=== PATIENT | male | born 1950 | race Caucasian/White ===

== ENCOUNTER 2016-11-01 12:05 | Emergency (ER) | payer MEDICARE, OTHER ==
[~2016-11-01] VITALS: Ht 182.9 cm; Wt 165.0 kg
[~2016-11-01 12:05] MED LIST: ALBU6.7H INH; APIX5TAB PO; CLON.2 PO; DUONI NEB; EFFE150C PO; FENO145T2 PO; GABA600T PO; HYZA100T6 PO; METO100T PO; NITR0.4S SL; NOVOLOGP2 SQ; NOVONP2 SQ; OXYC15TA PO; PROT40TA PO; SUCR1TAB PO; TIOT18I INH; ZYRT10TA12 PO
[2016-11-01 12:15] VITALS: BP 178/78; PULSE 84; RESP 18; TEMP 98.1; O2SAT 98
[2016-11-01 12:21] VITALS: RESP 18; O2SAT 98
[2016-11-01] MEDS ORDERED: SODIUM CHLORIDE 0.9% FLUSH 5 ML FLUSH IVF PRN ×2 (12:30→13:30)
[2016-11-01] MEDS ORDERED: RESP: ALBUTEROL 2.5 MG/IPRATROPIUM 0.5 MG NEB (SCH) NEB ONE (12:30)
[2016-11-01] MEDS ORDERED: FUROSEMIDE 40 MG/4 ML VIAL IV PUSH ONE (12:30)
--- NOTE | 2016-11-01 12:33 | PD ---
HPI Chief Complaint: Chest Pain Time Seen by Provider: 12:18 Travel History International Travel<30 days: No Contact w/Intl Traveler<30days: No Traveled to known affect area: No History of Present Illness HPI 65 y/o male presents with chest pain and shortness of breath that is been going on over the past couple days. He states he tried his inhaler but it did not help the symptoms and it made him feel worse. He states he recently went to his primary care physician and was given Lasix and potassium but he has not taken those recently. He states he had a loop recorder and was called as his heart rate Dropping Low and they advised him to come to the emergency room. He states he's had ablations before and follows with Dr. Bridges. He states before his ablation in April he had a heart catheterization as well. He states that he feels worse when he moves around. He denies other modifying factors. Quality is hard to catch breath. Severity is worsening. Duration is couple of days. PFSH Past Medical History Hx Anticoagulant Therapy: Yes (ELIQUIS) Arthritis: Yes Asthma: Yes Depression: Yes Heart Rhythm Problems: Yes (tachy and britney) Cancer: No (PROSTATE 2008, L BREAST 2006--ALSO REMOVED LYMPH NODES, COLON 2002) Cardiac Catheterization: Yes (states last ) Cardiovascular Problems: Yes (NM) High Cholesterol: Yes Chemotherapy: No Chest Pain: Yes Congestive Heart Failure: Yes COPD: Yes Cerebrovascular Accident: No Coronary Artery Disease: Yes Diabetes: Yes Diminished Hearing: Yes (bilateral aids) Endocrine: Yes Fibromyalgia: Yes Gastrointestinal Disorders: Yes (OCC ACID REFLUX) GERD: Yes Glaucoma: No Genitourinary: Yes (HX OF PROSTATE CA/PROSTATECTOMY 2008) Headaches: Yes Hepatitis: No Hiatal Hernia: Yes Hypertension: Yes Immune Disorder: No Implanted Vascular Access Dvce: Yes Kidney Stones: Yes Musculoskeletal: Yes (, HNP, SPINAL STENOSIS,back surgery 2013) Neurologic: Yes Psychiatric: Yes (CLAUSTROPHOBIC) Reproductive: No Respiratory: Yes (COPD) Integumentary: No Immunizations Current: Yes Migraines: Yes Pancreatitis: Yes Pneumonia: Yes Radiation Therapy: No Renal Failure: No Seizures: No Sleep Apnea: No Thyroid Disease: Yes Ulcer: Yes Past Surgical History Abdominal Surgery: Yes (COLON RESECTION R/T DIVERTICULITIS, COLON CA 2002) Appendectomy: Yes Body Medical Devices: /loop recorder, CAGE AND SCREWS L5-S1, CARDIAC STENT Cardiac Surgery: Yes Cholecystectomy: Yes Coronary Artery Bypass Graft: No Coronary Stent: Yes (X1) Ear Surgery: No Endocrine Surgery: No Eye Surgery: No Genitourinary Surgery: Yes (PROSTATECTOMY 2008) Gynecologic Surgery: No Hysterectomy: No Neurologic Surgery: Yes (BACK/NECK SURGERY) Oral Surgery: No Prostatectomy: Yes Thoracic Surgery: Yes (L BREAST 2006--ALSO REMOVED LYMPH NODES) Other Surgery: Yes (NECK AND BACK-L5, S1) Social History Alcohol Use: Yes (BEER OCCASSIONAL) Tobacco Use: No (quit 2003) Substance Use: No Allergies-Medications (Allergen,Severity, Reaction): Coded Allergies: Adhesives (Verified Allergy, Severe, Rash, 11/01/16) Atorvastatin (Verified Allergy, Severe, MUSCLE WEAKNESS, 11/01/16) CRESTOR (Verified Allergy, Severe, MUSCLE WEAKNESS, 11/01/16) Pravastatin (Verified Allergy, Severe, MUSCLE WEAKNESS, 11/01/16) Morphine (Verified Adverse Reaction, Severe, BECOMES VERY AGGRESSIVE, ) Reported Meds & Prescriptions Reported Meds & Active Scripts Active Prednisone 50 Mg Tab 50 Mg PO DAILY Metoprolol Tartrate 25 Mg Tab 25 Mg PO BID 30 Days Review of Systems Except as stated in HPI: all other systems reviewed are Neg Physical Exam Narrative GENERAL: Well-nourished, well-developed patient. SKIN: Warm and dry. HEAD: Normocephalic and atraumatic. EYES: No injection or drainage. ENT: No nasal drainage noted. NECK: Supple, trachea midline. CARDIOVASCULAR: Regular rate and rhythm RESPIRATORY: Breath sounds equal bilaterally. No accessory muscle use. GASTROINTESTINAL: Abdomen soft, non-tender, nondistended. EXTREMITIES: No edema. NEUROLOGICAL: Awake and alert. Moves all extremities. Normal speech. Data Data Last Documented VS Vital Signs Date Time Temp Pulse Resp B/P Pulse Ox O2 Delivery O2 Flow Rate FiO2 11/01/16 14:30 85 16 179/76 95 11/01/16 12:30 Room Air 11/01/16 12:15 98.1 Orders Electrocardiogram (11/01/16 12:19) B-Type Natriuretic Peptide (11/01/16 12:19) Ckmb (Isoenzyme) Profile (11/01/16 12:19) Complete Blood Count With Diff (11/01/16 12:19) Comprehensive Metabolic Panel (11/01/16 12:19) D-Dimer (11/01/16 12:19) Magnesium (Mg) (11/01/16 12:19) Prothrombin Time / Inr (Pt) (11/01/16 12:19) Act Partial Throm Time (Ptt) (11/01/16 12:19) Troponin I (11/01/16 12:19) Chest, Single Ap (11/01/16 12:19) Ecg Monitoring (11/01/16 12:19) Bilateral Bp Monitoring (11/01/16 12:19) Iv Access Insert/Monitor (11/01/16 12:19) Oximetry (11/01/16 12:19) Sodium Chloride 0.9% Flush (Ns Flush) (11/01/16 12:30) Albuterol-Ipratropium Neb (Duoneb Neb) (11/01/16 12:30) Furosemide Inj (Lasix Inj) (11/01/16 12:30) CKMB (11/01/16 12:23) CKMB% (11/01/16 12:23) Sodium Chloride 0.9% Flush (Ns Flush) (11/01/16 13:30) Methylprednisolone So Succ Inj (Solumedr (11/01/16 13:30) Albuterol-Ipratropium Neb (Duoneb Neb) (11/01/16 13:30) Urinalysis - C+S If Indicated (11/01/16 13:36) Labs Laboratory Tests Test 11/01/16 11/01/16 12:23 14:15 White Blood Count 11.3 TH/MM3 Red Blood Count 4.28 MIL/MM3 Hemoglobin 11.1 GM/DL Hematocrit 33.9 % Mean Corpuscular Volume 79.1 FL Mean Corpuscular Hemoglobin 26.0 PG Mean Corpuscular Hemoglobin 32.9 % Concent Red Cell Distribution Width 12.6 % Platelet Count 309 TH/MM3 Mean Platelet Volume 7.4 FL Neutrophils (%) (Auto) 64.1 % Lymphocytes (%) (Auto) 24.4 % Monocytes (%) (Auto) 7.1 % Eosinophils (%) (Auto) 3.3 % Basophils (%) (Auto) 1.1 % Neutrophils # (Auto) 7.2 TH/MM3 Lymphocytes # (Auto) 2.7 TH/MM3 Monocytes # (Auto) 0.8 TH/MM3 Eosinophils # (Auto) 0.4 TH/MM3 Basophils # (Auto) 0.1 TH/MM3 CBC Comment DIFF FINAL Differential Comment Prothrombin Time 10.5 SEC Prothromb Time International 1.0 RATIO Ratio Activated Partial 24.5 SEC Thromboplast Time D-Dimer Quantitative (PE/DVT) 0.23 MG/L FEU Sodium Level 138 MEQ/L Potassium Level 3.9 MEQ/L Chloride Level 102 MEQ/L Carbon Dioxide Level 24.6 MEQ/L Anion Gap 11 MEQ/L Blood Urea Nitrogen 14 MG/DL Creatinine 1.20 MG/DL Estimat Glomerular Filtration 61 ML/MIN Rate Random Glucose 289 MG/DL Calcium Level 7.9 MG/DL Magnesium Level 1.7 MG/DL Total Bilirubin 0.3 MG/DL Aspartate Amino Transf 28 U/L (AST/SGOT) Alanine Aminotransferase 30 U/L (ALT/SGPT) Alkaline Phosphatase 91 U/L Total Creatine Kinase 165 U/L Creatine Kinase MB 2.2 NG/ML Troponin I LESS THAN 0.02 NG/ML B-Type Natriuretic Peptide 55 PG/ML Total Protein 6.7 GM/DL Albumin 3.2 GM/DL Urine Collection Type CLEAN CATCH Urine Color YELLOW Urine Turbidity CLEAR Urine pH 5.5 Urine Specific [place] 1.008 Urine Protein NEG mg/dL Urine Glucose (UA) 500 mg/dL Urine Ketones NEG mg/dL Urine Occult Blood NEG Urine Nitrite NEG Urine Bilirubin NEG Urine Leukocyte Esterase NEG Urine WBC 0-2 /hpf Urine Squamous Epithelial 0-5 /hpf Cells Microscopic Urinalysis Comment CULT NOT INDICATED Urine Collection Time 14:15 [facility] Medical Decision Making Medical Screen Exam Complete: Yes Emergency Medical Condition: Yes Medical Record Reviewed: Yes (past history confirmed) Interpretation(s) EKG shows NSR, no ST elevation or depression, and no arrhythmias. No significant T-wave inversions. CBC & BMP Diagram 11/01/16 12:23 Last 24 hours Impressions Chest X-Ray 11/01/16 1219 Signed Impressions: Service Date/Time: Tuesday, November 01, 2016 12:32 - CONCLUSION: 1... Cardiomegaly 2. No acute focal pulmonary infiltrate or pulmonary vascular congestion. Alok Grace MD Differential Diagnosis Anemia, renal failure, pneumonia, COPD, CHF, NM.... 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 Patient happy with care, all questions answered. Patient knows that follow up is incumbent on them and to return to the emergency room immediately if new or worsening symptoms develop. Patient given strict return precautions, vitals reviewed and are normal, agrees to further workup as an outpatient. Physician Communication Physician Communication dr bridges states to dc with metoprolol decreased to 25 mg twice a day and follow-up in office Diagnosis Primary Impression: Shortness of breath Additional Impression: Bradycardia Referrals: Austin Mcclure MD call for appointment Patient Instructions: General Instructions Additional Instructions: Decrease metoprolol to 25 mg twice a day, return as needed, follow with your primary and shop superintendent this week Med/Other Pt SpecificInfo: Existing Med Changed Scripts Prednisone 50 Mg Tab50 Mg PO DAILY #5 TAB Prov:Annie Bradford MD 11/01/16 Metoprolol Tartrate 25 Mg Tab25 Mg PO BID 30 Days Ref 0 Prov:Annie Bradford MD 11/01/16 Disposition: 01 DISCHARGE HOME Condition: Stable Annie Bradford MD Nov 01, 2016 12:33
[2016-11-01 12:38] LABS: AUTOMATED NEUTROPHIL # 7.2 TH/MM3 (1.8-7.7); BASOPHIL # 0.1 TH/MM3 (0-0.2); BASOPHIL % 1.1 % (0.0-2.0); EOSINOPHIL # 0.4 TH/MM3 (0-0.4); EOSINOPHIL % 3.3 % (0.0-4.0); HEMATOCRIT 33.9 % (39.0-51.0); HEMO FLAGS DIFF FINAL; LYMPH % 24.4 % (9.0-44.0); LYMPHOCYTE # 2.7 TH/MM3 (1.0-4.8); MEAN CELL VOLUME 79.1 FL (80.0-100.0); MEAN CORPUSCULAR HGB CONC 32.9 % (32.0-36.0); MONO % 7.1 % (0.0-8.0); NEUT % 64.1 % (16.0-70.0); PLATELET COUNT 309 TH/MM3 (150-450); RED BLOOD COUNT 4.28 MIL/MM3 (4.50-5.90); RED CELL DISTRIBUTION WIDTH 12.6 % (11.6-17.2); WHITE BLOOD COUNT 11.3 TH/MM3 (4.0-11.0)
[2016-11-01 12:47] LABS: CHLORIDE 102 MEQ/L (98-107); POTASSIUM 3.9 MEQ/L (3.5-5.1); SODIUM (NA) 138 MEQ/L (136-145)
[2016-11-01 12:51] LABS: ANION GAP 11 MEQ/L (5-15); BICARBONATE 24.6 MEQ/L (21.0-32.0); BLOOD UREA NITROGEN 14 MG/DL (7-18); MAGNESIUM 1.7 MG/DL (1.5-2.5)
[2016-11-01 12:52] LABS: APTT (PATIENT) 24.5 SEC (24.3-30.1); PROTHROMBIN TIME - PATIENT 10.5 SEC (9.8-11.6)
[2016-11-01 12:54] LABS: ALT (GPT) 30 U/L (12-78); AST (GOT) 28 U/L (15-37); GLOMERULAR FILTRATION RATE 61 ML/MIN (>89)
[2016-11-01 12:55] LABS: TOTAL BILIRUBIN ADULT 0.3 MG/DL (0.2-1.0)
[2016-11-01 12:56] LABS: CREATINE KINASE 165 U/L (39-308)
[2016-11-01 12:57] LABS: ALKALINE PHOSPHATASE 91 U/L (45-117)
[2016-11-01 13:08] LABS: CKMB 2.2 NG/ML (0.5-3.6)
[2016-11-01 13:10] VITALS: BP 195/80; PULSE 88; RESP 16; O2SAT 98
[2016-11-01] MEDS ORDERED: RESP: ALBUTEROL 2.5 MG/IPRATROPIUM 0.5 MG NEB (SCH) INH ONE (13:30)
[2016-11-01] MEDS ORDERED: methylPREDNISolone SOD SUCC 125 MG/2 ML VIAL IVP ONE (13:30)
[2016-11-01] MEDS ORDERED: METO25TA3 PO (13:58)
[2016-11-01] MEDS ORDERED: PRED50 PO (13:59)
--- NOTE | 2016-11-01 14:21 | RADHPO ---
EXAM DATE/TIME: 11/01/2016 12:32 [facility] COMPARISON: CHEST SINGLE AP, May 11, 2016, 16:40. INDICATIONS: Short of breath MEDICAL HISTORY: Congestive heart failure. Myocardial infarction. Hypertension. AFib, CAD SURGICAL HISTORY: Coronary artery stent. Cardiac catheterization ENCOUNTER: Initial ACUITY: 1 day PAIN SCORE: 10/10 LOCATION: Bilateral chest FINDINGS: The heart remains enlarged. The pulmonary vascular pattern is normal. The lungs are clear without a cute focal alveolar consolidation. CONCLUSION: 1... Cardiomegaly 2. No acute focal pulmonary infiltrate or pulmonary vascular congestion. Alok Grace MD on November 01, 2016 at 14:14 Board Certified Radiologist. This report was verified electronically.
[2016-11-01 14:30] VITALS: BP 179/76; PULSE 85; RESP 16; O2SAT 95
[2016-11-01 14:41] LABS: BLOOD, URINE NEG (NEG); GLUCOSE,URINE 500 mg/dL (NEG); KETONE, URINE NEG (NEG); NITRITE,URINE NEG (NEG); PH, URINE 5.5 (5.0-8.5)
[2016-11-01 14:50] LABS: COMMENT (UR) CULT NOT INDICATED; CULTURE IF INDICATED CULT NOT INDICATED; METHOD OF COLLECTION CLEAN CATCH; SQUAMOUS EPITHELIAL CELL URINE 0-5 /hpf (0-5); URINE COLOR YELLOW (YELLW/STRAW); WBC, URINE 0-2 /hpf (0-5)
--- NOTE | 2016-11-01 15:17 | EKG ---
Date Performed: 11/01/2016 Time Performed: 12:12:58 PTAGE: 65 years EKG: Sinus rhythm . Possible left anterior fascicular block Borderline ECG NO SIGNIFICANT CHANGE FROM PRIOR ELECTROCARD IOGRAM. PREVIOUS TRACING : 06/08/2016 10.57 DOCTOR: Luis Germain Interpretating Date/Time 11/01/2016 15:17:12
[2016-11-01] MEDS ORDERED: GLIM1TAB PO (17:36)
[2016-11-01] MEDS ORDERED: HYZA100T6 PO (17:36)
[2016-11-01] MEDS ORDERED: ALBU6.7H INH (17:36)
[2016-11-01] MEDS ORDERED: CETI10 PO (17:36)
[2016-11-01] MEDS ORDERED: APIX5TAB PO (17:36)
[2016-11-01] MEDS ORDERED: CARA1TAB6 PO (17:36)
[2016-11-01] MEDS ORDERED: COQ-30CA2 (17:36)
[2016-11-01] MEDS ORDERED: AMLO5TAB2 PO (17:36)
[2016-11-01] MEDS ORDERED: CITA20TA4 PO (17:36)
[2016-11-01] MEDS ORDERED: OXYC15TA PO (17:36)
[2016-11-01] MEDS ORDERED: PANT40TA3 PO (17:36)
[2016-11-01] MEDS ORDERED: GABA600T PO (17:36)
[2016-11-01] MEDS ORDERED: SPIRCAP INH (17:36)
[2016-11-01] MEDS ORDERED: ATOR10TA15 PO (17:36)
[2016-11-01] MEDS ORDERED: ALBU.5I NEB (17:36)
[2016-11-01] MEDS ORDERED: METO-426 PO (17:36)
[2016-11-01] MEDS ORDERED: NOVONP2 SQ (17:36)
[2016-11-01] MEDS ORDERED: NITR1SUB3 SL (17:36)
== END 2016-11-01 15:12 | disposition home or self-care (01) ==
LOC: PHED 12:05
DX: I51.7 Cardiomegaly (principal); R06.02 Shortness of breath; R00.1 Bradycardia, unspecified; J44.9 Chronic obstructive pulmonary disease, unspecified; I10 Essential (primary) hypertension; K44.9 Diaphragmatic hernia without obstruction or gangrene; E11.9 Type 2 diabetes mellitus without complications; E78.00 Pure hypercholesterolemia, unspecified; F32.9 Major depressive disorder, single episode, unspecified; J45.909 Unspecified asthma, uncomplicated; M19.90 Unspecified osteoarthritis, unspecified site; Z79.01 Long term (current) use of anticoagulants; Z95.818 Presence of other cardiac implants and grafts; Z85.46 Personal history of malignant neoplasm of prostate; Z87.442 Personal history of urinary calculi
CPT/HCPCS: 71010; 80053; 81001; 82550; 82552; 83735; 83880; 84484; 85025; 85379; 85610; 85730; 93005; 94640; 94664; 96374; 96375; 99285; J1940; J2930

== ENCOUNTER 2017-02-10 02:30 | Emergency (ER) | payer OTHER ==
[~2017-02-10] VITALS: Ht 182.9 cm; Wt 149.0 kg
[~2017-02-10 02:30] MED LIST changes: +ALBU.5I NEB; +AMLO5TAB2 PO; +ATOR10TA15 PO; +CARA1TAB6 PO; +CETI10 PO; +CITA20TA4 PO; -CLON.2 PO; +COQ-30CA2; -DUONI NEB; -EFFE150C PO; -FENO145T2 PO; +GLIM1TAB PO; +METO-426 PO; -METO100T PO; +METO25TA3 PO; -NITR0.4S SL; +NITR1SUB3 SL; -NOVOLOGP2 SQ; +PANT40TA3 PO; +PRED50 PO; -PROT40TA PO; +SPIRCAP INH; -SUCR1TAB PO; -TIOT18I INH; -ZYRT10TA12 PO
[2017-02-10 02:43] VITALS: PULSE 65; RESP 16; TEMP 98.5; O2SAT 94
[2017-02-10 03:00] VITALS: BP 189/75; PULSE 63; RESP 16; TEMP 98.5; O2SAT 96
[2017-02-10] MEDS ORDERED: ORPHENADRINE INJ 60 MG/2 ML AMP IM ONE (03:30)
[2017-02-10] MEDS ORDERED: ONDANSETRON HCL 4 MG/2 ML VIAL IM ONE (03:30)
[2017-02-10] MEDS ORDERED: HYDROmorphone HCL PF 2 MG/ML VIAL IM ONE (03:30)
--- NOTE | 2017-02-10 03:43 | PD ---
HPI Chief Complaint: Back/ Neck Pain or Injury Time Seen by Provider: 03:12 Travel History International Travel<30 days: No Contact w/Intl Traveler<30days: No Traveled to known affect area: No History of Present Illness HPI The patient is a 66-year-old male who has a history of multiple disks, most of which are in the lower lumbar and upper sacral region. He moved at approximately 300 PM yesterday and felt a pop in his low back. He has pain in the left leg that radiates below his left knee. His pain is a 10 over 10 and he experiences a burning sensation and the left thigh. The patient should be used to narcotics, he has been on oxycodone 15 mg for over a year. He denies any bladder or bowel dysfunction. The patient had a CT scan of the lumbosacral spine yesterday at [facility]. PFS Past Medical History Hx Anticoagulant Therapy: Yes (ELIQUIS) Arthritis: Yes Asthma: Yes Depression: Yes Heart Rhythm Problems: Yes (tachy and britney) Cardiac Catheterization: Yes (states last ) Cardiovascular Problems: Yes (MA) High Cholesterol: Yes Chemotherapy: No Chest Pain: Yes Congestive Heart Failure: Yes COPD: Yes Cerebrovascular Accident: No Coronary Artery Disease: Yes Diabetes: Yes Patient Takes Glucophage: No Diminished Hearing: Yes (bilateral aids) Endocrine: Yes Fibromyalgia: Yes Gastrointestinal Disorders: Yes (OCC ACID REFLUX) GERD: Yes Glaucoma: No Genitourinary: Yes (HX OF PROSTATE CA/PROSTATECTOMY 2008) Headaches: Yes Hepatitis: No Hiatal Hernia: Yes Hypertension: Yes Immune Disorder: No Implanted Vascular Access Dvce: Yes Kidney Stones: Yes Musculoskeletal: Yes (, HNP, SPINAL STENOSIS,back surgery 2013) Neurologic: Yes Psychiatric: Yes (CLAUSTROPHOBIC) Reproductive: No Respiratory: Yes (COPD) Integumentary: No Immunizations Current: Yes Migraines: Yes Pancreatitis: Yes Pneumonia: Yes Radiation Therapy: No Renal Failure: No Seizures: No Sleep Apnea: No Thyroid Disease: Yes Ulcer: Yes Tetanus Vaccination: < 5 Years Influenza Vaccination: Yes Past Surgical History Abdominal Surgery: Yes (COLON RESECTION R/T DIVERTICULITIS, COLON CA 2002) Appendectomy: Yes Body Medical Devices: /loop recorder, CAGE AND SCREWS L5-S1, CARDIAC STENT Cardiac Surgery: Yes Cholecystectomy: Yes Coronary Artery Bypass Graft: No Coronary Stent: Yes (X1) Ear Surgery: No Endocrine Surgery: No Eye Surgery: No Genitourinary Surgery: Yes (PROSTATECTOMY 2008) Gynecologic Surgery: No Hysterectomy: No Neurologic Surgery: Yes (BACK/NECK SURGERY) Oral Surgery: No Prostatectomy: Yes Thoracic Surgery: Yes (L BREAST 2006--ALSO REMOVED LYMPH NODES) Other Surgery: Yes (NECK AND BACK-L5, S1, ABLATIONX2 2015) Family History Family Myocardial Infarction: Yes Social History Alcohol Use: Yes (BEER OCCASSIONAL) Tobacco Use: No (quit 2003) Substance Use: No Allergies-Medications (Allergen,Severity, Reaction): Coded Allergies: Adhesives (Verified Allergy, Severe, Rash, 02/10/17) Atorvastatin (Verified Allergy, Severe, MUSCLE WEAKNESS, 02/10/17) CRESTOR (Verified Allergy, Severe, MUSCLE WEAKNESS, 02/10/17) Pravastatin (Verified Allergy, Severe, MUSCLE WEAKNESS, 02/10/17) Morphine (Verified Adverse Reaction, Severe, BECOMES VERY AGGRESSIVE, 02/10) Reported Meds & Prescriptions Reported Meds & Active Scripts Active Prednisone 50 Mg Tab 50 Mg PO DAILY Metoprolol Tartrate 25 Mg Tab 25 Mg PO BID 30 Days Reported Spiriva Handihaler (Tiotropium Inh) 18 Mcg Cap 18 Mcg INH DAILY 1 capsule = 18 mcg Pantoprazole (Pantoprazole Sodium) 40 Mg Tab 40 Mg PO BID Oxycodone (Oxycodone HCl) 15 Mg Tab 15 Mg PO Q8H PRN Nitroglycerin SL (Nitroglycerin) 0.4 Mg Subl 0.4 Mg SL DIRECTED PRN ONE TABLET UNDER THE TONGUE NEEDED FOR CHEST PAIN, MAY REPEAT EVERY FIVE MINUTES FOR A TOTAL OF 3 DOSES OR CALL 911 IF NO RELIEF Hyzaar (Losartan-Hydrochlorothiazide) 100-25 Mg Tab 1 Tab PO DAILY Cetirizine (Cetirizine HCl) 10 Mg Tab 10 Mg PO DAILY PRN Carafate (Sucralfate) 1 Gm Tab 1 Gm PO BID On empty stomach Eliquis (Apixaban) 5 Mg Tab 5 Mg PO BID Metoprolol Tartrate 75 Mg Tab 75 Mg PO DAILY Albuterol Neb (Albuterol Sulfate) 2.5 Mg/0.5 Ml Neb 2.5 Mg NEB Q6HR NEB PRN Note: The Albuterol Sulfate Inhalation Solution is concentrated and must be diluted. Read complete instructions carefully before using. Proventil Hfa 6.7 GM Inh (Albuterol Sulfate) 90 Mcg/Act Aer 2 Puff INH Q4-6H PRN Novolin N Inj (Insulin Human NPH) 100 Unit/Ml Inj 100 Units SQ BID Gabapentin 600 Mg Tab 600 Mg PO BID Citalopram (Citalopram Hydrobromide) 20 Mg Tab 20 Mg PO DAILY Coq-10 (Coenzyme Q10 (Ubidecarenone)) 30 Mg Cap Atorvastatin (Atorvastatin Calcium) 10 Mg Tab 10 Mg PO HS Glimepiride 1 Mg Tab 1 Mg PO DAILY Take with breakfast or first main meal Amlodipine (Amlodipine Besylate) 5 Mg Tab 5 Mg PO DAILY Review of Systems Except as stated in HPI: all other systems reviewed are Neg Physical Exam Narrative GENERAL: Well-nourished, obese patient in severe distress with his low back discomfort. His vital signs show blood pressure 189/75 but are otherwise normal.. SKIN: Focused skin assessment warm/dry. HEAD: Normocephalic. EYES: No scleral icterus. No injection or drainage. NECK: Supple, trachea midline. No JVD or lymphadenopathy. CARDIOVASCULAR: Regular rate and rhythm without murmurs, gallops, or rubs. RESPIRATORY: Breath sounds equal bilaterally. No accessory muscle use. GASTROINTESTINAL: Abdomen soft, non-tender, nondistended. MUSCULOSKELETAL: No cyanosis, or edema. There is tenderness from L3-4 to S- 3. No obvious deformity is noted. Straight leg raising is positive with just slight extension of the knee on the left. Deep tendon reflexes are +1 bilaterally over the patellae and +2 on the Achilles bilaterally. The pinprick is reduced on the left as compared to the right on both the upper and lower leg. He can still feel some pinprick sensation on the left leg. BACK: Nontender without obvious deformity. No CVA tenderness. Data Data Last Documented VS Vital Signs Date Time Temp Pulse Resp B/P Pulse Ox O2 Delivery O2 Flow Rate FiO2 02/10/17 03:02 63 18 02/10/17 03:00 98.5 189/75 96 Orders Hydromorphone Pf Inj (Dilaudid Pf Inj) (02/10/17 03:30) Ondansetron Inj (Zofran Inj) (02/10/17 03:30) Orphenadrine Inj (Norflex Inj) (02/10/17 03:30) Methylprednisolone So Succ Inj (Solumedr (02/10/17 03:45) Ketorolac Inj (Toradol Inj) (02/10/17 03:45) MDM Medical Decision Making Medical Screen Exam Complete: Yes Emergency Medical Condition: Yes Medical Record Reviewed: Yes Interpretation(s) I could not access [facility] imaging CT scans. Differential Diagnosis Herniated nucleus pulposus, acute lumbar strain, compression fracture lumbar spine, lumbar radiculopathy Narrative Course The patient likely has a herniated disc causing a lumbar radiculopathy. Unfortunately, we could not access the CT results done yesterday. The results of the CT scan, however, are unlikely to change our treatment tonight. Is now 0500 and the patient feels much more comfortable and his pain he states is a 5/10. He dozes off occasionally but is easily woken up. Diagnosis Primary Impression: Lumbar disc prolapse with compression radiculopathy Additional Instructions: Follow-up with Dr. Morales this week. I do not think he will want to repeat your CT scan but he will need to evaluate the one that was taken yesterday. Med/Other Pt SpecificInfo: No Change to Meds Disposition: 01 DISCHARGE HOME Condition: Stable Manolo Katz MD February 10, 2017 03:43
[2017-02-10] MEDS ORDERED: methylPREDNISolone SOD SUCC 125 MG/2 ML VIAL IM ONE (03:45)
[2017-02-10] MEDS ORDERED: KETOROLAC TROMETHAMINE 60 MG/2 ML (IM) VIAL IM ONE (03:45)
[2017-02-10 05:24] VITALS: BP 174/72; PULSE 64; RESP 18; O2SAT 96
== END 2017-02-10 05:27 | disposition home or self-care (01) ==
LOC: PHED 02:30
DX: M54.16 Radiculopathy, lumbar region (principal); M51.26 Other intervertebral disc displacement, lumbar region; Z79.01 Long term (current) use of anticoagulants; E78.00 Pure hypercholesterolemia, unspecified; I50.9 Heart failure, unspecified; J44.9 Chronic obstructive pulmonary disease, unspecified; I25.10 Atherosclerotic heart disease of native coronary artery without angina pectoris; E11.9 Type 2 diabetes mellitus without complications; I10 Essential (primary) hypertension; M48.00 Spinal stenosis, site unspecified; Z95.5 Presence of coronary angioplasty implant and graft; Z79.4 Long term (current) use of insulin
CPT/HCPCS: 96372; 99283; J1170; J1885; J2360; J2405; J2930

== ENCOUNTER 2017-05-24 19:59 | Emergency (ER) | payer OTHER ==
[~2017-05-24] VITALS: Ht 182.9 cm; Wt 147.4 kg
[2017-05-24 20:02] VITALS: BP 184/84; PULSE 90; RESP 18; TEMP 98.3
[2017-05-24] MEDS ORDERED: DULO1CAP3 PO (20:39)
[2017-05-24] MEDS ORDERED: KETOROLAC TROMETHAMINE 60 MG/2 ML (IM) VIAL IM ONE (21:00)
[2017-05-24] MEDS ORDERED: HYDROmorphone HCL PF 1 MG/ML VIAL IV PUSH ONE (21:00)
[2017-05-24] MEDS ORDERED: ORPHENADRINE INJ 60 MG/2 ML AMP IM ONE (21:00)
--- NOTE | 2017-05-24 21:12 | PD ---
HPI Chief Complaint: Pain: Acute or Chronic Time Seen by Provider: 20:36 Travel History International Travel<30 days: No Contact w/Intl Traveler<30days: No Traveled to known affect area: No History of Present Illness HPI 66-year-old male presents to the emergency room for evaluation of acute on chronic pain. Patient has had chronic right lateral flank pain for the past year. States it worsened over the past 23 days. He went to his primary care physician 3 days ago and got a shot of Toradol. States that has worn off. He went to his neurosurgeon yesterday where he was informed that he may need to have thoracic spine CT. Patient did not receive an outpatient order for imaging. His neurosurgeon called in prescriptions for baclofen and Toradol but the patient 's was unable to crab picker the prescriptions because the pharmacy closed before she got off work. States his pain management physician recently fired him because he was not taking medications as directed, he was taking them less than he was supposed to and had left over pills at his monthly visit. He has not taken Tylenol or Motrin for pain. Pain is worse with any range of motion of the back. It is relieved with pressure applied to the area as when he lies on his right side. Patient states he has had kidney stones in the past and he knows for a fact that this pain is different and not from a kidney stone. Denies fever, chills, nausea, vomiting, and diarrhea. Denies abdominal pain. Presents today requesting something for pain, states Dilaudid is the only thing that works. He is also interested in steroid injections in the spine. PFSH Past Medical History Hx Anticoagulant Therapy: Yes Arthritis: Yes Asthma: Yes Depression: Yes Heart Rhythm Problems: Yes (tachy and britney) Cancer: Yes (PROSTATE 2008, L BREAST 2006--ALSO REMOVED LYMPH NODES, COLON 2002 ) Cardiac Catheterization: Yes Cardiovascular Problems: Yes High Cholesterol: Yes Chemotherapy: No Chest Pain: Yes Congestive Heart Failure: Yes COPD: Yes Cerebrovascular Accident: Yes Coronary Artery Disease: Yes Diabetes: Yes Patient Takes Glucophage: No Diminished Hearing: Yes (bilateral aids) Endocrine: Yes Fibromyalgia: Yes Gastrointestinal Disorders: Yes (OCC ACID REFLUX) GERD: Yes Glaucoma: No Genitourinary: Yes (HX OF PROSTATE CA/PROSTATECTOMY 2008) Headaches: Yes Hepatitis: No Hiatal Hernia: Yes Hypertension: Yes Immune Disorder: No Implanted Vascular Access Dvce: Yes Kidney Stones: Yes Musculoskeletal: Yes (HNP, SPINAL STENOSIS, back surgery 2013) Neurologic: Yes Psychiatric: Yes (CLAUSTROPHOBIC) Reproductive: No Respiratory: Yes (COPD) Integumentary: No Immunizations Current: Yes Migraines: Yes Pancreatitis: Yes Pneumonia: Yes Radiation Therapy: No Renal Failure: No Seizures: No Sleep Apnea: No Thyroid Disease: Yes Ulcer: Yes Tetanus Vaccination: < 5 Years Influenza Vaccination: No Past Surgical History Abdominal Surgery: Yes (COLON RESECTION R/T DIVERTICULITIS, COLON CA 2002) Appendectomy: Yes Body Medical Devices: loop recorder, CAGE AND SCREWS L5-S1, CARDIAC STENT Cardiac Surgery: Yes Cholecystectomy: Yes Coronary Artery Bypass Graft: No Coronary Stent: Yes (X1) Ear Surgery: No Endocrine Surgery: No Eye Surgery: No Genitourinary Surgery: Yes (PROSTATECTOMY 2008) Gynecologic Surgery: No Hysterectomy: No Neurologic Surgery: Yes (BACK/NECK SURGERY) Oral Surgery: No Prostatectomy: Yes Thoracic Surgery: Yes (L BREAST 2006--ALSO REMOVED LYMPH NODES) Other Surgery: Yes (NECK AND BACK-L5, S1, ABLATIONX2 2015) Family History Family Myocardial Infarction: Yes Social History Alcohol Use: No Tobacco Use: No (quit 2003) Substance Use: No Allergies-Medications (Allergen,Severity, Reaction): Coded Allergies: adhesive (Unverified Allergy, Severe, Rash, 05/24/17) atorvastatin (Unverified Allergy, Severe, MUSCLE WEAKNESS, 05/24/17) pravastatin (Unverified Allergy, Severe, MUSCLE WEAKNESS, 05/24/17) rosuvastatin (Unverified Allergy, Severe, MUSCLE WEAKNESS, 05/24/17) morphine (Unverified Adverse Reaction, Severe, BECOMES VERY AGGRESSIVE, ) Reported Meds & Prescriptions Reported Meds & Active Scripts Active Reported Duloxetine DR (Duloxetine HCl) 60 Mg Capdr 60 Mg PO DAILY Spiriva Handihaler (Tiotropium Inh) 18 Mcg Cap 18 Mcg INH DAILY 1 capsule = 18 mcg Pantoprazole (Pantoprazole Sodium) 40 Mg Tab 40 Mg PO BID Oxycodone (Oxycodone HCl) 15 Mg Tab 15 Mg PO Q8H PRN Nitroglycerin SL (Nitroglycerin) 0.4 Mg Subl 0.4 Mg SL DIRECTED PRN ONE TABLET UNDER THE TONGUE NEEDED FOR CHEST PAIN, MAY REPEAT EVERY FIVE MINUTES FOR A TOTAL OF 3 DOSES OR CALL 911 IF NO RELIEF Carafate (Sucralfate) 1 Gm Tab 1 Gm PO BID On empty stomach Eliquis (Apixaban) 5 Mg Tab 5 Mg PO BID Albuterol Neb (Albuterol Sulfate) 2.5 Mg/0.5 Ml Neb 2.5 Mg NEB Q6HR NEB PRN Note: The Albuterol Sulfate Inhalation Solution is concentrated and must be diluted. Read complete instructions carefully before using. Proventil Hfa 6.7 GM Inh (Albuterol Sulfate) 90 Mcg/Act Aer 2 Puff INH Q4-6H PRN Novolin N Inj (Insulin Human NPH) 100 Unit/Ml Inj 100 Units SQ BID Gabapentin 600 Mg Tab 600 Mg PO BID Atorvastatin (Atorvastatin Calcium) 10 Mg Tab 10 Mg PO HS Glimepiride 1 Mg Tab 1 Mg PO DAILY Take with breakfast or first main meal Amlodipine (Amlodipine Besylate) 5 Mg Tab 5 Mg PO DAILY Review of Systems Except as stated in HPI: all other systems reviewed are Neg Physical Exam Narrative GENERAL: Well-nourished, morbidly obese male in no acute distress. Afebrile. Ambulatory. SKIN: Focused skin assessment warm/dry. No erythema or ecchymosis. HEAD: Normocephalic. EYES: No scleral icterus. No injection or drainage. NECK: Supple, trachea midline. No JVD or lymphadenopathy. CARDIOVASCULAR: Regular rate and rhythm without murmurs, gallops, or rubs. RESPIRATORY: Breath sounds equal bilaterally. No accessory muscle use. GASTROINTESTINAL: Abdomen soft, non-tender, nondistended. BACK: Nontender without obvious deformity. No CVA tenderness. No midline tenderness of the thoracic spine. There is tenderness to palpation of the right lateral flank. Data Data Last Documented VS Vital Signs Date Time Temp Pulse Resp B/P (MAP) Pulse Ox O2 Delivery O2 Flow Rate FiO2 05/24/17 20:02 98.3 90 18 184/84 (117) Orders Orders Ketorolac Inj (Toradol Inj) (05/24/17 21:00) Orphenadrine Inj (Norflex Inj) (05/24/17 21:00) Hydromorphone Pf Inj (Dilaudid Pf Inj) (05/24/17 21:00) Hydromorphone Pf Inj (Dilaudid Pf Inj) (05/24/17 21:15) [facility] Medical Decision Making Medical Screen Exam Complete: Yes Emergency Medical Condition: Yes Medical Record Reviewed: Yes Differential Diagnosis Thoracic spine compression fracture, muscle spasm, strain, nephrolithiasis Narrative Course See 6-year-old morbidly obese male presents to the emergency room for evaluation of right-sided chronic flank pain. Patient has had pain for one year. States it is exacerbated 2-3 days ago without trauma or injury. No focal neurological deficits. No midline tenderness. Patient states his primary care physician and neurosurgeon believe it is due to slipped disc in his thoracic spine but he has not had any outpatient imaging of the thoracic spine. States he has had kidney stones and he knows it is absolutely not a kidney stone. Pain is worsened with certain range of motion. He has not taken anything for pain. Eforsce shows no prescriptions over the past month. I do not suspect drug-seeking behavior. Patient was given Toradol, Norflex, and Dilaudid in the emergency room. He was discharged with instructions to follow up with his neurosurgeon and primary care physician and/or pain management physician. Told to return for worsening symptoms. He understands and agrees to plan. Diagnosis Primary Impression: Flank pain, chronic Referrals: Primary Care Physician Additional Instructions: Rest and drink plenty of fluids. Take Tylenol as directed, as needed for pain. Apply ice to the affected area for 20 minutes at a time, as needed for pain and swelling. Follow-up with a primary care physician. Return to the emergency room for worsening symptoms. Disposition: 01 DISCHARGE HOME Condition: Stable Lola Harris May 24, 2017 21:12
[2017-05-24] MEDS ORDERED: HYDROmorphone HCL PF 1 MG/ML VIAL IM ONE (21:15)
== END 2017-05-24 21:55 | disposition home or self-care (01) ==
LOC: PHEFT 19:59
DX: G89.29 Other chronic pain (principal); R10.9 Unspecified abdominal pain; Z87.891 Personal history of nicotine dependence; Z79.01 Long term (current) use of anticoagulants; J44.9 Chronic obstructive pulmonary disease, unspecified; E78.00 Pure hypercholesterolemia, unspecified; I11.0 Hypertensive heart disease with heart failure; I50.9 Heart failure, unspecified; Z86.73 Personal history of transient ischemic attack (TIA), and cerebral infarction without residual deficits; I25.10 Atherosclerotic heart disease of native coronary artery without angina pectoris; E11.9 Type 2 diabetes mellitus without complications; H91.93 Unspecified hearing loss, bilateral; K21.9 Gastro-esophageal reflux disease without esophagitis; Z79.899 Other long term (current) drug therapy; Z85.46 Personal history of malignant neoplasm of prostate
CPT/HCPCS: 96372; 99284; J1170; J1885; J2360

== ENCOUNTER 2017-06-26 18:58 | Inpatient (IN) | payer OTHER, MEDICARE ==
[~2017-06-26] VITALS: Ht 182.9 cm; Wt 147.6 kg
[~2017-06-26 18:58] MED LIST changes: -CETI10 PO; -CITA20TA4 PO; -COQ-30CA2; +DULO1CAP3 PO; -HYZA100T6 PO; -METO-426 PO; -METO25TA3 PO; -PRED50 PO
[2017-06-26 19:01] VITALS: BP 155/72; PULSE 77; RESP 20; TEMP 98.3; O2SAT 99
[2017-06-26] MEDS ORDERED: SODIUM CHLORIDE 0.9% FLUSH 10 ML FLUSH IV FLUSH PRN ×2 (19:45→23:30)
[2017-06-26 20:15] VITALS: BP 151/48; PULSE 73; RESP 20; O2SAT 97
--- NOTE | 2017-06-26 20:20 | PD ---
HPI Chief Complaint: Abnormal Results Time Seen by Provider: 19:31 Travel History International Travel<30 days: No Contact w/Intl Traveler<30days: No Traveled to known affect area: No History of Present Illness HPI 66-year-old male presents to the emergency department at the recommendation of his primary care provider for low hemoglobin. Patient reportedly was seen last week by his primary care provider is identified to have a hemoglobin of 8.5 and elevated white cell count. Patient was receiving in the office and had blood work done on Sunday and identified today to have a hemoglobin of 7.2. Encouraged come to the emergency room for further evaluation. Patient does have history of atrial fibrillation and is prescribed Eliquis. Patient denies any gross red blood per rectum/hematochezia or melena; patient has also had no nausea or vomiting no coffee-ground emesis or hematemesis. Patient has had subjective fever and chills. Patient concerned because about 3 months ago underwent upper endoscopy and colonoscopy by his outside production inspector Dr. Holbrook and biopsy was performed and he is concerned that perhaps something was nicked and caused him to have these issues.. Patient has had no near-syncope or syncope. Patient has noted some mild increase of shortness of breath with exertion. Patient's had no chest pain. Patient has noted some occasional left- sided neck pain but has not at this time. Patient is also had some intermittent abdominal discomfort in the right lower quadrant greater than the left lower quadrant. Patient has had previous partial colectomy and prostatectomy. Patient is unable to identify exacerbating or alleviating factors. Patient rates discomfort at worst 6/10 in intensity; currently 0/10 in intensity. reports that last week she did note some dark stool but that has resolved. No urinary symptoms. No recent respiratory illness or febrile illness. Patient does have a history of diverticulitis no recent antibiotic use or history of colitis. PFSH Past Medical History Narrative Medical Arthritis anemia asthma atrial fibrillation dyslipidemia CHF COPD CVA CAD diabetes diminished hearing morbid/clinical obesity fibromyalgia hypertension prostate cancer prostatectomy diverticulitis colon cancer endoscopy colonoscopy polypectomy pancreatitis pneumonia hypothyroidism cardiac catheterization with stent placement and loop recorder; no tobacco use; reviewed Hx Anticoagulant Therapy: Yes Arthritis: Yes Asthma: Yes Atrial Fibrillation: Yes Depression: Yes Heart Rhythm Problems: Yes Cancer: Yes (PROSTATE 2008, L BREAST 2006--ALSO REMOVED LYMPH NODES, COLON 2002 ) Cardiac Catheterization: Yes Cardiovascular Problems: Yes High Cholesterol: Yes Chemotherapy: No Chest Pain: Yes Congestive Heart Failure: Yes COPD: Yes Cerebrovascular Accident: Yes Coronary Artery Disease: Yes Diabetes: Yes Patient Takes Glucophage: No Diminished Hearing: Yes (bilateral aids) Endocrine: Yes Fibromyalgia: Yes Gastrointestinal Disorders: Yes (OCC ACID REFLUX) GERD: Yes Glaucoma: No Genitourinary: Yes (HX OF PROSTATE CA/PROSTATECTOMY 2008) Headaches: Yes Hepatitis: No Hiatal Hernia: Yes Hypertension: Yes Immune Disorder: No Implanted Vascular Access Dvce: Yes Kidney Stones: Yes Musculoskeletal: Yes (HNP, SPINAL STENOSIS, back surgery 2013) Neurologic: Yes Psychiatric: Yes (CLAUSTROPHOBIC) Reproductive: No Respiratory: Yes Integumentary: No Immunizations Current: Yes Migraines: Yes Pancreatitis: Yes Pneumonia: Yes Radiation Therapy: No Renal Failure: No Seizures: No Sleep Apnea: No Thyroid Disease: Yes Ulcer: Yes Past Surgical History Abdominal Surgery: Yes (COLON RESECTION R/T DIVERTICULITIS, COLON CA 2002) Appendectomy: Yes Body Medical Devices: loop recorder, CAGE AND SCREWS L5-S1, CARDIAC STENT Cardiac Surgery: Yes Cholecystectomy: Yes Coronary Artery Bypass Graft: No Coronary Stent: Yes (X1) Ear Surgery: No Endocrine Surgery: No Eye Surgery: No Genitourinary Surgery: Yes (PROSTATECTOMY 2008) Gynecologic Surgery: No Hysterectomy: No Neurologic Surgery: Yes (BACK/NECK SURGERY) Oral Surgery: No Prostatectomy: Yes Thoracic Surgery: Yes (L BREAST 2006--ALSO REMOVED LYMPH NODES) Other Surgery: Yes (NECK AND BACK-L5, S1, ABLATIONX2 2015) Family History Family Myocardial Infarction: Yes Social History Alcohol Use: Yes (SOCIALLY) Tobacco Use: No (2003 QUIT) Substance Use: No Allergies-Medications (Allergen,Severity, Reaction): Coded Allergies: adhesive (Unverified Allergy, Severe, Rash, 06/26/17) atorvastatin (Unverified Allergy, Severe, MUSCLE WEAKNESS, 06/26/17) pravastatin (Unverified Allergy, Severe, MUSCLE WEAKNESS, 06/26/17) rosuvastatin (Unverified Allergy, Severe, MUSCLE WEAKNESS, 06/26/17) morphine (Unverified Adverse Reaction, Severe, BECOMES VERY AGGRESSIVE, ) Reported Meds & Prescriptions Reported Meds & Active Scripts Active Reported Coq10 (Coenzyme Q10 (Ubidecarenone)) 30 Mg Cap 30 Mg PO DAILY Isosorbide Mononitrate 20 Mg Tab 30 Mg PO BID Take 2 doses [address]. [address] (Duloxetine HCl) 60 Mg Capdr 60 Mg PO DAILY Metoprolol Tartrate 75 Mg Tab 75 Mg PO BID Losartan-Hydrochlorothiazide 100-25 Mg Tab 1 Tab PO DAILY Duloxetine DR (Duloxetine HCl) 60 Mg Capdr 60 Mg PO DAILY Pantoprazole (Pantoprazole Sodium) 40 Mg Tab 40 Mg PO BID Oxycodone (Oxycodone HCl) 15 Mg Tab 15 Mg PO Q8H PRN Nitroglycerin SL (Nitroglycerin) 0.4 Mg Subl 0.4 Mg SL DIRECTED PRN ONE TABLET UNDER THE TONGUE NEEDED FOR CHEST PAIN, MAY REPEAT EVERY FIVE MINUTES FOR A TOTAL OF 3 DOSES OR CALL 911 IF NO RELIEF Carafate (Sucralfate) 1 Gm Tab 1 Gm PO BID On empty stomach Eliquis (Apixaban) 5 Mg Tab 5 Mg PO BID Albuterol Neb (Albuterol Sulfate) 2.5 Mg/0.5 Ml Neb 2.5 Mg NEB Q6HR NEB PRN Note: The Albuterol Sulfate Inhalation Solution is concentrated and must be diluted. Read complete instructions carefully before using. Proventil Hfa 6.7 GM Inh (Albuterol Sulfate) 90 Mcg/Act Aer 2 Puff INH Q4-6H PRN Novolin N Inj (Insulin Human NPH) 100 Unit/Ml Inj 100 Units SQ BID Gabapentin 600 Mg Tab 600 Mg PO BID Atorvastatin (Atorvastatin Calcium) 10 Mg Tab 10 Mg PO HS Glimepiride 1 Mg Tab 1 Mg PO DAILY Take with breakfast or first main meal Amlodipine (Amlodipine Besylate) 5 Mg Tab 5 Mg PO DAILY Review of Systems Except as stated in HPI: all other systems reviewed are Neg General / Constitutional: Positive: Fever (subjective), Chills (subjective) Eyes: No: Visual changes HENT: No: Headaches Cardiovascular: No: Chest Pain or Discomfort Respiratory: Positive: Shortness of Breath Gastrointestinal: Positive: Abdominal Pain (intermittent), No: Nausea, Vomiting , Diarrhea Genitourinary: No: Dysuria, Decreased Urinary Output Musculoskeletal: No: Pain Skin: No Rash Neurologic: No: Weakness, Dizziness, Syncope Psychiatric: No: Anxiety Hematologic/Lymphatic: No: Easy Bruising Physical Exam Narrative GENERAL: Well-developed morbidly obese male in no acute distress no respiratory distress; GCS 15 SKIN: Warm and dry. HEAD: Normocephalic. EYES: No scleral icterus. No injection or drainage. NECK: Supple, trachea midline. No JVD or lymphadenopathy. CARDIOVASCULAR: Regular rate and rhythm without murmurs, gallops, or rubs. RESPIRATORY: Breath sounds equal bilaterally. No accessory muscle use. GASTROINTESTINAL: Abdomen soft, mild right lower quadrant tenderness to palpation although exam somewhat limited due to marked abdominal girth, nondistended. Rectal exam: Normal sphincter tone no fissure or prolapsed hemorrhoid brown mucus on exam glove is positive for occult blood. MUSCULOSKELETAL: No cyanosis, or edema. BACK: Nontender without obvious deformity. No CVA tenderness. Data Data Last Documented VS Vital Signs Date Time Temp Pulse Resp B/P (MAP) Pulse Ox O2 Delivery O2 Flow Rate FiO2 06/26/17 20:28 73 20 97 Nasal Cannula 2.00 06/26/17 20:15 151/48 (82) 06/26/17 19:01 98.3 Orders Orders Complete Blood Count With Diff (06/26/17 19:32) Comprehensive Metabolic Panel (06/26/17 19:32) Lipase (06/26/17 19:32) Lactic Acid (06/26/17 19:32) Prothrombin Time / Inr (Pt) (06/26/17 19:32) Act Partial Throm Time (Ptt) (06/26/17 19:32) Urinalysis - C+S If Indicated (06/26/17 19:32) Ct Abd/Pel W Iv Contrast(Rout) (06/26/17 19:32) Iv Access Insert/Monitor (06/26/17 19:32) Ecg Monitoring (06/26/17 19:32) Oximetry (06/26/17 19:32) Sodium Chloride 0.9% Flush (Ns Flush) (06/26/17 19:45) Electrocardiogram (06/26/17 19:32) Chest, Single Ap (06/26/17 19:32) Troponin I (06/26/17 19:32) Type And Screen (06/26/17 21:14) Sodium Chloride 0.9% Flush (Ns Flush) (06/26/17 21:30) Sodium Chloride 0.9... W/Pantoprazole In (06/26/17 21:21) Sodium Chloride 0.9... W/Pantoprazole In (06/26/17 21:21) Iohexol 350 Inj (Omnipaque 350 Inj) (06/26/17 21:28) Labs Laboratory Tests Test 06/26/17 20:10 White Blood Count 12.3 TH/MM3 Red Blood Count 4.03 MIL/MM3 Hemoglobin 7.5 GM/DL Hematocrit 25.2 % Mean Corpuscular Volume 62.6 FL Mean Corpuscular Hemoglobin 18.7 PG Mean Corpuscular Hemoglobin Concent 30.0 % Red Cell Distribution Width 15.6 % Platelet Count 302 TH/MM3 Mean Platelet Volume 7.7 FL Neutrophils (%) (Auto) 67.6 % Lymphocytes (%) (Auto) 22.3 % Monocytes (%) (Auto) 7.3 % Eosinophils (%) (Auto) 2.3 % Basophils (%) (Auto) 0.5 % Neutrophils # (Auto) 8.3 TH/MM3 Lymphocytes # (Auto) 2.7 TH/MM3 Monocytes # (Auto) 0.9 TH/MM3 Eosinophils # (Auto) 0.3 TH/MM3 Basophils # (Auto) 0.1 TH/MM3 CBC Comment AUTO DIFF Differential Comment AUTO DIFF CONFIRMED Ovalocytes 1+ Prothrombin Time 10.8 SEC Prothromb Time International Ratio 1.0 RATIO Activated Partial Thromboplast Time 23.1 SEC Urine Color YELLOW Urine Turbidity CLEAR Urine pH 6.0 Urine Specific [place] 1.020 Urine Protein NEG mg/dL Urine Glucose (UA) 500 mg/dL Urine Ketones NEG mg/dL Urine Occult Blood NEG Urine Nitrite NEG Urine Bilirubin NEG Urine Leukocyte Esterase NEG Urine Squamous Epithelial Cells 0-5 /hpf Microscopic Urinalysis Comment CULT NOT INDICATED Blood Urea Nitrogen 17 MG/DL Creatinine 1.20 MG/DL Random Glucose 283 MG/DL Total Protein 6.9 GM/DL Albumin 3.4 GM/DL Calcium Level 8.3 MG/DL Alkaline Phosphatase 77 U/L Aspartate Amino Transf (AST/SGOT) 10 U/L Alanine Aminotransferase (ALT/SGPT) 25 U/L Total Bilirubin 0.4 MG/DL Sodium Level 134 MEQ/L Potassium Level 3.6 MEQ/L Chloride Level 98 MEQ/L Carbon Dioxide Level 26.1 MEQ/L Anion Gap 10 MEQ/L Estimat Glomerular Filtration Rate 61 ML/MIN Lactic Acid Level 3.8 mmol/L Troponin I 0.05 NG/ML Lipase 160 U/L MDM Medical Decision Making Medical Screen Exam Complete: Yes Emergency Medical Condition: Yes Medical Record Reviewed: Yes Interpretation(s) CT abd/pel: CONCLUSION: 1. No definite acute abnormality is seen. 2. Hepatic steatosis. 3. Status post prostatectomy. 4. Focal areas of sclerosis in the pelvic at the right pubic bone and left iliac bone. These were clearly present in 2014 and are unchanged. The lack of change is encouraging for a less aggressive process. 5. Small hyperdensities in the lateral right mid kidney likely related to cysts. One of these was clearly present on the prior exam. It is felt these could be followed. 6. Scattered colonic diverticula without inflammatory change. Priyank Rosa MD on June 26, 2017 at 22:30 CBC & BMP Diagram 06/26/17 20:10 Total Protein 6.9, Albumin 3.4, Calcium Level 8.3 L, Alkaline Phosphatase 77, Aspartate Amino Transf (AST/SGOT) 10 L, Alanine Aminotransferase (ALT/SGPT) 25, Total Bilirubin 0.4 Vital Signs Date Time Temp Pulse Resp B/P (MAP) Pulse Ox O2 Delivery O2 Flow Rate FiO2 06/26/17 20:28 73 20 97 Nasal Cannula 2.00 06/26/17 20:15 73 20 151/48 (82) 97 Nasal Cannula 2.00 06/26/17 19:01 98.3 77 20 155/72 (99) 99 trop: 0.05, not elevated Differential Diagnosis Anemia, GI bleed, diverticulitis, colitis Narrative Course IV access obtained patient placed on clamshell operator specimens collected and sent for resulting EKG performed which is sinus rhythm no acute injury pattern change noted @ 9:[address] given update Sepsis Criteria SIRS Criteria (2 or more): WBC > 51946, < 4000 or > 10% bands Severe Sepsis (+one): Lactate >2 Maureen Koch MD Jun 26, 2017 20:20
[2017-06-26 20:27] LABS: BLOOD, URINE NEG (NEG); GLUCOSE,URINE 500 mg/dL (NEG); KETONE, URINE NEG (NEG); NITRITE,URINE NEG (NEG)
[2017-06-26 20:37] LABS: CHLORIDE 98 MEQ/L (98-107); POTASSIUM 3.6 MEQ/L (3.5-5.1); SODIUM (NA) 134 MEQ/L (136-145)
[2017-06-26 20:40] LABS: COMMENT (UR) CULT NOT INDICATED; CULTURE IF INDICATED CULT NOT INDICATED; SQUAMOUS EPITHELIAL CELL URINE 0-5 /hpf (0-5); URINE COLOR YELLOW (YELLW/STRAW)
[2017-06-26 20:42] LABS: ANION GAP 10 MEQ/L (5-15); BICARBONATE 26.1 MEQ/L (21.0-32.0); BLOOD UREA NITROGEN 17 MG/DL (7-18)
[2017-06-26 20:44] LABS: ALT (GPT) 25 U/L (12-78); APTT (PATIENT) 23.1 SEC (24.3-30.1); AST (GOT) 10 U/L (15-37); PROTHROMBIN TIME - PATIENT 10.8 SEC (9.8-11.6)
[2017-06-26 20:45] LABS: GLOMERULAR FILTRATION RATE 61 ML/MIN (>89)
[2017-06-26 20:46] LABS: TOTAL BILIRUBIN ADULT 0.4 MG/DL (0.2-1.0)
[2017-06-26 20:47] LABS: ALKALINE PHOSPHATASE 77 U/L (45-117)
[2017-06-26] MEDS ORDERED: ISOS20TA PO (20:54)
[2017-06-26] MEDS ORDERED: DULO1CAP3 PO (20:54)
[2017-06-26] MEDS ORDERED: METO-426 PO (20:54)
[2017-06-26] MEDS ORDERED: LOSA100T2 PO (20:54)
[2017-06-26] MEDS ORDERED: COQ130CA PO (20:54)
[2017-06-26 20:59] LABS: AUTOMATED NEUTROPHIL # 8.3 TH/MM3 (1.8-7.7); BASOPHIL # 0.1 TH/MM3 (0-0.2); BASOPHIL % 0.5 % (0.0-2.0); EOSINOPHIL # 0.3 TH/MM3 (0-0.4); EOSINOPHIL % 2.3 % (0.0-4.0); HEMATOCRIT 25.2 % (39.0-51.0); HEMO FLAGS AUTO DIFF; LYMPH % 22.3 % (9.0-44.0); LYMPHOCYTE # 2.7 TH/MM3 (1.0-4.8); MEAN CELL VOLUME 62.6 FL (80.0-100.0); MEAN CORPUSCULAR HEMOGLOBIN 18.7 PG (27.0-34.0); MONO % 7.3 % (0.0-8.0); NEUT % 67.6 % (16.0-70.0); PLATELET COUNT 302 TH/MM3 (150-450); RED BLOOD COUNT 4.03 MIL/MM3 (4.50-5.90); RED CELL DISTRIBUTION WIDTH 15.6 % (11.6-17.2); WHITE BLOOD COUNT 12.3 TH/MM3 (4.0-11.0)
[2017-06-26 21:00] VITALS: BP 142/44; PULSE 74; RESP 20; O2SAT 98
--- NOTE | 2017-06-26 21:18 | RADRPT ---
EXAM DATE/TIME: 06/26/2017 20:17 [facility] COMPARISON: CHEST SINGLE AP, November 01, 2016, 12:32. INDICATIONS : Short of breath. MEDICAL HISTORY : Congestive heart failure. Myocardial infarction. Hypertension. AFib, CAD SURGICAL HISTORY : Coronary artery stent. Cardiac catheterization. Loop recorder. ENCOUNTER: Initial ACUITY: 1 day PAIN SCORE: 0/10 LOCATION: Bilateral chest FINDINGS: The heart size is borderline enlarged. There is a loop recorder in place. The lungs appear grossly cl ear. CONCLUSION: Borderline cardiomegaly. Priyank Rosa MD on June 26, 2017 at 21:16 Board Certified Radiologist. This report was verified electronically.
[2017-06-26] MEDS ORDERED: PANTOPRAZOLE INJ 80 MG in SODIUM CHLORIDE 0.9% INJ 35 ML IV ONE (21:21)
[2017-06-26 21:27] LABS: OVALOCYTES 1+ (NORMAL); SCAN/DIFF AUTO DIFF CONFIRMED
[2017-06-26] MEDS ORDERED: IOHEXOL 350 MG/ML 10 ML VIAL (for RAD DIAG) IVCONTRAST ONE (21:28)
[2017-06-26] MEDS ORDERED: SODIUM CHLORIDE 0.9% FLUSH 10 ML FLUSH IVF PRN ×2 (21:30→23:30)
[2017-06-26] MEDS: PANTOPRAZOLE INJ 80 MG in SODIUM CHLORIDE 0.9% INJ 100 ML IV SCH (21:50)
[2017-06-26 22:00] VITALS: BP 146/42; PULSE 69; RESP 20; O2SAT 98
--- NOTE | 2017-06-26 22:52 | RADRPT ---
EXAM DATE/TIME: 06/26/2017 21:12 [facility] COMPARISON: CT ABDOMEN & PELVIS W CONTRAST, January 26, 2014, 23:40. INDICATIONS : Abdominal pain. Abnormal labs. IV CONTRAST: 75 cc Omnipaque 350 (iohexol) IV ORAL CONTRAST: No oral contrast ingested. RADIATION DOSE: 22.38 CTDIvol (mGy) ; Patient body habitus MEDICAL HISTORY : Carcinoma, colon. Pancreatitis. Carcinoma, prostate. Carcinoma, breast. Hiatal hernia. Gastroesophageal reflux disease. Diverticulitis. Diabetes. Cardiovascular disease. SURGICAL HISTORY : Colon resection. Appendectomy. Prostatectomy. Cholecystectomy. Lumbar laminec tay. ENCOUNTER: Initial ACUITY: 4 - 6 days PAIN SCALE: 6/10 LOCATION: Upper quadrant lower quadrant TECHNIQUE: Volumetric scanning of the abdomen and pelvis was performed. Using automated exposure control and adjustment of the mA and/or kV according to patient size, radiation dose was kept as low as reasonably achievable to obtain optimal diagnostic quality images. DICOM format image data is av ailable electronically for review and comparison. FINDINGS: There is decreased attenuation to the liver consistent with a fatty steatosis. No foca l hepatic lesions are seen. The patient is status post cholecystectomy. The spleen, pancreas, and a drenal glands are normal. There are two hyperdensities seen in the lateral right mid kidney measurin g 1.4 and 1.0 cm. The 1.4 cm lesion was clearly present previously and likely represents a cyst. The faint 1.0 cm mass is not clearly seen on the prior exam. It is too small to further characterize on this CT examination. It is likely that given its size it could be followed. No hydronephrosis is s een on either side. Scattered atherosclerotic calcifications are seen at the aorta. No aneurysm is seen. There are scattered colonic diverticula. Significant inflammatory change is not seen. Clips are seen in the pelvis presumably from prior prostatectomy. There is postsurgical change with s urgical hardware seen in the lower lumbar spine. There is a 1.4 cm area of focal sclerosis at the ri ght medial pubic bone. This was present previously and appears unchanged. There are some tiny focal sclerotic areas seen at the inferior left ilium which were also present on the prior study from 2013 . The lung bases are clear. CONCLUSION: 1. No definite acute abnormality is seen. 2. Hepatic steatosis. 3. Status post prostatectomy. 4. Focal areas of sclerosis in the pelvic at the right pubic bone and left iliac bone. These were cl early present in 2013 and are unchanged. The lack of change is encouraging for a less aggressive pro cess. 5. Small hyperdensities in the lateral right mid kidney likely related to cysts. One of these was cl early present on the prior exam. It is felt these could be followed. 6. Scattered colonic diverticula without inflammatory change. Priyank Rosa MD on June 26, 2017 at 22:30 Board Certified Radiologist. This report was verified electronically.
[2017-06-26] MEDS ORDERED: SODIUM CHLOR 0.9% 250 ML INJ 250 ML IV ONE (23:00)
[2017-06-26 23:30] VITALS: BP 131/47; PULSE 71; RESP 20; O2SAT 95
[2017-06-26] MEDS ORDERED: NALOXONE HCL 0.4 MG/ML AMP IV PUSH PRN (23:30)
[2017-06-26] MEDS ORDERED: DEXTROSE 50% IN WATER 50 ML VIAL(D50) IV PUSH PRN (23:30)
[2017-06-26] MEDS ORDERED: GLUCAGON 1 MG/ML VIAL IM PRN (23:30)
[2017-06-27] VITALS (10 sets, daily range): BP systolic 103–143; BP diastolic 53–78; PULSE 69–96; RESP 17–20; TEMP 97.7–98.7; O2SAT 96–98
[2017-06-27] MEDS ORDERED: ONDANSETRON HCL 4 MG/2 ML VIAL IV PUSH ONE
[2017-06-27] MEDS ORDERED: HYDROmorphone HCL PF 1 MG/ML VIAL IV PUSH ONE
[2017-06-27] MEDS: SODIUM CHLORIDE 0.9% FLUSH 10 ML FLUSH IV FLUSH SCH ×2 (00:05→21:57)
[2017-06-27] MEDS: PANTOPRAZOLE INJ 80 MG in SODIUM CHLORIDE 0.9% INJ 100 ML IV SCH (06:30)
[2017-06-27 06:54] LABS: BASOPHIL # 0.1 TH/MM3 (0-0.2); BASOPHIL % 0.8 % (0.0-2.0); EOSINOPHIL # 0.3 TH/MM3 (0-0.4); EOSINOPHIL % 2.5 % (0.0-4.0); HEMATOCRIT 27.6 % (39.0-51.0); LYMPH % 25.6 % (9.0-44.0); LYMPHOCYTE # 2.8 TH/MM3 (1.0-4.8); MEAN CELL VOLUME 66.1 FL (80.0-100.0); MEAN CORPUSCULAR HEMOGLOBIN 19.9 PG (27.0-34.0); MONO % 6.9 % (0.0-8.0); NEUT % 64.2 % (16.0-70.0); PLATELET COUNT 237 TH/MM3 (150-450); RED BLOOD COUNT 4.17 MIL/MM3 (4.50-5.90); RED CELL DISTRIBUTION WIDTH 17.6 % (11.6-17.2)
[2017-06-27 06:55] LABS: HEMO FLAGS AUTO DIFF
[2017-06-27 07:02] LABS: POTASSIUM 3.8 MEQ/L (3.5-5.1)
[2017-06-27 07:06] LABS: BICARBONATE 28.3 MEQ/L (21.0-32.0)
[2017-06-27 07:45] LABS: SCAN/DIFF AUTO DIFF CONFIRMED
[2017-06-27] MEDS ORDERED: SODIUM CHLORIDE 0.9% FLUSH 10 ML FLUSH IV FLUSH SCH (09:00)
--- NOTE | 2017-06-27 10:20 | EKG ---
Date Performed: 06/26/2017 Time Performed: 20:21:21 PTAGE: 66 years EKG: Sinus rhythm ABNORMAL ECG PREVIOUS TRACING : 11/01/2016 12.12 DOCTOR: Joaquin [place] Interpretating Date/Time 06/27/2017 10:19:15
--- NOTE | 2017-06-27 11:40 | PD.CONS ---
HPI History of Present Illness This is a 66 year old male who recently began to complain of worsening shortness of breath and was found to be anemic and so he was advised to come into the hospital for further evaluation and treatment the patient is on Eliquis for fibrillation he denies any melena or hematochezia hematemesis coffee-ground emesis he doesn't recall being told he was anemic in the past he does have some shortness of breath but no chest pain no lightheadedness or dizziness no blurry vision denies any change in appetite or weight loss PFSH Past Medical History Arthritis anemia asthma atrial fibrillation dyslipidemia CHF COPD CVA CAD diabetes diminished hearing obesity fibromyalgia hypertension prostate cancer diverticulitis colon cancer pancreatitis pneumonia hypothyroidism Past Surgical History cardiac catheterization with stent placement and loop recorder prostatectomy endoscopy colonoscopy polypectomy Coded Allergies: adhesive (Unverified Allergy, Severe, Rash, 06/26/17) atorvastatin (Unverified Allergy, Severe, MUSCLE WEAKNESS, 06/26/17) pravastatin (Unverified Allergy, Severe, MUSCLE WEAKNESS, 06/26/17) rosuvastatin (Unverified Allergy, Severe, MUSCLE WEAKNESS, 06/26/17) morphine (Unverified Adverse Reaction, Severe, BECOMES VERY AGGRESSIVE, ) Medications Coq10 (Coenzyme Q10 (Ubidecarenone)) 30 Mg Cap 30 Mg PO DAILY Isosorbide Mononitrate 20 Mg Tab 30 Mg PO BID Take 2 doses [address]. [address] (Duloxetine HCl) 60 Mg Capdr 60 Mg PO DAILY Metoprolol Tartrate 75 Mg Tab 75 Mg PO BID Losartan-Hydrochlorothiazide 100-25 Mg Tab 1 Tab PO DAILY Duloxetine DR (Duloxetine HCl) 60 Mg Capdr 60 Mg PO DAILY Pantoprazole (Pantoprazole Sodium) 40 Mg Tab 40 Mg PO BID Oxycodone (Oxycodone HCl) 15 Mg Tab 15 Mg PO Q8H PRN Nitroglycerin SL (Nitroglycerin) 0.4 Mg Subl 0.4 Mg SL DIRECTED PRN ONE TABLET UNDER THE TONGUE NEEDED FOR CHEST PAIN, MAY REPEAT EVERY FIVE MINUTES FOR A TOTAL OF 3 DOSES OR CALL 911 IF NO RELIEF Carafate (Sucralfate) 1 Gm Tab 1 Gm PO BID On empty stomach Eliquis (Apixaban) 5 Mg Tab 5 Mg PO BID Albuterol Neb (Albuterol Sulfate) 2.5 Mg/0.5 Ml Neb 2.5 Mg NEB Q6HR NEB PRN Note: The Albuterol Sulfate Inhalation Solution is concentrated and must be diluted. Read complete instructions carefully before using. Proventil Hfa 6.7 GM Inh (Albuterol Sulfate) 90 Mcg/Act Aer 2 Puff INH Q4-6H PRN Novolin N Inj (Insulin Human NPH) 100 Unit/Ml Inj 100 Units SQ BID Gabapentin 600 Mg Tab 600 Mg PO BID Atorvastatin (Atorvastatin Calcium) 10 Mg Tab 10 Mg PO HS Glimepiride 1 Mg Tab 1 Mg PO DAILY Take with breakfast or first main meal Amlodipine (Amlodipine Besylate) 5 Mg Tab 5 Mg PO DAILY Family History Noncontributory Social History Admits to alcohol use but no tobacco use Review of Systems ROS Review of systems Patient denies any headache dizziness blurry vision, denies any chest pain cough fever chills, he does report shortness of breath Denies any palpitations or fatigue denies any polyuria dysuria hematuria, denies any numbness tingling or weakness, denies any skin rash pruritus or jaundice, denies any easy bruising or bleeding tendency, denies any recent change in mood GI Exam Vitals I&O Vital Signs Date Time Temp Pulse Resp B/P (MAP) Pulse Ox O2 Delivery O2 Flow Rate FiO2 06/27/17 08:00 98.0 69 17 139/61 (87) 98 06/27/17 07:30 97 Nasal Cannula 2.00 06/27/17 05:11 98.3 75 20 138/72 97 06/27/17 05:11 97 Nasal Cannula 2.00 06/27/17 02:21 98.1 76 20 143/71 98 06/27/17 02:05 98.2 71 20 116/53 98 06/27/17 00:50 98.7 72 2 128/58 (81) 97 Nasal Cannula 2.00 06/27/17 00:00 98.2 71 20 116/53 (74) 98 06/26/17 23:30 71 20 131/47 (75) 95 Nasal Cannula 2.00 06/26/17 22:00 69 20 146/42 (76) 98 Nasal Cannula 2.00 06/26/17 21:00 74 20 142/44 (76) 98 Nasal Cannula 2.00 06/26/17 20:28 73 20 97 Nasal Cannula 2.00 06/26/17 20:15 73 20 151/48 (82) 97 Nasal Cannula 2.00 06/26/17 19:01 98.3 77 20 155/72 (99) 99 I/O 06/26/17 06/26/17 06/26/17 06/27/17 06/27/17 06/27/17 07:00 15:00 23:00 07:00 15:00 23:00 Intake Total 100 ml 570 ml Output Total 400 ml Balance 100 ml 170 ml Intake Oral 0 ml IV Total 100 ml 150 ml Packed Cells 400 ml Blood Product IV Normal Saline Flush 20 ml Output Urine Total 400 ml Imaging Last Impressions Chest X-Ray 06/26/171931 Signed Impressions: Service Date/Time: Monday, June 26, 2017 20:17 - CONCLUSION: Borderline cardiomegaly. Priyank Rosa MD Abdomen/Pelvis CT 06/26/171931 Signed Impressions: Service Date/Time: Monday, June 26, 2017 21:12 - CONCLUSION: 1. No definite acute abnormality is seen. 2. Hepatic steatosis. 3. Status post prostatectomy. 4. Focal areas of sclerosis in the pelvic at the right pubic bone and left iliac bone. These were clearly present in 2014 and are unchanged. The lack of change is encouraging for a less aggressive process. 5. Small hyperdensities in the lateral right mid kidney likely related to cysts. One of these was clearly present on the prior exam. It is felt these could be followed. 6. Scattered colonic diverticula without inflammatory change. Priyank Rosa MD Laboratory Test 06/26/17 20:10 06/27/17 06:25 White Blood Count 12.3 TH/MM3 11.0 TH/MM3 Red Blood Count 4.03 MIL/MM3 4.17 MIL/MM3 Hemoglobin 7.5 GM/DL 8.3 GM/DL Hematocrit 25.2 % 27.6 % Mean Corpuscular Volume 62.6 FL 66.1 FL Mean Corpuscular Hemoglobin 18.7 PG 19.9 PG Mean Corpuscular Hemoglobin Concent 30.0 % 30.0 % Red Cell Distribution Width 15.6 % 17.6 % Platelet Count 302 TH/MM3 237 TH/MM3 Mean Platelet Volume 7.7 FL 7.9 FL Neutrophils (%) (Auto) 67.6 % 64.2 % Lymphocytes (%) (Auto) 22.3 % 25.6 % Monocytes (%) (Auto) 7.3 % 6.9 % Eosinophils (%) (Auto) 2.3 % 2.5 % Basophils (%) (Auto) 0.5 % 0.8 % Neutrophils # (Auto) 8.3 TH/MM3 7.0 TH/MM3 Lymphocytes # (Auto) 2.7 TH/MM3 2.8 TH/MM3 Monocytes # (Auto) 0.9 TH/MM3 0.8 TH/MM3 Eosinophils # (Auto) 0.3 TH/MM3 0.3 TH/MM3 Basophils # (Auto) 0.1 TH/MM3 0.1 TH/MM3 CBC Comment AUTO DIFF AUTO DIFF Differential Comment AUTO DIFF CONFIRMED AUTO DIFF CONFIRMED Ovalocytes 1+ Prothrombin Time 10.8 SEC Prothromb Time International Ratio 1.0 RATIO Activated Partial Thromboplast Time 23.1 SEC Urine Color YELLOW Urine Turbidity CLEAR Urine pH 6.0 Urine Specific [place] 1.020 Urine Protein NEG mg/dL Urine Glucose (UA) 500 mg/dL Urine Ketones NEG mg/dL Urine Occult Blood NEG Urine Nitrite NEG Urine Bilirubin NEG Urine Leukocyte Esterase NEG Urine Squamous Epithelial Cells 0-5 /hpf Microscopic Urinalysis Comment CULT NOT INDICATED Blood Urea Nitrogen 17 MG/DL 20 MG/DL Creatinine 1.20 MG/DL 1.10 MG/DL Random Glucose 283 MG/DL 233 MG/DL Total Protein 6.9 GM/DL Albumin 3.4 GM/DL Calcium Level 8.3 MG/DL 8.4 MG/DL Alkaline Phosphatase 77 U/L Aspartate Amino Transf (AST/SGOT) 10 U/L Alanine Aminotransferase (ALT/SGPT) 25 U/L Total Bilirubin 0.4 MG/DL Sodium Level 134 MEQ/L 134 MEQ/L Potassium Level 3.6 MEQ/L 3.8 MEQ/L Chloride Level 98 MEQ/L 99 MEQ/L Carbon Dioxide Level 26.1 MEQ/L 28.3 MEQ/L Anion Gap 10 MEQ/L 7 MEQ/L Estimat Glomerular Filtration Rate 61 ML/MIN 67 ML/MIN Lactic Acid Level 3.8 mmol/L 2.4 mmol/L Troponin I 0.05 NG/ML Lipase 160 U/L Physical Examination HEENT: Pupils round and reactive to light; normocephalic; atraumatic; no jaundice. Throat is clear NECK: Neck is supple, no JVD, no lymphadenopathy. CHEST: Chest is clear to auscultation and percussion. CARDIAC: Irregularly irregular with no murmur gallop or rubs. ABDOMEN: Soft, nondistended, nontender; no hepatosplenomegaly; bowel sounds are present in all four quadrants. EXTREMITIES: No clubbing, cyanosis, or edema. SKIN: Normal; no rash; no jaundice. SKIFF OPERATOR: No focal deficits; alert and oriented times three. Assessment and Plan Plan Patient with profound anemia etiology unclear Patient had recent EGD and colonoscopy which were grossly unremarkable Patient is needing to be on Eliquis for atrial fibrillation Continue with current supportive care Monitor labs and transfuse as needed We will proceed with an EGD if unremarkable then we will need to obtain a small bowel follow-through in preparation for outpatient capsule endoscopy Lee Guardado MD Jun 27, 2017 11:40
[2017-06-27] MEDS ORDERED: MAGNESIUM CITRATE SOLN 300 ML BTL PO ONE ×2 (12:00→18:00)
[2017-06-27] MEDS ORDERED: LACTATED RINGER'S 1000 ML INJ 1,000 ML ONE (12:06)
[2017-06-27] MEDS ORDERED: PROPOFOL 200 MG/20 ML AMP IV ONE (12:33)
--- NOTE | 2017-06-27 12:36 | PD.PROCEDR ---
GI Procedure REFERRING PHYSICIAN Katie PEREIRA PERFORMED EGD with snare INDICATION FOR PROCEDURE Anemia of unclear etiology PROCEDURE: The procedure, risks and benefits were discussed with Mr. Fay and informed consent was obtained. Anesthesia sedated him with Diprivan. He was placed in the left lateral decubitus position. EGD: The Pentax videoscope was introduced through the oropharynx and advanced to the second portion of the duodenum under direct visualization. Retroflexion was performed in the stomach. FINDINGS: The esophagus this was normal The stomach there were 3 polypoid lesions in the antrum that were erythemic in possibly had erosions the 3 polypoid lesions were excised using hot snare technique and were retrieved for further evaluation otherwise gastric mucosa was unremarkable The duodenum this was unremarkable and within normal limits ESTIMATED BLOOD LOSS: None SPECIMENS REMOVED: Antral polypoid lesions COMPLICATIONS: None IMPRESSION: Antral polypoid lesions PLAN: Await biopsies Continue PPI Recommend small bowel follow-through Recommend outpatient capsule endoscopy Recommend blood transfusions as needed Continue with current supportive care monitor labs Lee Guardado MD Jun 27, 2017 12:36
[2017-06-27] MEDS ORDERED: RESP: ALBUTEROL 2.5 MG/3 ML NEB (SCH) ONE (12:45)
--- NOTE | 2017-06-27 13:08 | HHI.HP ---
[facility] Service [facility] Primary Care Physician Dalton Hurst MD Admission Diagnosis Anemia; gi bleed Diagnoses: Chief Complaint: Abnormal labs Travel History International Travel<30 Days: No Contact w/Intl Traveler <30 Da: No Traveled to Known Affected Are: No History of Present Illness This patient is a very pleasant 66-year-old gentleman with diabetes and coronary artery disease who had been quite sleepy lately. He saw his primary care provider took some outpatient labs and was found to be quite anemic. He was sent to the emergency room. He seemed well with 7.5 and the patient was admitted to the hospital after a Gastroccult did come back. Patient has on Eliquis for atrial fibrillation and in follow-up with his bureau chief Dr. Thompson. Patient is admitted for further evaluation. He did receive 1 unit packed red blood cells and felt more energetic. He denies any pain complaint. He is now seen post endoscopy and found to have minimal findings. A small bowel series is pending. Review of Systems Constitutional: DENIES: Diaphoretic episodes, Fatigue, Fever, Weight gain, Weight loss, Chills, Dizziness, Change in appetite, Night Sweats Endocrine: DENIES: Heat/cold intolerance, Polydipsia, Polyuria, Polyphagia Eyes: DENIES: Blurred vision, Eye pain Ears, nose, mouth, throat: DENIES: Tinnitus, Hearing loss, Vertigo, Nasal discharge, Oral lesions, Throat pain, Hoarseness, Ear Pain, Running Nose, Epistaxis, Sinus Pain, Toothache, Odynophagia Respiratory: DENIES: Apneas, Cough, Snoring, Wheezing, Hemoptysis, Sputum production, Shortness of breath Cardiovascular: DENIES: Chest pain, Palpitations, Syncope, Dyspnea on Exertion , PND, Lower Extremity Edema, Orthopnea, Claudication Gastrointestinal: DENIES: Abdominal pain, Black stools, Bloody stools, Constipation, Diarrhea, Nausea, Vomiting, Difficulty Swallowing, Anorexia Genitourinary: COMPLAINS OF: Sexual dysfunction (status post prostatectomy), DENIES: Urinary frequency, Urinary incontinence, Urgency, Hematuria, Dysuria, Nocturia, Penile Discharge, Testicular Pain, Testicular Swelling Musculoskeletal: COMPLAINS OF: Joint pain (back and neck), DENIES: Muscle aches , Stiffness, Joint Swelling, Back pain, Neck pain Integumentary: DENIES: Abnormal pigmentation, Nail changes, Pruritus, Rash Hematologic/lymphatic: DENIES: Bruising, Lymphadenopathy Immunologic/allergic: DENIES: Eczema, Urticaria Neurologic: DENIES: Abnormal gait, Headache, Localized weakness, Paresthesias, Seizures, Speech Problems, Tremor, Poor Balance Psychiatric: DENIES: Anxiety, Confusion, Mood changes, Depression, Hallucinations, Agitation, Suicidal Ideation, Homicidal Ideation, Delusions Except as stated in HPI: all other systems reviewed are Neg Past Family Social History Past Medical History Coronary disease Chronic back pain COPD Anemia Diabetes mellitus Past Surgical History cardiac catheterization with stent placement and loop recorder prostatectomy e Multiple back and neck surgeries, other orthopedic surgery Left patellar surgery Reported Medications Reviewed in the EMR Allergies: Coded Allergies: adhesive (Unverified Allergy, Severe, Rash, 06/26/17) atorvastatin (Unverified Allergy, Severe, MUSCLE WEAKNESS, 06/26/17) pravastatin (Unverified Allergy, Severe, MUSCLE WEAKNESS, 06/26/17) rosuvastatin (Unverified Allergy, Severe, MUSCLE WEAKNESS, 06/26/17) morphine (Unverified Adverse Reaction, Severe, BECOMES VERY AGGRESSIVE, ) Active Ordered Medications Reviewed in the EMR Family History Father from lung cancer at 56, mother at 70 Social History 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, no tobacco, occasional alcohol, lives with his girlfriend Physical Exam Vital Signs Vital Signs Date Time Temp Pulse Resp B/P (MAP) Pulse Ox O2 Delivery O2 Flow Rate FiO2 06/27/17 11:32 98.0 73 20 127/62 (83) 98 06/27/17 08:00 98.0 69 17 139/61 (87) 98 06/27/17 07:30 97 Nasal Cannula 2.00 06/27/17 05:11 98.3 75 20 138/72 97 06/27/17 05:11 97 Nasal Cannula 2.00 06/27/17 02:21 98.1 76 20 143/71 98 06/27/17 02:05 98.2 71 20 116/53 98 06/27/17 00:50 98.7 72 2 128/58 (81) 97 Nasal Cannula 2.00 06/27/17 00:00 98.2 71 20 116/53 (74) 98 06/26/17 23:30 71 20 131/47 (75) 95 Nasal Cannula 2.00 06/26/17 22:00 69 20 146/42 (76) 98 Nasal Cannula 2.00 06/26/17 21:00 74 20 142/44 (76) 98 Nasal Cannula 2.00 06/26/17 20:28 73 20 97 Nasal Cannula 2.00 06/26/17 20:15 73 20 151/48 (82) 97 Nasal Cannula 2.00 06/26/17 19:01 98.3 77 20 155/72 (99) 99 Physical Exam GENERAL: This is a well-nourished, well-developed patient, in no apparent distress. SKIN: No rashes, ecchymoses or lesions. Cool and dry. HEAD: Atraumatic. Normocephalic. No temporal or scalp tenderness. EYES: Pupils equal round and reactive. Extraocular motions intact. No scleral icterus. No injection or drainage. ENT: Nose without bleeding, purulent drainage or septal hematoma. Throat without erythema, tonsillar hypertrophy or exudate. Uvula midline. Airway patent. NECK: Trachea midline. No JVD or lymphadenopathy. Supple, nontender, no meningeal signs. CARDIOVASCULAR: Regular rate and rhythm without murmurs, gallops, or rubs. RESPIRATORY: Clear to auscultation. Breath sounds equal bilaterally. No wheezes , rales, or rhonchi. GASTROINTESTINAL: Abdomen soft, non-tender, nondistended. No hepato-splenomegaly , or palpable masses. No guarding. MUSCULOSKELETAL: Extremities without clubbing, cyanosis, or edema. No joint tenderness, effusion, or edema noted. No calf tenderness. Negative Homans sign bilaterally. NEUROLOGICAL: Awake and alert. Cranial nerves II through XII intact. Motor and sensory grossly within normal limits. Five out of 5 muscle strength in all muscle groups. Normal speech. Laboratory Laboratory Tests Test 06/26/17 20:10 06/27/17 06:25 White Blood Count 12.3 11.0 Red Blood Count 4.03 4.17 Hemoglobin 7.5 8.3 Hematocrit 25.2 27.6 Mean Corpuscular Volume 62.6 66.1 Mean Corpuscular Hemoglobin 18.7 19.9 Mean Corpuscular Hemoglobin Concent 30.0 30.0 Red Cell Distribution Width 15.6 17.6 Platelet Count 302 237 Mean Platelet Volume 7.7 7.9 Neutrophils (%) (Auto) 67.6 64.2 Lymphocytes (%) (Auto) 22.3 25.6 Monocytes (%) (Auto) 7.3 6.9 Eosinophils (%) (Auto) 2.3 2.5 Basophils (%) (Auto) 0.5 0.8 Neutrophils # (Auto) 8.3 7.0 Lymphocytes # (Auto) 2.7 2.8 Monocytes # (Auto) 0.9 0.8 Eosinophils # (Auto) 0.3 0.3 Basophils # (Auto) 0.1 0.1 CBC Comment AUTO DIFF AUTO DIFF Differential Comment AUTO DIFF CONFIRMED AUTO DIFF CONFIRMED Ovalocytes 1+ Prothrombin Time 10.8 Prothromb Time International Ratio 1.0 Activated Partial Thromboplast Time 23.1 Urine Color YELLOW Urine Turbidity CLEAR Urine pH 6.0 Urine Specific [place] 1.020 Urine Protein NEG Urine Glucose (UA) 500 Urine Ketones NEG Urine Occult Blood NEG Urine Nitrite NEG Urine Bilirubin NEG Urine Leukocyte Esterase NEG Urine Squamous Epithelial Cells 0-5 Microscopic Urinalysis Comment CULT NOT INDICATED Blood Urea Nitrogen 17 20 Creatinine 1.20 1.10 Random Glucose 283 233 Total Protein 6.9 Albumin 3.4 Calcium Level 8.3 8.4 Alkaline Phosphatase 77 Aspartate Amino Transf (AST/SGOT) 10 Alanine Aminotransferase (ALT/SGPT) 25 Total Bilirubin 0.4 Sodium Level 134 134 Potassium Level 3.6 3.8 Chloride Level 98 99 Carbon Dioxide Level 26.1 28.3 Anion Gap 10 7 Estimat Glomerular Filtration Rate 61 67 Lactic Acid Level 3.8 2.4 Troponin I 0.05 Lipase 160 Result Diagram: 06/27/1725 06/27/17624 Imaging Last Impressions Chest X-Ray 06/26/171931 Signed Impressions: Service Date/Time: Monday, June 26, 2017 20:17 - CONCLUSION: Borderline cardiomegaly. Priyank Rosa MD Abdomen/Pelvis CT 06/26/171931 Signed Impressions: Service Date/Time: Monday, June 26, 2017 21:12 - CONCLUSION: 1. No definite acute abnormality is seen. 2. Hepatic steatosis. 3. Status post prostatectomy. 4. Focal areas of sclerosis in the pelvic at the right pubic bone and left iliac bone. These were clearly present in 2014 and are unchanged. The lack of change is encouraging for a less aggressive process. 5. Small hyperdensities in the lateral right mid kidney likely related to cysts. One of these was clearly present on the prior exam. It is felt these could be followed. 6. Scattered colonic diverticula without inflammatory change. Priyank Rosa MD [place] VTE Risk Assessment Caprini VTE Risk Assessment: Mod/High Risk (score >= 2) Caprini Risk Assessment Model Point Value = 1 Point Value = 2 Point Value = 3 Point Value = 5 Age 41-60 Minor surgery BMI > 25 kg/m2 Swollen legs Varicose veins or History of unexplained or recurrent spontaneous Oral contraceptives or hormone replacement Sepsis (< 1 month) Serious lung disease, including pneumonia (< 1 month) Abnormal pulmonary function Acute myocardial infarction Congestive heart failure (< 1 month) History of inflammatory bowel disease Medical patient at bed rest Age 61-74 Arthroscopic surgery Major open surgery (> 45 min) Laparoscopic surgery (> 45 min) Malignancy Confined to bed (> 72 hours) Immobilizing plaster cast Central venous access Age >= 75 History of VTE Family history of VTE Factor V Leiden Prothrombin [id number] Lupus anticoagulant Anticardiolipin antibodies Elevated serum homocysteine Heparin-induced thrombocytopenia Other congenital or acquired thrombophilia Stroke (< 1 month) Elective arthroplasty Hip, pelvis, or leg fracture Acute spinal cord injury (< 1 month) Prophylaxis Regimen Total Risk Factor Score Risk Level Prophylaxis Regimen 0-1 Low Early ambulation 2 Moderate Order ONE of the following: *Sequential Compression Device (SCD) *Heparin 5000 units SQ BID 3-4 Higher Order ONE of the following medications: *Heparin 5000 units SQ TID *Enoxaparin/Lovenox 40 mg SQ daily (WT < 150 kg, CrCl > 30 mL/min) *Enoxaparin/Lovenox 30 mg SQ daily (WT < 150 kg, CrCl > 10-29 mL/min) *Enoxaparin/Lovenox 30 mg SQ BID (WT < 150 kg, CrCl > 30 mL/min) AND/OR *Sequential Compression Device (SCD) 5 or more Highest Order ONE of the following medications: *Heparin 5000 units SQ TID (Preferred with Epidurals) *Enoxaparin/Lovenox 40 mg SQ daily (WT < 150 kg, CrCl > 30 mL/min) *Enoxaparin/Lovenox 30 mg SQ daily (WT < 150 kg, CrCl > 10-29 mL/min) *Enoxaparin/Lovenox 30 mg SQ BID (WT < 150 kg, CrCl > 30 mL/min) AND *Sequential Compression Device (SCD) Assessment and Plan Problem List: (1) Anemia ICD Code: D64.9 - Anemia, unspecified Plan: Symptomatic due to fatigue etiology and clear, status post endoscopy with unremarkable findings. Hemoglobin 7.5 and now 8.3 after 1 unit packed red blood cells. Patient does take Eliquis. Small bowel series pending. Patient has had previous evaluations in the past with minimal findings DC Protonix is no upper GI bleeding found (2) COPD (chronic obstructive pulmonary disease) ICD Code: J44.9 - Chronic obstructive pulmonary disease, unspecified Status: Acute (3) History of atrial fibrillation ICD Code: Z86.79 - History of atrial fibrillation Status: Acute (4) Diabetes ICD Code: E11.9 - Diabetes Status: Chronic Plan: Continue sliding scale for now as patient with minimal by mouth intake Jessica Garcia MD Jun 27, 2017 13:08
[2017-06-27] MEDS ORDERED: GLUCAGON 1 MG/ML VIAL OTHER PRN (13:15)
[2017-06-27] MEDS ORDERED: DEXTROSE 50% IN WATER 50 ML VIAL(D50) IV PUSH PRN (13:15)
[2017-06-27] MEDS ORDERED: NON-FORMULARY DRUG (Losartan-Hydrochlorothiazide 1 TAB) PO SCH (16:45)
[2017-06-27] MEDS: INSULIN ASPART SUPPLEMENTAL SCALE SQ SCH ×2 (17:00→21:00)
[2017-06-27] MEDS: amLODIPine BESYLATE 5 MG TAB PO SCH (17:13)
[2017-06-27] MEDS: HYDROCHLOROTHIAZIDE 25 MG TAB PO SCH (17:13)
[2017-06-27] MEDS: DULoxetine HCl DR 60 MG CAP PO SCH (17:13)
[2017-06-27] MEDS: LOSARTAN 50 MG TAB PO SCH (17:13)
[2017-06-27] MEDS: BISACODYL EC 5 MG TABEC PO SCH ×2 (17:38→21:56)
[2017-06-27] MEDS ORDERED: ALBUTEROL SULFATE 90 MCG/ACT HFA 8 GM INHALER INH PRN (18:00)
[2017-06-27] MEDS: ISOSORBIDE MONONITRATE 30 MG TAB PO SCH (21:56)
[2017-06-27] MEDS: GABAPENTIN 300 MG CAP PO SCH (21:57)
[2017-06-27] MEDS: ATORVASTATIN 10 MG TAB PO SCH (21:57)
[2017-06-27] MEDS ORDERED: guaiFENesin/CODEINE SYRUP 200 MG/20 MG/10 ML CUP PO ONE (22:30)
[2017-06-28] VITALS (16 sets, daily range): BP systolic 109–150; BP diastolic 58–100; PULSE 78–94; RESP 18–20; TEMP 96.7–98.4; O2SAT 92–98
[2017-06-28 06:30] LABS: HEMATOCRIT 27.2 % (39.0-51.0); MEAN CELL VOLUME 64.7 FL (80.0-100.0); MEAN CORPUSCULAR HEMOGLOBIN 19.1 PG (27.0-34.0); PLATELET COUNT 264 TH/MM3 (150-450); RED BLOOD COUNT 4.21 MIL/MM3 (4.50-5.90); RED CELL DISTRIBUTION WIDTH 16.7 % (11.6-17.2); WHITE BLOOD COUNT 14.3 TH/MM3 (4.0-11.0)
[2017-06-28 06:39] LABS: MEAN CORPUSCULAR HGB CONC 29.6 % (32.0-36.0); REVIEW FLAG FINAL
[2017-06-28] MEDS: SODIUM CHLORIDE 0.9% FLUSH 10 ML FLUSH IV FLUSH SCH ×2 (09:00→21:00)
[2017-06-28] MEDS: DULoxetine HCl DR 60 MG CAP PO SCH (09:01)
[2017-06-28] MEDS: LOSARTAN 50 MG TAB PO SCH (09:01)
[2017-06-28] MEDS: ISOSORBIDE MONONITRATE 30 MG TAB PO SCH ×2 (09:01→20:44)
[2017-06-28] MEDS: amLODIPine BESYLATE 5 MG TAB PO SCH (09:01)
[2017-06-28] MEDS: GABAPENTIN 300 MG CAP PO SCH ×2 (09:01→20:44)
[2017-06-28] MEDS: HYDROCHLOROTHIAZIDE 25 MG TAB PO SCH (09:01)
[2017-06-28] MEDS: INSULIN ASPART SUPPLEMENTAL SCALE SQ SCH ×4 (09:20→21:00)
--- NOTE | 2017-06-28 14:00 | RADRPT ---
EXAM DATE/TIME: 06/28/2017 09:32 [place] COMPARISON: No previous studies available for comparison. INDICATIONS : Anemia. Right abdomen pain. FLUORO TIME: 1.1 minutes IMAGE COUNT: 28 CONTRAST: Entero Vu 24% Barium Sulfate (24% w/v, 20% w/w) IMAGING TIME(S): 15 min, 30 min, 45 min, 1 hr, 1.5 hrs2 hr, MEDICAL HISTORY : Hypercholesterolemia. Thyroid disease. CVA. Myocardial infarction.CHF.CAD. A-fib.Hypertension.C OPD. Fibromyalgia.Asthma.Ulcer.Pancreatitis.Colon CA.Diverticulitis. Hiatial hernia. GERD.Prostate CA .Renal calculi.Diabetic. SURGICAL HISTORY : Colon resection. Appendectomy. Cholecystectomy. Cardiac ablation.Cervical fusion. Lumbar fusion. Card iac cath w/ stent placement. Left breast removed w/ lymph nodes.Hernia repair. Prostatectomy. ENCOUNTER: Subsequent ACUITY: 4 - 6 days PAIN SCORE: 7/10 LOCATION: Right abdomen. FINDINGS: The pulmonary weather strip mechanic film demonstrates a nonobstructive bowel gas pattern. The patient is status post cholecystectomy. There are postsurgical changes in the lumbar spine and pelvis. The stomach is grossly unremarkable. Examination of the small bowel demonstrates normal mucosal pattern involving the jejunum and ileum. There is no evidence of mass or obstruction. No intraluminal filling defects are identified. Small bowel transit time is normal at 180 minutes. Fluoroscopy of the abdomen and terminal ileum demonstra fany no abnormality. CONCLUSION: Unremarkable small bowel examination. Walter Torres MD on June 28, 2017 at 13:53 Board Certified Radiologist. This report was verified electronically.
[2017-06-28] MEDS ORDERED: SODIUM CHLOR 0.9% 250 ML INJ 250 ML IV ONE (14:15)
--- NOTE | 2017-06-28 14:17 | HHI.DCPOC ---
Discharge Care Plan Diagnosis: (1) Anemia Goals to Promote Your Health * To prevent worsening of your condition and complications * To maintain your health at the optimal level Directions to Meet Your Goals Take your medications as prescribed Follow your dietary instruction Follow activity as directed Keep your appointments as scheduled Take your immunizations and boosters as scheduled If your symptoms worsen call your PCP, if no PCP go to Urgent Care Center or Emergency Room Smoking is Dangerous to Your Health. Avoid second hand smoke Call the 24-hour hour crisis hotline for domestic abuse at Jessica Garcia MD Jun 28, 2017 14:16
--- NOTE | 2017-06-28 14:20 | HHI.DS ---
Discharge Summary Admission Date Jun 26, 2017 at 23:32 Discharge Date: Jun 28, 2017 Admitting Diagnosis Anemia; gi bleed (1) Anemia ICD Code: D64.9 - Anemia, unspecified (2) COPD (chronic obstructive pulmonary disease) ICD Code: J44.9 - Chronic obstructive pulmonary disease, unspecified Status: Acute (3) History of atrial fibrillation ICD Code: Z86.79 - History of atrial fibrillation Status: Acute (4) Diabetes ICD Code: E11.9 - Diabetes Status: Chronic Procedures egd Brief History - From Admission This patient is a very pleasant 66-year-old gentleman with diabetes and coronary artery disease who had been quite sleepy lately. He saw his primary care provider took some outpatient labs and was found to be quite anemic. He was sent to the emergency room. He seemed well with 7.5 and the patient was admitted to the hospital after a Gastroccult did come back. Patient has on Eliquis for atrial fibrillation and in follow-up with his renal social worker Dr. Thompson. Patient is admitted for further evaluation. He did receive 1 unit packed red blood cells and felt more energetic. He denies any pain complaint. He is now seen post endoscopy and found to have minimal findings. A small bowel series is pending. CBC/BMP: 06/28/17 0535 06/27/17 0625 Significant Findings Laboratory Tests Test 06/26/17 20:10 06/27/17 06:25 06/28/17 05:35 White Blood Count 12.3 TH/MM3 (4.0-11.0) 14.3 TH/MM3 (4.0-11.0) Red Blood Count 4.03 MIL/MM3 (4.50-5.90) 4.17 MIL/MM3 (4.50-5.90) 4.21 MIL/MM3 (4.50-5.90) Hemoglobin 7.5 GM/DL (13.0-17.0) 8.3 GM/DL (13.0-17.0) 8.1 GM/DL (13.0-17.0) Hematocrit 25.2 % (39.0-51.0) 27.6 % (39.0-51.0) 27.2 % (39.0-51.0) Mean Corpuscular Volume 62.6 FL (80.0-100.0) 66.1 FL (80.0-100.0) 64.7 FL (80.0-100.0) Mean Corpuscular Hemoglobin 18.7 PG (27.0-34.0) 19.9 PG (27.0-34.0) 19.1 PG (27.0-34.0) Mean Corpuscular Hemoglobin Concent 30.0 % (32.0-36.0) 30.0 % (32.0-36.0) 29.6 % (32.0-36.0) Neutrophils # (Auto) 8.3 TH/MM3 (1.8-7.7) Ovalocytes 1+ (NORMAL) Activated Partial Thromboplast Time 23.1 SEC (24.3-30.1) Urine Glucose (UA) 500 mg/dL (NEG) Random Glucose 283 MG/DL (74-106) 233 MG/DL (74-106) Calcium Level 8.3 MG/DL (8.5-10.1) 8.4 MG/DL (8.5-10.1) Aspartate Amino Transf (AST/SGOT) 10 U/L (15-37) Sodium Level 134 MEQ/L (136-145) 134 MEQ/L (136-145) Estimat Glomerular Filtration Rate 61 ML/MIN (>89) 67 ML/MIN (>89) Lactic Acid Level 3.8 mmol/L (0.4-2.0) 2.4 mmol/L (0.4-2.0) Red Cell Distribution Width 17.6 % (11.6-17.2) Blood Urea Nitrogen 20 MG/DL (7-18) Imaging Last Impressions Small Bowel X-Ray 06/28/17 0000 Signed Impressions: Service Date/Time: June 09:32 - CONCLUSION: Unremarkable small bowel examination. Walter Torres MD Chest X-Ray [id number]/[id number] Signed Impressions: Service Date/Time: Monday, June 26, 2017 20:17 - CONCLUSION: Borderline cardiomegaly. Priyank Rosa MD Abdomen/Pelvis CT [id number]/[id number] Signed Impressions: Service Date/Time: Monday, June 26, 2017 21:12 - CONCLUSION: 1. No definite acute abnormality is seen. 2. Hepatic steatosis. 3. Status post prostatectomy. 4. Focal areas of sclerosis in the pelvic at the right pubic bone and left iliac bone. These were clearly present in 2013 and are unchanged. The lack of change is encouraging for a less aggressive process. 5. Small hyperdensities in the lateral right mid kidney likely related to cysts. One of these was clearly present on the prior exam. It is felt these could be followed. 6. Scattered colonic diverticula without inflammatory change. Priyank Rosa MD PE at Discharge GENERAL: This is a well-nourished, well-developed patient, sob CARDIOVASCULAR: Regular rate and rhythm without murmurs, gallops, or rubs. RESPIRATORY: Clear to auscultation. Breath sounds equal bilaterally. No wheezes , rales, or rhonchi. GASTROINTESTINAL: Abdomen soft, non-tender, nondistended. Normal active bowel sounds MUSCULOSKELETAL: Extremities without clubbing, cyanosis, or edema. NEURO: Alert & Oriented x4 to person, place, time, situation. Moves all ext x4 Pt update on day of discharge doing well, complaining of sob Hospital Course Patient seen and evaluated for anemia and sob He was transfused 2 units prbcs he had an egd adn a small bowel series He was d/cd for small bowel capsule study Pt Condition on Discharge: Good Discharge Disposition: Discharge Home Discharge Time: <= 30 minutes Discharge Instructions DIET: Follow Instructions for: Diabetic Diet Activities you can perform: Regular-No Restrictions Follow up Referrals: Gastroenterology - 1 Week with Sara Harper M.d. Continued Medications: Albuterol 6.7 GM Inh (Proventil Hfa 6.7 GM Inh) 90 Mcg/Act Aer 2 PUFF INH Q4-6H PRN for SHORTNESS OF BREATH, #1 INHALER 0 Refills Albuterol Neb (Albuterol Neb) 2.5 Mg/0.5 Ml Neb 2.5 MG NEB Q6HR NEB PRN for SHORTNESS OF BREATH, BOX Note: The Albuterol Sulfate Inhalation Solution is concentrated and must be diluted. Read complete instructions carefully before using. Amlodipine (Amlodipine) 5 Mg Tab 5 MG PO DAILY for Blood Pressure Management, #30 TAB 0 Refills Apixaban (Eliquis) 5 Mg Tab 5 MG PO BID for Blood Clot Prevention, #60 TAB 0 Refills Atorvastatin (Atorvastatin) 10 Mg Tab 10 MG PO HS for Cholesterol Management, #30 TAB 0 Refills Coenzyme Q10 (Ubidecarenone) (Coq10) 30 Mg Cap 30 MG PO DAILY Duloxetine DR (Duloxetine DR) 60 Mg Capdr 60 MG PO DAILY, #30 CAP [address] (Duloxetine DR) 60 Mg Capdr 60 MG PO DAILY, #30 CAP 0 Refills Gabapentin (Gabapentin) 600 Mg Tab 600 MG PO BID, #60 TAB 0 Refills Glimepiride (Glimepiride) 1 Mg Tab 1 MG PO DAILY for Blood Sugar Management, #30 TAB 0 Refills Take with breakfast or first main meal Insulin Human NPH Inj (Novolin N Inj) 100 Unit/Ml Inj 100 UNITS SQ BID Isosorbide Mononitrate (Isosorbide Mononitrate) 20 Mg Tab 30 MG PO BID for Prevent Chest Pain, #60 TAB 0 Refills Take 2 doses 7 hours apart. Losartan-Hydrochlorothiazide (Losartan-Hydrochlorothiazide) 100-25 Mg Tab 1 TAB PO DAILY for Blood Pressure Management, #30 TAB 0 Refills Metoprolol Tartrate (Metoprolol Tartrate) 75 Mg Tab 75 MG PO BID, #60 TAB 0 Refills Nitroglycerin SL (Nitroglycerin SL) 0.4 Mg Subl 0.4 MG SL DIRECTED PRN for CHEST PAIN, #100 TAB.SL 0 Refills ONE TABLET UNDER THE TONGUE NEEDED FOR CHEST PAIN, MAY REPEAT EVERY FIVE MINUTES FOR A TOTAL OF 3 DOSES OR CALL 911 IF NO RELIEF Oxycodone (Oxycodone) 15 Mg Tab 15 MG PO Q8H PRN for PAIN, TAB 0 Refills Pantoprazole (Pantoprazole) 40 Mg Tab 40 MG PO BID for Reflux, #30 TAB 0 Refills Sucralfate (Carafate) 1 Gm Tab 1 GM PO BID for Ulcer Prevention, #120 TAB 0 Refills On empty stomach Jessica Garcia MD Jun 28, 2017 14:20
[2017-06-28] MEDS: ATORVASTATIN 10 MG TAB PO SCH (20:44)
== END 2017-06-28 21:48 | disposition home or self-care (01) | DRG 812 ==
LOC: PHED 18:58 → PHEDA 23:31 → INTOOBSV 23:32 → UNDOADMIN 23:32 → OBSVTOIN 23:32 → PHEDA 23:32 → PH5A 06-27 00:30 → UNDODISIN 06-28 21:48
PROVIDERS: ADMIT Hospitalist; ATTEND Hospitalist
PROC: 30233N1 Transfusion of Nonautologous Red Blood Cells into Peripheral Vein, Percutaneous Approach (ICD-10-PCS; 2017-06-27)
PROC: 0DB68ZX Excision of Stomach, Via Natural or Artificial Opening Endoscopic, Diagnostic (ICD-10-PCS; principal; 2017-06-27 12:17)
DX: D64.9 Anemia, unspecified (principal); Z68.41 Body mass index [BMI] 40.0-44.9, adult; E66.01 Morbid (severe) obesity due to excess calories; I48.91 Unspecified atrial fibrillation; Z79.02 Long term (current) use of antithrombotics/antiplatelets; K31.7 Polyp of stomach and duodenum; J44.9 Chronic obstructive pulmonary disease, unspecified; E11.9 Type 2 diabetes mellitus without complications; Z79.84 Long term (current) use of oral hypoglycemic drugs; Z87.891 Personal history of nicotine dependence; Z85.038 Personal history of other malignant neoplasm of large intestine; Z85.46 Personal history of malignant neoplasm of prostate; E78.5 Hyperlipidemia, unspecified; I25.10 Atherosclerotic heart disease of native coronary artery without angina pectoris; Z95.5 Presence of coronary angioplasty implant and graft; H91.90 Unspecified hearing loss, unspecified ear
CPT/HCPCS: 36430; 71010; 74177; 74250; 80048; 80053; 81001; 82948; 83605; 83690; 84484; 85025; 85027; 85610; 85730; 86850; 86900; 86901; 86920; 88305; 88312; 93005; 96361; 96365; 96372; C9113; G0378; J1170; J1815; J2405; J7050; J7120; J7613; P9016; Q9967

== ENCOUNTER 2017-07-11 19:09 | Emergency (ER) | payer MEDICARE, OTHER ==
[~2017-07-11 19:09] MED LIST changes: +COQ130CA PO; +ISOS20TA PO; +LOSA100T2 PO; +METO-426 PO; -SPIRCAP INH
[2017-07-11 19:13] VITALS: BP 168/74; PULSE 80; RESP 20; TEMP 98.3; O2SAT 99
[2017-07-11] MEDS ORDERED: PERC10TA27 PO (19:49)
[2017-07-11] MEDS ORDERED: NOVOLOGSS SQ (19:53)
[2017-07-11 19:55] VITALS: BP 186/78; PULSE 77; RESP 20; O2SAT 94
[2017-07-11] MEDS ORDERED: SODIUM CHLOR 0.9% 1000 ML INJ 1,000 ML IV SCH (20:19)
--- NOTE | 2017-07-11 20:27 | PD ---
HPI Chief Complaint: Abnormal Results Time Seen by Provider: 20:01 Travel History International Travel<30 days: No Contact w/Intl Traveler<30days: No Traveled to known affect area: No History of Present Illness HPI The patient is a 66-year-old male that has had right sided abdominal pain for 6 months associated with anemia. Occasionally there has been a GI bleed. The patient sees Dr. Allan for this. The patient has been sent to the emergency department repeatedly by his physicians for this. The patient states that his white count was elevated at 15,000 and the physician certified medical technician assistant sent to the emergency department. The patient does have a history of atrial fibrillation and takes Eliquis for this. He has had both upper and lower endoscopies by Dr. Allan. Findings include Cardoza's esophagus, ulcers and polyps. The patient states they want to send a camera down the GI tract. He does have nausea but denies any fever. PFSH Past Medical History Hx Anticoagulant Therapy: Yes Arthritis: Yes Asthma: Yes Atrial Fibrillation: Yes Autoimmune Disease: No Anxiety: Yes Depression: Yes Heart Rhythm Problems: Yes Cancer: Yes (PROSTATE 2008, L BREAST 2006--ALSO REMOVED LYMPH NODES, COLON 2002 ) Cardiac Catheterization: Yes Cardiovascular Problems: Yes High Cholesterol: Yes Chemotherapy: No Chest Pain: Yes Congestive Heart Failure: Yes COPD: Yes Cerebrovascular Accident: Yes Coronary Artery Disease: Yes Diabetes: Yes Patient Takes Glucophage: No Diminished Hearing: Yes (bilateral aids) Endocrine: Yes Fibromyalgia: Yes Gastrointestinal Disorders: Yes (OCC ACID REFLUX) GERD: Yes Glaucoma: No Genitourinary: Yes Headaches: Yes Hepatitis: No Hiatal Hernia: Yes Hypertension: Yes Immune Disorder: No Implanted Vascular Access Dvce: Yes Kidney Stones: Yes Musculoskeletal: Yes Neurologic: Yes Psychiatric: Yes Reproductive: No Respiratory: Yes Integumentary: No Immunizations Current: Yes Migraines: Yes Pancreatitis: Yes Pneumonia: Yes Radiation Therapy: No Renal Failure: No Seizures: No Sleep Apnea: No Thyroid Disease: Yes Ulcer: Yes Tetanus Vaccination: < 5 Years Influenza Vaccination: Yes Past Surgical History Abdominal Surgery: Yes (HERNIA REPAIR X 2; COLON RESECTION R/T DIVERTICULITIS, COLON CA 2002) Appendectomy: Yes Body Medical Devices: loop recorder, CAGE AND SCREWS L5-S1, CARDIAC STENT Cardiac Surgery: Yes (ABLATION X 2 2015) Cholecystectomy: Yes Coronary Artery Bypass Graft: No Coronary Stent: Yes (X1) Ear Surgery: No Endocrine Surgery: No Eye Surgery: No Genitourinary Surgery: Yes (PROSTATECTOMY 2008) Gynecologic Surgery: No Hysterectomy: No Neurologic Surgery: Yes (BACK/NECK SURGERY) Oral Surgery: No Prostatectomy: Yes Thoracic Surgery: Yes (L BREAST 2006--ALSO REMOVED LYMPH NODES) Other Surgery: Yes (NECK AND BACK-L5, S1, ABLATIONX2 2016) Family History Family Myocardial Infarction: Yes Social History Alcohol Use: Yes (Occ) Tobacco Use: No (2003 QUIT) Substance Use: No Allergies-Medications (Allergen,Severity, Reaction): Coded Allergies: adhesive (Unverified Allergy, Severe, Rash, 07/11/17) atorvastatin (Unverified Allergy, Severe, MUSCLE WEAKNESS, 07/11/17) pravastatin (Unverified Allergy, Severe, MUSCLE WEAKNESS, 07/11/17) rosuvastatin (Unverified Allergy, Severe, MUSCLE WEAKNESS, 07/11/17) morphine (Unverified Adverse Reaction, Severe, BECOMES VERY AGGRESSIVE, ) Reported Meds & Prescriptions Reported Meds & Active Scripts Active Reported Novolog Inj (Insulin Aspart) 100 Unit/Ml Inj 25 Units SQ HS Percocet (Oxycodone-Acetaminophen) 10-325 mg Tab 1 Tab PO Q6H PRN Coq10 (Coenzyme Q10 (Ubidecarenone)) 30 Mg Cap 30 Mg PO DAILY Isosorbide Mononitrate 20 Mg Tab 30 Mg PO DAILY Take 2 doses [address]. [address] (Duloxetine HCl) 60 Mg Capdr 60 Mg PO DAILY Metoprolol Tartrate 75 Mg Tab 75 Mg PO BID Losartan-Hydrochlorothiazide 100-25 Mg Tab 1 Tab PO DAILY Pantoprazole (Pantoprazole Sodium) 40 Mg Tab 40 Mg PO HS Nitroglycerin SL (Nitroglycerin) 0.4 Mg Subl 0.4 Mg SL DIRECTED PRN ONE TABLET UNDER THE TONGUE NEEDED FOR CHEST PAIN, MAY REPEAT EVERY FIVE MINUTES FOR A TOTAL OF 3 DOSES OR CALL 911 IF NO RELIEF Carafate (Sucralfate) 1 Gm Tab 1 Gm PO BID On empty stomach Eliquis (Apixaban) 5 Mg Tab 5 Mg PO BID Albuterol Neb (Albuterol Sulfate) 2.5 Mg/0.5 Ml Neb 2.5 Mg NEB Q6HR NEB PRN Note: The Albuterol Sulfate Inhalation Solution is concentrated and must be diluted. Read complete instructions carefully before using. Proventil Hfa 6.7 GM Inh (Albuterol Sulfate) 90 Mcg/Act Aer 2 Puff INH Q4-6H PRN Novolin N Inj (Insulin Human NPH) 100 Unit/Ml Inj 100 Units SQ BID Gabapentin 600 Mg Tab 600 Mg PO BID Atorvastatin (Atorvastatin Calcium) 10 Mg Tab 10 Mg PO HS Glimepiride 1 Mg Tab 2 Mg PO DAILY Take with breakfast or first main meal Amlodipine (Amlodipine Besylate) 5 Mg Tab 5 Mg PO DAILY Review of Systems Except as stated in HPI: all other systems reviewed are Neg Physical Exam Narrative GENERAL: [-] SKIN: Focused skin assessment warm/dry. HEAD: Atraumatic. Normocephalic. EYES: Pupils equal and round. No scleral icterus. No injection or drainage. ENT: No nasal bleeding or discharge. Mucous membranes pink and moist. NECK: Trachea midline. No JVD. CARDIOVASCULAR: Regular rate and rhythm. No murmur appreciated. RESPIRATORY: No accessory muscle use. Clear to auscultation. Breath sounds equal bilaterally. GASTROINTESTINAL: Abdomen soft, non-tender, nondistended. Hepatic and splenic margins not palpable. MUSCULOSKELETAL: No obvious deformities. No clubbing. No cyanosis. No edema. NEUROLOGICAL: Awake and alert. No obvious cranial nerve deficits. Motor grossly within normal limits. Normal speech. PSYCHIATRIC: Appropriate mood and affect; insight and judgment normal. Data Data Last Documented VS Vital Signs Date Time Temp Pulse Resp B/P (MAP) Pulse Ox O2 Delivery O2 Flow Rate FiO2 07/11/17 23:15 98.3 72 20 158/78 (104) 95 Room Air Orders Orders Complete Blood Count With Diff (07/11/17 20:19) Comprehensive Metabolic Panel (07/11/17 20:19) Lipase (07/11/17 20:19) Urinalysis - C+S If Indicated (07/11/17 20:19) Ct Abd/Pel W Iv Contrast(Rout) (07/11/17 20:19) Iv Access Insert/Monitor (07/11/17 20:19) Ecg Monitoring (07/11/17 20:19) Oximetry (07/11/17 20:19) Ondansetron Inj (Zofran Inj) (07/11/17 20:30) Sodium Chlor 0.9% 1000 Ml Inj (Ns 1000 M (07/11/17 20:19) Sodium Chloride 0.9% Flush (Ns Flush) (07/11/17 20:30) Electrocardiogram (07/11/17 20:19) Iohexol 350 Inj (Omnipaque 350 Inj) (07/11/17 22:04) Labs Laboratory Tests Test 07/11/17 20:30 07/11/17 21:25 White Blood Count 12.7 TH/MM3 Red Blood Count 5.06 MIL/MM3 Hemoglobin 10.3 GM/DL Hematocrit 33.4 % Mean Corpuscular Volume 66.1 FL Mean Corpuscular Hemoglobin 20.4 PG Mean Corpuscular Hemoglobin Concent 30.9 % Red Cell Distribution Width 19.5 % Platelet Count 378 TH/MM3 Mean Platelet Volume 7.5 FL Neutrophils (%) (Auto) 67.6 % Lymphocytes (%) (Auto) 22.6 % Monocytes (%) (Auto) 7.4 % Eosinophils (%) (Auto) 1.9 % Basophils (%) (Auto) 0.5 % Neutrophils # (Auto) 8.6 TH/MM3 Lymphocytes # (Auto) 2.9 TH/MM3 Monocytes # (Auto) 0.9 TH/MM3 Eosinophils # (Auto) 0.2 TH/MM3 Basophils # (Auto) 0.1 TH/MM3 CBC Comment AUTO DIFF Differential Comment AUTO DIFF CONFIRMED Platelet Estimate NORMAL Platelet Morphology Comment NORMAL Blood Urea Nitrogen 12 MG/DL Creatinine 1.10 MG/DL Random Glucose 265 MG/DL Total Protein 8.0 GM/DL Albumin 3.7 GM/DL Calcium Level 8.8 MG/DL Alkaline Phosphatase 95 U/L Aspartate Amino Transf (AST/SGOT) 29 U/L Alanine Aminotransferase (ALT/SGPT) 40 U/L Total Bilirubin 0.4 MG/DL Sodium Level 135 MEQ/L Potassium Level 3.4 MEQ/L Chloride Level 95 MEQ/L Carbon Dioxide Level 28.6 MEQ/L Anion Gap 11 MEQ/L Estimat Glomerular Filtration Rate 67 ML/MIN Lipase 146 U/L Urine Color YELLOW Urine Turbidity CLEAR Urine pH 7.0 Urine Specific [place] 1.027 Urine Protein NEG mg/dL Urine Glucose (UA) 1000 OR GREATER mg/dL Urine Ketones NEG mg/dL Urine Occult Blood NEG Urine Nitrite NEG Urine Bilirubin NEG Urine Leukocyte Esterase NEG Urine WBC 0-2 /hpf Urine Squamous Epithelial Cells 0-5 /hpf Microscopic Urinalysis Comment CULT NOT INDICATED MDM Medical Decision Making Medical Screen Exam Complete: Yes Emergency Medical Condition: Yes Medical Record Reviewed: Yes Interpretation(s) The CBC shows a white count of 12,700 with a hemoglobin of 10.3 and hematocrit of 23 4. The urinalysis shows 1000 or greater glucose but is otherwise normal and culture is not indicated. The complete metabolic profile shows a GFR of 67 , glucose 265 with sodium 135 and potassium 3.4 but is otherwise normal. Lipase is normal. The CT abdomen/pelvis with IV contrast shows stable CT abdomen and pelvis with no acute process. The EKG shows sinus rhythm with a rate of [address] elevation or depression. Differential Diagnosis Chronic abdominal pain of unknown etiology, anemia, electrolyte disorder, intestinal abscess, right sided diverticulitis, dehydration Narrative Course The patient has abdominal pain of unknown etiology. His pain is chronic and is followed by drop wire hanger. He should follow-up with a gastrologist. Physician Communication Physician Communication Abdominal pain etiology unknown Diagnosis Primary Impression: Abdominal pain of unknown etiology Additional Instructions: Follow-up with Dr. Allan. There is nothing wrong with asking for a second opinion. Med/Other Pt SpecificInfo: No Change to Meds Disposition: 01 DISCHARGE HOME Condition: Stable Manolo Katz MD Jul 11, 2017 20:27
[2017-07-11] MEDS ORDERED: SODIUM CHLORIDE 0.9% FLUSH 10 ML FLUSH IV FLUSH PRN (20:30)
[2017-07-11] MEDS ORDERED: ONDANSETRON HCL 4 MG/2 ML VIAL IVP ONE (20:30)
[2017-07-11 20:54] LABS: CHLORIDE 95 MEQ/L (98-107); POTASSIUM 3.4 MEQ/L (3.5-5.1); SODIUM (NA) 135 MEQ/L (136-145)
[2017-07-11 20:59] LABS: ANION GAP 11 MEQ/L (5-15); BICARBONATE 28.6 MEQ/L (21.0-32.0); BLOOD UREA NITROGEN 12 MG/DL (7-18)
[2017-07-11 21:01] LABS: ALT (GPT) 40 U/L (12-78)
[2017-07-11 21:02] LABS: AST (GOT) 29 U/L (15-37); GLOMERULAR FILTRATION RATE 67 ML/MIN (>89)
[2017-07-11 21:03] LABS: TOTAL BILIRUBIN ADULT 0.4 MG/DL (0.2-1.0)
[2017-07-11 21:04] LABS: ALKALINE PHOSPHATASE 95 U/L (45-117)
[2017-07-11 21:15] VITALS: BP 171/70; PULSE 74; RESP 20; O2SAT 94
[2017-07-11 21:35] LABS: BLOOD, URINE NEG (NEG); GLUCOSE,URINE 1000 OR GREATER mg/dL (NEG); KETONE, URINE NEG (NEG); NITRITE,URINE NEG (NEG)
[2017-07-11 21:43] LABS: URINE COLOR YELLOW (YELLW/STRAW)
[2017-07-11 21:44] LABS: COMMENT (UR) CULT NOT INDICATED; CULTURE IF INDICATED CULT NOT INDICATED; SQUAMOUS EPITHELIAL CELL URINE 0-5 /hpf (0-5); WBC, URINE 0-2 /hpf (0-5)
[2017-07-11] MEDS ORDERED: IOHEXOL 350 MG/ML 10 ML VIAL (for RAD DIAG) IVCONTRAST ONE (22:04)
[2017-07-11 22:15] VITALS: BP 144/66; PULSE 76; RESP 20; O2SAT 95
[2017-07-11 22:18] LABS: AUTOMATED NEUTROPHIL # 8.6 TH/MM3 (1.8-7.7); BASOPHIL # 0.1 TH/MM3 (0-0.2); BASOPHIL % 0.5 % (0.0-2.0); EOSINOPHIL # 0.2 TH/MM3 (0-0.4); EOSINOPHIL % 1.9 % (0.0-4.0); HEMATOCRIT 33.4 % (39.0-51.0); LYMPH % 22.6 % (9.0-44.0); LYMPHOCYTE # 2.9 TH/MM3 (1.0-4.8); MEAN CELL VOLUME 66.1 FL (80.0-100.0); MEAN CORPUSCULAR HEMOGLOBIN 20.4 PG (27.0-34.0); MEAN CORPUSCULAR HGB CONC 30.9 % (32.0-36.0); MONO % 7.4 % (0.0-8.0); NEUT % 67.6 % (16.0-70.0); PLATELET COUNT 378 TH/MM3 (150-450); RED BLOOD COUNT 5.06 MIL/MM3 (4.50-5.90); RED CELL DISTRIBUTION WIDTH 19.5 % (11.6-17.2); WHITE BLOOD COUNT 12.7 TH/MM3 (4.0-11.0)
[2017-07-11 22:20] LABS: HEMO FLAGS AUTO DIFF
--- NOTE | 2017-07-11 22:27 | RADRPT ---
EXAM DATE/TIME: 07/11/2017 21:58 [facility] COMPARISON: CT ABDOMEN & PELVIS W CONTRAST, June 26, 2017, 21:12. INDICATIONS : Irregular white blood count. Right lower quadrant pain. IV CONTRAST: 95 cc Omnipaque 350 (iohexol) IV ORAL CONTRAST: No oral contrast ingested. RADIATION DOSE: 26.80 CTDIvol (mGy) ; Patient body habitus MEDICAL HISTORY : Cardiovascular disease. Pancreatitis. Carcinoma, colon.Prostate cancer. Hernia. Diabetes. SURGICAL HISTORY : Appendectomy. Cholecystectomy.Colon resection.Prostatectomy. Hernia repair. L umbar fusion. ENCOUNTER: Initial ACUITY: 1 day PAIN SCALE: 0/10 LOCATION: Right lower quadrant abdomen TECHNIQUE: Volumetric scanning of the abdomen and pelvis was performed. Using automated exposure control and adjustment of the mA and/or kV according to patient size, radiation dose was kept as low as reasonably achievable to obtain optimal diagnostic quality images. DICOM format image data is av ailable electronically for review and comparison. FINDINGS: Examination is stable relative to prior study. There is evidence of prior cholecystecto my with clips in place and no evidence of dilated ducts with steatosis fatty metamorphosis of the caren er. Kidneys adrenals pancreas and spleen appear normal with extensive vascular calcifications without aneurysm formation. Evidence of prior prostatectomy appreciated clips in place. Small hypodensities in the right kidney consistent with cysts are unchanged. There are scattered diverticuli throughout t he colon which retains small amounts of contrast is compared to the prior study without evidence of d iverticulitis, free fluid, free air or abscess formation. Prior extensive lumbar surgery laminectomy and transpedicular screws with vertical stabilization bars. are appreciated with evidence of laminect ella. CONCLUSION: Stable CT scan of the abdomen and pelvis with no acute process. Prior cholecystectomy and prostatectomy are appreciated with fatty metamorphosis of the liver. Small right renal cysts are unchanged. Scattered uncomplicated dive rticuli of the colon which contain contrast are appreciated. Errol Dow MD on July 11, 2017 at 22:19 Board Certified Radiologist. This report was verified electronically.
[2017-07-11 23:15] VITALS: BP 158/78; PULSE 72; RESP 20; TEMP 98.3; O2SAT 95
[2017-07-11 23:15] LABS: PLATELET ESTIMATE SMEAR NORMAL (NORMAL); PLATELET MORPHOLOGY NORMAL (NORMAL); SCAN/DIFF AUTO DIFF CONFIRMED
--- NOTE | 2017-07-12 13:21 | EKG ---
Date Performed: 07/11/2017 Time Performed: 20:37:23 PTAGE: 66 years EKG: Normal Sinus rhythm Left axis deviation ABNORMAL ECG PREVIOUS TRACING : 06/26/2017 20.21 Compared to prior tracing no significant change DOCTOR: Edwin Le Interpretating Date/Time 07/12/2017 13:20:00
== END 2017-07-11 23:41 | disposition home or self-care (01) ==
LOC: PHED 19:09
DX: R10.9 Unspecified abdominal pain (principal); I48.91 Unspecified atrial fibrillation; D64.9 Anemia, unspecified; K22.70 Barrett's esophagus without dysplasia; I11.0 Hypertensive heart disease with heart failure; I50.9 Heart failure, unspecified; I25.10 Atherosclerotic heart disease of native coronary artery without angina pectoris; E11.9 Type 2 diabetes mellitus without complications; Z79.01 Long term (current) use of anticoagulants; Z79.4 Long term (current) use of insulin; Z79.899 Other long term (current) drug therapy; Z87.891 Personal history of nicotine dependence
CPT/HCPCS: 74177; 80053; 81001; 83690; 85025; 93005; 96361; 96374; 99285; J2405; J7030; Q9967

== ENCOUNTER 2017-10-30 13:57 | Emergency (ER) | payer OTHER ==
[~2017-10-30] VITALS: Ht 182.9 cm; Wt 150.0 kg
[~2017-10-30 13:57] MED LIST changes: +NOVOLOGSS SQ; -OXYC15TA PO; +PERC10TA27 PO
[2017-10-30 13:59] VITALS: BP 135/71; PULSE 71; RESP 18; TEMP 97.9; O2SAT 95
--- NOTE | 2017-10-30 14:34 | PD ---
HPI Chief Complaint: Diabetic Time Seen by Provider: 14:14 Travel History International Travel<30 days: No Contact w/Intl Traveler<30days: No Traveled to known affect area: No History of Present Illness HPI This 66-year-old male has multiple complaints. She is a last yesterday he went and had an epidural spinal injection because of chronic back pain. He has had multiple back surgeries and has persistent pain. He had the epidural yesterday afternoon and last night his sugar went up to 571. Today it is 420. He has multiple medical problems. He has COPD he has paroxysmal atrial fibrillation. He is on Eliquis. He did not stop the Eliquis for the injection. Today he is having some headache at the vertex of the scalp. He has some neck pain. His back felt a little better last night but is having his usual pain now. He says his headache seems worse when he lays flat. PFSH Past Medical History Hx Anticoagulant Therapy: Yes (ELIQUIS) Anemia: Yes Arthritis: Yes Asthma: Yes Atrial Fibrillation: Yes Autoimmune Disease: No Anxiety: Yes Depression: Yes Heart Rhythm Problems: Yes Cancer: Yes (PROSTATE 2008, L BREAST 2006--ALSO REMOVED LYMPH NODES, COLON 2002 ) Cardiac Catheterization: Yes Cardiovascular Problems: Yes (LOOP RECORDER) High Cholesterol: Yes Chemotherapy: No Chest Pain: Yes Congestive Heart Failure: Yes COPD: Yes Cerebrovascular Accident: Yes Coronary Artery Disease: Yes Diabetes: Yes Patient Takes Glucophage: No Diminished Hearing: Yes (bilateral aids) Endocrine: Yes Fibromyalgia: Yes Gastrointestinal Disorders: Yes (OCC ACID REFLUX) GERD: Yes Glaucoma: No Genitourinary: Yes Headaches: Yes Hepatitis: No Hiatal Hernia: Yes Hypertension: Yes Immune Disorder: No Implanted Vascular Access Dvce: Yes Kidney Stones: Yes Musculoskeletal: Yes Neurologic: Yes Psychiatric: Yes Reproductive: No Respiratory: Yes (COPD ASTHMA) Integumentary: No Immunizations Current: Yes Migraines: Yes Pancreatitis: Yes Pneumonia: Yes Radiation Therapy: No Renal Failure: No Seizures: No Sleep Apnea: No Thyroid Disease: Yes Ulcer: Yes Tetanus Vaccination: < 5 Years Influenza Vaccination: Yes Past Surgical History Abdominal Surgery: Yes (HERNIA REPAIR X 2; COLON RESECTION R/T DIVERTICULITIS, COLON CA 2002) Appendectomy: Yes Body Medical Devices: loop recorder, CAGE AND SCREWS L5-S1, CARDIAC STENT Cardiac Surgery: Yes (ABLATION X 2 2015) Cholecystectomy: Yes Coronary Artery Bypass Graft: No Coronary Stent: Yes (X1) Ear Surgery: No Endocrine Surgery: No Eye Surgery: No Genitourinary Surgery: Yes (PROSTATECTOMY 2008) Gynecologic Surgery: No Hysterectomy: No Neurologic Surgery: Yes (BACK/NECK SURGERY) Oral Surgery: No Prostatectomy: Yes Thoracic Surgery: Yes (L BREAST 2006--ALSO REMOVED LYMPH NODES) Other Surgery: Yes (NECK AND BACK-L5, S1, ABLATIONX2 2016) Family History Family Myocardial Infarction: Yes Social History Alcohol Use: Yes (Occ) Tobacco Use: No (2003 QUIT) Substance Use: No Allergies-Medications (Allergen,Severity, Reaction): Coded Allergies: adhesive (Unverified Allergy, Severe, Rash, 10/30/17) atorvastatin (Unverified Allergy, Severe, MUSCLE WEAKNESS, 10/30/17) pravastatin (Unverified Allergy, Severe, MUSCLE WEAKNESS, 10/30/17) rosuvastatin (Unverified Allergy, Severe, MUSCLE WEAKNESS, 10/30/17) morphine (Unverified Adverse Reaction, Severe, BECOMES VERY AGGRESSIVE, 10/30/17) Reported Meds & Prescriptions Reported Meds & Active Scripts Active Reported Novolog Inj (Insulin Aspart) 100 Unit/Ml Inj 25 Units SQ HS Percocet (Oxycodone-Acetaminophen) 10-325 mg Tab 1 Tab PO Q6H PRN Coq10 (Coenzyme Q10 (Ubidecarenone)) 30 Mg Cap 30 Mg PO DAILY Isosorbide Mononitrate 20 Mg Tab 30 Mg PO DAILY Take 2 doses [address]. [address] (Duloxetine HCl) 60 Mg Capdr 60 Mg PO DAILY Metoprolol Tartrate 75 Mg Tab 75 Mg PO BID Losartan-Hydrochlorothiazide 100-25 Mg Tab 1 Tab PO DAILY Pantoprazole (Pantoprazole Sodium) 40 Mg Tab 40 Mg PO HS Nitroglycerin SL (Nitroglycerin) 0.4 Mg Subl 0.4 Mg SL DIRECTED PRN ONE TABLET UNDER THE TONGUE NEEDED FOR CHEST PAIN, MAY REPEAT EVERY FIVE MINUTES FOR A TOTAL OF 3 DOSES OR CALL 911 IF NO RELIEF Carafate (Sucralfate) 1 Gm Tab 1 Gm PO BID On empty stomach Eliquis (Apixaban) 5 Mg Tab 5 Mg PO BID Albuterol Neb (Albuterol Sulfate) 2.5 Mg/0.5 Ml Neb 2.5 Mg NEB Q6HR NEB PRN Note: The Albuterol Sulfate Inhalation Solution is concentrated and must be diluted. Read complete instructions carefully before using. Proventil Hfa 6.7 GM Inh (Albuterol Sulfate) 90 Mcg/Act Aer 2 Puff INH Q4-6H PRN Novolin N Inj (Insulin Human NPH) 100 Unit/Ml Inj 100 Units SQ BID Gabapentin 600 Mg Tab 600 Mg PO BID Atorvastatin (Atorvastatin Calcium) 10 Mg Tab 10 Mg PO HS Glimepiride 1 Mg Tab 2 Mg PO DAILY Take with breakfast or first main meal Amlodipine (Amlodipine Besylate) 5 Mg Tab 5 Mg PO DAILY Review of Systems General / Constitutional: No: Fever Eyes: No: Diploplia HENT: Positive: Headaches Cardiovascular: No: Chest Pain or Discomfort, Palpitations Respiratory: No: Cough, Shortness of Breath Gastrointestinal: No: Nausea, Vomiting Genitourinary: No: Urgency, Frequency Musculoskeletal: No: Myalgias, Arthralgias Skin: No Rash Neurologic: No: Dizziness, Syncope Endocrine: No: Heat Intolerance Hematologic/Lymphatic: No: Easy Bruising Physical Exam Narrative GENERAL: Obese male with multiple scars SKIN: Focused skin assessment warm/dry. HEAD: Atraumatic. Normocephalic. EYES: Pupils equal and round. No scleral icterus. No injection or drainage. ENT: No nasal bleeding or discharge. Mucous membranes pink and moist. NECK: Trachea midline. No JVD. CARDIOVASCULAR: Regular rate and rhythm. No murmur appreciated. RESPIRATORY: No accessory muscle use. Clear to auscultation. Breath sounds equal bilaterally. GASTROINTESTINAL: Abdomen soft, non-tender, nondistended. Hepatic and splenic margins not palpable. MUSCULOSKELETAL: No obvious deformities. No clubbing. No cyanosis. No edema. NEUROLOGICAL: Awake and alert. No obvious cranial nerve deficits. Motor grossly within normal limits. Normal speech. PSYCHIATRIC: Appropriate mood and affect; insight and judgment normal. Data Data Last Documented VS Vital Signs Date Time Temp Pulse Resp B/P (MAP) Pulse Ox O2 Delivery O2 Flow Rate FiO2 10/30/17 14:14 74 96 Room Air 10/30/17 13:59 97.9 18 135/71 (92) Orders Orders Basic Metabolic Panel (Bmp) (10/30/17 14:35) Beta Hydroxybutyrate (Acetone) (10/30/17 14:35) Sodium Chlor 0.9% 1000 Ml Inj (Ns 1000 M (10/30/17 14:45) Insulin Human Regular Inj (Novolin R Inj (10/30/17 14:45) Ondansetron Inj (Zofran Inj) (10/30/17 14:45) Hydromorphone Pf Inj (Dilaudid Pf Inj) (10/30/17 15:15) Labs Laboratory Tests Test 10/30/17 14:45 Blood Urea Nitrogen 18 MG/DL Creatinine 1.30 MG/DL Random Glucose 350 MG/DL Calcium Level 9.7 MG/DL Sodium Level 132 MEQ/L Potassium Level 4.4 MEQ/L Chloride Level 95 MEQ/L Carbon Dioxide Level 28.9 MEQ/L Anion Gap 8 MEQ/L Estimat Glomerular Filtration Rate 56 ML/MIN B-Hydroxybutyrate 0.08 MMOL/L MDM Medical Decision Making Medical Screen Exam Complete: Yes Emergency Medical Condition: Yes Medical Record Reviewed: Yes Differential Diagnosis Differential includes steroid-induced hyperglycemia, spinal tap headache, nonspecific headache Narrative Course Patient's blood sugar now is 350. He's been given some regular insulin. He'll be observed. He has Percocet to use for headache. I recommended that he drink caffeine and drink lots of fluids in the event this is a spinal tap headache Diagnosis Primary Impression: Hyperglycemia Disposition: 01 DISCHARGE HOME Condition: Stable Gautam Maldonado MD Oct 30, 2017 14:34
[2017-10-30] MEDS ORDERED: HYDROmorphone HCL PF 1 MG/ML VIAL IV PUSH ONE (14:45)
[2017-10-30] MEDS ORDERED: ONDANSETRON HCL 4 MG/2 ML VIAL IV PUSH ONE (14:45)
[2017-10-30] MEDS ORDERED: INSULIN HUMAN REGULAR 1,000 UNITS/10 ML VIAL SQ ONE (14:45)
[2017-10-30] MEDS ORDERED: SODIUM CHLOR 0.9% 1000 ML INJ 1,000 ML IV ONE (14:45)
[2017-10-30 15:04] LABS: BICARBONATE 28.9 MEQ/L (21.0-32.0); CALCIUM 9.7 MG/DL (8.5-10.1)
[2017-10-30 15:08] LABS: CREATININE 1.3 MG/DL (0.60-1.30)
[2017-10-30] MEDS ORDERED: HYDROmorphone HCL PF 2 MG/ML VIAL IV PUSH ONE (15:15)
[2017-10-30 16:10] VITALS: BP 140/57; PULSE 76; RESP 16; O2SAT 93
== END 2017-10-30 16:28 | disposition home or self-care (01) ==
LOC: PHED 13:57
DX: R73.9 Hyperglycemia, unspecified (principal); E11.65 Type 2 diabetes mellitus with hyperglycemia; J44.9 Chronic obstructive pulmonary disease, unspecified; I48.0 Paroxysmal atrial fibrillation; F32.9 Major depressive disorder, single episode, unspecified; J45.909 Unspecified asthma, uncomplicated; E78.00 Pure hypercholesterolemia, unspecified; I25.10 Atherosclerotic heart disease of native coronary artery without angina pectoris; M79.7 Fibromyalgia; I10 Essential (primary) hypertension; Z79.01 Long term (current) use of anticoagulants; Z79.4 Long term (current) use of insulin; Z85.3 Personal history of malignant neoplasm of breast; Z86.73 Personal history of transient ischemic attack (TIA), and cerebral infarction without residual deficits; Z85.46 Personal history of malignant neoplasm of prostate; Z85.038 Personal history of other malignant neoplasm of large intestine; Z95.5 Presence of coronary angioplasty implant and graft; Z88.5 Allergy status to narcotic agent; Z88.8 Allergy status to other drugs, medicaments and biological substances; Z91.048 Other nonmedicinal substance allergy status
CPT/HCPCS: 80048; 82010; 96361; 96372; 96374; 96375; 99284; J1170; J1815; J2405; J7030

== ENCOUNTER 2017-11-22 20:17 | Emergency (ER) | payer MEDICARE, OTHER ==
[~2017-11-22] VITALS: Ht 182.9 cm; Wt 150.1 kg
[2017-11-22 20:33] VITALS: BP 130/65; PULSE 65; RESP 18; TEMP 98.1; O2SAT 94
[2017-11-22 21:10] LABS: BILIRUBIN, URINE NEG (NEG); BLOOD, URINE NEG (NEG); GLUCOSE,URINE NEG (NEG); KETONE, URINE TRACE mg/dL (NEG); NITRITE,URINE NEG (NEG); URINE COLOR YELLOW (YELLW/STRAW); URINE LEUKOCYTE ESTERASE NEG (NEG)
[2017-11-22 21:17] LABS: RBC, URINE 0-2 /hpf (0-3); WBC, URINE 0-2 /hpf (0-5)
[2017-11-22 21:18] LABS: SQUAMOUS EPITHELIAL CELL URINE 0-5 /hpf (0-5)
== END 2017-11-22 22:26 | disposition left against medical advice (07) ==
LOC: PHED 20:17
DX: R10.9 Unspecified abdominal pain (principal); M54.9 Dorsalgia, unspecified
CPT/HCPCS: 81001; 99281

== ENCOUNTER 2018-01-09 00:25 | Inpatient (IN) | payer MEDICARE ==
[2018-01-09] VITALS (13 sets, daily range): BP systolic 135–165; BP diastolic 64–101; PULSE 52–178; RESP 16–28; TEMP 97.4–98.8; O2SAT 94–99
[~2018-01-09] VITALS: Ht 182.9 cm; Wt 148.5 kg
[2018-01-09] MEDS ORDERED: AMIODARONE INJ 150 MG in DEXTROSE 5% IN WATER 100ML INJ 97 ML IV ONE ×2 (00:33)
[2018-01-09] MEDS ORDERED: ONDANSETRON HCL 4 MG/2 ML VIAL ONE (00:39)
[2018-01-09] MEDS ORDERED: AMIODARONE INJ 450 MG in DEXTROSE 5% IN WATE(EXCEL) INJ 241 ML IV PRN ×2 (00:43)
[2018-01-09] MEDS ORDERED: ASPIRIN 81 MG CHEW TAB PO ONE (00:45)
[2018-01-09] MEDS ORDERED: SODIUM CHLORIDE 0.9% FLUSH 10 ML FLUSH IVF PRN (00:45)
[2018-01-09] MEDS ORDERED: ONDANSETRON HCL 4 MG/2 ML VIAL IV PUSH ONE (00:45)
[2018-01-09] MEDS ORDERED: METOCLOPRAMIDE HCL 10 MG/2 ML VIAL IV PUSH ONE (00:45)
[2018-01-09] MEDS ORDERED: HYDROmorphone HCL PF 2 MG/ML VIAL IV PUSH ONE ×2 (00:45→01:00)
[2018-01-09] MEDS: SODIUM CHLOR 0.9% 1000 ML INJ 1,000 ML IV SCH ×2 (00:52→15:29)
[2018-01-09] MEDS: NITROGLYCERIN 0.4 MG SL 25 TABS/BTL SL SCH ×3 (00:55→01:24)
[2018-01-09] MEDS ORDERED: NITROGLYCERIN 2% OINT 1 GM PACKET TOPICAL ONE (01:00)
--- NOTE | 2018-01-09 01:07 | RADRPT ---
EXAM DATE/TIME: 01/09/2018 00:44 [facility] COMPARISON: CHEST SINGLE AP, June 26, 2017, 20:17. INDICATIONS : Chest pain. MEDICAL HISTORY : Cardiovascular disease. Pancreatitis. Carcinoma, colon. Prostate cancer. Hernia. Diabetes SURGICAL HISTORY : Fusion, lumbar. Loop recorder, Appendectomy. Cholecystectomy.Colon resection.Prostatectomy. Hernia repair ENCOUNTER: Initial ACUITY: 1 day PAIN SCORE: 9/10 LOCATION: Bilateral chest FINDINGS: Trace left base atelectasis. No pleural effusion or pneumothorax. Heart size stable, upper limits of normal. Implanted cardiac Loop recorder again seen Mediastinal silhouette within normal limits. CONCLUSION: Mild left base atelectasis. Otherwise negative. Priyank Tang MD on January 09, 2018 at 1:04 Board Certified Radiologist. This report was verified electronically.
[2018-01-09] MEDS ORDERED: METOPROLOL TARTRATE 5 MG/5 ML VIAL IV PUSH ONE (01:15)
[2018-01-09 01:30] LABS: AUTOMATED NEUTROPHIL # 16.8 TH/MM3 (1.8-7.7); BASOPHIL # 0.1 TH/MM3 (0-0.2); BASOPHIL % 0.3 % (0.0-2.0); HEMOGLOBIN 14.8 GM/DL (13.0-17.0); LYMPH % 13.8 % (9.0-44.0); LYMPHOCYTE # 2.9 TH/MM3 (1.0-4.8); MEAN CELL VOLUME 84.2 FL (80.0-100.0); MEAN CORPUSCULAR HEMOGLOBIN 27.7 PG (27.0-34.0); MEAN CORPUSCULAR HGB CONC 32.9 % (32.0-36.0); MEAN PLATELET VOLUME 7.8 FL (7.0-11.0); MONO % 5.2 % (0.0-8.0); MONOCYTE # 1.1 TH/MM3 (0-0.9); NEUT % 80.7 % (16.0-70.0); PLATELET COUNT 421 TH/MM3 (150-450); RED BLOOD COUNT 5.35 MIL/MM3 (4.50-5.90); RED CELL DISTRIBUTION WIDTH 15.2 % (11.6-17.2); WHITE BLOOD COUNT 20.8 TH/MM3 (4.0-11.0)
[2018-01-09] MEDS ORDERED: AMIODARONE INJ 450 MG in SODIUM CHLOR 0.9% (EXCEL) INJ 250 ML IV PRN (01:30)
--- NOTE | 2018-01-09 01:39 | PD ---
HPI Chief Complaint: Chest Pain Time Seen by Provider: 00:33 Travel History International Travel<30 days: No Contact w/Intl Traveler<30days: No Traveled to known affect area: No History of Present Illness HPI 67-year-old male presents to the emergency department by private transportation for severe chest pain shortness of breath history of COPD currently undergoing antibiotic therapy through his heater tender daily for 2 weeks. Pain radiates into his neck and jaw and rates his pain 10/10 intensity does not radiate into the mid scapular area extremities or abdomen. Patient took nitroglycerin prior to arrival to the emergency department without symptom relief. Patient denies nausea vomiting. Patient rates pain 10/10 intensity. Patient is unable to identify exacerbating or alleviating factors. Patient takes Eliquis for history of atrial fibrillation and has been compliant with this medication. PFSH Past Medical History Narrative Medical Atrial fibrillation COPD CHF CVA CAD chronic pain syndrome; no tobacco use; nursing notes reviewed Hx Anticoagulant Therapy: Yes Anemia: Yes Arthritis: Yes Asthma: Yes Atrial Fibrillation: Yes Autoimmune Disease: No Anxiety: Yes Depression: Yes Heart Rhythm Problems: Yes Cancer: Yes (PROSTATE 2008, L BREAST 2006--ALSO REMOVED LYMPH NODES, COLON 2002 ) Cardiac Catheterization: Yes Cardiovascular Problems: Yes High Cholesterol: Yes Chemotherapy: No Chest Pain: Yes Congestive Heart Failure: Yes COPD: Yes Cerebrovascular Accident: Yes Coronary Artery Disease: Yes Diabetes: Yes Patient Takes Glucophage: No Diminished Hearing: Yes (bilateral aids) Endocrine: Yes Fibromyalgia: Yes Gastrointestinal Disorders: Yes (OCC ACID REFLUX) GERD: Yes Glaucoma: No Genitourinary: Yes Headaches: Yes Hepatitis: No Hiatal Hernia: Yes Hypertension: Yes Immune Disorder: No Implanted Vascular Access Dvce: Yes Kidney Stones: Yes Musculoskeletal: Yes Neurologic: Yes Psychiatric: Yes Reproductive: No Respiratory: Yes (COPD ASTHMA) Integumentary: No Immunizations Current: Yes Migraines: Yes Pancreatitis: Yes Pneumonia: Yes Radiation Therapy: No Renal Failure: No Seizures: No Sleep Apnea: No Thyroid Disease: Yes Ulcer: Yes Past Surgical History Abdominal Surgery: Yes (HERNIA REPAIR X 2; COLON RESECTION R/T DIVERTICULITIS, COLON CA 2002) Appendectomy: Yes Body Medical Devices: loop recorder, CAGE AND SCREWS L5-S1, CARDIAC STENT Cardiac Surgery: Yes (ABLATION X 2 2015) Cholecystectomy: Yes Coronary Artery Bypass Graft: No Coronary Stent: Yes (X1) Ear Surgery: No Endocrine Surgery: No Eye Surgery: No Genitourinary Surgery: Yes (PROSTATECTOMY 2008) Gynecologic Surgery: No Hysterectomy: No Neurologic Surgery: Yes (BACK/NECK SURGERY) Oral Surgery: No Prostatectomy: Yes Thoracic Surgery: Yes (L BREAST 2006--ALSO REMOVED LYMPH NODES) Other Surgery: Yes (NECK AND BACK-L5, S1, ABLATIONX2 2015) Family History Family Myocardial Infarction: Yes Social History Alcohol Use: Yes (Occ) Tobacco Use: No (2003 QUIT) Substance Use: No Allergies-Medications (Allergen,Severity, Reaction): Coded Allergies: adhesive (Unverified Allergy, Severe, Rash, 10/30/17) atorvastatin (Unverified Allergy, Severe, MUSCLE WEAKNESS, 10/30/17) pravastatin (Unverified Allergy, Severe, MUSCLE WEAKNESS, 10/30/17) rosuvastatin (Unverified Allergy, Severe, MUSCLE WEAKNESS, 10/30/17) morphine (Unverified Adverse Reaction, Severe, BECOMES VERY AGGRESSIVE, 10/30/17) Reported Meds & Prescriptions Reported Meds & Active Scripts Active Reported Novolog Inj (Insulin Aspart) 100 Unit/Ml Inj 25 Units SQ HS Percocet (Oxycodone-Acetaminophen) 10-325 mg Tab 1 Tab PO Q6H PRN Coq10 (Coenzyme Q10 (Ubidecarenone)) 30 Mg Cap 30 Mg PO DAILY Isosorbide Mononitrate 20 Mg Tab 30 Mg PO DAILY Take 2 doses [address]. [address] (Duloxetine HCl) 60 Mg Capdr 60 Mg PO DAILY Metoprolol Tartrate 75 Mg Tab 75 Mg PO BID Losartan-Hydrochlorothiazide 100-25 Mg Tab 1 Tab PO DAILY Pantoprazole (Pantoprazole Sodium) 40 Mg Tab 40 Mg PO HS Nitroglycerin SL (Nitroglycerin) 0.4 Mg Subl 0.4 Mg SL DIRECTED PRN ONE TABLET UNDER THE TONGUE NEEDED FOR CHEST PAIN, MAY REPEAT EVERY FIVE MINUTES FOR A TOTAL OF 3 DOSES OR CALL 911 IF NO RELIEF Carafate (Sucralfate) 1 Gm Tab 1 Gm PO BID On empty stomach Eliquis (Apixaban) 5 Mg Tab 5 Mg PO BID Albuterol Neb (Albuterol Sulfate) 2.5 Mg/0.5 Ml Neb 2.5 Mg NEB Q6HR NEB PRN Note: The Albuterol Sulfate Inhalation Solution is concentrated and must be diluted. Read complete instructions carefully before using. Novolin N Inj (Insulin Human NPH) 100 Unit/Ml Inj 100 Units SQ BID Gabapentin 600 Mg Tab 600 Mg PO BID Atorvastatin (Atorvastatin Calcium) 10 Mg Tab 10 Mg PO HS Glimepiride 1 Mg Tab 2 Mg PO DAILY Take with breakfast or first main meal Amlodipine (Amlodipine Besylate) 5 Mg Tab 5 Mg PO DAILY Review of Systems Except as stated in HPI: all other systems reviewed are Neg Physical Exam Narrative GENERAL: Well-developed obese male in acute distress with mild diaphoresis SKIN: Warm and dry. HEAD: Normocephalic. EYES: No scleral icterus. No injection or drainage. NECK: Supple, trachea midline. No JVD or lymphadenopathy. CARDIOVASCULAR: Increased irregularly irregular rate and rhythm without murmurs , gallops, or rubs. RESPIRATORY: Breath sounds equal bilaterally. No accessory muscle use. GASTROINTESTINAL: Abdomen soft, non-tender, nondistended. MUSCULOSKELETAL: No cyanosis, or edema. BACK: Nontender without obvious deformity. No CVA tenderness. Data Data Last Documented VS Vital Signs Date Time Temp Pulse Resp B/P (MAP) Pulse Ox O2 Delivery O2 Flow Rate FiO2 01/09/18 02:19 75 18 162/74 (103) 95 Nasal Cannula 4.00 Orders Orders Electrocardiogram (01/09/18 00:33) Basic Metabolic Panel (Bmp) (01/09/18 00:33) Ckmb (Isoenzyme) Profile (01/09/18 00:33) Complete Blood Count With Diff (01/09/18 00:33) Magnesium (Mg) (01/09/18 00:33) Prothrombin Time / Inr (Pt) (01/09/18 00:33) Act Partial Throm Time (Ptt) (01/09/18 00:33) Troponin I (01/09/18 00:33) Ecg Monitoring (01/09/18 00:33) Bilateral Bp Monitoring (01/09/18 00:33) Iv Access Insert/Monitor (01/09/18 00:33) Oximetry (01/09/18 00:33) Oxygen Administration (01/09/18 00:33) Aspirin Chew (Aspirin Chew) (01/09/18 00:45) Sodium Chloride 0.9% Flush (Ns Flush) (01/09/18 00:45) Nitroglycerin Sl (Nitrostat Sl) (01/09/18 00:45) Sodium Chlor 0.9% 1000 Ml Inj (Ns 1000 M (01/09/18 00:45) ^ Medication Alert (01/09/18 00:33) ^ Discontinue (01/09/18 00:33) Dextrose 5% In Wate... W/Amiodarone Inj (01/09/18 00:43) Dextrose 5% In Wate... W/Amiodarone Inj (01/09/18 00:33) Vital Signs (Adult) JUAQUIN.Q4H (01/09/18 00:33) Blood Culture (01/09/18 00:35) Type And Screen (01/09/18 00:35) Hydromorphone Pf Inj (Dilaudid Pf Inj) (01/09/18 00:45) Ondansetron Inj (Zofran Inj) (01/09/18 00:45) Ondansetron Inj (Zofran Inj) (01/09/18 00:39) Metoclopramide Inj (Reglan Inj) (01/09/18 00:45) Hydromorphone Pf Inj (Dilaudid Pf Inj) (01/09/18 01:00) Nitroglycerin 2% Oint (Nitroglycerin 2% (01/09/18 01:00) Chest, Single Ap (01/09/18 00:33) Metoprolol Tartrate Inj (Lopressor Inj) (01/09/18 01:15) Sodium Chlor 0.9% (... W/Amiodarone Inj (01/09/18 01:30) Piperacil-Tazo 4.5 Gm Premix (Zosyn 4.5 (01/09/18 01:45) Lactic Acid (01/09/18 01:39) CKMB (01/09/18 01:00) CKMB% (01/09/18 01:00) Metoprolol Tartrate (Lopressor) (01/09/18 03:15) Admit Order (Ed Use Only) (01/09/18 ) Deputy Juvenile Officer / Telemetry JUAQUIN.Q8H (01/09/18 03:25) Activity Bed Rest (01/09/18 03:25) Notify Dr: Other (01/09/18 03:25) Labs Laboratory Tests Test 01/09/18 01:00 01/09/18 02:30 White Blood Count 20.8 TH/MM3 Red Blood Count 5.35 MIL/MM3 Hemoglobin 14.8 GM/DL Hematocrit 45.0 % Mean Corpuscular Volume 84.2 FL Mean Corpuscular Hemoglobin 27.7 PG Mean Corpuscular Hemoglobin Concent 32.9 % Red Cell Distribution Width 15.2 % Platelet Count 421 TH/MM3 Mean Platelet Volume 7.8 FL Neutrophils (%) (Auto) 80.7 % Lymphocytes (%) (Auto) 13.8 % Monocytes (%) (Auto) 5.2 % Eosinophils (%) (Auto) 0.0 % Basophils (%) (Auto) 0.3 % Neutrophils # (Auto) 16.8 TH/MM3 Lymphocytes # (Auto) 2.9 TH/MM3 Monocytes # (Auto) 1.1 TH/MM3 Eosinophils # (Auto) 0.0 TH/MM3 Basophils # (Auto) 0.1 TH/MM3 CBC Comment DIFF FINAL Differential Comment Prothrombin Time 9.9 SEC Prothromb Time International Ratio 1.0 RATIO Activated Partial Thromboplast Time 22.1 SEC Blood Urea Nitrogen 23 MG/DL Creatinine 1.61 MG/DL Random Glucose 369 MG/DL Calcium Level 8.9 MG/DL Magnesium Level 2.1 MG/DL Sodium Level 138 MEQ/L Potassium Level 3.9 MEQ/L Chloride Level 103 MEQ/L Carbon Dioxide Level 19.8 MEQ/L Anion Gap 15 MEQ/L Estimat Glomerular Filtration Rate 43 ML/MIN Total Creatine Kinase 160 U/L Creatine Kinase MB 3.5 NG/ML Troponin I 0.21 NG/ML Lactic Acid Level 3.2 mmol/L [facility] Medical Decision Making Medical Screen Exam Complete: Yes Emergency Medical Condition: Yes Medical Record Reviewed: Yes Interpretation(s) EKG: Atrial fibrillation with rapid ventricular rate rate 190 ST depression concerning for subendocardial injury no acute ST elevation EKG #2 post metoprolol and amiodarone; sinus rhythm rate [address] elevation ST segment flattening with minimal depression 1 and aVL Troponin I 0.21, elevated Last Impressions Chest X-Ray 01/09/18 0033 Signed Impressions: Service Date/Time: Tuesday, January 09, 2018 00:44 - CONCLUSION: Mild left base atelectasis. Otherwise negative. Priyank Tang MD CBC & BMP Diagram 01/09/18 01:00 Calcium Level 8.9, Magnesium Level 2.1 Vital Signs Date Time Temp Pulse Resp B/P (MAP) Pulse Ox O2 Delivery O2 Flow Rate FiO2 01/09/18 02:19 75 18 162/74 (103) 95 Nasal Cannula 4.00 01/09/18 01:24 143 21 164/100 (121) 94 Nasal Cannula 3.00 01/09/18 00:55 190 176/97 01/09/18 00:37 97 Nasal Cannula 3.00 01/09/18 00:33 177 28 144/101 (115) 97 Nasal Cannula 3.00 01/09/18 00:33 195 28 97 Room Air 3.00 01/09/18 00:29 178 28 144/101 (115) 99 Lactic acid elevated at 3.2 Troponin I 0.21 elevated Differential Diagnosis Chest pain, ACS, myocardial infarction, CHF, A. fib RVR, electrolyte disturbance , coagulopathy Narrative Course Patient placed on surveillance system monitor with continuous pulse oximetry IV access obtained specimens collected and sent for resulting amiodarone bolus administered supplemental oxygen administered patient given Dilaudid 1 mg IV for chronic pain syndrome along with Zofran 4 mg IV Patient with episode of vomiting administer Reglan 10 mg IV Patient complains of chronic pain syndrome additional dose of Dilaudid 1 mg IV administered Patient administered metoprolol 5 mg IV @ 01:32 converted to NSR 80; ekg ordered, EKG #2: Normal sinus rhythm rate [address] elevation injury pattern or ectopy noted Patient noted to have leukocytosis is receiving IV steroids daily along with IV Levaquin 2 weeks Troponin I is elevated at 0.21 Patient's case discussed with 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 Thompson recommends increasing patient's daily metoprolol from 75 mg twice daily to 100 mg twice daily with first dose now; aware that amiodarone infusion not administered Patient's case discussed with on-call medicine for admission Critical Care Narrative Aggregate critical care time was 35 minutes. Time to perform other separately billable procedures was not included in the critical care time. My time did not include minutes spent treating any other patients simultaneously or on activities that did not directly contribute to the patient's treatment. The services I provided to this patient were to treat and/or prevent clinically significant deterioration that could result in: Myocardial infarction, arrhythmia, respiratory arrest, I provided critical care services requiring my management, as noted below: Chart data review, documentation time, medication orders and management, vital sign assessments/reviewing monitor data, ordering and reviewing lab tests, ordering and interpreting/reviewing x-rays and diagnostic studies, care of the patient and discussion of the patient with the admitting physicians. 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
[2018-01-09] MEDS ORDERED: PIPERACIL-TAZO 4.5 GM PREMIX 100 ML IV ONE (01:45)
[2018-01-09 01:47] LABS: TROPONIN I 0.21 NG/ML (0.02-0.05)
[2018-01-09 02:02] LABS: BICARBONATE 19.8 MEQ/L (21.0-32.0); BLOOD UREA NITROGEN 23 MG/DL (7-18); CALCIUM 8.9 MG/DL (8.5-10.1); CHLORIDE 103 MEQ/L (98-107); CREATININE 1.61 MG/DL (0.60-1.30); GLOMERULAR FILTRATION RATE 43 ML/MIN (>89); GLUCOSE,RANDOM 369 MG/DL (74-106); MAGNESIUM 2.1 MG/DL (1.5-2.5); SODIUM (NA) 138 MEQ/L (136-145)
[2018-01-09 02:11] LABS: PROTHROMBIN TIME - PATIENT 9.9 SEC (9.8-11.6)
[2018-01-09] MEDS ORDERED: METOPROLOL TARTRATE 100 MG TAB PO ONE (03:15)
[2018-01-09] MEDS ORDERED: SODIUM CHLOR 0.9% 1000 ML INJ 1,000 ML IV ONE (03:45)
[2018-01-09] MEDS ORDERED: NITROGLYCERIN 0.4 MG SL 25 TABS/BTL SL PRN (03:45)
[2018-01-09] MEDS ORDERED: VANCOMYCIN INJ 1,500 MG in SODIUM CHLORID 0.9% 500 ML INJ 500 ML IV ONE (03:45)
[2018-01-09] MEDS ORDERED: SODIUM CHLORIDE 0.9% FLUSH 10 ML FLUSH IV FLUSH PRN (03:45)
[2018-01-09] MEDS ORDERED: ACETAMINOPHEN 500 MG CPLT PO PRN (03:45)
[2018-01-09] MEDS ORDERED: DEXTROSE 50% IN WATER 50 ML VIAL(D50) IV PUSH PRN ×2 (04:00→10:30)
[2018-01-09] MEDS ORDERED: PROCHLORPERAZINE INJ 10 MG/2 ML VIAL IV PUSH PRN (04:00)
[2018-01-09] MEDS ORDERED: GLUCAGON 1 MG/ML VIAL OTHER PRN ×2 (04:00→10:30)
[2018-01-09 06:41] LABS: TROPONIN I 5.56 NG/ML (0.02-0.05)
[2018-01-09] MEDS ORDERED: ISOSORBIDE MONONITRATE 20 MG TAB PO SCH (07:00)
[2018-01-09] MEDS ORDERED: INSULIN ASPART SUPPLEMENTAL SCALE SQ SCH (08:00)
[2018-01-09] MEDS: INSULIN HUMAN NPH 1,000 UNITS/10 ML VIAL SQ SCH ×2 (08:00→17:24)
[2018-01-09] MEDS: HEPARIN-D5W 25,000 U/250 ML 250 ML IV PRN ×2 (08:20→18:52)
[2018-01-09] MEDS: HYDROCHLOROTHIAZIDE 25 MG TAB PO SCH (08:23)
[2018-01-09] MEDS: SUCRALFATE 1 GM TAB PO SCH ×2 (08:23→17:50)
[2018-01-09] MEDS: DULoxetine HCl DR 60 MG CAP PO SCH (08:23)
[2018-01-09] MEDS: LOSARTAN 50 MG TAB PO SCH (08:23)
[2018-01-09] MEDS: amLODIPine BESYLATE 5 MG TAB PO SCH (08:23)
[2018-01-09] MEDS: GABAPENTIN 300 MG CAP PO SCH ×2 (08:23→21:08)
[2018-01-09] MEDS: SODIUM CHLORIDE 0.9% FLUSH 10 ML FLUSH IV FLUSH SCH ×2 (08:30→21:00)
[2018-01-09] MEDS ORDERED: NON-FORMULARY DRUG (Losartan-Hydrochlorothiazide 1 TAB) PO SCH (09:00)
[2018-01-09] MEDS ORDERED: APIXABAN 5 MG TABLET PO SCH (09:00)
[2018-01-09 09:49] LABS: HEMATOCRIT 37.2 % (39.0-51.0); HEMOGLOBIN 12.4 GM/DL (13.0-17.0); MEAN CELL VOLUME 82.9 FL (80.0-100.0); MEAN CORPUSCULAR HEMOGLOBIN 27.7 PG (27.0-34.0); MEAN CORPUSCULAR HGB CONC 33.4 % (32.0-36.0); MEAN PLATELET VOLUME 7.6 FL (7.0-11.0); PLATELET COUNT 320 TH/MM3 (150-450); RED BLOOD COUNT 4.48 MIL/MM3 (4.50-5.90); RED CELL DISTRIBUTION WIDTH 15.1 % (11.6-17.2); WHITE BLOOD COUNT 15.8 TH/MM3 (4.0-11.0)
[2018-01-09 09:54] LABS: PROTHROMBIN TIME - PATIENT 10.3 SEC (9.8-11.6)
--- NOTE | 2018-01-09 10:19 | HHI.HP ---
HPI Service [facility] Primary Care Physician Frederick Jean MD Admission Diagnosis chest pain/acs; afib rvr; copd Diagnoses: (1) Non-ST elevation IA (NSTEMI) (2) Atrial fibrillation with RVR (3) Leukocytosis Chief Complaint: Chest pain Travel History International Travel<30 Days: No Contact w/Intl Traveler <30 Da: No Traveled to Known Affected Are: No History of Present Illness 67-year-old male with a history of diabetes type 2, atrial fibrillation and on Eliquis, hypertension, COPD, prior cardiac stent placed in 1995 presented to the ED for evaluation of an acute onset of substernal chest pain described as squeezing, stabbing with radiation to his neck and jaw without any associated diaphoresis and shortness of breath around midnight as patient was watching TV. The Pain was rated 10 out of 10 in intensity. When patient initially presented to the ED, he had no elevated cardiac enzymes however a second sets was high. Patient was found to be in A. fib RVR but is currently rate controlled. He does have a history of COPD for which he sees pulmonary medicine, and patient is currently on p.o. antibiotics. He has no GI bleed. He was seen by cardiology, and the case was discussed with Dr. Thompson. Review of Systems Except as stated in HPI: all other systems reviewed are Neg Past Family Social History Past Medical History Coronary disease Chronic back pain COPD Anemia Diabetes mellitus Past Surgical History cardiac catheterization with stent placement and loop recorder prostatectomy e Multiple back and neck surgeries, other orthopedic surgery Left patellar surgery Reported Medications Novolog Inj (Insulin Aspart) 100 Unit/Ml Inj 25 Units SQ HS Percocet (Oxycodone-Acetaminophen) 10-325 mg Tab 1 Tab PO Q6H PRN Coq10 (Coenzyme Q10 (Ubidecarenone)) 30 Mg Cap 30 Mg PO DAILY Isosorbide Mononitrate 20 Mg Tab 30 Mg PO DAILY Take 2 doses [address]. [address] (Duloxetine HCl) 60 Mg Capdr 60 Mg PO DAILY Metoprolol Tartrate 75 Mg Tab 75 Mg PO BID Losartan-Hydrochlorothiazide 100-25 Mg Tab 1 Tab PO DAILY Pantoprazole (Pantoprazole Sodium) 40 Mg Tab 40 Mg PO HS Nitroglycerin SL (Nitroglycerin) 0.4 Mg Subl 0.4 Mg SL DIRECTED PRN ONE TABLET UNDER THE TONGUE NEEDED FOR CHEST PAIN, MAY REPEAT EVERY FIVE MINUTES FOR A TOTAL OF 3 DOSES OR CALL 911 IF NO RELIEF Carafate (Sucralfate) 1 Gm Tab 1 Gm PO BID On empty stomach Eliquis (Apixaban) 5 Mg Tab 5 Mg PO BID Albuterol Neb (Albuterol Sulfate) 2.5 Mg/0.5 Ml Neb 2.5 Mg NEB Q6HR NEB PRN Note: The Albuterol Sulfate Inhalation Solution is concentrated and must be diluted. Read complete instructions carefully before using. Novolin N Inj (Insulin Human NPH) 100 Unit/Ml Inj 100 Units SQ BID Gabapentin 600 Mg Tab 600 Mg PO BID Atorvastatin (Atorvastatin Calcium) 10 Mg Tab 10 Mg PO HS Glimepiride 1 Mg Tab 2 Mg PO DAILY Take with breakfast or first main meal Amlodipine (Amlodipine Besylate) 5 Mg Tab 5 Mg PO DAILY Allergies: Coded Allergies: adhesive (Unverified Allergy, Severe, Rash, 10/30/17) atorvastatin (Unverified Allergy, Severe, MUSCLE WEAKNESS, 10/30/17) pravastatin (Unverified Allergy, Severe, MUSCLE WEAKNESS, 10/30/17) rosuvastatin (Unverified Allergy, Severe, MUSCLE WEAKNESS, 10/30/17) morphine (Unverified Adverse Reaction, Severe, BECOMES VERY AGGRESSIVE, 10/30/17) Family History Father from lung cancer at 56, mother at 70 Family history also positive for diabetes, heart disease Social History 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, 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, occasional alcohol, Physical Exam Vital Signs Vital Signs Date Time Temp Pulse Resp B/P (MAP) Pulse Ox O2 Delivery O2 Flow Rate FiO2 01/09/18 08:12 97.5 01/09/18 08:09 52 16 150/64 (92) 96 Nasal Cannula 4.00 01/09/18 05:36 98.8 62 18 135/65 (88) 96 Nasal Cannula 4.00 01/09/18 02:19 75 18 162/74 (103) 95 Nasal Cannula 4.00 01/09/18 01:24 143 21 164/100 (121) 94 Nasal Cannula 3.00 01/09/18 00:55 190 176/97 01/09/18 00:37 97 Nasal Cannula 3.00 01/09/18 00:33 177 28 144/101 (115) 97 Nasal Cannula 3.00 01/09/18 00:33 195 28 97 Room Air 3.00 01/09/18 00:29 178 28 144/101 (115) 99 Physical Exam GENERAL: This is a well-nourished, well-developed obese patient, in no apparent distress. SKIN: No rashes, ecchymoses or lesions. Cool and dry. HEAD: Atraumatic. Normocephalic. No temporal or scalp tenderness. EYES: Pupils equal round and reactive. Extraocular motions intact. No scleral icterus. No injection or drainage. ENT: Nose without bleeding, purulent drainage or septal hematoma. Throat without erythema, tonsillar hypertrophy or exudate. Uvula midline. Airway patent. NECK: Trachea midline. No JVD or lymphadenopathy. Supple, nontender, no meningeal signs. CARDIOVASCULAR: Irregular regular rate and rhythm without murmurs, gallops, or rubs. RESPIRATORY: Clear to auscultation. Breath sounds equal bilaterally. No wheezes , rales, or rhonchi. GASTROINTESTINAL: Abdomen soft, non-tender, nondistended. No hepato-splenomegaly , or palpable masses. No guarding. MUSCULOSKELETAL: Extremities without clubbing, cyanosis, or edema. No joint tenderness, effusion, or edema noted. No calf tenderness. Negative Homans sign bilaterally. NEUROLOGICAL: Awake and alert. Cranial nerves II through XII intact. Motor and sensory grossly within normal limits. Five out of 5 muscle strength in all muscle groups. Normal speech. Laboratory Laboratory Tests Test 01/09/18 01:00 01/09/18 02:30 01/09/18 05:30 01/09/18 09:30 White Blood Count 20.8 15.8 Red Blood Count 5.35 4.48 Hemoglobin 14.8 12.4 Hematocrit 45.0 37.2 Mean Corpuscular Volume 84.2 82.9 Mean Corpuscular Hemoglobin 27.7 27.7 Mean Corpuscular Hemoglobin Concent 32.9 33.4 Red Cell Distribution Width 15.2 15.1 Platelet Count 421 320 Mean Platelet Volume 7.8 7.6 Neutrophils (%) (Auto) 80.7 Lymphocytes (%) (Auto) 13.8 Monocytes (%) (Auto) 5.2 Eosinophils (%) (Auto) 0.0 Basophils (%) (Auto) 0.3 Neutrophils # (Auto) 16.8 Lymphocytes # (Auto) 2.9 Monocytes # (Auto) 1.1 Eosinophils # (Auto) 0.0 Basophils # (Auto) 0.1 CBC Comment DIFF FINAL Differential Comment Prothrombin Time 9.9 10.3 Prothromb Time International Ratio 1.0 1.0 Activated Partial Thromboplast Time 22.1 22.1 Blood Urea Nitrogen 23 Creatinine 1.61 Random Glucose 369 Calcium Level 8.9 Magnesium Level 2.1 Sodium Level 138 Potassium Level 3.9 Chloride Level 103 Carbon Dioxide Level 19.8 Anion Gap 15 Estimat Glomerular Filtration Rate 43 Total Creatine Kinase 160 321 Creatine Kinase MB 3.5 32.4 Troponin I 0.21 5.56 Lactic Acid Level 3.2 3.2 Creatine Kinase MB % 10.1 Date/Time Source Procedure Growth Status 01/09/18 01:15 Blood Peripheral Aerobic Blood Culture Pending Received 01/09/18 01:15 Blood Peripheral Anaerobic Blood Culture Pending Received Result Diagram: 01/09/18 0930 01/09/18 0100 Imaging Last Impressions Chest X-Ray 01/09/18 0033 Signed Impressions: Service Date/Time: Tuesday, January 09, 2018 00:44 - CONCLUSION: Mild left base atelectasis. Otherwise negative. Priyank Tang MD Septic Shock Reassessment Septic shock perfusion: reassessment completed Caprini VTE Risk Assessment Caprini VTE Risk Assessment: Mod/High Risk (score >= 2) Caprini Risk Assessment Model Point Value = 1 Point Value = 2 Point Value = 3 Point Value = 5 Age 41-60 Minor surgery BMI > 25 kg/m2 Swollen legs Varicose veins or History of unexplained or recurrent spontaneous Oral contraceptives or hormone replacement Sepsis (< 1 month) Serious lung disease, including pneumonia (< 1 month) Abnormal pulmonary function Acute myocardial infarction Congestive heart failure (< 1 month) History of inflammatory bowel disease Medical patient at bed rest Age 61-74 Arthroscopic surgery Major open surgery (> 45 min) Laparoscopic surgery (> 45 min) Malignancy Confined to bed (> 72 hours) Immobilizing plaster cast Central venous access Age >= 75 History of VTE Family history of VTE Factor V Leiden Prothrombin [id number] Lupus anticoagulant Anticardiolipin antibodies Elevated serum homocysteine Heparin-induced thrombocytopenia Other congenital or acquired thrombophilia Stroke (< 1 month) Elective arthroplasty Hip, pelvis, or leg fracture Acute spinal cord injury (< 1 month) Prophylaxis Regimen Total Risk Factor Score Risk Level Prophylaxis Regimen 0-1 Low Early ambulation 2 Moderate Order ONE of the following: *Sequential Compression Device (SCD) *Heparin 5000 units SQ BID 3-4 Higher Order ONE of the following medications: *Heparin 5000 units SQ TID *Enoxaparin/Lovenox 40 mg SQ daily (WT < 150 kg, CrCl > 30 mL/min) *Enoxaparin/Lovenox 30 mg SQ daily (WT < 150 kg, CrCl > 10-29 mL/min) *Enoxaparin/Lovenox 30 mg SQ BID (WT < 150 kg, CrCl > 30 mL/min) AND/OR *Sequential Compression Device (SCD) 5 or more Highest Order ONE of the following medications: *Heparin 5000 units SQ TID (Preferred with Epidurals) *Enoxaparin/Lovenox 40 mg SQ daily (WT < 150 kg, CrCl > 30 mL/min) *Enoxaparin/Lovenox 30 mg SQ daily (WT < 150 kg, CrCl > 10-29 mL/min) *Enoxaparin/Lovenox 30 mg SQ BID (WT < 150 kg, CrCl > 30 mL/min) AND *Sequential Compression Device (SCD) Assessment and Plan Problem List: (1) Non-ST elevation IA (NSTEMI) ICD Code: I21.4 - Non-ST elevation (NSTEMI) myocardial infarction (2) Atrial fibrillation with RVR ICD Code: I48.91 - Unspecified atrial fibrillation Status: Acute Assessment and Plan 67-year-old man with Non-ST elevation IA Currently on heparin drip Cardiology has been consulted, with whom the case has been discussed and plan for left heart catheterization today Continue with ACS ruled out per protocol with serial cardiac enzyme and EKG Chest x-ray noted and reviewed by me without any cardiopulmonary disease Check 2D echo Atrial fibrillation with RVR Currently rate controlled since admission Resume Eliquis when okay with cardiology, continue with Lopressor 100 mg every 12 hours Hypertension Initially labile BP, however currently normotensive on Lopressor 100 mg every 12 hours Continue with Norvasc, hydrochlorothiazide and Cozaar Diabetes type 2 Hold oral hypoglycemic agents and switched to medium ISS Resume Levemir at at bedtime Other chronic medical conditions Resume outpatient medications Code Status Full code Discussed Condition With Patient, Dr. Thompson cardiology Physician Certification 2 Midnight Certification Type: Admission for Inpatient Services Order for Inpatient Services The services are ordered in accordance with Medicare regulations or non- Medicare payer requirements, as applicable. In the case of services not specified as inpatient-only, they are appropriately provided as inpatient services in accordance with the 2-midnight benchmark. Estimated LOS (days): 2 days is the estimated time the patient will need to remain in the hospital, assuming treatment plan goals are met and no additional complications. Post-Hospital Plan: Not yet determined Tavares Lopez MD Jan 09, 2018 10:19
[2018-01-09] MEDS ORDERED: HEPARIN-NS/PF FLUSH BAG 2,000 ML IV FLUSH ONE (11:38)
[2018-01-09] MEDS ORDERED: HEPARIN SODIUM - IV 10,000 UNITS/10 ML VIAL ONE (11:38)
[2018-01-09] MEDS ORDERED: LIDOCAINE HCL 1% PF 30 ML VIAL ONE (11:49)
--- NOTE | 2018-01-09 12:09 | EKG ---
Date Performed: 01/09/2018 Time Performed: 07:58:46 PTAGE: 67 years EKG: ECTOPIC ATRIAL BRADYCARDIA MARKED LEFT AXIS DEVIATION ABNORMAL ECG PREVIOUS TRACING : 01/09/2018 05.41 Since the previous tracing, no significant change noted DOCTOR: Tiara Ryan Interpretating Date/Time 01/09/2018 12:08:17
--- NOTE | 2018-01-09 12:10 | EKG ---
Date Performed: 01/09/2018 Time Performed: 05:41:54 PTAGE: 67 years EKG: ECTOPIC ATRIAL BRADYCARDIA ABNORMAL RHYTHM ECG PREVIOUS TRACING : 01/09/2018 01.34 Compared to previous tracing, rate slower DOCTOR: Tiara Ryan Interpretating Date/Time 01/09/2018 12:09:09
[2018-01-09] MEDS ORDERED: CLOPIDOGREL 300 MG TAB ONE (13:46)
[2018-01-09] MEDS ORDERED: SODIUM CHLOR 0.9% 1000 ML INJ 1,000 ML IV SCH (14:01)
--- NOTE | 2018-01-09 14:01 | CATHPROC ---
[facility] HIS Report Study Information Study Number Admission Scheduled Start Study Start [id number] Jan 09 2018 3:27AM 01/09/2018 Jan 09 2018 11:39AM [place] [facility] Cardiac Catheterization Admit Source Facility Department Emergency department [facility] - Emission Technician Physician and Clinical Staff Initial Zelalem Griffiths Filemaker Developer Alondra Caba RN Filemaker Developertara Campos RN, Merlin Recorder Yen Abel ,RT(R) Scrub Farhan Vazquez,RT(R) Procedures Performed Procedure Location (Site) Vessel Name Coronary Angiograms LCA Left Coronary Coronary Angiograms RCA Right Coronary Drug Eluting Inflatio RCA Mid Right Coronary L Heart Cath PTCA RCA Mid Right Coronary Wire insertion Fem Art (right) Femoral Art Equipment Time Quality Lead Description Size Mfg Part Number Used/Scraped [id number] 13:07 [employer] WIRE, ASAHI GRANDSLAM 300CM 300CM Used *[id number] WIRE, BALANCE MIDDLEWEIGHT [id number] 12:40 [employer] 190CM Used 190CM *[id number] 12:59 [employer] WIRE, DOC EXTENSION 145CM 145CM [id number] *[id number] Used TRANSDUCER, TRUWAVE [id number] 11:40 SHETTY VERA * Used W/STOCKCOCK *[id number] 13:38 CARDIVA MEDICAL VASCADE, FR6 CLOSURE SYSTEM FR 6\7 Used *[id number] INTRODUCER SET, 11:40 [employer] FR 5 [id number] *[id number] Used MICROPUNCTURE STIFF [phone] *[id number] *[id number] 13:36 DAIG/ST. ANJEL MEDICAL ANGIOSEAL, FR6 VIP FR 6 Used *[id number] 11:40 Onsite Care INDUSTRIES PACK, CCL CUSTOM * Used *[id number] BALLOON, 1.25 X 6MM SPRINTER [id number] 13:05 MEDTRONIC 6MM Used LEGEND OTW *[id number] 12:45 MEDTRONIC BALLOON, 2.0 X 12MM EUPHORA 12MM Used *[id number] BALLOON, 2.75 X 15MM NC [id number] 13:25 MEDTRONIC 15MM Used EUPHORA *[id number] 11:53 MEDTRONIC JL 4.0 DXTERITY CATHETER FR 5 Used *[id number] 13:20 MEDTRONIC STENT, 2.5 38MM JASMIN 2.5 38MM [id number] 13:13 [employer] MEDICAL 30 LAYNE INDEFLATOR Used *[id number] 11:40 Mod[employer]oth WIRE, 3MMJ .035 180CM 180CM Used *[id number] 11:40 NAMIC MANIFOLD, 4 PORT * Used *[id number] 11:40 NYCOMED OMNIPAQUE, 350 MG, 150ML 150ML [id number] Used [id number] 11:40 PATEL MEDICAL BLANKET,WARM AIR CCL * Used *[id number] 11:40 TERUMO MEDICAL SHEATH, FR5 TERUMO (10CM) FR 5 Used *[id number] 12:21 TERUMO MEDICAL SHEATH, FR5 TERUMO (10CM) FR 5 Used *[id number] 12:39 TERUMO MEDICAL SHEATH, FR6 TERUMO (10CM) FR 6 Used *[id number] Equipment Model, Serial, Lot Number and Expiration Data Description Model Number Serial Number Lot Number Expiration Date ANGIOSEAL, FR6 VIP [id number] 08-23-2018 BALLOON, 2.0 X 12MM EUPHORA [id number] 08-07-2019 BALLOON, 2.75 X 15MM NC [id number] 08-31-2019 EUPHORA JL 4.0 DXTERITY CATHETER [id number] 06-13-2020 STENT, 2.5 38MM JASMIN [id number] 11-09-2019 History: Current Medications Medication Dosage/Unit Route Frequency Last Date/Time Taken Statins (any) Beta Raeann History: Allergies Allergy Reaction morphine BECOMES VERY AGGRESSIVE adhesive Rash pravastatin MUSCLE WEAKNESS atorvastatin MUSCLE WEAKNESS rosuvastatin MUSCLE WEAKNESS History: Risk Factors Family History of Hypertension Previous MD Previous Heart Failure Premature CAD Yes No No No Prior Valve Prior PCI Prior PCIDate Prior CABG Surgery No Yes 09/24/1995 No Cerebrovascular Peripheral Artery Chronic Lung On Dialysis Diabetes Diabetes Therapy Disease Disease Disease No No No Yes Yes Insulin History: Stress Tests Stress or Imaging Studies Performed No History: Other Current Smoker Quit Packs a Day Years Used Pack Years No 10 Years Ago 1 15 15 Labs Hgb (g/dl) Hct (%) WBC (l/cumm) Platelets (thousands) 11.60-17.00 35.00-51.00 4.00-11.00 150.00-450.00 12.0 37 4.4 320 Glucose (mg/dl) BUN (mg/dl) Creatinine (mg/dl) BUN:Creatinine (1:x) 74.00-106.00 7.00-18.00 0.50-1.30 10.00-20.00 369 23 1.6 14.4 Na (meq/l) K (meq/l) 136.00-145.00 3.50-5.10 138 3.9 INR (PTT:PT) 0.90-1.10 1 Troponin I (ng/ml) CPK (u/l) CPK-MB (ng/ML) 0.02-0.05 26.00-308.00 0.50-3.60 5.56 321 32.4 Medication Medication Total Dose (Bolus/Oral) Medication Total Dosage/Unit 1% XYLOCAINE 15 mL FENTANYL 125 mcg HEPARIN 17143 units PLAVIX 600 mg Medications (Bolus/Oral) Medication Time Given Dosage/Unit Administered By Reason FENTANYL 01/09/2018 12:06:44 PM 50 mcg Merlin Campos RN As per physicians ve rbal order 50 mcg FENTANYL given in lab by Merlin Campos RN in Right Antecubital via Peripheral IV. Ordered by Zelalem Manzo Reason: As per physicians verbal order. 1% XYLOCAINE 01/09/2018 12:09:26 PM 15 mL Zelalem Thompson 15 mL 1% XYLOCAINE given in lab by Zelalem Thompson in Right Groin via Subcutaneous. Ordered by Zelalem Manzo HEPARIN 01/09/2018 12:39:20 PM [address] [place] [address] units HEPARIN given in lab by Merlin Campos RN in Right Antecubital via Peripheral IV. Ordered b Zelalem Noonan FENTANYL 01/09/2018 1:15:43 PM 25 mcg Merlin Campos RN 25 mcg FENTANYL given in lab by Merlin Campos RN in Right Antecubital via Peripheral IV. Ordered by Zelalem Manzo FENTANYL 01/09/2018 1:38:08 PM 50 mcg Merlin Campos RN 50 mcg FENTANYL given in lab by Merlin Campos RN in Right Antecubital via Peripheral IV. Ordered by Zelalem Manzo PLAVIX 01/09/2018 1:50:26 PM 600 mg Merlin Campos RN 600 mg PLAVIX given in lab by Merlin Campos RN via Oral. Ordered by Zelalem Thompson Medication (Drip) Medication Time Given Dosage/Unit Concentration/Unit Diluent (ml) Solution IV Solutions 01/09/2018 11:50:03 AM 50 mL (IV) NaCl .9 Patient arrived on IV Solutions via Peripheral IV. Pump/Drip Flow using NaCl .9. Initial Case Assessment Cardiovascular HR Rhythm NIBP Chest Pain 56 nsr 165/81 0 Edema Present Skin color Skin None Normal Warm Dry Circulatory - Right Pulses Dorsalis Pedis Femoral 3 1 Scale (0,1,2,3,4,d) Circulatory - Left Pulses Dorsalis Pedis Femoral 3 1 Scale (0,1,2,3,4,d) Circulatory - Lower Extremities Color Lower Right Color Lower Left Normal Normal Neurological State Oriented to time-place- Alert Moves all extremities person Respiration - General Respiration Rate SpO2 (%) (B/min) 18 93 Final Case Assessment Cardiovascular HR Rhythm NIBP Chest Pain 56 nsr 165/81 0 Edema Present Skin color Skin None Normal Warm Dry Circulatory - Right Pulses Dorsalis Pedis Femoral 3 1 Scale (0,1,2,3,4,d) Circulatory - Left Pulses Dorsalis Pedis Femoral 3 1 Scale (0,1,2,3,4,d) Circulatory - Lower Extremities Color Lower Right Color Lower Left Normal Normal Neurological State Oriented to time-place- Alert Moves all extremities person Respiration - General Respiration Rate SpO2 (%) (B/min) 18 93 Chronological Log Time Study Chronological Log 11:39:00 Patient arrived via Bed. 11:39:07 Patient Name, D.O.B, / Armband Verified By R.N. 11:39:08 Consent signed by the physician and the patient and verified by the Emission Technician staff. 11:39:08 Pre-op and post- op instructions given; patient acknowledges understanding of instructions. 11:39:58 Presedation assessment performed by Emission Technician RN. 11:40:01 Patient has been NPO for More than 6Hrs. 11:40:03 Patient Warmer Placed on the Table. 11:40:08 Pierre Prominences Protected Vitals capture started with the following parameters, Patient=Adult, Interval=5 min, Initial Pr hyglmn=506 mmHg, 11:41:05 Deflation Rate=5 mmHg, Cuff placed on Right Arm 11:42:49 HR=58 bpm, WHAR=017/87 mmhg, SpO2=98.0 %, Resp=16 B/min, Pain=0, Kiel=10, Pacheco=2 11:44:00 HR=55 bpm, KDGZ=837/86 mmhg, SpO2=95 %, Resp=16 B/min, Pain=0, Kiel=10, Pacheco=2 11:45:49 HR=53 bpm, EZZT=336/84 mmhg, SpO2=95.0 %, Resp=17 B/min, Pain=0, Kiel=10, Pacheco=2 11:48:33 HR=55 bpm, ZJAG=709/85 mmhg, SpO2=93.0 %, Resp=15 B/min, Pain=0, Kiel=10, Pacheco=2 11:49:18 Reference ECG taken 11:49:46 HR=56 bpm, YWYH=284/81 mmhg, SpO2=94.0 %, Resp=15 B/min, Pain=0, Kiel=10, Pacheco=2 11:50:00 A # 20 IV was noted in the Antecubital (right). Grade = 0 11:50:03 Patient arrived on IV Solutions via Peripheral IV. Pump/Drip Flow using NaCl .9. 11:50:03 History and physical on the chart or being dictated. Assessment: Initial Case, HR=56 BPM, Rhythm=nsr, MVRG=097/81 mmhg, Chest Pain=0, Edema=None, Co grecia=Normal, Skin = Warm, Dry Right Pulses: Saman Ped=3, Femoral=1 Left Pulses: Saman Ped=3, Femoral=1 11:50:08 Lower Right Extremities: Color=Normal Lower Left Extremities: Color=Normal Neurological: State=Alert, Ox3, GATES Respiration: Resp=18 B/min, SpO2=93 % 11:51:51 HR=58 bpm, ZUQG=330/80 mmhg, SpO2=94.0 %, Resp=16 B/min, Pain=0, Kiel=10, Pacheco=2 11:54:33 HR=54 bpm, NWCI=933/65 mmhg, SpO2=94.0 %, Pain=0, Kiel=10, Pacheco=2 11:56:11 Bilateral groins prepped with 2% chlorhexidine, and draped after a 3 minute waiting time. 11:56:32 HR=91 bpm, NDSH=716/81 mmhg, SpO2=95.0 %, Pain=0, Kiel=10, Pacheco=2 11:57:10 MD paged 11:58:29 HR=55 bpm, DKJT=110/85 mmhg, SpO2=93.0 %, Pain=0, Kiel=10, Pacheco=2 11:58:42 Vitals capture stopped. 11:58:48 MD arrived. Vitals capture started with the following parameters, Patient=Adult, Interval=5 min, Initial Pr zpknid=886 mmHg, 11:58:54 Deflation Rate=5 mmHg, Cuff placed on Right Arm 12:00:04 Pressure channel 1 zeroed. 12:00:05 HR=55 bpm, KESK=253/83 mmhg, SpO2=89.0 %, Pain=0, Kiel=10, Pacheco=2 12:04:33 HR=54 bpm, OPNH=279/81 mmhg, SpO2=93.0 %, Pain=0, Kiel=10, Pacheco=2 Time Out. Correct patient, correct procedure, correct physician, power injector not loaded with contrast with surgical 12:05:14 team present. Time Out Concurred by MD and individual staff in procedure. 12:05:45 Case Start 50 mcg FENTANYL given in lab by Merlin Campos RN in Right Antecubital via Peripheral IV. Ordered by Zelalem Thompson 12:06:44 G. Reason: As per physicians verbal order. 15 mL 1% XYLOCAINE given in lab by Zelalem Thompson in Right Groin via Subcutaneous. Ordered by Jay 12:09:26 Zelalem Rodriguez 12:10:19 HR=55 bpm, VMJI=163/85 mmhg, SpO2=94.0 %, Pain=0, Kiel=10, Pacheco=2 12:15:29 HR=64 bpm, LHUT=544/94 mmhg, SpO2=93.0 %, Resp=12 B/min, Pain=0, Kiel=10, Pacheco=2 12:19:20 Access site was Right Femoral Vein. A INTRODUCER SET, MICROPUNCTURE STIFF FR 5 was advanced into the Fem Vein (right) using the Per cutaneous ::29 technique. A SHEATH, FR5 TERUMO (10CM) FR 5 was exchanged in the Fem Vein (right). This was necessary in o rder to 12:19:36 accomodate a larger catheter. 12:19:37 HR=58 bpm, UCGT=218/94 mmhg, SpO2=93.0 %, Resp=11 B/min, Pain=0, Kiel=10, Pacheco=2 12:23:21 Access site was Right Femoral Artery. A INTRODUCER SET, MICROPUNCTURE STIFF FR 5 was advanced into the Fem Art (right) using the Perc utaneous 12:23:28 technique. A SHEATH, FR5 TERUMO (10CM) FR 5 was exchanged in the Fem Art (right). This was necessary in or madeline to 12:23:39 accomodate a larger catheter. 12:24:38 HR=58 bpm, FTTC=103/101 mmhg, SpO2=86.0 %, Resp=12 B/min, Pain=0, Kiel=10, Pacheco=2 12:24:40 An injection in the Fem Art (right) was made through the SHEATH, FR5 TERUMO (10CM) FR 5. Recorded Pressure: Ao, HR=58, Condition=Condition 1 12:25:37 (Aorta) Ao 176/83/114 A JR 4.0 INFINITI CATHETER FR 5 was advanced over a wire. OMNIPAQUE, 350 MG, 150ML 150ML was us ed for 12:26:52 injections. Recorded Pressure: LV, HR=58, Condition=Condition 1 12:27:52 (Left Ventricle) LV 158/9/37 Recorded Pressure: LV, Ao, HR=57, Condition=Condition 1 12:28:14 (Left Ventricle) LV 157/8/36, (Aorta) Ao 163/76/108 12:29:12 The RCA was injected and visualized at various angles. OMNIPAQUE, 350 MG, 150ML 150ML used . After removing the current catheter a JL 4.0 DXTERITY CATHETER FR 5 was advanced over a WIRE, 3 MMJ .035 180CM 12:29:53 180CM. 12:30:24 HR=64 bpm, PIHN=417/89 mmhg, SpO2=91.0 %, Pain=0, Kiel=10, Pacheco=2 12:33:19 The LCA was injected and visualized at various angles. OMNIPAQUE, 350 MG, 150ML 150ML used . 12:34:40 HR=57 bpm, WYVB=802/88 mmhg, SpO2=90.0 %, Pain=0, Kiel=10, Pacheco=2 12:39:13 Catheter was removed A SHEATH, FR6 TERUMO (10CM) FR 6 was exchanged in the Fem Art (right). This was necessary in or madeline to 12:39:17 accomodate a larger catheter. 55310 units HEPARIN given in lab by Merlin Campos RN in Right Antecubital via Peripheral IV. Ord ered by Jay, 12:39:20 Zelalem Rodriguez 12:39:37 HR=54 bpm, VMXP=704/90 mmhg, SpO2=91.0 %, Pain=0, Kiel=10, Pacheco=2 12:39:50 A AR 1 GUIDE CATHETER FR 6 was advanced over a wire. OMNIPAQUE, 350 MG, 150ML 150ML was use d for injections. 12:43:55 A WIRE, BALANCE MIDDLEWEIGHT 190CM 190CM was inserted via Fem Art (right). 12:44:40 HR=58 bpm, ZKOG=709/83 mmhg, SpO2=92.0 %, Pain=0, Kiel=10, Pacheco=2 12:50:26 HR=54 bpm, TYRS=371/87 mmhg, SpO2=93.0 %, Resp=15 B/min, Pain=0, Kiel=10, Pacheco=2 12:53:04 Activated Clotting Time Drawn 12:53:28 Interventional wire has crossed the lesion A BALLOON, 2.0 X 12MM EUPHORA 12MM was inserted over WIRE, BALANCE MIDDLEWEIGHT 190CM 190CM via the 12:54:25 RCA. 12:55:25 HR=56 bpm, EPZX=183/85 mmhg, SpO2=92.0 %, Pain=0, Kiel=10, Pacheco=2 12:58:51 Balloon Removed. 12:59:35 ACT (Normal Range 90-180) = 379 12:59:43 HR=54 bpm, LVLY=532/84 mmhg, SpO2=91.0 %, Resp=15 B/min 13:01:47 A WIRE, DOC EXTENSION 145CM 145CM was connected to the BMW wire in the RCA via Fem Art (rig ht). A BALLOON, 1.25 X 6MM SPRINTER LEGEND OTW 6MM was inserted over WIRE, BALANCE MIDDLEWEIGHT 190C M 13:03:39 190CM via the RCA. 13:04:42 HR=56 bpm, HQFE=111/88 mmhg, SpO2=91 % 13:05:13 Wire removed 13:07:10 A WIRE, ASAHI GRANDSLAM 300CM 300CM was inserted via Fem Art (right). 13:09:43 HR=61 bpm, NESU=937/90 mmhg, SpO2=92.0 % 13:09:44 Balloon Removed. A BALLOON, 2.0 X 12MM EUPHORA 12MM was inserted over WIRE, ASAHI GRANDSLAM 300CM 300CM via the Fem Art 13:11:46 (right). A BALLOON, 2.0 X 12MM EUPHORA 12MM over a WIRE, ASAHI GRANDSLAM 300CM 300CM in the RCA Mid was inflated 13:12:50 using a 30 LAYNE INDEFLATOR at 8 layne for 15 sec. 13:14:46 HR=57 bpm, SWXT=273/78 mmhg, SpO2=95.0 %, Pain=0, Kiel=10, Pacheco=2 25 mcg FENTANYL given in lab by Merlin Campos RN in Right Antecubital via Peripheral IV. Ordered by Zelalem Thompson 13:15:43 G. 13:17:18 Balloon Removed. 13:19:41 HR=55 bpm, LIRY=897/90 mmhg, SpO2=95.0 %, Pain=0, Kiel=10, Pacheco=2 A STENT, 2.5 38MM JASMIN 2.5 38MM was advanced through a AR 1 GUIDE CATHETER FR 6 over a WIRE, AHI 13:20:10 GRANDSLAM 300CM 300CM. A STENT, 2.5 38MM JASMIN 2.5 38MM was deployed using a 30 LAYNE INDEFLATOR at 14 atmospheres for 30 seconds in 13:22:18 the RCA Mid. 13:24:44 HR=65 bpm, SBTM=446/84 mmhg, SpO2=93.0 %, Pain=0, Kiel=10, Pacheco=2 13:25:40 Activated Clotting Time Drawn A BALLOON, 2.75 X 15MM NC EUPHORA 15MM was inserted over WIRE, ASAHI GRANDSLAM 300CM 300CM via the 13:26:59 Fem Art (right). A BALLOON, 2.75 X 15MM NC EUPHORA 15MM over a WIRE, ASAHI GRANDSLAM 300CM 300CM in the RCA Mid was 13:28:02 inflated using a 30 LAYNE INDEFLATOR at 14 layne for 20 sec. A BALLOON, 2.75 X 15MM NC EUPHORA 15MM over a WIRE, ASAHI GRANDSLAM 300CM 300CM in the RCA Mid was 13:28:41 inflated using a 30 LAYNE INDEFLATOR at 14 layne for 20 sec. A BALLOON, 2.75 X 15MM NC EUPHORA 15MM over a WIRE, ASAHI GRANDSLAM 300CM 300CM in the RCA Mid was 13:29:06 inflated using a 30 LAYNE INDEFLATOR at 16 layne for 20 sec. 13:29:43 HR=60 bpm, XUET=005/91 mmhg, SpO2=93.0 %, Pain=0, Kiel=10, Pacheco=2 A BALLOON, 2.75 X 15MM NC EUPHORA 15MM over a WIRE, ASAHI GRANDSLAM 300CM 300CM in the RCA Mid was 13:29:55 inflated using a 30 LAYNE INDEFLATOR at 16 layne for 20 sec. A BALLOON, 2.75 X 15MM NC EUPHORA 15MM over a WIRE, ASAHI GRANDSLAM 300CM 300CM in the RCA Mid was 13:30:41 inflated using a 30 LAYNE INDEFLATOR at 18 layne for 10 sec. 13:31:12 Balloon Removed. 13:32:04 ACT (Normal Range 90-180) = 346 13:34:32 Wire removed 13:34:47 HR=70 bpm, YRPW=865/86 mmhg, SpO2=93.0 %, Pain=0, Kiel=10, Pacheco=2 13:35:38 Catheter was removed 13:36:58 ANGIOSEAL, FR6 VIP FR 6 placement in the Fem Art (right) 13:37:29 VASCADE, FR6 CLOSURE SYSTEM FR 6\7 placement in the Fem Vein (right) 50 mcg FENTANYL given in lab by Merlin Campos RN in Right Antecubital via Peripheral IV. Ordered by Zelalem Thompson 13:38:08 G. 13:40:33 HR=58 bpm, ATRE=081/87 mmhg, SpO2=92.0 %, Pain=0, Kiel=10, Pacheco=2 Assessment: Final Case, HR=56 BPM, Rhythm=nsr, LPDR=323/81 mmhg, Chest Pain=0, Edema=None, [place] r=Normal, Skin = Warm, Dry Right Pulses: Saman Ped=3, Femoral=1 Left Pulses: Saman Ped=3, Femoral=1 13:42:26 Lower Right Extremities: Color=Normal Lower Left Extremities: Color=Normal Neurological: State=Alert, Ox3, GATES Respiration: Resp=18 B/min, SpO2=93 % 13:42:35 Catheter(s) removed without difficulty 13:43:36 Case End 13:44:09 Sterile dressing applied to site 13:44:18 Cine recording checked. 13:44:23 Bedside Report will be given. 13:44:24 Implantable Device card placed in patient's chart. 13:44:28 A Left Heart Cath was performed. 13:44:47 HR=67 bpm, VPIH=296/93 mmhg, SpO2=95.0 %, Pain=0, Kiel=10, Pacheco=2 13:49:50 HR=62 bpm, VAZE=567/95 mmhg, SpO2=92.0 %, Pain=0, Kiel=10, Pacheco=2 13:50:26 600 mg PLAVIX given in lab by Merlin Campos RN via Oral. Ordered by Zelalem Thompson 13:55:13 Patient moved to [facility] End Study - Contrast Media Used In Study Contrast Total Opened (mL) Total Used (mL) Total Wasted (mL) Omnipaque 160 160 0 End Study - Maximum Contrast Load Max Contrast Load (mL) 468.8 End Study - Radiation Exposure Fluoro Time (minutes) 20.3 End Study - Sheaths Sheaths Pulled By Sheath Hold Time (min) Zelalem Thompson End Study - Patient Disposition Complications Transferred To Interventional Outcome No Critical Care Bed successful
[2018-01-09] MEDS ORDERED: MISC INFORMATION XX ONE (14:15)
[2018-01-09] MEDS ORDERED: ACETAMINOPHEN 325 MG TAB PO PRN (14:15)
[2018-01-09] MEDS ORDERED: oxyCODONE/ACETAMINOPHEN 5 MG/325 MG TAB PO PRN (14:30)
[2018-01-09] MEDS ORDERED: hydrALAZINE HCL 20 MG/ML VIAL IV PUSH PRN (14:30)
[2018-01-09] MEDS: INSULIN ASPART SUPPLEMENTAL SCALE SQ SCH ×3 (14:44→21:23)
[2018-01-09] MEDS ORDERED: IOHEXOL 350 MG/ML 100 ML BTL (for Cath Lab) OTHER ONE (14:53)
[2018-01-09] MEDS: METOPROLOL TARTRATE 100 MG TAB PO SCH ×2 (15:14→21:08)
[2018-01-09] MEDS: ISOSORBIDE MONONITRATE 30 MG CR TAB (IMDUR) PO SCH (15:17)
[2018-01-09] MEDS: oxyCODONE/ACETAMINOPHEN 5 MG/325 MG TAB PO PRN ×2 (15:42→21:09)
--- NOTE | 2018-01-09 19:17 | ECHRPT ---
Indication: CHEST PAIN CONCLUSIONS Mildly dilated left ventricle. Wall thickness is normal. The left ventricular systolic function is normal with an estimated ejection fraction of 55%. BP: / HR: Rhythm: MEASUREMENTS (Male / Female) Normal Values Technical Quality: 2D ECHO LV Diastolic Diameter PLAX 5.0 cm 4.2 - 5.9 / 3.9 - 5.3 cm LV Systolic Diameter PLAX 3.9 cm IVS Diastolic Thickness 0.9 cm 0.6 - 1.0 / 0.6 - 0.9 cm LVPW Diastolic Thickness 0.9 cm 0.6 - 1.0 / 0.6 - 0.9 cm LV Relative Wall Thickness 0.4 DOPPLER Mitral E Point Velocity 107.0 cm/s Mitral A Point Velocity 80.9 cm/s Mitral E to A Ratio 1.3 TR Peak Velocity 143.0 cm/s TR Peak Gradient 8.2 mmHg Right Atrial Pressure 5.0 mmHg Pulmonary Artery Systolic Pressu 13.2 mmHg Right Ventricular Systolic Press 13.2 mmHg FINDINGS LEFT VENTRICLE Mildly dilated left ventricle. Wall thickness is normal. The left ventricular systolic function is normal with an estimated ejection fraction of 55%. RIGHT VENTRICLE Normal right ventricular size and systolic function. LEFT ATRIUM The left atrial size is normal. RIGHT ATRIUM The right atrial size is normal. ATRIAL SEPTUM Normal atrial septal thickness without atrial level shunting by limited color doppler interrogation. AORTA The aortic root and proximal ascending aorta are normal in size on limited imaging. MITRAL VALVE Structurally normal mitral valve. No mitral valve stenosis or regurgitation. AORTIC VALVE Trileaflet aortic valve. No aortic valve stenosis or regurgitation. TRICUSPID VALVE Structurally normal tricuspid valve. No tricuspid valve stenosis or regurgitation. PULMONARY VALVE No pulmonary valve regurgitation or stenosis. VESSELS The inferior vena cava is normal in size. PERICARDIUM No pericardial effusion. Tiara Ryan MD, FACC (Electronically Signed) Final Date:09 January 2018 19:16
[2018-01-09] MEDS ORDERED: INSULIN ASPART 1,000 UNITS/10 ML VIAL SQ SCH (21:00)
[2018-01-09] MEDS: PANTOPRAZOLE SOD 40 MG DELAYED RELEASE TAB PO SCH (21:08)
[2018-01-09] MEDS: ATORVASTATIN 10 MG TAB PO SCH (21:08)
--- NOTE | 2018-01-09 22:22 | EKG ---
Date Performed: 01/09/2018 Time Performed: 01:34:32 PTAGE: 67 years EKG: Sinus rhythm BORDERLINE LEFT AXIS DEVIATION MODERATE ST DEPRESSION ABNORMAL ECG PREVIOUS TRACING : 01/09/2018 00.30 Compared to previous tracing, a fib no longer present DOCTOR: Tiara Ryan Interpretating Date/Time 01/09/2018 22:21:33
--- NOTE | 2018-01-09 22:25 | EKG ---
Date Performed: 01/09/2018 Time Performed: 00:30:18 PTAGE: 67 years EKG: ATRIAL FIBRILLATION WITH RAPID VENTRICULAR RESPONSE INDETERMINATE AXIS ST DEPRESSION, CONSI ALYSHA SUBENDOCARDIAL INJURY ABNORMAL ECG PREVIOUS TRACING : 07/11/2017 20.37 Compared to previous tracing, SR no longer present DOCTOR: Tiara Ryan Interpretating Date/Time 01/09/2018 22:25:04
[2018-01-10] VITALS (28 sets, daily range): BP systolic 130–154; BP diastolic 55–89; PULSE 16–68; RESP 16–20; TEMP 97.4–98; O2SAT 93–96
[2018-01-10 06:25] LABS: BASOPHIL # 0.1 TH/MM3 (0-0.2); BASOPHIL % 0.6 % (0.0-2.0); EOSINOPHIL # 0.1 TH/MM3 (0-0.4); EOSINOPHIL % 0.6 % (0.0-4.0); HEMATOCRIT 38.3 % (39.0-51.0); HEMOGLOBIN 12.5 GM/DL (13.0-17.0); LYMPH % 26.6 % (9.0-44.0); LYMPHOCYTE # 3.4 TH/MM3 (1.0-4.8); MEAN CELL VOLUME 83.8 FL (80.0-100.0); MEAN CORPUSCULAR HEMOGLOBIN 27.4 PG (27.0-34.0); MEAN CORPUSCULAR HGB CONC 32.7 % (32.0-36.0); MEAN PLATELET VOLUME 7.4 FL (7.0-11.0); MONO % 9.1 % (0.0-8.0); MONOCYTE # 1.2 TH/MM3 (0-0.9); NEUT % 63.1 % (16.0-70.0); PLATELET COUNT 283 TH/MM3 (150-450); RED BLOOD COUNT 4.58 MIL/MM3 (4.50-5.90); WHITE BLOOD COUNT 12.7 TH/MM3 (4.0-11.0)
[2018-01-10] MEDS: SUCRALFATE 1 GM TAB PO SCH ×2 (06:37→16:38)
[2018-01-10] MEDS: ISOSORBIDE MONONITRATE 30 MG CR TAB (IMDUR) PO SCH (06:37)
[2018-01-10] MEDS: SODIUM CHLOR 0.9% 1000 ML INJ 1,000 ML IV SCH ×2 (06:45→16:22)
[2018-01-10 06:52] LABS: BLOOD UREA NITROGEN 15 MG/DL (7-18); CALCIUM 8.4 MG/DL (8.5-10.1); CHLORIDE 105 MEQ/L (98-107); CREATININE 1.11 MG/DL (0.60-1.30); GLOMERULAR FILTRATION RATE 66 ML/MIN (>89); GLUCOSE,RANDOM 91 MG/DL (74-106); SODIUM (NA) 143 MEQ/L (136-145)
[2018-01-10] MEDS: INSULIN ASPART SUPPLEMENTAL SCALE SQ SCH ×4 (08:00→21:27)
[2018-01-10] MEDS: SODIUM CHLORIDE 0.9% FLUSH 10 ML FLUSH IV FLUSH SCH ×2 (09:00→21:30)
[2018-01-10] MEDS: METOPROLOL TARTRATE 100 MG TAB PO SCH ×2 (09:03→21:29)
[2018-01-10] MEDS: oxyCODONE/ACETAMINOPHEN 5 MG/325 MG TAB PO PRN (09:04)
[2018-01-10] MEDS: amLODIPine BESYLATE 5 MG TAB PO SCH (09:04)
[2018-01-10] MEDS: GABAPENTIN 300 MG CAP PO SCH ×2 (09:04→21:29)
[2018-01-10] MEDS: DULoxetine HCl DR 60 MG CAP PO SCH (09:04)
[2018-01-10] MEDS: ASPIRIN 81 MG CHEW TAB PO SCH (09:05)
[2018-01-10] MEDS: CLOPIDOGREL 75 MG TAB PO SCH (09:05)
[2018-01-10] MEDS: INSULIN HUMAN NPH 1,000 UNITS/10 ML VIAL SQ SCH ×2 (09:08→17:05)
--- NOTE | 2018-01-10 09:21 | MB ---
cc: Zelalem Thompson DO DATE: 01/09/2018 REASON FOR CONSULTATION: NSTEMI, atrial fibrillation with rapid ventricular response. HISTORY OF PRESENT ILLNESS: Irineo Fay is a pleasant 67-year-old male, whom I see in the office and presented to [facility] Emergency Room due to chest pain. He states that he was watching TV and started having chest pain which is squeezing in nature across the center of his chest, which radiated to his neck and jaw. He states that he was short of breath, but he has chronic shortness of breath and difficult to tell. The pain was 10/10 and he had his significant other drive him to the emergency room. On arrival, he was found to be in atrial fibrillation with RVR, which spontaneously converted to normal sinus rhythm. While here, he was found to have an elevated troponin. In seeing him this morning, he states that he was feeling much better than the night before. He did have some pain still radiating throughout his neck, but not so much as in his chest as before. He states that the pain goes into his jaw and teeth. PAST MEDICAL HISTORY: 1. Coronary artery disease. 2. Chronic back pain. 3. Atrial fibrillation. 4. COPD. 5. Anemia. 6. Diabetes mellitus. PAST SURGICAL HISTORY: 1. Cardiac catheterization with a history of stent placement to unknown vessel a number of years ago. 2. Loop recorder replacement. 3. Prostatectomy. 4. Atrial fibrillation ablation, believed to be twice. 5. Multiple back and neck surgeries. 6. Left patellar surgery. ALLERGIES: 1. ADHESIVE. 2. STATINS. 3. MORPHINE. MEDICATIONS: 1. Albuterol every 6 hours as needed for shortness of breath. 2. Eliquis 5 mg b.i.d. 3. Lipitor 10 mg every night. 4. Imdur 30 mg daily. 5. Nitroglycerine sublingual as needed. 6. Metoprolol tartrate 75 mg b.i.d. 7. Norvasc 5 mg daily. 8. Losartan/hydrochlorothiazide 100/25 daily. 9. Percocet 10/325 every 6 hours as needed for pain. 10. Gabapentin 600 mg b.i.d. 11. Duloxetine 60 mg daily. 12. Carafate 1 gram b.i.d. 13. Protonix 40 mg every night. 14. NovoLog 25 units every night. 15. Novolin N 100 units b.i.d. 16. Glimepiride 2 mg daily. FAMILY HISTORY: Father of lung cancer at the age of 56. Mother at the age of 70. Denies sudden cardiac within the family. 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 Previously smoked, but has not smoked in the past 12 years. Rarely drinks alcohol. REVIEW OF SYSTEMS: Fourteen systems were reviewed including osteopathic, pertinent positives and negatives above, otherwise negative. PHYSICAL EXAMINATION: VITAL SIGNS: Temperature 98.8, heart rate 62, blood pressure 135/65, respirations 18, pulse oximetry 96% on 4 liters. GENERAL: The patient appears relatively well, no acute distress. Alert, awake and oriented x 3. HEENT: Extraocular muscles intact. Mucous membranes moist. NECK: Supple. No JVD at 45 degrees. No carotid bruits heard bilaterally. Carotid upstroke is brisk in nature. HEART: Regular rate and rhythm. Positive first and second heart sounds, with no murmurs, gallops or rubs. LUNGS: Clear to auscultation bilaterally. No wheezes, rales or rhonchi. ABDOMEN: Soft, nontender, nondistended, no organomegaly noted. EXTREMITIES: Show no clubbing, cyanosis or edema. Femoral and distal pulses intact bilaterally. NEUROLOGIC: No focal deficits. SKIN: Warm, dry and intact. OSTEOPATHIC: No kyphoscoliosis, lordosis or paraspinal tender points. LABORATORY DATA: Hemoglobin 12.4, hematocrit 37.2, platelets 320. Potassium 3.9, BUN 23, creatinine 1.61. Lactic acid 3.2. Troponin 5.56. ELECTROCARDIOGRAM (01/09/2018 AT 07:58): Sinus bradycardia, left axis deviation, nonspecific ST-T wave changes. IMPRESSION: 1. Non-ST elevation myocardial infarction. 2. Chest pain concerning for coronary insufficiency. 3. Atrial fibrillation with rapid ventricular response, with a history of atrial fibrillation ablation x 2. 4. Obesity with a body mass index greater than 40. 5. History of coronary artery disease with previous stenting of unknown vessel. 6. Chronic shortness of breath. 7. Hypertension. 8. Diabetes mellitus type 2. RECOMMENDATIONS: 1. Mr. Fay presented with chest pain which was typical for coronary insufficiency and found to have an elevated troponin. Because of this, he will be recommended cardiac catheterization. 2. Risks, benefits, and alternatives have been explained and he consented to such. I did discuss with him consideration of going radial, but he states that he had significant problems with this in the past and would prefer a femoral route. 3. We will check a 2D echo to look at his overall left ventricular function, cardiac structure and possible valvulopathies. 4. He currently is on Eliquis and has not taken it since yesterday morning and so this will continue to be held going into the procedure. 5. He does have what appears to be probable acute kidney injury, but I believe that he should undergo the coronary visualization at this time, as he is still having some pain into the jaw concerning for continued unstable angina. 6. Further recommendations will be made based on coronary visualization. Thank you for allowing me to see Irineo Sumeet. If there are any questions, please do not hesitate to call. DO MK Anderson/GIRMA , 10:16 PM , 10:49 PM
--- NOTE | 2018-01-10 09:22 | MA ---
cc: Zelalem Thompson DO DATE: 01/09/2018 PROCEDURE PERFORMED: Left heart catheterization, coronary angiogram, complex case, Giovanny drug-eluting stent (2.5 x 38) to occluded RCA, Angio-Seal femoral arterial closure, Vascade femoral vein closure. PREPROCEDURE DIAGNOSIS: Non-ST elevation myocardial infarction, continual chest pain. POSTPROCEDURE DIAGNOSIS: Non-ST elevation myocardial infarction with occluded right coronary artery, status post Giovanny drug-eluting stent (2.5 x 38) to the right coronary artery. MEDICATIONS: Fentanyl 125 mcg, heparin 10,000 units, Plavix 600 mg. CONTRAST USED: 160 mL. FLUOROSCOPY: 20.3 minutes. MODERATE SEDATION: Zero minutes. FRAILTY SCORE: Three. ESTIMATED BLOOD LOSS: 10 mL. PROCEDURAL SUMMARY: Irineo Fay is a pleasant 67-year-old male whom I see in the office and presented to [facility] Emergency Room due to significant chest pain. He was found to have an elevated troponin and because of this, he was recommended cardiac catheterization. Risks, benefits and alternatives were explained to him and he consented as such. He was brought to the lab and prepped in the usual sterile fashion. The right femoral artery was attempted to be accessed and venous access was obtained, so a 5-Turkish sheath was placed by modified Seldinger technique. Right femoral artery was accessed using modified Seldinger technique and placement of a 5-Turkish sheath. A JR4 was advanced over J-wire to the ascending aorta and across the aortic valve for measurement of left ventricular pressure. This was pulled back across the aortic valve, showing a significant gradient of aortic stenosis. JR4 was used for selective angiography of the right coronary artery system. This is then exchanged for a JL 3.5, which was used to perform selective angiography of the left coronary artery system. JL 3.5 was then removed over a J-wire. Please see intervention below for further notes. FINDINGS: Left main normal size vessel with adequate reflux. It bifurcates into an LAD and circumflex. LAD normal size vessel with mild luminal irregularities throughout the proximal portion. It gives off 2 diagonals with no significant disease. There are some collaterals to the right coronary artery system, mostly to a posterolateral branch. Left circumflex normal size vessel with a 30% lesion in the first obtuse marginal at its takeoff. It supplies a second obtuse marginal. It also helps to supply some collaterals to a posterolateral branch. RCA normal size vessel, with 100% occlusion in the mid portion. There is contrast hang up, signifying probably an acute process. LVEDP 30. INTERVENTION: In reviewing the films, there are some collaterals to the right coronary artery system, but Mr. Fay continued to have pain into his jaw which started with his chest pain, concerning for continual angina. I felt that this was an acute process of the right coronary artery system, as he did have the elevation of troponins, as well as there was contrast hang up, signifying probable acute process. I felt that it was reasonable to intervene at this time, but was concerned about his acute kidney injury. Overall, I did not feel that giving him a day or 2 to rest his kidneys would be possible, as he continued to have chest pain and did not feel that letting his kidneys rest for a day or 2 would be possible. A 5-Turkish sheath was exchanged for a 6-Turkish sheath. The patient was given heparin as an anticoagulant. An AR1 guide was engaged into the right coronary artery system. The BMW was attempted to be advanced, but was unable to pass the occlusion. A compliant balloon (2 x 12) was then placed for further backup and this allowed a BMW wire to be advanced meticulously through the occlusion. Compliant balloon was removed and a dock wire was placed onto the BMW. An over the wire balloon was then advanced into the distal portion of the RCA and injection through it showed that I was intravascular. A long [place] wire was then advanced into the distal RCA. The compliant balloon (2 x 12) was then used to predilate the lesion. An Giovanny drug-eluting stent (2.5 x 38) was then placed over the lesion and inflated. This was postdilated throughout with a noncompliant balloon (2.75 x 15). The wire was removed. The final angiogram shows a well opposed stent, with no perforations or dissections. A 6-Turkish Angio-Seal was used to close the arteriotomy site. A Vascade was used to close the venous site. The patient was given 600 mg of Plavix. He left the laboratory animal caretaker cardiovascularly stable. IMPRESSION: 1. Non-ST elevation myocardial infarction, status post Giovanny drug-eluting stent (2.5 x 38) to occluded right coronary artery. 2. Atrial fibrillation with rapid ventricular response, which has since converted to normal sinus rhythm. 3. Obesity with a body mass index greater than 40. 4. Hypertension. 5. Diabetes mellitus. RECOMMENDATIONS: 1. Mr. Fay underwent PCI as above and will be placed on aspirin and Plavix therapy. 2. If stable tomorrow, he will be restarted on his Eliquis and most likely be discharged on Eliquis and Plavix therapy. 3. He will be evaluated tomorrow and if stable will be discharged home. 4. We will check a 2D echo to look at his overall left ventricular function, cardiac structure and possible valvulopathies. 5. For now, we will hold his losartan and hydrochlorothiazide due to acute kidney injury, as well as receiving contrast. He will not be placed on PRISCILA inhibitor therapy for the same reason. 6. He will continue on his beta gunner and statin therapy. 7. Further recommendations will be made based on the hospital course. Thank you for allowing me to see Irineo Fay. If there are any questions, please do not hesitate to call. DO SHARMILA Anderson , 10:41 PM , 11:16 PM
[2018-01-10] MEDS ORDERED: FUROSEMIDE 20 MG/2 ML VIAL IV PUSH ONE (11:00)
[2018-01-10] MEDS: RESP: ALBUTEROL 2.5 MG/IPRATROPIUM 0.5 MG NEB (PRN) NEB ×3 (11:07→19:45)
[2018-01-10] MEDS: LEVOFLOXACIN 500 MG PREMIX INJ 100 ML IV SCH (16:39)
[2018-01-10 17:55] LABS: HEMOGLOBIN A1C 8.8 % (4.3-6.0)
--- NOTE | 2018-01-10 18:12 | HHI.PR ---
Subjective Remarks Patient complains that he has discomfort in his chest that affects his breathing when he lays down, he denies left-sided chest pain Objective Vitals Vital Signs Date Time Temp Pulse Resp B/P (MAP) Pulse Ox O2 Delivery O2 Flow Rate FiO2 01/10/18 17:00 52 01/10/18 16:00 52 01/10/18 15:44 97.7 56 18 130/60 (83) 95 01/10/18 15:00 51 01/10/18 14:00 60 01/10/18 13:00 54 01/10/18 12:01 46 01/10/18 11:04 97.6 61 20 150/89 (109) 94 01/10/18 11:00 58 01/10/18 10:00 52 01/10/18 09:50 93 21 01/10/18 09:00 62 01/10/18 08:20 98.0 59 16 154/55 (88) 94 01/10/18 08:00 48 01/10/18 07:00 50 01/10/18 04:02 48 01/10/18 04:00 97.4 50 20 147/68 (94) 96 01/10/18 00:32 50 01/10/18 00:00 97.5 53 20 149/57 (87) 94 01/09/18 22:09 18 01/09/18 20:03 56 01/09/18 20:00 97.4 59 20 157/64 (95) 94 I/O 01/09/18 01/09/18 01/09/18 01/10/18 01/10/18 01/10/18 07:00 15:00 23:00 07:00 15:00 23:00 Intake Total 1200 ml 515 ml 1000 ml 360 ml 830 ml Output Total 350 ml 1100 ml 2750 ml 1575 ml Balance 1200 ml 165 ml -100 ml -2390 ml -745 ml Intake Oral 0 ml 700 ml 360 ml 830 ml IV Total 1200 ml 515 ml 300 ml Output Urine Total 350 ml 1100 ml 2750 ml 1575 ml Stool Total 0 ml # Voids 1 # Bowel Movements 0 Result Diagram: 01/10/1852301/10/18523 Objective Remarks GENERAL: Obese, oxygen dependent SKIN: Warm and dry. HEAD: Normocephalic. EYES: No scleral icterus. No injection or drainage. NECK: Supple, trachea midline. No JVD or lymphadenopathy. CARDIOVASCULAR: Sinus rhythm edema without murmurs, gallops, or rubs. RESPIRATORY: Breath sounds equal bilaterally. No accessory muscle use. GASTROINTESTINAL: Abdomen soft, non-tender, nondistended. EXTREMITIES: No cyanosis, or edema. NEUROLOGICAL: Awake, alert, and oriented x 3. Non-focal. A/P Problem List: (1) Non-ST elevation [place] (NSTEMI) ICD Code: I21.4 - Non-ST elevation (NSTEMI) myocardial infarction (2) Atrial fibrillation with RVR ICD Code: I48.91 - Unspecified atrial fibrillation Status: Acute Assessment and Plan Non-ST elevation [place] Continue heparin drip 2D echocardiogram results are pending Cardiology recommends heart catheterization Appreciate cardiology consult Atrial fibrillation with RVR Sinus rhythm on exam today Continue Eliquis as outpatient, Continue Lopressor 100 mg every 12 hours Upper respiratory infection Continue outpatient treatment regiment with Levaquin 500 IV daily and Decadron 4 mg IV twice daily Hypertension Resolved at this time Continue with Norvasc, hydrochlorothiazide and Cozaar Diabetes type 2 Accu-Cheks with medium sliding scale coverage Levemir at at bedtime DVT prophylaxis Benja Moe MD Jan 10, 2018 18:12
--- NOTE | 2018-01-10 18:48 | PD.CARD.PN ---
Subjective Subjective Remarks Patient was seen earlier today, late entry note No chest pain Does have SOB with laying down flat Objective Medications Current Medications Medications (Trade) Dose Ordered Sig/Sussy Route Start Time Stop Time Status Last Admin Sodium Chloride 1,000 ml @ 100 mls/hr Q10H IV 01/09/18 00:45 01/09/18 15:29 Amiodarone HCl 450 mg/Sodium Chloride 259 ml @ 33.33 mls/ hr Q7H47M PRN IV 01/09/18 01:30 (Lopressor) 100 mg Q12HR PO 01/09/18 15:00 01/10/18 09:03 (NS Flush) 2 ml BID IV FLUSH 01/09/18 09:00 01/10/18 09:00 (NS Flush) 2 ml UNSCH PRN IV FLUSH 01/09/18 03:45 (Nitrostat Sl) 0.4 mg Q5M PRN SL 01/09/18 03:45 (Tylenol) 500 mg Q4H PRN PO 01/09/18 03:45 (Compazine Inj) 5 mg Q4H PRN IV PUSH 01/09/18 04:00 (Norvasc) 5 mg DAILY PO 01/09/18 09:00 01/10/18 09:04 (Lipitor) 10 mg HS PO 01/09/18 21:00 01/09/18 21:08 (Cymbalta Dr) 60 mg DAILY PO 01/09/18 09:00 01/10/18 09:04 (Neurontin) 600 mg BID PO 01/09/18 09:00 01/10/18 09:04 (Protonix) 40 mg HS PO 01/09/18 21:00 01/09/18 21:08 (Carafate) 1 gm BIDAC PO 01/09/18 07:00 01/10/18 16:38 (NovoLIN N INJ) 50 units BID@08,17 SQ 01/09/18 08:00 01/10/18 17:05 (Duoneb Neb) 1 ampule Q4HR NEB PRN NEB 01/09/18 04:15 01/10/18 15:07 (Cozaar) 100 mg DAILY PO 01/09/18 09:00 Future Hold 01/09/18 08:23 (Hydrodiuril) 25 mg DAILY PO 01/09/18 09:00 Future Hold 01/09/18 08:23 Heparin Sodium/ Dextrose 250 ml @ 10 mls/hr TITRATE PRN IV 01/09/18 08:00 01/09/18 08:20 (Imdur) 30 mg DAILY@0700 PO 01/09/18 09:45 01/10/18 06:37 (D50w (Vial) Inj) 50 ml UNSCH PRN IV PUSH 01/09/18 10:30 (Glucagon Inj) 1 mg UNSCH PRN OTHER 01/09/18 10:30 (NovoLOG SUPPLEMENTAL SCALE) 1 ACHS SLIDING SCALE SQ 01/09/18 12:00 01/10/18 17:00 (Tylenol) 325 mg Q4H PRN PO 01/09/18 14:15 (Aspirin Chew) 81 mg DAILY PO 01/10/18 09:00 01/10/18 09:05 (Plavix) 75 mg DAILY PO 01/10/18 09:00 01/10/18 09:05 (Percocet 5-325 Mg) 1 tab Q4H PRN PO 01/09/18 14:30 (Percocet 5-325 Mg) 2 tab Q4H PRN PO 01/09/18 14:30 01/10/18 09:04 (Apresoline Inj) 10 mg Q3HR PRN IV PUSH 01/09/18 14:30 01/09/18 14:33 (NovoLOG INJ) 25 units HS SQ 01/10/18 21:00 Future Hold Levofloxacin/ Dextrose 100 ml @ 100 mls/hr Q24H IV 01/10/18 17:00 01/10/18 16:39 (Decadron Inj) 4 mg Q12HR IV PUSH 01/10/18 21:00 Vital Signs / I&O Vital Signs Date Time Temp Pulse Resp B/P (MAP) Pulse Ox O2 Delivery O2 Flow Rate FiO2 01/10/18 18:00 60 01/10/18 17:00 52 01/10/18 16:00 52 01/10/18 15:44 97.7 56 18 130/60 (83) 95 01/10/18 15:00 51 01/10/18 14:00 60 01/10/18 13:00 54 01/10/18 12:01 46 01/10/18 11:04 97.6 61 20 150/89 (109) 94 01/10/18 11:00 58 01/10/18 10:00 52 01/10/18 09:50 93 21 01/10/18 09:00 62 01/10/18 08:20 98.0 59 16 154/55 (88) 94 01/10/18 08:00 48 01/10/18 07:00 50 01/10/18 04:02 48 01/10/18 04:00 97.4 50 20 147/68 (94) 96 01/10/18 00:32 50 01/10/18 00:00 97.5 53 20 149/57 (87) 94 01/09/18 22:09 18 01/09/18 20:03 56 01/09/18 20:00 97.4 59 20 157/64 (95) 94 I/O 01/09/18 01/09/18 01/09/18 01/10/18 01/10/18 01/10/18 07:00 15:00 23:00 07:00 15:00 23:00 Intake Total 1200 ml 515 ml 1000 ml 360 ml 830 ml Output Total 350 ml 1100 ml 2750 ml 1575 ml Balance 1200 ml 165 ml -100 ml -2390 ml -745 ml Intake Oral 0 ml 700 ml 360 ml 830 ml IV Total 1200 ml 515 ml 300 ml Output Urine Total 350 ml 1100 ml 2750 ml 1575 ml Stool Total 0 ml # Voids 1 # Bowel Movements 0 Physical Exam GENERAL: NAD, AAOx3 SKIN: Warm and dry. HEAD: Atraumatic. Normocephalic. EYES: Pupils equal and round. No scleral icterus. No injection or drainage. ENT: No nasal bleeding or discharge. Mucous membranes pink and moist. NECK: Trachea midline. No JVD. CARDIOVASCULAR: Regular rate and rhythm. RESPIRATORY: No accessory muscle use. Decreased breath sounds bilaterally GASTROINTESTINAL: Abdomen soft, non-tender, nondistended. Hepatic and splenic margins not palpable. MUSCULOSKELETAL: Extremities without clubbing, cyanosis, or edema. No obvious deformities. Right femoral no hematoma, minimal ecchymosis NEUROLOGICAL: Awake and alert. No obvious cranial nerve deficits. Motor grossly within normal limits. Five out of 5 muscle strength in the arms and legs. Normal speech. PSYCHIATRIC: Appropriate mood and affect; insight and judgment normal. Laboratory Laboratory Tests Test 01/09/18 20:02 01/10/18 05:24 01/10/18 16:53 Activated Partial Thromboplast Time 20.1 SEC White Blood Count 12.7 TH/MM3 Red Blood Count 4.58 MIL/MM3 Hemoglobin 12.5 GM/DL Hematocrit 38.3 % Mean Corpuscular Volume 83.8 FL Mean Corpuscular Hemoglobin 27.4 PG Mean Corpuscular Hemoglobin Concent 32.7 % Red Cell Distribution Width 15.0 % Platelet Count 283 TH/MM3 Mean Platelet Volume 7.4 FL Neutrophils (%) (Auto) 63.1 % Lymphocytes (%) (Auto) 26.6 % Monocytes (%) (Auto) 9.1 % Eosinophils (%) (Auto) 0.6 % Basophils (%) (Auto) 0.6 % Neutrophils # (Auto) 8.0 TH/MM3 Lymphocytes # (Auto) 3.4 TH/MM3 Monocytes # (Auto) 1.2 TH/MM3 Eosinophils # (Auto) 0.1 TH/MM3 Basophils # (Auto) 0.1 TH/MM3 CBC Comment DIFF FINAL Differential Comment Blood Urea Nitrogen 15 MG/DL Creatinine 1.11 MG/DL Random Glucose 91 MG/DL Calcium Level 8.4 MG/DL Sodium Level 143 MEQ/L Potassium Level 3.7 MEQ/L Chloride Level 105 MEQ/L Carbon Dioxide Level 31.0 MEQ/L Anion Gap 7 MEQ/L Estimat Glomerular Filtration Rate 66 ML/MIN Hemoglobin A1c 8.8 % D-Dimer Quantitative (PE/DVT) 0.33 MG/L FEU Assessment and Plan Problem List: (1) Non-ST elevation [place] (NSTEMI) ICD Codes: I21.4 - Non-ST elevation (NSTEMI) myocardial infarction (2) Atrial fibrillation with RVR ICD Codes: I48.91 - Unspecified atrial fibrillation Status: Acute (3) Chest pain ICD Codes: R07.9 - Chest pain, unspecified Status: Acute (4) ACS (acute coronary syndrome) ICD Codes: I24.9 - Acute ischemic heart disease, unspecified Status: Acute (5) Renal insufficiency ICD Codes: N28.9 - Renal insufficiency Status: Acute Assessment and Plan 1) CAD/NSTEMI s/p ENRIQUETA to RCA ASA/Plavix 2) SOB Most likely secondary to excess fluid due to JUNIOR Lasix IV x1 3) EF 55% 4) Plan for discharge ASA/Plavix/Eliquis for 30 days then stop the ASA 5) Will restart ARB/HCTZ 6) Con't BB/Statin Zelalem Thompson DO Jan 10, 2018 18:48
[2018-01-10] MEDS ORDERED: INSULIN ASPART 1,000 UNITS/10 ML VIAL SQ SCH (21:00)
[2018-01-10] MEDS: ATORVASTATIN 10 MG TAB PO SCH (21:28)
[2018-01-10] MEDS: PANTOPRAZOLE SOD 40 MG DELAYED RELEASE TAB PO SCH (21:28)
[2018-01-10] MEDS: DEXAMETHASONE SOD PHOS 4 MG/ML VIAL IV PUSH SCH (21:29)
[2018-01-11] VITALS (20 sets, daily range): BP systolic 121–159; BP diastolic 66–81; PULSE 46–70; RESP 16–18; TEMP 97.4–98; O2SAT 92–97
[2018-01-11] MEDS: oxyCODONE/ACETAMINOPHEN 5 MG/325 MG TAB PO PRN ×3 (02:00→12:01)
[2018-01-11] MEDS: ISOSORBIDE MONONITRATE 30 MG CR TAB (IMDUR) PO SCH (06:29)
[2018-01-11] MEDS: SUCRALFATE 1 GM TAB PO SCH ×2 (06:29→17:02)
[2018-01-11] MEDS: INSULIN ASPART SUPPLEMENTAL SCALE SQ SCH ×2 (08:18→12:09)
[2018-01-11] MEDS: ASPIRIN 81 MG CHEW TAB PO SCH (08:19)
[2018-01-11] MEDS: GABAPENTIN 300 MG CAP PO SCH (08:19)
[2018-01-11] MEDS: METOPROLOL TARTRATE 100 MG TAB PO SCH (08:20)
[2018-01-11] MEDS: INSULIN HUMAN NPH 1,000 UNITS/10 ML VIAL SQ SCH (08:20)
[2018-01-11] MEDS: HYDROCHLOROTHIAZIDE 25 MG TAB PO SCH (08:21)
[2018-01-11] MEDS: LOSARTAN 50 MG TAB PO SCH (08:21)
[2018-01-11] MEDS: CLOPIDOGREL 75 MG TAB PO SCH (08:22)
[2018-01-11] MEDS: amLODIPine BESYLATE 5 MG TAB PO SCH (08:22)
[2018-01-11] MEDS: SODIUM CHLORIDE 0.9% FLUSH 10 ML FLUSH IV FLUSH SCH (08:23)
[2018-01-11] MEDS: DEXAMETHASONE SOD PHOS 4 MG/ML VIAL IV PUSH SCH (08:24)
[2018-01-11] MEDS: DULoxetine HCl DR 60 MG CAP PO SCH (08:27)
[2018-01-11] MEDS ORDERED: FUROSEMIDE 20 MG/2 ML VIAL IV PUSH ONE (11:00)
[2018-01-11] MEDS: RESP: ALBUTEROL 2.5 MG/IPRATROPIUM 0.5 MG NEB (PRN) NEB (12:54)
--- NOTE | 2018-01-11 13:41 | PD.CARD.PN ---
Subjective Subjective Remarks No chest pain Does have SOB with laying down flat but better 4L negative Objective Medications Current Medications Medications (Trade) Dose Ordered Sig/Sussy Route Start Time Stop Time Status Last Admin Amiodarone HCl 450 mg/Sodium Chloride 259 ml @ 33.33 mls/ hr Q7H47M PRN IV 01/09/18 01:30 (Lopressor) 100 mg Q12HR PO 01/09/18 15:00 01/11/18 08:20 (NS Flush) 2 ml BID IV FLUSH 01/09/18 09:00 01/11/18 08:23 (NS Flush) 2 ml UNSCH PRN IV FLUSH 01/09/18 03:45 (Nitrostat Sl) 0.4 mg Q5M PRN SL 01/09/18 03:45 (Tylenol) 500 mg Q4H PRN PO 01/09/18 03:45 (Compazine Inj) 5 mg Q4H PRN IV PUSH 01/09/18 04:00 (Norvasc) 5 mg DAILY PO 01/09/18 09:00 01/11/18 08:22 (Lipitor) 10 mg HS PO 01/09/18 21:00 01/10/18 21:28 (Cymbalta Dr) 60 mg DAILY PO 01/09/18 09:00 01/11/18 08:27 (Neurontin) 600 mg BID PO 01/09/18 09:00 01/11/18 08:19 (Protonix) 40 mg HS PO 01/09/18 21:00 01/10/18 21:28 (Carafate) 1 gm BIDAC PO 01/09/18 07:00 01/11/18 06:29 (NovoLIN N INJ) 50 units BID@08,17 SQ 01/09/18 08:00 01/11/18 08:20 (Duoneb Neb) 1 ampule Q4HR NEB PRN NEB 01/09/18 04:15 01/11/18 12:54 (Cozaar) 100 mg DAILY PO 01/09/18 09:00 Future hold 01/11/18 08:21 (Hydrodiuril) 25 mg DAILY PO 01/09/18 09:00 Future hold 01/11/18 08:21 Heparin Sodium/ Dextrose 250 ml @ 10 mls/hr TITRATE PRN IV 01/09/18 08:00 01/09/18 08:20 (Imdur) 30 mg DAILY@0700 PO 01/09/18 09:45 01/11/18 06:29 (D50w (Vial) Inj) 50 ml UNSCH PRN IV PUSH 01/09/18 10:30 (Glucagon Inj) 1 mg UNSCH PRN OTHER 01/09/18 10:30 (NovoLOG SUPPLEMENTAL SCALE) 1 ACHS SLIDING SCALE SQ 01/09/18 12:00 01/11/18 12:09 (Tylenol) 325 mg Q4H PRN PO 01/09/18 14:15 (Aspirin Chew) 81 mg DAILY PO 01/10/18 09:00 01/11/18 08:19 (Plavix) 75 mg DAILY PO 01/10/18 09:00 01/11/18 08:22 (Percocet 5-325 Mg) 1 tab Q4H PRN PO 01/09/18 14:30 (Percocet 5-325 Mg) 2 tab Q4H PRN PO 01/09/18 14:30 01/11/18 12:01 (Apresoline Inj) 10 mg Q3HR PRN IV PUSH 01/09/18 14:30 01/09/18 14:33 (NovoLOG INJ) 25 units HS SQ 01/10/18 21:00 Future Hold Levofloxacin/ Dextrose 100 ml @ 100 mls/hr Q24H IV 01/10/18 17:00 01/10/18 16:39 (Decadron Inj) 4 mg Q12HR IV PUSH 01/10/18 21:00 01/11/18 08:24 Vital Signs / I&O Vital Signs Date Time Temp Pulse Resp B/P (MAP) Pulse Ox O2 Delivery O2 Flow Rate FiO2 01/11/18 13:00 70 01/11/18 12:57 96 Nasal Cannula 2.00 01/11/18 12:39 97.9 56 17 131/66 (87) 97 01/11/18 12:00 48 01/11/18 11:00 51 01/11/18 10:00 54 01/11/18 09:00 56 01/11/18 08:29 98.0 68 18 121/68 (85) 93 01/11/18 08:00 48 01/11/18 07:00 49 01/11/18 04:00 97.8 54 18 131/81 (98) 95 01/11/18 04:00 47 01/11/18 03:00 46 01/11/18 02:00 58 01/11/18 01:00 50 01/11/18 00:01 54 01/11/18 00:00 97.6 54 16 159/76 (103) 93 01/10/18 23:00 62 01/10/18 22:00 66 01/10/18 21:20 97.7 56 18 142/60 (87) 96 01/10/18 21:00 68 01/10/18 20:01 60 01/10/18 19:46 93 21 01/10/18 19:00 60 01/10/18 18:00 60 01/10/18 17:00 52 01/10/18 16:00 52 01/10/18 15:44 97.7 56 18 130/60 (83) 95 01/10/18 15:00 51 01/10/18 14:00 60 I/O 01/10/18 01/10/18 01/10/18 01/11/18 01/11/18 01/11/18 07:00 15:00 23:00 07:00 15:00 23:00 Intake Total 360 ml 830 ml 480 ml Output Total 2750 ml 1575 ml 1550 ml Balance -2390 ml -745 ml -1070 ml Intake Oral 360 ml 830 ml 480 ml Output Urine Total 2750 ml 1575 ml 1550 ml # Bowel Movements 0 Physical Exam GENERAL: NAD, AAOx3 SKIN: Warm and dry. HEAD: Atraumatic. Normocephalic. EYES: Pupils equal and round. No scleral icterus. No injection or drainage. ENT: No nasal bleeding or discharge. Mucous membranes pink and moist. NECK: Trachea midline. No JVD. CARDIOVASCULAR: Regular rate and rhythm. RESPIRATORY: No accessory muscle use. Decreased breath sounds bilaterally GASTROINTESTINAL: Abdomen soft, non-tender, nondistended. Hepatic and splenic margins not palpable. MUSCULOSKELETAL: Extremities without clubbing, cyanosis, or edema. No obvious deformities. Right femoral no hematoma, minimal ecchymosis NEUROLOGICAL: Awake and alert. No obvious cranial nerve deficits. Motor grossly within normal limits. Five out of 5 muscle strength in the arms and legs. Normal speech. PSYCHIATRIC: Appropriate mood and affect; insight and judgment normal. Laboratory Laboratory Tests Test 01/10/18 16:53 D-Dimer Quantitative (PE/DVT) 0.33 MG/L FEU Assessment and Plan Problem List: (1) Non-ST elevation ND (NSTEMI) ICD Codes: I21.4 - Non-ST elevation (NSTEMI) myocardial infarction (2) Atrial fibrillation with RVR ICD Codes: I48.91 - Unspecified atrial fibrillation Status: Acute (3) Chest pain ICD Codes: R07.9 - Chest pain, unspecified Status: Acute (4) ACS (acute coronary syndrome) ICD Codes: I24.9 - Acute ischemic heart disease, unspecified Status: Acute (5) Renal insufficiency ICD Codes: N28.9 - Renal insufficiency Status: Acute Assessment and Plan 1) CAD/NSTEMI s/p ENRIQUETA to RCA ASA/Plavix 2) SOB Most likely secondary to excess fluid due to JUNIOR Lasix IV again today 3) EF 55% 4) Plan for discharge ASA/Plavix/Eliquis for 30 days then stop the ASA 5) Will restart ARB/HCTZ 6) Con't BB/Statin 7) From my standpoint may be discharged this afternoon if stable, will see in the office in the next 2-5 weeks Zelalem Thompson DO Jan 11, 2018 13:41
--- NOTE | 2018-01-11 17:01 | HHI.DS ---
Discharge Summary Admission Date Jan 09, 2018 at 03:27 Discharge Date: Jan 11, 2018 Admitting Diagnosis chest pain/acs; afib rvr; copd (1) Non-ST elevation LA (NSTEMI) ICD Code: I21.4 - Non-ST elevation (NSTEMI) myocardial infarction (2) Atrial fibrillation with RVR ICD Code: I48.91 - Unspecified atrial fibrillation Status: Acute Procedures cardiac catheterization, ENRIQUETA to RCA Brief History - From Admission 67-year-old male with a history of diabetes type 2, atrial fibrillation and on Eliquis, hypertension, COPD, prior cardiac stent placed in 1995 presented to the ED for evaluation of an acute onset of substernal chest pain described as squeezing, stabbing with radiation to his neck and jaw without any associated diaphoresis and shortness of breath around midnight as patient was watching TV. The Pain was rated 10 out of 10 in intensity. When patient initially presented to the ED, he had no elevated cardiac enzymes however a second sets was high. Patient was found to be in A. fib RVR but is currently rate controlled. He does have a history of COPD for which he sees pulmonary medicine, and patient is currently on p.o. antibiotics. He has no GI bleed. He was seen by cardiology, and the case was discussed with Dr. Thompson. CBC/BMP: 01/10/18 0524 01/10/18 0524 Significant Findings Laboratory Tests Test 01/09/18 01:00 01/09/18 02:30 01/09/18 05:30 01/09/18 09:30 White Blood Count 20.8 TH/MM3 (4.0-11.0) 15.8 TH/MM3 (4.0-11.0) Neutrophils (%) (Auto) 80.7 % (16.0-70.0) Neutrophils # (Auto) 16.8 TH/MM3 (1.8-7.7) Monocytes # (Auto) 1.1 TH/MM3 (0-0.9) Activated Partial Thromboplast Time 22.1 SEC (24.3-30.1) 22.1 SEC (24.3-30.1) Blood Urea Nitrogen 23 MG/DL (7-18) Creatinine 1.61 MG/DL (0.60-1.30) Random Glucose 369 MG/DL (74-106) Carbon Dioxide Level 19.8 MEQ/L (21.0-32.0) Estimat Glomerular Filtration Rate 43 ML/MIN (>89) Troponin I 0.21 NG/ML (0.02-0.05) 5.56 NG/ML (0.02-0.05) Lactic Acid Level 3.2 mmol/L (0.4-2.0) 3.2 mmol/L (0.4-2.0) Total Creatine Kinase 321 U/L (39-308) Creatine Kinase MB 32.4 NG/ML (0.5-3.6) Creatine Kinase MB % 10.1 % (0.0-4.0) Red Blood Count 4.48 MIL/MM3 (4.50-5.90) Hemoglobin 12.4 GM/DL (13.0-17.0) Hematocrit 37.2 % (39.0-51.0) Test 01/09/18 20:02 01/10/18 05:24 01/10/18 16:53 Activated Partial Thromboplast Time 20.1 SEC (24.3-30.1) White Blood Count 12.7 TH/MM3 (4.0-11.0) Hemoglobin 12.5 GM/DL (13.0-17.0) Hematocrit 38.3 % (39.0-51.0) Monocytes (%) (Auto) 9.1 % (0.0-8.0) Neutrophils # (Auto) 8.0 TH/MM3 (1.8-7.7) Monocytes # (Auto) 1.2 TH/MM3 (0-0.9) Calcium Level 8.4 MG/DL (8.5-10.1) Estimat Glomerular Filtration Rate 66 ML/MIN (>89) Hemoglobin A1c 8.8 % (4.3-6.0) PE at Discharge GENERAL: Obese, oxygen dependent SKIN: Warm and dry. HEAD: Normocephalic. EYES: No scleral icterus. No injection or drainage. NECK: Supple, trachea midline. No JVD or lymphadenopathy. CARDIOVASCULAR: Sinus rhythm edema without murmurs, gallops, or rubs. RESPIRATORY: Breath sounds equal bilaterally. No accessory muscle use. GASTROINTESTINAL: Abdomen soft, non-tender, nondistended. EXTREMITIES: No cyanosis, or edema. NEUROLOGICAL: Awake, alert, and oriented x 3. Non-focal. Hospital Course 67M with h/o atrial fibrillation, DM2, COPD, prior stent placement, was admitted on January 09 with episode of chest pain that he awoke from and atrial fibrillation with RVR. 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 He had some atrial fibrillation related edema which was resolved with diuresis. Some discomfort with recumbance persisted. D-Dimer screen was negative. ECHO showed EF = 55% with no evidence for pericarditis. Further history reveals that he has a history of undiagnosed sleep apnea and has a sleep study scheduled as an outpatient. I strongly suggested that he follow up to obtain a CPAP since the timing of his dyspnea and chest pain episodes seem to line up with his history of sleep apnea. He is being treated as an outpatient with Decadron and Levaquin, both as IV, I will switch these to PO to simplify his treatment plan. He has been cleared by cardiology and is stable for discharge today. Pt Condition on Discharge: Good Discharge Disposition: Discharge Home Discharge Time: <= 30 minutes Discharge Instructions DIET: Follow Instructions for: Diabetic Diet Speech Therapy-Diet Recommends: Regular Activities you can perform: Regular-No Restrictions Benja Simmons MD Jan 11, 2018 17:01
[2018-01-11] MEDS: LEVOFLOXACIN 500 MG PREMIX INJ 100 ML IV SCH (17:02)
[2018-01-11] MEDS ORDERED: LEVA500T33 PO (17:16)
[2018-01-11] MEDS ORDERED: ASPI81 PO (17:16)
[2018-01-11] MEDS ORDERED: PLAV75TA29 PO (17:16)
[2018-01-11] MEDS ORDERED: MEDR4PAK PO (17:16)
[2018-01-12] MEDS ORDERED: PROM25TA10 PO (22:21)
== END 2018-01-11 18:17 | disposition home or self-care (01) | DRG 247 ==
LOC: NEPC 00:25 → NEDA 03:27 → NEDH 07:43 → NEDA 09:57 → NEDH 11:00 → HCIS 14:06
PROVIDERS: ADMIT Family Medicine; ATTEND Family Medicine
PROC: 4A023N7 Measurement of Cardiac Sampling and Pressure, Left Heart, Percutaneous Approach (ICD-10-PCS; 2018-01-09)
PROC: B2111ZZ Fluoroscopy of Multiple Coronary Arteries using Low Osmolar Contrast (ICD-10-PCS; 2018-01-09)
PROC: 027034Z Dilation of Coronary Artery, One Artery with Drug-eluting Intraluminal Device, Percutaneous Approach (ICD-10-PCS; principal; 2018-01-09 11:15)
DX: I21.4 Non-ST elevation (NSTEMI) myocardial infarction (principal); N17.9 Acute kidney failure, unspecified; I11.0 Hypertensive heart disease with heart failure; I48.91 Unspecified atrial fibrillation; Z68.41 Body mass index [BMI] 40.0-44.9, adult; I50.9 Heart failure, unspecified; I25.119 Atherosclerotic heart disease of native coronary artery with unspecified angina pectoris; J44.9 Chronic obstructive pulmonary disease, unspecified; I35.0 Nonrheumatic aortic (valve) stenosis; G89.4 Chronic pain syndrome; E11.9 Type 2 diabetes mellitus without complications; Z79.4 Long term (current) use of insulin; E66.9 Obesity, unspecified; Z82.49 Family history of ischemic heart disease and other diseases of the circulatory system; H91.93 Unspecified hearing loss, bilateral; M54.9 Dorsalgia, unspecified; J06.9 Acute upper respiratory infection, unspecified; M79.7 Fibromyalgia; K21.9 Gastro-esophageal reflux disease without esophagitis; E78.00 Pure hypercholesterolemia, unspecified; G47.30 Sleep apnea, unspecified; R60.9 Edema, unspecified; Z80.1 Family history of malignant neoplasm of trachea, bronchus and lung; Z87.891 Personal history of nicotine dependence; Z87.442 Personal history of urinary calculi; Z79.01 Long term (current) use of anticoagulants; Z95.5 Presence of coronary angioplasty implant and graft; Z86.73 Personal history of transient ischemic attack (TIA), and cerebral infarction without residual deficits; Z83.3 Family history of diabetes mellitus
CPT/HCPCS: 71045; 80048; 82550; 82552; 82948; 83036; 83605; 83735; 84484; 85002; 85025; 85027; 85379; 85610; 85730; 86850; 86900; 86901; 87040; 92928; 93005; 93306; 93458; 94640; 94664; 96365; 96366; 96367; 96375; 96376; C1725; C1760; C1769; C1874; C1887; C1893; G0269; J0282; J0360; J1100; J1170; J1644; J1815; J1940; J1956; J2405; J2543; J2765; J3010; J3370; J7030; J7040; Q9967

== ENCOUNTER 2018-01-12 19:15 | Emergency (ER) | payer MEDICARE ==
[~2018-01-12] VITALS: Ht 182.9 cm; Wt 150.0 kg
[~2018-01-12 19:15] MED LIST changes: -ALBU6.7H INH; +ASPI81 PO; +LEVA500T33 PO; +MEDR4PAK PO; +PLAV75TA29 PO
[2018-01-12 19:36] VITALS: BP 172/77; PULSE 73; RESP 16; TEMP 98.3; O2SAT 96
[2018-01-12 19:49] VITALS: BP 130/68; PULSE 86; RESP 20; O2SAT 97
--- NOTE | 2018-01-12 19:56 | PD ---
HPI Chief Complaint: Medical Clearance Time Seen by Provider: 19:44 Travel History International Travel<30 days: No Contact w/Intl Traveler<30days: No Traveled to known affect area: No History of Present Illness HPI This is a 67-year-old male presents for evaluation of right sided abdominal/ groin pain. Symptoms started 3 hours ago after taking a nap. The pain is a sharp pain which is constant, worse with movement. The patient was admitted on January 09, found to have NSTEMI, atrial fibrillation. He underwent cardiac catheterization, right femoral access, underwent RCA stenting. Currently he is on Eliquis. He endorses some nausea. Denies chest pain or shortness of breath , fevers or chills, flank pain. He has no other complaints at this time. PFSH Past Medical History Hx Anticoagulant Therapy: Yes Anemia: Yes Arthritis: Yes Asthma: Yes Atrial Fibrillation: Yes Autoimmune Disease: No Anxiety: Yes Depression: Yes Heart Rhythm Problems: Yes Cancer: Yes (PROSTATE 2008, L BREAST 2006--ALSO REMOVED LYMPH NODES, COLON 2002 ) Cardiac Catheterization: Yes Cardiovascular Problems: Yes High Cholesterol: Yes Chemotherapy: No Chest Pain: Yes Congestive Heart Failure: Yes COPD: Yes Cerebrovascular Accident: No Coronary Artery Disease: Yes Diabetes: Yes Patient Takes Glucophage: No Diminished Hearing: Yes (bilateral aids) Endocrine: Yes Fibromyalgia: Yes Gastrointestinal Disorders: Yes (OCC ACID REFLUX) GERD: Yes Glaucoma: No Genitourinary: Yes Headaches: Yes Hepatitis: No Hiatal Hernia: Yes Hypertension: Yes Immune Disorder: No Implanted Vascular Access Dvce: Yes Kidney Stones: Yes Musculoskeletal: Yes Neurologic: Yes Psychiatric: Yes Reproductive: No Respiratory: Yes (COPD ASTHMA) Integumentary: No Immunizations Current: Yes Migraines: Yes Pancreatitis: Yes Pneumonia: Yes Radiation Therapy: No Renal Failure: No Seizures: No Sleep Apnea: No Thyroid Disease: Yes Ulcer: Yes Past Surgical History Abdominal Surgery: Yes (HERNIA REPAIR X 2; COLON RESECTION R/T DIVERTICULITIS, COLON CA 2002) Appendectomy: Yes Body Medical Devices: loop recorder, CAGE AND SCREWS L5-S1, CARDIAC STENT Cardiac Surgery: Yes (ABLATION X 2 2015, stent 1995) Cholecystectomy: Yes Coronary Artery Bypass Graft: No Coronary Stent: Yes (X1) Ear Surgery: No Endocrine Surgery: No Eye Surgery: No Genitourinary Surgery: Yes (PROSTATECTOMY 2008) Gynecologic Surgery: No Hysterectomy: No Neurologic Surgery: Yes (BACK/NECK SURGERY) Oral Surgery: No Prostatectomy: Yes Thoracic Surgery: Yes (L BREAST 2006--ALSO REMOVED LYMPH NODES) Other Surgery: Yes (NECK AND BACK-L5, S1, ABLATIONX2 2015) Family History Family Myocardial Infarction: Yes Social History Alcohol Use: Yes (Occ) Tobacco Use: No (2003 QUIT) Substance Use: No Allergies-Medications (Allergen,Severity, Reaction): Coded Allergies: adhesive (Unverified Allergy, Severe, Rash, 01/12/18) atorvastatin (Unverified Allergy, Severe, MUSCLE WEAKNESS, 01/12/18) pravastatin (Unverified Allergy, Severe, MUSCLE WEAKNESS, 01/12/18) rosuvastatin (Unverified Allergy, Severe, MUSCLE WEAKNESS, 01/12/18) morphine (Unverified Adverse Reaction, Severe, BECOMES VERY AGGRESSIVE, ) Reported Meds & Prescriptions Reported Meds & Active Scripts Active Phenergan (Promethazine HCl) 25 Mg Tablet 25 Mg PO Q6H PRN Medrol Dosepak (Methylprednisolone) 4 Mg Dspk 4 Mg PO DIRECTED Per Pharmacist direction Levaquin (Levofloxacin) 500 Mg Tablet 500 Mg PO DAILY 5 Days Tgt Aspirin (Aspirin) 81 Mg Chw 81 Mg PO DAILY 30 Days Stop after 30 days Plavix (Clopidogrel Bisulfate) 75 Mg Tab 75 Mg PO DAILY 30 Days Reported Novolog Inj (Insulin Aspart) 100 Unit/Ml Inj 25 Units SQ HS Percocet (Oxycodone-Acetaminophen) 10-325 mg Tab 1 Tab PO Q6H PRN Coq10 (Coenzyme Q10 (Ubidecarenone)) 30 Mg Cap 30 Mg PO DAILY Isosorbide Mononitrate 20 Mg Tab 30 Mg PO DAILY Take 2 doses [address]. [address] (Duloxetine HCl) 60 Mg Capdr 60 Mg PO DAILY Metoprolol Tartrate 75 Mg Tab 75 Mg PO BID Losartan-Hydrochlorothiazide 100-25 Mg Tab 1 Tab PO DAILY Pantoprazole (Pantoprazole Sodium) 40 Mg Tab 40 Mg PO HS Nitroglycerin SL (Nitroglycerin) 0.4 Mg Subl 0.4 Mg SL DIRECTED PRN ONE TABLET UNDER THE TONGUE NEEDED FOR CHEST PAIN, MAY REPEAT EVERY FIVE MINUTES FOR A TOTAL OF 3 DOSES OR CALL 911 IF NO RELIEF Carafate (Sucralfate) 1 Gm Tab 1 Gm PO BID On empty stomach Eliquis (Apixaban) 5 Mg Tab 5 Mg PO BID Albuterol Neb (Albuterol Sulfate) 2.5 Mg/0.5 Ml Neb 2.5 Mg NEB Q6HR NEB PRN Note: The Albuterol Sulfate Inhalation Solution is concentrated and must be diluted. Read complete instructions carefully before using. Novolin N Inj (Insulin Human NPH) 100 Unit/Ml Inj 100 Units SQ BID Gabapentin 600 Mg Tab 600 Mg PO BID Atorvastatin (Atorvastatin Calcium) 10 Mg Tab 10 Mg PO HS Glimepiride 1 Mg Tab 2 Mg PO DAILY Take with breakfast or first main meal Amlodipine (Amlodipine Besylate) 5 Mg Tab 5 Mg PO DAILY Review of Systems Except as stated in HPI: all other systems reviewed are Neg Physical Exam Narrative GENERAL: Well-developed well-nourished male in no acute distress. SKIN: Warm and dry. Ecchymosis noted in the right inguinal region. HEAD: Atraumatic. Normocephalic. EYES: Pupils equal and round. No scleral icterus. No injection or drainage. ENT: No nasal bleeding or discharge. Mucous membranes pink and moist. NECK: Trachea midline. No JVD. CARDIOVASCULAR: Regular rate and rhythm. No murmur appreciated. RESPIRATORY: No accessory muscle use. Clear to auscultation. Breath sounds equal bilaterally. GASTROINTESTINAL: Abdomen soft, tender to palpation in the right upper and lower quadrants without guarding. MUSCULOSKELETAL: No obvious deformities. No clubbing. No cyanosis. No lower extremity edema. 2+ dorsalis pedis pulse bilaterally. NEUROLOGICAL: Awake and alert. No obvious cranial nerve deficits. Motor grossly within normal limits. Normal speech. Data Data Last Documented VS Vital Signs Date Time Temp Pulse Resp B/P (MAP) Pulse Ox O2 Delivery O2 Flow Rate FiO2 01/12/18 21:05 68 20 141/69 (93) 97 Room Air 01/12/18 19:36 98.3 Orders Orders Complete Blood Count With Diff (01/12/18 19:52) Comprehensive Metabolic Panel (01/12/18 19:52) Lipase (01/12/18 19:52) Prothrombin Time / Inr (Pt) (01/12/18 19:52) Act Partial Throm Time (Ptt) (01/12/18 19:52) Ct Abd/Pel W Iv Contrast(Rout) (01/12/18 19:52) Iv Access Insert/Monitor (01/12/18 19:52) Ondansetron Inj (Zofran Inj) (01/12/18 20:00) Chest, Single Ap (01/12/18 19:52) Hydromorphone Pf Inj (Dilaudid Pf Inj) (01/12/18 20:00) Electrocardiogram (01/12/18 ) Iohexol 350 Inj (Omnipaque 350 Inj) (01/12/18 21:33) Ed Discharge Order (01/12/18 22:28) Labs Laboratory Tests Test 01/12/18 19:55 White Blood Count 18.9 TH/MM3 Red Blood Count 5.10 MIL/MM3 Hemoglobin 14.1 GM/DL Hematocrit 42.5 % Mean Corpuscular Volume 83.3 FL Mean Corpuscular Hemoglobin 27.7 PG Mean Corpuscular Hemoglobin Concent 33.2 % Red Cell Distribution Width 15.0 % Platelet Count 353 TH/MM3 Mean Platelet Volume 8.1 FL Neutrophils (%) (Auto) 67.4 % Lymphocytes (%) (Auto) 24.6 % Monocytes (%) (Auto) 6.4 % Eosinophils (%) (Auto) 0.4 % Basophils (%) (Auto) 1.2 % Neutrophils # (Auto) 12.7 TH/MM3 Lymphocytes # (Auto) 4.6 TH/MM3 Monocytes # (Auto) 1.2 TH/MM3 Eosinophils # (Auto) 0.1 TH/MM3 Basophils # (Auto) 0.2 TH/MM3 CBC Comment DIFF FINAL Differential Comment Prothrombin Time 9.8 SEC Prothromb Time International Ratio 1.0 RATIO Activated Partial Thromboplast Time 22.0 SEC Blood Urea Nitrogen 22 MG/DL Creatinine 1.27 MG/DL Random Glucose 234 MG/DL Total Protein 7.3 GM/DL Albumin 3.3 GM/DL Calcium Level 8.7 MG/DL Alkaline Phosphatase 78 U/L Aspartate Amino Transf (AST/SGOT) 34 U/L Alanine Aminotransferase (ALT/SGPT) 40 U/L Total Bilirubin 0.5 MG/DL Sodium Level 138 MEQ/L Potassium Level 3.8 MEQ/L Chloride Level 101 MEQ/L Carbon Dioxide Level 26.9 MEQ/L Anion Gap 10 MEQ/L Estimat Glomerular Filtration Rate 57 ML/MIN Lipase 170 U/L MDM Medical Decision Making Medical Screen Exam Complete: Yes Emergency Medical Condition: Yes Medical Record Reviewed: Yes Differential Diagnosis Pseudoaneurysm, hematoma, colitis, ruptured viscus, biliary colic Narrative Course The patient was placed on ECG monitoring, 12-lead EKG obtained, lab work, CT abdomen and pelvis has been ordered. The patient will be given IV analgesics and antiemetics. CT abdomen and pelvis reveals CONCLUSION: 1. No acute findings within the abdomen and pelvis. Postoperative changes as above. No right sided inguinal hernia. There is some fat in the left inguinal canal. CBC reveals WBC count of 18.9 with no left shift, consistent with previous recent CBC results on file. No evidence of infectious process clinically or on imaging studies. CMP reveals a BUN of 22, glucose of 234. Upon reexamination the patient does feel improved. At this point in time the plan will be discharged the patient with a short course of antiemetic medication. He currently takes Percocet for chronic back pain. Discussed signs and symptoms that would warrant returning to the emergency room. Stable for discharge. Examined with my attending who agrees with plan of care. Diagnosis Primary Impression: Abdominal pain Additional Instructions: Use your at home pain medication as needed. Phenergan for nausea. Ice pack to the affected area several times a day 20 minutes at a time. Follow-up with primary care physician and return for any acutely new or worsening symptoms. Med/Other Pt SpecificInfo: Prescription(s) given Scripts Promethazine (Phenergan) 25 Mg Tablet 25 MG PO Q6H Y for NAUSEA OR VOMITING, #20 TAB 0 Refills Prov: Vineet Seals MD 01/12/18 Disposition: 01 DISCHARGE HOME Condition: Stable Jackson Laguerre Jan 12, 2018 19:56
[2018-01-12] MEDS ORDERED: HYDROmorphone HCL PF 0.5 MG/0.5 ML SYRINGE IV PUSH ONE (20:00)
[2018-01-12] MEDS ORDERED: ONDANSETRON HCL 4 MG/2 ML VIAL IVP ONE (20:00)
[2018-01-12 20:16] LABS: AUTOMATED NEUTROPHIL # 12.7 TH/MM3 (1.8-7.7); BASOPHIL # 0.2 TH/MM3 (0-0.2); BASOPHIL % 1.2 % (0.0-2.0); EOSINOPHIL # 0.1 TH/MM3 (0-0.4); EOSINOPHIL % 0.4 % (0.0-4.0); HEMATOCRIT 42.5 % (39.0-51.0); HEMOGLOBIN 14.1 GM/DL (13.0-17.0); LYMPH % 24.6 % (9.0-44.0); LYMPHOCYTE # 4.6 TH/MM3 (1.0-4.8); MEAN CELL VOLUME 83.3 FL (80.0-100.0); MEAN CORPUSCULAR HEMOGLOBIN 27.7 PG (27.0-34.0); MEAN CORPUSCULAR HGB CONC 33.2 % (32.0-36.0); MEAN PLATELET VOLUME 8.1 FL (7.0-11.0); MONO % 6.4 % (0.0-8.0); MONOCYTE # 1.2 TH/MM3 (0-0.9); NEUT % 67.4 % (16.0-70.0); PLATELET COUNT 353 TH/MM3 (150-450); WHITE BLOOD COUNT 18.9 TH/MM3 (4.0-11.0)
[2018-01-12 20:29] LABS: PROTHROMBIN TIME - PATIENT 9.8 SEC (9.8-11.6)
[2018-01-12 20:47] LABS: ALBUMIN 3.3 GM/DL (3.4-5.0); ALKALINE PHOSPHATASE 78 U/L (45-117); ALT (GPT) 40 U/L (12-78); AST (GOT) 34 U/L (15-37); BICARBONATE 26.9 MEQ/L (21.0-32.0); BLOOD UREA NITROGEN 22 MG/DL (7-18); CALCIUM 8.7 MG/DL (8.5-10.1); CHLORIDE 101 MEQ/L (98-107); CREATININE 1.27 MG/DL (0.60-1.30); GLOMERULAR FILTRATION RATE 57 ML/MIN (>89); GLUCOSE,RANDOM 234 MG/DL (74-106); SODIUM (NA) 138 MEQ/L (136-145); TOTAL BILIRUBIN ADULT 0.5 MG/DL (0.2-1.0); TOTAL PROTEIN 7.3 GM/DL (6.4-8.2)
--- NOTE | 2018-01-12 20:55 | RADRPT ---
EXAM DATE/TIME: 01/12/2018 20:09 [facility] COMPARISON: No previous studies available for comparison. INDICATIONS : Right sided chest pain MEDICAL HISTORY : Cardiovascular disease. Pancreatitis. Carcinoma, colon. Prostate cancer.Hernia. Diabetes SURGICAL HISTORY : Fusion, lumbar. Loop recorder, Appendectomy. Cholecystectomy.Colon resection.Prostatectomy. Hernia re pair ENCOUNTER: Initial ACUITY: 1 day PAIN SCORE: 9/10 LOCATION: Right chest FINDINGS: A single view of the chest demonstrates the lungs to be symmetrically aerated without evidence of mas s, infiltrate or effusion. Minimal basilar atelectasis. The cardiomediastinal contours are unremarkab le. Osseous structures are intact. CONCLUSION: 1. No acute findings. Loop recorder. Minimal basilar atelectasis. Alexander Ballesteros MD on January 12, 2018 at 20:51 Board Certified Radiologist. This report was verified electronically.
[2018-01-12 21:05] VITALS: BP 141/69; PULSE 68; RESP 20; O2SAT 97
[2018-01-12] MEDS ORDERED: IOHEXOL 350 MG/ML 10 ML VIAL (for RAD DIAG) IVCONTRAST ONE (21:33)
--- NOTE | 2018-01-12 22:12 | RADRPT ---
EXAM DATE/TIME: 01/12/2018 21:23 [facility] COMPARISON: No previous studies available for comparison. INDICATIONS : Lower abdominal and right groin pain. IV CONTRAST: 90 cc Omnipaque 350 (iohexol) IV ORAL CONTRAST: No oral contrast ingested. RADIATION DOSE: 36.33 CTDIvol (mGy) ; Patient body habitus MEDICAL HISTORY : Carcinoma, colon. Carcinoma, rectal. Renal calculi.Diabetes SURGICAL HISTORY : Appendectomy. Cholecystectomy.Hiatal hernia repair ENCOUNTER: Initial ACUITY: 1 day PAIN SCALE: 8/10 LOCATION: Right lower quadrant abdomen TECHNIQUE: Volumetric scanning of the abdomen and pelvis was performed. Using automated exposure control and ad justment of the mA and/or kV according to patient size, radiation dose was kept as low as reasonably achievable to obtain optimal diagnostic quality images. DICOM format image data is available electro nically for review and comparison. FINDINGS: Lung bases are clear. Mild fatty liver. Spleen, adrenals and pancreas unremarkable. Small right renal cyst. Left kidney unremarkable. Previous cholecystectomy and prostatectomy. Previous fusion lower corazon mbar spine. Colonic diverticula are present. No free fluid. No bowel obstruction. Postoperative appendectomy. CONCLUSION: 1. No acute findings within the abdomen and pelvis. Postoperative changes as above. No right sided in guinal hernia. There is some fat in the left inguinal canal. Alexander Ballesteros MD on January 12, 2018 at 22:00 Board Certified Radiologist. This report was verified electronically.
[2018-01-12] MEDS ORDERED: PROM25TA10 PO (22:21)
--- NOTE | 2018-01-14 00:30 | EKG ---
Date Performed: 01/12/2018 Time Performed: 20:03:06 PTAGE: 67 years EKG: PROBABLE Sinus rhythm NONSPECIFIC T-WAVE ABNORMALITY ABNORMAL RHYTHM ECG PREVIOUS TRACING : 01/09/2018 07.58 Compared to previous tracing, rate has increased DOCTOR: Zelalem Thompson Interpretating Date/Time 01/14/2018 00:28:33
== END 2018-01-12 22:43 | disposition home or self-care (01) ==
LOC: NEPC 19:15
DX: R94.31 Abnormal electrocardiogram [ECG] [EKG] (principal); R11.0 Nausea; R10.9 Unspecified abdominal pain; I48.91 Unspecified atrial fibrillation; D64.9 Anemia, unspecified; I50.9 Heart failure, unspecified; I11.0 Hypertensive heart disease with heart failure; E11.9 Type 2 diabetes mellitus without complications; M79.7 Fibromyalgia; K21.9 Gastro-esophageal reflux disease without esophagitis; Z79.01 Long term (current) use of anticoagulants; Z79.4 Long term (current) use of insulin; Z87.442 Personal history of urinary calculi; Z87.891 Personal history of nicotine dependence; Z88.5 Allergy status to narcotic agent
CPT/HCPCS: 71045; 74177; 80053; 83690; 85025; 85610; 85730; 93005; 96374; 96375; 99285; J1170; J2405; Q9967

== ENCOUNTER 2018-01-30 21:21 | Inpatient (IN) | payer MEDICARE ==
[~2018-01-30] VITALS: Ht 182.9 cm; Wt 152.3 kg
[2018-01-30] MEDS: AMIODARONE INJ 150 MG in DEXTROSE 5% IN WATER 100ML INJ 97 ML IV ONE ×2 (00:20)
[~2018-01-30 21:21] MED LIST changes: +PROM25TA10 PO
[2018-01-30 21:25] VITALS: BP 182/90; PULSE 100; RESP 22; TEMP 98.5; O2SAT 97
[2018-01-30] MEDS ORDERED: NITROGLYCERIN 2% OINT 1 GM PACKET TOP ONE (21:30)
[2018-01-30] MEDS ORDERED: SODIUM CHLORIDE 0.9% FLUSH 10 ML FLUSH IVF PRN (21:30)
--- NOTE | 2018-01-30 21:32 | PD ---
HPI Chief Complaint: Chest pain, palpitations Time Seen by Provider: 21:23 Travel History International Travel<30 days: No Contact w/Intl Traveler<30days: No History of Present Illness HPI Patient 67-year-old male with a history of metabolic syndrome, coronary artery disease, atrial fibrillation on Eliquis and Plavix presents emergency department for evaluation of chest pain atrial fibrillation with RVR. Patient states he felt palpitations on the couch while doing nothing tonight it was associate with some chest tightness which gradually worsened. He called [phone] arrived and found him to be A. fib RVR in the high 150s, Cardizem IV bolus was given and his pain had resolved with that +3 of nitroglycerin. Fire also gave 324 of aspirin prior to arrival. Patient states his been taking his medications. Patient a recent admission to this hospital on January 09 for a non-ST elevation myocardial infarction with occluded right coronary artery. Dr. Thompson placed in [place] drug-eluting stent to the occluded right coronary artery. On that admission. Pain was fairly severe, associated with palpitations, context as above, nearly resolved, PFSH Past Medical History Hx Anticoagulant Therapy: Yes Anemia: Yes Arthritis: Yes Asthma: Yes Atrial Fibrillation: Yes Autoimmune Disease: No Anxiety: Yes Depression: Yes Heart Rhythm Problems: Yes Cancer: Yes (PROSTATE 2008, L BREAST 2006--ALSO REMOVED LYMPH NODES, COLON 2002 ) Cardiac Catheterization: Yes Cardiovascular Problems: Yes High Cholesterol: Yes Chemotherapy: No Chest Pain: Yes Congestive Heart Failure: Yes COPD: Yes Cerebrovascular Accident: No Coronary Artery Disease: Yes Diabetes: Yes Diminished Hearing: Yes (bilateral aids) Endocrine: Yes Fibromyalgia: Yes Gastrointestinal Disorders: Yes (OCC ACID REFLUX) GERD: Yes Glaucoma: No Genitourinary: Yes Headaches: Yes Hepatitis: No Hiatal Hernia: Yes Hypertension: Yes Immune Disorder: No Implanted Vascular Access Dvce: Yes Kidney Stones: Yes Musculoskeletal: Yes Neurologic: Yes Psychiatric: Yes Reproductive: No Respiratory: Yes (COPD ASTHMA) Integumentary: No Immunizations Current: Yes Migraines: Yes Pancreatitis: Yes Pneumonia: Yes Radiation Therapy: No Renal Failure: No Seizures: No Sleep Apnea: No Thyroid Disease: Yes Ulcer: Yes Past Surgical History Abdominal Surgery: Yes (HERNIA REPAIR X 2; COLON RESECTION R/T DIVERTICULITIS, COLON CA 2002) Appendectomy: Yes Body Medical Devices: loop recorder, CAGE AND SCREWS L5-S1, CARDIAC STENT Cardiac Surgery: Yes (ABLATION X 2 2015, stent 1995) Cholecystectomy: Yes Coronary Artery Bypass Graft: No Coronary Stent: Yes (X1) Ear Surgery: No Endocrine Surgery: No Eye Surgery: No Genitourinary Surgery: Yes (PROSTATECTOMY 2008) Gynecologic Surgery: No Hysterectomy: No Neurologic Surgery: Yes (BACK/NECK SURGERY) Oral Surgery: No Prostatectomy: Yes Thoracic Surgery: Yes (L BREAST 2006--ALSO REMOVED LYMPH NODES) Other Surgery: Yes (NECK AND BACK-L5, S1, ABLATIONX2 2016) Social History Alcohol Use: Yes (Occ) Tobacco Use: No (2003 QUIT) Substance Use: No Allergies-Medications (Allergen,Severity, Reaction): Coded Allergies: adhesive (Unverified Allergy, Severe, Rash, 01/30/18) atorvastatin (Unverified Allergy, Severe, MUSCLE WEAKNESS, 01/30/18) pravastatin (Unverified Allergy, Severe, MUSCLE WEAKNESS, 01/30/18) rosuvastatin (Unverified Allergy, Severe, MUSCLE WEAKNESS, 01/30/18) morphine (Unverified Adverse Reaction, Severe, BECOMES VERY AGGRESSIVE, 01/30/18) Reported Meds & Prescriptions Reported Meds & Active Scripts Active Phenergan (Promethazine HCl) 25 Mg Tablet 25 Mg PO Q6H PRN Medrol Dosepak (Methylprednisolone) 4 Mg Dspk 4 Mg PO DIRECTED Per Pharmacist direction Tgt Aspirin (Aspirin) 81 Mg Chw 81 Mg PO DAILY 30 Days Stop after 30 days Plavix (Clopidogrel Bisulfate) 75 Mg Tab 75 Mg PO DAILY 30 Days Reported Novolog Inj (Insulin Aspart) 100 Unit/Ml Inj 25 Units SQ HS Percocet (Oxycodone-Acetaminophen) 10-325 mg Tab 1 Tab PO Q6H PRN Coq10 (Coenzyme Q10 (Ubidecarenone)) 30 Mg Cap 30 Mg PO DAILY Isosorbide Mononitrate 20 Mg Tab 30 Mg PO DAILY Take 2 doses [address]. [address] (Duloxetine HCl) 60 Mg Capdr 60 Mg PO DAILY Metoprolol Tartrate 75 Mg Tab 75 Mg PO BID Losartan-Hydrochlorothiazide 100-25 Mg Tab 1 Tab PO DAILY Pantoprazole (Pantoprazole Sodium) 40 Mg Tab 40 Mg PO HS Nitroglycerin SL (Nitroglycerin) 0.4 Mg Subl 0.4 Mg SL DIRECTED PRN ONE TABLET UNDER THE TONGUE NEEDED FOR CHEST PAIN, MAY REPEAT EVERY FIVE MINUTES FOR A TOTAL OF 3 DOSES OR CALL 911 IF NO RELIEF Carafate (Sucralfate) 1 Gm Tab 1 Gm PO BID On empty stomach Eliquis (Apixaban) 5 Mg Tab 5 Mg PO BID Albuterol Neb (Albuterol Sulfate) 2.5 Mg/0.5 Ml Neb 2.5 Mg NEB Q6HR NEB PRN Note: The Albuterol Sulfate Inhalation Solution is concentrated and must be diluted. Read complete instructions carefully before using. Novolin N Inj (Insulin Human NPH) 100 Unit/Ml Inj 100 Units SQ BID Gabapentin 600 Mg Tab 600 Mg PO BID Atorvastatin (Atorvastatin Calcium) 10 Mg Tab 10 Mg PO HS Glimepiride 1 Mg Tab 2 Mg PO DAILY Take with breakfast or first main meal Amlodipine (Amlodipine Besylate) 5 Mg Tab 5 Mg PO DAILY Review of Systems Except as stated in HPI: all other systems reviewed are Neg Physical Exam Narrative GENERAL: Well-developed morbidly obese male in no obvious distress SKIN: Focused skin assessment warm/dry. HEAD: Atraumatic. Normocephalic. EYES: Pupils equal and round. No scleral icterus. No injection or drainage. ENT: No nasal bleeding or discharge. Mucous membranes pink and moist. NECK: Trachea midline. No JVD. CARDIOVASCULAR: Regular rate and rhythm. No murmur appreciated. 2+ bilateral equal pulses in all 4 extremities per RESPIRATORY: No accessory muscle use. Clear to auscultation. Breath sounds equal bilaterally. GASTROINTESTINAL: Abdomen soft, non-tender, nondistended. Hepatic and splenic margins not palpable. MUSCULOSKELETAL: No obvious deformities. No clubbing. No cyanosis. No edema. NEUROLOGICAL: Awake and alert. No obvious cranial nerve deficits. Motor grossly within normal limits. Normal speech. PSYCHIATRIC: Appropriate mood and affect; insight and judgment normal. Data Data Last Documented VS Vital Signs Date Time Temp Pulse Resp B/P (MAP) Pulse Ox O2 Delivery O2 Flow Rate FiO2 01/30/18 22:39 93 159/79 (105) 95 2.00 01/30/18 21:25 98.5 22 Orders Orders Electrocardiogram (01/30/18 21:23) Ckmb (Isoenzyme) Profile (01/30/18 21:23) Complete Blood Count With Diff (01/30/18 21:23) Comprehensive Metabolic Panel (01/30/18 21:23) Magnesium (Mg) (01/30/18 21:23) Prothrombin Time / Inr (Pt) (01/30/18 21:23) Act Partial Throm Time (Ptt) (01/30/18 21:23) Troponin I (01/30/18 21:23) Chest, Single Ap (01/30/18 21:23) Ecg Monitoring (01/30/18 21:23) Iv Access Insert/Monitor (01/30/18 21:23) Oximetry (01/30/18 21:23) Oxygen Administration (01/30/18 21:23) Nitroglycerin 2% Oint (Nitroglycerin 2% (01/30/18 21:30) Sodium Chloride 0.9% Flush (Ns Flush) (01/30/18 21:30) CKMB (01/30/18 21:36) CKMB% (01/30/18 21:36) Dextrose 5% In Wate... W/Amiodarone Inj (01/30/18 23:13) Dextrose 5% In [place]... W/Amiodarone Inj (01/30/18 22:58) Sodium Chlor 0.9% (... W/Amiodarone Inj (01/30/18 23:30) Labs Laboratory Tests Test 01/30/18 21:36 White Blood Count 11.5 TH/MM3 Red Blood Count 4.59 MIL/MM3 Hemoglobin 12.9 GM/DL Hematocrit 37.9 % Mean Corpuscular Volume 82.6 FL Mean Corpuscular Hemoglobin 28.1 PG Mean Corpuscular Hemoglobin Concent 34.0 % Red Cell Distribution Width 14.9 % Platelet Count 267 TH/MM3 Mean Platelet Volume 7.9 FL Neutrophils (%) (Auto) 60.2 % Lymphocytes (%) (Auto) 28.4 % Monocytes (%) (Auto) 8.3 % Eosinophils (%) (Auto) 2.0 % Basophils (%) (Auto) 1.1 % Neutrophils # (Auto) 6.9 TH/MM3 Lymphocytes # (Auto) 3.3 TH/MM3 Monocytes # (Auto) 0.9 TH/MM3 Eosinophils # (Auto) 0.2 TH/MM3 Basophils # (Auto) 0.1 TH/MM3 CBC Comment DIFF FINAL Differential Comment Prothrombin Time 9.5 SEC Prothromb Time International Ratio 0.9 RATIO Activated Partial Thromboplast Time 22.6 SEC Blood Urea Nitrogen 15 MG/DL Creatinine 1.68 MG/DL Random Glucose 364 MG/DL Total Protein 6.7 GM/DL Albumin 3.3 GM/DL Calcium Level 8.7 MG/DL Magnesium Level 1.9 MG/DL Alkaline Phosphatase 89 U/L Aspartate Amino Transf (AST/SGOT) 25 U/L Alanine Aminotransferase (ALT/SGPT) 32 U/L Total Bilirubin 0.3 MG/DL Sodium Level 138 MEQ/L Potassium Level 3.7 MEQ/L Chloride Level 102 MEQ/L Carbon Dioxide Level 22.5 MEQ/L Anion Gap 14 MEQ/L Estimat Glomerular Filtration Rate 41 ML/MIN Total Creatine Kinase 110 U/L Creatine Kinase MB 3.4 NG/ML Troponin I 0.03 NG/ML [facility] Medical Decision Making Medical Screen Exam Complete: Yes Emergency Medical Condition: Yes Interpretation(s) EKG shows sinus rhythm at a rate of 96, left axis deviation with left anterior fascicular block, poor R-wave progression. No concerning ST segment changes. Intervals within normal limits. This is an abnormal EKG Differential Diagnosis Atrial fibrillation RVR, ACS, NE, restenosis, electrolyte abnormality. Narrative Course Patient room to the emergency department, he was given Cardizem IV as well as nitroglycerin and aspirin in route. He is feeling better still with some mild chest tightness. He has been sinus tachycardia since arrival into the emergency department. Initial EKG nonischemic and troponin negative. Electrolytes reassuring. The patient was discussed with Dr. Camarillo as his group knows the patient is Dr. Thompson did his last catheterization. Vladimir recommends loading with 150 mg of amiodarone and then starting a drip. The patient states he follows now with Dr. Slade, Dr. Camarillo said to put in a consult to Dr. Thompson and they will sort out which hot wort settler is going to see him. I reviewed the patient's EKGs from EMS, he did have atrial fibrillation with a rate of 150. After Cardizem given he converted to normal sinus about 2 minutes later. Patient discussed with Dr. Murcia for admission Diagnosis Primary Impression: Chest pain Additional Impression: Atrial fibrillation with RVR Admitting Information Admitting Physician Requests: Admit Condition: Stable Alok Linder MD January 30, 2018 21:32
[2018-01-30 21:50] LABS: AUTOMATED NEUTROPHIL # 6.9 TH/MM3 (1.8-7.7); BASOPHIL # 0.1 TH/MM3 (0-0.2); BASOPHIL % 1.1 % (0.0-2.0); EOSINOPHIL # 0.2 TH/MM3 (0-0.4); HEMATOCRIT 37.9 % (39.0-51.0); HEMOGLOBIN 12.9 GM/DL (13.0-17.0); LYMPH % 28.4 % (9.0-44.0); LYMPHOCYTE # 3.3 TH/MM3 (1.0-4.8); MEAN CELL VOLUME 82.6 FL (80.0-100.0); MEAN CORPUSCULAR HEMOGLOBIN 28.1 PG (27.0-34.0); MEAN PLATELET VOLUME 7.9 FL (7.0-11.0); MONO % 8.3 % (0.0-8.0); MONOCYTE # 0.9 TH/MM3 (0-0.9); NEUT % 60.2 % (16.0-70.0); PLATELET COUNT 267 TH/MM3 (150-450); RED BLOOD COUNT 4.59 MIL/MM3 (4.50-5.90); RED CELL DISTRIBUTION WIDTH 14.9 % (11.6-17.2); WHITE BLOOD COUNT 11.5 TH/MM3 (4.0-11.0)
--- NOTE | 2018-01-30 22:07 | RADRPT ---
EXAM DATE/TIME: 01/30/2018 21:31 [facility] COMPARISON: CHEST SINGLE AP, January 12, 2018, 20:09. INDICATIONS : Chest pain. MEDICAL HISTORY : Myocardial infarction. Hypertension Chronic obstructive pulmonary disease. asthma. SURGICAL HISTORY : Coronary artery stent. ENCOUNTER: Initial ACUITY: 1 day PAIN SCORE: 7/10 LOCATION: middle chest. FINDINGS: A single view of the chest demonstrates the lungs to be symmetrically aerated without evidence of mas s, infiltrate or effusion. The cardiomediastinal contours are unremarkable. Osseous structures are intact. There is a loop recorder in the left chest. CONCLUSION: No acute disease. Priyank Rosa MD on January 30, 2018 at 22:04 Board Certified Radiologist. This report was verified electronically.
[2018-01-30 22:08] LABS: INTERNATIONAL NORMALIZED RATIO 0.9 RATIO; PROTHROMBIN TIME - PATIENT 9.5 SEC (9.8-11.6)
[2018-01-30 22:14] LABS: ALT (GPT) 32 U/L (12-78)
[2018-01-30 22:19] LABS: ALKALINE PHOSPHATASE 89 U/L (45-117); TOTAL BILIRUBIN ADULT 0.3 MG/DL (0.2-1.0); TOTAL PROTEIN 6.7 GM/DL (6.4-8.2); TROPONIN I 0.03 NG/ML (0.02-0.05)
[2018-01-30 22:21] LABS: ALBUMIN 3.3 GM/DL (3.4-5.0); AST (GOT) 25 U/L (15-37); BICARBONATE 22.5 MEQ/L (21.0-32.0); BLOOD UREA NITROGEN 15 MG/DL (7-18); CALCIUM 8.7 MG/DL (8.5-10.1); CHLORIDE 102 MEQ/L (98-107); CREATININE 1.68 MG/DL (0.60-1.30); GLOMERULAR FILTRATION RATE 41 ML/MIN (>89); GLUCOSE,RANDOM 364 MG/DL (74-106); MAGNESIUM 1.9 MG/DL (1.5-2.5); SODIUM (NA) 138 MEQ/L (136-145)
[2018-01-30 22:39] VITALS: BP 159/79; PULSE 93; O2SAT 95
[2018-01-30] MEDS ORDERED: AMIODARONE INJ 450 MG in DEXTROSE 5% IN WATE(EXCEL) INJ 241 ML IV SCH ×2 (23:13)
[2018-01-31] VITALS (9 sets, daily range): BP systolic 136–178; BP diastolic 74–93; PULSE 50–73; RESP 15–26; TEMP 97.3–98.6; O2SAT 94–98
[2018-01-31] MEDS ORDERED: MAGNESIUM HYDROXIDE SUSP 30 ML CUP PO PRN
[2018-01-31] MEDS ORDERED: BISACODYL 10 MG SUPP RECTAL PRN
[2018-01-31] MEDS ORDERED: RESP: ALBUTEROL 2.5 MG/IPRATROPIUM 0.5 MG NEB (PRN) NEB
[2018-01-31] MEDS ORDERED: PROMETHAZINE HCL 25 MG TAB PO PRN
[2018-01-31] MEDS ORDERED: LACTULOSE SYRUP 20 GM/30 ML CUP PO PRN
[2018-01-31] MEDS ORDERED: SODIUM CHLORIDE 0.9% FLUSH 10 ML FLUSH IV FLUSH PRN
[2018-01-31] MEDS ORDERED: SENNOSIDES 8.6 MG TAB PO PRN
[2018-01-31] MEDS ORDERED: NALOXONE HCL 0.4 MG/ML AMP IV PUSH PRN
[2018-01-31] MEDS: AMIODARONE INJ 150 MG in DEXTROSE 5% IN WATER 100ML INJ 97 ML IV ONE ×2 (00:21)
[2018-01-31] MEDS: AMIODARONE INJ 450 MG in SODIUM CHLOR 0.9% (EXCEL) INJ 241 ML IV SCH ×4 (01:31→22:15)
--- NOTE | 2018-01-31 01:32 | HHI.HP ---
[facility] Service [facility] Hospitalists Primary Care Physician Frederick Jean MD Admission Diagnosis Afib RVR, Chest Pain Diagnoses: Travel History International Travel<30 Days: No Contact w/Intl Traveler <30 Da: No Traveled to Known Affected Are: No History of Present Illness 67-year-old male history CAD, diabetes, hypertension, who presents with acute onset dull substernal chest pain, palpitations around 9 PM while watching TV. Patient found to be A. fib RVR, which resolved with Cardizem IV bolus. Patient reports that chest pain has almost completely resolved. Denies any nausea, vomiting. Patient reports previously feeling fine, and now is feeling much better. Patient with recent admission for ST elevation myocardial infarction with ENRIQUETA to right coronary artery by Dr. Thompson. Past Family Social History Past Medical History Coronary artery disease Chronic back pain COPD Anemia Diabetes mellitus. GERD Depression Hypertension Atrial fibrillation Past Surgical History Cardiac catheterization with stent placement, loop recorder. Most recent cardiac catheterization with stenting 2 weeks ago at [place]. Left patellar surgery Multiple back and neck surgeries. Prostatectomy Reported Medications Reported Meds & Active Scripts Active Phenergan (Promethazine HCl) 25 Mg Tablet 25 Mg PO Q6H PRN Medrol Dosepak (Methylprednisolone) 4 Mg Dspk 4 Mg PO DIRECTED Per Pharmacist direction Tgt Aspirin (Aspirin) 81 Mg Chw 81 Mg PO DAILY 30 Days Stop after 30 days Plavix (Clopidogrel Bisulfate) 75 Mg Tab 75 Mg PO DAILY 30 Days Reported Novolog Inj (Insulin Aspart) 100 Unit/Ml Inj 25 Units SQ HS Percocet (Oxycodone-Acetaminophen) 10-325 mg Tab 1 Tab PO Q6H PRN Coq10 (Coenzyme Q10 (Ubidecarenone)) 30 Mg Cap 30 Mg PO DAILY Isosorbide Mononitrate 20 Mg Tab 30 Mg PO DAILY Take 2 doses [address]. [address] (Duloxetine HCl) 60 Mg Capdr 60 Mg PO DAILY Metoprolol Tartrate 75 Mg Tab 75 Mg PO BID Losartan-Hydrochlorothiazide 100-25 Mg Tab 1 Tab PO DAILY Pantoprazole (Pantoprazole Sodium) 40 Mg Tab 40 Mg PO HS Nitroglycerin SL (Nitroglycerin) 0.4 Mg Subl 0.4 Mg SL DIRECTED PRN ONE TABLET UNDER THE TONGUE NEEDED FOR CHEST PAIN, MAY REPEAT EVERY FIVE MINUTES FOR A TOTAL OF 3 DOSES OR CALL 911 IF NO RELIEF Carafate (Sucralfate) 1 Gm Tab 1 Gm PO BID On empty stomach Eliquis (Apixaban) 5 Mg Tab 5 Mg PO BID Albuterol Neb (Albuterol Sulfate) 2.5 Mg/0.5 Ml Neb 2.5 Mg NEB Q6HR NEB PRN Note: The Albuterol Sulfate Inhalation Solution is concentrated and must be diluted. Read complete instructions carefully before using. Novolin N Inj (Insulin Human NPH) 100 Unit/Ml Inj 100 Units SQ BID Gabapentin 600 Mg Tab 600 Mg PO BID Atorvastatin (Atorvastatin Calcium) 10 Mg Tab 10 Mg PO HS Glimepiride 1 Mg Tab 2 Mg PO DAILY Take with breakfast or first main meal Amlodipine (Amlodipine Besylate) 5 Mg Tab 5 Mg PO DAILY Allergies: Coded Allergies: adhesive (Unverified Allergy, Severe, Rash, 01/30/18) atorvastatin (Unverified Allergy, Severe, MUSCLE WEAKNESS, 01/30/18) pravastatin (Unverified Allergy, Severe, MUSCLE WEAKNESS, 01/30/18) rosuvastatin (Unverified Allergy, Severe, MUSCLE WEAKNESS, 01/30/18) morphine (Unverified Adverse Reaction, Severe, BECOMES VERY AGGRESSIVE, 01/30/18) Family History Father with lung cancer. Mother at age 70. Family history of diabetes, heart disease Social History Patient quit smoking 12 years ago. Occasional alcohol. Denies illicit drugs. 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 Alert and oriented 3. SKIN: No rashes, ecchymoses or lesions. Cool and dry. HEAD: Atraumatic. Normocephalic. No temporal or scalp tenderness. EYES: Pupils equal round and reactive. Extraocular motions intact. No scleral icterus. No injection or drainage. ENT: Nose without bleeding, purulent drainage or septal hematoma. Throat without erythema, tonsillar hypertrophy or exudate. Uvula midline. Airway patent. NECK: Trachea midline. No JVD or lymphadenopathy. Supple, nontender, no meningeal signs. CARDIOVASCULAR: Slightly tachycardic rate of 100. Sinus rhythm without murmurs , gallops, or rubs. RESPIRATORY: Clear to auscultation. Breath sounds equal bilaterally. No wheezes , rales, or rhonchi. GASTROINTESTINAL: Abdomen soft, non-tender, nondistended. No hepato-splenomegaly , or palpable masses. No guarding. MUSCULOSKELETAL: Extremities without clubbing, cyanosis, or edema. No joint tenderness, effusion, or edema noted. No calf tenderness. Negative Homans sign bilaterally. NEUROLOGICAL: Awake and alert. Cranial nerves II through XII intact. Motor and sensory grossly within normal limits. Five out of 5 muscle strength in all muscle groups. Normal speech. Laboratory Laboratory Tests Test 01/30/18 21:36 White Blood Count 11.5 Red Blood Count 4.59 Hemoglobin 12.9 Hematocrit 37.9 Mean Corpuscular Volume 82.6 Mean Corpuscular Hemoglobin 28.1 Mean Corpuscular Hemoglobin Concent 34.0 Red Cell Distribution Width 14.9 Platelet Count 267 Mean Platelet Volume 7.9 Neutrophils (%) (Auto) 60.2 Lymphocytes (%) (Auto) 28.4 Monocytes (%) (Auto) 8.3 Eosinophils (%) (Auto) 2.0 Basophils (%) (Auto) 1.1 Neutrophils # (Auto) 6.9 Lymphocytes # (Auto) 3.3 Monocytes # (Auto) 0.9 Eosinophils # (Auto) 0.2 Basophils # (Auto) 0.1 CBC Comment DIFF FINAL Differential Comment Prothrombin Time 9.5 Prothromb Time International Ratio 0.9 Activated Partial Thromboplast Time 22.6 Blood Urea Nitrogen 15 Creatinine 1.68 Random Glucose 364 Total Protein 6.7 Albumin 3.3 Calcium Level 8.7 Magnesium Level 1.9 Alkaline Phosphatase 89 Aspartate Amino Transf (AST/SGOT) 25 Alanine Aminotransferase (ALT/SGPT) 32 Total Bilirubin 0.3 Sodium Level 138 Potassium Level 3.7 Chloride Level 102 Carbon Dioxide Level 22.5 Anion Gap 14 Estimat Glomerular Filtration Rate 41 Total Creatine Kinase 110 Creatine Kinase MB 3.4 Troponin I 0.03 Result Diagram: 01/30/18213501/30/182135 Imaging Last Impressions Chest X-Ray 01/30/182122 Signed Impressions: Service Date/Time: Tuesday, January 30, 2018 21:31 - CONCLUSION: No acute disease. MD Esteban Michel VTE Risk Assessment Esteban VTE Risk Assessment: Mod/High Risk (score >= 2) Caprini Risk Assessment Model Point Value = 1 Point Value = 2 Point Value = 3 Point Value = 5 Age 41-60 Minor surgery BMI > 25 kg/m2 Swollen legs Varicose veins or History of unexplained or recurrent spontaneous Oral contraceptives or hormone replacement Sepsis (< 1 month) Serious lung disease, including pneumonia (< 1 month) Abnormal pulmonary function Acute myocardial infarction Congestive heart failure (< 1 month) History of inflammatory bowel disease Medical patient at bed rest Age 61-74 Arthroscopic surgery Major open surgery (> 45 min) Laparoscopic surgery (> 45 min) Malignancy Confined to bed (> 72 hours) Immobilizing plaster cast Central venous access Age >= 75 History of VTE Family history of VTE Factor V Leiden Prothrombin [id number] Lupus anticoagulant Anticardiolipin antibodies Elevated serum homocysteine Heparin-induced thrombocytopenia Other congenital or acquired thrombophilia Stroke (< 1 month) Elective arthroplasty Hip, pelvis, or leg fracture Acute spinal cord injury (< 1 month) Prophylaxis Regimen Total Risk Factor Score Risk Level Prophylaxis Regimen 0-1 Low Early ambulation 2 Moderate Order ONE of the following: *Sequential Compression Device (SCD) *Heparin 5000 units SQ BID 3-4 Higher Order ONE of the following medications: *Heparin 5000 units SQ TID *Enoxaparin/Lovenox 40 mg SQ daily (WT < 150 kg, CrCl > 30 mL/min) *Enoxaparin/Lovenox 30 mg SQ daily (WT < 150 kg, CrCl > 10-29 mL/min) *Enoxaparin/Lovenox 30 mg SQ BID (WT < 150 kg, CrCl > 30 mL/min) AND/OR *Sequential Compression Device (SCD) 5 or more Highest Order ONE of the following medications: *Heparin 5000 units SQ TID (Preferred with Epidurals) *Enoxaparin/Lovenox 40 mg SQ daily (WT < 150 kg, CrCl > 30 mL/min) *Enoxaparin/Lovenox 30 mg SQ daily (WT < 150 kg, CrCl > 10-29 mL/min) *Enoxaparin/Lovenox 30 mg SQ BID (WT < 150 kg, CrCl > 30 mL/min) AND *Sequential Compression Device (SCD) Assessment and Plan Assessment and Plan //Atrial fibrillation with RVR = Start on amiodarone drip with improvement. = Continue Eliquis. = Consult cardiology. //Acute chest pain //CAD = Likely secondary to tachycardia from atrial fibrillation. = Improved with Nitropaste. Control heart rate. Start blood pressure medications. Continue to monitor. = Continue beta-gunner. = Trend EKGs and troponins. Cardiology following. Appreciate assistance. //Hypertension. Systolic blood pressures elevated in the 160s. Continue metoprolol. Hold off on losartan due to acute kidney injury. May be able to restart in morning. //Acute kidney injury. Likely secondary to atrial fibrillation RVR. Expect improved with heart rate controlled. Continue to monitor. //Hyperlipidemia. Patient with reported allergy to statin. Hold off for now. //Diabetes mellitus //Hyperglycemia in 300s on admission. = Start on diabetic diet with sliding scale. Levemir 50 units twice daily. Continue to monitor. //GERD. Chronic. Continue PPI. //COPD. Chronic. Continue DuoNeb. Discussed Condition With Patient, nurse, ED physician. Physician Certification 2 Midnight Certification Type: Admission for Inpatient Services Order for Inpatient Services The services are ordered in accordance with Medicare regulations or non- Medicare payer requirements, as applicable. In the case of services not specified as inpatient-only, they are appropriately provided as inpatient services in accordance with the 2-midnight benchmark. Estimated LOS (days): 2 days is the estimated time the patient will need to remain in the hospital, assuming treatment plan goals are met and no additional complications. Post-Hospital Plan: Not yet determined Chucky Lucas MD January 31, 2018 01:32
[2018-01-31] MEDS: METOPROLOL TARTRATE 25 MG TAB PO SCH ×3 (01:47→20:42)
[2018-01-31] MEDS: INSULIN DETEMIR 100 UNITS/ML VIAL SQ SCH ×3 (01:48→20:51)
[2018-01-31 02:05] LABS: BILIRUBIN, URINE NEG (NEG); BLOOD, URINE NEG (NEG); GLUCOSE,URINE 1000 mg/dL (NEG); KETONE, URINE 10 mg/dL (NEG); MUCUS URINE FEW /lpf (OCC); NITRITE,URINE NEG (NEG); PH, URINE 5.5 (5.0-8.5); SQUAMOUS EPITHELIAL CELL URINE <1 /hpf (0-5); URINE COLOR LIGHT-YELLOW (YELLW/STRAW); URINE LEUKOCYTE ESTERASE NEG (NEG)
[2018-01-31] MEDS: SODIUM CHLOR 0.9% 1000 ML INJ 1,000 ML IV SCH (03:51)
[2018-01-31] MEDS: oxyCODONE/ACETAMINOPHEN 10 MG/325 MG TAB PO PRN ×2 (03:57→20:50)
[2018-01-31 05:53] LABS: AUTOMATED NEUTROPHIL # 7.1 TH/MM3 (1.8-7.7); BASOPHIL # 0.1 TH/MM3 (0-0.2); BASOPHIL % 0.8 % (0.0-2.0); EOSINOPHIL # 0.3 TH/MM3 (0-0.4); EOSINOPHIL % 2.8 % (0.0-4.0); HEMOGLOBIN 11.5 GM/DL (13.0-17.0); LYMPH % 22.3 % (9.0-44.0); LYMPHOCYTE # 2.5 TH/MM3 (1.0-4.8); MEAN CORPUSCULAR HEMOGLOBIN 27.7 PG (27.0-34.0); MEAN CORPUSCULAR HGB CONC 33.7 % (32.0-36.0); MEAN PLATELET VOLUME 7.2 FL (7.0-11.0); MONO % 10.2 % (0.0-8.0); MONOCYTE # 1.1 TH/MM3 (0-0.9); NEUT % 63.9 % (16.0-70.0); PLATELET COUNT 248 TH/MM3 (150-450); RED BLOOD COUNT 4.15 MIL/MM3 (4.50-5.90); RED CELL DISTRIBUTION WIDTH 14.5 % (11.6-17.2); WHITE BLOOD COUNT 11.2 TH/MM3 (4.0-11.0)
[2018-01-31 06:22] LABS: ALKALINE PHOSPHATASE 74 U/L (45-117); ALT (GPT) 28 U/L (12-78); AST (GOT) 15 U/L (15-37); BLOOD UREA NITROGEN 19 MG/DL (7-18); CALCIUM 7.9 MG/DL (8.5-10.1); CHLORIDE 105 MEQ/L (98-107); CREATININE 1.11 MG/DL (0.60-1.30); GLOMERULAR FILTRATION RATE 66 ML/MIN (>89); GLUCOSE,RANDOM 244 MG/DL (74-106); SODIUM (NA) 141 MEQ/L (136-145); TOTAL BILIRUBIN ADULT 0.4 MG/DL (0.2-1.0); TOTAL PROTEIN 6.2 GM/DL (6.4-8.2); TROPONIN I 0.04 NG/ML (0.02-0.05)
[2018-01-31] MEDS: INSULIN ASPART SUPPLEMENTAL SCALE SQ SCH ×4 (08:00→20:21)
[2018-01-31] MEDS ORDERED: HYDROCHLOROTHIAZIDE 25 MG TAB PO SCH (09:00)
[2018-01-31] MEDS ORDERED: LOSARTAN 50 MG TAB PO SCH (09:00)
[2018-01-31] MEDS ORDERED: NON-FORMULARY DRUG (Losartan-Hydrochlorothiazide 1 TAB) PO SCH (09:00)
[2018-01-31] MEDS: ASPIRIN 81 MG CHEW TAB PO SCH (09:00)
--- NOTE | 2018-01-31 09:35 | HHI.PR ---
Addendum to Inpatient Note Addendum Reason: Additional Documentation Additional Information pt seen, lying in bed, heart sounds rrr, no murmurs NAD, unlabored breathing awaiting cards consultation Polo Mcclellan MD January 31, 2018 09:35
[2018-01-31] MEDS: amLODIPine BESYLATE 5 MG TAB PO SCH (09:53)
[2018-01-31] MEDS: SUCRALFATE 1 GM TAB PO SCH ×2 (09:53→20:42)
[2018-01-31] MEDS: GABAPENTIN 300 MG CAP PO SCH ×2 (09:53→20:42)
[2018-01-31] MEDS: DULoxetine HCl DR 60 MG CAP PO SCH (09:53)
[2018-01-31] MEDS: ISOSORBIDE MONONITRATE 30 MG CR TAB (IMDUR) PO SCH (09:53)
[2018-01-31] MEDS: APIXABAN 5 MG TABLET PO SCH ×2 (09:53→20:43)
[2018-01-31] MEDS: CLOPIDOGREL 75 MG TAB PO SCH (09:53)
[2018-01-31] MEDS: SODIUM CHLORIDE 0.9% FLUSH 10 ML FLUSH IV FLUSH SCH ×2 (09:54→20:43)
--- NOTE | 2018-01-31 19:55 | EKG ---
Date Performed: 01/30/2018 Time Performed: 21:24:30 PTAGE: 67 years EKG: JUNCTIONAL RHYTHM WITH OCCASIONAL VENTRICULAR PREMATURE COMPLEXES PATTERN CONSISTENT WITH P ULMONARY DISEASE LEFT ANTERIOR FASCICULAR BLOCK MINIMAL ST DEPRESSION ABNORMAL ECG Since the PREVIOUS TRACING , no significant change noted PREVIOUS TRACIN01/12/2018 20.03 DOCTOR: Edwin Le Interpretating Date/Time 01/31/2018 19:54:37
--- NOTE | 2018-01-31 19:57 | EKG ---
Date Performed: 01/31/2018 Time Performed: 01:59:32 PTAGE: 67 years EKG: JUNCTIONAL RHYTHM MARKED LEFT AXIS DEVIATION NONSPECIFIC ST & T-WAVE ABNORMALITY ABNORMAL E CG Since the PREVIOUS TRACING , no significant change noted PREVIOUS TRACING 01/30/2018 @ 21.24 .30 DOCTOR: Edwin Le Interpretating Date/Time 01/31/2018 19:56:08
[2018-01-31] MEDS ORDERED: PANTOPRAZOLE SOD 40 MG DELAYED RELEASE TAB PO SCH (21:00)
--- NOTE | 2018-01-31 23:13 | MB ---
cc: Zelalem Thompson Vincent G DO DATE: 01/31/2018 REASON FOR CONSULTATION: Atrial fibrillation with rapid ventricular response. HISTORY OF PRESENT ILLNESS: Irineo Fay is a pleasant 67-year-old male whom I seen in the office, who presented to [facility] Emergency Room due to chest pain and palpitations. He states that his fiancee went for a walk and he decided he would head towards the hot tub and, as he was getting ready for the hot tub, he was actually sitting on the couch at that time and out of nowhere his heart started racing. He had some chest tightness with this. Upon arrival, he was found to be in atrial fibrillation with RVR and Cardizem IV was given and his heart rate decreased and his pain resolved. Since that time, he has been started on an amiodarone drip and, in seeing him, is currently hemodynamically stable without chest pain, shortness of breath or palpitations. He states that overall he has been feeling relatively well, other than when he has episodes of atrial fibrillation with rapid ventricular response. Overall, I believe that he is somewhat anxious about this as his previous episode he did have atrial fibrillation with rapid ventricular response, but he also had an occluded RCA which was treated with 1 drug-eluting stent and he associates the two. PAST MEDICAL HISTORY: 1. Coronary artery disease. 2. Chronic back pain. 3. Atrial fibrillation. 4. Chronic obstructive pulmonary disease. 5. Anemia. 6. Diabetes mellitus. PAST SURGICAL HISTORY: 1. Cardiac catheterization (01/09/2018): Left main, LAD and left circumflex with mild luminal irregularities. RCA 100% occluded, status post [place] drug-eluting stent (2.5 x 38, postdilated to 2.75). 2. Loop recorder placement. 3. Prostatectomy. 4. Atrial fibrillation ablation x2. 5. Multiple back and neck surgeries. 6. Left patellar surgery. 7. Recent cataract surgery. ALLERGIES: 1. ADHESIVE. 2. STATINS. 3. MORPHINE. MEDICATIONS: 1. Phenergan 25 mg every 6 hours as needed for nausea or vomiting. 2. Albuterol 2.5 mg nebulizer every 6 hours as needed for shortness of breath. 3. Eliquis 5 mg b.i.d. 4. Plavix 75 mg daily. 5. Lipitor 10 mg every night. 6. Imdur 30 mg daily. 7. Nitro sublingual as needed. 8. Metoprolol tartrate 75 mg b.i.d. 9. Norvasc 5 mg daily. 10. Losartan/hydrochlorothiazide 100/25 daily. 11. Percocet 10/325 every 6 hours as needed for pain. 12. Gabapentin 600 mg b.i.d. 13. Duloxetine 60 mg daily. 14. Carafate 1 g b.i.d. 15. Protonix 40 mg every night. 16. NovoLog 25 units every night. 17. Novolin 100 units b.i.d. 18. Glimepiride 2 mg daily. 19. Coenzyme Q10 30 mg daily. FAMILY HISTORY: Father of lung cancer at the age of 56. Mother at the age of 70. Denies sudden cardiac within the family. 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 He previously smoked, but has not smoked in the past 12 years. He rarely drinks alcohol. REVIEW OF SYSTEMS: Fourteen systems were reviewed including osteopathic. Pertinent positives and negatives above, otherwise negative. PHYSICAL EXAMINATION: VITAL SIGNS: Temperature 98.0, heart rate 55, blood pressure 164/70, respirations 18, pulse oximetry 98% on 2 liters. GENERAL: The patient appears well in no acute distress, alert, awake and oriented x3. HEENT: Extraocular muscles intact. Mucous membranes moist. NECK: Supple. No JVD at 45 degrees. No carotid bruits heard bilaterally. Carotid upstroke is brisk in nature. HEART: Regular rate and rhythm. Positive first and second heart sounds with no noted murmurs, gallops or rubs. LUNGS: Clear to auscultation bilaterally. No wheezes, rales or rhonchi. ABDOMEN: Soft, nontender, nondistended, no organomegaly noted. EXTREMITIES: Show no clubbing, cyanosis or edema. Femoral and distal pulses intact bilaterally. NEUROLOGIC: No focal deficits. SKIN: Warm, dry and intact. OSTEOPATHIC: Mild lordosis, no kyphoscoliosis or paraspinal tender points. LABORATORY DATA: Hemoglobin 11.5, hematocrit 34.0, platelets 248. Potassium 3.1, BUN 19, creatinine 1.1. Troponin negative x3. CARDIOLOGY STUDIES: Electrocardiogram (01/31/2018 at 0159): Sinus rhythm, left axis deviation, nonspecific ST-T wave changes. IMPRESSION: 1. Atrial fibrillation with rapid ventricular response for which the patient is exceptionally symptomatic. 2. Coronary artery disease with a history of recent coronary artery stenting to the right coronary artery. 3. Chest pain, most likely due to atrial fibrillation with rapid ventricular response. 4. Hypertension. 5. Acute kidney injury. 6. Hyperlipidemia. 7. Diabetes mellitus. 8. Obesity. RECOMMENDATIONS: 1. Mr. Fay presented with atrial fibrillation with rapid ventricular response and has since converted back to sinus rhythm with mild sinus bradycardia. 2. Overall, he has had difficult to contain atrial fibrillation and had 2 previous ablations around a year and a half ago. 3. He has attempted to be on beta blockers at higher doses as well as calcium channel blockers with his beta gunner therapy and he gets significantly bradycardic, in the 40s. 4. I feel that the best option is to consider amiodarone therapy. We will continue his drip for 24 hours and then start him on amiodarone 200 mg daily. 5. I will also have him evaluated outpatient by Dr. Alva for further considerations of possible atrial fibrillation ablation if possible. Otherwise, consideration of pacemaker therapy, as he does have significant tachybrady syndrome. 6. Overall, I believe his chest pain was due to palpitations from atrial fibrillation as his troponins were normal. I do not believe that he needs repeat ischemic evaluation at this time. 7. He will be evaluated again tomorrow and possible discharge tomorrow versus Sunday. 8. He will continue on Eliquis and Plavix for his atrial fibrillation and recent drug-eluting stent therapy. Thank you for allowing me to see Irineo Fay. If there are any questions, please do not hesitate to call. DO MK Anderson/ , 10:41 PM , 11:11 PM
[2018-02-01] VITALS (11 sets, daily range): BP systolic 141–157; BP diastolic 63–74; PULSE 52–82; RESP 18–20; TEMP 97.7–98.2; O2SAT 95
[2018-02-01] MEDS: SODIUM CHLOR 0.9% 1000 ML INJ 1,000 ML IV SCH (00:04)
[2018-02-01] MEDS: oxyCODONE/ACETAMINOPHEN 10 MG/325 MG TAB PO PRN ×2 (03:28→10:08)
[2018-02-01] MEDS: AMIODARONE INJ 450 MG in SODIUM CHLOR 0.9% (EXCEL) INJ 241 ML IV SCH ×2 (05:50→13:25)
[2018-02-01] MEDS: INSULIN ASPART SUPPLEMENTAL SCALE SQ SCH ×2 (08:00→12:00)
[2018-02-01] MEDS: SODIUM CHLORIDE 0.9% FLUSH 10 ML FLUSH IV FLUSH SCH (09:00)
[2018-02-01] MEDS: SUCRALFATE 1 GM TAB PO SCH (09:00)
[2018-02-01] MEDS ORDERED: AMIODARONE 200 MG TAB PO SCH (09:00)
[2018-02-01] MEDS: CLOPIDOGREL 75 MG TAB PO SCH (09:00)
[2018-02-01] MEDS: INSULIN DETEMIR 100 UNITS/ML VIAL SQ SCH (09:00)
[2018-02-01] MEDS: amLODIPine BESYLATE 5 MG TAB PO SCH (10:07)
[2018-02-01] MEDS: METOPROLOL TARTRATE 25 MG TAB PO SCH (10:08)
[2018-02-01] MEDS: ASPIRIN 81 MG CHEW TAB PO SCH (10:08)
[2018-02-01] MEDS: APIXABAN 5 MG TABLET PO SCH (10:08)
[2018-02-01] MEDS: GABAPENTIN 300 MG CAP PO SCH (10:08)
[2018-02-01] MEDS: DULoxetine HCl DR 60 MG CAP PO SCH (10:08)
[2018-02-01] MEDS: ISOSORBIDE MONONITRATE 30 MG CR TAB (IMDUR) PO SCH (10:09)
[2018-02-01 11:15] LABS: BICARBONATE 19.9 MEQ/L (21.0-32.0); CALCIUM 8.3 MG/DL (8.5-10.1); CREATININE 0.89 MG/DL (0.60-1.30)
--- NOTE | 2018-02-01 13:25 | PD.CARD.PN ---
Subjective Subjective Remarks No events overnight Feels well Sinus bradycardia overnight Objective Medications Current Medications Medications (Trade) Dose Ordered Sig/Sussy Route Start Time Stop Time Status Last Admin (NS Flush) 2 ml UNSCH PRN IVF 01/30/18 21:30 Amiodarone HCl 450 mg/Sodium Chloride 250 ml @ 33 mls/hr [id number] IV 01/30/18 23:30 01/31/18 22:15 (NS Flush) 2 ml UNSCH PRN IV FLUSH 01/31/18 00:00 (NS Flush) 2 ml BID IV FLUSH 01/31/18 09:00 02/01/18 09:00 (Narcan Inj) 0.4 mg UNSCH PRN IV PUSH 01/31/18 00:00 (Milk Of Magnesia Liq) 30 ml Q12H PRN PO 01/31/18 00:00 (Senokot) 17.2 mg Q12H PRN PO 01/31/18 00:00 (Dulcolax Supp) 10 mg DAILY PRN RECTAL 01/31/18 00:00 (Lactulose Liq) 30 ml DAILY PRN PO 01/31/18 00:00 (Norvasc) 5 mg DAILY PO 01/31/18 09:00 02/01/18 10:07 (Eliquis) 5 mg BID PO 01/31/18 09:00 02/01/18 10:08 (Aspirin Chew) 81 mg DAILY PO 01/31/18 09:00 02/01/18 10:08 (Plavix) 75 mg DAILY PO 01/31/18 09:00 02/01/18 09:00 (Cymbalta Dr) 60 mg DAILY PO 01/31/18 09:00 02/01/18 10:08 (Neurontin) 600 mg BID PO 01/31/18 09:00 02/01/18 10:08 (Imdur) 30 mg DAILY PO 01/31/18 09:00 02/01/18 10:09 (Lopressor) 75 mg BID PO 01/31/18 00:00 02/01/18 10:08 (Percocet 10-325 Mg) 1 tab Q6H PRN PO 01/31/18 00:00 02/01/18 10:08 (Protonix) 40 mg HS PO 01/31/18 21:00 01/31/18 20:42 (Phenergan) 25 mg Q6H PRN PO 01/31/18 00:00 01/31/18 09:53 (Carafate) 1 gm BID PO 01/31/18 09:00 01/31/18 20:42 (Duoneb Neb) 1 ampule Q6HR NEB PRN NEB 01/31/18 00:00 (NovoLOG SUPPLEMENTAL SCALE) 1 ACHS SLIDING SCALE SQ 01/31/18 08:00 02/01/18 12:00 (Levemir Inj) 50 units Q12HR SQ 01/31/18 00:00 02/01/18 09:00 Sodium Chloride 1,000 ml @ 42 mls/hr [id number] IV 01/31/18 00:15 02/01/18 00:04 (Cordarone) 200 mg DAILY PO 02/01/18 09:00 02/01/18 10:08 Vital Signs / I&O Vital Signs Date Time Temp Pulse Resp B/P (MAP) Pulse Ox O2 Delivery O2 Flow Rate FiO2 02/01/18 13:00 58 02/01/18 12:00 52 02/01/18 12:00 98.2 61 18 141/63 (89) 95 02/01/18 10:00 62 02/01/18 09:00 82 02/01/18 08:00 52 02/01/18 08:00 97.7 59 20 157/74 (101) 95 02/01/18 07:00 60 02/01/18 06:09 60 02/01/18 04:43 16 02/01/18 03:17 58 02/01/18 00:00 57 02/01/18 00:00 58 01/31/18 23:34 97.3 73 18 173/93 (119) 94 01/31/18 23:34 63 01/31/18 22:15 62 179/78 01/31/18 20:00 67 01/31/18 16:20 61 136/89 01/31/18 16:00 98.6 56 26 136/89 (105) 98 01/31/18 16:00 56 I/O 01/31/18 01/31/18 01/31/18 02/01/18 02/01/18 02/01/18 07:00 15:00 23:00 07:00 15:00 23:00 Intake Total 200 ml 250 ml 1113.7 ml 480 ml Output Total 200 ml 150 ml 600 ml 852 ml Balance 0 ml 100 ml 513.7 ml -372 ml Intake Oral 100 ml 180 ml 480 ml IV Total 100 ml 250 ml 933.7 ml Output Urine Total 200 ml 150 ml 600 ml 850 ml Stool Total 0 ml 2 ml # Bowel Movements 0 Physical Exam GENERAL: NAD, AAOx3 SKIN: Warm and dry. HEAD: Atraumatic. Normocephalic. EYES: Pupils equal and round. No scleral icterus. No injection or drainage. ENT: No nasal bleeding or discharge. Mucous membranes pink and moist. NECK: Trachea midline. No JVD. CARDIOVASCULAR: Regular rate and rhythm. RESPIRATORY: No accessory muscle use. Clear to auscultation. Breath sounds equal bilaterally. GASTROINTESTINAL: Abdomen soft, non-tender, nondistended. Hepatic and splenic margins not palpable. MUSCULOSKELETAL: Extremities without clubbing, cyanosis, or edema. No obvious deformities. NEUROLOGICAL: Awake and alert. No obvious cranial nerve deficits. Motor grossly within normal limits. Five out of 5 muscle strength in the arms and legs. Normal speech. PSYCHIATRIC: Appropriate mood and affect; insight and judgment normal. Laboratory Laboratory Tests Test 02/01/18 10:31 Blood Urea Nitrogen 14 MG/DL Creatinine 0.89 MG/DL Random Glucose 154 MG/DL Calcium Level 8.3 MG/DL Sodium Level 138 MEQ/L Potassium Level 3.7 MEQ/L Chloride Level 107 MEQ/L Carbon Dioxide Level 19.9 MEQ/L Anion Gap 11 MEQ/L Estimat Glomerular Filtration Rate 86 ML/MIN Assessment and Plan Problem List: (1) Atrial fibrillation with RVR ICD Codes: I48.91 - Unspecified atrial fibrillation Status: Acute (2) Chest pain ICD Codes: R07.9 - Chest pain, unspecified Status: Acute (3) History of coronary artery stent placement ICD Codes: Z95.5 - History of coronary artery stent placement Status: Acute (4) Obesity ICD Codes: E66.9 - Obesity, unspecified Status: Acute (5) Hyperlipidemia ICD Codes: E78.5 - Hyperlipidemia Status: Chronic (6) Hypertension ICD Codes: I10 - Hypertension Status: Chronic Assessment and Plan 1) AFib with RVR Started on Amiodarone, con't on 200mg daily Will have him see Dr. Alva in the outpatient setting to see about repeat ablation vs PPM for tachy-britney 2) Chest pain due to AFib with RVR, non-anginal in nature 3) Con't Eliquis/Plavix 4) Cardiovascularly stable for discharge home this afternoon Zelalem Thompson DO February 01, 2018 13:25
[2018-02-01] MEDS ORDERED: AMIO200T PO (13:54)
[2018-02-01] MEDS ORDERED: GLUCAGON 1 MG/ML VIAL OTHER PRN (14:00)
[2018-02-01] MEDS ORDERED: DEXTROSE 50% IN WATER 50 ML VIAL(D50) IV PUSH PRN (14:00)
--- NOTE | 2018-02-01 14:05 | HHI.PR ---
Subjective Remarks She says he is feeling well. Denies any chest pain or shortness of breath. Denies any nausea or vomiting. Denies any lightheadedness or dizziness. Objective Vital Signs Date Time Temp Pulse Resp B/P (MAP) Pulse Ox O2 Delivery O2 Flow Rate FiO2 02/01/18 13:25 61 141/63 02/01/18 13:00 58 02/01/18 12:00 52 02/01/18 12:00 98.2 61 18 141/63 (89) 95 02/01/18 10:00 62 02/01/18 09:00 82 02/01/18 08:00 52 02/01/18 08:00 97.7 59 20 157/74 (101) 95 02/01/18 07:00 60 02/01/18 06:09 60 02/01/18 04:43 16 02/01/18 03:17 58 02/01/18 00:00 57 02/01/18 00:00 58 01/31/18 23:34 97.3 73 18 173/93 (119) 94 01/31/18 23:34 63 01/31/18 22:15 62 179/78 01/31/18 20:00 67 01/31/18 16:20 61 136/89 01/31/18 16:00 98.6 56 26 136/89 (105) 98 01/31/18 16:00 56 I/O 01/31/18 01/31/18 01/31/18 02/01/18 02/01/18 02/01/18 06:59 14:59 22:59 06:59 14:59 22:59 Intake Total 200 ml 250 ml 1113.7 ml 480 ml Output Total 200 ml 150 ml 600 ml 852 ml Balance 0 ml 100 ml 513.7 ml -372 ml Intake Oral 100 ml 180 ml 480 ml IV Total 100 ml 250 ml 933.7 ml Output Urine Total 200 ml 150 ml 600 ml 850 ml Stool Total 0 ml 2 ml # Bowel Movements 0 Result Diagram: 01/31/18 0537 02/01/18 1031 Imaging Last Impressions Chest X-Ray 01/30/182122 Signed Impressions: Service Date/Time: Tuesday, January 30, 2018 21:31 - CONCLUSION: No acute disease. Priyank Rosa MD Objective Remarks GENERAL: Patient sitting in bed. Appears comfortable. SKIN: Warm and dry. HEAD: Normocephalic. EYES: No scleral icterus. No injection or drainage. NECK: Supple, trachea midline. No JVD CARDIOVASCULAR: Regular rate and rhythm without murmurs, gallops, or rubs. RESPIRATORY: Breath sounds equal bilaterally. No accessory muscle use. GASTROINTESTINAL: Abdomen soft, non-tender, nondistended. MUSCULOSKELETAL: No cyanosis, or edema. BACK: Nontender without obvious deformity. No CVA tenderness. A/P Assessment and Plan //Atrial fibrillation with RVR = Start on amiodarone drip with improvement. = Continue Eliquis. = Consult cardiology. = Patient cleared by cardiology for discharge. Discharged on amiodarone. Recommend patient follow-up with sleep study as outpatient for suspected sleep apnea. //Acute chest pain //CAD = Likely secondary to tachycardia from atrial fibrillation. = Improved with Nitropaste. Control heart rate. Start blood pressure medications. Continue to monitor. = Continue beta-gunner. = Trend EKGs and troponins. Cardiology following. Appreciate assistance. = Patient cleared for discharge by cardiology. Follow-up cardiology as outpatient. //Hypertension. Systolic blood pressures elevated in the 160s. Continue metoprolol. Hold off on losartan due to acute kidney injury. May be able to restart in morning. = JUNIOR has resolved. Restart losartan/hydrochlorothiazide at home. //Acute kidney injury. Likely secondary to atrial fibrillation RVR. Expect improved with heart rate controlled. Continue to monitor. = JUNIOR has resolved. Restart losartan/hydrochlorothiazide at home. //Hyperlipidemia. Patient with reported allergy to statin. Hold off for now. //Diabetes mellitus //Hyperglycemia in 300s on admission. = Start on diabetic diet with sliding scale. Levemir 50 units twice daily. Continue to monitor. //GERD. Chronic. Continue PPI. //COPD. Chronic. Continue DuoNeb. Discharge Planning Discharge home in good condition. Continue diabetic diet.. See discharge medication reconciliation for medication list. Follow-up with cardiology as outpatient. Chucky Lucas MD February 01, 2018 14:05
--- NOTE | 2018-02-01 14:12 | HHI.DS ---
Discharge Summary Admission Date January 30, 2018 at 23:53 Discharge Date: February 01, 2018 Admitting Diagnosis Afib RVR, Chest Pain (1) Atrial fibrillation with RVR ICD Code: I48.91 - Unspecified atrial fibrillation Status: Acute Procedures No invasive procedures. Brief History - From Admission 67-year-old male history CAD, diabetes, hypertension, who presents with acute onset dull substernal chest pain, palpitations around 9 PM while watching TV. Patient found to be A. fib RVR, which resolved with Cardizem IV bolus. Patient reports that chest pain has almost completely resolved. Denies any nausea, vomiting. Patient reports previously feeling fine, and now is feeling much better. Patient with recent admission for ST elevation myocardial infarction with ENRIQUETA to right coronary artery by Dr. Thompson. CBC/BMP: 01/31/18 0537 02/01/18 1031 Significant Findings Laboratory Tests Test 01/30/18 21:36 01/31/18 01:00 01/31/18 02:00 01/31/18 04:15 White Blood Count 11.5 TH/MM3 (4.0-11.0) Hemoglobin 12.9 GM/DL (13.0-17.0) Hematocrit 37.9 % (39.0-51.0) Monocytes (%) (Auto) 8.3 % (0.0-8.0) Prothrombin Time 9.5 SEC (9.8-11.6) Activated Partial Thromboplast Time 22.6 SEC (24.3-30.1) Creatinine 1.68 MG/DL (0.60-1.30) Random Glucose 364 MG/DL (74-106) Albumin 3.3 GM/DL (3.4-5.0) Estimat Glomerular Filtration Rate 41 ML/MIN (>89) Urine Specific [place] 1.040 (1.002-1.035) Urine Glucose (UA) 1000 mg/dL (NEG) Urine Ketones 10 mg/dL (NEG) Urine Mucus FEW /lpf (OCC) Test 01/31/18 05:37 02/01/18 10:31 White Blood Count 11.2 TH/MM3 (4.0-11.0) Red Blood Count 4.15 MIL/MM3 (4.50-5.90) Hemoglobin 11.5 GM/DL (13.0-17.0) Hematocrit 34.0 % (39.0-51.0) Monocytes (%) (Auto) 10.2 % (0.0-8.0) Monocytes # (Auto) 1.1 TH/MM3 (0-0.9) Blood Urea Nitrogen 19 MG/DL (7-18) Random Glucose 244 MG/DL (74-106) 154 MG/DL (74-106) Total Protein 6.2 GM/DL (6.4-8.2) Albumin 3.0 GM/DL (3.4-5.0) Calcium Level 7.9 MG/DL (8.5-10.1) 8.3 MG/DL (8.5-10.1) Potassium Level 3.1 MEQ/L (3.5-5.1) Estimat Glomerular Filtration Rate 66 ML/MIN (>89) 86 ML/MIN (>89) Carbon Dioxide Level 19.9 MEQ/L (21.0-32.0) Imaging Last Impressions Chest X-Ray 01/30/182122 Signed Impressions: Service Date/Time: Tuesday, January 30, 2018 21:31 - CONCLUSION: No acute disease. Priyank Rosa MD Hospital Course Patient was found to be in atrial fibrillation with RVR. Cardiology was consulted. Patient was started on amiodarone drip, and transition to by mouth amiodarone, with improvement in heart rate. Cardiology is cleared for discharge Patient also found to have acute kidney injury with creatinine 1.6 on admission likely secondary to decreased cardiac output from atrial fibrillation RVR. This resolved. For problem based summary from most recent progress note, please see below. //Atrial fibrillation with RVR = Start on amiodarone drip with improvement. = Continue Eliquis. = Consult cardiology. = Patient cleared by cardiology for discharge. Discharged on amiodarone. Recommend patient follow-up with sleep study as outpatient for suspected sleep apnea. //Acute chest pain //CAD = Likely secondary to tachycardia from atrial fibrillation. = Improved with Nitropaste. Control heart rate. Start blood pressure medications. Continue to monitor. = Continue beta-gunner. = Trend EKGs and troponins. Cardiology following. Appreciate assistance. = Patient cleared for discharge by cardiology. Follow-up cardiology as outpatient. //Hypertension. Systolic blood pressures elevated in the 160s. Continue metoprolol. Hold off on losartan due to acute kidney injury. May be able to restart in morning. = JUNIOR has resolved. Restart losartan/hydrochlorothiazide at home. //Acute kidney injury. Likely secondary to atrial fibrillation RVR. Expect improved with heart rate controlled. Continue to monitor. = JUNIOR has resolved. Restart losartan/hydrochlorothiazide at home. //Hyperlipidemia. Patient with reported allergy to statin. Hold off for now. //Diabetes mellitus //Hyperglycemia in 300s on admission. = Start on diabetic diet with sliding scale. Levemir 50 units twice daily. Continue to monitor. //GERD. Chronic. Continue PPI. //COPD. Chronic. Continue DuoNeb. Discharge Planning Discharge home in good condition. Continue diabetic diet.. See discharge medication reconciliation for medication list. Follow-up with cardiology as outpatient. Pt Condition on Discharge: Good Discharge Disposition: Discharge Home Discharge Time: > 30 minutes Discharge Instructions DIET: Follow Instructions for: Diabetic Diet Activities you can perform: Regular-No Restrictions Follow up Referrals: Cardiology - 1 Week with Kali Alva MD PCP Follow-up - 1 Week with Frederick Jean MD New Medications: Amiodarone (Amiodarone) 200 Mg Tab 200 MG PO DAILY for heart for 30 Days, #30 TAB Continued Medications: Albuterol Neb (Albuterol Neb) 2.5 Mg/0.5 Ml Neb 2.5 MG NEB Q6HR NEB PRN for SHORTNESS OF BREATH, BOX Note: The Albuterol Sulfate Inhalation Solution is concentrated and must be diluted. Read complete instructions carefully before using. Amlodipine (Amlodipine) 5 Mg Tab 5 MG PO DAILY for Blood Pressure Management, #30 TAB 0 Refills Apixaban (Eliquis) 5 Mg Tab 5 MG PO BID for Blood Clot Prevention, #60 TAB 0 Refills Aspirin (Tgt Aspirin) 81 Mg Chw 81 MG PO DAILY for Blood Clot Prevention for 30 Days, #30 EA Stop after 30 days Atorvastatin (Atorvastatin) 10 Mg Tab 10 MG PO HS for Cholesterol Management, #30 TAB 0 Refills Clopidogrel (Plavix) 75 Mg Tab 75 MG PO DAILY for Blood Clot Prevention for 30 Days, #30 TAB Coenzyme Q10 (Ubidecarenone) (Coq10) 30 Mg Cap 30 MG PO DAILY Duloxetine DR (Duloxetine DR) 60 Mg Capdr 60 MG PO DAILY, #30 CAP 0 Refills Gabapentin (Gabapentin) 600 Mg Tab 600 MG PO BID, #60 TAB 0 Refills Glimepiride (Glimepiride) 1 Mg Tab 2 MG PO DAILY for Blood Sugar Management, #30 TAB 0 Refills Take with breakfast or first main meal Insulin Aspart Inj (Novolog Inj) 100 Unit/Ml Inj 25 UNITS SQ HS Insulin Human NPH Inj (Novolin N Inj) 100 Unit/Ml Inj 100 UNITS SQ BID Isosorbide Mononitrate (Isosorbide Mononitrate) 20 Mg Tab 30 MG PO DAILY for Prevent Chest Pain, #60 TAB 0 Refills Take 2 doses 7 hours apart. Losartan-Hydrochlorothiazide (Losartan-Hydrochlorothiazide) 100-25 Mg Tab 1 TAB PO DAILY for Blood Pressure Management, #30 TAB 0 Refills Metoprolol Tartrate (Metoprolol Tartrate) 75 Mg Tab 75 MG PO BID, #60 TAB 0 Refills Nitroglycerin SL (Nitroglycerin SL) 0.4 Mg Subl 0.4 MG SL DIRECTED PRN for CHEST PAIN, #100 TAB.SL 0 Refills ONE TABLET UNDER THE TONGUE NEEDED FOR CHEST PAIN, MAY REPEAT EVERY FIVE MINUTES FOR A TOTAL OF 3 DOSES OR CALL 911 IF NO RELIEF Oxycodone-Acetaminophen (Percocet) 10-325 mg Tab 1 TAB PO Q6H PRN for PAIN, TAB 0 Refills Pantoprazole (Pantoprazole) 40 Mg Tab 40 MG PO HS for Reflux, #30 TAB 0 Refills Promethazine (Phenergan) 25 Mg Tablet 25 MG PO Q6H PRN for NAUSEA OR VOMITING, #20 TAB 0 Refills Sucralfate (Carafate) 1 Gm Tab 1 GM PO BID for Ulcer Prevention, #120 TAB 0 Refills On empty stomach Discontinued Medications: Methylprednisolone Dosepak (Medrol Dosepak) 4 Mg Dspk 4 MG PO DIRECTED, #1 DSPK 0 Refills Per Pharmacist direction Chucky Lucsa MD February 01, 2018 14:12
[2018-02-01] MEDS ORDERED: INSULIN DETEMIR 100 UNITS/ML VIAL SQ SCH (21:00)
== END 2018-02-01 16:30 | disposition home or self-care (01) | DRG 281 ==
LOC: NEPC 21:21 → NEDA 23:53 → HIMW 01-31 04:05 → HCIS 01-31 19:45
PROVIDERS: ADMIT Internal Medicine; ATTEND Internal Medicine
DX: I48.91 Unspecified atrial fibrillation (principal); I21.4 Non-ST elevation (NSTEMI) myocardial infarction; Z68.42 Body mass index [BMI] 45.0-49.9, adult; N17.9 Acute kidney failure, unspecified; I50.9 Heart failure, unspecified; I11.0 Hypertensive heart disease with heart failure; E11.9 Type 2 diabetes mellitus without complications; D64.9 Anemia, unspecified; J44.9 Chronic obstructive pulmonary disease, unspecified; I25.10 Atherosclerotic heart disease of native coronary artery without angina pectoris; H91.93 Unspecified hearing loss, bilateral; K21.9 Gastro-esophageal reflux disease without esophagitis; E66.01 Morbid (severe) obesity due to excess calories; I44.4 Left anterior fascicular block; E78.5 Hyperlipidemia, unspecified; I49.5 Sick sinus syndrome; M79.7 Fibromyalgia; F32.9 Major depressive disorder, single episode, unspecified; Z79.01 Long term (current) use of anticoagulants; Z79.4 Long term (current) use of insulin; Z80.1 Family history of malignant neoplasm of trachea, bronchus and lung; Z82.49 Family history of ischemic heart disease and other diseases of the circulatory system; Z83.3 Family history of diabetes mellitus; Z85.038 Personal history of other malignant neoplasm of large intestine; Z85.3 Personal history of malignant neoplasm of breast; Z85.46 Personal history of malignant neoplasm of prostate; Z87.891 Personal history of nicotine dependence; Z88.5 Allergy status to narcotic agent; Z95.5 Presence of coronary angioplasty implant and graft
CPT/HCPCS: 71045; 80048; 80053; 80307; 81001; 82550; 82552; 82948; 83735; 84484; 85025; 85610; 85730; 87641; 93005; 99285; J0282; J1815; J7030; J7050; Q0169

== ENCOUNTER 2018-02-22 15:08 | Emergency (ER) | payer MEDICARE ==
[~2018-02-22] VITALS: Ht 182.9 cm; Wt 150.0 kg
[~2018-02-22 15:08] MED LIST changes: +AMIO200T PO; -LEVA500T33 PO; -MEDR4PAK PO
[2018-02-22 15:28] VITALS: BP 159/73; PULSE 68; RESP 18; TEMP 97.8; O2SAT 95
[2018-02-22] MEDS ORDERED: oxyCODONE/ACETAMINOPHEN 10 MG/325 MG TAB PO ONE (16:00)
[2018-02-22] MEDS ORDERED: NOVORP2 SQ (16:04)
--- NOTE | 2018-02-22 16:46 | RADRPT ---
EXAM DATE: 02/22/2018 4:41 PM EDT AGE/SEX: 67 years / Male INDICATIONS: Right leg swelling. CLINICAL DATA: This is the patient's initial encounter. Patient reports that signs and symptoms have been present for 2 days and indicates a pain score of 6/10. MEDICAL/SURGICAL HISTORY: Chronic obstructive pulmonary disease. Hypertension. Diabetes. CAD . Anemia. GERD. Atrial Fibrillation. Myocardial Infarction. Hypercholesterolemia. Prostatectomy . Cardiac Catheterization with stent placement, loop recorder. Left patellar surgery. Multiple back and neck surgeries. COMPARISON: No prior [place] exams available for comparison. TECHNIQUE: Venous ultrasound of both lower extremities was performed from the inguinal ligament to t he proximal calf. Real-time, color Doppler and spectral tracing, compression and augmentation techni ques were used. FINDINGS: There is normal compressibility of the deep venous system from the inguinal region to the proximal ca lf. No echogenic clot is seen in the lumen of the common femoral, femoral, popliteal, and posterior tibial veins. There is a normal response of the venous system to proximal and distal augmentation an d respiration. CONCLUSION: 1. Negative exam with no evidence of deep venous thrombosis. Electronically signed by: Walter Torres MD 02/22/2018 4:45 PM EDT
--- NOTE | 2018-02-22 16:49 | RADRPT ---
EXAM DATE: 02/22/2018 4:42 PM EDT AGE/SEX: 67 years / Male INDICATIONS: Contusion to the right lateral/lower leg. CLINICAL DATA: This is the patient's initial encounter. Patient reports that signs and symptoms have been present for 2 days and indicates a pain score of 6/10. Location: Laterality: MEDICAL/SURGICAL HISTORY: Hypertension. Diabetes. Chronic obstructive pulmonary disease. PAUL D. CAD. Anemia. Atrial fibrillation. Hypercholesterolemia. Myocardial Infarction. Prostatectomy . Cardiac Catheterization with stent placement, loop recorder. Left patellar surgery. Multiple back and neck surgeries. COMPARISON: No prior [place] exams available for comparison. FINDINGS: A targeted ultrasound examination was more region contusion and clinical concern. This demonstrates m ild edema with no focal fluid collection or hematoma. CONCLUSION: 1. Mild edema with no focal fluid collection or hematoma. Electronically signed by: Walter Torres MD 02/22/2018 4:47 PM EDT
[2018-02-22 17:05] VITALS: RESP 18
--- NOTE | 2018-02-22 17:41 | RADRPT ---
EXAM DATE: 02/22/2018 5:35 PM EDT AGE/SEX: 67 years / Male INDICATIONS: Right leg pain, no injury. CLINICAL DATA: This is the patient's initial encounter. Patient reports that signs and symptoms have been present for 3 days and indicates a pain score of 6/10. MEDICAL/SURGICAL HISTORY: Chronic obstructive pulmonary disease. Hypertension. Diabetes melli tus type II. CAD None. COMPARISON: No prior [place] exams available for comparison. FINDINGS: Bony structures are intact and in normal alignment. Osseous density is normal. Soft tissues are unre markable. No radiopaque foreign bodies seen. CONCLUSION: No acute bony abnormality of the tibia or the fibula identified. No retained foreign body. Electronically signed by: Tejas Baires MD 02/22/2018 5:39 PM EDT
[2018-02-22] MEDS ORDERED: CEPH-460 PO (17:48)
[2018-02-22] MEDS ORDERED: HYDR-3516 PO (18:34)
--- NOTE | 2018-02-22 18:35 | PD ---
HPI Chief Complaint: Pain: Acute or Chronic Time Seen by Provider: 15:54 Travel History International Travel<30 days: No Contact w/Intl Traveler<30days: No Traveled to known affect area: No History of Present Illness HPI 67-year-old male for evaluation of pain to the right leg. Per patient he has had a right leg injury or trauma. He does take blood thinners. He was concerned for a blood clot. The pain is 7 out of 10. Denies any numbness, tendon. No chest pain or shortness of breath. No urinary bowel movement issues. Pain is mostly to the bone but not to the calf. No cough tenderness. No numbness, tingling, weakness. PFSH Past Medical History Hx Anticoagulant Therapy: Yes (PLAVIX, ELOQUIS ) Anemia: Yes Arthritis: Yes Asthma: Yes Atrial Fibrillation: Yes Autoimmune Disease: No Anxiety: Yes Depression: Yes Heart Rhythm Problems: Yes Cancer: Yes (PROSTATE 2008, L BREAST 2006--ALSO REMOVED LYMPH NODES, COLON 2002 ) Cardiac Catheterization: Yes Cardiovascular Problems: Yes ([place]) High Cholesterol: Yes Chemotherapy: No Chest Pain: Yes Congestive Heart Failure: Yes COPD: Yes Cerebrovascular Accident: No Coronary Artery Disease: Yes Diabetes: Yes Patient Takes Glucophage: No Diminished Hearing: Yes (bilateral aids) Endocrine: Yes Fibromyalgia: Yes Gastrointestinal Disorders: Yes (OCC ACID REFLUX) GERD: Yes Glaucoma: No Genitourinary: Yes Headaches: Yes Hepatitis: No Hiatal Hernia: Yes Hypertension: Yes Immune Disorder: No Implanted Vascular Access Dvce: Yes Kidney Stones: Yes Musculoskeletal: Yes Neurologic: Yes Psychiatric: Yes Reproductive: No Respiratory: Yes (COPD) Integumentary: No Immunizations Current: Yes Migraines: Yes Myocardial Infarction: Yes (2017) Pancreatitis: Yes Pneumonia: Yes Radiation Therapy: No Renal Failure: No Seizures: No Sleep Apnea: No Thyroid Disease: Yes Ulcer: Yes Past Surgical History Abdominal Surgery: Yes (HERNIA REPAIR X 2; COLON RESECTION R/T DIVERTICULITIS, COLON CA 2002) Appendectomy: Yes Body Medical Devices: loop recorder, CAGE AND SCREWS L5-S1, CARDIAC STENT Cardiac Surgery: Yes (ABLATION X 2 2015, stent 1995) Cholecystectomy: Yes Coronary Artery Bypass Graft: No Coronary Stent: Yes (X1 IN 1995; 3 WEEKS AGO ) Ear Surgery: No Endocrine Surgery: No Eye Surgery: No Genitourinary Surgery: Yes (PROSTATECTOMY 2008) Gynecologic Surgery: No Hysterectomy: No Neurologic Surgery: Yes (BACK/NECK SURGERY) Oral Surgery: No Prostatectomy: Yes Thoracic Surgery: Yes (L BREAST 2006--ALSO REMOVED LYMPH NODES) Other Surgery: Yes (NECK AND BACK-L5, S1, ABLATIONX2 2015) Family History Family Myocardial Infarction: Yes Social History Alcohol Use: Yes (Occ) Tobacco Use: No (2003 QUIT) Substance Use: No Allergies-Medications (Allergen,Severity, Reaction): Coded Allergies: adhesive (Unverified Allergy, Severe, Rash, 02/22/18) atorvastatin (Unverified Allergy, Severe, MUSCLE WEAKNESS, 02/22/18) pravastatin (Unverified Allergy, Severe, MUSCLE WEAKNESS, 02/22/18) rosuvastatin (Unverified Allergy, Severe, MUSCLE WEAKNESS, 02/22/18) morphine (Unverified Adverse Reaction, Severe, BECOMES VERY AGGRESSIVE, 02/22/18) Reported Meds & Prescriptions Reported Meds & Active Scripts Active Hydrocodone-Acetaminophen 5-325 mg Tab 1 Tab PO Q6H PRN Keflex (Cephalexin) 500 Mg Cap 500 Mg PO Q8H 10 Days Amiodarone (Amiodarone HCl) 200 Mg Tab 200 Mg PO DAILY 30 Days Plavix (Clopidogrel Bisulfate) 75 Mg Tab 75 Mg PO DAILY 30 Days Reported Novolin R Inj (Insulin Human Regular) 1,000 Unit/10 Ml Vial 25 Units SQ HS Percocet (Oxycodone-Acetaminophen) 10-325 mg Tab 1 Tab PO Q6H PRN Coq10 (Coenzyme Q10 (Ubidecarenone)) 30 Mg Cap 30 Mg PO DAILY Isosorbide Mononitrate 20 Mg Tab 30 Mg PO DAILY Take 2 doses [address] (Duloxetine HCl) 60 Mg Capdr 60 Mg PO DAILY Metoprolol Tartrate 75 Mg Tab 75 Mg PO BID Losartan-Hydrochlorothiazide 100-25 Mg Tab 1 Tab PO DAILY Pantoprazole (Pantoprazole Sodium) 40 Mg Tab 40 Mg PO HS Nitroglycerin SL (Nitroglycerin) 0.4 Mg Subl 0.4 Mg SL DIRECTED PRN ONE TABLET UNDER THE TONGUE NEEDED FOR CHEST PAIN, MAY REPEAT EVERY FIVE MINUTES FOR A TOTAL OF 3 DOSES OR CALL 911 IF NO RELIEF Carafate (Sucralfate) 1 Gm Tab 1 Gm PO BID On empty stomach Eliquis (Apixaban) 5 Mg Tab 5 Mg PO BID Albuterol Neb (Albuterol Sulfate) 2.5 Mg/0.5 Ml Neb 2.5 Mg NEB Q6HR NEB PRN Note: The Albuterol Sulfate Inhalation Solution is concentrated and must be diluted. Read complete instructions carefully before using. Novolin N Inj (Insulin Human NPH) 100 Unit/Ml Inj 100 Units SQ BID Gabapentin 600 Mg Tab 600 Mg PO BID Atorvastatin (Atorvastatin Calcium) 10 Mg Tab 10 Mg PO HS Glimepiride 1 Mg Tab 2 Mg PO DAILY Take with breakfast or first main meal Amlodipine (Amlodipine Besylate) 5 Mg Tab 5 Mg PO DAILY Review of Systems Except as stated in HPI: all other systems reviewed are Neg Physical Exam Narrative GENERAL: SKIN: Warm and dry. HEAD: Atraumatic. Normocephalic. EYES: Pupils equal and round. No scleral icterus. No injection or drainage. ENT: No nasal bleeding or discharge. Mucous membranes pink and moist. NECK: Trachea midline. No JVD. CARDIOVASCULAR: Regular rate and rhythm. RESPIRATORY: No accessory muscle use. Clear to auscultation. Breath sounds equal bilaterally. GASTROINTESTINAL: Abdomen soft, non-tender, nondistended. Hepatic and splenic margins not palpable. MUSCULOSKELETAL: Extremities without clubbing, cyanosis, or edema. No obvious deformities. full ROM of the upper and lower extremities bilaterally. 2+ pulses. Bruise and swelling noted to an anterior right leg. Tender to touch. bruising is 3 cms. Slightly erythematous. NEUROLOGICAL: Awake and alert. No obvious cranial nerve deficits. Motor grossly within normal limits. Five out of 5 muscle strength in the arms and legs. Normal speech. PSYCHIATRIC: Appropriate mood and affect; insight and judgment normal. Data Data Last Documented VS Vital Signs Date Time Temp Pulse Resp B/P (MAP) Pulse Ox O2 Delivery O2 Flow Rate FiO2 02/22/18 18:53 65 14 146/70 (95) 94 21 02/22/18 15:28 97.8 Orders Orders Us Leg Venous Doppler (02/22/18 ) Us Leg Soft Tissue (02/22/18 ) Tibia/Fibula (Ap/Lat) (02/22/18 ) Oxycodone-Acetamin 10-325 Mg (Percocet 1 (02/22/18 16:00) Ed Discharge Order (02/22/18 18:33) MDM Medical Decision Making Medical Screen Exam Complete: Yes Emergency Medical Condition: Yes Medical Record Reviewed: Yes Interpretation(s) Last Impressions Tibia/Fibula X-Ray 02/22/18 0000 Signed Impressions: CONCLUSION: No acute bony abnormality of the tibia or the fibula identified. No retained fo reign body. Lower Extremity Ultrasound 02/22/18 0000 Signed Impressions: CONCLUSION: 1. Mild edema with no focal fluid collection or hematoma. Lower Extremity Ultrasound 02/22/18 0000 Signed Impressions: CONCLUSION: 1. Negative exam with no evidence of deep venous thrombosis. Differential Diagnosis DVT vs cellulitis vs bruise Narrative Course 67 yo male here for evaluation of right leg bump and pain. Patient properly examined. Unclear etiology. Imaging ordered. Showed no sign of acute disease. Possible early cellulitis but bruising noted. Will treat with keflex and lortab. Ice or heat. F/u with PCP. See ED if worsening symptoms. Diagnosis Primary Impression: Skin infection Additional Impression: Bruise Patient Instructions: General Instructions, Narcotic given in the ED Additional Instructions: Take medications as prescribed. Follow-up with PCP. See ED for any worsening symptoms. Do not drink or drive while taking pain medication. Apply ice or heat as needed for pain Med/Other Pt SpecificInfo: Prescription(s) given Scripts Hydrocodone-Acetaminophen (Hydrocodone-Acetaminophen) 5-325 mg Tab 1 TAB PO Q6H Y for PAIN, #10 TAB 0 Refills Prov: Cathy Truong DO 02/22/18 Cephalexin (Keflex) 500 Mg Cap 500 MG PO Q8H for Infection for 10 Days, #30 CAP 0 Refills Prov: Cathy Truong DO 02/22/18 Disposition: 01 DISCHARGE HOME Condition: Stable Regan Herrera Feb 22, 2018 18:35
[2018-02-22 18:53] VITALS: BP 146/70
== END 2018-02-22 19:05 | disposition home or self-care (01) ==
LOC: NEPC 15:08
DX: L08.9 Local infection of the skin and subcutaneous tissue, unspecified (principal); M79.604 Pain in right leg; D64.9 Anemia, unspecified; I11.0 Hypertensive heart disease with heart failure; I50.9 Heart failure, unspecified; E11.9 Type 2 diabetes mellitus without complications; M79.7 Fibromyalgia; J44.9 Chronic obstructive pulmonary disease, unspecified; K21.9 Gastro-esophageal reflux disease without esophagitis
CPT/HCPCS: 73590; 76882; 93971; 99284

== ENCOUNTER 2018-05-12 18:53 | Inpatient (IN) ==
[2018-05-12] MEDS ORDERED: HYDROmorphone PF Inj 0.5 MG/0.5 ML Syringe IV.PUSH ONE (19:14)
--- NOTE | 2018-05-12 19:17 | ED ---
HPI General Chief Complaint: Syncope Stated Complaint: Fall injury Time Seen by Provider: 05/12/18 19:01 Source: patient, EMS, RN notes reviewed and old records reviewed Mode of arrival: EMS Limitations: no limitations History of Present Illness HPI narrative: 67-year-old male presents to the emergency department for evaluation after he states he had a syncopal episode. He states he was getting ready to go to the bathroom when he is single episode, falling into the shower and hitting his head and shoulder into a shower chair. He states he believes he tried to catch something with his right hand as he is having pain in his right hand as well. He reports headache, neck pain, left shoulder pain, left arm pain, right arm pain, 8/10. He denies any chest pain or abdominal pain. No vomiting. He reports multiple syncopal episodes recently. He states he has not been evaluated in the hospital for these. Patient states that he saw Dr. Beavers who states he believes it was his heart. Patient does report history of diabetes, hypertension, hyperlipidemia, COPD, atrial fibrillation, AR, CAD. Patient states he did feel dizzy before falling. Moderate severity. Upon further questioning, patient states he was admitted to [facility] last week for lung infection. He states he was getting IV steroids and antibiotics. He finished his Levaquin yesterday. He also states he has been getting dark stools for the past 2 weeks. He does have history of GI bleed in the past. He is on Eliquis and Plavix. MD complaint: loss of consciousness Prodromal symptoms: lightheaded Context: standing up Injuries sustained associated with event: neck, head, chest, LUE and RUE Current symptoms: headache History: previous syncopal episode Related Data Home Medications Medication Instructions Recorded Confirmed amiodarone 200 mg PO DAILY 05/12/18 05/12/18 amlodipine 5 mg PO DAILY 05/12/18 05/12/18 apixaban [Eliquis] 5 mg PO BID 05/12/18 05/12/18 atorvastatin 10 mg PO 05/12/18 clopidogrel 75 mg PO DAILY 05/12/18 05/12/18 duloxetine 60 mg PO DAILY 05/12/18 05/12/18 furosemide 40 mg PO DAILY 05/12/18 05/12/18 gabapentin 600 mg PO BID 05/12/18 05/12/18 glimepiride 2 mg PO QAM 05/12/18 05/12/18 hydrocodone-acetaminophen 1 tab PO Q6H PRN 05/12/18 05/12/18 insulin NPH isoph U-100 human 75 unit SUB-Q HS 05/12/18 05/12/18 [Novolin N NPH U-100 Insulin] insulin NPH isoph U-100 human 95 unit SUB-Q AC 05/12/18 05/12/18 [Novolin N NPH U-100 Insulin] insulin regular human [Novolin R 20 unit SUB-Q QAM 05/12/18 05/12/18 Regular U-100 Insuln] insulin regular human [Novolin R 50 unit SUB-Q HS 05/12/18 05/12/18 Regular U-100 Insuln] isosorbide mononitrate 05/12/18 losartan-hydrochlorothiazide 05/12/18 05/12/18 metolazone 05/12/18 metoprolol tartrate 75 mg PO BID 05/12/18 05/12/18 montelukast 10 mg PO QPM 05/12/18 05/12/18 pantoprazole 40 mg PO DAILY 05/12/18 05/12/18 ropinirole 0.5 mg PO TID 05/12/18 05/12/18 Allergies Allergy/AdvReac Type Severity Reaction Status Date / Time adhesive Allergy Severe Rash Verified 05/12/18 19:12 atorvastatin Allergy Severe MUSCLE Verified 05/12/18 19:12 WEAKNESS pravastatin Allergy Severe MUSCLE Verified 05/12/18 19:12 WEAKNESS rosuvastatin Allergy Severe MUSCLE Verified 05/12/18 19:12 WEAKNESS morphine AdvReac Severe BECOMES Verified 05/12/18 19:12 VERY AGGRESSIVE Review of Systems ROS: all other systems reviewed are negative [facility] Medical History Medical History A-fib (Acute) CAD (coronary artery disease) (Acute) CHF (congestive heart failure) (Acute) Diabetes (Acute) History of COPD (Acute) History of breast cancer (Acute) History of colon cancer (Acute) History of prostate cancer (Acute) Hx of syncope (Acute) Surgical History Surgical History H/O knee surgery (Acute) H/O neck surgery (Acute) H/O prostatectomy (Acute) H/O shoulder surgery (Acute) History of colon resection (Acute) Hx of appendectomy (Acute) Hx of cholecystectomy (Acute) Previous back surgery (Acute) Family History Family History Other Diabetes mellitus Social History Social History Substance History: No History of Abuse Second Hand Smoke Exposure: No Smoking Status: Former smoker Tobacco Type: Cigarettes How Often Do You Have a Drink Containing Alcohol: Never Recent Travel in [facility] within the Last 8 Weeks: No Recent Out of Country Travel within the Last 8 Weeks: No Immunization History Tetanus Immunization: <5 Years Hx Influenza Vaccine This Season: Yes Exam Narrative Exam Narrative: GENERAL: Well-nourished, well-developed obese male patient, afebrile SKIN: Focused skin assessment warm/dry. No lacerations or abrasions HEAD: Normocephalic. Atraumatic EYES: No scleral icterus. No injection or drainage. NECK: Supple, trachea midline. No JVD or lymphadenopathy. CARDIOVASCULAR: Regular rate and rhythm without murmurs, gallops, or rubs. RESPIRATORY: Breath sounds equal bilaterally. No accessory muscle use. Lung sounds are clear to auscultation GASTROINTESTINAL: Abdomen soft, non-tender, nondistended. MUSCULOSKELETAL: No cyanosis, or edema. Patient reports pain to palpation over both arms BACK: No obvious deformity. No CVA tenderness. RECTAL EXAM: No masses or tenderness, stool is brown. Hemoccult is positive. This exam was done with RN at bedside Procedures Hemaprompt Stool Procedural Steps Taken: specimen placed in appropriate test area, developer placed on specimen and control areas and controls appropriately positive and negative Hemaprompt Stool Result: positive Course Initial Documented Vital Signs Temperature 98.1 F 05/12/18 19:04 Pulse Rate 74 05/12/18 19:04 Respiratory Rate 18 05/12/18 19:04 Blood Pressure 129/60 05/12/18 19:04 Pulse Oximetry 98 05/12/18 19:04 Last Documented Vital Signs Temperature 98.1 F 05/12/18 19:12 Pulse Rate 68 05/12/18 21:32 Respiratory Rate 18 05/12/18 19:12 Blood Pressure 129/60 05/12/18 19:12 Pulse Oximetry 98 05/12/18 21:32 Medical Decision Making MDM Narrative Medical decision making narrative: 67 year old male presents to the emergency department for evaluation of arm injury after syncopal episode. He reports multiple syncopal episodes recently. EKG, CBC, CMP, CK, Troponin, Magnesium, PTT, PT/INR, UA are ordered and pending. Chest x-ray, x-ray of the right humerus, right forearm, right hand, left humerus, left forearm are ordered and pending. Patient states he is allergic to Morphine but can take Dilaudid. Patient is given Dilaudid 0.5 mg IV, Zofran 4 mg IV. CBC shows leukocytosis of 18.9, anemia with a hemoglobin of 7.8 hematocrit 25.0. CMP shows BUN 29, creatinine 1.41, hyperglycemia 340. CK is 57. Troponin is less than 0.02. BNP is 194. Magnesium is 2.1. PTT is 18.8. PT/ INR is 10.0/1.0. UA is pending. Chest x-ray shows cardiomegaly, no infiltrate seen. X-ray of the right humerus shows no evidence of recent bony injury. X- ray of the right forearm shows no evidence of recent bony injury. X-ray of the right hand shows no evidence of recent bony injury. X-ray of the left humerus is negative. X-ray of the left forearm shows no evidence of recent bony injury. CT of the brain shows no acute findings in the brain. CT of the cervical spine shows no evidence of fracture or spondylolisthesis. Rectal exam is done due to patient reporting dark stools and anemia. Stool is brown, but Hemoccult positive. Type and screen, lactic acid, blood cultures 2 were ordered and pending. Unclear if elevated WBC is due to being on corticosteroids or infection. No evidence of acute infection at this time. Patient is given Protonix 40 mg IV, NS 500 ml bolus. 1 unit PRBCs are ordered and pending. Patient will be admitted for GI bleed, anemia, syncope. Dr. Marsh accepted admission. Medical Screen Exam Complete: Yes Emergency Medical Condition: Yes Differential Diagnosis Differential Diagnosis: intracranial abnormality vs. electrolyte abnormality vs. orthostatic hypotension vs. ACS vs. fracture vs. contusion Medical Records Medical records reviewed: Yes I reviewed the patient's medical records. Lab Data Result diagrams: 05/12/18 19:15 05/12/18 19:15 Lab Results 05/12/18 05/12/18 05/12/18 Range/Units 19:15 19:15 19:15 WBC (4.0-11.0) th/mm3 RBC (4.50-5.90) mil/mm3 Hgb (13.0-17.0) gm/dL Hct (39.0-51.0) % MCV (80.0-100.0) fL MCH (27.0-34.0) pg MCHC (32.0-36.0) % RDW (11.6-17.2) % Plt Count (150-450) th/mm3 MPV (7.0-11.0) fL Prelim Diff (Auto) Neut % (Auto) (16.0-70.0) % Lymph % (Auto) (9.0-44.0) % Warren % (Auto) (0.0-8.0) % Eos % (Auto) (0.0-4.0) % Baso % (Auto) (0.0-2.0) % Neut # (Auto) (1.8-7.7) th/mm3 Lymph # (Auto) (1.0-4.8) th/mm3 Warren # (Auto) (0.0-0.9) th/mm3 Eos # (Auto) (0.0-0.4) th/mm3 Baso # (Auto) (0.0-0.2) th/mm3 WBC Differential Seg Neuts % (Manual) (16-70) % Band Neuts % (Manual) (0-6) % Lymphocytes % (Manual) (9-44) % Monocytes % (Manual) (0-8) % Metamyelocytes % (Man) (0-1) % Myelocytes % (Man) (0-0) % Abs Neuts (Manual) (1.8-7.7) th/mm3 Differential Comment Platelet Estimate (Normal) Platelet Morphology (Normal) PT 10.0 (9.8-11.6) sec INR 1.0 Ratio APTT 18.8 L (24.3-30.1) sec Sodium 135 L (136-145) meq/L Potassium 4.3 (3.5-5.1) meq/L Chloride 98 (98-107) meq/L Carbon Dioxide 24.0 (21.0-32.0) meq/L Anion Gap 13 (5-15) meq/L BUN 29 H (7-18) mg/dL Creatinine 1.41 H (0.60-1.30) mg/dL Estimated GFR 50 L (>89) mL/min Random Glucose 340 H (74-106) mg/dL Lactic Acid (0.4-2.0) mmol/L Calcium 8.7 (8.5-10.1) mg/dL Magnesium 2.1 (1.5-2.5) mg/dL Total Bilirubin 0.3 (0.2-1.0) mg/dL AST 30 (15-37) U/L ALT 89 H (12-78) U/L Alkaline Phosphatase 76 (45-117) U/L Total Creatine Kinase 57 (39-308) U/L Troponin I Less than 0.02 L (0.02-0.05) ng/mL B-Natriuretic Peptide 194 H (0-100) pg/mL Total Protein 6.2 L (6.4-8.2) g/dL Albumin 3.1 L (3.4-5.0) g/dL Urine Color (Yellw/Straw) Urine Clarity (Clear) Urine pH (5.0-8.5) Ur Specific [place] (1.002-1.035) Urine Protein (Neg-Trace) mg/dL Urine Glucose (UA) (Negative) mg/dL Urine Ketones (Negative) mg/dL Urine Occult Blood (Negative) Urine Nitrate (Negative) Urine Bilirubin (Negative) Urine Urobilinogen (Less than 2) mg/dL Ur Leukocyte Esterase (Negative) Urine WBC (0-5) /hpf Urine Mucus (Occasional) /lpf Micro UA Comment Urine Culture Comments Blood Type Antibody Screen MTS Gel Crossmatch 05/12/18 05/12/18 05/12/18 Range/Units 19:15 19:15 19:15 WBC 18.9 H (4.0-11.0) th/mm3 RBC 3.53 L (4.50-5.90) mil/mm3 Hgb 7.8 L (13.0-17.0) gm/dL Hct 25.0 L (39.0-51.0) % MCV 70.9 L (80.0-100.0) fL MCH 22.1 L (27.0-34.0) pg MCHC 31.1 L (32.0-36.0) % RDW 17.8 H (11.6-17.2) % Plt Count 419 (150-450) th/mm3 MPV 6.9 L (7.0-11.0) fL Prelim Diff (Auto) Slide review pending Neut % (Auto) 81.4 H (16.0-70.0) % Lymph % (Auto) 10.5 (9.0-44.0) % Warren % (Auto) 7.3 (0.0-8.0) % Eos % (Auto) 0.1 (0.0-4.0) % Baso % (Auto) 0.7 (0.0-2.0) % Neut # (Auto) 15.3 H (1.8-7.7) th/mm3 Lymph # (Auto) 2.0 (1.0-4.8) th/mm3 Warren # (Auto) 1.4 H (0.0-0.9) th/mm3 Eos # (Auto) 0.0 (0.0-0.4) th/mm3 Baso # (Auto) 0.1 (0.0-0.2) th/mm3 WBC Differential Manual diff final Seg Neuts % (Manual) 77 H (16-70) % Band Neuts % (Manual) 4 (0-6) % Lymphocytes % (Manual) 12 (9-44) % Monocytes % (Manual) 5 (0-8) % Metamyelocytes % (Man) 1 (0-1) % Myelocytes % (Man) 1 H (0-0) % Abs Neuts (Manual) 15.7 H (1.8-7.7) th/mm3 Differential Comment . Platelet Estimate Normal (Normal) Platelet Morphology Normal (Normal) PT (9.8-11.6) sec INR Ratio APTT (24.3-30.1) sec Sodium (136-145) meq/L Potassium (3.5-5.1) meq/L Chloride (98-107) meq/L Carbon Dioxide (21.0-32.0) meq/L Anion Gap (5-15) meq/L BUN (7-18) mg/dL Creatinine (0.60-1.30) mg/dL Estimated GFR (>89) mL/min Random Glucose (74-106) mg/dL Lactic Acid (0.4-2.0) mmol/L Calcium (8.5-10.1) mg/dL Magnesium (1.5-2.5) mg/dL Total Bilirubin (0.2-1.0) mg/dL AST (15-37) U/L ALT (12-78) U/L Alkaline Phosphatase (45-117) U/L Total Creatine Kinase Cancelled (39-308) U/L Troponin I Cancelled (0.02-0.05) ng/mL B-Natriuretic Peptide (0-100) pg/mL Total Protein (6.4-8.2) g/dL Albumin (3.4-5.0) g/dL Urine Color (Yellw/Straw) Urine Clarity (Clear) Urine pH (5.0-8.5) Ur Specific [place] (1.002-1.035) Urine Protein (Neg-Trace) mg/dL Urine Glucose (UA) (Negative) mg/dL Urine Ketones (Negative) mg/dL Urine Occult Blood (Negative) Urine Nitrate (Negative) Urine Bilirubin (Negative) Urine Urobilinogen (Less than 2) mg/dL Ur Leukocyte Esterase (Negative) Urine WBC (0-5) /hpf Urine Mucus (Occasional) /lpf Micro UA Comment Urine Culture Comments Blood Type Antibody Screen MTS Gel Crossmatch 05/12/18 05/12/18 05/12/18 Range/Units 20:28 20:44 20:44 WBC (4.0-11.0) th/mm3 RBC (4.50-5.90) mil/mm3 Hgb (13.0-17.0) gm/dL Hct (39.0-51.0) % MCV (80.0-100.0) fL MCH (27.0-34.0) pg MCHC (32.0-36.0) % RDW (11.6-17.2) % Plt Count (150-450) th/mm3 MPV (7.0-11.0) fL Prelim Diff (Auto) Neut % (Auto) (16.0-70.0) % Lymph % (Auto) (9.0-44.0) % Warren % (Auto) (0.0-8.0) % Eos % (Auto) (0.0-4.0) % Baso % (Auto) (0.0-2.0) % Neut # (Auto) (1.8-7.7) th/mm3 Lymph # (Auto) (1.0-4.8) th/mm3 Warren # (Auto) (0.0-0.9) th/mm3 Eos # (Auto) (0.0-0.4) th/mm3 Baso # (Auto) (0.0-0.2) th/mm3 WBC Differential Seg Neuts % (Manual) (16-70) % Band Neuts % (Manual) (0-6) % Lymphocytes % (Manual) (9-44) % Monocytes % (Manual) (0-8) % Metamyelocytes % (Man) (0-1) % Myelocytes % (Man) (0-0) % Abs Neuts (Manual) (1.8-7.7) th/mm3 Differential Comment Platelet Estimate (Normal) Platelet Morphology (Normal) PT (9.8-11.6) sec INR Ratio APTT (24.3-30.1) sec Sodium (136-145) meq/L Potassium (3.5-5.1) meq/L Chloride (98-107) meq/L Carbon Dioxide (21.0-32.0) meq/L Anion Gap (5-15) meq/L BUN (7-18) mg/dL Creatinine (0.60-1.30) mg/dL Estimated GFR (>89) mL/min Random Glucose (74-106) mg/dL Lactic Acid (0.4-2.0) mmol/L Calcium (8.5-10.1) mg/dL Magnesium (1.5-2.5) mg/dL Total Bilirubin (0.2-1.0) mg/dL AST (15-37) U/L ALT (12-78) U/L Alkaline Phosphatase (45-117) U/L Total Creatine Kinase (39-308) U/L Troponin I (0.02-0.05) ng/mL B-Natriuretic Peptide (0-100) pg/mL Total Protein (6.4-8.2) g/dL Albumin (3.4-5.0) g/dL Urine Color Straw (Yellw/Straw) Urine Clarity Clear (Clear) Urine pH 6.0 (5.0-8.5) Ur Specific [place] 1.007 (1.002-1.035) Urine Protein Negative (Neg-Trace) mg/dL Urine Glucose (UA) 500 or greater (Negative) mg/dL Urine Ketones Negative (Negative) mg/dL Urine Occult Blood Negative (Negative) Urine Nitrate Negative (Negative) Urine Bilirubin Negative (Negative) Urine Urobilinogen Less than 2 (Less than 2) mg/dL Ur Leukocyte Esterase Negative (Negative) Urine WBC Less than 1 (0-5) /hpf Urine Mucus Few H (Occasional) /lpf Micro UA Comment Culture not ind Urine Culture Comments Culture not ind Blood Type B Positive Antibody Screen Negative MTS Gel Crossmatch See Detail 05/12/18 Range/Units 20:54 WBC (4.0-11.0) th/mm3 RBC (4.50-5.90) mil/mm3 Hgb (13.0-17.0) gm/dL Hct (39.0-51.0) % MCV (80.0-100.0) fL MCH (27.0-34.0) pg MCHC (32.0-36.0) % RDW (11.6-17.2) % Plt Count (150-450) th/mm3 MPV (7.0-11.0) fL Prelim Diff (Auto) Neut % (Auto) (16.0-70.0) % Lymph % (Auto) (9.0-44.0) % Warren % (Auto) (0.0-8.0) % Eos % (Auto) (0.0-4.0) % Baso % (Auto) (0.0-2.0) % Neut # (Auto) (1.8-7.7) th/mm3 Lymph # (Auto) (1.0-4.8) th/mm3 Warren # (Auto) (0.0-0.9) th/mm3 Eos # (Auto) (0.0-0.4) th/mm3 Baso # (Auto) (0.0-0.2) th/mm3 WBC Differential Seg Neuts % (Manual) (16-70) % Band Neuts % (Manual) (0-6) % Lymphocytes % (Manual) (9-44) % Monocytes % (Manual) (0-8) % Metamyelocytes % (Man) (0-1) % Myelocytes % (Man) (0-0) % Abs Neuts (Manual) (1.8-7.7) th/mm3 Differential Comment Platelet Estimate (Normal) Platelet Morphology (Normal) PT (9.8-11.6) sec INR Ratio APTT (24.3-30.1) sec Sodium (136-145) meq/L Potassium (3.5-5.1) meq/L Chloride (98-107) meq/L Carbon Dioxide (21.0-32.0) meq/L Anion Gap (5-15) meq/L BUN (7-18) mg/dL Creatinine (0.60-1.30) mg/dL Estimated GFR (>89) mL/min Random Glucose (74-106) mg/dL Lactic Acid 2.7 H (0.4-2.0) mmol/L Calcium (8.5-10.1) mg/dL Magnesium (1.5-2.5) mg/dL Total Bilirubin (0.2-1.0) mg/dL AST (15-37) U/L ALT (12-78) U/L Alkaline Phosphatase (45-117) U/L Total Creatine Kinase (39-308) U/L Troponin I (0.02-0.05) ng/mL B-Natriuretic Peptide (0-100) pg/mL Total Protein (6.4-8.2) g/dL Albumin (3.4-5.0) g/dL Urine Color (Yellw/Straw) Urine Clarity (Clear) Urine pH (5.0-8.5) Ur Specific [place] (1.002-1.035) Urine Protein (Neg-Trace) mg/dL Urine Glucose (UA) (Negative) mg/dL Urine Ketones (Negative) mg/dL Urine Occult Blood (Negative) Urine Nitrate (Negative) Urine Bilirubin (Negative) Urine Urobilinogen (Less than 2) mg/dL Ur Leukocyte Esterase (Negative) Urine WBC (0-5) /hpf Urine Mucus (Occasional) /lpf Micro UA Comment Urine Culture Comments Blood Type Antibody Screen MTS Gel Crossmatch Imaging Data Radiologist's impression: Cervical Spine CT 05/12/18 19:09 CONCLUSION: 1. Advanced discogenic and facet joint degenerative changes most prominent at the C6-7 interspace and the left lateral mass of C2-3. 2. No evidence of fracture or spondylolisthesis. Chest X-Ray 05/12/18 19:09 CONCLUSION: Cardiomegaly. No infiltrates seen. Forearm X-Ray 08/19/18 19:09 CONCLUSION: No evidence of recent bony injury. Forearm X-Ray 05/12/18 19:09 CONCLUSION: No evidence of recent bony injury. Hand X-Ray 05/12/18 19:09 CONCLUSION: No evidence of recent bony injury. No significant arthropathy. Head CT 05/12/18 19:09 CONCLUSION: 1. No acute findings in the brain. . Humerus X-Ray 05/12/18 19:09 CONCLUSION: Negative examination Humerus X-Ray 05/12/18 19:09 CONCLUSION: No evidence of recent bony injury. Discharge Plan Discharge Disposition Patient Disposition: 30 Still Patient Discharge Details Diagnosis: GI bleed, Anemia, Syncope Physicians Team ED Provider: Maureen Koch ED Midlevel Provider: Ekaterina Dunn Primary Care Provider: Frederick Jean Attending Provider: Cathy Marsh Status ED Status: Admitted Patient
[2018-05-12] MEDS ORDERED: HYDROmorphone PF Inj 2 MG/ML Vial IV.PUSH ONE (19:30)
[2018-05-12 19:33] LABS: Baso # (Auto) 0.1 th/mm3 (0.0-0.2); Baso % (Auto) 0.7 % (0.0-2.0); Eos % (Auto) 0.1 % (0.0-4.0); Hemoglobin 7.8 gm/dL (13.0-17.0); Lymph % (Auto) 10.5 % (9.0-44.0); Mean Corpuscular HGB Conc 31.1 % (32.0-36.0); Mean Corpuscular Hemoglobin 22.1 pg (27.0-34.0); Mean Corpuscular Volume 70.9 fL (80.0-100.0); Mean Platelet Volume 6.9 fL (7.0-11.0); Mono # (Auto) 1.4 th/mm3 (0.0-0.9); Mono % (Auto) 7.3 % (0.0-8.0); Neut # (Auto) 15.3 th/mm3 (1.8-7.7); Neut % (Auto) 81.4 % (16.0-70.0); Platelet Count 419 th/mm3 (150-450); Red Blood Count 3.53 mil/mm3 (4.50-5.90); Red Cell Distribution Width 17.8 % (11.6-17.2); White Blood Count 18.9 th/mm3 (4.0-11.0)
[2018-05-12 19:46] LABS: Albumin 3.1 g/dL (3.4-5.0); Anion Gap 13 meq/L (5-15); Aspartate Aminotransferase 30 U/L (15-37); Blood Urea Nitrogen 29 mg/dL (7-18); Calcium 8.7 mg/dL (8.5-10.1); Chloride 98 meq/L (98-107); Glomerular Filtration Rate 50 mL/min (>89); Glucose,Random 340 mg/dL (74-106); Magnesium 2.1 mg/dL (1.5-2.5); Potassium 4.3 meq/L (3.5-5.1); Sodium 135 meq/L (136-145)
[2018-05-12 19:47] LABS: Alanine Aminotransferase 89 U/L (12-78)
[2018-05-12 19:50] LABS: Activated Partial Thrombo Time 18.8 sec (24.3-30.1); Alkaline Phosphatase 76 U/L (45-117); Total Protein 6.2 g/dL (6.4-8.2)
[2018-05-12 19:53] LABS: Creatine Kinase 57 U/L (39-308)
--- NOTE | 2018-05-12 20:32 | CT ---
EXAM DATE: 05/12/2018 8:23 PM EDT AGE/SEX: 67 years / Male INDICATIONS: Syncope. Fell in shower. CLINICAL DATA: This is the patient's initial encounter. Patient reports that signs and symptoms have been present for 1 day and indicates a pain score of 5/10. MEDICAL/SURGICAL HISTORY: Cardiovascular disease. Diabetes mellitus type II. Chronic obstruct rahul pulmonary disease. Appendectomy. RADIATION DOSE: 41.15 CTDI (mGy) ; Patient body habitus COMPARISON: No prior exams available for comparison. TECHNIQUE: Contiguous axial images were obtained using helical multirow detector technique. The vol umetric data was post-processed with multiplanar reconstruction in oblique axial, sagittal, and coron al planes. Using automated exposure control and adjustment of the mA and/or kV according to patient s ize, radiation dose was kept as low as reasonably achievable to obtain optimal diagnostic quality dallin ges. DICOM format image data is available electronically for review and comparison. FINDINGS: There is straightening of the cervical lordosis. Vertebral body height is maintained. Multilevel disc ogenic degenerative changes are present in the lower cervical region and there is diffuse multilevel facet joint hypertrophy. The facet joints remain in normal alignment without evidence of locked or pe rched facets. There is marked narrowing of the C6-7 and C7-T1 interspaces. The atlantoaxial articulat ion is intact with moderately severe degenerative changes between the anterior arch of C1 and the den s. C2-3: No fractures seen. Moderately severe left bony neural foraminal stenosis. C3-4: No fracture seen. Moderately severe bilateral bony neural foraminal stenosis. C4-5: No fracture seen. Severe bilateral bony neural foraminal stenosis. C5-6: No fracture seen. Moderate severity bony neural foraminal stenosis. C6-7: Broad ridge of osteophytes flattens the ventral margin of thecal sac. No fracture seen. Modera te bilateral bony neural foraminal stenosis. C7-T1: No fracture seen. Severe right-sided bony neural foraminal stenosis. CONCLUSION: 1. Advanced discogenic and facet joint degenerative changes most prominent at the C6-7 interspace an d the left lateral mass of C2-3. 2. No evidence of fracture or spondylolisthesis. Electronically signed by: Sumeet Patel MD 05/12/2018 8:31 PM EDT
--- NOTE | 2018-05-12 20:33 | CT ---
EXAM DATE: 05/12/2018 8:19 PM EDT AGE/SEX: 67 years / Male INDICATIONS: Syncope. Fell in shower. CLINICAL DATA: This is the patient's initial encounter. Patient reports that signs and symptoms have been present for 1 day and indicates a pain score of 5/10. MEDICAL/SURGICAL HISTORY: Cerebrovascular disease. Diabetes mellitus type II. Chronic obstructive pulmonary disease. Appendectomy. RADIATION DOSE: 70.67 CTDI (mGy) ;Tabletop exam COMPARISON: No prior exams available for comparison. TECHNIQUE: CT of the head without contrast. Using automated exposure control and adjustment of the mA and/or kV according to patient size, radiation dose was kept as low as reasonably achievable to ob tain optimal diagnostic quality images. DICOM format image data is available electronically for revi ew and comparison. FINDINGS: Cerebrum: The ventricles are normal for age. No evidence of midline shift, mass lesion, hemorrhage or acute infarction. No extraaxial fluid collections are seen. Posterior Fossa: The cerebellum and brainstem are intact. The 4th ventricle is midline. The cerebe llopontine angle is unremarkable. Extracranial: The visualized portion of the orbits is intact. Skull: The calvaria is intact. No evidence of skull fracture. CONCLUSION: 1. No acute findings in the brain. . Electronically signed by: Sumeet Patel MD 05/12/2018 8:32 PM EDT
[2018-05-12 20:52] LABS: Lymphocytes 12 % (9-44); Metamyelocytes 1 % (0-1); Monocytes 5 % (0-8); Myelocytes 1 % (0-0)
[2018-05-12 20:53] LABS: Platelet Estimate Normal (Normal); Platelet Morphology Normal (Normal)
[2018-05-12 20:57] LABS: Bilirubin,Urine Negative (Negative); Clarity,Urine Clear (Clear); Color,Urine Straw (Yellw/Straw); Glucose,Urine (UA) 500 or Greater mg/dL (Negative); Leukocyte Esterase,Urine Negative (Negative); Mucus,Urine Few /lpf (Occasional); Nitrite,Urine Negative (Negative); Specific Gravity,Urine 1.007 (1.002-1.035)
--- NOTE | 2018-05-12 21:13 | XR ---
EXAM DATE: 05/12/2018 8:14 PM EDT AGE/SEX: 67 years / Male INDICATIONS: Pain in entire left forearm from fall. CLINICAL DATA: This is the patient's initial encounter. Patient reports that signs and symptoms have been present for 1 day and indicates a pain score of 5/10. MEDICAL/SURGICAL HISTORY: . Hypertension. Diabetes. Chronic obstructive pulmonary disease. PAUL D. CAD. Anemia. Atrial fibrillation. Hypercholesterolemia. Myocardial Infarction. . Prostatectomy. Cardiac Catheterization with stent placement, loop recorder. Left patellar surgery. Multiple back and neck surgeries. COMPARISON: No prior exams available for comparison. FINDINGS: Bony structures are intact and in normal alignment. Osseous density is normal. Soft tissues are unre markable. No radiopaque foreign bodies seen. CONCLUSION: No evidence of recent bony injury. Electronically signed by: Sumeet Patel MD 05/12/2018 9:12 PM EDT
--- NOTE | 2018-05-12 21:13 | XR ---
EXAM DATE: 05/12/2018 8:13 PM EDT AGE/SEX: 67 years / Male INDICATIONS: Pain in bilateral shoulders from fall. CLINICAL DATA: This is the patient's initial encounter. Patient reports that signs and symptoms have been present for 1 day and indicates a pain score of 10/10. MEDICAL/SURGICAL HISTORY: . Hypertension. Diabetes. Chronic obstructive pulmonary disease. PAUL D. CAD. Anemia. Atrial fibrillation. Hypercholesterolemia. Myocardial Infarction. . Prostatectomy. C ardiac Catheterization with stent placement, loop recorder. Left patellar surgery. Multiple back and neck surgeries. COMPARISON: [facility] [place], CHEST SINGLE AP, 01/30/2018. . FINDINGS: The heart is enlarged. Loop recorder device in place. The lungs are symmetrically aerated. No infiltr ates seen. No evidence of pneumothorax on this semierect film. Both hemidiaphragms well delineated. CONCLUSION: Cardiomegaly. No infiltrates seen. Electronically signed by: Sumeet Patel MD 05/12/2018 9:12 PM EDT
[2018-05-12] MEDS ORDERED: Pantoprazole Inj 40 MG Vial IV.PUSH ONE (21:14)
--- NOTE | 2018-05-12 21:14 | XR ---
EXAM DATE: 05/12/2018 8:16 PM EDT AGE/SEX: 67 years / Male INDICATIONS: Pain in right distal forearm. CLINICAL DATA: This is the patient's initial encounter. Patient reports that signs and symptoms have been present for 1 day and indicates a pain score of 4/10. MEDICAL/SURGICAL HISTORY: . Hypertension. Diabetes. Chronic obstructive pulmonary disease. PAUL D. CAD. Anemia. Atrial fibrillation. Hypercholesterolemia. Myocardial Infarction. . Prostatectomy. Cardiac Catheterization with stent placement, loop recorder. Left patellar surgery. Multiple back and neck surgeries. COMPARISON: No prior exams available for comparison. FINDINGS: Bony structures are intact and in normal alignment. Osseous density is normal. Soft tissues are unre markable. Angiocath proximal lateral forearm. No radiopaque foreign bodies seen. CONCLUSION: No evidence of recent bony injury. Electronically signed by: Sumeet Patel MD 05/12/2018 9:13 PM EDT
--- NOTE | 2018-05-12 21:15 | XR ---
EXAM DATE: 05/12/2018 8:17 PM EDT AGE/SEX: 67 years / Male INDICATIONS: Pain and numbness in right hand and digits. CLINICAL DATA: This is the patient's initial encounter. Patient reports that signs and symptoms have been present for 1 day and indicates a pain score of 8/10. MEDICAL/SURGICAL HISTORY: . Hypertension. Diabetes. Chronic obstructive pulmonary disease. PAUL D. CAD. Anemia. Atrial fibrillation. Hypercholesterolemia. Myocardial Infarction. . Prostatectomy. Cardiac Catheterization with stent placement, loop recorder. Left patellar surgery. Multiple back and neck surgeries. COMPARISON: No prior exams available for comparison. FINDINGS: Bony structures are intact and in normal alignment. Osseous density is normal. Soft tissues are unre markable. Negative ulnar variance. No radiopaque foreign bodies seen. CONCLUSION: No evidence of recent bony injury. No significant arthropathy. Electronically signed by: Sumeet Patel MD 05/12/2018 9:14 PM EDT
--- NOTE | 2018-05-12 21:15 | XR ---
EXAM DATE: 05/12/2018 8:18 PM EDT AGE/SEX: 67 years / Male INDICATIONS: Pain in left proximal arm. CLINICAL DATA: This is the patient's initial encounter. Patient reports that signs and symptoms have been present for 1 day and indicates a pain score of 10/10. MEDICAL/SURGICAL HISTORY: . Hypertension. Diabetes. Chronic obstructive pulmonary disease. PAUL D. CAD. Anemia. Atrial fibrillation. Hypercholesterolemia. Myocardial Infarction. . Prostatectomy. Cardiac Catheterization with stent placement, loop recorder. Left patellar surgery. Multiple back and neck surgeries. COMPARISON: No prior exams available for comparison. FINDINGS: Bony structures are intact and in normal alignment. Osseous density is normal. Soft tissues are unre markable. No radiopaque foreign bodies seen. CONCLUSION: Negative examination Electronically signed by: Sumeet Patel MD 05/12/2018 9:14 PM EDT
--- NOTE | 2018-05-12 21:16 | XR ---
EXAM DATE: 05/12/2018 8:19 PM EDT AGE/SEX: 67 years / Male INDICATIONS: Pain in right proximal humerus from fall. CLINICAL DATA: This is the patient's initial encounter. Patient reports that signs and symptoms have been present for 1 day and indicates a pain score of 5/10. MEDICAL/SURGICAL HISTORY: . Hypertension. Diabetes. Chronic obstructive pulmonary disease. PAUL D. CAD. Anemia. Atrial fibrillation. Hypercholesterolemia. Myocardial Infarction. . Prostatectomy. Cardiac Catheterization with stent placement, loop recorder. Left patellar surgery. Multiple back and neck surgeries. COMPARISON: No prior exams available for comparison. FINDINGS: Bony structures are intact and in normal alignment. Osseous density is normal. Soft tissues are unre markable. No radiopaque foreign bodies seen. CONCLUSION: No evidence of recent bony injury. Electronically signed by: Sumeet Patel MD 05/12/2018 9:14 PM EDT
[2018-05-12] MEDS ORDERED: Sodium Chlor 0.9% Inj 500 ML IV.SIG ONE (21:33)
[2018-05-12] MEDS ORDERED: Morphine Inj 4 MG/ML Vial IV.PUSH PRN (22:07)
[2018-05-12] MEDS ORDERED: Dextrose 50% in Water 50 ML Vial IV.PUSH PRN (22:10)
--- NOTE | 2018-05-12 22:22 | P.HP ---
History of Present Illness Service: [facility] Primary Care Physician: Frederick Jean History of Present Illness: 67-year-old male with a past medical history significant for atrial fibrillation anticoagulated on Eliquis, diabetes mellitus, coronary artery disease status post [place], CHF (last ejection fraction 55%), COPD and a history of breast, colon and prostate cancers presents to the emergency department for the evaluation of a syncopal episode. The patient reports that he was getting ready to go to the bathroom when he had a syncopal episode, falling into the shower and hitting his head and shoulder. He reports headache, neck pain, left shoulder pain and arm pain, right arm pain all of which she says is an 8 out of 10. He denies any chest pain or shortness of breath. No abdominal pain. No nausea/vomiting/diarrhea. The patient reports he has had 3 falls over the past week. He was seen in the hospital in [facility] last week for respiratory symptoms where he was placed on Levaquin and p.o. steroids which she completed earlier today. Patient denies any fevers/chills. No lateralizing signs/ symptoms. Inpatient Certification: I certify that the inpatient services were ordered in accordance with Medicare regulations governing the order. This includes certification that hospital inpatient services are reasonable and necessary and in the case of services not specified as inpatient-only under 42 CFR 419.22(n), that they are appropriately provided as inpatient services in accordance to with the 2-midnight benchmark under 43 CFR 412.3(e) Estimated Total Length of Stay (Days): 2 Plans for Post Hospital Care: Home Review of Systems All other systems reviewed negative except as stated in HPI [facility] - History History Provided By: Patient, Significant Other - Medical History Medical History: Medical History (Last Updated 05/12/18 @ 22:14 by Cathy Marsh MD) A-fib CAD (coronary artery disease) CHF (congestive heart failure) Diabetes History of COPD History of breast cancer History of colon cancer History of prostate cancer Hx of syncope - Surgical History Surgical History: Surgical History (Last Updated 05/12/18 @ 22:15 by Cathy Marsh MD) H/O knee surgery H/O neck surgery H/O prostatectomy H/O shoulder surgery History of colon resection Hx of appendectomy Hx of cholecystectomy Previous back surgery - Family History Family History: Family History (Last Updated 05/12/18 @ 22:15 by Cathy Marsh MD) Other Diabetes mellitus - Tobacco History Second Hand Smoke Exposure: No Smoking Status: Former smoker Tobacco Type: Cigarettes - Alcohol History How Often Do You Have a Drink Containing Alcohol: Never - Substance Use History Substance History: No History of Abuse - Travel History Recent Travel in the [place] Within the Last 8 Weeks: No Recent Travel Out of the Country Within the Last 8 Weeks: No - Immunization History Tetanus Immunization: <5 Years Hx Influenza Vaccine This Season: Yes Medications and Allergies Active Medications: Active Medications Amiodarone HCl (Cordarone) 200 mg PO DAILY SHAWN Amlodipine Besylate (Norvasc) 5 mg PO DAILY SHAWN Atorvastatin Calcium (Lipitor) 10 mg PO HS SHAWN Clopidogrel Bisulfate (Plavix) 75 mg PO DAILY SHAWN Allergies Allergy/AdvReac Type Severity Reaction Status Date / Time adhesive Allergy Severe Rash Verified 05/12/18 19:12 atorvastatin Allergy Severe MUSCLE Verified 05/12/18 19:12 WEAKNESS pravastatin Allergy Severe MUSCLE Verified 05/12/18 19:12 WEAKNESS rosuvastatin Allergy Severe MUSCLE Verified 05/12/18 19:12 WEAKNESS morphine AdvReac Severe BECOMES Verified 05/12/18 19:12 VERY AGGRESSIVE Home Medications Medication Instructions Recorded Confirmed Type amiodarone 200 mg PO DAILY 05/12/18 05/12/18 History amlodipine 5 mg PO DAILY 05/12/18 05/12/18 History apixaban [Eliquis] 5 mg PO BID 05/12/18 05/12/18 History atorvastatin 10 mg PO 05/12/18 History clopidogrel 75 mg PO DAILY 05/12/18 05/12/18 History duloxetine 60 mg PO DAILY 05/12/18 05/12/18 History furosemide 40 mg PO DAILY 05/12/18 05/12/18 History gabapentin 600 mg PO BID 05/12/18 05/12/18 History glimepiride 2 mg PO QAM 05/12/18 05/12/18 History hydrocodone-acetaminophen 1 tab PO Q6H PRN 05/12/18 05/12/18 History insulin NPH isoph U-100 human 95 unit SUB-Q AC 05/12/18 05/12/18 History [Novolin N NPH U-100 Insulin] insulin regular human [Novolin R 20 unit SUB-Q QAM 05/12/18 05/12/18 History Regular U-100 Insuln] isosorbide mononitrate 05/12/18 History losartan-hydrochlorothiazide 05/12/18 05/12/18 History metolazone 05/12/18 History metoprolol tartrate 75 mg PO BID 05/12/18 05/12/18 History montelukast 10 mg PO QPM 05/12/18 05/12/18 History pantoprazole 40 mg PO DAILY 05/12/18 05/12/18 History ropinirole 0.5 mg PO TID 05/12/18 05/12/18 History Exam Vital signs: Vital Signs 05/12/18 19:04 05/12/18 19:12 05/12/18 21:32 Temperature 98.1 F 98.1 F Pulse Rate 74 73 68 Respiratory Rate 18 18 Blood Pressure 129/60 129/60 Pulse Oximetry 98 98 Intake & Output 05/12/18 05/12/18 05/13/18 06:59 18:59 06:59 Weight 154.675 kg Narrative: Gen.: No acute distress. Obese male lying in bed. Head: Normocephalic. Atraumatic. EENT: Pupils equal round and reactive to light. Nose without drainage. Airway intact. Throat without injection. Cardiovascular: Regular rate and rhythm. No murmurs, rubs or gallops. Respiratory: Lungs clear to auscultation bilaterally. No wheezes or rhonchi. Abdomen: Soft, nontender, nondistended. No peritoneal signs. Musculoskeletal: No gross deformities. No edema. Skin: No obvious rashes or erythema. Neuro: Sensory and motor grossly intact. Cranial nerves II through XII grossly intact. Results - Labs CBC & Chem 7: 05/12/18 19:15 05/12/18 19:15 Labs: Laboratory Results - last 24 hr 05/12/18 05/12/18 05/12/18 19:15 19:15 19:15 WBC RBC Hgb Hct MCV MCH MCHC RDW Plt Count MPV Prelim Diff (Auto) Neut % (Auto) Lymph % (Auto) [place] % (Auto) Eos % (Auto) Baso % (Auto) Neut # (Auto) Lymph # (Auto) [place] # (Auto) Eos # (Auto) Baso # (Auto) WBC Differential Seg Neuts % (Manual) Band Neuts % (Manual) Lymphocytes % (Manual) Monocytes % (Manual) Metamyelocytes % (Man) Myelocytes % (Man) Abs Neuts (Manual) Differential Comment Platelet Estimate Platelet Morphology PT 10.0 INR 1.0 APTT 18.8 L Sodium 135 L Potassium 4.3 Chloride 98 Carbon Dioxide 24.0 Anion Gap 13 BUN 29 H Creatinine 1.41 H Estimated GFR 50 L Random Glucose 340 H Lactic Acid Calcium 8.7 Magnesium 2.1 Total Bilirubin 0.3 AST 30 ALT 89 H Alkaline Phosphatase 76 Total Creatine Kinase 57 Troponin I Less than 0.02 L B-Natriuretic Peptide 194 H Total Protein 6.2 L Albumin 3.1 L Urine Color Urine Clarity Urine pH Ur Specific [place] Urine Protein Urine Glucose (UA) Urine Ketones Urine Occult Blood Urine Nitrate Urine Bilirubin Urine Urobilinogen Ur Leukocyte Esterase Urine WBC Urine Mucus Micro UA Comment Urine Culture Comments Blood Type Antibody Screen MTS Gel Crossmatch 05/12/18 05/12/18 05/12/18 19:15 19:15 19:15 WBC 18.9 H RBC 3.53 L Hgb 7.8 L Hct 25.0 L MCV 70.9 L MCH 22.1 L MCHC 31.1 L RDW 17.8 H Plt Count 419 MPV 6.9 L Prelim Diff (Auto) Slide review pending Neut % (Auto) 81.4 H Lymph % (Auto) 10.5 [place] % (Auto) 7.3 Eos % (Auto) 0.1 Baso % (Auto) 0.7 Neut # (Auto) 15.3 H Lymph # (Auto) 2.0 [place] # (Auto) 1.4 H Eos # (Auto) 0.0 Baso # (Auto) 0.1 WBC Differential Manual diff final Seg Neuts % (Manual) 77 H Band Neuts % (Manual) 4 Lymphocytes % (Manual) 12 Monocytes % (Manual) 5 Metamyelocytes % (Man) 1 Myelocytes % (Man) 1 H Abs Neuts (Manual) 15.7 H Differential Comment . Platelet Estimate Normal Platelet Morphology Normal PT INR APTT Sodium Potassium Chloride Carbon Dioxide Anion Gap BUN Creatinine Estimated GFR Random Glucose Lactic Acid Calcium Magnesium Total Bilirubin AST ALT Alkaline Phosphatase Total Creatine Kinase Cancelled Troponin I Cancelled B-Natriuretic Peptide Total Protein Albumin Urine Color Urine Clarity Urine pH Ur Specific [place] Urine Protein Urine Glucose (UA) Urine Ketones Urine Occult Blood Urine Nitrate Urine Bilirubin Urine Urobilinogen Ur Leukocyte Esterase Urine WBC Urine Mucus Micro UA Comment Urine Culture Comments Blood Type Antibody Screen MTS Gel Crossmatch 05/12/18 05/12/18 05/12/18 20:28 20:44 20:44 WBC RBC Hgb Hct MCV MCH MCHC RDW Plt Count MPV Prelim Diff (Auto) Neut % (Auto) Lymph % (Auto) [place] % (Auto) Eos % (Auto) Baso % (Auto) Neut # (Auto) Lymph # (Auto) [place] # (Auto) Eos # (Auto) Baso # (Auto) WBC Differential Seg Neuts % (Manual) Band Neuts % (Manual) Lymphocytes % (Manual) Monocytes % (Manual) Metamyelocytes % (Man) Myelocytes % (Man) Abs Neuts (Manual) Differential Comment Platelet Estimate Platelet Morphology PT INR APTT Sodium Potassium Chloride Carbon Dioxide Anion Gap BUN Creatinine Estimated GFR Random Glucose Lactic Acid Calcium Magnesium Total Bilirubin AST ALT Alkaline Phosphatase Total Creatine Kinase Troponin I B-Natriuretic Peptide Total Protein Albumin Urine Color Straw Urine Clarity Clear Urine pH 6.0 Ur Specific [place] 1.007 Urine Protein Negative Urine Glucose (UA) 500 or greater Urine Ketones Negative Urine Occult Blood Negative Urine Nitrate Negative Urine Bilirubin Negative Urine Urobilinogen Less than 2 Ur Leukocyte Esterase Negative Urine WBC Less than 1 Urine Mucus Few H Micro UA Comment Culture not ind Urine Culture Comments Culture not ind Blood Type B Positive Antibody Screen Negative MTS Gel Crossmatch See Detail 05/12/18 20:54 WBC RBC Hgb Hct MCV MCH MCHC RDW Plt Count MPV Prelim Diff (Auto) Neut % (Auto) Lymph % (Auto) [place] % (Auto) Eos % (Auto) Baso % (Auto) Neut # (Auto) Lymph # (Auto) [place] # (Auto) Eos # (Auto) Baso # (Auto) WBC Differential Seg Neuts % (Manual) Band Neuts % (Manual) Lymphocytes % (Manual) Monocytes % (Manual) Metamyelocytes % (Man) Myelocytes % (Man) Abs Neuts (Manual) Differential Comment Platelet Estimate Platelet Morphology PT INR APTT Sodium Potassium Chloride Carbon Dioxide Anion Gap BUN Creatinine Estimated GFR Random Glucose Lactic Acid 2.7 H Calcium Magnesium Total Bilirubin AST ALT Alkaline Phosphatase Total Creatine Kinase Troponin I B-Natriuretic Peptide Total Protein Albumin Urine Color Urine Clarity Urine pH Ur Specific [place] Urine Protein Urine Glucose (UA) Urine Ketones Urine Occult Blood Urine Nitrate Urine Bilirubin Urine Urobilinogen Ur Leukocyte Esterase Urine WBC Urine Mucus Micro UA Comment Urine Culture Comments Blood Type Antibody Screen MTS Gel Crossmatch - Imaging Impressions Cervical Spine CT 05/12/18 19:09 CONCLUSION: 1. Advanced discogenic and facet joint degenerative changes most prominent at the C6-7 interspace and the left lateral mass of C2-3. 2. No evidence of fracture or spondylolisthesis. Chest X-Ray 05/12/18 19:09 CONCLUSION: Cardiomegaly. No infiltrates seen. Forearm X-Ray 05/12/18 19:09 CONCLUSION: No evidence of recent bony injury. Forearm X-Ray 05/12/18 19:09 CONCLUSION: No evidence of recent bony injury. Hand X-Ray 05/12/18 19:09 CONCLUSION: No evidence of recent bony injury. No significant arthropathy. Head CT 05/12/18 19:09 CONCLUSION: 1. No acute findings in the brain. . Humerus X-Ray 05/12/18 19:09 CONCLUSION: Negative examination Humerus X-Ray 05/12/18 19:09 CONCLUSION: No evidence of recent bony injury. Caprini VTE Risk Assessment Caprini VTE Risk Assessment: Moderate/High Risk (score >= 2) Caprini Risk Assessment Model: Point Value = 1 Point Value = 2 Point Value = 3 Point Value = 5 Age 41-60 Minor surgery BMI > 25 kg/m2 Swollen legs Varicose veins or History of unexplained or recurrent spontaneous Oral contraceptives or hormone replacement Sepsis (< 1 month) Serious lung disease, including pneumonia (< 1 month) Abnormal pulmonary function Acute myocardial infarction Congestive heart failure (< 1 month) History of inflammatory bowel disease Medical patient at bed rest Age 61-74 Arthroscopic surgery Major open surgery (> 45 min) Laparoscopic surgery (> 45 min) Malignancy Confined to bed (> 72 hours) Immobilizing plaster cast Central venous access Age >= 75 History of VTE Family history of VTE Factor V Leiden Prothrombin [id number] Lupus anticoagulant Anticardiolipin antibodies Elevated serum homocysteine Heparin-induced thrombocytopenia Other congenital or acquired thrombophilia Stroke (< 1 month) Elective arthroplasty Hip, pelvis, or leg fracture Acute spinal cord injury (< 1 month) Prophylaxis Regimen: Total Risk Factor Score Risk Level Prophylaxis Regimen 0-1 Low Early ambulation 2 Moderate Order ONE of the following: *Sequential Compression Device (SCD) *Heparin 5000 units SQ BID 3-4 Higher Order ONE of the following medications: *Heparin 5000 units SQ TID *Enoxaparin/Lovenox 40 mg SQ daily (WT < 150 kg, CrCl > 30 mL/min) *Enoxaparin/Lovenox 30 mg SQ daily (WT < 150 kg, CrCl > 10-29 mL/min) *Enoxaparin/Lovenox 30 mg SQ BID (WT < 150 kg, CrCl > 30 mL/min) AND/OR *Sequential Compression Device (SCD) 5 or more Highest Order ONE of the following medications: *Heparin 5000 units SQ TID (Preferred with Epidurals) *Enoxaparin/Lovenox 40 mg SQ daily (WT < 150 kg, CrCl > 30 mL/min) *Enoxaparin/Lovenox 30 mg SQ daily (WT < 150 kg, CrCl > 10-29 mL/min) *Enoxaparin/Lovenox 30 mg SQ BID (WT < 150 kg, CrCl > 30 mL/min) AND *Sequential Compression Device (SCD) Assessment and Plan - Plan Assessment/plan: 1. Symptomatic anemia/syncope/lower GI bleed H&H 7.8/25.0 Hemoccult positive ED with history of black, tarry stools N.p.o. IV Protonix Gastroenterology consulted, appreciate recommendations GoLYTELY Echo/carotid ultrasound to evaluate for other etiologies of syncope Transfuse 2 units packed red blood cells Monitor CBC 2. Hyperglycemia/diabetes mellitus Sugar 340 however patient just completed p.o. steroids Sliding-scale insulin Monitor blood glucose 3. Atrial fibrillation Continue amiodarone/metoprolol Holding home Eliquis secondary to GI bleed 4. CHF/CAD Status post [place] Holding Plavix secondary to GI bleed Continue home medications FEN N.p.o. Electrolytes: Monitor and replete as needed Holding pharmacologic anticoagulation secondary to GI bleed
[2018-05-12 23:22] LABS: Baso # (Auto) 0.2 th/mm3 (0.0-0.2); Baso % (Auto) 0.9 % (0.0-2.0); Eos % (Auto) 0.2 % (0.0-4.0); Hematocrit 25.5 % (39.0-51.0); Hemoglobin 7.4 gm/dL (13.0-17.0); Lymph # (Auto) 3.2 th/mm3 (1.0-4.8); Lymph % (Auto) 16.4 % (9.0-44.0); Mean Corpuscular Hemoglobin 20.4 pg (27.0-34.0); Mean Corpuscular Volume 70.4 fL (80.0-100.0); Mean Platelet Volume 6.8 fL (7.0-11.0); Mono % (Auto) 10.6 % (0.0-8.0); Neut # (Auto) 13.9 th/mm3 (1.8-7.7); Neut % (Auto) 71.9 % (16.0-70.0); Platelet Count 432 th/mm3 (150-450); Red Blood Count 3.62 mil/mm3 (4.50-5.90); Red Cell Distribution Width 17.5 % (11.6-17.2); White Blood Count 19.3 th/mm3 (4.0-11.0)
[2018-05-12 23:43] LABS: Calcium 8.2 mg/dL (8.5-10.1); Carbon Dioxide 30.6 meq/L (21.0-32.0); Potassium 3.6 meq/L (3.5-5.1)
[2018-05-13] MEDS: PEG 3350/E-Lyte Soln 4000 ML Bottle PO SCH ×56 (00:06→22:54)
[2018-05-13] MEDS: HYDROmorphone PF Inj 2 MG/ML Vial IV.PUSH PRN ×2 (00:35→09:37)
[2018-05-13] MEDS: Insulin NovoLOG Aspart Correctional Sugar Inj SQ SCH ×5 (04:02→21:21)
[2018-05-13] MEDS: amLODIPine 5 MG Tablet PO SCH (08:02)
[2018-05-13] MEDS: Furosemide 40 MG Tablet PO SCH (08:02)
[2018-05-13] MEDS: Metoprolol Tartrate 25 MG Tablet PO SCH ×2 (08:02→20:45)
[2018-05-13] MEDS: hydroCHLOROthiazide 25 MG Tablet PO SCH (08:02)
[2018-05-13] MEDS: Amiodarone 200 MG Tablet PO SCH (08:02)
[2018-05-13] MEDS: Duloxetine 60 MG DR Capsule PO SCH (08:03)
[2018-05-13] MEDS: Pantoprazole Inj 40 MG Vial IV.PUSH SCH (08:03)
[2018-05-13] MEDS: Gabapentin 300 MG Capsule PO SCH ×2 (08:03→20:45)
[2018-05-13] MEDS: metOLazone 5 MG Tablet PO SCH (08:04)
--- NOTE | 2018-05-13 11:08 | US ---
EXAM DATE: 05/13/2018 10:38 AM EDT AGE/SEX: 67 years / Male INDICATIONS: Syncope. Fall with head injury. CLINICAL DATA: This is the patient's initial encounter. Patient reports that signs and symptoms have been present for 2 days and indicates a pain score of 8/10. MEDICAL/SURGICAL HISTORY: Congestive heart failure. Diabetes. Chronic obstructive pulmonary d isease. Afib. CAD. Prostate cancer. Colon cancer. Breast cancer. Anticoagulation therapy. Myocardial infarction. Prostatectomy. Appendectomy. Cholecystectomy. Colon resection. Knee surgery. Neck gan rgery. Shoulder surgery. Back surgery. COMPARISON: No prior exams available for comparison. VELOCITY PARAMETERS: ICA/CCA Ratio: Right 0.79 , Left 0.64 ICA: Right 88 cm/sec, Left 100 cm/sec CCA: Right 111 cm/sec, Left 156 cm/sec ECA: Right 152 cm/sec, Left 136 cm/sec Vertebral: Right 75 cm/sec antegrade, Left 65 cm/sec antegrade FINDINGS: Right Carotid: There is mild calcified and noncalcified plaque in the distal common carotid artery a nd carotid bulb.The waveforms are within normal limits. Left Carotid: There is mild noncalcified and calcified plaque in the distal common carotid artery an d carotid bulb. The waveforms are within normal limits. Other: None. CONCLUSION: 1. Right Internal Carotid Artery: Findings indicate <50% stenosis. 2. Left Internal Carotid Artery: Findings indicate <50% stenosis. Electronically signed by: Priyank Morfin MD 05/13/2018 11:07 AM EDT
[2018-05-13] MEDS ORDERED: Naloxone Inj 0.4 MG/ML Vial IV.PUSH PRN (11:47)
--- NOTE | 2018-05-13 12:34 | P.CONGI ---
History of Present Illness Consult date: 05/13/18 Consult reason: Melena stools ,GI bleed Chief complaint: GI bleed, anemia, syncope History of Present Illness: This is a 67-year-old male who came in to the hospital for evaluation on 2017. Patient had symptoms of melena stools for approximately 2 weeks and for the past week had noted dizziness and weakness. According to the record patient has fell 3 times related to dizziness and and syncope over the past week at home and was noting headaches and generalized muscle skeletal pain on admission. Patient has been on Eliquis and Plavix for atrial fib which currently have been placed on hold today. Patient denies any nausea or vomiting no diarrhea no constipation and no abdominal pain. In the emergency room setting patient did have positive Hemoccult. Aggregating factors to patient's melena stools were probably related to dual blood thinners. No alleviating factors. On admission current hemoglobin was 7.8 and is now 7.4 and patient received 1 unit transfusion. Current PT/INR is 1. And WBC count 19.3. Patient states last EGD colonoscopy approximately [address] Harper and notes a history of polyps. Gastroenterology has been consulted to assist with his care, and review any evidence of GI bleed. <ySdnie Dorado - Last Filed: 05/13/18 12:20> Review of Systems All other systems reviewed negative except as stated in HPI <Sydnie Dorado - Last Filed: 05/13/18 12:20> PMFSH - History History Provided By: Patient, Medical Record - Medical History Medical History: Medical History (Last Updated 05/12/18 @ 22:14 by Cathy Marsh MD) A-fib CAD (coronary artery disease) CHF (congestive heart failure) Diabetes History of COPD History of breast cancer History of colon cancer History of prostate cancer Hx of syncope - Surgical History Surgical History: Surgical History (Last Updated 05/12/18 @ 22:15 by Cathy Marsh MD) H/O knee surgery H/O neck surgery H/O prostatectomy H/O shoulder surgery History of colon resection Hx of appendectomy Hx of cholecystectomy Previous back surgery - Family History Family History: Family History (Last Updated 05/12/18 @ 22:15 by Cathy Marsh MD) Other Diabetes mellitus - Tobacco History Second Hand Smoke Exposure: No Tobacco Use In Past 30 Days: No Smoking Status: Former smoker Tobacco Type: Cigarettes - Alcohol History How Often Do You Have a Drink Containing Alcohol: Monthly or less - Substance Use History Substance History: No History of Abuse - Travel History Recent Travel in the [place] Within the Last 8 Weeks: No Recent Travel Out of the Country Within the Last 8 Weeks: No - Immunization History Tetanus Immunization: <5 Years Hx Influenza Vaccine This Season: Yes <Sydnie Dorado - Last Filed: 05/13/18 12:20> - Medical History Medical History: Medical History (Last Updated 05/12/18 @ 22:14 by Cathy Marsh MD) A-fib CAD (coronary artery disease) CHF (congestive heart failure) Diabetes History of COPD History of breast cancer History of colon cancer History of prostate cancer Hx of syncope - Surgical History Surgical History: Surgical History (Last Updated 05/12/18 @ 22:15 by Cathy Marsh MD) H/O knee surgery H/O neck surgery H/O prostatectomy H/O shoulder surgery History of colon resection Hx of appendectomy Hx of cholecystectomy Previous back surgery - Family History Family History: Family History (Last Updated 05/12/18 @ 22:15 by Cathy Marsh MD) Other Diabetes mellitus <Lee Guardado - Last Filed: 05/13/18 19:56> Medications and Allergies Active Medications: Active Medications Amiodarone HCl (Cordarone) 200 mg PO DAILY [facility] Last Admin: 05/13/18 08:02 Dose: 200 mg Amlodipine Besylate (Norvasc) 5 mg PO DAILY [facility] Last Admin: 05/13/18 08:02 Dose: 5 mg Atorvastatin Calcium (Lipitor) 10 mg PO [facility] Dextrose (D50w Vial) 50 ml IV.PUSH UNSCH PRN PRN Reason: PER HYPOGLYCEMIA PROTOCOL Duloxetine HCl (Cymbalta) 60 mg PO DAILY [facility] Last Admin: 05/13/18 08:03 Dose: Not Given Furosemide (Lasix) 40 mg PO DAILY [facility] Last Admin: 05/13/18 08:02 Dose: 40 mg Gabapentin (Neurontin) 600 mg PO BID [facility] Last Admin: 05/13/18 08:03 Dose: Not Given Glucagon (Glucagon Inj) 1 mg OTHER PRN PRN PRN Reason: for Hypoglycemia Protocol Hydrochlorothiazide (Hydrodiuril) 25 mg PO DAILY [facility] Last Admin: 05/13/18 08:02 Dose: 25 mg Insulin Aspart (Novolog Insulin Correctional Sugar Inj) 0 unit SQ ACHS AND 3AM [facility]; Protocol Last Admin: 05/13/18 12:16 Dose: Not Given Losartan Potassium (Cozaar) 100 mg PO DAILY [facility] Last Admin: 05/13/18 08:02 Dose: 100 mg Metolazone (Zaroxolyn) 5 mg PO DAILY [facility] Last Admin: 05/13/18 08:04 Dose: Not Given Metoprolol Tartrate (Lopressor) 75 mg PO BID [facility] Last Admin: 05/13/18 08:02 Dose: 75 mg Naloxone HCl (Narcan Inj) 0.4 mg IV.PUSH UNSCH PRN PRN Reason: SEE LABEL COMMENTS Ondansetron HCl (Zofran Inj) 4 mg IV.PUSH Q6H PRN PRN Reason: NAUSEA Oxycodone HCl (Roxicodone) 5 mg PO Q4H PRN PRN Reason: PAIN SCALE 3 TO 5 Oxycodone HCl (Roxicodone) 10 mg PO Q4H PRN PRN Reason: PAIN SCALE 6 TO 10 Pantoprazole Sodium (Protonix Inj) 40 mg IV.PUSH DAILY [facility] Last Admin: 05/13/18 08:03 Dose: Not Given Polyethylene Glycol/Electrolytes (Colyte Liq) 240 ml PO Q10M [facility] Stop: 05/13/18 22:59 Last Admin: 05/13/18 11:47 Dose: Not Given Sodium Chloride (Ns Flush) 2 ml IV.FLUSH PRN PRN PRN Reason: FLUSH AFTER USING IV ACCESS Sodium Chloride (Ns Flush) 2 ml IV.FLUSH BID [facility] Last Admin: 05/13/18 08:03 Dose: 2 ml <Sydnie Dorado M - Last Filed: 05/13/18 12:20> Active Medications: Active Medications Amiodarone HCl (Cordarone) 200 mg PO DAILY [facility] Last Admin: 05/13/18 08:02 Dose: 200 mg Amlodipine Besylate (Norvasc) 5 mg PO DAILY [facility] Last Admin: 05/13/18 08:02 Dose: 5 mg Aspirin (Aspirin Chew) 81 mg PO DAILY [facility] Atorvastatin Calcium (Lipitor) 10 mg PO HS [facility] Clopidogrel Bisulfate (Plavix) 75 mg PO DAILY [facility] Dextrose (D50w Vial) 50 ml IV.PUSH UNSCH PRN PRN Reason: PER HYPOGLYCEMIA PROTOCOL Duloxetine HCl (Cymbalta) 60 mg PO DAILY [facility] Last Admin: 05/13/18 08:03 Dose: Not Given Furosemide (Lasix) 40 mg PO DAILY [facility] Last Admin: 05/13/18 08:02 Dose: 40 mg Gabapentin (Neurontin) 600 mg PO BID [facility] Last Admin: 05/13/18 08:03 Dose: Not Given Glucagon (Glucagon Inj) 1 mg OTHER PRN PRN PRN Reason: for Hypoglycemia Protocol Hydrochlorothiazide (Hydrodiuril) 25 mg PO DAILY [facility] Last Admin: 05/13/18 08:02 Dose: 25 mg Insulin Aspart (Novolog Insulin Correctional Sugar Inj) 0 unit SQ ACHS AND 3AM [facility]; Protocol Last Admin: 05/13/18 17:34 Dose: Not Given Losartan Potassium (Cozaar) 100 mg PO DAILY [facility] Last Admin: 05/13/18 08:02 Dose: 100 mg Metolazone (Zaroxolyn) 5 mg PO DAILY [facility] Last Admin: 05/13/18 08:04 Dose: Not Given Metoprolol Tartrate (Lopressor) 75 mg PO BID [facility] Last Admin: 05/13/18 08:02 Dose: 75 mg Naloxone HCl (Narcan Inj) 0.4 mg IV.PUSH UNSCH PRN PRN Reason: SEE LABEL COMMENTS Ondansetron HCl (Zofran Inj) 4 mg IV.PUSH Q6H PRN PRN Reason: NAUSEA Last Admin: 05/13/18 16:27 Dose: 4 mg Oxycodone HCl (Roxicodone) 5 mg PO Q4H PRN PRN Reason: PAIN SCALE 3 TO 5 Oxycodone HCl (Roxicodone) 10 mg PO Q4H PRN PRN Reason: PAIN SCALE 6 TO 10 Last Admin: 05/13/18 16:25 Dose: 10 mg Pantoprazole Sodium (Protonix Inj) 40 mg IV.PUSH DAILY [facility] Last Admin: 05/13/18 08:03 Dose: Not Given Polyethylene Glycol/Electrolytes (Colyte Liq) 240 ml PO Q10M [facility] Stop: 05/13/18 22:59 Last Admin: 05/13/18 18:46 Dose: Not Given Sodium Chloride (Ns Flush) 2 ml IV.FLUSH PRN PRN PRN Reason: FLUSH AFTER USING IV ACCESS Sodium Chloride (Ns Flush) 2 ml IV.FLUSH BID [facility] Last Admin: 05/13/18 08:03 Dose: 2 ml <Lee Guardado E - Last Filed: 05/13/18 19:56> Allergies Allergy/AdvReac Type Severity Reaction Status Date / Time adhesive Allergy Severe Rash Verified 05/12/18 19:12 atorvastatin Allergy Severe MUSCLE Verified 05/12/18 19:12 WEAKNESS pravastatin Allergy Severe MUSCLE Verified 05/12/18 19:12 WEAKNESS rosuvastatin Allergy Severe MUSCLE Verified 05/12/18 19:12 WEAKNESS morphine AdvReac Severe BECOMES Verified 05/12/18 19:12 VERY AGGRESSIVE Home Medications Medication Instructions Recorded Confirmed Type amiodarone 200 mg PO DAILY 05/12/18 05/12/18 History amlodipine 5 mg PO DAILY 05/12/18 05/12/18 History apixaban [Eliquis] 5 mg PO BID 05/12/18 05/12/18 History atorvastatin 10 mg PO 05/12/18 History clopidogrel 75 mg PO DAILY 05/12/18 05/12/18 History duloxetine 60 mg PO DAILY 05/12/18 05/12/18 History furosemide 40 mg PO DAILY 05/12/18 05/12/18 History gabapentin 600 mg PO BID 05/12/18 05/12/18 History glimepiride 2 mg PO QAM 05/12/18 05/12/18 History hydrocodone-acetaminophen 1 tab PO Q6H PRN 05/12/18 05/12/18 History insulin NPH isoph U-100 human 75 unit SUB-Q HS 05/12/18 05/12/18 History [Novolin N NPH U-100 Insulin] insulin NPH isoph U-100 human 95 unit SUB-Q AC 05/12/18 05/12/18 History [Novolin N NPH U-100 Insulin] insulin regular human [Novolin R 20 unit SUB-Q QAM 05/12/18 05/12/18 History Regular U-100 Insuln] insulin regular human [Novolin R 50 unit SUB-Q HS 05/12/18 05/12/18 History Regular U-100 Insuln] isosorbide mononitrate 05/12/18 History losartan-hydrochlorothiazide 05/12/18 05/12/18 History metolazone 05/12/18 History metoprolol tartrate 75 mg PO BID 05/12/18 05/12/18 History montelukast 10 mg PO QPM 05/12/18 05/12/18 History pantoprazole 40 mg PO DAILY 05/12/18 05/12/18 History ropinirole 0.5 mg PO TID 05/12/18 05/12/18 History Exam Vital signs: Vital Signs 05/12/18 19:04 05/12/18 19:12 05/12/18 21:32 Temperature 98.1 F 98.1 F Pulse Rate 74 73 68 Respiratory Rate 18 18 Blood Pressure 129/60 129/60 Pulse Oximetry 98 98 05/12/18 23:04 05/12/18 23:19 05/12/18 23:50 Temperature 97.9 F 97.5 F L Pulse Rate 61 63 60 Respiratory Rate 18 18 Blood Pressure 146/67 H 145/60 H 140/68 Pulse Oximetry 95 98 05/13/18 03:05 05/13/18 03:09 05/13/18 04:00 Temperature 97.5 F L 97.5 F L 97.5 F L Pulse Rate 74 68 68 Respiratory Rate 23 18 18 Blood Pressure 138/63 138/63 138/63 Pulse Oximetry 96 96 98 05/13/18 08:00 05/13/18 08:02 05/13/18 10:16 Temperature 97.5 F L Pulse Rate 69 80 82 Respiratory Rate 18 Blood Pressure 157/67 H Pulse Oximetry 95 Intake & Output 05/12/18 05/13/18 05/13/18 18:59 06:59 18:59 Intake Total 900 / 900 0 / 0 Output Total 700 / 700 Balance 200 / 200 0 / 0 Weight 154.9 kg Intake: IV 0 / 0 Oral 0 / 0 Other 500 / 500 Intake (Blood Product) Amt 400 / 400 Rbc As-3 Leukoreduced Unit 400 / 400 [id number] Output: Urine 700 / 700 Other: Other Intake Source Saline Solution Date of Last Bowel Movement 05/12/18 05/12/18 - Constitutional mild distress (Overweight, fair to sometimes poor historian with some of his history and timing.) - Routine HEENT Exam Head: Present: normocephalic ENT: Present: mucous membranes dry - Routine Respiratory Exam Present: accessory muscle use (No obvious shortness of breath) - Routine Cardiovascular Exam Present: S1, S2 - Routine Abdominal Exam Present: soft (Distant large, round, obese, active bowel sounds no obvious abdominal pain to light palpation) - Routine Neurological Exam Present: alert (Awake answering simple questions but poor historian) <Sydnie Dorado - Last Filed: 05/13/18 12:20> Vital signs: Vital Signs 05/12/18 21:32 05/12/18 23:04 05/12/18 23:19 Temperature 97.9 F Pulse Rate 68 61 63 Respiratory Rate 18 Blood Pressure 146/67 H 145/60 H Pulse Oximetry 98 95 05/12/18 23:50 05/13/18 03:05 05/13/18 03:09 Temperature 97.5 F L 97.5 F L 97.5 F L Pulse Rate 60 74 68 Respiratory Rate 18 23 18 Blood Pressure 140/68 138/63 138/63 Pulse Oximetry 98 96 96 05/13/18 04:00 05/13/18 08:00 05/13/18 08:02 Temperature 97.5 F L 97.5 F L Pulse Rate 68 69 80 Respiratory Rate 18 18 Blood Pressure 138/63 157/67 H Pulse Oximetry 98 95 05/13/18 10:16 05/13/18 12:00 05/13/18 12:56 Temperature 97.3 F L Pulse Rate 82 64 Respiratory Rate 18 18 Blood Pressure 122/58 L Pulse Oximetry 95 05/13/18 16:00 05/13/18 16:55 Temperature 97.6 F Pulse Rate 64 Respiratory Rate 18 18 Blood Pressure 129/69 Pulse Oximetry 92 L Intake & Output 05/13/18 05/13/18 05/14/18 06:59 18:59 06:59 Intake Total 900 / 900 0 / 0 Output Total 700 / 700 700 / 700 Balance 200 / 200 -700 / -700 Weight 154.9 kg Intake: IV 0 / 0 Oral 0 / 0 Other 500 / 500 Intake (Blood Product) Amt 400 / 400 Rbc As-3 Leukoreduced Unit 400 / 400 [id number] Output: Urine 700 / 700 700 / 700 Other: Other Intake Source Saline Solution Date of Last Bowel Movement 05/12/18 05/12/18 <Lee Guardado - Last Filed: 05/13/18 19:56> Results - Labs CBC & Chem 7: 05/12/18 23:00 05/12/18 23:00 Labs: Laboratory Results - last 24 hr 05/12/18 05/12/18 05/12/18 19:15 19:15 19:15 WBC RBC Hgb Hct MCV MCH MCHC RDW Plt Count MPV Prelim Diff (Auto) Neut % (Auto) Lymph % (Auto) [place] % (Auto) Eos % (Auto) Baso % (Auto) Neut # (Auto) Lymph # (Auto) [place] # (Auto) Eos # (Auto) Baso # (Auto) WBC Differential Seg Neuts % (Manual) Band Neuts % (Manual) Lymphocytes % (Manual) Monocytes % (Manual) Metamyelocytes % (Man) Myelocytes % (Man) Abs Neuts (Manual) Differential Comment Platelet Estimate Platelet Morphology PT 10.0 INR 1.0 APTT 18.8 L Sodium 135 L Potassium 4.3 Chloride 98 Carbon Dioxide 24.0 Anion Gap 13 BUN 29 H Creatinine 1.41 H Estimated GFR 50 L POC Glucose Random Glucose 340 H Lactic Acid Calcium 8.7 Magnesium 2.1 Total Bilirubin 0.3 AST 30 ALT 89 H Alkaline Phosphatase 76 Total Creatine Kinase 57 Troponin I Less than 0.02 L B-Natriuretic Peptide 194 H Total Protein 6.2 L Albumin 3.1 L Urine Color Urine Clarity Urine pH Ur Specific Kimberly Urine Protein Urine Glucose (UA) Urine Ketones Urine Occult Blood Urine Nitrate Urine Bilirubin Urine Urobilinogen Ur Leukocyte Esterase Urine WBC Urine Mucus Micro UA Comment Urine Culture Comments Blood Type Antibody Screen MTS Gel Crossmatch 05/12/18 05/12/18 05/12/18 19:15 19:15 19:15 WBC 18.9 H RBC 3.53 L Hgb 7.8 L Hct 25.0 L MCV 70.9 L MCH 22.1 L MCHC 31.1 L RDW 17.8 H Plt Count 419 MPV 6.9 L Prelim Diff (Auto) Slide review pending Neut % (Auto) 81.4 H Lymph % (Auto) 10.5 [place] % (Auto) 7.3 Eos % (Auto) 0.1 Baso % (Auto) 0.7 Neut # (Auto) 15.3 H Lymph # (Auto) 2.0 [place] # (Auto) 1.4 H Eos # (Auto) 0.0 Baso # (Auto) 0.1 WBC Differential Manual diff final Seg Neuts % (Manual) 77 H Band Neuts % (Manual) 4 Lymphocytes % (Manual) 12 Monocytes % (Manual) 5 Metamyelocytes % (Man) 1 Myelocytes % (Man) 1 H Abs Neuts (Manual) 15.7 H Differential Comment . Platelet Estimate Normal Platelet Morphology Normal PT INR APTT Sodium Potassium Chloride Carbon Dioxide Anion Gap BUN Creatinine Estimated GFR POC Glucose Random Glucose Lactic Acid Calcium Magnesium Total Bilirubin AST ALT Alkaline Phosphatase Total Creatine Kinase Cancelled Troponin I Cancelled B-Natriuretic Peptide Total Protein Albumin Urine Color Urine Clarity Urine pH Ur Specific Kimberly Urine Protein Urine Glucose (UA) Urine Ketones Urine Occult Blood Urine Nitrate Urine Bilirubin Urine Urobilinogen Ur Leukocyte Esterase Urine WBC Urine Mucus Micro UA Comment Urine Culture Comments Blood Type Antibody Screen MTS Gel Crossmatch 05/12/18 05/12/18 05/12/18 20:28 20:44 20:44 WBC RBC Hgb Hct MCV MCH MCHC RDW Plt Count MPV Prelim Diff (Auto) Neut % (Auto) Lymph % (Auto) [place] % (Auto) Eos % (Auto) Baso % (Auto) Neut # (Auto) Lymph # (Auto) [place] # (Auto) Eos # (Auto) Baso # (Auto) WBC Differential Seg Neuts % (Manual) Band Neuts % (Manual) Lymphocytes % (Manual) Monocytes % (Manual) Metamyelocytes % (Man) Myelocytes % (Man) Abs Neuts (Manual) Differential Comment Platelet Estimate Platelet Morphology PT INR APTT Sodium Potassium Chloride Carbon Dioxide Anion Gap BUN Creatinine Estimated GFR POC Glucose Random Glucose Lactic Acid Calcium Magnesium Total Bilirubin AST ALT Alkaline Phosphatase Total Creatine Kinase Troponin I B-Natriuretic Peptide Total Protein Albumin Urine Color Straw Urine Clarity Clear Urine pH 6.0 Ur Specific Kimber[place] 1.007 Urine Protein Negative Urine Glucose (UA) 500 or greater Urine Ketones Negative Urine Occult Blood Negative Urine Nitrate Negative Urine Bilirubin Negative Urine Urobilinogen Less than 2 Ur Leukocyte Esterase Negative Urine WBC Less than 1 Urine Mucus Few H Micro UA Comment Culture not ind Urine Culture Comments Culture not ind Blood Type B Positive Antibody Screen Negative MTS Gel Crossmatch See Detail 05/12/18 05/12/18 05/12/18 20:54 22:43 23:00 WBC 19.3 H RBC 3.62 L Hgb 7.4 L Hct 25.5 L MCV 70.4 L MCH 20.4 L MCHC 29.0 L RDW 17.5 H Plt Count 432 MPV 6.8 L Prelim Diff (Auto) Neut % (Auto) 71.9 H Lymph % (Auto) 16.4 [place] % (Auto) 10.6 H Eos % (Auto) 0.2 Baso % (Auto) 0.9 Neut # (Auto) 13.9 H Lymph # (Auto) 3.2 [place] # (Auto) 2.0 H Eos # (Auto) 0.0 Baso # (Auto) 0.2 WBC Differential . Seg Neuts % (Manual) Band Neuts % (Manual) Lymphocytes % (Manual) Monocytes % (Manual) Metamyelocytes % (Man) Myelocytes % (Man) Abs Neuts (Manual) Differential Comment Auto diff final Platelet Estimate Platelet Morphology PT INR APTT Sodium Potassium Chloride Carbon Dioxide Anion Gap BUN Creatinine Estimated GFR POC Glucose Random Glucose Lactic Acid 2.7 H 1.8 Calcium Magnesium Total Bilirubin AST ALT Alkaline Phosphatase Total Creatine Kinase Troponin I B-Natriuretic Peptide Total Protein Albumin Urine Color Urine Clarity Urine pH Ur Specific Kimberly Urine Protein Urine Glucose (UA) Urine Ketones Urine Occult Blood Urine Nitrate Urine Bilirubin Urine Urobilinogen Ur Leukocyte Esterase Urine WBC Urine Mucus Micro UA Comment Urine Culture Comments Blood Type Antibody Screen MTS Gel Crossmatch 05/12/18 05/13/18 05/13/18 23:00 03:53 07:45 WBC RBC Hgb Hct MCV MCH MCHC RDW Plt Count MPV Prelim Diff (Auto) Neut % (Auto) Lymph % (Auto) [place] % (Auto) Eos % (Auto) Baso % (Auto) Neut # (Auto) Lymph # (Auto) [place] # (Auto) Eos # (Auto) Baso # (Auto) WBC Differential Seg Neuts % (Manual) Band Neuts % (Manual) Lymphocytes % (Manual) Monocytes % (Manual) Metamyelocytes % (Man) Myelocytes % (Man) Abs Neuts (Manual) Differential Comment Platelet Estimate Platelet Morphology PT INR APTT Sodium 138 Potassium 3.6 Chloride 101 Carbon Dioxide 30.6 Anion Gap 6 BUN 28 H Creatinine 1.26 Estimated GFR 57 L POC Glucose 181 H 152 H Random Glucose 210 H D Lactic Acid Calcium 8.2 L Magnesium Total Bilirubin AST ALT Alkaline Phosphatase Total Creatine Kinase Troponin I B-Natriuretic Peptide Total Protein Albumin Urine Color Urine Clarity Urine pH Ur Specific [place] Urine Protein Urine Glucose (UA) Urine Ketones Urine Occult Blood Urine Nitrate Urine Bilirubin Urine Urobilinogen Ur Leukocyte Esterase Urine WBC Urine Mucus Micro UA Comment Urine Culture Comments Blood Type Antibody Screen MTS Gel Crossmatch - Imaging Impressions Cervical Spine CT 05/12/18 19:09 CONCLUSION: 1. Advanced discogenic and facet joint degenerative changes most prominent at the C6-7 interspace and the left lateral mass of C2-3. 2. No evidence of fracture or spondylolisthesis. Chest X-Ray 05/12/18 19:09 CONCLUSION: Cardiomegaly. No infiltrates seen. Forearm X-Ray 05/12/18 19:09 CONCLUSION: No evidence of recent bony injury. Forearm X-Ray 05/12/18 19:09 CONCLUSION: No evidence of recent bony injury. Hand X-Ray 05/12/18 19:09 CONCLUSION: No evidence of recent bony injury. No significant arthropathy. Head CT 05/12/18 19:09 CONCLUSION: 1. No acute findings in the brain. . Humerus X-Ray 05/12/18 19:09 CONCLUSION: Negative examination Humerus X-Ray 05/12/18 19:09 CONCLUSION: No evidence of recent bony injury. Carotid Doppler Study 05/13/18 00:00 CONCLUSION: 1. Right Internal Carotid Artery: Findings indicate <50% stenosis. 2. Left Internal Carotid Artery: Findings indicate <50% stenosis. <Sydnie Dorado - Last Filed: 05/13/18 12:20> - Labs CBC & Chem 7: 05/13/18 13:23 05/12/18 23:00 Labs: Laboratory Results - last 24 hr 05/12/18 05/12/18 05/12/18 19:08 19:15 19:15 WBC RBC Hgb Hct MCV MCH MCHC RDW Plt Count MPV Neut % (Auto) Lymph % (Auto) [place] % (Auto) Eos % (Auto) Baso % (Auto) Neut # (Auto) Lymph # (Auto) [place] # (Auto) Eos # (Auto) Baso # (Auto) WBC Differential Manual diff final Seg Neuts % (Manual) 77 H Band Neuts % (Manual) 4 Lymphocytes % (Manual) 12 Monocytes % (Manual) 5 Metamyelocytes % (Man) 1 Myelocytes % (Man) 1 H Abs Neuts (Manual) 15.7 H Differential Comment Platelet Estimate Normal Platelet Morphology Normal Sodium Potassium Chloride Carbon Dioxide Anion Gap BUN Creatinine Estimated GFR POC Glucose 399 H Random Glucose Lactic Acid Calcium B-Natriuretic Peptide 194 H Urine Color Urine Clarity Urine pH Ur Specific [place] Urine Protein Urine Glucose (UA) Urine Ketones Urine Occult Blood Urine Nitrate Urine Bilirubin Urine Urobilinogen Ur Leukocyte Esterase Urine WBC Urine Mucus Micro UA Comment Urine Culture Comments Blood Type Antibody Screen MTS Gel Crossmatch 05/12/18 05/12/18 05/12/18 20:28 20:44 20:44 WBC RBC Hgb Hct MCV MCH MCHC RDW Plt Count MPV Neut % (Auto) Lymph % (Auto) [place] % (Auto) Eos % (Auto) Baso % (Auto) Neut # (Auto) Lymph # (Auto) [place] # (Auto) Eos # (Auto) Baso # (Auto) WBC Differential Seg Neuts % (Manual) Band Neuts % (Manual) Lymphocytes % (Manual) Monocytes % (Manual) Metamyelocytes % (Man) Myelocytes % (Man) Abs Neuts (Manual) Differential Comment Platelet Estimate Platelet Morphology Sodium Potassium Chloride Carbon Dioxide Anion Gap BUN Creatinine Estimated GFR POC Glucose Random Glucose Lactic Acid Calcium B-Natriuretic Peptide Urine Color Straw Urine Clarity Clear Urine pH 6.0 Ur Specific [place] 1.007 Urine Protein Negative Urine Glucose (UA) 500 or greater Urine Ketones Negative Urine Occult Blood Negative Urine Nitrate Negative Urine Bilirubin Negative Urine Urobilinogen Less than 2 Ur Leukocyte Esterase Negative Urine WBC Less than 1 Urine Mucus Few H Micro UA Comment Culture not ind Urine Culture Comments Culture not ind Blood Type B Positive Antibody Screen Negative MTS Gel Crossmatch See Detail 05/12/18 05/12/18 05/12/18 20:54 22:43 23:00 WBC 19.3 H RBC 3.62 L Hgb 7.4 L Hct 25.5 L MCV 70.4 L MCH 20.4 L MCHC 29.0 L RDW 17.5 H Plt Count 432 MPV 6.8 L Neut % (Auto) 71.9 H Lymph % (Auto) 16.4 [place] % (Auto) 10.6 H Eos % (Auto) 0.2 Baso % (Auto) 0.9 Neut # (Auto) 13.9 H Lymph # (Auto) 3.2 [place] # (Auto) 2.0 H Eos # (Auto) 0.0 Baso # (Auto) 0.2 WBC Differential . Seg Neuts % (Manual) Band Neuts % (Manual) Lymphocytes % (Manual) Monocytes % (Manual) Metamyelocytes % (Man) Myelocytes % (Man) Abs Neuts (Manual) Differential Comment Auto diff final Platelet Estimate Platelet Morphology Sodium Potassium Chloride Carbon Dioxide Anion Gap BUN Creatinine Estimated GFR POC Glucose Random Glucose Lactic Acid 2.7 H 1.8 Calcium B-Natriuretic Peptide Urine Color Urine Clarity Urine pH Ur Specific [place] Urine Protein Urine Glucose (UA) Urine Ketones Urine Occult Blood Urine Nitrate Urine Bilirubin Urine Urobilinogen Ur Leukocyte Esterase Urine WBC Urine Mucus Micro UA Comment Urine Culture Comments Blood Type Antibody Screen MTS Gel Crossmatch 05/12/18 05/13/18 05/13/18 23:00 03:53 07:45 WBC RBC Hgb Hct MCV MCH MCHC RDW Plt Count MPV Neut % (Auto) Lymph % (Auto) [place] % (Auto) Eos % (Auto) Baso % (Auto) Neut # (Auto) Lymph # (Auto) [place] # (Auto) Eos # (Auto) Baso # (Auto) WBC Differential Seg Neuts % (Manual) Band Neuts % (Manual) Lymphocytes % (Manual) Monocytes % (Manual) Metamyelocytes % (Man) Myelocytes % (Man) Abs Neuts (Manual) Differential Comment Platelet Estimate Platelet Morphology Sodium 138 Potassium 3.6 Chloride 101 Carbon Dioxide 30.6 Anion Gap 6 BUN 28 H Creatinine 1.26 Estimated GFR 57 L POC Glucose 181 H 152 H Random Glucose 210 H D Lactic Acid Calcium 8.2 L B-Natriuretic Peptide Urine Color Urine Clarity Urine pH Ur Specific [place] Urine Protein Urine Glucose (UA) Urine Ketones Urine Occult Blood Urine Nitrate Urine Bilirubin Urine Urobilinogen Ur Leukocyte Esterase Urine WBC Urine Mucus Micro UA Comment Urine Culture Comments Blood Type Antibody Screen MTS Gel Crossmatch 05/13/18 05/13/18 05/13/18 12:15 13:23 17:00 WBC RBC Hgb 8.9 L Hct 28.2 L MCV MCH MCHC RDW Plt Count MPV Neut % (Auto) Lymph % (Auto) [place] % (Auto) Eos % (Auto) Baso % (Auto) Neut # (Auto) Lymph # (Auto) [place] # (Auto) Eos # (Auto) Baso # (Auto) WBC Differential Seg Neuts % (Manual) Band Neuts % (Manual) Lymphocytes % (Manual) Monocytes % (Manual) Metamyelocytes % (Man) Myelocytes % (Man) Abs Neuts (Manual) Differential Comment Platelet Estimate Platelet Morphology Sodium Potassium Chloride Carbon Dioxide Anion Gap BUN Creatinine Estimated GFR POC Glucose 144 H 147 H Random Glucose Lactic Acid Calcium B-Natriuretic Peptide Urine Color Urine Clarity Urine pH Ur Specific [place] Urine Protein Urine Glucose (UA) Urine Ketones Urine Occult Blood Urine Nitrate Urine Bilirubin Urine Urobilinogen Ur Leukocyte Esterase Urine WBC Urine Mucus Micro UA Comment Urine Culture Comments Blood Type Antibody Screen MTS Gel Crossmatch - Imaging Impressions Cervical Spine CT 05/12/18 19:09 CONCLUSION: 1. Advanced discogenic and facet joint degenerative changes most prominent at the C6-7 interspace and the left lateral mass of C2-3. 2. No evidence of fracture or spondylolisthesis. Chest X-Ray 05/12/18 19:09 CONCLUSION: Cardiomegaly. No infiltrates seen. Forearm X-Ray 05/12/18 19:09 CONCLUSION: No evidence of recent bony injury. Forearm X-Ray 05/12/18 19:09 CONCLUSION: No evidence of recent bony injury. Hand X-Ray 05/12/18 19:09 CONCLUSION: No evidence of recent bony injury. No significant arthropathy. Head CT 05/12/18 19:09 CONCLUSION: 1. No acute findings in the brain. . Humerus X-Ray 05/12/18 19:09 CONCLUSION: Negative examination Humerus X-Ray 05/12/18 19:09 CONCLUSION: No evidence of recent bony injury. Carotid Doppler Study 05/13/18 00:00 CONCLUSION: 1. Right Internal Carotid Artery: Findings indicate <50% stenosis. 2. Left Internal Carotid Artery: Findings indicate <50% stenosis. <Lee Guardado E - Last Filed: 05/13/18 19:56> Assessment and Plan (1) GI bleed Status: Acute Code(s): K92.2 - Gastrointestinal hemorrhage, unspecified (2) Anemia Status: Acute Code(s): D64.9 - Anemia, unspecified - Plan 67-year-old overweight male comes into the hospital on 05/12/2018 with symptomatic anemia, melena stools, GI bleed, and falls, syncopal episodes 3 at home over the past week. Current symptoms have been going on off and on for 2 weeks, aggregating symptoms are probably related to Eliquis and Plavix dual anticoagulation for his atrial fib. According to the record patient had positive Hemoccult in the ER setting. Hemoglobin on admission was 7.8 and decreased to 7.4. Patient received 1 unit packed RBCs, PT/INR 1. EGD colonoscopy approximately [address] Harper possible history of polyps and patient notes previous colon resection but unknown timing. Patient denies history of colon cancer but states polyp removed? Eliquis and Plavix are on hold for 05/13/2018. Gastroenterology has been consulted to assist with his care and evaluate his symptoms. EGD colonoscopy has been discussed with patient. When entered the room patient had been given GoLYTELY per hospitalist on admission to drink throughout the evening but patient denies any bowel movement he has drank approximately 60% of the GoLYTELY, but states he will not drink anymore. Plan Clear liquids today P.o. at midnight except for medications needed Consent for EGD colonoscopy in a.m. Continue to hold blood thinners Mag citrate 2 bottles Monitor labs and transfuse as necessary Further recommendations to follow Patient was seen per myself and Dr. Guardado, note was written on his behalf <Sydnie Dorado M - Last Filed: 05/13/18 12:20> (1) GI bleed Status: Acute Code(s): K92.2 - Gastrointestinal hemorrhage, unspecified (2) Anemia Status: Acute Code(s): D64.9 - Anemia, unspecified - Attending Attestation Patient seen and examined Agree with above Continue with current supportive care Monitor labs Plan on EGD with colonoscopy tomorrow Case discussed with cardiology patient will need to continue on antiplatelet agents due to the fact that he had recent coronary artery stents <Lee Guardado - Last Filed: 05/13/18 19:56> <Sydnie Dorado - Last Filed: 05/13/18 12:20> (1) GI bleed Qualifiers: GI bleed type/associated pathology: unspecified gastrointestinal hemorrhage type Qualified Code(s): K92.2 - Gastrointestinal hemorrhage, unspecified (2) Anemia Qualifiers: Anemia type: unspecified type Qualified Code(s): D64.9 - Anemia, unspecified <Lee Guardado - Last Filed: 05/13/18 19:56> (1) GI bleed Qualifiers: GI bleed type/associated pathology: unspecified gastrointestinal hemorrhage type Qualified Code(s): K92.2 - Gastrointestinal hemorrhage, unspecified (2) Anemia Qualifiers: Anemia type: unspecified type Qualified Code(s): D64.9 - Anemia, unspecified
[2018-05-13 13:48] LABS: Hematocrit 28.2 % (39.0-51.0); Hemoglobin 8.9 gm/dL (13.0-17.0)
--- NOTE | 2018-05-13 15:51 | P.PNIM ---
Subjective Interval history: Patient says that weakness and lightheadedness has improved. He would like to consult his reservations agent. Physical Exam Vital signs: Vital Signs 05/12/18 19:04 05/12/18 19:12 05/12/18 21:32 Temperature 98.1 F 98.1 F Pulse Rate 74 73 68 Respiratory Rate 18 18 Blood Pressure 129/60 129/60 Pulse Oximetry 98 98 05/12/18 23:04 05/12/18 23:19 05/12/18 23:50 Temperature 97.9 F 97.5 F L Pulse Rate 61 63 60 Respiratory Rate 18 18 Blood Pressure 146/67 H 145/60 H 140/68 Pulse Oximetry 95 98 05/13/18 03:05 05/13/18 03:09 05/13/18 04:00 Temperature 97.5 F L 97.5 F L 97.5 F L Pulse Rate 74 68 68 Respiratory Rate 23 18 18 Blood Pressure 138/63 138/63 138/63 Pulse Oximetry 96 96 98 05/13/18 08:00 05/13/18 08:02 05/13/18 10:16 Temperature 97.5 F L Pulse Rate 69 80 82 Respiratory Rate 18 Blood Pressure 157/67 H Pulse Oximetry 95 05/13/18 12:00 05/13/18 12:56 Temperature 97.3 F L Pulse Rate 64 Respiratory Rate 18 18 Blood Pressure 122/58 L Pulse Oximetry 95 Intake & Output 05/12/18 05/13/18 05/13/18 18:59 06:59 18:59 Intake Total 900 / 900 0 / 0 Output Total 700 / 700 700 / 700 Balance 200 / 200 -700 / -700 Weight 154.9 kg Intake: IV 0 / 0 Oral 0 / 0 Other 500 / 500 Intake (Blood Product) Amt 400 / 400 Rbc As-3 Leukoreduced Unit 400 / 400 [id number] Output: Urine 700 / 700 700 / 700 Other: Other Intake Source Saline Solution Date of Last Bowel Movement 05/12/18 05/12/18 Narrative: GENERAL: Bed. Appears comfortable. SKIN: Warm and dry. HEAD: Normocephalic. EYES: No scleral icterus. No injection or drainage. NECK: Supple, trachea midline. No JVD. CARDIOVASCULAR: Regular rate and rhythm without murmurs, gallops, or rubs. RESPIRATORY: Breath sounds equal bilaterally. No accessory muscle use. GASTROINTESTINAL: Abdomen soft, non-tender, nondistended. MUSCULOSKELETAL: No cyanosis, or edema. BACK: Nontender without obvious deformity. No CVA tenderness. Results - Labs CBC & Chem 7: 05/13/18 13:23 05/12/18 23:00 Laboratory Results - last 24 hr 05/12/18 05/12/18 05/12/18 19:08 19:15 19:15 WBC RBC Hgb Hct MCV MCH MCHC RDW Plt Count MPV Prelim Diff (Auto) Neut % (Auto) Lymph % (Auto) [place] % (Auto) Eos % (Auto) Baso % (Auto) Neut # (Auto) Lymph # (Auto) [place] # (Auto) Eos # (Auto) Baso # (Auto) WBC Differential Seg Neuts % (Manual) Band Neuts % (Manual) Lymphocytes % (Manual) Monocytes % (Manual) Metamyelocytes % (Man) Myelocytes % (Man) Abs Neuts (Manual) Differential Comment Platelet Estimate Platelet Morphology PT 10.0 INR 1.0 APTT 18.8 L Sodium 135 L Potassium 4.3 Chloride 98 Carbon Dioxide 24.0 Anion Gap 13 BUN 29 H Creatinine 1.41 H Estimated GFR 50 L POC Glucose 399 H Random Glucose 340 H Lactic Acid Calcium 8.7 Magnesium 2.1 Total Bilirubin 0.3 AST 30 ALT 89 H Alkaline Phosphatase 76 Total Creatine Kinase 57 Troponin I Less than 0.02 L B-Natriuretic Peptide Total Protein 6.2 L Albumin 3.1 L Urine Color Urine Clarity Urine pH Ur Specific [place] Urine Protein Urine Glucose (UA) Urine Ketones Urine Occult Blood Urine Nitrate Urine Bilirubin Urine Urobilinogen Ur Leukocyte Esterase Urine WBC Urine Mucus Micro UA Comment Urine Culture Comments Blood Type Antibody Screen MTS Gel Crossmatch 05/12/18 05/12/18 05/12/18 19:15 19:15 19:15 WBC 18.9 H RBC 3.53 L Hgb 7.8 L Hct 25.0 L MCV 70.9 L MCH 22.1 L MCHC 31.1 L RDW 17.8 H Plt Count 419 MPV 6.9 L Prelim Diff (Auto) Slide review pending Neut % (Auto) 81.4 H Lymph % (Auto) 10.5 [place] % (Auto) 7.3 Eos % (Auto) 0.1 Baso % (Auto) 0.7 Neut # (Auto) 15.3 H Lymph # (Auto) 2.0 [place] # (Auto) 1.4 H Eos # (Auto) 0.0 Baso # (Auto) 0.1 WBC Differential Manual diff final Seg Neuts % (Manual) 77 H Band Neuts % (Manual) 4 Lymphocytes % (Manual) 12 Monocytes % (Manual) 5 Metamyelocytes % (Man) 1 Myelocytes % (Man) 1 H Abs Neuts (Manual) 15.7 H Differential Comment . Platelet Estimate Normal Platelet Morphology Normal PT INR APTT Sodium Potassium Chloride Carbon Dioxide Anion Gap BUN Creatinine Estimated GFR POC Glucose Random Glucose Lactic Acid Calcium Magnesium Total Bilirubin AST ALT Alkaline Phosphatase Total Creatine Kinase Troponin I Cancelled B-Natriuretic Peptide 194 H Total Protein Albumin Urine Color Urine Clarity Urine pH Ur Specific [place] Urine Protein Urine Glucose (UA) Urine Ketones Urine Occult Blood Urine Nitrate Urine Bilirubin Urine Urobilinogen Ur Leukocyte Esterase Urine WBC Urine Mucus Micro UA Comment Urine Culture Comments Blood Type Antibody Screen MTS Gel Crossmatch 05/12/18 05/12/18 05/12/18 19:15 20:28 20:44 WBC RBC Hgb Hct MCV MCH MCHC RDW Plt Count MPV Prelim Diff (Auto) Neut % (Auto) Lymph % (Auto) [place] % (Auto) Eos % (Auto) Baso % (Auto) Neut # (Auto) Lymph # (Auto) [place] # (Auto) Eos # (Auto) Baso # (Auto) WBC Differential Seg Neuts % (Manual) Band Neuts % (Manual) Lymphocytes % (Manual) Monocytes % (Manual) Metamyelocytes % (Man) Myelocytes % (Man) Abs Neuts (Manual) Differential Comment Platelet Estimate Platelet Morphology PT INR APTT Sodium Potassium Chloride Carbon Dioxide Anion Gap BUN Creatinine Estimated GFR POC Glucose Random Glucose Lactic Acid Calcium Magnesium Total Bilirubin AST ALT Alkaline Phosphatase Total Creatine Kinase Cancelled Troponin I B-Natriuretic Peptide Total Protein Albumin Urine Color Straw Urine Clarity Clear Urine pH 6.0 Ur Specific [place] 1.007 Urine Protein Negative Urine Glucose (UA) 500 or greater Urine Ketones Negative Urine Occult Blood Negative Urine Nitrate Negative Urine Bilirubin Negative Urine Urobilinogen Less than 2 Ur Leukocyte Esterase Negative Urine WBC Less than 1 Urine Mucus Few H Micro UA Comment Culture not ind Urine Culture Comments Culture not ind Blood Type B Positive Antibody Screen Negative MTS Gel Crossmatch 05/12/18 05/12/18 05/12/18 20:44 20:54 22:43 WBC RBC Hgb Hct MCV MCH MCHC RDW Plt Count MPV Prelim Diff (Auto) Neut % (Auto) Lymph % (Auto) [place] % (Auto) Eos % (Auto) Baso % (Auto) Neut # (Auto) Lymph # (Auto) [place] # (Auto) Eos # (Auto) Baso # (Auto) WBC Differential Seg Neuts % (Manual) Band Neuts % (Manual) Lymphocytes % (Manual) Monocytes % (Manual) Metamyelocytes % (Man) Myelocytes % (Man) Abs Neuts (Manual) Differential Comment Platelet Estimate Platelet Morphology PT INR APTT Sodium Potassium Chloride Carbon Dioxide Anion Gap BUN Creatinine Estimated GFR POC Glucose Random Glucose Lactic Acid 2.7 H 1.8 Calcium Magnesium Total Bilirubin AST ALT Alkaline Phosphatase Total Creatine Kinase Troponin I B-Natriuretic Peptide Total Protein Albumin Urine Color Urine Clarity Urine pH Ur Specific [place] Urine Protein Urine Glucose (UA) Urine Ketones Urine Occult Blood Urine Nitrate Urine Bilirubin Urine Urobilinogen Ur Leukocyte Esterase Urine WBC Urine Mucus Micro UA Comment Urine Culture Comments Blood Type Antibody Screen MTS Gel Crossmatch See Detail 05/12/18 05/12/18 05/13/18 23:00 23:00 03:53 WBC 19.3 H RBC 3.62 L Hgb 7.4 L Hct 25.5 L MCV 70.4 L MCH 20.4 L MCHC 29.0 L RDW 17.5 H Plt Count 432 MPV 6.8 L Prelim Diff (Auto) Neut % (Auto) 71.9 H Lymph % (Auto) 16.4 [place] % (Auto) 10.6 H Eos % (Auto) 0.2 Baso % (Auto) 0.9 Neut # (Auto) 13.9 H Lymph # (Auto) 3.2 [place] # (Auto) 2.0 H Eos # (Auto) 0.0 Baso # (Auto) 0.2 WBC Differential . Seg Neuts % (Manual) Band Neuts % (Manual) Lymphocytes % (Manual) Monocytes % (Manual) Metamyelocytes % (Man) Myelocytes % (Man) Abs Neuts (Manual) Differential Comment Auto diff final Platelet Estimate Platelet Morphology PT INR APTT Sodium 138 Potassium 3.6 Chloride 101 Carbon Dioxide 30.6 Anion Gap 6 BUN 28 H Creatinine 1.26 Estimated GFR 57 L POC Glucose 181 H Random Glucose 210 H D Lactic Acid Calcium 8.2 L Magnesium Total Bilirubin AST ALT Alkaline Phosphatase Total Creatine Kinase Troponin I B-Natriuretic Peptide Total Protein Albumin Urine Color Urine Clarity Urine pH Ur Specific [place] Urine Protein Urine Glucose (UA) Urine Ketones Urine Occult Blood Urine Nitrate Urine Bilirubin Urine Urobilinogen Ur Leukocyte Esterase Urine WBC Urine Mucus Micro UA Comment Urine Culture Comments Blood Type Antibody Screen MTS Gel Crossmatch 05/13/18 05/13/18 05/13/18 07:45 12:15 13:23 WBC RBC Hgb 8.9 L Hct 28.2 L MCV MCH MCHC RDW Plt Count MPV Prelim Diff (Auto) Neut % (Auto) Lymph % (Auto) [place] % (Auto) Eos % (Auto) Baso % (Auto) Neut # (Auto) Lymph # (Auto) [place] # (Auto) Eos # (Auto) Baso # (Auto) WBC Differential Seg Neuts % (Manual) Band Neuts % (Manual) Lymphocytes % (Manual) Monocytes % (Manual) Metamyelocytes % (Man) Myelocytes % (Man) Abs Neuts (Manual) Differential Comment Platelet Estimate Platelet Morphology PT INR APTT Sodium Potassium Chloride Carbon Dioxide Anion Gap BUN Creatinine Estimated GFR POC Glucose 152 H 144 H Random Glucose Lactic Acid Calcium Magnesium Total Bilirubin AST ALT Alkaline Phosphatase Total Creatine Kinase Troponin I B-Natriuretic Peptide Total Protein Albumin Urine Color Urine Clarity Urine pH Ur Specific [place] Urine Protein Urine Glucose (UA) Urine Ketones Urine Occult Blood Urine Nitrate Urine Bilirubin Urine Urobilinogen Ur Leukocyte Esterase Urine WBC Urine Mucus Micro UA Comment Urine Culture Comments Blood Type Antibody Screen MTS Gel Crossmatch Microbiology 05/12/18 20:54 Blood - Peripheral Aerobic Blood Culture - Preliminary No growth in 1 day 05/12/18 20:54 Blood - Peripheral Anaerobic Blood Culture - Preliminary No growth in 1 day 05/12/18 20:45 Blood - Peripheral Aerobic Blood Culture - Preliminary No growth in 1 day 05/12/18 20:45 Blood - Peripheral Anaerobic Blood Culture - Preliminary No growth in 1 day - Imaging Impressions Cervical Spine CT 05/12/18 19:09 CONCLUSION: 1. Advanced discogenic and facet joint degenerative changes most prominent at the C6-7 interspace and the left lateral mass of C2-3. 2. No evidence of fracture or spondylolisthesis. Chest X-Ray 05/12/18 19:09 CONCLUSION: Cardiomegaly. No infiltrates seen. Forearm X-Ray 05/12/18 19:09 CONCLUSION: No evidence of recent bony injury. Forearm X-Ray 05/12/18 19:09 CONCLUSION: No evidence of recent bony injury. Hand X-Ray 05/12/18 19:09 CONCLUSION: No evidence of recent bony injury. No significant arthropathy. Head CT 05/12/18 19:09 CONCLUSION: 1. No acute findings in the brain. . Humerus X-Ray 05/12/18 19:09 CONCLUSION: Negative examination Humerus X-Ray 05/12/18 19:09 CONCLUSION: No evidence of recent bony injury. Carotid Doppler Study 05/13/18 00:00 CONCLUSION: 1. Right Internal Carotid Artery: Findings indicate <50% stenosis. 2. Left Internal Carotid Artery: Findings indicate <50% stenosis. Assessment and Plan - Plan //Symptomatic anemia/syncope/lower GI bleed H&H 7.8/25.0 Hemoccult positive ED with history of black, tarry stools N.p.o. IV Protonix Gastroenterology consulted, appreciate recommendations GoLYTELY Echo/carotid ultrasound to evaluate for other etiologies of syncope Transfuse 2 units packed red blood cells Monitor CBC = 05/13. Hemoglobin improved 8.9. Continue to monitor. Continue to hold blood thinners. //Syncope. Patient follows with cardiology. Will consult reservations agent as per patient request. //Hyperglycemia/diabetes mellitus Sugar 340 however patient just completed p.o. steroids Sliding-scale insulin Monitor blood glucose //Atrial fibrillation Continue amiodarone/metoprolol Holding home Eliquis secondary to GI bleed //CHF/CAD Status post MA Holding Plavix secondary to GI bleed Continue home medications //Sleep apnea. will bring home CPAP. FEN N.p.o. Electrolytes: Monitor and replete as needed Holding pharmacologic anticoagulation secondary to GI bleed Discharge Planning: Pending GI clearance.
--- NOTE | 2018-05-13 15:52 | P.DCO ---
- Physical Therapy Order: Evaluate and treat - Home Health Nursing Order: Signs/symptoms of disease process, Nursing assessment with vital signs - Emergency Care Attendant Order: To provide: Long range planning - Certification I have seen patient Irineo Fay on 05/13/18. My clinical findings support the need for the requested home health care services because: Limited ability to care for self I certify that my clinical findings support that this patient is homebound because: Unsafe to leave home unassisted
[2018-05-13] MEDS ORDERED: Magnesium Citrate Liq 300 ML Bottle PO ONE ×2 (16:00→18:00)
--- NOTE | 2018-05-13 18:24 | P.CONCA ---
<Yue Cao R - Last Filed: 05/13/18 21:00> History of Present Illness Service: Cardiology Consult date: 05/13/18 Reason for Consult: syncope Primary Care Provider: Frederick Jean Chief Complaint: syncope, sob History of Present Illness: Mr. Fay is a 67 year old known to Dr. Ellsworth. He has a history of CAD with stenting of the RCA in December, paroxysmal atrial fibrillation anticoagulated with eliquis, hypertension, hyperlipidemia, DM, COPD. He presented yesterday with complaints of syncope while attempting to go to the bathroom. He became dizzy, passed out hitting his head and extremities on the shower. He does report two prior syncopal episodes last week. He did not seek medical attention at that time. He reports two week history of dark, tarry stools. [place] that was due to recent diet change as he has been eating a lot of salads to try to lose weight. He reports recent admission to [facility] for COPD exacerbation. Has been treated with levaquin and steroids at home. Work up in the ED found patient to be anemic with Hgb 7.4. Stool with positive hemocult. Troponin negative. BNP 194. CT head was negative. CXR - cardiomegaly. No infiltrates. Other xrays were negative for fractures. He has been transfused with one unit PRBCs and is feeling better, Hgb 8.9. His eliquis and plavix were placed on hold due to GIB. However, he needs the plavix due to recent stenting of his RCA. He is scheduled for colonoscopy tomorrow. He is currently resting in bed without distress. Has complaints of pain left shoulder, hip, hands from fall. Denies chest pain, sob, palpitations. He has had issues with lower extremity edema. Took metolazone and lasix yesterday with improvement. Review of Systems Cardiovascular: Reports leg swelling, Reports shortness of breath Respiratory: Reports shortness of breath Gastrointestinal: Reports black, tarry stools Musculoskeletal: Reports body aches, Reports joint pain Neurologic: Reports other (syncope) Hematologic/Lymphatic: Reports easy bruising PMFSH - History History Provided By: Patient, Medical Record - Medical History Medical History: Medical History (Last Reviewed 05/13/18 @ 14:55 by Makenzie Spears PT) A-fib CAD (coronary artery disease) CHF (congestive heart failure) Diabetes History of COPD History of breast cancer History of colon cancer History of prostate cancer Hx of syncope - Surgical History Surgical History: Surgical History (Last Reviewed 05/13/18 @ 14:55 by Makenzie Spears PT) H/O knee surgery H/O neck surgery H/O prostatectomy H/O shoulder surgery History of colon resection Hx of appendectomy Hx of cholecystectomy Previous back surgery - Family History Family History: Family History (Last Reviewed 05/13/18 @ 14:55 by Makenzie Spears PT) Other Diabetes mellitus - Tobacco History Second Hand Smoke Exposure: No Tobacco Use In Past 30 Days: No Smoking Status: Former smoker Tobacco Type: Cigarettes - Alcohol History How Often Do You Have a Drink Containing Alcohol: Monthly or less - Substance Use History Substance History: No History of Abuse - Travel History Recent Travel in the [place] Within the Last 8 Weeks: No Recent Travel Out of the Country Within the Last 8 Weeks: No - Immunization History Tetanus Immunization: <5 Years Hx Influenza Vaccine This Season: Yes Medications and Allergies Allergies Allergy/AdvReac Type Severity Reaction Status Date / Time adhesive Allergy Severe Rash Verified 05/12/18 19:12 atorvastatin Allergy Severe MUSCLE Verified 05/12/18 19:12 WEAKNESS pravastatin Allergy Severe MUSCLE Verified 05/12/18 19:12 WEAKNESS rosuvastatin Allergy Severe MUSCLE Verified 05/12/18 19:12 WEAKNESS morphine AdvReac Severe BECOMES Verified 05/12/18 19:12 VERY AGGRESSIVE Home Medications Medication Instructions Recorded Confirmed Type amiodarone 200 mg PO DAILY 05/12/18 05/12/18 History amlodipine 5 mg PO DAILY 05/12/18 05/12/18 History apixaban [Eliquis] 5 mg PO BID 05/12/18 05/12/18 History atorvastatin 10 mg PO 05/12/18 History clopidogrel 75 mg PO DAILY 05/12/18 05/12/18 History duloxetine 60 mg PO DAILY 05/12/18 05/12/18 History furosemide 40 mg PO DAILY 05/12/18 05/12/18 History gabapentin 600 mg PO BID 05/12/18 05/12/18 History glimepiride 2 mg PO QAM 05/12/18 05/12/18 History hydrocodone-acetaminophen 1 tab PO Q6H PRN 05/12/18 05/12/18 History insulin NPH isoph U-100 human 75 unit SUB-Q HS 05/12/18 05/12/18 History [Novolin N NPH U-100 Insulin] insulin NPH isoph U-100 human 95 unit SUB-Q AC 05/12/18 05/12/18 History [Novolin N NPH U-100 Insulin] insulin regular human [Novolin R 20 unit SUB-Q QAM 05/12/18 05/12/18 History Regular U-100 Insuln] insulin regular human [Novolin R 50 unit SUB-Q HS 05/12/18 05/12/18 History Regular U-100 Insuln] isosorbide mononitrate 05/12/18 History losartan-hydrochlorothiazide 05/12/18 05/12/18 History metolazone 05/12/18 History metoprolol tartrate 75 mg PO BID 05/12/18 05/12/18 History montelukast 10 mg PO QPM 05/12/18 05/12/18 History pantoprazole 40 mg PO DAILY 05/12/18 05/12/18 History ropinirole 0.5 mg PO TID 05/12/18 05/12/18 History Active Medications: Active Medications Amiodarone HCl (Cordarone) 200 mg PO DAILY [facility] Last Admin: 05/13/18 08:02 Dose: 200 mg Amlodipine Besylate (Norvasc) 5 mg PO DAILY [facility] Last Admin: 05/13/18 08:02 Dose: 5 mg Atorvastatin Calcium (Lipitor) 10 mg PO [facility] Dextrose (D50w Vial) 50 ml IV.PUSH UNSCH PRN PRN Reason: PER HYPOGLYCEMIA PROTOCOL Duloxetine HCl (Cymbalta) 60 mg PO DAILY [facility] Last Admin: 05/13/18 08:03 Dose: Not Given Furosemide (Lasix) 40 mg PO DAILY [facility] Last Admin: 05/13/18 08:02 Dose: 40 mg Gabapentin (Neurontin) 600 mg PO BID [facility] Last Admin: 05/13/18 08:03 Dose: Not Given Glucagon (Glucagon Inj) 1 mg OTHER PRN PRN PRN Reason: for Hypoglycemia Protocol Hydrochlorothiazide (Hydrodiuril) 25 mg PO DAILY [facility] Last Admin: 05/13/18 08:02 Dose: 25 mg Insulin Aspart (Novolog Insulin Correctional Sugar Inj) 0 unit SQ ACHS AND 3AM SHAWN; Protocol Last Admin: 05/13/18 17:34 Dose: Not Given Losartan Potassium (Cozaar) 100 mg PO DAILY [facility] Last Admin: 05/13/18 08:02 Dose: 100 mg Magnesium Citrate (Citroma Liq) 300 ml PO ONCE ONE Stop: 05/13/18 18:01 Metolazone (Zaroxolyn) 5 mg PO DAILY [facility] Last Admin: 05/13/18 08:04 Dose: Not Given Metoprolol Tartrate (Lopressor) 75 mg PO BID [facility] Last Admin: 05/13/18 08:02 Dose: 75 mg Naloxone HCl (Narcan Inj) 0.4 mg IV.PUSH UNSCH PRN PRN Reason: SEE LABEL COMMENTS Ondansetron HCl (Zofran Inj) 4 mg IV.PUSH Q6H PRN PRN Reason: NAUSEA Last Admin: 05/13/18 16:27 Dose: 4 mg Oxycodone HCl (Roxicodone) 5 mg PO Q4H PRN PRN Reason: PAIN SCALE 3 TO 5 Oxycodone HCl (Roxicodone) 10 mg PO Q4H PRN PRN Reason: PAIN SCALE 6 TO 10 Last Admin: 05/13/18 16:25 Dose: 10 mg Pantoprazole Sodium (Protonix Inj) 40 mg IV.PUSH DAILY [facility] Last Admin: 05/13/18 08:03 Dose: Not Given Polyethylene Glycol/Electrolytes (Colyte Liq) 240 ml PO Q10M [facility] Stop: 05/13/18 22:59 Last Admin: 05/13/18 17:53 Dose: Not Given Sodium Chloride (Ns Flush) 2 ml IV.FLUSH PRN PRN PRN Reason: FLUSH AFTER USING IV ACCESS Sodium Chloride (Ns Flush) 2 ml IV.FLUSH BID [facility] Last Admin: 05/13/18 08:03 Dose: 2 ml Exam Vital signs: Vital Signs 05/12/18 19:04 05/12/18 19:12 05/12/18 21:32 Temperature 98.1 F 98.1 F Pulse Rate 74 73 68 Respiratory Rate 18 18 Blood Pressure 129/60 129/60 Pulse Oximetry 98 98 05/12/18 23:04 05/12/18 23:19 05/12/18 23:50 Temperature 97.9 F 97.5 F L Pulse Rate 61 63 60 Respiratory Rate 18 18 Blood Pressure 146/67 H 145/60 H 140/68 Pulse Oximetry 95 98 05/13/18 03:05 05/13/18 03:09 05/13/18 04:00 Temperature 97.5 F L 97.5 F L 97.5 F L Pulse Rate 74 68 68 Respiratory Rate 23 18 18 Blood Pressure 138/63 138/63 138/63 Pulse Oximetry 96 96 98 05/13/18 08:00 05/13/18 08:02 05/13/18 10:16 Temperature 97.5 F L Pulse Rate 69 80 82 Respiratory Rate 18 Blood Pressure 157/67 H Pulse Oximetry 95 05/13/18 12:00 05/13/18 12:56 05/13/18 16:55 Temperature 97.3 F L Pulse Rate 64 Respiratory Rate 18 18 18 Blood Pressure 122/58 L Pulse Oximetry 95 Intake & Output 05/12/18 05/13/18 05/13/18 18:59 06:59 18:59 Intake Total 900 / 900 0 / 0 Output Total 700 / 700 700 / 700 Balance 200 / 200 -700 / -700 Weight 154.9 kg Intake: IV 0 / 0 Oral 0 / 0 Other 500 / 500 Intake (Blood Product) Amt 400 / 400 Rbc As-3 Leukoreduced Unit 400 / 400 [id number] Output: Urine 700 / 700 700 / 700 Other: Other Intake Source Saline Solution Date of Last Bowel Movement 05/12/18 05/12/18 - Constitutional no acute distress - Routine HEENT Exam Head: Present: normocephalic Eye: Present: PERRL ENT: Present: mucous membranes moist - Routine Neck Exam Present: supple - Routine Respiratory Exam Present: CTA bilaterally - Routine Cardiovascular Exam Present: RRR, S1, S2 - Routine Abdominal Exam Present: soft, normoactive bowel sounds - Routine Skin Exam Present: ecchymosis (right fingers/hand) - Routine Neurological Exam Present: alert, oriented X3, moving all extremities Results 05/13/18 13:23 05/12/18 23:00 Cardiac Enzymes 05/12/18 05/12/18 05/12/18 Range/Units 19:15 19:15 19:15 AST 30 (15-37) U/L Troponin I Less than 0.02 L Cancelled (0.02-0.05) ng/mL B-Natriuretic Peptide 194 H (0-100) pg/mL Coagulation 05/12/18 05/12/18 Range/Units 19:15 19:15 PT 10.0 (9.8-11.6) sec APTT 18.8 L (24.3-30.1) sec B-Natriuretic Peptide 194 H (0-100) pg/mL CBC 05/12/18 05/12/18 05/13/18 Range/Units 19:15 23:00 13:23 WBC 18.9 H 19.3 H (4.0-11.0) th/mm3 RBC 3.53 L 3.62 L (4.50-5.90) mil/mm3 Hgb 7.8 L 7.4 L 8.9 L (13.0-17.0) gm/dL Hct 25.0 L 25.5 L 28.2 L (39.0-51.0) % Plt Count 419 432 (150-450) th/mm3 Neut # (Auto) 15.3 H 13.9 H (1.8-7.7) th/mm3 Lymph # (Auto) 2.0 3.2 (1.0-4.8) th/mm3 [place] # (Auto) 1.4 H 2.0 H (0.0-0.9) th/mm3 Eos # (Auto) 0.0 0.0 (0.0-0.4) th/mm3 Baso # (Auto) 0.1 0.2 (0.0-0.2) th/mm3 Comprehensive Metabolic Panel 05/12/18 05/12/18 Range/Units 19:15 23:00 Sodium 135 L 138 (136-145) meq/L Potassium 4.3 3.6 (3.5-5.1) meq/L Chloride 98 101 (98-107) meq/L Carbon Dioxide 24.0 30.6 (21.0-32.0) meq/L BUN 29 H 28 H (7-18) mg/dL Creatinine 1.41 H 1.26 (0.60-1.30) mg/dL Calcium 8.7 8.2 L (8.5-10.1) mg/dL AST 30 (15-37) U/L ALT 89 H (12-78) U/L Alkaline Phosphatase 76 (45-117) U/L Total Protein 6.2 L (6.4-8.2) g/dL Albumin 3.1 L (3.4-5.0) g/dL Intake and Output 05/13/18 05/13/18 05/13/18 06:59 14:59 22:59 Intake Total 900 / 900 0 / 0 Output Total 700 / 700 700 / 700 Balance 200 / 200 0 / 0 -700 / -700 Intake: IV 0 / 0 Oral 0 / 0 Other 500 / 500 Intake (Blood Product) Amt 400 / 400 Rbc As-3 Leukoreduced Unit 400 / 400 [id number] Output: Urine 700 / 700 700 / 700 Other: Other Intake Source Saline Solution Date of Last Bowel Movement 05/12/18 05/12/18 Weight 154.9 kg - EKG Interpretation EKG shows: sinus rhythm Assessment and Plan - Assessment (1) Syncope Code(s): R55 - Syncope and collapse Status: Acute (2) Anemia Code(s): D64.9 - Anemia, unspecified Status: Acute (3) GI bleed Code(s): K92.2 - Gastrointestinal hemorrhage, unspecified Status: Acute (4) CAD (coronary artery disease) Code(s): I25.10 - Atherosclerotic heart disease of [place] coronary artery without angina pectoris Status: Chronic (5) Paroxysmal A-fib Code(s): I48.0 - Paroxysmal atrial fibrillation Status: Chronic (6) Hypertension Code(s): I10 - Essential (primary) hypertension Status: Chronic (7) Obesity Code(s): E66.9 - Obesity, unspecified Status: Chronic (8) Diabetes mellitus Code(s): E11.9 - Type 2 diabetes mellitus without complications Status: Chronic - Plan Syncope secondary to symptomatic anemia/GIB. Agree with holding eliquis. He will need to resume aspirin, plavix due to recent stenting of the RCA in December. Currently in SR. Continue amiodarone, beta gunner. Will check echocardiogram to evaluate morphology and function. Continue diuretic therapy. Carotid US pending. Dr. Ellsworth to follow tomorrow. Code Status: full Discussed Condition With: Dr Lopez <Ady Lopez - Last Filed: 05/14/18 09:58> History of Present Illness Primary Care Provider: Frederick Jean [facility] - Medical History Medical History: Medical History (Last Reviewed 05/13/18 @ 14:55 by Makenzie Spears PT) A-fib CAD (coronary artery disease) CHF (congestive heart failure) Diabetes History of COPD History of breast cancer History of colon cancer History of prostate cancer Hx of syncope - Surgical History Surgical History: Surgical History (Last Reviewed 05/13/18 @ 14:55 by Makenzie Spears PT) H/O knee surgery H/O neck surgery H/O prostatectomy H/O shoulder surgery History of colon resection Hx of appendectomy Hx of cholecystectomy Previous back surgery - Family History Family History: Family History (Last Reviewed 05/13/18 @ 14:55 by Makenzie Spears PT) Other Diabetes mellitus Medications and Allergies Active Medications: Active Medications Amiodarone HCl (Cordarone) 200 mg PO DAILY [facility] Last Admin: 05/14/18 09:06 Dose: 200 mg Amlodipine Besylate (Norvasc) 5 mg PO DAILY [facility] Last Admin: 05/14/18 09:06 Dose: 5 mg Aspirin (Aspirin Chew) 81 mg PO DAILY [facility] Atorvastatin Calcium (Lipitor) 10 mg PO HS [facility] Last Admin: 05/13/18 20:46 Dose: Not Given Chlorhexidine Gluconate (Chlorhexidine 2% Cloth) 3 pack TOPICAL LINE HELPER [facility] Stop: 05/17/18 04:02 Clopidogrel Bisulfate (Plavix) 75 mg PO DAILY [facility] Dextrose (D50w Vial) 50 ml IV.PUSH UNSCH PRN PRN Reason: PER HYPOGLYCEMIA PROTOCOL Duloxetine HCl (Cymbalta) 60 mg PO DAILY [facility] Last Admin: 05/14/18 09:05 Dose: 60 mg Furosemide (Lasix) 40 mg PO DAILY [facility] Last Admin: 05/14/18 09:06 Dose: 40 mg Gabapentin (Neurontin) 600 mg PO BID [facility] Last Admin: 05/14/18 09:06 Dose: 600 mg Glucagon (Glucagon Inj) 1 mg OTHER PRN PRN PRN Reason: for Hypoglycemia Protocol Hydrochlorothiazide (Hydrodiuril) 25 mg PO DAILY [facility] Last Admin: 05/14/18 09:07 Dose: 25 mg Lactated Ringer's (Lr 1000 Ml Inj) 1,000 mls @ 30 mls/hr IV.SIG .Q24H SHAWN Stop: 05/17/18 04:02 Last Admin: 05/14/18 09:07 Dose: 30 mls/hr Sodium Chloride (Ns Inj) 500 mls @ 30 mls/hr IV.SIG .Q10H [facility] Stop: 05/17/18 04:02 Insulin Aspart (Novolog Insulin Correctional Sugar Inj) 0 unit SQ ACHS AND 3AM SHAWN; Protocol Last Admin: 05/14/18 09:07 Dose: Not Given Losartan Potassium (Cozaar) 100 mg PO DAILY [facility] Last Admin: 05/14/18 09:06 Dose: 100 mg Metolazone (Zaroxolyn) 5 mg PO DAILY [facility] Last Admin: 05/13/18 08:04 Dose: Not Given Metoprolol Tartrate (Lopressor) 75 mg PO BID [facility] Last Admin: 05/14/18 09:06 Dose: 75 mg Naloxone HCl (Narcan Inj) 0.4 mg IV.PUSH UNSCH PRN PRN Reason: SEE LABEL COMMENTS Ondansetron HCl (Zofran Inj) 4 mg IV.PUSH Q6H PRN PRN Reason: NAUSEA Last Admin: 05/13/18 16:27 Dose: 4 mg Oxycodone HCl (Roxicodone) 5 mg PO Q4H PRN PRN Reason: PAIN SCALE 3 TO 5 Oxycodone HCl (Roxicodone) 10 mg PO Q4H PRN PRN Reason: PAIN SCALE 6 TO 10 Last Admin: 05/14/18 07:21 Dose: 10 mg Pantoprazole Sodium (Protonix Inj) 40 mg IV.PUSH DAILY [facility] Last Admin: 05/14/18 09:05 Dose: 40 mg Povidone Iodine (Betadine 5% Antisepsis Kit) 1 applicatio EACH NARE LINE HELPER [facility] Stop: 05/17/18 04:02 Sodium Chloride (Ns Flush) 2 ml IV.FLUSH PRN PRN PRN Reason: FLUSH AFTER USING IV ACCESS Sodium Chloride (Ns Flush) 2 ml IV.FLUSH BID [facility] Last Admin: 05/14/18 09:05 Dose: 2 ml Exam Vital signs: Vital Signs 05/13/18 10:16 05/13/18 12:00 05/13/18 12:56 Temperature 97.3 F L Pulse Rate 82 64 Respiratory Rate 18 18 Blood Pressure 122/58 L Pulse Oximetry 95 05/13/18 16:00 05/13/18 16:55 05/13/18 20:00 Temperature 97.6 F 97.6 F Pulse Rate 64 93 H Respiratory Rate 18 18 19 Blood Pressure 129/69 137/62 Pulse Oximetry 92 L 95 05/13/18 21:14 05/13/18 22:42 05/14/18 00:00 Temperature 97.7 F Pulse Rate 75 66 Respiratory Rate 18 17 Blood Pressure 132/70 Pulse Oximetry 94 L 05/14/18 01:06 05/14/18 03:53 05/14/18 03:54 Temperature Pulse Rate 63 Respiratory Rate 18 18 Blood Pressure Pulse Oximetry 05/14/18 04:00 05/14/18 07:52 Temperature 98.1 F 97.8 F Pulse Rate 63 66 Respiratory Rate 18 17 Blood Pressure 136/60 153/63 H Pulse Oximetry 93 L 94 L Intake & Output 05/13/18 05/14/18 05/14/18 18:59 06:59 18:59 Intake Total 1920 / 1920 Output Total 700 / 700 350 / 350 Balance 1220 / 1220 -350 / -350 Weight 155 kg Intake: IV 0 / 0 Oral 1920 / 1920 Output: Urine 700 / 700 350 / 350 Other: # Voids 1 Date of Last Bowel Movement 05/12/18 05/13/18 Results 05/14/18 07:14 05/14/18 07:14 Cardiac Enzymes 05/13/18 Range/Units 13:23 B-Natriuretic Peptide 82 (0-100) pg/mL Coagulation 05/13/18 Range/Units 13:23 B-Natriuretic Peptide 82 (0-100) pg/mL CBC 05/13/18 05/14/18 Range/Units 13:23 07:14 WBC 17.1 H (4.0-11.0) th/mm3 RBC 4.17 L (4.50-5.90) mil/mm3 Hgb 8.9 L 9.1 L (13.0-17.0) gm/dL Hct 28.2 L 30.1 L (39.0-51.0) % Plt Count 373 (150-450) th/mm3 Neut # (Auto) 12.4 H (1.8-7.7) th/mm3 Lymph # (Auto) 2.9 (1.0-4.8) th/mm3 [place] # (Auto) 1.7 H (0.0-0.9) th/mm3 Eos # (Auto) 0.0 (0.0-0.4) th/mm3 Baso # (Auto) 0.1 (0.0-0.2) th/mm3 Comprehensive Metabolic Panel 05/14/18 Range/Units 07:14 Sodium 136 (136-145) meq/L Potassium 3.7 (3.5-5.1) meq/L Chloride 92 L D (98-107) meq/L Carbon Dioxide 34.0 H (21.0-32.0) meq/L BUN 25 H (7-18) mg/dL Creatinine 1.31 H (0.60-1.30) mg/dL Calcium 8.4 L (8.5-10.1) mg/dL Albumin 3.3 L (3.4-5.0) g/dL Intake and Output 05/13/18 05/14/18 05/14/18 22:59 06:59 14:59 Intake Total 1920 / 1920 Output Total 700 / 700 350 / 350 Balance 1220 / 1220 -350 / -350 Intake: Oral 1919 / 1920 Output: Urine 700 / 700 350 / 350 Other: # Voids 1 Date of Last Bowel Movement 05/13/18 Weight 155 kg Assessment and Plan - Attending Attestation Pt. seen and examined. Given recent stenting resume ASA and plavix. Echo will be checked. BNP will be monitored. Gentle diuresis. <Yue Cao R - Last Filed: 05/13/18 21:00> (1) Syncope Qualifiers: Syncope type: unspecified Qualified Code(s): R55 - Syncope and collapse (2) Anemia Qualifiers: Anemia type: unspecified type Qualified Code(s): D64.9 - Anemia, unspecified (3) GI bleed Qualifiers: GI bleed type/associated pathology: unspecified gastrointestinal hemorrhage type Qualified Code(s): K92.2 - Gastrointestinal hemorrhage, unspecified
[2018-05-14] MEDS: Insulin NovoLOG Aspart Correctional Sugar Inj SQ SCH ×5 (02:50→20:35)
[2018-05-14] MEDS ORDERED: Chlorhexidine Gluconate 2% 1 Pack (2 Cloths) TOPICAL SCH (04:15)
[2018-05-14] MEDS ORDERED: Sodium Chlor 0.9% Inj 500 ML IV.SIG SCH (05:00)
[2018-05-14 07:55] LABS: Baso # (Auto) 0.1 th/mm3 (0.0-0.2); Baso % (Auto) 0.3 % (0.0-2.0); Eos % (Auto) 0.2 % (0.0-4.0); Hematocrit 30.1 % (39.0-51.0); Hemoglobin 9.1 gm/dL (13.0-17.0); Lymph # (Auto) 2.9 th/mm3 (1.0-4.8); Lymph % (Auto) 16.8 % (9.0-44.0); Mean Corpuscular Hemoglobin 21.8 pg (27.0-34.0); Mean Corpuscular Volume 72.2 fL (80.0-100.0); Mean Platelet Volume 6.8 fL (7.0-11.0); Mono # (Auto) 1.7 th/mm3 (0.0-0.9); Mono % (Auto) 9.9 % (0.0-8.0); Neut # (Auto) 12.4 th/mm3 (1.8-7.7); Neut % (Auto) 72.8 % (16.0-70.0); Platelet Count 373 th/mm3 (150-450); Red Blood Count 4.17 mil/mm3 (4.50-5.90); Red Cell Distribution Width 18.9 % (11.6-17.2); White Blood Count 17.1 th/mm3 (4.0-11.0)
[2018-05-14 08:03] LABS: Mean Corpuscular HGB Conc 30.1 % (32.0-36.0)
[2018-05-14 08:37] LABS: Albumin 3.3 g/dL (3.4-5.0); Calcium 8.4 mg/dL (8.5-10.1); Magnesium 3.4 mg/dL (1.5-2.5); Phosphorus 4.8 mg/dL (2.5-4.9); Potassium 3.7 meq/L (3.5-5.1)
[2018-05-14] MEDS: Pantoprazole Inj 40 MG Vial IV.PUSH SCH (09:05)
[2018-05-14] MEDS: Duloxetine 60 MG DR Capsule PO SCH (09:05)
[2018-05-14] MEDS: Amiodarone 200 MG Tablet PO SCH (09:06)
[2018-05-14] MEDS: amLODIPine 5 MG Tablet PO SCH (09:06)
[2018-05-14] MEDS: Metoprolol Tartrate 25 MG Tablet PO SCH ×2 (09:06→20:31)
[2018-05-14] MEDS: Furosemide 40 MG Tablet PO SCH (09:06)
[2018-05-14] MEDS: Gabapentin 300 MG Capsule PO SCH ×2 (09:06→20:32)
[2018-05-14] MEDS: hydroCHLOROthiazide 25 MG Tablet PO SCH (09:07)
[2018-05-14] MEDS: metOLazone 5 MG Tablet PO SCH (11:12)
[2018-05-14] MEDS ORDERED: Glycopyrrolate Inj 1 MG/5 ML Syringe IV.PUSH ONE (12:00)
[2018-05-14] MEDS ORDERED: Lidocaine PF 1% Inj 5 ML Syringe INFILTRATN ONE (12:00)
[2018-05-14] MEDS ORDERED: Ketamine Inj 50 MG/5 ML Syringe IV.PUSH ONE (14:42)
--- NOTE | 2018-05-14 16:17 | P.PCN ---
Date of procedure: 05/14/18 Pre-op diagnosis: GI bleed, anemia Procedure: PROCEDURE PERFORMED EGD with snare polypectomy and colonoscopy with snare polypectomy INDICATION FOR PROCEDURE Anemia, GI bleed PROCEDURE: The procedure, risks and benefits were discussed with Patient/POA and informed consent was obtained. Anesthesia sedated Patient with Diprivan. Patient was placed in the left lateral decubitus position. EGD: The Pentax videoscope was introduced through the oropharynx and advanced to the second portion of the duodenum under direct visualization. Retroflexion was performed in the stomach. FINDINGS: The esophagus this appeared to be unremarkable with normal limits Stomach there was 3 polypoid lesions in the antrum somewhat erythemic may be inflammatory of unclear etiology all 3 were removed using hot snare technique otherwise gastric mucosa was unremarkable The duodenum this appeared to be unremarkable and within normal limits Colonoscopy: The Pentax videoscope was introduced through the rectum and advanced to cecum where the ileocecal valve and appendiceal orifice were identified. Retroflexion was performed in the rectum. Colonic prep was poor FINDINGS: Colonic withdrawal time greater than 6 minutes. 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 both were cauterized he was also found to have a small sessile polyp in the proximal transverse colon this was removed using hot snare technique otherwise colonic examination was unremarkable the patient did have scattered diverticulosis retroflexion in the rectum was unremarkable so his rectal examination ESTIMATED BLOOD LOSS: None SPECIMENS REMOVED: Gastric and colon biopsies COMPLICATIONS: None IMPRESSION: Gastric polyps Cecal AVMs Colon polyp Colon diverticulosis PLAN: Await biopsies Monitor labs and transfuse as needed Follow-up with GI post discharge consideration to be made for capsule endoscopy if anemia persists Patient will need repeat colonoscopy within 1 year Continue with current supportive care Anesthesia: MAC Surgeon: Lee Guardado Condition: stable Disposition: floor
--- NOTE | 2018-05-14 16:58 | ECG ---
Date Performed: 05/12/2018 Time Performed: 22:08:09 PTAGE: 67 years EKG: Sinus rhythm MARKED LEFT AXIS DEVIATION POSSIBLE RIGHT VENTRICULAR CONDUCTION DELAY NONSPECIFIC T-WAVE ABNORMALIT Y ABNORMAL ECG PREVIOUS TRACING : 01/31/2018 01.59 DOCTOR: Austin Mcclure Interpretating Date/Time 05/14/2018 16:57:47
[2018-05-15] MEDS: Insulin NovoLOG Aspart Correctional Sugar Inj SQ SCH ×5 (03:16→21:11)
--- NOTE | 2018-05-15 07:20 | P.PNIM ---
Subjective Interval history: late entry. Date of service 05/14/2018 Patient seen after EGD. Sleeping, wakes up for exam. Denies any chest pain or shortness of breath. Physical Exam Vital signs: Vital Signs 05/14/18 07:52 05/14/18 08:00 05/14/18 11:00 Temperature 97.8 F 98.1 F Pulse Rate 66 66 66 Respiratory Rate 17 18 Blood Pressure 153/63 H 166/70 H Pulse Oximetry 94 L 93 L 05/14/18 16:20 05/14/18 17:00 05/14/18 17:45 Temperature 98.3 F 97.4 F L Pulse Rate 69 64 Respiratory Rate 20 17 Blood Pressure 112/56 L 96/46 L 116/69 Pulse Oximetry 99 90 L 94 L 05/14/18 18:00 05/14/18 18:06 05/14/18 20:00 Temperature 97.5 F L Pulse Rate 88 88 62 Respiratory Rate 18 18 Blood Pressure 116/69 117/71 Pulse Oximetry 95 92 L 05/14/18 21:02 05/14/18 23:48 05/15/18 00:00 Temperature 97.2 F L Pulse Rate 67 70 Respiratory Rate 18 18 Blood Pressure 140/65 Pulse Oximetry 93 L 05/15/18 01:30 05/15/18 03:51 05/15/18 04:30 Temperature 97.4 F L Pulse Rate 67 64 Respiratory Rate 18 19 Blood Pressure 131/61 Pulse Oximetry 93 L Intake & Output 05/14/18 05/15/18 05/15/18 18:59 06:59 18:59 Intake Total 480 / 480 Output Total 600 / 600 600 / 600 Balance -600 / -600 -120 / -120 Intake: Oral 480 / 480 Output: Urine 600 / 600 600 / 600 Other: Date of Last Bowel Movement 05/13/18 Narrative: GENERAL: sleeping in Bed. Appears comfortable. SKIN: Warm and dry. HEAD: Normocephalic. EYES: No scleral icterus. No injection or drainage. NECK: Supple, trachea midline. No JVD. CARDIOVASCULAR: Regular rate and rhythm without murmurs, gallops, or rubs. RESPIRATORY: Breath sounds equal bilaterally. No accessory muscle use. GASTROINTESTINAL: Abdomen soft, non-tender, nondistended. MUSCULOSKELETAL: No cyanosis, or edema. BACK: Nontender without obvious deformity. No CVA tenderness. Results - Labs CBC & Chem 7: 05/14/18 07:14 05/14/18 07:14 Laboratory Results - last 24 hr 05/14/18 05/14/18 05/14/18 07:14 07:14 11:40 WBC 17.1 H RBC 4.17 L Hgb 9.1 L Hct 30.1 L MCV 72.2 L MCH 21.8 L MCHC 30.1 L RDW 18.9 H Plt Count 373 MPV 6.8 L Neut % (Auto) 72.8 H Lymph % (Auto) 16.8 Bowie % (Auto) 9.9 H Eos % (Auto) 0.2 Baso % (Auto) 0.3 Neut # (Auto) 12.4 H Lymph # (Auto) 2.9 Bowie # (Auto) 1.7 H Eos # (Auto) 0.0 Baso # (Auto) 0.1 WBC Differential . Differential Comment Auto diff final Sodium 136 Potassium 3.7 Chloride 92 L D Carbon Dioxide 34.0 H Anion Gap 10 BUN 25 H Creatinine 1.31 H Estimated GFR 55 L POC Glucose 269 H Random Glucose 243 H Calcium 8.4 L Phosphorus 4.8 Magnesium 3.4 H D Albumin 3.3 L 05/14/18 05/15/18 20:25 03:13 WBC RBC Hgb Hct MCV MCH MCHC RDW Plt Count MPV Neut % (Auto) Lymph % (Auto) Bowie % (Auto) Eos % (Auto) Baso % (Auto) Neut # (Auto) Lymph # (Auto) Bowie # (Auto) Eos # (Auto) Baso # (Auto) WBC Differential Differential Comment Sodium Potassium Chloride Carbon Dioxide Anion Gap BUN Creatinine Estimated GFR POC Glucose 211 H 210 H Random Glucose Calcium Phosphorus Magnesium Albumin Microbiology 05/12/18 20:54 Blood - Peripheral Aerobic Blood Culture - Preliminary No growth in 2 days 05/12/18 20:54 Blood - Peripheral Anaerobic Blood Culture - Preliminary No growth in 2 days 05/12/18 20:45 Blood - Peripheral Aerobic Blood Culture - Preliminary No growth in 2 days 05/12/18 20:45 Blood - Peripheral Anaerobic Blood Culture - Preliminary No growth in 2 days Assessment and Plan - Assessment (1) Generalized weakness Code(s): R53.1 - Weakness Status: Acute - Plan //Symptomatic anemia/syncope/lower GI bleed H&H 7.8/25.0 Hemoccult positive ED with history of black, tarry stools N.p.o. IV Protonix Gastroenterology consulted, appreciate recommendations GoLYTELY Echo/carotid ultrasound to evaluate for other etiologies of syncope Transfuse 2 units packed red blood cells Monitor CBC = 05/13. Hemoglobin improved 8.9. Continue to monitor. Continue to hold blood thinners. = 05/14. Hemoglobin stable. EGD with AVM which was cauterized. Appreciate GI assistance. Continue to monitor hemoglobin. Patient will need to start back on Plavix as per cardiology. //Syncope. Patient follows with cardiology. Will consult tar pot man as per patient request. = Appreciate cardiology assistance. Echocardiogram pending. I have called [employer] to order a loop recorder interrogation. //Hyperglycemia/diabetes mellitus Sugar 340 however patient just completed p.o. steroids Sliding-scale insulin Monitor blood glucose //Atrial fibrillation Continue amiodarone/metoprolol Holding home Eliquis secondary to GI bleed //CHF/CAD Status post [place] Holding Plavix secondary to GI bleed Continue home medications //Sleep apnea. will bring home CPAP. FEN N.p.o. Electrolytes: Monitor and replete as needed Holding pharmacologic anticoagulation secondary to GI bleed Discharge Planning: Pending GI clearance. pending cardiology clearance.
[2018-05-15 08:23] LABS: Hematocrit 27.9 % (39.0-51.0); Hemoglobin 8.5 gm/dL (13.0-17.0); Mean Corpuscular Hemoglobin 22.1 pg (27.0-34.0); Mean Corpuscular Volume 72.2 fL (80.0-100.0); Mean Platelet Volume 6.9 fL (7.0-11.0); Platelet Count 322 th/mm3 (150-450); Red Blood Count 3.86 mil/mm3 (4.50-5.90); Red Cell Distribution Width 19.3 % (11.6-17.2); White Blood Count 17.3 th/mm3 (4.0-11.0)
[2018-05-15 08:27] LABS: Mean Corpuscular HGB Conc 30.6 % (32.0-36.0)
[2018-05-15 08:40] LABS: Alanine Aminotransferase 59 U/L (12-78); Anion Gap 7 meq/L (5-15); Aspartate Aminotransferase 20 U/L (15-37); Blood Urea Nitrogen 22 mg/dL (7-18); Calcium 8.2 mg/dL (8.5-10.1); Carbon Dioxide 35.6 meq/L (21.0-32.0); Chloride 93 meq/L (98-107); Glomerular Filtration Rate 53 mL/min (>89); Glucose,Random 193 mg/dL (74-106); Potassium 3.3 meq/L (3.5-5.1); Sodium 136 meq/L (136-145)
[2018-05-15 08:42] LABS: Alkaline Phosphatase 67 U/L (45-117); Total Protein 6.1 g/dL (6.4-8.2)
[2018-05-15] MEDS: Gabapentin 300 MG Capsule PO SCH ×2 (08:44→21:02)
[2018-05-15] MEDS: metOLazone 5 MG Tablet PO SCH (08:44)
[2018-05-15] MEDS: Duloxetine 60 MG DR Capsule PO SCH (08:44)
[2018-05-15] MEDS: Amiodarone 200 MG Tablet PO SCH (08:44)
[2018-05-15] MEDS: Metoprolol Tartrate 25 MG Tablet PO SCH ×2 (08:44→21:02)
[2018-05-15] MEDS: Furosemide 40 MG Tablet PO SCH (08:45)
[2018-05-15] MEDS: amLODIPine 5 MG Tablet PO SCH (08:45)
[2018-05-15] MEDS: hydroCHLOROthiazide 25 MG Tablet PO SCH (08:45)
--- NOTE | 2018-05-15 08:59 | ECHRPT ---
Indication: HEART FAILURE CONCLUSIONS Normal left ventricular size. Mild to moderate concentric left ventricular hypertrophy. The left ventricular systolic function is normal with an estimated ejection fraction in the range of 55-60%. No definite wall motion abnormalities. Moderate mitral annular calcification is present. Mild aortic valve sclerosis is present. BP: / HR: Rhythm: MEASUREMENTS (Male / Female) Normal Values Technical Quality: 2D ECHO LV Diastolic Diameter PLAX 4.6 cm 4.2 - 5.9 / 3.9 - 5.3 cm LV Systolic Diameter PLAX 3.5 cm IVS Diastolic Thickness 1.6 cm 0.6 - 1.0 / 0.6 - 0.9 cm LVPW Diastolic Thickness 1.1 cm 0.6 - 1.0 / 0.6 - 0.9 cm LV Relative Wall Thickness 0.6 RV Internal Dim ED PLAX 2.1 cm LA Systolic Diameter LX 3.3 cm 3.0 - 4.0 / 2.7 - 3.8 cm DOPPLER Mitral E Point Velocity 60.2 cm/s Mitral A Point Velocity 75.5 cm/s Mitral E to A Ratio 0.8 TR Peak Velocity 219.0 cm/s TR Peak Gradient 19.2 mmHg Right Atrial Pressure 10.0 mmHg Pulmonary Artery Systolic Pressu 29.2 mmHg Right Ventricular Systolic Press 29.2 mmHg FINDINGS LEFT VENTRICLE Normal left ventricular size. Mild to moderate concentric left ventricular hypertrophy. The left ventricular systolic function is normal with an estimated ejection fraction in the range of 55-60%. No definite wall motion abnormalities. RIGHT VENTRICLE Normal right ventricular size and systolic function. LEFT ATRIUM The left atrial size is normal. RIGHT ATRIUM The right atrial size is normal. ATRIAL SEPTUM Normal atrial septal thickness without atrial level shunting by limited color doppler interrogation. AORTA The aortic root and proximal ascending aorta are normal in size on limited imaging. MITRAL VALVE Moderate mitral annular calcification is present. AORTIC VALVE Mild aortic valve sclerosis is present. TRICUSPID VALVE Structurally normal tricuspid valve. No tricuspid valve stenosis or regurgitation. PULMONARY VALVE No pulmonary valve regurgitation or stenosis. VESSELS The inferior vena cava is normal in size. PERICARDIUM No pericardial effusion. Gabe Camarillo MD (Electronically Signed) Final Date:15 May 2018 08:57
[2018-05-15] MEDS: Pantoprazole Inj 40 MG Vial IV.PUSH SCH (09:06)
--- NOTE | 2018-05-15 12:46 | P.PN ---
Subjective Interval history: Follow-up visit for symptomatic anemia, syncopal episode, A. fib, and CHF. Patient is seen and examined sitting up on the side of the bed eating lunch this afternoon, appears to be in no acute distress. Complines of left shoulder pain as well as right hand third and fourth digit pain. Patient is requesting a cortisone shot to the joint. He denies any shortness of breath, cough, fevers , chills, nausea, vomiting, diarrhea, yet to have a bowel movement today. Patient complains of some lower abdominal pain. He tolerated food today well without any nausea or vomiting. Physical Exam Vital signs: Vital Signs 05/14/18 16:20 05/14/18 17:00 05/14/18 17:45 Temperature 98.3 F 97.4 F L Pulse Rate 69 64 Respiratory Rate 20 17 Blood Pressure 112/56 L 96/46 L 116/69 Pulse Oximetry 99 90 L 94 L 05/14/18 18:00 05/14/18 18:06 05/14/18 20:00 Temperature 97.5 F L Pulse Rate 88 88 62 Respiratory Rate 18 18 Blood Pressure 116/69 117/71 Pulse Oximetry 95 92 L 05/14/18 21:02 05/14/18 23:48 05/15/18 00:00 Temperature 97.2 F L Pulse Rate 67 70 Respiratory Rate 18 18 Blood Pressure 140/65 Pulse Oximetry 93 L 05/15/18 01:30 05/15/18 03:51 05/15/18 04:30 Temperature 97.4 F L Pulse Rate 67 64 Respiratory Rate 18 19 Blood Pressure 131/61 Pulse Oximetry 93 L 05/15/18 08:00 Temperature 97.3 F L Pulse Rate 70 Respiratory Rate 24 Blood Pressure 100/49 L Pulse Oximetry 94 L Intake & Output 05/14/18 05/15/18 05/15/18 18:59 06:59 18:59 Intake Total 480 / 480 Output Total 600 / 600 600 / 600 Balance -600 / -600 -120 / -120 Intake: Oral 480 / 480 Output: Urine 600 / 600 600 / 600 Other: Date of Last Bowel Movement 05/13/18 Narrative: GENERAL: Well developed, obese male in no acute distress. SKIN: Warm and dry. HEAD: Normocephalic. EYES: No scleral icterus. No injection or drainage. NECK: Supple, trachea midline. CARDIOVASCULAR: Regular rate and rhythm without murmurs, gallops, or rubs. RESPIRATORY: Breath sounds equal bilaterally. No accessory muscle use. GASTROINTESTINAL: Abdomen soft, non-tender, nondistended. Hypoactive bowel sounds. MUSCULOSKELETAL: No cyanosis, or edema. Right hand third and fourth digit with limited range of motion secondary to pain, small amount of ecchymosis noted on third digit, no edema, capillary refill less than 3 seconds. Left shoulder with limited range of motion secondary to pain however able to perform passive range of motion, positive crepitus noted. Anterior tenderness with palpation, no edema, warmth or erythema noted. BACK: Nontender without obvious deformity. No CVA tenderness. Results - Labs CBC & Chem 7: 05/15/18 06:14 05/15/18 06:14 Laboratory Results - last 24 hr 05/14/18 05/15/18 05/15/18 20:25 03:13 06:14 WBC 17.3 H RBC 3.86 L Hgb 8.5 L Hct 27.9 L MCV 72.2 L MCH 22.1 L MCHC 30.6 L RDW 19.3 H Plt Count 322 MPV 6.9 L Sodium Potassium Chloride Carbon Dioxide Anion Gap BUN Creatinine Estimated GFR POC Glucose 211 H 210 H Random Glucose Calcium Total Bilirubin AST ALT Alkaline Phosphatase Total Protein Albumin 05/15/18 05/15/18 05/15/18 06:14 07:48 12:14 WBC RBC Hgb Hct MCV MCH MCHC RDW Plt Count MPV Sodium 136 Potassium 3.3 L Chloride 93 L Carbon Dioxide 35.6 H Anion Gap 7 BUN 22 H Creatinine 1.34 H Estimated GFR 53 L POC Glucose 214 H 252 H Random Glucose 193 H Calcium 8.2 L Total Bilirubin 0.9 AST 20 ALT 59 Alkaline Phosphatase 67 Total Protein 6.1 L Albumin 3.0 L Microbiology 05/12/18 20:54 Blood - Peripheral Aerobic Blood Culture - Preliminary No growth in 3 days 05/12/18 20:54 Blood - Peripheral Anaerobic Blood Culture - Preliminary No growth in 3 days 05/12/18 20:45 Blood - Peripheral Aerobic Blood Culture - Preliminary No growth in 3 days 05/12/18 20:45 Blood - Peripheral Anaerobic Blood Culture - Preliminary No growth in 3 days Assessment and Plan - Assessment (1) Generalized weakness Code(s): R53.1 - Weakness Status: Acute - Plan 67-year-old male with a past medical history significant for atrial fibrillation anticoagulated on Eliquis, diabetes mellitus, coronary artery disease status post [place], CHF (last ejection fraction 55%), COPD and a history of breast, colon and prostate cancers presents to ED on 05/12 due to syncopal episode. Symptomatic anemia/syncope/lower GI bleed H&H 7.8/25.0 Hemoccult positive ED with history of black, tarry stools - Gastroenterology consulted, appreciate recommendations - s/p 1 unit of PRBCs transfused -Continue to hold blood thinners, will need okay from GI to resume aspirin and Plavix -Status post EGD with snare polypectomy and colonoscopy with snare polypectomy and fulguration of AVM's 05/14. Procedure revealed gastric polyps, cecal AVM's, colon polyp and colon diverticulosis -H&H 9.1/30.1--> 8.5/27.9, stable, continue monitoring for black or bloody stools, none thus far. -Lower abdominal pain, GI plans for CT scan without contrast today Syncope. Patient follows with cardiology. -Cardiology consulted, appreciate assistance -Loop recorder interrogated, [employer] report noted sinus rhythm with PACs ( phone number [phone]) -2D echo showing EF 5560%, normal LV size, mild to moderate concentric left ventricular hypertrophy, no definitive wall motion abnormalities, moderate mitral annular calcification, mild aortic valve stenosis present -Bilateral carotid ultrasound with less than 50% stenosis -Cardiology recommends resuming aspirin and Plavix, as well as continue gentle diuresis, BNP within normal limits Hyperglycemia/diabetes mellitus Sugar 340 however patient just completed p.o. steroids (possibly also the reason behind leukocytosis) -Sliding-scale insulin -Monitor blood glucose Hypokalemia -Replace with 30 meq's p.o., recheck labs tomorrow Atrial fibrillation, chronic -Continue amiodarone/metoprolol -Holding home Eliquis secondary to GI bleed CHF/CAD Status post [place] -Holding Plavix secondary to GI bleed -Continue home medications Left shoulder pain Right finger pain -Extensive discussion with patient regarding use of cortisone injections for joints. Right hand x-ray negative for fractures. -We will check left shoulder x-ray, most likely musculoskeletal pain in nature. Trial of Lidoderm patch. 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
--- NOTE | 2018-05-15 15:04 | P.PNGI ---
Subjective Interval history: Patient's resting in the bed awake alert answering simple questions reviewed again with him the findings of his EGD colonoscopy performed on 05/14/2018 which include gastric polyps, AVMs in the cecum and diverticulosis. Recommendations were for capsule endoscopy if patient's hemoglobin continues to drop and repeat colonoscopy in one year. Current labs noted was hemoglobin 8.5, WBC count 17.3 leukocytosis unspecified. <Sydnie Dorado - Last Filed: 05/15/18 14:56> Physical Exam Vital signs: Vital Signs 05/14/18 16:20 05/14/18 17:00 05/14/18 17:45 Temperature 98.3 F 97.4 F L Pulse Rate 69 64 Respiratory Rate 20 17 Blood Pressure 112/56 L 96/46 L 116/69 Pulse Oximetry 99 90 L 94 L 05/14/18 18:00 05/14/18 18:06 05/14/18 20:00 Temperature 97.5 F L Pulse Rate 88 88 62 Respiratory Rate 18 18 Blood Pressure 116/69 117/71 Pulse Oximetry 95 92 L 05/14/18 21:02 05/14/18 23:48 05/15/18 00:00 Temperature 97.2 F L Pulse Rate 67 70 Respiratory Rate 18 18 Blood Pressure 140/65 Pulse Oximetry 93 L 05/15/18 01:30 05/15/18 03:51 05/15/18 04:30 Temperature 97.4 F L Pulse Rate 67 64 Respiratory Rate 18 19 Blood Pressure 131/61 Pulse Oximetry 93 L 05/15/18 08:00 05/15/18 12:00 Temperature 97.3 F L 98.7 F Pulse Rate 70 56 L Respiratory Rate 24 23 Blood Pressure 100/49 L 94/44 L Pulse Oximetry 94 L 92 L Intake & Output 05/14/18 05/15/18 05/15/18 18:59 06:59 18:59 Intake Total 480 / 480 Output Total 600 / 600 600 / 600 Balance -600 / -600 -120 / -120 Intake: Oral 480 / 480 Output: Urine 600 / 600 600 / 600 Other: Date of Last Bowel Movement 05/13/18 <Sydnie Dorado - Last Filed: 05/15/18 14:56> Vital signs: Vital Signs 05/14/18 20:00 05/14/18 21:02 05/14/18 23:48 Temperature 97.5 F L Pulse Rate 62 67 Respiratory Rate 18 18 Blood Pressure 117/71 Pulse Oximetry 92 L 05/15/18 00:00 05/15/18 01:30 05/15/18 03:51 Temperature 97.2 F L Pulse Rate 70 67 Respiratory Rate 18 18 Blood Pressure 140/65 Pulse Oximetry 93 L 05/15/18 04:30 05/15/18 08:00 05/15/18 12:00 Temperature 97.4 F L 97.3 F L 98.7 F Pulse Rate 64 70 56 L Respiratory Rate 19 24 23 Blood Pressure 131/61 100/49 L 94/44 L Pulse Oximetry 93 L 94 L 92 L 05/15/18 16:00 05/15/18 18:20 05/15/18 18:41 Temperature 97.9 F Pulse Rate 70 62 Respiratory Rate 24 Blood Pressure 112/49 L 115/60 Pulse Oximetry 95 Intake & Output 05/14/18 05/15/18 05/15/18 18:59 06:59 18:59 Intake Total 480 / 480 1000 / 1000 Output Total 600 / 600 600 / 600 Balance -600 / -600 -120 / -120 1000 / 1000 Intake: IV 1000 / 1000 LR 1000 mL Inj 1,000 ML @ 30 1000 / 1000 mls/hr IV.SIG .Q24H [facility] Rx#: [id number] Oral 480 / 480 Output: Urine 600 / 600 600 / 600 Other: Date of Last Bowel Movement 05/13/18 <Lee Guardado E - Last Filed: 05/15/18 18:56> Results - Labs CBC & Chem 7: 05/15/18 06:14 05/15/18 06:14 Laboratory Results - last 24 hr 05/14/18 05/15/18 05/15/18 20:25 03:13 06:14 WBC 17.3 H RBC 3.86 L Hgb 8.5 L Hct 27.9 L MCV 72.2 L MCH 22.1 L MCHC 30.6 L RDW 19.3 H Plt Count 322 MPV 6.9 L Sodium Potassium Chloride Carbon Dioxide Anion Gap BUN Creatinine Estimated GFR POC Glucose 211 H 210 H Random Glucose Calcium Total Bilirubin AST ALT Alkaline Phosphatase Total Protein Albumin 05/15/18 05/15/18 05/15/18 06:14 07:48 12:14 WBC RBC Hgb Hct MCV MCH MCHC RDW Plt Count MPV Sodium 136 Potassium 3.3 L Chloride 93 L Carbon Dioxide 35.6 H Anion Gap 7 BUN 22 H Creatinine 1.34 H Estimated GFR 53 L POC Glucose 214 H 252 H Random Glucose 193 H Calcium 8.2 L Total Bilirubin 0.9 AST 20 ALT 59 Alkaline Phosphatase 67 Total Protein 6.1 L Albumin 3.0 L Microbiology 05/12/18 20:54 Blood - Peripheral Aerobic Blood Culture - Preliminary No growth in 3 days 05/12/18 20:54 Blood - Peripheral Anaerobic Blood Culture - Preliminary No growth in 3 days 05/12/18 20:45 Blood - Peripheral Aerobic Blood Culture - Preliminary No growth in 3 days 05/12/18 20:45 Blood - Peripheral Anaerobic Blood Culture - Preliminary No growth in 3 days <Sydnie Dorado - Last Filed: 05/15/18 14:56> - Labs CBC & Chem 7: 05/15/18 06:14 05/15/18 06:14 Laboratory Results - last 24 hr 05/14/18 05/15/18 05/15/18 20:25 03:13 06:14 WBC 17.3 H RBC 3.86 L Hgb 8.5 L Hct 27.9 L MCV 72.2 L MCH 22.1 L MCHC 30.6 L RDW 19.3 H Plt Count 322 MPV 6.9 L Sodium Potassium Chloride Carbon Dioxide Anion Gap BUN Creatinine Estimated GFR POC Glucose 211 H 210 H Random Glucose Calcium Total Bilirubin AST ALT Alkaline Phosphatase Total Protein Albumin 05/15/18 05/15/18 05/15/18 06:14 07:48 12:14 WBC RBC Hgb Hct MCV MCH MCHC RDW Plt Count MPV Sodium 136 Potassium 3.3 L Chloride 93 L Carbon Dioxide 35.6 H Anion Gap 7 BUN 22 H Creatinine 1.34 H Estimated GFR 53 L POC Glucose 214 H 252 H Random Glucose 193 H Calcium 8.2 L Total Bilirubin 0.9 AST 20 ALT 59 Alkaline Phosphatase 67 Total Protein 6.1 L Albumin 3.0 L 05/15/18 17:37 WBC RBC Hgb Hct MCV MCH MCHC RDW Plt Count MPV Sodium Potassium Chloride Carbon Dioxide Anion Gap BUN Creatinine Estimated GFR POC Glucose 206 H Random Glucose Calcium Total Bilirubin AST ALT Alkaline Phosphatase Total Protein Albumin Microbiology 05/12/18 20:54 Blood - Peripheral Aerobic Blood Culture - Preliminary No growth in 3 days 05/12/18 20:54 Blood - Peripheral Anaerobic Blood Culture - Preliminary No growth in 3 days 05/12/18 20:45 Blood - Peripheral Aerobic Blood Culture - Preliminary No growth in 3 days 05/12/18 20:45 Blood - Peripheral Anaerobic Blood Culture - Preliminary No growth in 3 days - Imaging Impressions Abdomen/Pelvis CT 05/15/18 00:00 CONCLUSION: 1. Eventration of the right hemidiaphragm 2. Moderate gaseous distention of the hepatic flexure in the right upper quadrant with a component of this sitting anterior to the liver 3. Gallbladder surgically absent 4. Previous transpedicular lumbar fixation. Shoulder X-Ray 05/15/18 00:00 CONCLUSION: No acute left shoulder abnormality is identified. There is mild osteoarthritis at the acromioclavicular joint. <Lee Guardado E - Last Filed: 05/15/18 18:56> Assessment and Plan (1) GI bleed Status: Acute Code(s): K92.2 - Gastrointestinal hemorrhage, unspecified (2) Anemia Status: Acute Code(s): D64.9 - Anemia, unspecified - Plan 67-year-old overweight male comes into the hospital on 05/12/2018 with symptomatic anemia, melena stools, GI bleed, and falls, syncopal episodes 3 at home over the past week. Current symptoms have been going on off and on for 2 weeks, aggregating symptoms are probably related to Eliquis and Plavix dual anticoagulation for his atrial fib. According to the record patient had positive Hemoccult in the ER setting. Hemoglobin on admission was 7.8 and decreased to 7.4. Patient received 1 unit packed RBCs, PT/INR 1. EGD colonoscopy approximately [address] Harper possible history of polyps and patient notes previous colon resection but unknown timing. Patient denies history of colon cancer but states polyp removed? Eliquis and Plavix are on hold for 05/13/2018. Gastroenterology has been consulted to assist with his care and evaluate his symptoms. EGD colonoscopy has been discussed with patient. When entered the room patient had been given GoLYTELY per hospitalist on admission to drink throughout the evening but patient denies any bowel movement he has drank approximately 60% of the GoLYTELY, but states he will not drink anymore. 05/15/2018 patient's currently resting in the bed awake and alert with some mild anxiety. 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 Results were discussed again with patient and the findings and recommendations. Capsule endoscopy if patient continues to have problems with anemia and unstable hemoglobin patient states he has already had this procedure before. Repeat colonoscopy in one year. Current hemoglobin is 8.5 mildly decreased and WBC count 17.3. Patient continues to complain today of right lower quadrant and right-sided abdominal pain which he states started post colonoscopy yesterday he states the pain does wax and wane but does have a sharp consistency at times. Patient states no bowel movement since colonoscopy prep which is only been 24-30 hours. Family member on the phone discussed again findings of EGD/colonoscopy in the need to have patient evaluated for his Eliquis and Plavix related to his GI bleeds and findings. Patient is high risk for bleeds especially with dual anticoagulant therapy. CT scan without contrast ordered for today to evaluate new abdominal pain and to rule out any new issues. According to the record patient is back on his Plavix dose today. Plan Diet as tolerated per attending CT scan without contrast today to evaluate right lower quadrant and right-sided abdominal pain new pain since colonoscopy. PPI Zofran Bowel regimen Monitor labs and transfuse as necessary Further recommendations to follow Patient was seen per myself and Dr. Guardado, note was written on his behalf <Sydnie Dorado M - Last Filed: 05/15/18 14:56> (1) GI bleed Status: Acute Code(s): K92.2 - Gastrointestinal hemorrhage, unspecified (2) Anemia Status: Acute Code(s): D64.9 - Anemia, unspecified - Attending Attestation Patient seen and examined Agree with above Continue with current supportive care Monitor labs CT of the abdomen is basically unremarkable for any acute events His hemoglobin seems to be dwindling down therefore we will continue to watch closely Patient is high risk for bleeding and he is also high risk for developing more AVMs Further recommendations shall depend on his hospital course <Lee Guardado E - Last Filed: 05/15/18 18:56> <Lee Guardado E - Last Filed: 05/15/18 18:56> (1) GI bleed Qualifiers: GI bleed type/associated pathology: unspecified gastrointestinal hemorrhage type Qualified Code(s): K92.2 - Gastrointestinal hemorrhage, unspecified (2) Anemia Qualifiers: Anemia type: unspecified type Qualified Code(s): D64.9 - Anemia, unspecified
--- NOTE | 2018-05-15 16:29 | XR ---
EXAM DATE: 05/15/2018 4:18 PM EDT AGE/SEX: 67 years / Male INDICATIONS: Patient is having left shoulder pain post fall. CLINICAL DATA: This is the patient's initial encounter. Patient reports that signs and symptoms have been present for 2 days and indicates a pain score of 9/10. MEDICAL/SURGICAL HISTORY: . Congestive heart failure. Diabetes. Chronic obstructive pulmonary d isease. Afib. CAD. Prostate cancer. Colon cancer. Breast cancer. Anticoagulation therapy. Myocardial infarction. Prostatectomy. Appendectomy. Cholecystectomy. Colon resection. Knee surgery. Neck surgery . Shoulder surgery. Back surgery . Prostatectomy. Appendectomy. Cholecystectomy. Colon resection. Kn ee surgery. Neck surgery. Shoulder surgery. Back surgery COMPARISON: [facility], HUMERUS LEFT MIN 2V, 05/12/2018. . FINDINGS: 5 views of the left shoulder demonstrate no fracture or dislocation. Mineralization is within normal limits. Acromioclavicular joint is intact with mild osteoarthritis. No soft tissue abnormality or con cerning radiopaque foreign body is seen. CONCLUSION: No acute left shoulder abnormality is identified. There is mild osteoarthritis at the acromioclavicul ar joint. Electronically signed by: Priyank Morfin MD 05/15/2018 4:28 PM EDT
--- NOTE | 2018-05-15 17:29 | CT ---
EXAM DATE: 05/15/2018 4:36 PM EDT AGE/SEX: 67 years / Male INDICATIONS: Right upper quadrant pain. CLINICAL DATA: This is the patient's initial encounter. Patient reports that signs and symptoms have been present for 1 day and indicates a pain score of 4/10. MEDICAL/SURGICAL HISTORY: Cardiovascular disease. Chronic obstructive pulmonary disease. Diab etes. Breast cancer, prostate cancer, colon cancer. Appendectomy. Cholecystectomy. Prostatectomy. Colon resection. RADIATION DOSE: 26.39 CTDI (mGy) COMPARISON: [facility] [place], [place], CT ABDOMEN & PELVIS W CONTRAST, 01/12/2018. . TECHNIQUE: Multiple contiguous axial images were obtained through the abdomen. Images were obtained using multiple row detector helical technique. Using automated exposure control and adjustment of the mA and/or kV according to patient size, radiation dose was kept as low as reasonably achievable to o btain optimal diagnostic quality images. DICOM format image data is available electronically for rev iew and comparison. Exam is limited by the patient's large body habitus. FINDINGS: Minimal pleural thickening right lung base. There is no pericardial effusion Liver is free of focal defects. Gallbladder surgically absent. Spleen and pancreas appear normal Right and left adrenal glands appear normal Kidneys unremarkable without stone or obstruction There is gas-filled colon in the right upper quadrant. There is moderate eventration of the right hem idiaphragm with liver projected into the chest. There are no inflammatory changes in the mesentery. Moderate vascular calcifications are noted Transpedicular fixation is present in the lower lumbar spine Pelvic contents are unremarkable. CONCLUSION: 1. Eventration of the right hemidiaphragm 2. Moderate gaseous distention of the hepatic flexure in the right upper quadrant with a component o f this sitting anterior to the liver 3. Gallbladder surgically absent 4. Previous transpedicular lumbar fixation. Electronically signed by: Abdon Baires MD 05/15/2018 5:27 PM EDT
[2018-05-16 00:35] LABS: Hematocrit 26.3 % (39.0-51.0); Hemoglobin 8.5 gm/dL (13.0-17.0)
[2018-05-16 00:51] LABS: Calcium 8.3 mg/dL (8.5-10.1); Carbon Dioxide 30.4 meq/L (21.0-32.0)
[2018-05-16] MEDS: Insulin NovoLOG Aspart Correctional Sugar Inj SQ SCH ×5 (06:20→21:07)
[2018-05-16 06:23] LABS: Baso # (Auto) 0.1 th/mm3 (0.0-0.2); Baso % (Auto) 0.7 % (0.0-2.0); Eos # (Auto) 0.1 th/mm3 (0.0-0.4); Eos % (Auto) 0.7 % (0.0-4.0); Hematocrit 30.1 % (39.0-51.0); Hemoglobin 9.1 gm/dL (13.0-17.0); Lymph # (Auto) 3.2 th/mm3 (1.0-4.8); Lymph % (Auto) 17.8 % (9.0-44.0); Mean Corpuscular Hemoglobin 22.2 pg (27.0-34.0); Mean Corpuscular Volume 73.1 fL (80.0-100.0); Mono # (Auto) 1.6 th/mm3 (0.0-0.9); Mono % (Auto) 8.7 % (0.0-8.0); Neut # (Auto) 12.9 th/mm3 (1.8-7.7); Neut % (Auto) 72.1 % (16.0-70.0); Platelet Count 284 th/mm3 (150-450); Red Blood Count 4.12 mil/mm3 (4.50-5.90); Red Cell Distribution Width 19.8 % (11.6-17.2); White Blood Count 17.9 th/mm3 (4.0-11.0)
[2018-05-16 06:32] LABS: Mean Corpuscular HGB Conc 30.3 % (32.0-36.0)
[2018-05-16 06:37] LABS: Calcium 8.3 mg/dL (8.5-10.1); Carbon Dioxide 27.8 meq/L (21.0-32.0); Potassium 3.1 meq/L (3.5-5.1)
[2018-05-16] MEDS: Amiodarone 200 MG Tablet PO SCH (08:20)
[2018-05-16] MEDS: Gabapentin 300 MG Capsule PO SCH (08:20)
[2018-05-16] MEDS: Furosemide 40 MG Tablet PO SCH (08:20)
[2018-05-16] MEDS: Duloxetine 60 MG DR Capsule PO SCH (08:21)
[2018-05-16] MEDS: metOLazone 5 MG Tablet PO SCH (08:21)
[2018-05-16] MEDS: hydroCHLOROthiazide 25 MG Tablet PO SCH (08:22)
[2018-05-16] MEDS: Metoprolol Tartrate 25 MG Tablet PO SCH ×2 (08:23→21:06)
[2018-05-16] MEDS: Lidocaine 5% Patch T-DERMAL SCH (08:23)
--- NOTE | 2018-05-16 11:41 | P.PN ---
Subjective Interval history: Follow-up visit for symptomatic anemia, syncopal episode, A. fib, and CHF. Patient seen and examined this morning after patient suffered what was believed to be a presyncopal episode. Patient was making his way to the bathroom when his legs began to give out, patient also became unresponsive. Patient was helped back to chair. When I go into examined patient he is awake, alert, asking what happened. He denies any pain or discomfort at the moment, denies any dizziness, lightheadedness or chest pain. Blood glucose checked at bedside in the 300s, BP elevated with systolic in the 200s, diastolic in the 90's, O2 saturation stable after 2 L of oxygen applied via nasal cannula. reports that patient had similar episodes yesterday, had also requested to speak to a physician regarding this. Patient is held back to bed, while helping him back to bed he once again has presyncopal episode in the process of sitting on the side of the bed, shaking of the left hand noted. Patient remained lying in bed for several moments, discussed with Dr. Lucas at bedside as well as with nursing staff and . Episode occurred once again when patient was helped back to the side of the bed, during this episode patient did not have any shaking noted, helped back to bed. BP did improve with systolic in the 140s. Patient continues to complain of left shoulder pain and low abdominal "electric pain". Physical Exam Vital signs: Vital Signs 05/15/18 12:00 05/15/18 16:00 05/15/18 18:20 Temperature 98.7 F 97.9 F Pulse Rate 56 L 70 62 Respiratory Rate 23 24 Blood Pressure 94/44 L 112/49 L Pulse Oximetry 92 L 95 05/15/18 18:41 05/15/18 20:00 05/16/18 00:00 Temperature 97.5 F L 98.1 F Pulse Rate 63 74 Respiratory Rate 17 18 Blood Pressure 115/60 90/50 L 122/42 L Pulse Oximetry 92 L 98 05/16/18 04:00 05/16/18 08:32 05/16/18 08:52 Temperature 98.4 F 98.7 F Pulse Rate 75 89 Respiratory Rate 18 18 18 Blood Pressure 114/57 L 105/64 Pulse Oximetry 93 L 95 Intake & Output 05/15/18 05/16/18 05/16/18 18:59 06:59 18:59 Intake Total 1000 / 1000 Output Total 1125 / 1125 Balance 1000 / 1000 -1125 / -1125 Weight 155 kg Intake: IV 1000 / 1000 LR 1000 mL Inj 1,000 ML @ 30 1000 / 1000 mls/hr IV.SIG .Q24H SHAWN Rx#: [id number] Output: Urine 1125 / 1125 Other: Date of Last Bowel Movement 05/13/18 05/14/18 Narrative: GENERAL: Well developed, obese male in no acute distress. SKIN: Warm and dry. HEAD: Normocephalic. EYES: No scleral icterus. No injection or drainage. NECK: Supple, trachea midline. CARDIOVASCULAR: Regular rate and rhythm without murmurs, gallops, or rubs. RESPIRATORY: Breath sounds equal bilaterally. No accessory muscle use. GASTROINTESTINAL: Abdomen soft, non-tender, nondistended. Hypoactive bowel sounds. MUSCULOSKELETAL: No cyanosis, or edema. Right hand third and fourth digit with limited range of motion secondary to pain, small amount of ecchymosis noted on third digit, no edema, capillary refill less than 3 seconds. Left shoulder with anterior tenderness with palpation, no edema, warmth or erythema noted. BACK: Nontender without obvious deformity. No CVA tenderness. Results - Labs CBC & Chem 7: 05/16/18 05:01 05/16/18 05:01 Laboratory Results - last 24 hr 05/15/18 05/15/18 05/15/18 12:14 17:37 21:05 WBC RBC Hgb Hct MCV MCH MCHC RDW Plt Count MPV Neut % (Auto) Lymph % (Auto) Catron % (Auto) Eos % (Auto) Baso % (Auto) Neut # (Auto) Lymph # (Auto) Catron # (Auto) Eos # (Auto) Baso # (Auto) WBC Differential Differential Comment Sodium Potassium Chloride Carbon Dioxide Anion Gap BUN Creatinine Estimated GFR POC Glucose 252 H 206 H 310 H Random Glucose Calcium Magnesium 05/15/18 05/15/18 05/16/18 23:37 23:37 00:28 WBC RBC Hgb 8.5 L Hct 26.3 L MCV MCH MCHC RDW Plt Count MPV Neut % (Auto) Lymph % (Auto) Catron % (Auto) Eos % (Auto) Baso % (Auto) Neut # (Auto) Lymph # (Auto) Catron # (Auto) Eos # (Auto) Baso # (Auto) WBC Differential Differential Comment Sodium 134 L Potassium 3.0 L Chloride 92 L Carbon Dioxide 30.4 Anion Gap 12 BUN 30 H Creatinine 2.18 H Estimated GFR 31 L POC Glucose 249 H Random Glucose 209 H Calcium 8.3 L Magnesium 05/16/18 05/16/18 05/16/18 05:01 05:01 05:01 WBC 17.9 H RBC 4.12 L Hgb 9.1 L Hct 30.1 L MCV 73.1 L MCH 22.2 L MCHC 30.3 L RDW 19.8 H Plt Count 284 MPV 7.0 Neut % (Auto) 72.1 H Lymph % (Auto) 17.8 Catron % (Auto) 8.7 H Eos % (Auto) 0.7 Baso % (Auto) 0.7 Neut # (Auto) 12.9 H Lymph # (Auto) 3.2 Catron # (Auto) 1.6 H Eos # (Auto) 0.1 Baso # (Auto) 0.1 WBC Differential . Differential Comment Auto diff final Sodium 132 L Potassium 3.1 L Chloride 93 L Carbon Dioxide 27.8 Anion Gap 11 BUN 24 H Creatinine 1.59 H Estimated GFR 44 L POC Glucose Random Glucose 161 H Calcium 8.3 L Magnesium 2.3 D 05/16/18 05/16/18 06:00 08:03 WBC RBC Hgb Hct MCV MCH MCHC RDW Plt Count MPV Neut % (Auto) Lymph % (Auto) Catron % (Auto) Eos % (Auto) Baso % (Auto) Neut # (Auto) Lymph # (Auto) Catron # (Auto) Eos # (Auto) Baso # (Auto) WBC Differential Differential Comment Sodium Potassium Chloride Carbon Dioxide Anion Gap BUN Creatinine Estimated GFR POC Glucose 192 H 264 H Random Glucose Calcium Magnesium Microbiology 05/12/18 20:54 Blood - Peripheral Aerobic Blood Culture - Preliminary No growth in 4 days 05/12/18 20:54 Blood - Peripheral Anaerobic Blood Culture - Preliminary No growth in 4 days 05/12/18 20:45 Blood - Peripheral Aerobic Blood Culture - Preliminary No growth in 4 days 05/12/18 20:45 Blood - Peripheral Anaerobic Blood Culture - Preliminary No growth in 4 days - Imaging Impressions Abdomen/Pelvis CT 05/15/18 00:00 CONCLUSION: 1. Eventration of the right hemidiaphragm 2. Moderate gaseous distention of the hepatic flexure in the right upper quadrant with a component of this sitting anterior to the liver 3. Gallbladder surgically absent 4. Previous transpedicular lumbar fixation. Shoulder X-Ray 05/15/18 00:00 CONCLUSION: No acute left shoulder abnormality is identified. There is mild osteoarthritis at the acromioclavicular joint. Assessment and Plan - Assessment (1) Generalized weakness Code(s): R53.1 - Weakness Status: Acute - Plan 67-year-old male with a past medical history significant for atrial fibrillation anticoagulated on Eliquis, diabetes mellitus, coronary artery disease status post CO, CHF (last ejection fraction 55%), COPD and a history of breast, colon and prostate cancers presents to ED on 05/12 due to syncopal episode. Symptomatic anemia/syncope/lower GI bleed H&H 7.8/25.0 Hemoccult positive ED with history of black, tarry stools - Gastroenterology consulted, appreciate recommendations - s/p 1 unit of PRBCs transfused -Continue to hold blood thinners, will need okay from GI to resume aspirin and Plavix -Status post EGD with snare polypectomy and colonoscopy with snare polypectomy and fulguration of AVM's 05/14. Procedure revealed gastric polyps, cecal AVM's, colon polyp and colon diverticulosis -H&H 9.1/30.1--> 8.5/27.9-->9.1/30.1, stable, continue monitoring for black or bloody stools, none thus far. -Lower abdominal pain, GI ordered CT of abd/pelvis: Eventration of right hemidiaphragm, moderate gaseous distention of hepatic flexure in the right upper quadrant with component sitting anterior to the liver, previous transpedicular lumbar fixation, otherwise negative. -Constipation, bowel regimen ordered Syncope. Recurrent presyncopal/syncopal episodes yesterday afternoon and this morning -Cardiology consulted, contact cardiology once again to make him aware of ongoing episodes, appreciate assistance -Loop recorder interrogated, Asuum report noted sinus rhythm with PACs ( phone number [phone]) -2D echo showing EF 5560%, normal LV size, mild to moderate concentric left ventricular hypertrophy, no definitive wall motion abnormalities, moderate mitral annular calcification, mild aortic valve stenosis present -Bilateral carotid ultrasound with less than 50% stenosis -Check bilateral upper extremity ultrasound for possible thoracic outlet -Check EEG -Consult neurology for possible seizures Hyperglycemia/diabetes mellitus - BS continue to be in the 200s-300s. Start Levemir 20untis BID -Sliding-scale insulin -Monitor blood glucose Hypokalemia -k 3.1 this a.m., replace with p.o. - recheck K in the a.m. Atrial fibrillation, chronic -Continue amiodarone/metoprolol -Holding home Eliquis secondary to GI bleed. Discussed with GInara to resume Eliquis, patient high risk for bleeding, continue monitoring closely. CHF/CAD Status post CO - Eliquis on hold due to recent GIB -Continue home medications Left shoulder rotator cuff injury Right finger pain - Right hand x-ray negative for fractures. -X-ray reviewed, no acute abnormality, mild osteoarthritis at the acromioclavicular joint, continue Lidoderm patch. Sleep apnea-attending home CPAP machine -Consult pulmonary for further recommendations. 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 Lucas Discharge Planning: Will need clearance from cardiology and gastroenterology.
--- NOTE | 2018-05-16 14:22 | MB ---
cc: Linda Delgado MD DATE: 05/16/2018 REASONS FOR CONSULTATION: Obstructive sleep apnea and syncopal episodes. DIAGNOSES: 1. The patient is a 67-year-old male with multiple comorbidities, which include obstructive sleep apnea, on CPAP, with 11 cm of pressure at home, being followed by Dr. Kilpatrick, his outpatient commercial loan analyst. 2. Atrial fibrillation, on Eliquis. 3. Diabetes mellitus. 4. Coronary artery disease, status post IL with EF of 55-60%. 5. COPD. 6. Tobacco abuse. HISTORY OF PRESENT ILLNESS: He was admitted to [facility] under hospitalist service on 05/12 for a syncopal episode and symptomatic anemia. He underwent endoscopy and colonoscopy on 05/14/2018, which showed gastric polyps, AVM in the cecum, and diverticulosis. Pulmonary medicine was consulted for history of sleep apnea. The patient states that he saw Dr. Paige last Sunday, and he was hospitalized 2 weeks ago at [facility] for 5 days for shortness of breath and lung infections. He was treated with IV antibiotics and steroids as an outpatient at Dr. Paige's office. The patient reports a productive cough, edema of lower extremities, and shortness of breath with exertion. He denies any wheezing, nausea, vomiting, or abdominal pain. According to the , the patient has been compliant with a CPAP and he uses it every night. On arrival, he had a chest x-ray which showed cardiomegaly without any obvious infiltrates or effusions. In addition, echocardiogram was performed, which showed an EF of 55-60%, normal RV size and function, and a PA systolic pressure of 29 mmHg. He has been seen by cardiology and GI services, and in addition neurology service was consulted for syncopal episodes. When seen, the patient was on room air oxygen with saturation of 95%. LABORATORY DATA: Significant for a persistent leukocytosis with a WBC of 17.9 today and hemoglobin of 9.1. His blood cultures from 05/12/2018 showed no growth to date. PAST MEDICAL HISTORY: Significant for atrial fibrillation - on Eliquis at home, obstructive sleep apnea - on CPAP with 11 singular pressure, diabetes mellitus, coronary artery disease with previous IL, COPD, and history of colon and prostate cancer. PAST SURGICAL HISTORY: Previous prostatectomy, previous colon resection, shoulder surgery, appendectomy, cholecystectomy and back surgeries. ALLERGIES: MULTIPLE WHICH INCLUDE: 1. PRAVASTATIN. 2. ATORVASTATIN. 3. MORPHINE. SOCIAL HISTORY: Ex-smoker, quit smoking 10 years ago, used to smoke 2 packs per day for 20 plus years; nondrinker. CURRENT MEDICATIONS: Include: 1. Hydrochlorothiazide. 2. Insulin. 2. Cozaar. 3. Lopressor. 4. Zaroxolyn. REVIEW OF SYSTEMS: As per HPI. The rest of review of systems unremarkable. PHYSICAL EXAMINATION: GENERAL: A 67-year-old male lying in bed, in no acute respiratory distress. VITAL SIGNS: Temperature 98.7, pulse 89, respiratory rate of 18, blood pressure 105/64 with a MAP of 77 mmHg, saturation 95% on room air. HEENT: Atraumatic, normocephalic. Pupils are equal, round, reactive to light and accommodation. Extraocular muscles intact. Conjunctivae pink. Nonicteric sclerae. Oral mucosa within normal. NECK: Supple. No JVD, adenopathy, or thyromegaly. Trachea in the midline. CARDIOVASCULAR: Regular rate and rhythm. Normal S1, S2. No murmurs, rubs, or gallops noted. PULMONARY: Bilateral equal air entry. No rales or wheezing. ABDOMEN: Soft, obese, nontender, nondistended, positive bowel sounds. EXTREMITIES: No cyanosis or clubbing. Trace edema. NEUROLOGIC: No focal sensory deficit. LABORATORY DATA: Sodium 132, potassium 3.1, chloride 93, CO2 of 27, BUN 24, creatinine 1.59, glucose 161, WBC 17.9, hemoglobin 9.1, hematocrit 30, platelet count 284,000. RADIOGRAPHIC STUDIES: Chest x-ray on arrival showed cardiomegaly without any obvious infiltrates. ASSESSMENT AND PLAN: 1. Acute hypoxemic and hypercapnic respiratory failure. 2. Obesity hypoventilation syndrome. 3. Morbid obesity. 4. Chronic obstructive pulmonary disease. 5. History of tobacco abuse. 6. Leukocytosis. 7. Anemia. 8. Mild acute kidney injury. 9. History of atrial fibrillation, on Eliquis, currently on hold. 10. Diabetes mellitus. 11. Coronary artery disease. 12. Hypertension. RECOMMENDATIONS: 1. Monitor neuro status closely and avoid any sedatives. 2. Oxygen p.r.n. to maintain sats above 92%. 3. Bronchodilators. We will place on DuoNeb q.4 hours plus q.2 hours p.r.n. for shortness of breath. In addition, we will start Symbicort 160/4.5 two puffs b.i.d. 4. Start short course of IV steroids, Solu-Medrol 40 mg IV q.8 hours. 5. We will obtain ABG now. In addition, we will proceed with CT scan of the chest without contrast for further evaluation of pulmonary parenchyma. 6. BiPAP nocturnally and p.r.n. for respiratory distress. Start empiric antibiotics in the form of Rocephin and monitor for signs of infection, which include fever and WBC and obtain sputum culture with Gram stain. We will consult infectious disease for persistent leukocytosis. 7. We will obtain Doppler ultrasound of lower extremity to rule out deep venous thrombosis. 8. Monitor heart rate and blood pressure. Maintain MAP greater than 65 mmHg. Neurology service was consulted regarding syncopal episodes and EEG was just done. 9. Echocardiogram reviewed, which showed an EF of 55-60%, normal LV size and function with a PA systolic pressure of 29 mmHg. 10. Gastrointestinal and deep venous thrombosis prophylaxis per primary team. 11. Further recommendations will be based on hospital course. Thank you for this consultation and allowing us to participate in this patient's care. MD KARLA Curtis/saul , 01:31 PM , 01:45 PM
[2018-05-16] MEDS: MethylPREDNISolone Sod Succinate Inj 40 MG/ML Vial IV.PUSH SCH ×2 (14:35→22:28)
[2018-05-16] MEDS: Budesonide-Formoterol 160/4.5 MCG 6 GM Inhaler INH SCH ×2 (14:35→21:09)
[2018-05-16 14:39] LABS: ABG Base Excess 6.8 mmol/L (-2-2); ABG PCO2 45 mmHg (38-42); ABG PO2 73 mmHg (61-120)
--- NOTE | 2018-05-16 15:37 | CT ---
EXAM DATE: 05/16/2018 3:18 PM EDT AGE/SEX: 67 years / Male INDICATIONS: Cough, shortness of breath. CLINICAL DATA: This is the patient's initial encounter. Patient reports that signs and symptoms have been present for 2 days and indicates a pain score of 2/10. MEDICAL/SURGICAL HISTORY: Cardiovascular disease. Diabetes. Chronic obstructive pulmonary disease . Colon cancer, breast cancer, prostate cancer. None. RADIATION DOSE: 20.56 CTDI (mGy) COMPARISON: [facility], CT CHEST W/ CONTRAST, 03/15/2018. . TECHNIQUE: Multiple contiguous axial images were obtained through the chest without contrast. Image s were obtained in suspended respiration using multiple row detector helical technique. Using automa jarvis exposure control and adjustment of the mA and/or kV according to patient size, radiation dose was kept as low as reasonably achievable to obtain optimal diagnostic quality images. DICOM format imag e data is available electronically for review and comparison. FINDINGS: Lungs: There is minimal infiltrate or atelectasis in the lateral and posterior left lung base. This appears unchanged. Mediastinum: There is good visualization of the great vessels of the middle mediastinum. No evidenc e of mediastinal or hilar adenopathy/mass. Pleurae: Mild lobular pleural thickening present bilaterally which appears unchanged. Axillae: Unremarkable. Bony Structures: Unremarkable. Miscellaneous: The examination was extended to include the upper abdomen, and both adrenal glands ar e normal in size and configuration. CONCLUSION: Stable CT appearance of the chest. Minimal parenchymal opacity at the left base. Electronically signed by: Priyank Wood MD 05/16/2018 3:35 PM EDT
[2018-05-16] MEDS ORDERED: Bisacodyl 10 MG Supp RECTAL PRN (17:31)
--- NOTE | 2018-05-16 17:50 | P.PNGI ---
Subjective Interval history: Pt is resting in bed, still with RLQ pain, had some nausea and vomiting last night, no bleeding reported. Endorses constipation. He had multiple syncopal episodes yesterday and currently being worked up for this, cardiology, pulmonology and neurology consulted <Amanda Whatley - Last Filed: 05/20/18 21:15> Physical Exam Vital signs: Vital Signs 05/16/18 00:00 05/16/18 04:00 05/16/18 08:00 Temperature 98.1 F 98.4 F Pulse Rate 74 75 78 Respiratory Rate 18 18 Blood Pressure 122/42 L 114/57 L Pulse Oximetry 98 93 L 05/16/18 08:32 05/16/18 08:52 05/16/18 12:37 Temperature 98.7 F Pulse Rate 89 Respiratory Rate 18 18 18 Blood Pressure 105/64 Pulse Oximetry 95 05/16/18 16:00 05/16/18 19:49 05/16/18 20:00 Temperature 97.5 F L Pulse Rate 80 81 82 Respiratory Rate 18 17 18 Blood Pressure 123/63 120/56 L Pulse Oximetry 93 L Intake & Output 05/16/18 05/16/18 05/17/18 06:59 18:59 06:59 Intake Total 340 / 340 Output Total 1125 / 1125 Balance -1125 / -1125 340 / 340 Weight 155 kg Intake: IV 100 / 100 Rocephin Inj 1,000 MG In NS Inj 100 / 100 100 ML @ 200 mls/hr IV.SIG Q24H [facility] Rx#:[id number] Oral 240 / 240 Output: Urine 1125 / 1125 Other: # Voids 1 Date of Last Bowel Movement 05/13/18 05/14/18 05/14/18 <Lee Guardado - Last Filed: 05/16/18 22:56> Vital signs: Vital Signs 05/15/18 18:20 05/15/18 18:41 05/15/18 20:00 Temperature 97.5 F L Pulse Rate 62 63 Respiratory Rate 17 Blood Pressure 115/60 90/50 L Pulse Oximetry 92 L 05/16/18 00:00 05/16/18 04:00 05/16/18 08:00 Temperature 98.1 F 98.4 F Pulse Rate 74 75 78 Respiratory Rate 18 18 Blood Pressure 122/42 L 114/57 L Pulse Oximetry 98 93 L 05/16/18 08:32 05/16/18 08:52 05/16/18 12:37 Temperature 98.7 F Pulse Rate 89 Respiratory Rate 18 18 18 Blood Pressure 105/64 Pulse Oximetry 95 Intake & Output 05/15/18 05/16/18 05/16/18 18:59 06:59 18:59 Intake Total 1000 / 1000 100 / 100 Output Total 1125 / 1125 Balance 1000 / 1000 -1125 / -1125 100 / 100 Weight 155 kg Intake: IV 1000 / 1000 100 / 100 LR 1000 mL Inj 1,000 ML @ 30 1000 / 1000 mls/hr IV.SIG .Q24H [facility] Rx#: [id number] Rocephin Inj 1,000 MG In NS Inj 100 / 100 100 ML @ 200 mls/hr IV.SIG Q24H [facility] Rx#:[id number] Output: Urine 1125 / 1125 Other: Date of Last Bowel Movement 05/13/18 05/14/18 - Constitutional no acute distress - Routine HEENT Exam Head: Present: normocephalic - Routine Respiratory Exam Present: CTA bilaterally - Routine Cardiovascular Exam Present: RRR - Routine Abdominal Exam Present: soft, normoactive bowel sounds, tenderness, distended Comments: obese - Routine Extremities Exam Present: edema. Absent: cyanosis - Routine Skin Exam Present: intact, dry - Routine Neurological Exam Present: alert, oriented X3 <AmmookieHemantla - Last Filed: 05/20/18 21:15> Results - Labs CBC & Chem 7: 05/16/18 05:01 05/16/18 05:01 Laboratory Results - last 24 hr 05/15/18 05/15/18 05/16/18 23:37 23:37 00:28 WBC RBC Hgb 8.5 L Hct 26.3 L MCV MCH MCHC RDW Plt Count MPV Neut % (Auto) Lymph % (Auto) [place] % (Auto) Eos % (Auto) Baso % (Auto) Neut # (Auto) Lymph # (Auto) [place] # (Auto) Eos # (Auto) Baso # (Auto) WBC Differential Differential Comment Puncture Site Patient Temperature O2 Saturation ABG pH ABG pCO2 ABG pO2 ABG HCO3 ABG O2 Content ABG Base Excess ABG Methemoglobin Christian Test Hemoglobin Carboxyhemoglobin Inspired O2 Critical Value Sodium 134 L Potassium 3.0 L Chloride 92 L Carbon Dioxide 30.4 Anion Gap 12 BUN 30 H Creatinine 2.18 H Estimated GFR 31 L POC Glucose 249 H Random Glucose 209 H Calcium 8.3 L Magnesium 05/16/18 05/16/18 05/16/18 05:01 05:01 05:01 WBC 17.9 H RBC 4.12 L Hgb 9.1 L Hct 30.1 L MCV 73.1 L MCH 22.2 L MCHC 30.3 L RDW 19.8 H Plt Count 284 MPV 7.0 Neut % (Auto) 72.1 H Lymph % (Auto) 17.8 [place] % (Auto) 8.7 H Eos % (Auto) 0.7 Baso % (Auto) 0.7 Neut # (Auto) 12.9 H Lymph # (Auto) 3.2 [place] # (Auto) 1.6 H Eos # (Auto) 0.1 Baso # (Auto) 0.1 WBC Differential . Differential Comment Auto diff final Puncture Site Patient Temperature O2 Saturation ABG pH ABG pCO2 ABG pO2 ABG HCO3 ABG O2 Content ABG Base Excess ABG Methemoglobin Christian Test Hemoglobin Carboxyhemoglobin Inspired O2 Critical Value Sodium 132 L Potassium 3.1 L Chloride 93 L Carbon Dioxide 27.8 Anion Gap 11 BUN 24 H Creatinine 1.59 H Estimated GFR 44 L POC Glucose Random Glucose 161 H Calcium 8.3 L Magnesium 2.3 D 05/16/18 05/16/18 05/16/18 06:00 08:03 11:56 WBC RBC Hgb Hct MCV MCH MCHC RDW Plt Count MPV Neut % (Auto) Lymph % (Auto) [place] % (Auto) Eos % (Auto) Baso % (Auto) Neut # (Auto) Lymph # (Auto) [place] # (Auto) Eos # (Auto) Baso # (Auto) WBC Differential Differential Comment Puncture Site Patient Temperature O2 Saturation ABG pH ABG pCO2 ABG pO2 ABG HCO3 ABG O2 Content ABG Base Excess ABG Methemoglobin Christian Test Hemoglobin Carboxyhemoglobin Inspired O2 Critical Value Sodium Potassium Chloride Carbon Dioxide Anion Gap BUN Creatinine Estimated GFR POC Glucose 192 H 264 H 391 H Random Glucose Calcium Magnesium 05/16/18 05/16/18 05/16/18 14:28 17:14 20:35 WBC RBC Hgb Hct MCV MCH MCHC RDW Plt Count MPV Neut % (Auto) Lymph % (Auto) [place] % (Auto) Eos % (Auto) Baso % (Auto) Neut # (Auto) Lymph # (Auto) [place] # (Auto) Eos # (Auto) Baso # (Auto) WBC Differential Differential Comment Puncture Site Left radial Patient Temperature 98.6 O2 Saturation 90 ABG pH 7.45 H ABG pCO2 45 H ABG pO2 73 ABG HCO3 31 H ABG O2 Content 10.9 L ABG Base Excess 6.8 H ABG Methemoglobin 1.3 Christian Test Present Hemoglobin 8.5 L Carboxyhemoglobin 2.9 Inspired O2 21 Critical Value No Sodium Potassium Chloride Carbon Dioxide Anion Gap BUN Creatinine Estimated GFR POC Glucose 340 H 383 H Random Glucose Calcium Magnesium Microbiology 05/12/18 20:54 Blood - Peripheral Aerobic Blood Culture - Preliminary No growth in 4 days 05/12/18 20:54 Blood - Peripheral Anaerobic Blood Culture - Preliminary No growth in 4 days 05/12/18 20:45 Blood - Peripheral Aerobic Blood Culture - Preliminary No growth in 4 days 05/12/18 20:45 Blood - Peripheral Anaerobic Blood Culture - Preliminary No growth in 4 days - Imaging Impressions Abdomen X-Ray 05/16/18 00:00 CONCLUSION: No disproportionate dilated loops of small or large bowel. Limited quality exam. Head CT 05/16/18 00:00 CONCLUSION: 1. No acute findings in the brain. . Venous Doppler Study 05/16/18 00:00 CONCLUSION: 1. The study is negative for bilateral upper extremity deep venous thrombosis. Venous Doppler Study 05/16/18 00:00 CONCLUSION: 1. The study is negative for bilateral lower extremity deep venous thrombosis. Chest CT 05/16/18 13:09 CONCLUSION: Stable CT appearance of the chest. Minimal parenchymal opacity at the left base. <Lee Guardado E - Last Filed: 05/16/18 22:56> - Labs CBC & Chem 7: 05/19/18 20:08 05/19/18 20:08 Laboratory Results - last 24 hr 05/15/18 05/15/18 05/15/18 17:37 21:05 23:37 WBC RBC Hgb Hct MCV MCH MCHC RDW Plt Count MPV Neut % (Auto) Lymph % (Auto) [place] % (Auto) Eos % (Auto) Baso % (Auto) Neut # (Auto) Lymph # (Auto) [place] # (Auto) Eos # (Auto) Baso # (Auto) WBC Differential Differential Comment Puncture Site Patient Temperature O2 Saturation ABG pH ABG pCO2 ABG pO2 ABG HCO3 ABG O2 Content ABG Base Excess ABG Methemoglobin Christian Test Hemoglobin Carboxyhemoglobin Inspired O2 Critical Value Sodium 134 L Potassium 3.0 L Chloride 92 L Carbon Dioxide 30.4 Anion Gap 12 BUN 30 H Creatinine 2.18 H Estimated GFR 31 L POC Glucose 206 H 310 H Random Glucose 209 H Calcium 8.3 L Magnesium 05/15/18 05/16/18 05/16/18 23:37 00:28 05:01 WBC RBC Hgb 8.5 L Hct 26.3 L MCV MCH MCHC RDW Plt Count MPV Neut % (Auto) Lymph % (Auto) [place] % (Auto) Eos % (Auto) Baso % (Auto) Neut # (Auto) Lymph # (Auto) [place] # (Auto) Eos # (Auto) Baso # (Auto) WBC Differential Differential Comment Puncture Site Patient Temperature O2 Saturation ABG pH ABG pCO2 ABG pO2 ABG HCO3 ABG O2 Content ABG Base Excess ABG Methemoglobin Christian Test Hemoglobin Carboxyhemoglobin Inspired O2 Critical Value Sodium 132 L Potassium 3.1 L Chloride 93 L Carbon Dioxide 27.8 Anion Gap 11 BUN 24 H Creatinine 1.59 H Estimated GFR 44 L POC Glucose 249 H Random Glucose 161 H Calcium 8.3 L Magnesium 05/16/18 05/16/18 05/16/18 05:01 05:01 06:00 WBC 17.9 H RBC 4.12 L Hgb 9.1 L Hct 30.1 L MCV 73.1 L MCH 22.2 L MCHC 30.3 L RDW 19.8 H Plt Count 284 MPV 7.0 Neut % (Auto) 72.1 H Lymph % (Auto) 17.8 [place] % (Auto) 8.7 H Eos % (Auto) 0.7 Baso % (Auto) 0.7 Neut # (Auto) 12.9 H Lymph # (Auto) 3.2 [place] # (Auto) 1.6 H Eos # (Auto) 0.1 Baso # (Auto) 0.1 WBC Differential . Differential Comment Auto diff final Puncture Site Patient Temperature O2 Saturation ABG pH ABG pCO2 ABG pO2 ABG HCO3 ABG O2 Content ABG Base Excess ABG Methemoglobin Christian Test Hemoglobin Carboxyhemoglobin Inspired O2 Critical Value Sodium Potassium Chloride Carbon Dioxide Anion Gap BUN Creatinine Estimated GFR POC Glucose 192 H Random Glucose Calcium Magnesium 2.3 D 05/16/18 05/16/18 05/16/18 08:03 11:56 14:28 WBC RBC Hgb Hct MCV MCH MCHC RDW Plt Count MPV Neut % (Auto) Lymph % (Auto) [place] % (Auto) Eos % (Auto) Baso % (Auto) Neut # (Auto) Lymph # (Auto) [place] # (Auto) Eos # (Auto) Baso # (Auto) WBC Differential Differential Comment Puncture Site Left radial Patient Temperature 98.6 O2 Saturation 90 ABG pH 7.45 H ABG pCO2 45 H ABG pO2 73 ABG HCO3 31 H ABG O2 Content 10.9 L ABG Base Excess 6.8 H ABG Methemoglobin 1.3 Christian Test Present Hemoglobin 8.5 L Carboxyhemoglobin 2.9 Inspired O2 21 Critical Value No Sodium Potassium Chloride Carbon Dioxide Anion Gap BUN Creatinine Estimated GFR POC Glucose 264 H 391 H Random Glucose Calcium Magnesium 05/16/18 17:14 WBC RBC Hgb Hct MCV MCH MCHC RDW Plt Count MPV Neut % (Auto) Lymph % (Auto) [place] % (Auto) Eos % (Auto) Baso % (Auto) Neut # (Auto) Lymph # (Auto) [place] # (Auto) Eos # (Auto) Baso # (Auto) WBC Differential Differential Comment Puncture Site Patient Temperature O2 Saturation ABG pH ABG pCO2 ABG pO2 ABG HCO3 ABG O2 Content ABG Base Excess ABG Methemoglobin Christian Test Hemoglobin Carboxyhemoglobin Inspired O2 Critical Value Sodium Potassium Chloride Carbon Dioxide Anion Gap BUN Creatinine Estimated GFR POC Glucose 340 H Random Glucose Calcium Magnesium Microbiology 05/12/18 20:54 Blood - Peripheral Aerobic Blood Culture - Preliminary No growth in 4 days 05/12/18 20:54 Blood - Peripheral Anaerobic Blood Culture - Preliminary No growth in 4 days 05/12/18 20:45 Blood - Peripheral Aerobic Blood Culture - Preliminary No growth in 4 days 05/12/18 20:45 Blood - Peripheral Anaerobic Blood Culture - Preliminary No growth in 4 days - Imaging Impressions Chest CT 05/16/18 13:09 CONCLUSION: Stable CT appearance of the chest. Minimal parenchymal opacity at the left base. Impressions Abdomen/Pelvis CT 05/15/18 00:00 CONCLUSION: 1. Eventration of the right hemidiaphragm 2. Moderate gaseous distention of the hepatic flexure in the right upper quadrant with a component of this sitting anterior to the liver 3. Gallbladder surgically absent 4. Previous transpedicular lumbar fixation. Shoulder X-Ray 05/15/18 00:00 CONCLUSION: No acute left shoulder abnormality is identified. There is mild osteoarthritis at the acromioclavicular joint. Chest CT 05/16/18 13:09 CONCLUSION: Stable CT appearance of the chest. Minimal parenchymal opacity at the left base. <Amanda Whatley - Last Filed: 05/20/18 21:15> Assessment and Plan (1) GI bleed Status: Acute Code(s): K92.2 - Gastrointestinal hemorrhage, unspecified (2) Anemia Status: Acute Code(s): D64.9 - Anemia, unspecified - Attending Attestation Patient seen and examined Agree with above Continue with current supportive care Monitor lab <Lee Guardado - Last Filed: 05/16/18 22:56> (1) GI bleed Status: Acute Code(s): K92.2 - Gastrointestinal hemorrhage, unspecified (2) Anemia Status: Acute Code(s): D64.9 - Anemia, unspecified - Plan 67-year-old overweight male comes into the hospital on 05/12/2018 with symptomatic anemia, melena stools, GI bleed, and falls, syncopal episodes 3 at home over the past week. Current symptoms have been going on off and on for 2 weeks, aggregating symptoms are probably related to Eliquis and Plavix dual anticoagulation for his atrial fib. According to the record patient had positive Hemoccult in the ER setting. Hemoglobin on admission was 7.8 and decreased to 7.4. Patient received 1 unit packed RBCs, PT/INR 1. EGD colonoscopy approximately [address] Harper possible history of polyps and patient notes previous colon resection but unknown timing. Patient denies history of colon cancer but states polyp removed? Eliquis and Plavix are on hold for 05/13/2018. Gastroenterology has been consulted to assist with his care and evaluate his symptoms. EGD colonoscopy has been discussed with patient. When entered the room patient had been given GoLYTELY per hospitalist on admission to drink throughout the evening but patient denies any bowel movement he has drank approximately 60% of the GoLYTELY, but states he will not drink anymore. 05/15/2018 patient's currently resting in the bed awake and alert with some mild anxiety. 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 Results were discussed again with patient and the findings and recommendations. Capsule endoscopy if patient continues to have problems with anemia and unstable hemoglobin patient states he has already had this procedure before. Repeat colonoscopy in one year. Current hemoglobin is 8.5 mildly decreased and WBC count 17.3. Patient continues to complain today of right lower quadrant and right-sided abdominal pain which he states started post colonoscopy yesterday he states the pain does wax and wane but does have a sharp consistency at times. Patient states no bowel movement since colonoscopy prep which is only been 24-30 hours. Family member on the phone discussed again findings of EGD/colonoscopy in the need to have patient evaluated for his Eliquis and Plavix related to his GI bleeds and findings. Patient is high risk for bleeds especially with dual anticoagulant therapy. CT scan without contrast ordered for today to evaluate new abdominal pain and to rule out any new issues. According to the record patient is back on his Plavix dose today. 03/16/18 Pt is resting in bed, still with RLQ pain, had some nausea and vomiting last night, no bleeding reported. Endorses constipation. He had multiple syncopal episodes yesterday and currently being worked up for this, cardiology, pulmonology and neurology consulted hgb is improving. Abdomen/Pelvis CT 05/15/18 1. Eventration of the right hemidiaphragm 2. Moderate gaseous distention of the hepatic flexure in the right upper quadrant with a component of this sitting anterior to the liver 3. Gallbladder surgically absent 4. Previous transpedicular lumbar fixation. Plan Diet as tolerated per attending Discussed with [employer] Ms. Mcnulty to start laxatives KUB in the am OK to go back on anticoagulants but he is high risk for bleed Consider CE as an op PPI Zofran Monitor labs and transfuse as necessary Further recommendations to follow Patient was seen per myself and Dr. Guardado, note was written on his behalf <Amanda Whatley - Last Filed: 05/20/18 21:15> <Lee Guardado - Last Filed: 05/16/18 22:56> (1) GI bleed Qualifiers: GI bleed type/associated pathology: unspecified gastrointestinal hemorrhage type Qualified Code(s): K92.2 - Gastrointestinal hemorrhage, unspecified (2) Anemia Qualifiers: Anemia type: unspecified type Qualified Code(s): D64.9 - Anemia, unspecified <Amanda Whatley - Last Filed: 05/20/18 21:15> (1) GI bleed Qualifiers: GI bleed type/associated pathology: unspecified gastrointestinal hemorrhage type Qualified Code(s): K92.2 - Gastrointestinal hemorrhage, unspecified (2) Anemia Qualifiers: Anemia type: unspecified type Qualified Code(s): D64.9 - Anemia, unspecified
--- NOTE | 2018-05-16 18:47 | XR ---
EXAM DATE: 05/16/2018 6:32 PM EDT AGE/SEX: 67 years / Male INDICATIONS: Constipation and abdominal pain. CLINICAL DATA: This is the patient's initial encounter. Patient reports that signs and symptoms have been present for 2 days and indicates a pain score of 10/10. MEDICAL/SURGICAL HISTORY: . Cardiovascular disease. Diabetes. Chronic obstructive pulmonary dis ease. Colon cancer, breast cancer, prostate cancer. Colon resection. Cholecystectomy. Appendectomy . COMPARISON: [facility], XR ABDOMEN KUB, 12/04/2017. . FINDINGS: Limited quality examination due to metallic artifacts from the devices on the bed. There is gas in l oops of small and large bowel, similar in appearance to prior examination. Hardware in the lower lumb ar region. The visualized lower lungs are clear. CONCLUSION: No disproportionate dilated loops of small or large bowel. Limited quality exam. Electronically signed by: Sumeet Patel MD 05/16/2018 6:46 PM EDT
[2018-05-16] MEDS: levETIRAcetam 500 MG Tablet PO SCH (20:57)
[2018-05-16] MEDS: Senna/Docusate Sodium 8.6/50 MG Tablet PO SCH (20:57)
[2018-05-16] MEDS: Insulin Detemir Inj 1,000 UNIT/10 ML Vial SQ SCH (21:08)
--- NOTE | 2018-05-16 21:13 | MB ---
cc: Segundo Nichols MD, PhD DATE: 05/16/2018 REASON FOR CONSULTATION: Rule out seizure. HISTORY OF PRESENT ILLNESS: Sumeet is a pleasant 67-year-old man who has had 3 episodes of loss of consciousness, a couple have occurred while he was up walking to the bathroom. He states his vision suddenly whites out, he becomes tremulous and loses consciousness. He had 1 episode while in the bed; however, supine. He does have a history of atrial fibrillation, fully anticoagulated on Eliquis. He has had a loop recorder in. The loop recorder was interrogated during these episodes, apparently normal sinus rhythm. No arrhythmias identified. He has no history of seizures. PAST MEDICAL HISTORY: Remarkable for atrial fibrillation, diabetes, coronary artery disease, history of [place], COPD, colon and prostate cancer. CURRENT MEDICATIONS: Albuterol nebulizer, amiodarone 200 mg daily, amlodipine 5 mg daily, Eliquis 5 mg, Baby Aspirin 81 mg daily, atorvastatin 10 mg daily, Dulcolax suppository, ceftriaxone, Plavix 75 mg daily, Cymbalta 60 mg daily, Neurontin 600 mg b.i.d. NEUROLOGIC EXAMINATION: VITAL SIGNS: Blood pressure is 123/63 supine, pulse 80, respiratory rate is 18, temperature is 97.5 degrees. Higher cortical function is normal. Cranial nerves are intact. Motor exam: No focal deficits. He has normal strength in all major groups in both upper and lower extremities. There is no drift. Fine motor skills are normal. Reflexes are symmetric. CT brain on the : No acute change present. He had a carotid ultrasound done and that shows less than 50% stenosis bilaterally. Echocardiogram: EF 55% to 60%, normal left ventricular size, mild to moderate concentric LVH, no definite wall motion abnormality. Mild aortic valve sclerosis is present. EEG pending. LABORATORY DATA: The white count 19,300, hemoglobin 7.4, hematocrit 25%, platelet count 432,000 on the . Today, the hemoglobin was 9.1, hematocrit 30.1%. PT 10, INR 1, APTT 18.8. Sodium is 132, potassium 3.1, chloride 93, CO2 27.8, BUN is 24, creatinine 1.59. GFR is 44. IMPRESSION: Possible seizure. Vertebrobasilar transient ischemic attack also in the differential, although he is already fully anticoagulated. RECOMMENDATIONS: Will start low-dose Keppra for the possibility of seizure activity. We cannot do an MRI because he has got a loop recorder and we cannot do a CTA of the brain with the elevated creatinine. I would like to repeat a head CT, however. Segundo Nichols MD, PhD DEBBIE/[email or web address]/livan , 08:01 PM , 08:09 PM
--- NOTE | 2018-05-16 21:53 | US ---
EXAM DATE: 05/16/2018 9:46 PM EDT AGE/SEX: 67 years / Male INDICATIONS: Leg swelling. CLINICAL DATA: This is the patient's initial encounter. Patient reports that signs and symptoms have been present for 1 day and indicates a pain score of 2/10. MEDICAL/SURGICAL HISTORY: Diabetes. Atrial fibrillation. CAD. Breast cancer. Colon cancer. Pros grayson cancer. COPD. Syncope. Sleep apnea. Prostatectomy. Appendectomy. Cholecystectomy. Atrial fib rillation. CAD. Breast cancer. Colon cancer. Prostate cancer. COPD. Syncope. Sleep apnea. COMPARISON: [facility] [place], 02/22/2018. . TECHNIQUE: Venous ultrasound of both lower extremities was performed from the inguinal ligament to t he proximal calf. Real-time, color Doppler and spectral tracing, compression and augmentation techni ques were used. FINDINGS: Right Leg: Normal compression of the deep venous system from the inguinal region to the proximal anatoly f. No echogenic clot is seen. Normal response of the venous system to augmentation and respiration. Left Leg: Normal compression of the deep venous system from the inguinal region to the proximal calf . No echogenic clot is seen. Normal response of the venous system to augmentation and respiration. Other: None. CONCLUSION: 1. The study is negative for bilateral lower extremity deep venous thrombosis. Electronically signed by: Sumeet Patel MD 05/16/2018 9:52 PM EDT
--- NOTE | 2018-05-16 21:53 | US ---
EXAM DATE: 05/16/2018 9:47 PM EDT AGE/SEX: 67 years / Male INDICATIONS: Bilateral arm swelling. CLINICAL DATA: This is the patient's initial encounter. Patient reports that signs and symptoms have been present for 1 day and indicates a pain score of 2/10. MEDICAL/SURGICAL HISTORY: Diabetes. Atrial fibrillation. CAD. Breast cancer. Colon cancer. Pros grayson cancer. COPD. Syncope. Sleep apnea. Prostatectomy. Appendectomy. Cholecystectomy. Knee surge ry. Neck surgery. Shoulder surgery. Colon resection. Back surgery. COMPARISON: No prior exams available for comparison. FINDINGS: Right Upper Extremity: The vessels are compressible and augmentation response is documented. No fill ing defects are seen. The flow is phasic with respiration. Left Upper Extremity: The vessels are compressible and augmentation response is documented. No filli ng defects are seen. The flow is phasic with respiration. Other: None. CONCLUSION: 1. The study is negative for bilateral upper extremity deep venous thrombosis. Electronically signed by: Sumeet Patel MD 05/16/2018 9:51 PM EDT
--- NOTE | 2018-05-16 22:08 | CT ---
EXAM DATE: 05/16/2018 10:05 PM EDT AGE/SEX: 67 years / Male INDICATIONS: Seizure. CLINICAL DATA: This is the patient's initial encounter. Patient reports that signs and symptoms have been present for 1 day and indicates a pain score of 0/10. MEDICAL/SURGICAL HISTORY: . Congestive heart failure. Diabetes. Chronic obstructive pulmonary disea se. Afib. CAD. Prostate cancer. Colon cancer. Breast cancer. Anticoagulation therapy. Myocardial infa rction . Prostatectomy. Appendectomy. Cholecystectomy. Colon resection. Knee surgery. Neck surgery. Shoulder surgery. Back surgery RADIATION DOSE: 40.47 CTDI (mGy) ; Patient motion [place] [facility] [place]. . TECHNIQUE: CT of the head without contrast. Using automated exposure control and adjustment of the mA and/or kV according to patient size, radiation dose was kept as low as reasonably achievable to ob tain optimal diagnostic quality images. DICOM format image data is available electronically for revi ew and comparison. FINDINGS: Cerebrum: The ventricles are normal for age. No evidence of midline shift, mass lesion, hemorrhage or acute infarction. No extraaxial fluid collections are seen. Posterior Fossa: The cerebellum and brainstem are intact. The 4th ventricle is midline. The cerebe llopontine angle is unremarkable. Extracranial: The visualized portion of the orbits is intact. Skull: The calvaria is intact. No evidence of skull fracture. CONCLUSION: 1. No acute findings in the brain. . Electronically signed by: Sumeet Patel MD 05/16/2018 10:07 PM EDT
--- NOTE | 2018-05-17 00:40 | MG ---
cc: Kal Lange MD ELECTROENCEPHALOGRAM RECORD NUMBER: [id number] A 5-7 Hz posterior rhythm, 20-40 microvolts, frontal slowing, followed by generalized slowing and slow eye movements, delta appears suggestive of drowsy state and stage I sleep. Frequent arousals out of sleep. Reasonably good incremental background, good EEG reactivity and variability. Reduced driving with photic stimulation. Single lead EKG showing sinus rhythm. INTERPRETATION: Mild encephalopathy in sleep state. Clinical correlation. Kal Lange MD MG/sv/ll , 10:06 PM , 10:12 PM
[2018-05-17] MEDS: Insulin NovoLOG Aspart Correctional Sugar Inj SQ SCH ×5 (02:39→21:54)
[2018-05-17 04:50] LABS: Baso % (Auto) 0.2 % (0.0-2.0); Hematocrit 28.7 % (39.0-51.0); Hemoglobin 8.8 gm/dL (13.0-17.0); Lymph # (Auto) 0.9 th/mm3 (1.0-4.8); Mean Corpuscular Hemoglobin 22.4 pg (27.0-34.0); Mean Corpuscular Volume 73.2 fL (80.0-100.0); Mean Platelet Volume 6.8 fL (7.0-11.0); Mono # (Auto) 0.2 th/mm3 (0.0-0.9); Mono % (Auto) 1.5 % (0.0-8.0); Neut # (Auto) 14.4 th/mm3 (1.8-7.7); Neut % (Auto) 92.3 % (16.0-70.0); Platelet Count 257 th/mm3 (150-450); Red Blood Count 3.92 mil/mm3 (4.50-5.90); Red Cell Distribution Width 20.6 % (11.6-17.2); White Blood Count 15.6 th/mm3 (4.0-11.0)
[2018-05-17 04:54] LABS: Mean Corpuscular HGB Conc 30.7 % (32.0-36.0)
[2018-05-17] MEDS: MethylPREDNISolone Sod Succinate Inj 40 MG/ML Vial IV.PUSH SCH ×2 (05:10→17:40)
--- NOTE | 2018-05-17 08:59 | P.PNGI ---
Subjective Interval history: Patient resting in the bed on his back encourage patient to turn from side to side and to increase some of his activity in the bed is much as possible Current hemoglobin was 9.1 now 8.8 but no obvious bleeding noted. WBC count decreased to 15.6 KUB today, still has mild abdominal bloating <Sydnie Dorado - Last Filed: 05/17/18 16:20> Physical Exam Vital signs: Vital Signs 05/16/18 12:37 05/16/18 16:00 05/16/18 19:49 Temperature 97.5 F L Pulse Rate 80 81 Respiratory Rate 18 18 17 Blood Pressure 123/63 Pulse Oximetry 93 L 05/16/18 20:00 05/17/18 00:00 05/17/18 00:05 Temperature 97.7 F Pulse Rate 80 87 84 Respiratory Rate 18 18 Blood Pressure 120/56 L 110/76 Pulse Oximetry 96 05/17/18 04:00 05/17/18 08:00 05/17/18 08:28 Temperature 97.3 F L 98.1 F Pulse Rate 82 81 87 Respiratory Rate 18 18 15 Blood Pressure 127/71 144/63 H Pulse Oximetry 93 L 96 Intake & Output 05/16/18 05/17/18 05/17/18 18:59 06:59 18:59 Intake Total 340 / 340 Output Total 3250 / 3250 Balance 340 / 340 -3250 / -3250 Weight 152.2 kg Intake: IV 100 / 100 Rocephin Inj 1,000 MG In NS Inj 100 / 100 100 ML @ 200 mls/hr IV.SIG Q24H [facility] Rx#:[id number] Oral 240 / 240 Output: Urine 3250 / 3250 Other: # Voids 1 Date of Last Bowel Movement 05/14/18 05/14/18 05/14/18 - Constitutional no acute distress, morbidly obese - Routine HEENT Exam Head: Present: normocephalic ENT: Present: mucous membranes moist - Routine Neck Exam Present: supple - Routine Respiratory Exam Present: accessory muscle use (Low volumes but no acute shortness of breath at rest) - Routine Cardiovascular Exam Present: S1, S2 (Distant) - Routine Abdominal Exam Present: distended (Round, tympanic, soft bowel sounds, abdominal pressure discomfort no acute pain) - Routine Skin Exam Present: intact - Routine Neurological Exam Present: alert (Awake, ) <EstradaSydnie M - Last Filed: 05/17/18 16:20> Vital signs: Vital Signs 05/17/18 20:00 05/18/18 00:00 05/18/18 01:46 Temperature 98.2 F 98.3 F Pulse Rate 77 68 Respiratory Rate 19 17 17 Blood Pressure 117/56 L 125/69 Pulse Oximetry 92 L 93 L 05/18/18 04:00 05/18/18 08:00 05/18/18 08:32 Temperature 98.4 F 97.9 F Pulse Rate 68 83 68 Respiratory Rate 17 18 16 Blood Pressure 118/55 L 137/60 Pulse Oximetry 93 L 91 L 05/18/18 11:21 05/18/18 11:53 Temperature 97.8 F Pulse Rate 59 L 85 Respiratory Rate 16 19 Blood Pressure 111/53 L Pulse Oximetry 96 Intake & Output 05/17/18 05/18/18 05/18/18 18:59 06:59 18:59 Intake Total 840 / 840 Output Total 1400 / 1400 Balance -560 / -560 Weight 152.4 kg Intake: IV 100 / 100 Rocephin Inj 1,000 MG In NS Inj 100 / 100 100 ML @ 200 mls/hr IV.SIG Q24H [facility] Rx#:[id number] Oral 240 / 240 Other 500 / 500 Output: Urine 1400 / 1400 Other: Other Intake Source Saline Solution # Voids 1 Date of Last Bowel Movement 05/14/18 05/17/18 <Lee Guardado - Last Filed: 05/18/18 12:28> Results - Labs CBC & Chem 7: 05/17/18 03:23 05/17/18 03:23 Laboratory Results - last 24 hr 05/16/18 05/16/18 05/16/18 11:56 14:28 17:14 WBC RBC Hgb Hct MCV MCH MCHC RDW Plt Count MPV Neut % (Auto) Lymph % (Auto) [place] % (Auto) Eos % (Auto) Baso % (Auto) Neut # (Auto) Lymph # (Auto) [place] # (Auto) Eos # (Auto) Baso # (Auto) WBC Differential Differential Comment Puncture Site Left radial Patient Temperature 98.6 O2 Saturation 90 ABG pH 7.45 H ABG pCO2 45 H ABG pO2 73 ABG HCO3 31 H ABG O2 Content 10.9 L ABG Base Excess 6.8 H ABG Methemoglobin 1.3 Christian Test Present Hemoglobin 8.5 L Carboxyhemoglobin 2.9 Inspired O2 21 Critical Value No Potassium POC Glucose 391 H 340 H 05/16/18 05/17/18 05/17/18 20:35 02:34 03:23 WBC 15.6 H RBC 3.92 L Hgb 8.8 L Hct 28.7 L MCV 73.2 L MCH 22.4 L MCHC 30.7 L RDW 20.6 H Plt Count 257 MPV 6.8 L Neut % (Auto) 92.3 H Lymph % (Auto) 6.0 L [place] % (Auto) 1.5 Eos % (Auto) 0.0 Baso % (Auto) 0.2 Neut # (Auto) 14.4 H Lymph # (Auto) 0.9 L [place] # (Auto) 0.2 Eos # (Auto) 0.0 Baso # (Auto) 0.0 WBC Differential . Differential Comment Auto diff final Puncture Site Patient Temperature O2 Saturation ABG pH ABG pCO2 ABG pO2 ABG HCO3 ABG O2 Content ABG Base Excess ABG Methemoglobin Christian Test Hemoglobin Carboxyhemoglobin Inspired O2 Critical Value Potassium POC Glucose 383 H 377 H 05/17/18 05/17/18 03:23 08:32 WBC RBC Hgb Hct MCV MCH MCHC RDW Plt Count MPV Neut % (Auto) Lymph % (Auto) [place] % (Auto) Eos % (Auto) Baso % (Auto) Neut # (Auto) Lymph # (Auto) [place] # (Auto) Eos # (Auto) Baso # (Auto) WBC Differential Differential Comment Puncture Site Patient Temperature O2 Saturation ABG pH ABG pCO2 ABG pO2 ABG HCO3 ABG O2 Content ABG Base Excess ABG Methemoglobin Christian Test Hemoglobin Carboxyhemoglobin Inspired O2 Critical Value Potassium 4.0 D POC Glucose 401 H Microbiology 05/12/18 20:54 Blood - Peripheral Aerobic Blood Culture - Preliminary No growth in 4 days 05/12/18 20:54 Blood - Peripheral Anaerobic Blood Culture - Preliminary No growth in 4 days 05/12/18 20:45 Blood - Peripheral Aerobic Blood Culture - Preliminary No growth in 4 days 05/12/18 20:45 Blood - Peripheral Anaerobic Blood Culture - Preliminary No growth in 4 days - Imaging Impressions Abdomen X-Ray 05/16/18 00:00 CONCLUSION: No disproportionate dilated loops of small or large bowel. Limited quality exam. Head CT 05/16/18 00:00 CONCLUSION: 1. No acute findings in the brain. . Venous Doppler Study 05/16/18 00:00 CONCLUSION: 1. The study is negative for bilateral upper extremity deep venous thrombosis. Venous Doppler Study 05/16/18 00:00 CONCLUSION: 1. The study is negative for bilateral lower extremity deep venous thrombosis. Chest CT 05/16/18 13:09 CONCLUSION: Stable CT appearance of the chest. Minimal parenchymal opacity at the left base. <Sydnie Dorado - Last Filed: 05/17/18 16:20> - Labs CBC & Chem 7: 05/17/18 03:23 05/17/18 03:23 Laboratory Results - last 24 hr 05/17/18 05/17/18 05/17/18 12:12 15:59 20:14 POC Glucose 508 H* 474 H* 400 H 05/18/18 05/18/18 05/18/18 02:37 08:13 11:23 POC Glucose 343 H 387 H 399 H Microbiology 05/12/18 20:54 Blood - Peripheral Aerobic Blood Culture - Final No growth in 5 days 05/12/18 20:54 Blood - Peripheral Anaerobic Blood Culture - Final No growth in 5 days 05/12/18 20:45 Blood - Peripheral Aerobic Blood Culture - Final No growth in 5 days 05/12/18 20:45 Blood - Peripheral Anaerobic Blood Culture - Final No growth in 5 days - Imaging Impressions Cervical Spine CT 05/17/18 00:00 CONCLUSION: 1. No acute findings in the cervical spine. The bony spinal canal is normal in size. 2. Advanced degenerative changes at the endplates and facet joints, similar to recent CT. Thoracic Spine CT 05/17/18 00:00 CONCLUSION: 1. Vertebral bodies of the thoracic spine are intact without focal bony destruction. The bony spinal canal is intact. Exam. <Lee Guardado - Last Filed: 05/18/18 12:28> Assessment and Plan (1) GI bleed Status: Acute Code(s): K92.2 - Gastrointestinal hemorrhage, unspecified (2) Anemia Status: Acute Code(s): D64.9 - Anemia, unspecified - Plan 67-year-old overweight male comes into the hospital on 05/12/2018 with symptomatic anemia, melena stools, GI bleed, and falls, syncopal episodes 3 at home over the past week. Current symptoms have been going on off and on for 2 weeks, aggregating symptoms are probably related to Eliquis and Plavix dual anticoagulation for his atrial fib. According to the record patient had positive Hemoccult in the ER setting. Hemoglobin on admission was 7.8 and decreased to 7.4. Patient received 1 unit packed RBCs, PT/INR 1. EGD colonoscopy approximately [address] Harper possible history of polyps and patient notes previous colon resection but unknown timing. Patient denies history of colon cancer but states polyp removed? Eliquis and Plavix are on hold for 05/13/2018. Gastroenterology has been consulted to assist with his care and evaluate his symptoms. EGD colonoscopy has been discussed with patient. When entered the room patient had been given GoLYTELY per hospitalist on admission to drink throughout the evening but patient denies any bowel movement he has drank approximately 60% of the GoLYTELY, but states he will not drink anymore. 05/15/2018 patient's currently resting in the bed awake and alert with some mild anxiety. 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 Results were discussed again with patient and the findings and recommendations. Capsule endoscopy if patient continues to have problems with anemia and unstable hemoglobin patient states he has already had this procedure before. Repeat colonoscopy in one year. Current hemoglobin is 8.5 mildly decreased and WBC count 17.3. Patient continues to complain today of right lower quadrant and right-sided abdominal pain which he states started post colonoscopy yesterday he states the pain does wax and wane but does have a sharp consistency at times. Patient states no bowel movement since colonoscopy prep which is only been 24-30 hours. Family member on the phone discussed again findings of EGD/colonoscopy in the need to have patient evaluated for his Eliquis and Plavix related to his GI bleeds and findings. Patient is high risk for bleeds especially with dual anticoagulant therapy. CT scan without contrast ordered for today to evaluate new abdominal pain and to rule out any new issues. According to the record patient is back on his Plavix dose today. 05/16/18 Pt is resting in bed, still with RLQ pain, had some nausea and vomiting last night, no bleeding reported. Endorses constipation. He had multiple syncopal episodes yesterday and currently being worked up for this, cardiology, pulmonology and neurology consulted hgb is improving. Abdomen/Pelvis CT 05/15/18 1. Eventration of the right hemidiaphragm 2. Moderate gaseous distention of the hepatic flexure in the right upper quadrant with a component of this sitting anterior to the liver 3. Gallbladder surgically absent 4. Previous transpedicular lumbar fixation. 05/17/2018 patient is resting in the bed lying on his back. Abdominal discomfort secondary to pressure and still has some positive abdominal tympany. Has soft bowel sounds. No BM in 3 days and patient has no urgency. ] KUB showed no disproportionate large and small bowel loops. Constipation is probably secondary to decreased motility and extended bed rest. is in the room. Hemoglobin 8.8 without any obvious bleeding we will continue to monitor. Supportive care to both and patient. No obvious bleeding but continue to monitor hemoglobin Plan Diet as tolerated per attending Consider CE as an op PPI Zofran Monitor labs and transfuse as necessary Further recommendations to follow Patient was seen per myself and Dr. Guardado, note was written on his behalf <Sydnie Dorado M - Last Filed: 05/17/18 16:20> (1) GI bleed Status: Acute Code(s): K92.2 - Gastrointestinal hemorrhage, unspecified (2) Anemia Status: Acute Code(s): D64.9 - Anemia, unspecified - Attending Attestation Patient seen and examined Agree with above Continue with current supportive care Monitor labs <Lee Guaraddo E - Last Filed: 05/18/18 12:28> <Sydnie Dorado M - Last Filed: 05/17/18 16:20> (1) GI bleed Qualifiers: GI bleed type/associated pathology: unspecified gastrointestinal hemorrhage type Qualified Code(s): K92.2 - Gastrointestinal hemorrhage, unspecified (2) Anemia Qualifiers: Anemia type: unspecified type Qualified Code(s): D64.9 - Anemia, unspecified <Lee Guardado E - Last Filed: 05/18/18 12:28> (1) GI bleed Qualifiers: GI bleed type/associated pathology: unspecified gastrointestinal hemorrhage type Qualified Code(s): K92.2 - Gastrointestinal hemorrhage, unspecified (2) Anemia Qualifiers: Anemia type: unspecified type Qualified Code(s): D64.9 - Anemia, unspecified
[2018-05-17] MEDS: metOLazone 5 MG Tablet PO SCH (09:00)
[2018-05-17] MEDS: Budesonide-Formoterol 160/4.5 MCG 6 GM Inhaler INH SCH ×2 (09:00→21:55)
--- NOTE | 2018-05-17 09:44 | P.PNPL ---
Subjective Interval history: Patient is lying in bed in NAD. Afebrile, more awake and alert today. Physical Exam Vital signs: Vital Signs 05/16/18 12:37 05/16/18 16:00 05/16/18 19:49 Temperature 97.5 F L Pulse Rate 80 81 Respiratory Rate 18 18 17 Blood Pressure 123/63 Pulse Oximetry 93 L 05/16/18 20:00 05/17/18 00:00 05/17/18 00:05 Temperature 97.7 F Pulse Rate 80 87 84 Respiratory Rate 18 18 Blood Pressure 120/56 L 110/76 Pulse Oximetry 96 05/17/18 04:00 05/17/18 08:00 05/17/18 08:28 Temperature 97.3 F L 98.1 F Pulse Rate 82 81 87 Respiratory Rate 18 18 15 Blood Pressure 127/71 144/63 H Pulse Oximetry 93 L 96 Intake & Output 05/16/18 05/17/18 05/17/18 18:59 06:59 18:59 Intake Total 340 / 340 Output Total 3250 / 3250 700 / 700 Balance 340 / 340 -3250 / -3250 -700 / -700 Weight 152.2 kg Intake: IV 100 / 100 Rocephin Inj 1,000 MG In NS Inj 100 / 100 100 ML @ 200 mls/hr IV.SIG Q24H [facility] Rx#:[id number] Oral 240 / 240 Output: Urine 3250 / 3250 700 / 700 Other: # Voids 1 Date of Last Bowel Movement 05/14/18 05/14/18 05/14/18 - Constitutional no acute distress - Routine HEENT Exam Head: Present: normocephalic, atraumatic Eye: Present: EOMI, PERRL, normal accommodation, conjunctivae pink ENT: Present: mucous membranes moist, oropharynx clear - Routine Neck Exam Present: supple, full ROM, trachea midline - Routine Respiratory Exam Present: CTA bilaterally - Routine Cardiovascular Exam Present: RRR, S1, S2 - Routine Abdominal Exam Present: soft, normoactive bowel sounds, firm - Routine Extremities Exam Present: full ROM, pulses intact - Routine Skin Exam Present: intact - Routine Neurological Exam Present: alert, oriented X3, CN II-XII intact, moving all extremities, normal speech - Detailed Neurological Exam: Coma Scale Verbal Response: Oriented - Routine Psychiatric Exam Present: normal affect Assessment and Plan - Plan 1. Acute hypoxemic and hypercapnic respiratory failure. 2. Obesity hypoventilation syndrome. 3. Morbid obesity. 4. COPD 5. History of tobacco abuse. 6. Leukocytosis. 7. Anemia. 8. Mild acute kidney injury. 9. History of atrial fibrillation, on Eliquis, currently on hold. 10. Diabetes mellitus. 11. Coronary artery disease. 12. Hypertension. Plan Monitor neuro status closely and avoid any sedatives. Oxygen p.r.n. to maintain sats > 92%. Continue with bronchodilators-DuoNeb/Symbicort Decrease Solu-Medrol 40 mg IV q.12 hours. BiPAP nocturnally and p.r.n. for respiratory distress. CT chest yesterday;. Minimal parenchymal opacity at the left base. Continue with abx (Rocephin) and monitor for signs of infections(fever and WBC)a BC from 06/12: NGTD. ID service consulted Doppler US LE, UE: No evidence of thrombosis Echo showed EF of 55-60%, normal LV size and function and PASP of 29 mmHg. GI and DVT prophylaxis - On Eliquis 5mg BID Discussed with patient's and Rogelio Mcnulty ([facility]) with [facility] Continue treatment plan.
--- NOTE | 2018-05-17 10:01 | P.PN ---
Subjective Interval history: Follow-up visit for anemia, syncopal episodes, A. fib, sleep apnea and CHF. Patient is seen and examined this morning resting in bed comfortably with and Dr. Lucas at bedside. reports that patient had several episodes late yesterday afternoon once again similar to what he had in the morning while performing foot pumps with physical therapy. Per patient is more awake and alert today, this is seen on exam. He has complaints over left broken tooth which is irritating his tongue. He also reports some lower abdominal discomfort, has not managed to move his bowels, positive flatus. No reports of headache, dizziness, cough, shortness of breath or chest pains. is requesting patient's Requip be resumed once again, also notes that he is not getting NovoLog doses in the morning as he usually does at home. Is agreeable with Levemir that has been started already. has reviewed imaging and lab work with pulmonary Dr. 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 has concerns over dosing of Keppra even though EEG was negative. Physical Exam Vital signs: Vital Signs 05/16/18 12:37 05/16/18 16:00 05/16/18 19:49 Temperature 97.5 F L Pulse Rate 80 81 Respiratory Rate 18 18 17 Blood Pressure 123/63 Pulse Oximetry 93 L 05/16/18 20:00 05/17/18 00:00 05/17/18 00:05 Temperature 97.7 F Pulse Rate 80 87 84 Respiratory Rate 18 18 Blood Pressure 120/56 L 110/76 Pulse Oximetry 96 05/17/18 04:00 05/17/18 08:00 05/17/18 08:28 Temperature 97.3 F L 98.1 F Pulse Rate 82 81 87 Respiratory Rate 18 18 15 Blood Pressure 127/71 144/63 H Pulse Oximetry 93 L 96 Intake & Output 05/16/18 05/17/18 05/17/18 18:59 06:59 18:59 Intake Total 340 / 340 Output Total 3250 / 3250 700 / 700 Balance 340 / 340 -3250 / -3250 -700 / -700 Weight 152.2 kg Intake: IV 100 / 100 Rocephin Inj 1,000 MG In NS Inj 100 / 100 100 ML @ 200 mls/hr IV.SIG Q24H [facility] Rx#:[id number] Oral 240 / 240 Output: Urine 3250 / 3250 700 / 700 Other: # Voids 1 Date of Last Bowel Movement 05/14/18 05/14/18 05/14/18 Narrative: GENERAL: Well developed, obese male in no acute distress. SKIN: Warm and dry. HEAD: Normocephalic. EYES: No scleral icterus. No injection or drainage. NECK: Supple, trachea midline. CARDIOVASCULAR: Regular rate and rhythm without murmurs, gallops, or rubs. RESPIRATORY: Upper breath sounds clear, lower breath sounds diminished due to body habitus. No accessory muscle use. GASTROINTESTINAL: Abdomen soft, non-tender, nondistended. Normoactive bowel sounds. MUSCULOSKELETAL: No cyanosis, or edema. Moving all extremities spontaneously, left upper extremity range of motion decreased secondary to pain. NEUROLOGICAL: Patient is awake, alert, oriented 3 looking around. Moving all extremities spontaneously, speech is clear, no facial droop. BACK: Nontender without obvious deformity. No CVA tenderness. Results - Labs CBC & Chem 7: 05/17/18 03:23 05/17/18 03:23 Laboratory Results - last 24 hr 05/16/18 05/16/18 05/16/18 11:56 14:28 17:14 WBC RBC Hgb Hct MCV MCH MCHC RDW Plt Count MPV Neut % (Auto) Lymph % (Auto) [place] % (Auto) Eos % (Auto) Baso % (Auto) Neut # (Auto) Lymph # (Auto) [place] # (Auto) Eos # (Auto) Baso # (Auto) WBC Differential Differential Comment Puncture Site Left radial Patient Temperature 98.6 O2 Saturation 90 ABG pH 7.45 H ABG pCO2 45 H ABG pO2 73 ABG HCO3 31 H ABG O2 Content 10.9 L ABG Base Excess 6.8 H ABG Methemoglobin 1.3 Christian Test Present Hemoglobin 8.5 L Carboxyhemoglobin 2.9 Inspired O2 21 Critical Value No Potassium POC Glucose 391 H 340 H 05/16/18 05/17/18 05/17/18 20:35 02:34 03:23 WBC 15.6 H RBC 3.92 L Hgb 8.8 L Hct 28.7 L MCV 73.2 L MCH 22.4 L MCHC 30.7 L RDW 20.6 H Plt Count 257 MPV 6.8 L Neut % (Auto) 92.3 H Lymph % (Auto) 6.0 L [place] % (Auto) 1.5 Eos % (Auto) 0.0 Baso % (Auto) 0.2 Neut # (Auto) 14.4 H Lymph # (Auto) 0.9 L [place] # (Auto) 0.2 Eos # (Auto) 0.0 Baso # (Auto) 0.0 WBC Differential . Differential Comment Auto diff final Puncture Site Patient Temperature O2 Saturation ABG pH ABG pCO2 ABG pO2 ABG HCO3 ABG O2 Content ABG Base Excess ABG Methemoglobin Christian Test Hemoglobin Carboxyhemoglobin Inspired O2 Critical Value Potassium POC Glucose 383 H 377 H 05/17/18 05/17/18 03:23 08:32 WBC RBC Hgb Hct MCV MCH MCHC RDW Plt Count MPV Neut % (Auto) Lymph % (Auto) [place] % (Auto) Eos % (Auto) Baso % (Auto) Neut # (Auto) Lymph # (Auto) [place] # (Auto) Eos # (Auto) Baso # (Auto) WBC Differential Differential Comment Puncture Site Patient Temperature O2 Saturation ABG pH ABG pCO2 ABG pO2 ABG HCO3 ABG O2 Content ABG Base Excess ABG Methemoglobin Christian Test Hemoglobin Carboxyhemoglobin Inspired O2 Critical Value Potassium 4.0 D POC Glucose 401 H Microbiology 05/12/18 20:54 Blood - Peripheral Aerobic Blood Culture - Preliminary No growth in 4 days 05/12/18 20:54 Blood - Peripheral Anaerobic Blood Culture - Preliminary No growth in 4 days 05/12/18 20:45 Blood - Peripheral Aerobic Blood Culture - Preliminary No growth in 4 days 05/12/18 20:45 Blood - Peripheral Anaerobic Blood Culture - Preliminary No growth in 4 days - Imaging Impressions Abdomen X-Ray 05/16/18 00:00 CONCLUSION: No disproportionate dilated loops of small or large bowel. Limited quality exam. Head CT 05/16/18 00:00 CONCLUSION: 1. No acute findings in the brain. . Venous Doppler Study 05/16/18 00:00 CONCLUSION: 1. The study is negative for bilateral upper extremity deep venous thrombosis. Venous Doppler Study 05/16/18 00:00 CONCLUSION: 1. The study is negative for bilateral lower extremity deep venous thrombosis. Chest CT 05/16/18 13:09 CONCLUSION: Stable CT appearance of the chest. Minimal parenchymal opacity at the left base. Assessment and Plan - Assessment (1) Generalized weakness Code(s): R53.1 - Weakness Status: Acute - Plan 67-year-old male with a past medical history significant for atrial fibrillation anticoagulated on Eliquis, diabetes mellitus, coronary artery disease status post CA, CHF (last ejection fraction 55%), COPD and a history of breast, colon and prostate cancers presents to ED on 05/12 due to syncopal episode. Symptomatic anemia/syncope/lower GI bleed H&H 7.8/25.0 Hemoccult positive ED with history of black, tarry stools - Gastroenterology consulted, appreciate recommendations - s/p 1 unit of PRBCs transfused -Continue to hold blood thinners, will need okay from GI to resume aspirin and Plavix -Status post EGD with snare polypectomy and colonoscopy with snare polypectomy and fulguration of AVM's 05/14. Procedure revealed gastric polyps, cecal AVM's, colon polyp and colon diverticulosis -H&H 9.1/30.1--> 8.5/27.9-->9.1/30.1, stable, continue monitoring for black or bloody stools, none thus far. -Lower abdominal pain, GI ordered CT of abd/pelvis: Eventration of right hemidiaphragm, moderate gaseous distention of hepatic flexure in the right upper quadrant with component sitting anterior to the liver, previous transpedicular lumbar fixation, otherwise negative. -Constipation, bowel regimen ordered, + flatus overnight, no bowel movement yet , continue bowel program -KUB 05/16 showed no disproportion needed dilated loops of small or large bowel, limited quality exam Syncope. Recurrent presyncopal/syncopal episodes yesterday afternoon and this morning -Cardiology consulted, and evaluated patient. Placed consult once again for reevaluation of patient due to ongoing syncopal episodes as well as 's request, greatly appreciate assistance and input. -Loop recorder interrogated, [facility] report noted sinus rhythm with PACs ( phone number [phone]) -2D echo showing EF 5560%, normal LV size, mild to moderate concentric left ventricular hypertrophy, no definitive wall motion abnormalities, moderate mitral annular calcification, mild aortic valve stenosis present -Bilateral carotid ultrasound with less than 50% stenosis -Bilateral upper and lower extremity ultrasounds negative for DVT -EEG with mild encephalopathy and sleep -Neurology Dr. Nichols evaluated patient, started on low-dose Keppra for possible seizure activity. He also mentions considering doing CT of the brain however creatinine was elevated and this was held off. -No further episodes overnight, no episodes this morning with foot pumps Hyperglycemia/diabetes mellitus -Blood sugars continue to be elevated. Change to cardiac and diabetic diet -NovoLog 50 units at ADM, NovoLog 20 units at 8 PM (as requested per ) Levemir 20 units twice daily, insulin sliding scale with Accu-Cheks -Monitor blood glucose Hypokalemia Hyponatremia, mild - s/p K replacement, K this a.m. 4.1 -Mild hyponatremia with sodium level 130, possibly related to hydrochlorothiazide, continue to monitor Atrial fibrillation, chronic -Continue amiodarone/metoprolol -Previously discussed with GI, nara to resume Eliquis, patient high risk for bleeding, continue monitoring closely. CHF/CAD Status post CA -Continue beta-gunner, diuretics, and low-dose aspirin as recommended by cardiology services -Continue home medications Left shoulder rotator cuff injury Right finger pain - Right hand x-ray negative for fractures. -X-ray reviewed, no acute abnormality, mild osteoarthritis at the acromioclavicular joint, continue Lidoderm patch. Sleep apnea-attending home CPAP machine -Consult pulmonary for further recommendations. JUNIOR -Creatinine continues to improve, continue monitoring and avoid nephrotoxins Leukocytosis, chronic -Patient with a history of leukocytosis dating back to 2017 upon review of EMR -Possibly related to steroid use recently -Blood cultures collected on 05/12 with no growth to date -Pulmonary has started ceftriaxone and consulted infectious disease for further recommendations -Patient afebrile with no suspected source of infection RLS -Continue home dose Requip Sleep apnea -Pulmonary services following, greatly appreciate assistance. DVT prophylaxis-ambulation Discussed Condition With: Patient, RN, Dr. Lucas,Dr. Kim, Dr. Delgado Discharge Planning: Will need clearance from cardiology and gastroenterology.
[2018-05-17 10:17] LABS: Calcium 9.2 mg/dL (8.5-10.1); Carbon Dioxide 27.3 meq/L (21.0-32.0); Potassium 4.1 meq/L (3.5-5.1)
[2018-05-17] MEDS: Senna/Docusate Sodium 8.6/50 MG Tablet PO SCH ×2 (10:55→21:47)
[2018-05-17] MEDS: levETIRAcetam 500 MG Tablet PO SCH ×2 (10:56→21:49)
[2018-05-17] MEDS: Furosemide 40 MG Tablet PO SCH (10:56)
[2018-05-17] MEDS: Duloxetine 60 MG DR Capsule PO SCH (10:56)
[2018-05-17] MEDS: Amiodarone 200 MG Tablet PO SCH (10:57)
[2018-05-17] MEDS: hydroCHLOROthiazide 25 MG Tablet PO SCH (10:57)
[2018-05-17] MEDS: Lidocaine 5% Patch T-DERMAL SCH (10:57)
[2018-05-17] MEDS: Metoprolol Tartrate 25 MG Tablet PO SCH ×2 (10:57→21:50)
[2018-05-17] MEDS: Insulin Detemir Inj 1,000 UNIT/10 ML Vial SQ SCH ×2 (10:59→21:52)
--- NOTE | 2018-05-17 13:30 | P.CONID ---
History of Present Illness Service: ID Consult date: 05/17/18 Requesting Physician: Linda Delgado Reason for Consult: leukocytosis Primary Care Provider: Frederick Jean Chief Complaint: syncope, sob History of Present Illness: 67 yo male with DM, morbid obesity COPD presetned to [place] after passing out cardiac work up negative, pt was diaganosed with melena, symtomatic anemia EGD colonoscopy performed on 05/14/2018 findings included gastric polyps, AVMs in the cecum, and diverticulosis. CT with minimla infiltrate L base - unchanged from February Noted to have high neutrophil count with ANC today up to 14.4K NO fever Blood clx negative @ 5 days JUNIOR, creatinint @ 1.43, blood clucose in 200-500 range On sterroids Pt was seen by Dr Morgan, who started him on sterroids and abx (azithromycin and Rocephin) Review of Systems All other systems reviewed negative except as stated in HPI PMFSH - History History Provided By: Patient, Medical Record - Medical History Medical History: Medical History (Last Reviewed 05/13/18 @ 14:55 by Makenzie Spears PT) A-fib CAD (coronary artery disease) CHF (congestive heart failure) Diabetes History of COPD History of breast cancer History of colon cancer History of prostate cancer Hx of syncope - Surgical History Surgical History: Surgical History (Last Reviewed 05/13/18 @ 14:55 by Makenzie Spears PT) H/O knee surgery H/O neck surgery H/O prostatectomy H/O shoulder surgery History of colon resection Hx of appendectomy Hx of cholecystectomy Previous back surgery - Family History Family History: Family History (Last Reviewed 05/13/18 @ 14:55 by Makenzie Spears PT) Other Diabetes mellitus - Tobacco History Second Hand Smoke Exposure: No Tobacco Use In Past 30 Days: No Smoking Status: Former smoker Tobacco Type: Cigarettes - Alcohol History How Often Do You Have a Drink Containing Alcohol: Monthly or less - Substance Use History Substance History: No History of Abuse - Travel History Recent Travel in the [place] Within the Last 8 Weeks: No Recent Travel Out of the Country Within the Last 8 Weeks: No - Immunization History Tetanus Immunization: <5 Years Hx Influenza Vaccine This Season: Yes Medications and Allergies Active Medications: Active Medications Al Hydroxide/Mg Hydroxide (Milk Of Magnesia Liq) 30 ml PO Q12H PRN PRN Reason: Mild Constipation Albuterol (Duoneb Neb (Prn)) 1 ampul NEB Q2HR NEB PRN PRN Reason: DYSPNEA Albuterol (Duoneb Neb (Sussy)) 1 ampul NEB Q4HR NEB [facility] Last Admin: 05/17/18 11:47 Dose: 1 ampul Amiodarone HCl (Cordarone) 200 mg PO DAILY [facility] Last Admin: 05/17/18 10:57 Dose: 200 mg Amlodipine Besylate (Norvasc) 5 mg PO DAILY [facility] Last Admin: 05/15/18 08:45 Dose: 5 mg Apixaban (Eliquis) 5 mg PO BID [facility] Last Admin: 05/17/18 10:56 Dose: 5 mg Aspirin (Aspirin Chew) 81 mg PO DAILY [facility] Last Admin: 05/17/18 11:01 Dose: Not Given Atorvastatin Calcium (Lipitor) 10 mg PO HS [facility] Last Admin: 05/16/18 20:57 Dose: 10 mg Bisacodyl (Dulcolax Supp) 10 mg RECTAL DAILY PRN PRN Reason: SEVERE CONSITIPATION Budesonide/Formoterol Fumarate (Symbicort 160/4.5 Mcg Inh) 2 puff INH BID [facility] Last Admin: 05/16/18 21:09 Dose: 2 puff Clopidogrel Bisulfate (Plavix) 75 mg PO DAILY [facility] Last Admin: 05/17/18 10:57 Dose: 75 mg Dextrose (D50w Vial) 50 ml IV.PUSH UNSCH PRN PRN Reason: PER HYPOGLYCEMIA PROTOCOL Duloxetine HCl (Cymbalta) 60 mg PO DAILY [facility] Last Admin: 05/17/18 10:56 Dose: 60 mg Furosemide (Lasix) 40 mg PO DAILY [facility] Last Admin: 05/17/18 10:56 Dose: 40 mg Gabapentin (Neurontin) 600 mg PO BID [facility] Last Admin: 05/16/18 08:20 Dose: 600 mg Glucagon (Glucagon Inj) 1 mg OTHER PRN PRN PRN Reason: for Hypoglycemia Protocol Hydrochlorothiazide (Hydrodiuril) 25 mg PO DAILY [facility] Last Admin: 05/17/18 10:57 Dose: 25 mg Ceftriaxone Sodium 1,000 mg/ (Sodium Chloride) 100 mls @ 200 mls/hr IV.SIG Q24H [facility] Last Infusion: 05/16/18 16:09 Dose: Infused Insulin Aspart (Novolog Insulin Correctional Sugar Inj) 0 unit SQ ACHS AND 3AM [facility]; Protocol Last Admin: 05/17/18 10:58 Dose: Not Given Insulin Aspart (Novolog Inj) 50 units SQ DAILY@0800 [facility] Insulin Aspart (Novolog Inj) 20 units SQ DAILY@2000 [facility] Insulin Detemir (Levemir Inj) 20 unit SQ BID [facility] Last Admin: 05/17/18 10:59 Dose: 20 unit Lactulose (Lactulose Liq) 30 ml PO DAILY PRN PRN Reason: SEVERE CONSITIPATION Levetiracetam (Keppra) 500 mg PO BID [facility] Last Admin: 05/17/18 10:56 Dose: 500 mg Lidocaine HCl (Lidoderm 5% Patch.12 Hr) 1 patch T-DERMAL DAILY [facility] Last Admin: 05/17/18 10:57 Dose: 1 patch Losartan Potassium (Cozaar) 100 mg PO DAILY [facility] Last Admin: 05/17/18 10:56 Dose: 100 mg Methylprednisolone Sodium Succinate (Solumedrol Inj) 40 mg IV.PUSH Q12H [facility] Metolazone (Zaroxolyn) 5 mg PO DAILY [facility] Last Admin: 05/16/18 08:21 Dose: 5 mg Metoprolol Tartrate (Lopressor) 75 mg PO BID [facility] Last Admin: 05/17/18 10:57 Dose: 75 mg Naloxone HCl (Narcan Inj) 0.4 mg IV.PUSH UNSCH PRN PRN Reason: SEE LABEL COMMENTS Ondansetron HCl (Zofran Inj) 4 mg IV.PUSH Q6H PRN PRN Reason: NAUSEA Last Admin: 05/16/18 06:18 Dose: 4 mg Oxycodone HCl (Roxicodone) 5 mg PO Q4H PRN PRN Reason: PAIN SCALE 3 TO 5 Last Admin: 05/16/18 12:07 Dose: 5 mg Oxycodone HCl (Roxicodone) 10 mg PO Q4H PRN PRN Reason: PAIN SCALE 6 TO 10 Last Admin: 05/17/18 11:01 Dose: 10 mg Pantoprazole Sodium (Protonix) 40 mg PO DAILY [facility] Last Admin: 05/17/18 10:56 Dose: 40 mg Patch Removal (Remove Old Patch) 1 each T-DERMAL HS [facility] Last Admin: 05/16/18 22:29 Dose: 1 each Ropinirole HCl (Requip) 0.5 mg PO DAILY [facility] Ropinirole HCl (Requip) 1 mg PO HS [facility] Senna/Docusate Sodium (Danielle-Colace) 1 tab PO BID [facility] Last Admin: 05/17/18 10:55 Dose: 1 tab Sennosides (Senokot) 17.2 mg PO Q12H PRN PRN Reason: Moderate Constipation Sodium Chloride (Ns Flush) 2 ml IV.FLUSH PRN PRN PRN Reason: FLUSH AFTER USING IV ACCESS Sodium Chloride (Ns Flush) 2 ml IV.FLUSH BID [facility] Last Admin: 05/16/18 22:29 Dose: 2 ml Allergies Allergy/AdvReac Type Severity Reaction Status Date / Time adhesive Allergy Severe Rash Verified 05/12/18 19:12 atorvastatin Allergy Severe MUSCLE Verified 05/12/18 19:12 WEAKNESS pravastatin Allergy Severe MUSCLE Verified 05/12/18 19:12 WEAKNESS rosuvastatin Allergy Severe MUSCLE Verified 05/12/18 19:12 WEAKNESS morphine AdvReac Severe BECOMES Verified 05/12/18 19:12 VERY AGGRESSIVE Home Medications Medication Instructions Recorded Confirmed Type amiodarone 200 mg PO DAILY 05/12/18 05/12/18 History amlodipine 5 mg PO DAILY 05/12/18 05/12/18 History apixaban [Eliquis] 5 mg PO BID 05/12/18 05/12/18 History atorvastatin 10 mg PO 05/12/18 History clopidogrel 75 mg PO DAILY 05/12/18 05/12/18 History duloxetine 60 mg PO DAILY 05/12/18 05/12/18 History furosemide 40 mg PO DAILY 05/12/18 05/12/18 History gabapentin 600 mg PO BID 05/12/18 05/12/18 History glimepiride 2 mg PO QAM 05/12/18 05/12/18 History hydrocodone-acetaminophen 1 tab PO Q6H PRN 05/12/18 05/12/18 History insulin NPH isoph U-100 human 75 unit SUB-Q HS 05/12/18 05/12/18 History [Novolin N NPH U-100 Insulin] insulin NPH isoph U-100 human 95 unit SUB-Q AC 05/12/18 05/12/18 History [Novolin N NPH U-100 Insulin] insulin regular human [Novolin R 20 unit SUB-Q QAM 05/12/18 05/12/18 History Regular U-100 Insuln] insulin regular human [Novolin R 50 unit SUB-Q HS 05/12/18 05/12/18 History Regular U-100 Insuln] isosorbide mononitrate 05/12/18 History losartan-hydrochlorothiazide 05/12/18 05/12/18 History metolazone 05/12/18 History metoprolol tartrate 75 mg PO BID 05/12/18 05/12/18 History montelukast 10 mg PO QPM 05/12/18 05/12/18 History pantoprazole 40 mg PO DAILY 05/12/18 05/12/18 History ropinirole 0.5 mg PO TID 05/12/18 05/12/18 History Exam Vital signs: Vital Signs 05/16/18 16:00 05/16/18 19:49 05/16/18 20:00 Temperature 97.5 F L Pulse Rate 80 81 80 Respiratory Rate 18 17 18 Blood Pressure 123/63 120/56 L Pulse Oximetry 93 L 05/17/18 00:00 05/17/18 00:05 05/17/18 04:00 Temperature 97.7 F 97.3 F L Pulse Rate 87 84 82 Respiratory Rate 18 18 Blood Pressure 110/76 127/71 Pulse Oximetry 96 93 L 05/17/18 08:00 05/17/18 08:28 05/17/18 11:48 Temperature 98.1 F Pulse Rate 81 87 81 Respiratory Rate 18 15 16 Blood Pressure 144/63 H Pulse Oximetry 96 Intake & Output 05/16/18 05/17/18 05/17/18 18:59 06:59 18:59 Intake Total 340 / 340 Output Total 3250 / 3250 700 / 700 Balance 340 / 340 -3250 / -3250 -700 / -700 Weight 152.2 kg Intake: IV 100 / 100 Rocephin Inj 1,000 MG In NS Inj 100 / 100 100 ML @ 200 mls/hr IV.SIG Q24H [facility] Rx#:[id number] Oral 240 / 240 Output: Urine 3250 / 3250 700 / 700 Other: # Voids 1 Date of Last Bowel Movement 05/14/18 05/14/18 05/14/18 - Constitutional no acute distress, morbidly obese - Routine HEENT Exam Head: Present: normocephalic, atraumatic Eye: Present: EOMI, PERRL ENT: Present: mucous membranes moist, oropharynx clear - Routine Neck Exam Present: supple, full ROM - Routine Respiratory Exam Present: decreased breath sounds (2/2 habitus), CTA bilaterally - Routine Cardiovascular Exam Present: RRR, S1, S2 Comments: no murmrus, rubs or gallops - Routine Abdominal Exam Present: soft Comments: very obese, unabble t o appeciate any megaly or masses no t tender + distended - Routine Extremities Exam Comments: no cyanosis, no clubbing bno edema, excellent pulses 2/2 no ulcerations - Routine Skin Exam Present: intact, dry, warm - Routine Neurological Exam Present: alert, oriented X3, CN II-XII intact, moving all extremities, vision grossly intact, hearing grossly intact, normal speech - Routine Psychiatric Exam Present: normal affect, normal thought process, cooperative Results - Labs CBC & Chem 7: 05/17/18 03:23 05/17/18 03:23 Labs: Laboratory Results - last 24 hr 05/16/18 05/16/18 05/16/18 14:28 17:14 20:35 WBC RBC Hgb Hct MCV MCH MCHC RDW Plt Count MPV Neut % (Auto) Lymph % (Auto) [place] % (Auto) Eos % (Auto) Baso % (Auto) Neut # (Auto) Lymph # (Auto) [place] # (Auto) Eos # (Auto) Baso # (Auto) WBC Differential Differential Comment Puncture Site Left radial Patient Temperature 98.6 O2 Saturation 90 ABG pH 7.45 H ABG pCO2 45 H ABG pO2 73 ABG HCO3 31 H ABG O2 Content 10.9 L ABG Base Excess 6.8 H ABG Methemoglobin 1.3 Christian Test Present Hemoglobin 8.5 L Carboxyhemoglobin 2.9 Inspired O2 21 Critical Value No Sodium Potassium Chloride Carbon Dioxide Anion Gap BUN Creatinine Estimated GFR POC Glucose 340 H 383 H Random Glucose Calcium 05/17/18 05/17/18 05/17/18 02:34 03:23 03:23 WBC 15.6 H RBC 3.92 L Hgb 8.8 L Hct 28.7 L MCV 73.2 L MCH 22.4 L MCHC 30.7 L RDW 20.6 H Plt Count 257 MPV 6.8 L Neut % (Auto) 92.3 H Lymph % (Auto) 6.0 L [place] % (Auto) 1.5 Eos % (Auto) 0.0 Baso % (Auto) 0.2 Neut # (Auto) 14.4 H Lymph # (Auto) 0.9 L [place] # (Auto) 0.2 Eos # (Auto) 0.0 Baso # (Auto) 0.0 WBC Differential . Differential Comment Auto diff final Puncture Site Patient Temperature O2 Saturation ABG pH ABG pCO2 ABG pO2 ABG HCO3 ABG O2 Content ABG Base Excess ABG Methemoglobin Christian Test Hemoglobin Carboxyhemoglobin Inspired O2 Critical Value Sodium Potassium 4.0 D Chloride Carbon Dioxide Anion Gap BUN Creatinine Estimated GFR POC Glucose 377 H Random Glucose Calcium 05/17/18 05/17/18 05/17/18 03:23 08:32 12:12 WBC RBC Hgb Hct MCV MCH MCHC RDW Plt Count MPV Neut % (Auto) Lymph % (Auto) [place] % (Auto) Eos % (Auto) Baso % (Auto) Neut # (Auto) Lymph # (Auto) [place] # (Auto) Eos # (Auto) Baso # (Auto) WBC Differential Differential Comment Puncture Site Patient Temperature O2 Saturation ABG pH ABG pCO2 ABG pO2 ABG HCO3 ABG O2 Content ABG Base Excess ABG Methemoglobin Christian Test Hemoglobin Carboxyhemoglobin Inspired O2 Critical Value Sodium 130 L Potassium 4.1 Chloride 88 L Carbon Dioxide 27.3 Anion Gap 15 BUN 15 Creatinine 1.43 H Estimated GFR 50 L POC Glucose 401 H 508 H* Random Glucose 345 H D Calcium 9.2 D - Imaging Impressions Abdomen X-Ray 05/16/18 00:00 CONCLUSION: No disproportionate dilated loops of small or large bowel. Limited quality exam. Head CT 05/16/18 00:00 CONCLUSION: 1. No acute findings in the brain. . Venous Doppler Study 05/16/18 00:00 CONCLUSION: 1. The study is negative for bilateral upper extremity deep venous thrombosis. Venous Doppler Study 05/16/18 00:00 CONCLUSION: 1. The study is negative for bilateral lower extremity deep venous thrombosis. Chest CT 05/16/18 13:09 CONCLUSION: Stable CT appearance of the chest. Minimal parenchymal opacity at the left base. Assessment and Plan - Plan Intermittent leukocytosis , cw reactive leukocytosis - most likley 2/2 sterroids - pt has a typical pattern in WBC after high dose sterroids with neutrophilia and lymphopenia COPD exacerbation cont abx x 7 days fu WBC dw pt, his spouse @ b/s
[2018-05-17] MEDS ORDERED: Bisacodyl 10 MG Supp RECTAL ONE (18:00)
--- NOTE | 2018-05-17 20:19 | P.PNNEU ---
Subjective Subjective Comments: No new c/o. Pt reports legs are weak when tries to walk and with stimulation notices an involuntary jerking movement in legs (?clonus) tolerating keppra Active Medications: Active Medications Al Hydroxide/Mg Hydroxide (Milk Of Magnfransico Liq) 30 ml PO Q12H PRN PRN Reason: Mild Constipation Albuterol (Duoneb Neb (Prn)) 1 ampul NEB Q2HR NEB PRN PRN Reason: DYSPNEA Albuterol (Duoneb Neb (Shawn)) 1 ampul NEB Q4HR NEB [facility] Last Admin: 05/17/18 19:52 Dose: 1 ampul Amiodarone HCl (Cordarone) 200 mg PO DAILY [facility] Last Admin: 05/17/18 10:57 Dose: 200 mg Amlodipine Besylate (Norvasc) 5 mg PO DAILY [facility] Last Admin: 05/15/18 08:45 Dose: 5 mg Apixaban (Eliquis) 5 mg PO BID [facility] Last Admin: 05/17/18 10:56 Dose: 5 mg Aspirin (Aspirin Chew) 81 mg PO DAILY [facility] Last Admin: 05/17/18 11:01 Dose: Not Given Atorvastatin Calcium (Lipitor) 10 mg PO HS [facility] Last Admin: 05/16/18 20:57 Dose: 10 mg Bisacodyl (Dulcolax Supp) 10 mg RECTAL DAILY PRN PRN Reason: SEVERE CONSITIPATION Budesonide/Formoterol Fumarate (Symbicort 160/4.5 Mcg Inh) 2 puff INH BID [facility] Last Admin: 05/17/18 09:00 Dose: 2 puff Clopidogrel Bisulfate (Plavix) 75 mg PO DAILY [facility] Last Admin: 05/17/18 10:57 Dose: 75 mg Dextrose (D50w Vial) 50 ml IV.PUSH UNSCH PRN PRN Reason: PER HYPOGLYCEMIA PROTOCOL Duloxetine HCl (Cymbalta) 60 mg PO DAILY [facility] Last Admin: 05/17/18 10:56 Dose: 60 mg Furosemide (Lasix) 40 mg PO DAILY [facility] Last Admin: 05/17/18 10:56 Dose: 40 mg Gabapentin (Neurontin) 600 mg PO BID [facility] Last Admin: 05/16/18 08:20 Dose: 600 mg Glimepiride (Amaryl) 2 mg PO DAILY [facility] Glucagon (Glucagon Inj) 1 mg OTHER PRN PRN PRN Reason: for Hypoglycemia Protocol Hydrochlorothiazide (Hydrodiuril) 25 mg PO DAILY [facility] Last Admin: 05/17/18 10:57 Dose: 25 mg Ceftriaxone Sodium 1,000 mg/ (Sodium Chloride) 100 mls @ 200 mls/hr IV.SIG Q24H [facility] Last Infusion: 05/17/18 14:45 Dose: Infused Insulin Aspart (Novolog Insulin Correctional Sugar Inj) 0 unit SQ ACHS AND 3AM [facility]AWN; Protocol Last Admin: 05/17/18 17:30 Dose: 12 unit Insulin Aspart (Novolog Inj) 50 units SQ DAILY@0800 [facility] Insulin Aspart (Novolog Inj) 20 units SQ DAILY@2000 [facility] Last Admin: 05/17/18 20:12 Dose: 20 units Insulin Detemir (Levemir Inj) 20 unit SQ BID [facility] Last Admin: 05/17/18 10:59 Dose: 20 unit Lactulose (Lactulose Liq) 30 ml PO DAILY PRN PRN Reason: SEVERE CONSITIPATION Levetiracetam (Keppra) 500 mg PO BID [facility] Last Admin: 05/17/18 10:56 Dose: 500 mg Lidocaine HCl (Lidoderm 5% Patch.12 Hr) 1 patch T-DERMAL DAILY [facility] Last Admin: 05/17/18 10:57 Dose: 1 patch Losartan Potassium (Cozaar) 100 mg PO DAILY [facility] Last Admin: 05/17/18 10:56 Dose: 100 mg Methylnaltrexone Drew (Relistor) 12 mg SQ DAILY [facility] Stop: 05/20/18 09:01 Methylprednisolone Sodium Succinate (Solumedrol Inj) 40 mg IV.PUSH Q12H [facility] Last Admin: 05/17/18 17:40 Dose: 40 mg Metolazone (Zaroxolyn) 5 mg PO DAILY [facility] Last Admin: 05/17/18 09:00 Dose: 5 mg Metoprolol Tartrate (Lopressor) 75 mg PO BID [facility] Last Admin: 05/17/18 10:57 Dose: 75 mg Naloxone HCl (Narcan Inj) 0.4 mg IV.PUSH UNSCH PRN PRN Reason: SEE LABEL COMMENTS Ondansetron HCl (Zofran Inj) 4 mg IV.PUSH Q6H PRN PRN Reason: NAUSEA Last Admin: 05/16/18 06:18 Dose: 4 mg Oxycodone HCl (Roxicodone) 5 mg PO Q4H PRN PRN Reason: PAIN SCALE 3 TO 5 Last Admin: 05/16/18 12:07 Dose: 5 mg Oxycodone HCl (Roxicodone) 10 mg PO Q4H PRN PRN Reason: PAIN SCALE 6 TO 10 Last Admin: 05/17/18 11:01 Dose: 10 mg Pantoprazole Sodium (Protonix) 40 mg PO DAILY [facility] Last Admin: 05/17/18 10:56 Dose: 40 mg Patch Removal (Remove Old Patch) 1 each T-DERMAL HS [facility] Last Admin: 05/16/18 22:29 Dose: 1 each Ropinirole HCl (Requip) 0.5 mg PO DAILY [facility] Last Admin: 05/17/18 10:00 Dose: 0.5 mg Ropinirole HCl (Requip) 1 mg PO HS [facility] Senna/Docusate Sodium (Danielle-Colace) 1 tab PO BID [facility] Last Admin: 05/17/18 10:55 Dose: 1 tab Sennosides (Senokot) 17.2 mg PO Q12H PRN PRN Reason: Moderate Constipation Sodium Chloride (Ns Flush) 2 ml IV.FLUSH PRN PRN PRN Reason: FLUSH AFTER USING IV ACCESS Sodium Chloride (Ns Flush) 2 ml IV.FLUSH BID [facility] Last Admin: 05/17/18 09:00 Dose: 2 ml Allergies/Adverse Reactions: Allergies Allergy/AdvReac Type Severity Reaction Status Date / Time adhesive Allergy Severe Rash Verified 05/12/18 19:12 atorvastatin Allergy Severe MUSCLE Verified 05/12/18 19:12 WEAKNESS pravastatin Allergy Severe MUSCLE Verified 05/12/18 19:12 WEAKNESS rosuvastatin Allergy Severe MUSCLE Verified 05/12/18 19:12 WEAKNESS morphine AdvReac Severe BECOMES Verified 05/12/18 19:12 VERY AGGRESSIVE Physical Exam Vital signs: Vital Signs 05/17/18 00:00 05/17/18 00:05 05/17/18 04:00 Temperature 97.7 F 97.3 F L Pulse Rate 87 84 82 Respiratory Rate 18 18 Blood Pressure 110/76 127/71 Pulse Oximetry 96 93 L 05/17/18 08:00 05/17/18 08:28 05/17/18 11:48 Temperature 98.1 F Pulse Rate 81 87 81 Respiratory Rate 18 15 16 Blood Pressure 144/63 H Pulse Oximetry 96 05/17/18 12:00 Temperature 97.9 F Pulse Rate 78 Respiratory Rate 20 Blood Pressure 137/58 L Pulse Oximetry 98 Intake & Output 05/17/18 05/17/18 05/18/18 06:59 18:59 06:59 Intake Total 840 / 840 Output Total 3250 / 3250 1400 / 1400 Balance -3250 / -3250 -560 / -560 Weight 152.2 kg Intake: IV 100 / 100 Rocephin Inj 1,000 MG In NS Inj 100 / 100 100 ML @ 200 mls/hr IV.SIG Q24H [facility] Rx#:[id number] Oral 240 / 240 Other 500 / 500 Output: Urine 3250 / 3250 1400 / 1400 Other: Other Intake Source Saline Solution # Voids 1 Date of Last Bowel Movement 05/14/18 05/14/18 - Routine Neurological Exam alert, oriented. speech normal CN intact MOTOR 4/5 BUE and BLE Objective Radiology Results: repeat CT brain normal EEG---no epileptiform Laboratory Results - last 24 hr 05/16/18 05/17/18 05/17/18 20:35 02:34 03:23 WBC 15.6 H RBC 3.92 L Hgb 8.8 L Hct 28.7 L MCV 73.2 L MCH 22.4 L MCHC 30.7 L RDW 20.6 H Plt Count 257 MPV 6.8 L Neut % (Auto) 92.3 H Lymph % (Auto) 6.0 L Carter % (Auto) 1.5 Eos % (Auto) 0.0 Baso % (Auto) 0.2 Neut # (Auto) 14.4 H Lymph # (Auto) 0.9 L Carter # (Auto) 0.2 Eos # (Auto) 0.0 Baso # (Auto) 0.0 WBC Differential . Differential Comment Auto diff final Sodium Potassium Chloride Carbon Dioxide Anion Gap BUN Creatinine Estimated GFR POC Glucose 383 H 377 H Random Glucose Calcium 05/17/18 05/17/18 05/17/18 03:23 03:23 08:32 WBC RBC Hgb Hct MCV MCH MCHC RDW Plt Count MPV Neut % (Auto) Lymph % (Auto) Carter % (Auto) Eos % (Auto) Baso % (Auto) Neut # (Auto) Lymph # (Auto) Carter # (Auto) Eos # (Auto) Baso # (Auto) WBC Differential Differential Comment Sodium 130 L Potassium 4.0 D 4.1 Chloride 88 L Carbon Dioxide 27.3 Anion Gap 15 BUN 15 Creatinine 1.43 H Estimated GFR 50 L POC Glucose 401 H Random Glucose 345 H D Calcium 9.2 D 05/17/18 05/17/18 12:12 15:59 WBC RBC Hgb Hct MCV MCH MCHC RDW Plt Count MPV Neut % (Auto) Lymph % (Auto) Carter % (Auto) Eos % (Auto) Baso % (Auto) Neut # (Auto) Lymph # (Auto) Carter # (Auto) Eos # (Auto) Baso # (Auto) WBC Differential Differential Comment Sodium Potassium Chloride Carbon Dioxide Anion Gap BUN Creatinine Estimated GFR POC Glucose 508 H* 474 H* Random Glucose Calcium Microbiology 05/12/18 20:54 Aerobic Blood Culture - Final Blood - Peripheral No growth in 5 days Anaerobic Blood Culture - Final No growth in 5 days 05/12/18 20:45 Aerobic Blood Culture - Final Blood - Peripheral No growth in 5 days Anaerobic Blood Culture - Final No growth in 5 days Review/Management - Diagnosis (1) Myelopathy Code(s): G95.9 - Disease of spinal cord, unspecified Status: Acute Current Visit: Yes - Review/Management Plan: LE weakness with ?clonus may be myelopathy---check CT cervical and thoracic spines to r/o stenosis continue trial of keppra for possible focal SZ.
--- NOTE | 2018-05-17 21:24 | CT ---
EXAM DATE: 05/17/2018 9:12 PM EDT AGE/SEX: 67 years / Male INDICATIONS: Myelopathy. CLINICAL DATA: This is the patient's initial encounter. Patient reports that signs and symptoms have been present for 3 days and indicates a pain score of 7/10. MEDICAL/SURGICAL HISTORY: Carcinoma, breast. Carcinoma, colon. Chronic obstructive pulmonary disease. Fusion, cervical. RADIATION DOSE: 27.63 CTDI (mGy) COMPARISON: POI, CT CERVICAL SPINE W/O CONTRAST, 12/17/2017. . TECHNIQUE: Contiguous axial images were obtained using helical multirow detector technique. The vol umetric data was post-processed with multiplanar reconstruction in oblique axial, sagittal, and coron al planes. Using automated exposure control and adjustment of the mA and/or kV according to patient s ize, radiation dose was kept as low as reasonably achievable to obtain optimal diagnostic quality dallin ges. DICOM format image data is available electronically for review and comparison. FINDINGS: There is advanced discogenic degenerative changes from C4 through T1, most severe at the C3 C6-7 leve l where there is almost complete loss of interspace and prominent anterior and posterior osteophytes. There is also moderate severity degenerative changes in the atlantoaxial articulation with a cyst in the dens. There is advanced degenerative changes in the lateral masses without evidence of locked or perched facets. The hypertrophic changes are greater in severity on the left side than on the right. The degenerative changes throughout the cervical spine are similar in appearance to prior examinatio n on 05/12/2018 and have progressed in severity when compared to 12/17/2017. The bony spinal canal has a normal AP dimension. C2-3: No fracture seen. Moderate left bony neural foraminal stenosis. C3-4: No fracture seen. Moderately severe bilateral bony neural foraminal stenosis. C4-5: No fracture seen. Severe bilateral bony neural foraminal stenosis. C5-6: No fracture seen. Moderately severe left-sided bony neural foraminal stenosis. C6-7: Broad ridge of osteophytes flattens the ventral margin of the thecal sac. No fractures seen. M oderate severity bilateral bony neural foraminal stenosis. C7-T1: No fracture seen. Severe right-sided bony neural foraminal stenosis. CONCLUSION: 1. No acute findings in the cervical spine. The bony spinal canal is normal in size. 2. Advanced degenerative changes at the endplates and facet joints, similar to recent CT. Electronically signed by: Sumeet Patel MD 05/17/2018 9:22 PM EDT
--- NOTE | 2018-05-17 21:41 | CT ---
EXAM DATE: 05/17/2018 9:36 PM EDT AGE/SEX: 67 years / Male INDICATIONS: Myelopathy. CLINICAL DATA: This is the patient's initial encounter. Patient reports that signs and symptoms have been present for 3 days and indicates a pain score of 7/10. MEDICAL/SURGICAL HISTORY: Carcinoma, colon. Carcinoma, breast. Congestive heart failure. chronic obstructive pulmonary disease. Fusion, cervical. RADIATION DOSE: 32.72 CTDI (mGy) COMPARISON: No prior exams available for comparison. TECHNIQUE: Contiguous axial images were acquired using a multirow detector CT scanner without contra st. Multiplanar reconstruction in the sagittal and coronal planes was performed. Using automated exp osure control and adjustment of the mA and/or kV according to patient size, radiation dose was kept a s low as reasonably achievable to obtain optimal diagnostic quality images. DICOM format image data is available electronically for review and comparison. FINDINGS: There is normal alignment of the vertebral bodies of the thoracic spine and preservation of vertebral body height. Bridging anterior paravertebral ossification is present from T3 through T12. No signifi cant posterior osteophytes seen. The posterior elements are grossly normal alignment. The costoverteb ral junctions are intact. No fractures seen. No focal areas of bony destruction.. CONCLUSION: 1. Vertebral bodies of the thoracic spine are intact without focal bony destruction. The bony spinal canal is intact. Exam. Electronically signed by: Sumeet Patel MD 05/17/2018 9:40 PM EDT
[2018-05-18] MEDS: Insulin NovoLOG Aspart Correctional Sugar Inj SQ SCH ×5 (02:44→21:49)
[2018-05-18] MEDS: MethylPREDNISolone Sod Succinate Inj 40 MG/ML Vial IV.PUSH SCH ×2 (05:21→15:11)
[2018-05-18] MEDS: hydroCHLOROthiazide 25 MG Tablet PO SCH (08:14)
[2018-05-18] MEDS: Furosemide 40 MG Tablet PO SCH (08:14)
[2018-05-18] MEDS: Metoprolol Tartrate 25 MG Tablet PO SCH (08:14)
[2018-05-18] MEDS: levETIRAcetam 500 MG Tablet PO SCH ×2 (08:15→21:50)
[2018-05-18] MEDS: Glimepiride 2 MG Tablet PO SCH (08:15)
[2018-05-18] MEDS: Senna/Docusate Sodium 8.6/50 MG Tablet PO SCH ×2 (08:15→21:50)
[2018-05-18] MEDS: Methylnaltrexone Inj 12 MG/0.6 ML Vial SQ SCH (08:16)
[2018-05-18] MEDS: Duloxetine 60 MG DR Capsule PO SCH (08:17)
[2018-05-18] MEDS: Amiodarone 200 MG Tablet PO SCH (08:17)
[2018-05-18] MEDS: metOLazone 5 MG Tablet PO SCH (08:17)
--- NOTE | 2018-05-18 08:17 | P.PN ---
Subjective Interval history: Follow-up visit for anemia, syncopal episodes, A. fib, sleep apnea and CHF. Patient is seen and examined resting in bed comfortably, at bedside. reports patient had episode yesterday when working with therapy this time when moving abducting leg out, reports leg began to shake and became stiff. Patient was seen and evaluated by neurology services and ordered additional testing as there is believe that he could possibly have some back injury. Patient does have a medical history significant for back surgeries. Patient denies any shortness of breath, cough, fevers, chills, nausea or vomiting. reports patient had a bowel movement yesterday, light brown and soft. Cardiology also stop by to see patient, reports that cad application support specialist had not witnessed any episodes and that per cad application support specialist states there were no episodes recorded in progress notes. Patient requesting increase in sliding scale coverage to high dose, glimepiride resumed. We also discussed discontinuing Roxicodone and starting his normal 10 mg of hydrocodone which he takes at home. Later in the afternoon around 2 PM LUISA wilde Janet comes to bedside to perform exam. Patient is extremely upset over protocol needed to perform this including TV being turned off. Specifically makes accusations towards this geochemical laboratory technician and reports that she has "an attitude". Discussed with patient the protocol for this exam, at last he is compliant and states he is willing to have test done but does not want to be spoken to by the geochemical laboratory technician. RN present. Physical Exam Vital signs: Vital Signs 05/17/18 08:28 05/17/18 11:48 05/17/18 12:00 Temperature 97.9 F Pulse Rate 87 81 78 Respiratory Rate 15 16 20 Blood Pressure 137/58 L Pulse Oximetry 98 05/17/18 20:00 05/18/18 00:00 05/18/18 01:46 Temperature 98.2 F 98.3 F Pulse Rate 77 68 Respiratory Rate 19 17 17 Blood Pressure 117/56 L 125/69 Pulse Oximetry 92 L 93 L 05/18/18 04:00 Temperature 98.4 F Pulse Rate 68 Respiratory Rate 17 Blood Pressure 118/55 L Pulse Oximetry 93 L Intake & Output 05/17/18 05/18/18 05/18/18 18:59 06:59 18:59 Intake Total 840 / 840 Output Total 1400 / 1400 Balance -560 / -560 Weight 152.4 kg Intake: IV 100 / 100 Rocephin Inj 1,000 MG In NS Inj 100 / 100 100 ML @ 200 mls/hr IV.SIG Q24H [facility] Rx#:[id number] Oral 240 / 240 Other 500 / 500 Output: Urine 1400 / 1400 Other: Other Intake Source Saline Solution # Voids 1 Date of Last Bowel Movement 05/14/18 05/17/18 Narrative: GENERAL: Well developed, obese male in no acute distress. SKIN: Warm and dry. HEAD: Normocephalic. EYES: No scleral icterus. No injection or drainage. NECK: Supple, trachea midline. CARDIOVASCULAR: Regular rate and rhythm without murmurs, gallops, or rubs. RESPIRATORY: Upper breath sounds clear, lower breath sounds diminished due to body habitus. No accessory muscle use. GASTROINTESTINAL: Abdomen soft, non-tender, nondistended. Normoactive bowel sounds. MUSCULOSKELETAL: No cyanosis, or edema. Moving all extremities spontaneously, left upper extremity range of motion decreased secondary to pain. NEUROLOGICAL: Patient is awake, alert, oriented 3 looking around. Moving all extremities spontaneously, speech is clear, no facial droop. BACK: Nontender without obvious deformity. No CVA tenderness. Results - Labs CBC & Chem 7: 05/17/18 03:23 05/17/18 03:23 Laboratory Results - last 24 hr 05/17/18 05/17/18 05/17/18 03:23 08:32 12:12 Sodium 130 L Potassium 4.1 Chloride 88 L Carbon Dioxide 27.3 Anion Gap 15 BUN 15 Creatinine 1.43 H Estimated GFR 50 L POC Glucose 401 H 508 H* Random Glucose 345 H D Calcium 9.2 D 05/17/18 05/17/18 05/18/18 15:59 20:14 02:37 Sodium Potassium Chloride Carbon Dioxide Anion Gap BUN Creatinine Estimated GFR POC Glucose 474 H* 400 H 343 H Random Glucose Calcium 05/18/18 08:13 Sodium Potassium Chloride Carbon Dioxide Anion Gap BUN Creatinine Estimated GFR POC Glucose 387 H Random Glucose Calcium Microbiology 05/12/18 20:54 Blood - Peripheral Aerobic Blood Culture - Final No growth in 5 days 05/12/18 20:54 Blood - Peripheral Anaerobic Blood Culture - Final No growth in 5 days 05/12/18 20:45 Blood - Peripheral Aerobic Blood Culture - Final No growth in 5 days 05/12/18 20:45 Blood - Peripheral Anaerobic Blood Culture - Final No growth in 5 days - Imaging Impressions Cervical Spine CT 05/17/18 00:00 CONCLUSION: 1. No acute findings in the cervical spine. The bony spinal canal is normal in size. 2. Advanced degenerative changes at the endplates and facet joints, similar to recent CT. Thoracic Spine CT 05/17/18 00:00 CONCLUSION: 1. Vertebral bodies of the thoracic spine are intact without focal bony destruction. The bony spinal canal is intact. Exam. Assessment and Plan - Assessment (1) Generalized weakness Code(s): R53.1 - Weakness Status: Acute - Plan 67-year-old male with a past medical history significant for atrial fibrillation anticoagulated on Eliquis, diabetes mellitus, coronary artery disease status post PR, CHF (last ejection fraction 55%), COPD and a history of breast, colon and prostate cancers presents to ED on 05/12 due to syncopal episode. Symptomatic anemia/syncope/lower GI bleed H&H 7.8/25.0 Hemoccult positive ED with history of black, tarry stools - Gastroenterology consulted, appreciate recommendations - s/p 1 unit of PRBCs transfused -Continue to hold blood thinners, will need okay from GI to resume aspirin and Plavix -Status post EGD with snare polypectomy and colonoscopy with snare polypectomy and fulguration of AVM's 05/14. Procedure revealed gastric polyps, cecal AVM's, colon polyp and colon diverticulosis -H&H 9.1/30.1--> 8.5/27.9-->9.1/30.1, stable, continue monitoring for black or bloody stools, none thus far. -Lower abdominal pain, GI ordered CT of abd/pelvis: Eventration of right hemidiaphragm, moderate gaseous distention of hepatic flexure in the right upper quadrant with component sitting anterior to the liver, previous transpedicular lumbar fixation, otherwise negative. -Constipation, bowel regimen ordered, + BM -KUB 05/16 showed no disproportion needed dilated loops of small or large bowel, limited quality exam Syncope. Recurrent presyncopal/syncopal episodes yesterday afternoon and this morning -Cardiology consulted, and evaluated patient. Placed consult once again for reevaluation of patient due to ongoing syncopal episodes as well as 's request, greatly appreciate assistance and input. -Loop recorder interrogated, Differential report noted sinus rhythm with PACs ( phone number [phone]) -2D echo showing EF 5560%, normal LV size, mild to moderate concentric left ventricular hypertrophy, no definitive wall motion abnormalities, moderate mitral annular calcification, mild aortic valve stenosis present -Bilateral carotid ultrasound with less than 50% stenosis -Bilateral upper and lower extremity ultrasounds negative for DVT -EEG with mild encephalopathy and sleep -Neurology Dr. Nichols evaluated patient, started on low-dose Keppra for possible seizure activity. He also mentions considering doing CT of the brain however creatinine was elevated and this was held off. -CT of C-spine and T- spine to due to possible clonus. - CT- T spine: Negative, CT of T-spine: Advanced degenerative changes at the endplates and facet joints, similar to recent CT. Hyperglycemia/diabetes mellitus -Blood sugars continue to be elevated. Change to cardiac and diabetic diet -NovoLog 50 units at ADM, NovoLog 20 units at 8 PM (as requested per ) Levemir 20 units twice daily, insulin sliding scale with Accu-Cheks, sliding scale increased to high -Resume 2 mg of glimepiride -Monitor blood glucose Hypokalemia Hyponatremia, mild - s/p K replacement, K 4.1 -Mild hyponatremia with sodium level 130, possibly related to hydrochlorothiazide, continue to monitor Atrial fibrillation, chronic -Continue amiodarone/metoprolol -Previously discussed with nara GARCIA to resume Eliquis, patient high risk for bleeding, continue monitoring closely. CHF/CAD Status post PR -Continue beta-gunner, diuretics, and low-dose aspirin as recommended by cardiology services -Continue home medications Left shoulder rotator cuff injury Right finger pain - Right hand x-ray negative for fractures. -X-ray reviewed, no acute abnormality, mild osteoarthritis at the acromioclavicular joint, continue Lidoderm patch. Sleep apnea-attending home CPAP machine -Consult pulmonary for further recommendations. JUNIOR -Creatinine continues to improve, continue monitoring and avoid nephrotoxins -Slight improvement in creatinine. Leukocytosis, chronic -Patient with a history of leukocytosis dating back to 2017 upon review of EMR -Possibly related to steroid use recently -Blood cultures collected on 05/12 with no growth to date -Pulmonary has started ceftriaxone and consulted infectious disease for further recommendations -Patient afebrile with no suspected source of infection RLS -Continue home dose Requip Sleep apnea -Pulmonary services following, greatly appreciate assistance. DVT prophylaxis-ambulation Discussed Condition With: Discussed with patient, RN, . Discharge Planning: Will need clearance from cardiology and gastroenterology.
[2018-05-18] MEDS: Insulin Detemir Inj 1,000 UNIT/10 ML Vial SQ SCH ×2 (08:22→21:45)
[2018-05-18] MEDS: Lidocaine 5% Patch T-DERMAL SCH (10:28)
[2018-05-18] MEDS: Budesonide-Formoterol 160/4.5 MCG 6 GM Inhaler INH SCH ×2 (10:29→21:51)
--- NOTE | 2018-05-18 11:17 | P.PNNEU ---
Subjective Subjective Comments: Resting. No acute events. Discussed with at bedside lightheadedness dizziness syncopal type episodes with positional changes standing and walking. Active Medications: Active Medications Hydrocodone Bitart/Acetaminophen ([place] 10/325) 1 tab PO Q6H PRN PRN Reason: Pain 2-10 Al Hydroxide/Mg Hydroxide (Milk Of Magnfransico Liq) 30 ml PO Q12H PRN PRN Reason: Mild Constipation Albuterol (Duoneb Neb (Prn)) 1 ampul NEB Q2HR NEB PRN PRN Reason: DYSPNEA Albuterol (Duoneb Neb (Shawn)) 1 ampul NEB Q4HR NEB [facility] Last Admin: 05/18/18 08:31 Dose: 1 ampul Amiodarone HCl (Cordarone) 200 mg PO DAILY [facility] Last Admin: 05/18/18 08:17 Dose: 200 mg Amlodipine Besylate (Norvasc) 5 mg PO DAILY [facility] Last Admin: 05/15/18 08:45 Dose: 5 mg Apixaban (Eliquis) 5 mg PO BID [facility] Last Admin: 05/18/18 08:17 Dose: 5 mg Aspirin (Aspirin Chew) 81 mg PO DAILY [facility] Last Admin: 05/17/18 11:01 Dose: Not Given Atorvastatin Calcium (Lipitor) 10 mg PO HS [facility] Last Admin: 05/17/18 21:47 Dose: 10 mg Bisacodyl (Dulcolax Supp) 10 mg RECTAL DAILY PRN PRN Reason: SEVERE CONSITIPATION Budesonide/Formoterol Fumarate (Symbicort 160/4.5 Mcg Inh) 2 puff INH BID [facility] Last Admin: 05/18/18 10:29 Dose: 2 puff Clopidogrel Bisulfate (Plavix) 75 mg PO DAILY [facility] Last Admin: 05/18/18 08:14 Dose: 75 mg Dextrose (D50w Vial) 50 ml IV.PUSH UNSCH PRN PRN Reason: PER HYPOGLYCEMIA PROTOCOL Duloxetine HCl (Cymbalta) 60 mg PO DAILY [facility] Last Admin: 05/18/18 08:17 Dose: 60 mg Furosemide (Lasix) 40 mg PO DAILY [facility] Last Admin: 05/18/18 08:14 Dose: 40 mg Gabapentin (Neurontin) 600 mg PO BID [facility] Last Admin: 05/16/18 08:20 Dose: 600 mg Glimepiride (Amaryl) 2 mg PO DAILY [facility] Last Admin: 05/18/18 08:15 Dose: 2 mg Glucagon (Glucagon Inj) 1 mg OTHER PRN PRN PRN Reason: for Hypoglycemia Protocol Hydrochlorothiazide (Hydrodiuril) 25 mg PO DAILY [facility] Last Admin: 05/18/18 08:14 Dose: 25 mg Ceftriaxone Sodium 1,000 mg/ (Sodium Chloride) 100 mls @ 200 mls/hr IV.SIG Q24H [facility] Last Infusion: 05/17/18 14:45 Dose: Infused Insulin Aspart (Novolog Insulin Correctional Sugar Inj) 0 unit SQ ACHS AND 3AM [facility]; Protocol Last Admin: 05/18/18 08:41 Dose: 25 unit Insulin Aspart (Novolog Inj) 50 units SQ DAILY@0800 [facility] Last Admin: 05/18/18 08:15 Dose: 50 units Insulin Aspart (Novolog Inj) 20 units SQ DAILY@2000 [facility] Last Admin: 05/17/18 20:12 Dose: 20 units Insulin Detemir (Levemir Inj) 20 unit SQ BID [facility] Last Admin: 05/18/18 08:22 Dose: 20 unit Lactulose (Lactulose Liq) 30 ml PO DAILY PRN PRN Reason: SEVERE CONSITIPATION Levetiracetam (Keppra) 500 mg PO BID [facility] Last Admin: 05/18/18 08:15 Dose: 500 mg Lidocaine HCl (Lidoderm 5% Patch.12 Hr) 1 patch T-DERMAL DAILY [facility] Last Admin: 05/18/18 10:28 Dose: 1 patch Losartan Potassium (Cozaar) 100 mg PO DAILY [facility] Last Admin: 05/18/18 08:15 Dose: 100 mg Methylnaltrexone Wesson (Relistor) 12 mg SQ DAILY [facility] Stop: 05/20/18 09:01 Last Admin: 05/18/18 08:16 Dose: 12 mg Methylprednisolone Sodium Succinate (Solumedrol Inj) 40 mg IV.PUSH Q12H [facility] Last Admin: 05/18/18 05:21 Dose: 40 mg Metolazone (Zaroxolyn) 5 mg PO DAILY [facility] Last Admin: 05/18/18 08:17 Dose: 5 mg Metoprolol Tartrate (Lopressor) 75 mg PO BID [facility] Last Admin: 05/18/18 08:14 Dose: 75 mg Naloxone HCl (Narcan Inj) 0.4 mg IV.PUSH UNSCH PRN PRN Reason: SEE LABEL COMMENTS Ondansetron HCl (Zofran Inj) 4 mg IV.PUSH Q6H PRN PRN Reason: NAUSEA Last Admin: 05/16/18 06:18 Dose: 4 mg Pantoprazole Sodium (Protonix) 40 mg PO DAILY [facility] Last Admin: 05/18/18 08:16 Dose: 40 mg Patch Removal (Remove Old Patch) 1 each T-DERMAL HS [facility] Last Admin: 05/17/18 21:48 Dose: 1 each Ropinirole HCl (Requip) 0.5 mg PO DAILY [facility] Last Admin: 05/18/18 08:16 Dose: 0.5 mg Ropinirole HCl (Requip) 1 mg PO HS [facility] Last Admin: 05/17/18 21:47 Dose: 1 mg Senna/Docusate Sodium (Danielle-Colace) 1 tab PO BID [facility] Last Admin: 05/18/18 08:15 Dose: 1 tab Sennosides (Senokot) 17.2 mg PO Q12H PRN PRN Reason: Moderate Constipation Sodium Chloride (Ns Flush) 2 ml IV.FLUSH PRN PRN PRN Reason: FLUSH AFTER USING IV ACCESS Sodium Chloride (Ns Flush) 2 ml IV.FLUSH BID [facility] Last Admin: 05/18/18 10:27 Dose: 2 ml Allergies/Adverse Reactions: Allergies Allergy/AdvReac Type Severity Reaction Status Date / Time adhesive Allergy Severe Rash Verified 05/12/18 19:12 atorvastatin Allergy Severe MUSCLE Verified 05/12/18 19:12 WEAKNESS pravastatin Allergy Severe MUSCLE Verified 05/12/18 19:12 WEAKNESS rosuvastatin Allergy Severe MUSCLE Verified 05/12/18 19:12 WEAKNESS morphine AdvReac Severe BECOMES Verified 05/12/18 19:12 VERY AGGRESSIVE Review of Systems All other systems reviewed negative except as stated in HPI Physical Exam Vital signs: Vital Signs 05/17/18 11:48 05/17/18 12:00 05/17/18 20:00 Temperature 97.9 F 98.2 F Pulse Rate 81 78 77 Respiratory Rate 16 20 19 Blood Pressure 137/58 L 117/56 L Pulse Oximetry 98 92 L 05/18/18 00:00 05/18/18 01:46 05/18/18 04:00 Temperature 98.3 F 98.4 F Pulse Rate 68 68 Respiratory Rate 17 17 17 Blood Pressure 125/69 118/55 L Pulse Oximetry 93 L 93 L 05/18/18 08:00 05/18/18 08:32 Temperature 97.9 F Pulse Rate 83 68 Respiratory Rate 18 16 Blood Pressure 137/60 Pulse Oximetry 91 L Intake & Output 05/17/18 05/18/18 05/18/18 18:59 06:59 18:59 Intake Total 840 / 840 Output Total 1400 / 1400 Balance -560 / -560 Weight 152.4 kg Intake: IV 100 / 100 Rocephin Inj 1,000 MG In NS Inj 100 / 100 100 ML @ 200 mls/hr IV.SIG Q24H [facility] Rx#:[id number] Oral 240 / 240 Other 500 / 500 Output: Urine 1400 / 1400 Other: Other Intake Source Saline Solution # Voids 1 Date of Last Bowel Movement 05/14/18 05/17/18 Narrative: GENERAL: Well developed, obese male in no acute distress. SKIN: Warm and dry. HEAD: Normocephalic. EYES: No scleral icterus. No injection or drainage. NECK: Supple, trachea midline. CARDIOVASCULAR: Regular rate and rhythm without murmurs, gallops, or rubs. RESPIRATORY: No accessory muscle use. GASTROINTESTINAL: Abdomen soft, non-tender, nondistended. MUSCULOSKELETAL: No cyanosis, or edema. Moving all extremities spontaneously, left upper extremity range of motion decreased secondary to pain. NEUROLOGICAL: Resting arousable, BiPAP machine at bedside was not using it when I came in to see him. states he has been using it however. - Constitutional no acute distress - Routine HEENT Exam Head: Present: normocephalic Objective Laboratory Results - last 24 hr 05/17/18 05/17/18 05/17/18 12:12 15:59 20:14 POC Glucose 508 H* 474 H* 400 H 05/18/18 05/18/18 02:37 08:13 POC Glucose 343 H 387 H Microbiology 05/12/18 20:54 Aerobic Blood Culture - Final Blood - Peripheral No growth in 5 days Anaerobic Blood Culture - Final No growth in 5 days 05/12/18 20:45 Aerobic Blood Culture - Final Blood - Peripheral No growth in 5 days Anaerobic Blood Culture - Final No growth in 5 days Review/Management - Diagnosis (1) GI bleed Code(s): K92.2 - Gastrointestinal hemorrhage, unspecified Status: Acute Current Visit: Yes (2) Anemia Code(s): D64.9 - Anemia, unspecified Status: Acute Current Visit: Yes (3) Syncope Code(s): R55 - Syncope and collapse Status: Acute Current Visit: Yes (4) Generalized weakness Code(s): R53.1 - Weakness Status: Acute Current Visit: Yes - Review/Management Plan: CT C-spine, T-spine shows arthritis no fracture no obvious significant stenosis Syncopal weakness likely related to orthostatic hypotension, anemia deconditioning Recommendations Follow-up orthostatics Glucose control Hydration PT as tolerated Discussed with patient's spouse (1) GI bleed Qualifiers: GI bleed type/associated pathology: unspecified gastrointestinal hemorrhage type Qualified Code(s): K92.2 - Gastrointestinal hemorrhage, unspecified (2) Anemia Qualifiers: Anemia type: unspecified type Qualified Code(s): D64.9 - Anemia, unspecified (3) Syncope Qualifiers: Syncope type: unspecified Qualified Code(s): R55 - Syncope and collapse
--- NOTE | 2018-05-18 13:21 | P.PNPL ---
Subjective Interval history: No events overnight. Awake and alert. Afebrile. Physical Exam Vital signs: Vital Signs 05/17/18 20:00 05/18/18 00:00 05/18/18 01:46 Temperature 98.2 F 98.3 F Pulse Rate 77 68 Respiratory Rate 19 17 17 Blood Pressure 117/56 L 125/69 Pulse Oximetry 92 L 93 L 05/18/18 04:00 05/18/18 08:00 05/18/18 08:32 Temperature 98.4 F 97.9 F Pulse Rate 68 83 68 Respiratory Rate 17 18 16 Blood Pressure 118/55 L 137/60 Pulse Oximetry 93 L 91 L 05/18/18 11:21 05/18/18 11:53 Temperature 97.8 F Pulse Rate 59 L 85 Respiratory Rate 16 19 Blood Pressure 111/53 L Pulse Oximetry 96 Intake & Output 05/17/18 05/18/18 05/18/18 18:59 06:59 18:59 Intake Total 840 / 840 Output Total 1400 / 1400 Balance -560 / -560 Weight 152.4 kg Intake: IV 100 / 100 Rocephin Inj 1,000 MG In NS Inj 100 / 100 100 ML @ 200 mls/hr IV.SIG Q24H [facility] Rx#:[id number] Oral 240 / 240 Other 500 / 500 Output: Urine 1400 / 1400 Other: Other Intake Source Saline Solution # Voids 1 Date of Last Bowel Movement 05/14/18 05/17/18 - Constitutional no acute distress, morbidly obese - Routine HEENT Exam Head: Present: normocephalic, atraumatic Eye: Present: EOMI, PERRL, normal accommodation ENT: Present: mucous membranes moist - Routine Neck Exam Present: supple, full ROM, trachea midline - Routine Respiratory Exam Present: CTA bilaterally - Routine Cardiovascular Exam Present: RRR, S1, S2 - Routine Abdominal Exam Present: soft, normoactive bowel sounds, firm - Routine Extremities Exam Present: edema, full ROM - Routine Skin Exam Present: intact - Routine Neurological Exam Present: alert, oriented X3, CN II-XII intact Assessment and Plan - Plan 1. Acute hypoxemic and hypercapnic respiratory failure. 2. Obesity hypoventilation syndrome. 3. Morbid obesity. 4. COPD 5. History of tobacco abuse. 6. Leukocytosis. 7. Anemia. 8. Mild acute kidney injury. 9. History of atrial fibrillation, on Eliquis, currently on hold. 10. Diabetes mellitus. 11. Coronary artery disease. 12. Hypertension. Plan Monitor neuro status closely and avoid any sedatives. Oxygen p.r.n. to maintain sats > 92%. Continue with bronchodilators-DuoNeb/Symbicort Taper steroids- decrease Solu-Medrol 40 mg IV daily BiPAP nocturnally and p.r.n. for respiratory distress. CT chest 05/16;. Minimal parenchymal opacity at the left base. Continue with abx (Rocephin) and monitor for signs of infections(fever and WBC) BC from 06/12: NGTD. ID is following Doppler US LE, UE: No evidence of thrombosis Echo showed EF of 55-60%, normal LV size and function and PASP of 29 mmHg. GI and DVT prophylaxis - On Eliquis 5mg BID Discussed with patient's and Rogelio Mcnulty ([employer]ID REGENERATOR) with [facility] Continue treatment plan.
--- NOTE | 2018-05-18 20:47 | P.PNGI ---
Subjective Interval history: Patient laying comfortably in bed denies any pain tolerating intake Physical Exam Vital signs: Vital Signs 05/18/18 00:00 05/18/18 01:46 05/18/18 04:00 Temperature 98.3 F 98.4 F Pulse Rate 68 68 Respiratory Rate 17 17 17 Blood Pressure 125/69 118/55 L Pulse Oximetry 93 L 93 L 05/18/18 08:00 05/18/18 08:32 05/18/18 11:21 Temperature 97.9 F Pulse Rate 83 68 59 L Respiratory Rate 18 16 16 Blood Pressure 137/60 Pulse Oximetry 91 L 05/18/18 11:53 05/18/18 15:37 05/18/18 16:00 Temperature 97.8 F 97.9 F Pulse Rate 85 73 71 Respiratory Rate 19 16 18 Blood Pressure 111/53 L 98/57 L Pulse Oximetry 96 97 05/18/18 16:02 05/18/18 16:04 Temperature Pulse Rate 72 80 Respiratory Rate Blood Pressure 91/51 L 103/56 L Pulse Oximetry Intake & Output 05/18/18 05/18/18 05/19/18 06:59 18:59 06:59 Intake Total 1060 / 1060 Output Total 900 / 900 Balance 160 / 160 Weight 152.4 kg Intake: IV 100 / 100 Rocephin Inj 1,000 MG In NS Inj 100 / 100 100 ML @ 200 mls/hr IV.SIG Q24H [facility] Rx#:[id number] Oral 960 / 960 Output: Urine 900 / 900 Other: Date of Last Bowel Movement 05/17/18 - Constitutional no acute distress - Routine HEENT Exam Head: Present: normocephalic Eye: Present: EOMI - Routine Neck Exam Present: supple - Routine Respiratory Exam Present: CTA bilaterally - Routine Cardiovascular Exam Present: RRR - Routine Abdominal Exam Present: soft (Morbidly obese) - Routine Extremities Exam Absent: cyanosis, clubbing Results - Labs CBC & Chem 7: 05/17/18 03:23 05/17/18 03:23 Laboratory Results - last 24 hr 05/18/18 05/18/18 05/18/18 02:37 08:13 11:23 POC Glucose 343 H 387 H 399 H 05/18/18 05/18/18 16:57 20:24 POC Glucose 164 H 484 H* - Imaging Impressions Cervical Spine CT 05/17/18 00:00 CONCLUSION: 1. No acute findings in the cervical spine. The bony spinal canal is normal in size. 2. Advanced degenerative changes at the endplates and facet joints, similar to recent CT. Thoracic Spine CT 05/17/18 00:00 CONCLUSION: 1. Vertebral bodies of the thoracic spine are intact without focal bony destruction. The bony spinal canal is intact. Exam. Assessment and Plan (1) GI bleed Status: Acute Code(s): K92.2 - Gastrointestinal hemorrhage, unspecified (2) Anemia Status: Acute Code(s): D64.9 - Anemia, unspecified - Plan 67-year-old overweight male comes into the hospital on 05/12/2018 with symptomatic anemia, melena stools, GI bleed, and falls, syncopal episodes 3 at home over the past week. Current symptoms have been going on off and on for 2 weeks, aggregating symptoms are probably related to Eliquis and Plavix dual anticoagulation for his atrial fib. According to the record patient had positive Hemoccult in the ER setting. Hemoglobin on admission was 7.8 and decreased to 7.4. Patient received 1 unit packed RBCs, PT/INR 1. EGD colonoscopy approximately [address] Harper possible history of polyps and patient notes previous colon resection but unknown timing. Patient denies history of colon cancer but states polyp removed? Eliquis and Plavix are on hold for 05/13/2018. Gastroenterology has been consulted to assist with his care and evaluate his symptoms. EGD colonoscopy has been discussed with patient. When entered the room patient had been given GoLYTELY per hospitalist on admission to drink throughout the evening but patient denies any bowel movement he has drank approximately 60% of the GoLYTELY, but states he will not drink anymore. 05/15/2018 patient's currently resting in the bed awake and alert with some mild anxiety. 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 Results were discussed again with patient and the findings and recommendations. Capsule endoscopy if patient continues to have problems with anemia and unstable hemoglobin patient states he has already had this procedure before. Repeat colonoscopy in one year. Current hemoglobin is 8.5 mildly decreased and WBC count 17.3. Patient continues to complain today of right lower quadrant and right-sided abdominal pain which he states started post colonoscopy yesterday he states the pain does wax and wane but does have a sharp consistency at times. Patient states no bowel movement since colonoscopy prep which is only been 24-30 hours. Family member on the phone discussed again findings of EGD/colonoscopy in the need to have patient evaluated for his Eliquis and Plavix related to his GI bleeds and findings. Patient is high risk for bleeds especially with dual anticoagulant therapy. CT scan without contrast ordered for today to evaluate new abdominal pain and to rule out any new issues. According to the record patient is back on his Plavix dose today. 05/16/18 Pt is resting in bed, still with RLQ pain, had some nausea and vomiting last night, no bleeding reported. Endorses constipation. He had multiple syncopal episodes yesterday and currently being worked up for this, cardiology, pulmonology and neurology consulted hgb is improving. Abdomen/Pelvis CT 05/15/18 1. Eventration of the right hemidiaphragm 2. Moderate gaseous distention of the hepatic flexure in the right upper quadrant with a component of this sitting anterior to the liver 3. Gallbladder surgically absent 4. Previous transpedicular lumbar fixation. 05/17/2018 patient is resting in the bed lying on his back. Abdominal discomfort secondary to pressure and still has some positive abdominal tympany. Has soft bowel sounds. No BM in 3 days and patient has no urgency. ] KUB showed no disproportionate large and small bowel loops. Constipation is probably secondary to decreased motility and extended bed rest. is in the room. Hemoglobin 8.8 without any obvious bleeding we will continue to monitor. Supportive care to both and patient. No obvious bleeding but continue to monitor hemoglobin Plan Diet as tolerated per attending Consider CE as an op patient should follow-up with GI post discharge PPI Zofran Monitor labs and transfuse as necessary Not much to add at this point from a GI perspective we will sign off (1) GI bleed Qualifiers: GI bleed type/associated pathology: unspecified gastrointestinal hemorrhage type Qualified Code(s): K92.2 - Gastrointestinal hemorrhage, unspecified (2) Anemia Qualifiers: Anemia type: unspecified type Qualified Code(s): D64.9 - Anemia, unspecified
[2018-05-18] MEDS: Metoprolol Tartrate 50 MG Tablet PO SCH (21:50)
[2018-05-19] MEDS: Insulin NovoLOG Aspart Correctional Sugar Inj SQ SCH ×5 (02:49→21:09)
[2018-05-19] MEDS: hydroCHLOROthiazide 25 MG Tablet PO SCH (08:53)
[2018-05-19] MEDS: Methylnaltrexone Inj 12 MG/0.6 ML Vial SQ SCH (08:53)
[2018-05-19] MEDS: Duloxetine 60 MG DR Capsule PO SCH (08:53)
[2018-05-19] MEDS: levETIRAcetam 500 MG Tablet PO SCH ×2 (08:53→21:07)
[2018-05-19] MEDS: metOLazone 5 MG Tablet PO SCH (08:53)
[2018-05-19] MEDS: Metoprolol Tartrate 50 MG Tablet PO SCH ×2 (08:53→21:07)
[2018-05-19] MEDS: Glimepiride 2 MG Tablet PO SCH (08:54)
[2018-05-19] MEDS: MethylPREDNISolone Sod Succinate Inj 40 MG/ML Vial IV.PUSH SCH (08:54)
[2018-05-19] MEDS: Budesonide-Formoterol 160/4.5 MCG 6 GM Inhaler INH SCH ×2 (08:54→22:36)
[2018-05-19] MEDS: Lidocaine 5% Patch T-DERMAL SCH (08:55)
[2018-05-19] MEDS: Furosemide 40 MG Tablet PO SCH (08:55)
[2018-05-19] MEDS: Amiodarone 200 MG Tablet PO SCH (08:55)
--- NOTE | 2018-05-19 09:00 | P.PN ---
Subjective Interval history: Follow-up visit for anemia, syncopal episodes, A. fib, sleep apnea and CHF. Patient is seen and examined resting in bed comfortably with at bedside, patient eating breakfast this morning. reports no syncopal episodes yesterday, one episode of weakness when transferring from the commode. Orthostatics were negative yesterday. Discussed attempted a EEG however refused. 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 Discussed increasing long-acting insulin, switching back to Novolin NPH for glycemic control. Blood pressure also on the low side around 4 PM yesterday, losartan decreased and metoprolol dose decreased , discussed with and patient. Discussed increasing activity close to bedside today in case syncopal episode occurred. Patient does not report any acute complaints or concerns this morning. Asking when he will be able to go home. Physical Exam Vital signs: Vital Signs 05/18/18 11:21 05/18/18 11:53 05/18/18 15:37 Temperature 97.8 F Pulse Rate 59 L 85 73 Respiratory Rate 16 19 16 Blood Pressure 111/53 L Pulse Oximetry 96 05/18/18 16:00 05/18/18 16:02 05/18/18 16:04 Temperature 97.9 F Pulse Rate 71 72 80 Respiratory Rate 18 Blood Pressure 98/57 L 91/51 L 103/56 L Pulse Oximetry 97 05/18/18 19:00 05/18/18 20:00 05/18/18 21:07 Temperature 97.4 F L Pulse Rate 98 H 76 63 Respiratory Rate 18 20 18 Blood Pressure 115/55 L Pulse Oximetry 98 05/18/18 23:05 05/19/18 00:57 05/19/18 03:19 Temperature 97.5 F L 97.7 F Pulse Rate 74 76 64 Respiratory Rate 19 18 Blood Pressure 127/58 L 122/58 L Pulse Oximetry 96 95 05/19/18 07:09 05/19/18 08:00 05/19/18 08:07 Temperature 97.8 F Pulse Rate 60 65 60 Respiratory Rate 18 18 18 Blood Pressure 163/68 H Pulse Oximetry 95 95 Intake & Output 05/18/18 05/19/18 05/19/18 18:59 06:59 18:59 Intake Total 1060 / 1060 720 / 720 Output Total 900 / 900 1225 / 1225 Balance 160 / 160 -505 / -505 Weight 152.4 kg Intake: IV 100 / 100 Rocephin Inj 1,000 MG In NS Inj 100 / 100 100 ML @ 200 mls/hr IV.SIG Q24H [facility] Rx#:[id number] Oral 960 / 960 720 / 720 Output: Urine 900 / 900 1225 / 1225 Other: Date of Last Bowel Movement 05/17/18 05/17/18 # Bowel Movements 0 Narrative: GENERAL: Well developed, obese male in no acute distress. SKIN: Warm and dry. HEAD: Normocephalic. EYES: No scleral icterus. No injection or drainage. NECK: Supple, trachea midline. CARDIOVASCULAR: Regular rate and rhythm without murmurs, gallops, or rubs. RESPIRATORY: Upper breath sounds clear, lower breath sounds diminished due to body habitus. No accessory muscle use. GASTROINTESTINAL: Abdomen soft, non-tender, nondistended. Normoactive bowel sounds. MUSCULOSKELETAL: No cyanosis, or edema. Moving all extremities spontaneously, left upper extremity range of motion decreased secondary to pain. NEUROLOGICAL: Patient is awake, alert, oriented 3 looking around. Moving all extremities spontaneously, speech is clear, no facial droop. BACK: Nontender without obvious deformity. No CVA tenderness. Results - Labs CBC & Chem 7: 05/17/18 03:23 05/17/18 03:23 Laboratory Results - last 24 hr 05/18/18 05/18/18 05/18/18 11:23 16:57 20:24 POC Glucose 399 H 164 H 484 H* 05/19/18 05/19/18 02:34 07:50 POC Glucose 492 H* 298 H Microbiology 05/18/18 13:20 Sputum - Expectorated Sputum Gram Stain - Final Assessment and Plan - Assessment (1) Generalized weakness Code(s): R53.1 - Weakness Status: Acute - Plan 67-year-old male with a past medical history significant for atrial fibrillation anticoagulated on Eliquis, diabetes mellitus, coronary artery disease status post SC, CHF (last ejection fraction 55%), COPD and a history of breast, colon and prostate cancers presents to ED on 05/12 due to syncopal episode. Symptomatic anemia/syncope/lower GI bleed H&H 7.8/25.0 Hemoccult positive ED with history of black, tarry stools - Gastroenterology consulted, appreciate recommendations - s/p 1 unit of PRBCs transfused -Status post EGD with snare polypectomy and colonoscopy with snare polypectomy and fulguration of AVM's 05/14. Procedure revealed gastric polyps, cecal AVM's, colon polyp and colon diverticulosis -H&H stable, continue monitoring for black or bloody stools, none thus far. -Lower abdominal pain, GI ordered CT of abd/pelvis: Eventration of right hemidiaphragm, moderate gaseous distention of hepatic flexure in the right upper quadrant with component sitting anterior to the liver, previous transpedicular lumbar fixation, otherwise negative. -KUB 05/16 showed no disproportion needed dilated loops of small or large bowel, limited quality exam - + BM's no abd. pain Syncope. Recurrent presyncopal/syncopal episodes -Cardiology consulted, and evaluated patient. Placed consult once again for reevaluation of patient due to ongoing syncopal episodes as well as 's request, greatly appreciate assistance and input. -Loop recorder interrogated, [facility] report noted sinus rhythm with PACs ( phone number [phone]) -2D echo showing EF 5560%, normal LV size, mild to moderate concentric left ventricular hypertrophy, no definitive wall motion abnormalities, moderate mitral annular calcification, mild aortic valve stenosis present -Bilateral carotid ultrasound with less than 50% stenosis -Bilateral upper and lower extremity ultrasounds negative for DVT -EEG with mild encephalopathy and sleep -Neurology Dr. Nichols evaluated patient, on low-dose Keppra for possible seizure activity. -CT of C-spine and T- spine to due to possible clonus. - CT- T spine: Negative, CT of T-spine: Advanced degenerative changes at the endplates and facet joints, similar to recent CT. -Orthostatic BP's + on 05/19 (supine 162/68, sitting 140/63, standing 130/63) had a drop of 25mmHg w/ standing on systolic pressure. - BP medications adjusted, encourage mobility. Hyperglycemia/diabetes mellitus -Blood sugars continue to be elevated. On cardiac and diabetic diet -NovoLog 50 units at ADM, NovoLog 20 units at 8 PM (as requested per ) Levemir switched to Novolin N 70units in a.m and 75 units HS, Accu-Cheks, sliding scale high coverage -Continue 2 mg of glimepiride -Monitor blood glucose Hypokalemia Hyponatremia, mild - s/p K replacement, K 4.1 -Mild hyponatremia with sodium level 130, possibly related to hydrochlorothiazide, continue to monitor Atrial fibrillation, chronic -Continue amiodarone/metoprolol -Previously discussed with [facility] to resume Eliquis, patient high risk for bleeding, continue monitoring closely. CHF/CAD Status post SC -Continue beta-gunner, diuretics, as recommended by cardiology services -Continue home medications - Losartan and metoprolol decreased to + orthostatics Left shoulder rotator cuff injury Right finger pain - Right hand x-ray negative for fractures. -X-ray reviewed, no acute abnormality, mild osteoarthritis at the acromioclavicular joint, continue Lidoderm patch. Sleep apnea-attending home CPAP machine -Consult pulmonary for further recommendations. JUNIOR -Creatinine continues to improve, continue monitoring and avoid nephrotoxins -Slight improvement in creatinine. Leukocytosis, chronic -Patient with a history of leukocytosis dating back to 2017 upon review of EMR -Possibly related to steroid use recently -Blood cultures collected on 05/12 with no growth to date -Pulmonary has started ceftriaxone and consulted infectious disease for further recommendations -Patient afebrile with no suspected source of infection RLS -Continue home dose Requip Sleep apnea -Pulmonary services following, greatly appreciate assistance. DVT prophylaxis-Lindaquramakrishna Discussed Condition With: Discussed with patient, , nurse, PT. Encouraged patient to increase activity with staff present. Medications have been adjusted to help decrease chance of orthostatic hypotension. Discharge Planning: Will need clearance from neurology, increase activity without syncopal episodes.
[2018-05-19] MEDS: Senna/Docusate Sodium 8.6/50 MG Tablet PO SCH ×2 (09:05→21:06)
--- NOTE | 2018-05-19 10:32 | P.PNPL ---
Subjective Interval history: No events overnight. Patient is sitting up in bed in NAD. Afebrile, on room air oxygen when seen. Physical Exam Vital signs: Vital Signs 05/18/18 11:21 05/18/18 11:53 05/18/18 15:37 Temperature 97.8 F Pulse Rate 59 L 85 73 Respiratory Rate 16 19 16 Blood Pressure 111/53 L Pulse Oximetry 96 05/18/18 16:00 05/18/18 16:02 05/18/18 16:04 Temperature 97.9 F Pulse Rate 71 72 80 Respiratory Rate 18 Blood Pressure 98/57 L 91/51 L 103/56 L Pulse Oximetry 97 05/18/18 19:00 05/18/18 20:00 05/18/18 21:07 Temperature 97.4 F L Pulse Rate 98 H 76 63 Respiratory Rate 18 20 18 Blood Pressure 115/55 L Pulse Oximetry 98 05/18/18 23:05 05/19/18 00:57 05/19/18 03:19 Temperature 97.5 F L 97.7 F Pulse Rate 74 76 64 Respiratory Rate 19 18 Blood Pressure 127/58 L 122/58 L Pulse Oximetry 96 95 05/19/18 07:09 05/19/18 08:00 05/19/18 08:07 Temperature 97.8 F Pulse Rate 60 65 60 Respiratory Rate 18 18 18 Blood Pressure 163/68 H Pulse Oximetry 95 95 Intake & Output 05/18/18 05/19/18 05/19/18 18:59 06:59 18:59 Intake Total 1060 / 1060 720 / 720 Output Total 900 / 900 1225 / 1225 Balance 160 / 160 -505 / -505 Weight 152.4 kg Intake: IV 100 / 100 Rocephin Inj 1,000 MG In NS Inj 100 / 100 100 ML @ 200 mls/hr IV.SIG Q24H [facility] Rx#:[id number] Oral 960 / 960 720 / 720 Output: Urine 900 / 900 1225 / 1225 Other: Date of Last Bowel Movement 05/17/18 05/17/18 # Bowel Movements 0 - Constitutional no acute distress, morbidly obese - Routine HEENT Exam Head: Present: normocephalic, atraumatic Eye: Present: EOMI, PERRL, normal accommodation, conjunctivae pink ENT: Present: mucous membranes moist - Routine Neck Exam Present: supple, full ROM, trachea midline - Routine Respiratory Exam Present: CTA bilaterally - Routine Cardiovascular Exam Present: RRR, S1, S2 - Routine Abdominal Exam Present: soft, normoactive bowel sounds - Routine Extremities Exam Present: edema, full ROM - Routine Skin Exam Present: intact - Routine Neurological Exam Present: alert, oriented X3, CN II-XII intact Assessment and Plan - Plan 1. Acute hypoxemic and hypercapnic respiratory failure. 2. Obesity hypoventilation syndrome. 3. Morbid obesity. 4. COPD 5. History of tobacco abuse. 6. Leukocytosis. 7. Anemia. 8. Mild acute kidney injury. 9. History of atrial fibrillation, on Eliquis, currently on hold. 10. Diabetes mellitus. 11. Coronary artery disease. 12. Hypertension. Plan Monitor neuro status closely and avoid any sedatives. Oxygen p.r.n. to maintain sats > 92%. Continue with bronchodilators-DuoNeb/Symbicort On Requip for RLS Taper steroids- on Solu-Medrol 40 mg IV daily BiPAP nocturnally and p.r.n. for respiratory distress. CT chest 05/16;. Minimal parenchymal opacity at the left base. Continue with abx (Rocephin) x 7 days per ID Sputum cx 05/18: Normal resp johnnie BC from 06/12: NGTD. ID is following Doppler US LE, UE: No evidence of thrombosis Echo showed EF of 55-60%, normal LV size and function and PASP of 29 mmHg. GI and DVT prophylaxis - On Eliquis 5mg BID Discussed with patient's and all questions answered. Continue treatment plan.
--- NOTE | 2018-05-19 10:50 | P.PNNEU ---
Subjective Subjective Comments: Slept a lot yesterday no events. Blood pressures noted one set of systolics in the 90s Active Medications: Active Medications Hydrocodone Bitart/Acetaminophen (Pritchett 10/325) 1 tab PO Q6H PRN PRN Reason: Pain 2-10 Al Hydroxide/Mg Hydroxide (Milk Of Marianne Liq) 30 ml PO Q12H PRN PRN Reason: Mild Constipation Albuterol (Duoneb Neb (Prn)) 1 ampul NEB Q2HR NEB PRN PRN Reason: DYSPNEA Albuterol (Duoneb Neb (Sussy)) 1 ampul NEB Q4HR NEB [facility] Last Admin: 05/19/18 08:05 Dose: 1 ampul Amiodarone HCl (Cordarone) 200 mg PO DAILY [facility] Last Admin: 05/19/18 08:55 Dose: 200 mg Amlodipine Besylate (Norvasc) 5 mg PO DAILY [facility] Last Admin: 05/15/18 08:45 Dose: 5 mg Apixaban (Eliquis) 5 mg PO BID [facility] Last Admin: 05/19/18 08:54 Dose: 5 mg Aspirin (Aspirin Chew) 81 mg PO DAILY [facility] Last Admin: 05/17/18 11:01 Dose: Not Given Atorvastatin Calcium (Lipitor) 10 mg PO HS [facility] Last Admin: 05/18/18 21:50 Dose: 10 mg Bisacodyl (Dulcolax Supp) 10 mg RECTAL DAILY PRN PRN Reason: SEVERE CONSITIPATION Budesonide/Formoterol Fumarate (Symbicort 160/4.5 Mcg Inh) 2 puff INH BID [facility] Last Admin: 05/19/18 08:54 Dose: 2 puff Clopidogrel Bisulfate (Plavix) 75 mg PO DAILY [facility] Last Admin: 05/19/18 08:53 Dose: 75 mg Dextrose (D50w Vial) 50 ml IV.PUSH UNSCH PRN PRN Reason: PER HYPOGLYCEMIA PROTOCOL Duloxetine HCl (Cymbalta) 60 mg PO DAILY [facility] Last Admin: 05/19/18 08:53 Dose: 60 mg Furosemide (Lasix) 40 mg PO DAILY [facility] Last Admin: 05/19/18 08:55 Dose: 40 mg Gabapentin (Neurontin) 600 mg PO BID [facility] Last Admin: 05/16/18 08:20 Dose: 600 mg Glimepiride (Amaryl) 2 mg PO DAILY [facility] Last Admin: 05/19/18 08:54 Dose: 2 mg Glucagon (Glucagon Inj) 1 mg OTHER PRN PRN PRN Reason: for Hypoglycemia Protocol Hydrochlorothiazide (Hydrodiuril) 25 mg PO DAILY [facility] Last Admin: 05/19/18 08:53 Dose: 25 mg Ceftriaxone Sodium 1,000 mg/ (Sodium Chloride) 100 mls @ 200 mls/hr IV.SIG Q24H [facility] Last Infusion: 05/18/18 15:41 Dose: Infused Insulin Aspart (Novolog Insulin Correctional Sugar Inj) 0 unit SQ ACHS AND 3AM SUSSY; Protocol Last Admin: 05/19/18 08:55 Dose: 15 unit Insulin Aspart (Novolog Inj) 50 units SQ DAILY@0800 [facility] Last Admin: 05/19/18 08:55 Dose: 50 units Insulin Aspart (Novolog Inj) 20 units SQ DAILY@2000 [facility] Last Admin: 05/18/18 21:45 Dose: 20 units Insulin Human NPH (Novolin N Inj) 75 units SQ HS SUSSY Insulin Human NPH (Novolin N Inj) 70 units SQ DAILY@0800 [facility] Last Admin: 05/19/18 08:56 Dose: 70 units Lactulose (Lactulose Liq) 30 ml PO DAILY PRN PRN Reason: SEVERE CONSITIPATION Levetiracetam (Keppra) 500 mg PO BID [facility] Last Admin: 05/19/18 08:53 Dose: 500 mg Lidocaine HCl (Lidoderm 5% Patch.12 Hr) 1 patch T-DERMAL DAILY [facility] Last Admin: 05/19/18 08:55 Dose: 1 patch Losartan Potassium (Cozaar) 50 mg PO DAILY [facility] Last Admin: 05/19/18 08:55 Dose: 50 mg Methylnaltrexone [place] (Relistor) 12 mg SQ DAILY [facility] Stop: 05/20/18 09:01 Last Admin: 05/19/18 08:53 Dose: 12 mg Methylprednisolone Sodium Succinate (Solumedrol Inj) 40 mg IV.PUSH DAILY [facility] Last Admin: 05/19/18 08:54 Dose: 40 mg Metolazone (Zaroxolyn) 5 mg PO DAILY [facility] Last Admin: 05/19/18 08:53 Dose: 5 mg Metoprolol Tartrate (Lopressor) 50 mg PO BID [facility] Last Admin: 05/19/18 08:53 Dose: 50 mg Naloxone HCl (Narcan Inj) 0.4 mg IV.PUSH UNSCH PRN PRN Reason: SEE LABEL COMMENTS Ondansetron HCl (Zofran Inj) 4 mg IV.PUSH Q6H PRN PRN Reason: NAUSEA Last Admin: 05/16/18 06:18 Dose: 4 mg Pantoprazole Sodium (Protonix) 40 mg PO DAILY [facility] Last Admin: 05/19/18 08:53 Dose: 40 mg Patch Removal (Remove Old Patch) 1 each T-DERMAL HS [facility] Last Admin: 05/18/18 21:51 Dose: 1 each Ropinirole HCl (Requip) 0.5 mg PO DAILY [facility] Last Admin: 05/19/18 08:53 Dose: 0.5 mg Ropinirole HCl (Requip) 1 mg PO HS [facility] Last Admin: 05/18/18 21:50 Dose: 1 mg Senna/Docusate Sodium (Danielle-Colace) 1 tab PO BID [facility] Last Admin: 05/19/18 09:05 Dose: Not Given Sennosides (Senokot) 17.2 mg PO Q12H PRN PRN Reason: Moderate Constipation Sodium Chloride (Ns Flush) 2 ml IV.FLUSH PRN PRN PRN Reason: FLUSH AFTER USING IV ACCESS Sodium Chloride (Ns Flush) 2 ml IV.FLUSH BID [facility] Last Admin: 05/19/18 09:05 Dose: Not Given Allergies/Adverse Reactions: Allergies Allergy/AdvReac Type Severity Reaction Status Date / Time adhesive Allergy Severe Rash Verified 05/12/18 19:12 atorvastatin Allergy Severe MUSCLE Verified 05/12/18 19:12 WEAKNESS pravastatin Allergy Severe MUSCLE Verified 05/12/18 19:12 WEAKNESS rosuvastatin Allergy Severe MUSCLE Verified 05/12/18 19:12 WEAKNESS morphine AdvReac Severe BECOMES Verified 05/12/18 19:12 VERY AGGRESSIVE Review of Systems All other systems reviewed negative except as stated in HPI Physical Exam Vital signs: Vital Signs 05/18/18 11:21 05/18/18 11:53 05/18/18 15:37 Temperature 97.8 F Pulse Rate 59 L 85 73 Respiratory Rate 16 19 16 Blood Pressure 111/53 L Pulse Oximetry 96 05/18/18 16:00 05/18/18 16:02 05/18/18 16:04 Temperature 97.9 F Pulse Rate 71 72 80 Respiratory Rate 18 Blood Pressure 98/57 L 91/51 L 103/56 L Pulse Oximetry 97 05/18/18 19:00 05/18/18 20:00 05/18/18 21:07 Temperature 97.4 F L Pulse Rate 98 H 76 63 Respiratory Rate 18 20 18 Blood Pressure 115/55 L Pulse Oximetry 98 05/18/18 23:05 05/19/18 00:57 05/19/18 03:19 Temperature 97.5 F L 97.7 F Pulse Rate 74 76 64 Respiratory Rate 19 18 Blood Pressure 127/58 L 122/58 L Pulse Oximetry 96 95 05/19/18 07:09 05/19/18 08:00 05/19/18 08:07 Temperature 97.8 F Pulse Rate 60 65 60 Respiratory Rate 18 18 18 Blood Pressure 163/68 H Pulse Oximetry 95 95 Intake & Output 05/18/18 05/19/18 05/19/18 18:59 06:59 18:59 Intake Total 1060 / 1060 720 / 720 Output Total 900 / 900 1225 / 1225 Balance 160 / 160 -505 / -505 Weight 152.4 kg Intake: IV 100 / 100 Rocephin Inj 1,000 MG In NS Inj 100 / 100 100 ML @ 200 mls/hr IV.SIG Q24H [facility] Rx#:[id number] Oral 960 / 960 720 / 720 Output: Urine 900 / 900 1225 / 1225 Other: Date of Last Bowel Movement 05/17/18 05/17/18 # Bowel Movements 0 Narrative: GENERAL: Well developed, obese male in no acute distress. SKIN: Warm and dry. HEAD: Normocephalic. EYES: No scleral icterus. No injection or drainage. NECK: Supple, trachea midline. CARDIOVASCULAR: Regular rate and rhythm RESPIRATORY: No accessory muscle use. GASTROINTESTINAL: Abdomen soft, non-tender, nondistended. MUSCULOSKELETAL: No cyanosis, or edema. Moving all extremities spontaneously, left upper extremity range of motion decreased secondary to pain. NEUROLOGICAL: Patient is awake, alert, oriented 3. Articulate fluent follows motor request, extraocular once intact no facial asymmetry moving all extremities to gravity - Constitutional no acute distress - Routine HEENT Exam Head: Present: normocephalic Eye: Present: EOMI Objective Laboratory Results - last 24 hr 05/18/18 05/18/18 05/18/18 11:23 16:57 20:24 POC Glucose 399 H 164 H 484 H* 05/19/18 05/19/18 02:34 07:50 POC Glucose 492 H* 298 H Microbiology 05/18/18 13:20 Gram Stain - Final Sputum - Expectorated Sputum Sputum Culture - Preliminary Light growth normal respiratory johnnie at 24 hours Review/Management - Diagnosis (1) GI bleed Code(s): K92.2 - Gastrointestinal hemorrhage, unspecified Status: Acute Current Visit: Yes (2) Anemia Code(s): D64.9 - Anemia, unspecified Status: Acute Current Visit: Yes (3) Syncope Code(s): R55 - Syncope and collapse Status: Acute Current Visit: Yes (4) Generalized weakness Code(s): R53.1 - Weakness Status: Acute Current Visit: Yes - Review/Management Plan: CT C-spine, T-spine shows arthritis no fracture no obvious significant stenosis Syncopal weakness likely related to orthostatic hypotension, anemia deconditioning Recommendations We will repeat routine EEG Continue orthostatics Requested for him to set up in bed more; try to move his legs knee raises and dorsiflexion plantarflexion of his foot to help circulate his blood which would also help reduce his episodes I suspect Glucose control Hydration On telemetry cardiology following PT as tolerated Weight loss is a long-term goal Dr. Nichols to follow tomorrow Discussed with patient/spouse (1) GI bleed Qualifiers: Qualified Code(s): K92.2 - Gastrointestinal hemorrhage, unspecified (2) Anemia Qualifiers: Qualified Code(s): D64.9 - Anemia, unspecified (3) Syncope Qualifiers: Qualified Code(s): R55 - Syncope and collapse
[2018-05-19 21:33] LABS: Baso % (Auto) 0.1 % (0.0-2.0); Hematocrit 30.2 % (39.0-51.0); Hemoglobin 9.3 gm/dL (13.0-17.0); Lymph # (Auto) 1.6 th/mm3 (1.0-4.8); Lymph % (Auto) 9.9 % (9.0-44.0); Mean Corpuscular Hemoglobin 22.4 pg (27.0-34.0); Mean Corpuscular Volume 73.1 fL (80.0-100.0); Mean Platelet Volume 7.2 fL (7.0-11.0); Mono % (Auto) 6.3 % (0.0-8.0); Neut # (Auto) 13.9 th/mm3 (1.8-7.7); Neut % (Auto) 83.7 % (16.0-70.0); Platelet Count 270 th/mm3 (150-450); Red Blood Count 4.13 mil/mm3 (4.50-5.90); Red Cell Distribution Width 22.1 % (11.6-17.2); White Blood Count 16.6 th/mm3 (4.0-11.0)
[2018-05-19 21:35] LABS: Mean Corpuscular HGB Conc 30.7 % (32.0-36.0)
--- NOTE | 2018-05-19 21:48 | MG ---
cc: Kal Lange MD Initially some theta delta bursts followed by 6-7 Hz activity, 20-40 microvolts. Frequent movement artifacts and sweat sway artifact, on a drowsy state, during wakefulness. Limited driving with photic stimulation. EKG showing some irregularity. Good EEG variability reactivity. INTERPRETATION: Minimal encephalopathy and sleep state with artifact. Clinical correlation. Kal Lange MD MG/sj , 09:21 PM , 09:25 PM
[2018-05-19 21:54] LABS: Calcium 9.1 mg/dL (8.5-10.1); Carbon Dioxide 28.2 meq/L (21.0-32.0); Potassium 3.7 meq/L (3.5-5.1)
[2018-05-20] MEDS: Insulin NovoLOG Aspart Correctional Sugar Inj SQ SCH ×5 (05:50→20:40)
[2018-05-20] MEDS: Duloxetine 60 MG DR Capsule PO SCH (08:43)
[2018-05-20] MEDS: hydroCHLOROthiazide 25 MG Tablet PO SCH (08:43)
[2018-05-20] MEDS: MethylPREDNISolone Sod Succinate Inj 40 MG/ML Vial IV.PUSH SCH (08:43)
[2018-05-20] MEDS: Glimepiride 2 MG Tablet PO SCH (08:43)
[2018-05-20] MEDS: Amiodarone 200 MG Tablet PO SCH (08:43)
[2018-05-20] MEDS: Senna/Docusate Sodium 8.6/50 MG Tablet PO SCH ×2 (08:43→20:39)
[2018-05-20] MEDS: levETIRAcetam 500 MG Tablet PO SCH (08:43)
[2018-05-20] MEDS: Methylnaltrexone Inj 12 MG/0.6 ML Vial SQ SCH (08:44)
[2018-05-20] MEDS: Furosemide 40 MG Tablet PO SCH (08:44)
[2018-05-20] MEDS: Metoprolol Tartrate 50 MG Tablet PO SCH ×2 (08:45→20:39)
[2018-05-20] MEDS: Lidocaine 5% Patch T-DERMAL SCH (08:45)
[2018-05-20] MEDS: Budesonide-Formoterol 160/4.5 MCG 6 GM Inhaler INH SCH ×2 (08:59→20:42)
[2018-05-20] MEDS: metOLazone 5 MG Tablet PO SCH (08:59)
--- NOTE | 2018-05-20 09:18 | P.PN ---
Subjective Interval history: Follow-up visit for anemia, syncopal episodes, A. fib, sleep apnea and CHF. Patient is seen and examined resting in bed comfortably in no acute distress with at bedside. Patient voices no acute complaints, asking when he will be able to go home. reports that patient was out of bed yesterday to the recliner with no events of syncope. She did notice that his right hand had some shaking however. No dizziness, lightheadedness, nausea, vomiting, diarrhea , cough or shortness of breath reported. Later in the afternoon physical therapy worked with patient. Physical therapist noted patient had some upper extremity tremors and shaking, no syncopal episode noted. Physical Exam Vital signs: Vital Signs 05/19/18 12:00 05/19/18 12:26 05/19/18 16:00 Temperature 97.4 F L 98.0 F Pulse Rate 67 67 64 Respiratory Rate 16 16 17 Blood Pressure 134/61 101/41 L Pulse Oximetry 94 L 94 L 05/19/18 17:03 05/19/18 17:33 05/19/18 19:33 Temperature Pulse Rate 76 Respiratory Rate 18 18 Blood Pressure Pulse Oximetry 05/19/18 19:39 05/19/18 19:46 05/19/18 21:23 Temperature 98.2 F Pulse Rate 65 70 Respiratory Rate 19 16 Blood Pressure 132/60 Pulse Oximetry 96 94 L 05/19/18 23:58 05/20/18 00:09 05/20/18 02:00 Temperature 97.7 F Pulse Rate 68 65 Respiratory Rate 18 17 Blood Pressure 124/59 L Pulse Oximetry 95 05/20/18 03:34 05/20/18 04:00 05/20/18 07:42 Temperature 98.2 F Pulse Rate 67 59 L 53 L Respiratory Rate 19 16 Blood Pressure 135/63 Pulse Oximetry 95 95 05/20/18 08:00 Temperature 97.8 F Pulse Rate 58 L Respiratory Rate 19 Blood Pressure 112/52 L Pulse Oximetry 92 L Intake & Output 05/19/18 05/20/18 05/20/18 18:59 06:59 18:59 Intake Total 600 / 600 480 / 480 Output Total 2300 / 2300 Balance -1700 / -1700 480 / 480 Weight 152.4 kg Intake: IV 100 / 100 Rocephin Inj 1,000 MG In NS Inj 100 / 100 100 ML @ 200 mls/hr IV.SIG Q24H [facility] Rx#:[id number] Oral 500 / 500 480 / 480 Output: Urine 2300 / 2300 Other: # Voids 1 Date of Last Bowel Movement 05/17/18 05/17/18 # Bowel Movements 0 Narrative: GENERAL: Well developed, obese male in no acute distress. SKIN: Warm and dry. HEAD: Normocephalic. EYES: No scleral icterus. No injection or drainage. NECK: Supple, trachea midline. CARDIOVASCULAR: Regular rate and rhythm without murmurs, gallops, or rubs. RESPIRATORY: Upper breath sounds clear, lower breath sounds diminished due to body habitus. No accessory muscle use. GASTROINTESTINAL: Abdomen soft, non-tender, nondistended. Normoactive bowel sounds. MUSCULOSKELETAL: No cyanosis, or edema. Moving all extremities spontaneously, left upper extremity range of motion decreased secondary to pain. NEUROLOGICAL: Patient is awake, alert, oriented 3 looking around. Moving all extremities spontaneously, speech is clear, no facial droop. BACK: Nontender without obvious deformity. No CVA tenderness. Results - Labs CBC & Chem 7: 05/19/18 20:08 05/19/18 20:08 Laboratory Results - last 24 hr 05/19/18 05/19/18 05/19/18 12:25 16:13 20:08 WBC 16.6 H RBC 4.13 L Hgb 9.3 L Hct 30.2 L MCV 73.1 L MCH 22.4 L MCHC 30.7 L RDW 22.1 H Plt Count 270 MPV 7.2 Neut % (Auto) 83.7 H Lymph % (Auto) 9.9 [place] % (Auto) 6.3 Eos % (Auto) 0.0 Baso % (Auto) 0.1 Neut # (Auto) 13.9 H Lymph # (Auto) 1.6 [place] # (Auto) 1.0 H Eos # (Auto) 0.0 Baso # (Auto) 0.0 WBC Differential . Differential Comment Auto diff final Sodium Potassium Chloride Carbon Dioxide Anion Gap BUN Creatinine Estimated GFR POC Glucose 214 H 170 H Random Glucose Calcium 05/19/18 05/19/18 05/20/18 20:08 20:55 00:07 WBC RBC Hgb Hct MCV MCH MCHC RDW Plt Count MPV Neut % (Auto) Lymph % (Auto) [place] % (Auto) Eos % (Auto) Baso % (Auto) Neut # (Auto) Lymph # (Auto) [place] # (Auto) Eos # (Auto) Baso # (Auto) WBC Differential Differential Comment Sodium 132 L Potassium 3.7 Chloride 90 L Carbon Dioxide 28.2 Anion Gap 14 BUN 37 H Creatinine 1.62 H Estimated GFR 43 L POC Glucose 408 H 212 H Random Glucose 302 H Calcium 9.1 05/20/18 05/20/18 04:22 08:34 WBC RBC Hgb Hct MCV MCH MCHC RDW Plt Count MPV Neut % (Auto) Lymph % (Auto) [place] % (Auto) Eos % (Auto) Baso % (Auto) Neut # (Auto) Lymph # (Auto) [place] # (Auto) Eos # (Auto) Baso # (Auto) WBC Differential Differential Comment Sodium Potassium Chloride Carbon Dioxide Anion Gap BUN Creatinine Estimated GFR POC Glucose 91 123 H Random Glucose Calcium Microbiology 05/18/18 13:20 Sputum - Expectorated Sputum Gram Stain - Final 05/18/18 13:20 Sputum - Expectorated Sputum Sputum Culture - Preliminary Light growth normal respiratory johnnie at 24 hours Assessment and Plan - Assessment (1) Generalized weakness Code(s): R53.1 - Weakness Status: Acute - Plan 67-year-old male with a past medical history significant for atrial fibrillation anticoagulated on Eliquis, diabetes mellitus, coronary artery disease status post MS, CHF (last ejection fraction 55%), COPD and a history of breast, colon and prostate cancers presents to ED on 05/12 due to syncopal episode. Symptomatic anemia/syncope/lower GI bleed H&H 7.8/25.0 Hemoccult positive ED with history of black, tarry stools - Gastroenterology consulted, appreciate recommendations - s/p 1 unit of PRBCs transfused -Status post EGD with snare polypectomy and colonoscopy with snare polypectomy and fulguration of AVM's 05/14. Procedure revealed gastric polyps, cecal AVM's, colon polyp and colon diverticulosis -H&H stable, continue monitoring for black or bloody stools, none thus far. -Lower abdominal pain, GI ordered CT of abd/pelvis: Eventration of right hemidiaphragm, moderate gaseous distention of hepatic flexure in the right upper quadrant with component sitting anterior to the liver, previous transpedicular lumbar fixation, otherwise negative. -KUB 05/16 showed no disproportion needed dilated loops of small or large bowel, limited quality exam. s/p Relistor by GI - + BM's no abd. pain Syncope. Recurrent presyncopal/syncopal episodes -Cardiology consulted, and evaluated patient. Placed consult once again for reevaluation of patient due to ongoing syncopal episodes as well as 's request, greatly appreciate assistance and input. -Loop recorder interrogated, [employer] report noted sinus rhythm with PACs ( phone number [phone]) -2D echo showing EF 5560%, normal LV size, mild to moderate concentric left ventricular hypertrophy, no definitive wall motion abnormalities, moderate mitral annular calcification, mild aortic valve stenosis present -Bilateral carotid ultrasound with less than 50% stenosis -Bilateral upper and lower extremity ultrasounds negative for DVT -EEG with mild encephalopathy and sleep -Neurology Dr. Nichols evaluated patient, on low-dose Keppra for possible seizure activity. -CT of C-spine and T- spine to due to possible clonus. - CT- T spine: Negative, CT of T-spine: Advanced degenerative changes at the endplates and facet joints, similar to recent CT. -Orthostatic BP's + on 05/19 (supine 162/68, sitting 140/63, standing 130/63) had a drop of 25mmHg w/ standing on systolic pressure. -Blood pressure medications adjusted. -Discussed with Dr. Nichols 05/20, recommendations to discontinue Keppra, start low -dose Klonopin twice daily Hyperglycemia/diabetes mellitus -On cardiac and diabetic diet -NovoLog 50 units at ADM, NovoLog 20 units at 8 PM (as requested per ) Novolin N 70units in a.m and 75 units HS, Accu-Cheks, sliding scale high coverage -Continue 2 mg of glimepiride -BS improved Hypokalemia Hyponatremia, mild - s/p K replacement -Possibly related to hydrochlorothiazide, continue to monitor Atrial fibrillation, chronic HTN, chronic -Continue amiodarone/metoprolol -Eliquis resumed, discussed with GI previously. No bleeding noted. CHF/CAD Status post MS -Continue beta-gunner, diuretics, as recommended by cardiology services -Continue home medications - BP on normal/low side, losartan and Zaroxolyn discontinued. Left shoulder rotator cuff injury Right finger pain - Right hand x-ray negative for fractures. -X-ray reviewed, no acute abnormality, mild osteoarthritis at the acromioclavicular joint, continue Lidoderm patch. Sleep apnea-attending home CPAP machine -Consult pulmonary for further recommendations. JUNIOR -Monitor renal function intermittently. Persistent leukocytosis, chronic -Patient with a history of leukocytosis dating back to 2017 upon review of EMR -Possibly related to steroid use recently -Blood cultures collected on 05/12 with no growth to date -Pulmonary has started ceftriaxone and consulted infectious disease for further recommendations -Patient afebrile with no suspected source of infection - spoke with patient's pulmonary office. Recommends discharging and following up with outpatient clinic for ongoing antibiotic and steroid infusions. to follow up with patient. RLS -Continue home dose Requip Sleep apnea -Pulmonary services following, greatly appreciate assistance. -Cleared for discharge from pulmonary standpoint, discussed with Dr. 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 Discussed with , Dr. Conner, Dr. Kim, and Dr. Rawls Discharge Planning: Will need clearance from neurology, increase activity without syncopal episodes. Can follow-up with pulmonary services for ongoing antibiotic and steroid infusions per Dr. Conner
[2018-05-20] MEDS: Furosemide 20 MG Tablet PO SCH (12:21)
--- NOTE | 2018-05-20 18:45 | P.PN ---
Subjective Interval history: Up in bed and seems comfortable. On O2 3 L. Has used CPAP at HS. On IV Meds incl Rocephin and solumedrol Overall he is better. requests that Dr Little Singh be notified. Physical Exam Vital signs: Vital Signs 05/19/18 19:33 05/19/18 19:39 05/19/18 19:46 Temperature 98.2 F Pulse Rate 76 65 70 Respiratory Rate 19 16 Blood Pressure 132/60 Pulse Oximetry 96 05/19/18 21:23 05/19/18 23:58 05/20/18 00:09 Temperature 97.7 F Pulse Rate 68 65 Respiratory Rate 18 Blood Pressure 124/59 L Pulse Oximetry 94 L 95 05/20/18 02:00 05/20/18 03:34 05/20/18 04:00 Temperature 98.2 F Pulse Rate 67 59 L Respiratory Rate 17 19 Blood Pressure 135/63 Pulse Oximetry 95 05/20/18 07:42 05/20/18 08:00 05/20/18 12:00 Temperature 97.8 F 97.9 F Pulse Rate 53 L 58 L 66 Respiratory Rate 16 19 19 Blood Pressure 112/52 L 108/65 Pulse Oximetry 95 92 L 91 L 05/20/18 15:23 05/20/18 16:00 Temperature 97.6 F Pulse Rate 97 H 73 Respiratory Rate 15 19 Blood Pressure 120/59 L Pulse Oximetry 93 L Intake & Output 05/19/18 05/20/18 05/20/18 18:59 06:59 18:59 Intake Total 600 / 600 480 / 480 Output Total 2300 / 2300 800 / 800 Balance -1700 / -1700 480 / 480 -800 / -800 Weight 152.4 kg Intake: IV 100 / 100 Rocephin Inj 1,000 MG In NS Inj 100 / 100 100 ML @ 200 mls/hr IV.SIG Q24H [facility] Rx#:[id number] Oral 500 / 500 480 / 480 Output: Urine 2300 / 2300 800 / 800 Other: # Voids 1 Date of Last Bowel Movement 05/17/18 05/17/18 05/17/18 # Bowel Movements 0 Narrative: GENERAL: Well developed, obese male in no acute distress. SKIN: Warm and dry. HEAD: Normocephalic. EYES: No scleral icterus. No injection or drainage. NECK: Supple, trachea midline. CARDIOVASCULAR: Regular rate and rhythm without murmurs, gallops, or rubs. RESPIRATORY: Decreased breath sounds diminished due to body habitus. Occ wheeze heard.No accessory muscle use. GASTROINTESTINAL: Abdomen soft, non-tender, nondistended. Normoactive bowel sounds. MUSCULOSKELETAL: No cyanosis, or edema. Moving all extremities spontaneously, left upper extremity range of motion decreased . NEUROLOGICAL: Patient is awake, alert, oriented 3 . Moving all extremities spontaneously, speech is clear. BACK: Nontender without obvious deformity. No CVA tenderness. Results - Labs CBC & Chem 7: 05/19/18 20:08 05/19/18 20:08 Laboratory Results - last 24 hr 05/19/18 05/19/18 05/19/18 20:08 20:08 20:55 WBC 16.6 H RBC 4.13 L Hgb 9.3 L Hct 30.2 L MCV 73.1 L MCH 22.4 L MCHC 30.7 L RDW 22.1 H Plt Count 270 MPV 7.2 Neut % (Auto) 83.7 H Lymph % (Auto) 9.9 [place] % (Auto) 6.3 Eos % (Auto) 0.0 Baso % (Auto) 0.1 Neut # (Auto) 13.9 H Lymph # (Auto) 1.6 [place] # (Auto) 1.0 H Eos # (Auto) 0.0 Baso # (Auto) 0.0 WBC Differential . Differential Comment Auto diff final Sodium 132 L Potassium 3.7 Chloride 90 L Carbon Dioxide 28.2 Anion Gap 14 BUN 37 H Creatinine 1.62 H Estimated GFR 43 L POC Glucose 408 H Random Glucose 302 H Calcium 9.1 05/20/18 05/20/18 05/20/18 00:07 04:22 08:34 WBC RBC Hgb Hct MCV MCH MCHC RDW Plt Count MPV Neut % (Auto) Lymph % (Auto) [place] % (Auto) Eos % (Auto) Baso % (Auto) Neut # (Auto) Lymph # (Auto) [place] # (Auto) Eos # (Auto) Baso # (Auto) WBC Differential Differential Comment Sodium Potassium Chloride Carbon Dioxide Anion Gap BUN Creatinine Estimated GFR POC Glucose 212 H 91 123 H Random Glucose Calcium 05/20/18 05/20/18 12:19 17:57 WBC RBC Hgb Hct MCV MCH MCHC RDW Plt Count MPV Neut % (Auto) Lymph % (Auto) [place] % (Auto) Eos % (Auto) Baso % (Auto) Neut # (Auto) Lymph # (Auto) [place] # (Auto) Eos # (Auto) Baso # (Auto) WBC Differential Differential Comment Sodium Potassium Chloride Carbon Dioxide Anion Gap BUN Creatinine Estimated GFR POC Glucose 224 H 351 H Random Glucose Calcium Microbiology 05/18/18 13:20 Sputum - Expectorated Sputum Gram Stain - Final 05/18/18 13:20 Sputum - Expectorated Sputum Sputum Culture - Final Moderate growth normal respiratory johnnie Assessment and Plan - Assessment (1) RONAN (obstructive sleep apnea) Code(s): G47.33 - Obstructive sleep apnea (adult) (pediatric) Status: Acute (2) COPD (chronic obstructive pulmonary disease) with acute bronchitis Code(s): J44.0 - Chronic obstructive pulmonary disease with acute lower respiratory infection; J20.9 - Acute bronchitis, unspecified Status: Acute (3) GI bleed Code(s): K92.2 - Gastrointestinal hemorrhage, unspecified Status: Acute (4) Anemia Code(s): D64.9 - Anemia, unspecified Status: Acute (5) Syncope Code(s): R55 - Syncope and collapse Status: Acute (6) Generalized weakness Code(s): R53.1 - Weakness Status: Acute (7) CAD (coronary artery disease) Code(s): I25.10 - Atherosclerotic heart disease of [place] coronary artery without angina pectoris Status: Chronic (8) Paroxysmal A-fib Code(s): I48.0 - Paroxysmal atrial fibrillation Status: Chronic (9) Hypertension Code(s): I10 - Essential (primary) hypertension Status: Chronic (10) Obesity Code(s): E66.9 - Obesity, unspecified Status: Chronic - Plan 1. Continue antibiotic Rocephin and The patient will get his dose at [facility]. 2. Solumedrol 40 mg IV daily 3. O2 3 L N/C and CPAP at HS 4. Duoneb nebs qid. 5. CBC,BMP in am. 6. I Discussed case with Dr Jackson , partner with Dr Fitch and he has asked us to send him to their clinic as OP to continue his IV Antibiotic and IV Steroids. 7. Pt will use His own CPAP machine upon discharge. (3) GI bleed Qualifiers: GI bleed type/associated pathology: unspecified gastrointestinal hemorrhage type Qualified Code(s): K92.2 - Gastrointestinal hemorrhage, unspecified (4) Anemia Qualifiers: Anemia type: unspecified type Qualified Code(s): D64.9 - Anemia, unspecified (5) Syncope Qualifiers: Syncope type: unspecified Qualified Code(s): R55 - Syncope and collapse
--- NOTE | 2018-05-20 18:58 | P.PNNEU ---
Subjective Subjective Comments: Pt still with tremulousness upon standing. Keppra has not helped CT cervical and thoracic spines no stenosis EEG negative Active Medications: Active Medications Hydrocodone Bitart/Acetaminophen (Bude 10/325) 1 tab PO Q6H PRN PRN Reason: Pain 2-10 Last Admin: 05/19/18 17:03 Dose: 1 tab Al Hydroxide/Mg Hydroxide (Milk Of Marianne Geller) 30 ml PO Q12H PRN PRN Reason: Mild Constipation Albuterol (Duoneb Neb (Prn)) 1 ampul NEB Q2HR NEB PRN PRN Reason: DYSPNEA Amiodarone HCl (Cordarone) 200 mg PO DAILY [facility] Last Admin: 05/20/18 08:43 Dose: 200 mg Amlodipine Besylate (Norvasc) 5 mg PO DAILY [facility] Last Admin: 05/15/18 08:45 Dose: 5 mg Apixaban (Eliquis) 5 mg PO BID [facility] Last Admin: 05/20/18 08:43 Dose: 5 mg Aspirin (Aspirin Chew) 81 mg PO DAILY [facility] Last Admin: 05/17/18 11:01 Dose: Not Given Atorvastatin Calcium (Lipitor) 10 mg PO HS [facility] Last Admin: 05/19/18 21:06 Dose: 10 mg Bisacodyl (Dulcolax Supp) 10 mg RECTAL DAILY PRN PRN Reason: SEVERE CONSITIPATION Budesonide/Formoterol Fumarate (Symbicort 160/4.5 Mcg Inh) 2 puff INH BID [facility] Last Admin: 05/20/18 08:59 Dose: 2 puff Clonazepam (Klonopin) 0.25 mg PO Q12HR [facility] Clopidogrel Bisulfate (Plavix) 75 mg PO DAILY [facility] Last Admin: 05/20/18 08:43 Dose: 75 mg Dextrose (D50w Vial) 50 ml IV.PUSH UNSCH PRN PRN Reason: PER HYPOGLYCEMIA PROTOCOL Duloxetine HCl (Cymbalta) 60 mg PO DAILY [facility] Last Admin: 05/20/18 08:43 Dose: 60 mg Furosemide (Lasix) 20 mg PO DAILY [facility] Last Admin: 05/20/18 12:21 Dose: Not Given Gabapentin (Neurontin) 600 mg PO BID [facility] Last Admin: 05/16/18 08:20 Dose: 600 mg Glimepiride (Amaryl) 2 mg PO DAILY [facility] Last Admin: 05/20/18 08:43 Dose: 2 mg Glucagon (Glucagon Inj) 1 mg OTHER PRN PRN PRN Reason: for Hypoglycemia Protocol Hydrochlorothiazide (Hydrodiuril) 25 mg PO DAILY [facility] Last Admin: 05/20/18 08:43 Dose: 25 mg Ceftriaxone Sodium 1,000 mg/ (Sodium Chloride) 100 mls @ 200 mls/hr IV.SIG Q24H [facility] Last Admin: 05/20/18 15:39 Dose: 100 mls/hr Insulin Aspart (Novolog Insulin Correctional Sugar Inj) 0 unit SQ ACHS AND 3AM [facility]; Protocol Last Admin: 05/20/18 17:58 Dose: 25 unit Insulin Aspart (Novolog Inj) 50 units SQ DAILY@0800 [facility] Last Admin: 05/20/18 08:44 Dose: Not Given Insulin Aspart (Novolog Inj) 20 units SQ DAILY@2000 [facility] Last Admin: 05/19/18 21:09 Dose: 20 units Insulin Human NPH (Novolin N Inj) 75 units SQ HS [facility] Last Admin: 05/19/18 21:09 Dose: 75 units Insulin Human NPH (Novolin N Inj) 70 units SQ DAILY@0800 [facility] Last Admin: 05/20/18 08:44 Dose: 70 units Lactulose (Lactulose Liq) 30 ml PO DAILY PRN PRN Reason: SEVERE CONSITIPATION Lidocaine HCl (Lidoderm 5% Patch.12 Hr) 1 patch T-DERMAL DAILY [facility] Last Admin: 05/20/18 08:45 Dose: 1 patch Losartan Potassium (Cozaar) 50 mg PO DAILY [facility] Last Admin: 05/20/18 08:59 Dose: Not Given Methylprednisolone Sodium Succinate (Solumedrol Inj) 40 mg IV.PUSH DAILY [facility] Last Admin: 05/20/18 08:43 Dose: 40 mg Metolazone (Zaroxolyn) 5 mg PO DAILY [facility] Last Admin: 05/20/18 08:59 Dose: Not Given Metoprolol Tartrate (Lopressor) 50 mg PO BID [facility] Last Admin: 05/20/18 08:45 Dose: Not Given Miscellaneous (Pill Splitter) 1 each OTHER UNSCH PRN PRN Reason: SEE LABEL COMMENTS Naloxone HCl (Narcan Inj) 0.4 mg IV.PUSH UNSCH PRN PRN Reason: SEE LABEL COMMENTS Ondansetron HCl (Zofran Inj) 4 mg IV.PUSH Q6H PRN PRN Reason: NAUSEA Last Admin: 05/16/18 06:18 Dose: 4 mg Pantoprazole Sodium (Protonix) 40 mg PO DAILY [facility] Last Admin: 05/20/18 08:43 Dose: 40 mg Patch Removal (Remove Old Patch) 1 each T-DERMAL HS [facility] Last Admin: 05/19/18 22:36 Dose: 1 each Ropinirole HCl (Requip) 0.5 mg PO DAILY [facility] Last Admin: 05/20/18 08:43 Dose: 0.5 mg Ropinirole HCl (Requip) 1 mg PO HS [facility] Last Admin: 05/19/18 21:06 Dose: 1 mg Senna/Docusate Sodium (Danielle-Colace) 1 tab PO BID [facility] Last Admin: 05/20/18 08:43 Dose: 1 tab Sennosides (Senokot) 17.2 mg PO Q12H PRN PRN Reason: Moderate Constipation Sodium Chloride (Ns Flush) 2 ml IV.FLUSH PRN PRN PRN Reason: FLUSH AFTER USING IV ACCESS Sodium Chloride (Ns Flush) 2 ml IV.FLUSH BID [facility] Last Admin: 05/20/18 08:45 Dose: 2 ml Allergies/Adverse Reactions: Allergies Allergy/AdvReac Type Severity Reaction Status Date / Time adhesive Allergy Severe Rash Verified 05/12/18 19:12 atorvastatin Allergy Severe MUSCLE Verified 05/12/18 19:12 WEAKNESS pravastatin Allergy Severe MUSCLE Verified 05/12/18 19:12 WEAKNESS rosuvastatin Allergy Severe MUSCLE Verified 05/12/18 19:12 WEAKNESS morphine AdvReac Severe BECOMES Verified 05/12/18 19:12 VERY AGGRESSIVE Physical Exam Vital signs: Vital Signs 05/19/18 19:33 05/19/18 19:39 05/19/18 19:46 Temperature 98.2 F Pulse Rate 76 65 70 Respiratory Rate 19 16 Blood Pressure 132/60 Pulse Oximetry 96 05/19/18 21:23 05/19/18 23:58 05/20/18 00:09 Temperature 97.7 F Pulse Rate 68 65 Respiratory Rate 18 Blood Pressure 124/59 L Pulse Oximetry 94 L 95 05/20/18 02:00 05/20/18 03:34 05/20/18 04:00 Temperature 98.2 F Pulse Rate 67 59 L Respiratory Rate 17 19 Blood Pressure 135/63 Pulse Oximetry 95 05/20/18 07:42 05/20/18 08:00 05/20/18 12:00 Temperature 97.8 F 97.9 F Pulse Rate 53 L 58 L 66 Respiratory Rate 16 19 19 Blood Pressure 112/52 L 108/65 Pulse Oximetry 95 92 L 91 L 05/20/18 15:23 05/20/18 16:00 Temperature 97.6 F Pulse Rate 97 H 73 Respiratory Rate 15 19 Blood Pressure 120/59 L Pulse Oximetry 93 L Intake & Output 05/19/18 05/20/18 05/20/18 18:59 06:59 18:59 Intake Total 600 / 600 480 / 480 Output Total 2300 / 2300 800 / 800 Balance -1700 / -1700 480 / 480 -800 / -800 Weight 152.4 kg Intake: IV 100 / 100 Rocephin Inj 1,000 MG In NS Inj 100 / 100 100 ML @ 200 mls/hr IV.SIG Q24H [facility] Rx#:[id number] Oral 500 / 500 480 / 480 Output: Urine 2300 / 2300 800 / 800 Other: # Voids 1 Date of Last Bowel Movement 05/17/18 05/17/18 05/17/18 # Bowel Movements 0 - Routine Neurological Exam alert, follow commands CN intact MOTOR 5/5 BUE and BLE Objective Laboratory Results - last 24 hr 05/19/18 05/19/18 05/19/18 20:08 20:08 20:55 WBC 16.6 H RBC 4.13 L Hgb 9.3 L Hct 30.2 L MCV 73.1 L MCH 22.4 L MCHC 30.7 L RDW 22.1 H Plt Count 270 MPV 7.2 Neut % (Auto) 83.7 H Lymph % (Auto) 9.9 [place] % (Auto) 6.3 Eos % (Auto) 0.0 Baso % (Auto) 0.1 Neut # (Auto) 13.9 H Lymph # (Auto) 1.6 [place] # (Auto) 1.0 H Eos # (Auto) 0.0 Baso # (Auto) 0.0 WBC Differential . Differential Comment Auto diff final Sodium 132 L Potassium 3.7 Chloride 90 L Carbon Dioxide 28.2 Anion Gap 14 BUN 37 H Creatinine 1.62 H Estimated GFR 43 L POC Glucose 408 H Random Glucose 302 H Calcium 9.1 05/20/18 05/20/18 05/20/18 00:07 04:22 08:34 WBC RBC Hgb Hct MCV MCH MCHC RDW Plt Count MPV Neut % (Auto) Lymph % (Auto) [place] % (Auto) Eos % (Auto) Baso % (Auto) Neut # (Auto) Lymph # (Auto) [place] # (Auto) Eos # (Auto) Baso # (Auto) WBC Differential Differential Comment Sodium Potassium Chloride Carbon Dioxide Anion Gap BUN Creatinine Estimated GFR POC Glucose 212 H 91 123 H Random Glucose Calcium 05/20/18 05/20/18 12:19 17:57 WBC RBC Hgb Hct MCV MCH MCHC RDW Plt Count MPV Neut % (Auto) Lymph % (Auto) [place] % (Auto) Eos % (Auto) Baso % (Auto) Neut # (Auto) Lymph # (Auto) [place] # (Auto) Eos # (Auto) Baso # (Auto) WBC Differential Differential Comment Sodium Potassium Chloride Carbon Dioxide Anion Gap BUN Creatinine Estimated GFR POC Glucose 224 H 351 H Random Glucose Calcium Microbiology 05/18/18 13:20 Gram Stain - Final Sputum - Expectorated Sputum Sputum Culture - Final Moderate growth normal respiratory johnnie Review/Management - Diagnosis (1) GI bleed Code(s): K92.2 - Gastrointestinal hemorrhage, unspecified Status: Acute Current Visit: Yes (2) Anemia Code(s): D64.9 - Anemia, unspecified Status: Acute Current Visit: Yes (3) Syncope Code(s): R55 - Syncope and collapse Status: Acute Current Visit: Yes (4) Generalized weakness Code(s): R53.1 - Weakness Status: Acute Current Visit: Yes - Review/Management Plan: CT C-spine, T-spine shows arthritis no fracture no obvious significant stenosis Syncopal weakness likely related to orthostatic hypotension, anemia deconditioning Recommendations trial of klonopin for [possible orthostatic tremor. (1) GI bleed Qualifiers: GI bleed type/associated pathology: unspecified gastrointestinal hemorrhage type Qualified Code(s): K92.2 - Gastrointestinal hemorrhage, unspecified (2) Anemia Qualifiers: Anemia type: unspecified type Qualified Code(s): D64.9 - Anemia, unspecified (3) Syncope Qualifiers: Syncope type: unspecified Qualified Code(s): R55 - Syncope and collapse
[2018-05-20] MEDS: clonazePAM 0.5 MG Tablet PO SCH (20:39)
[2018-05-21] MEDS: Insulin NovoLOG Aspart Correctional Sugar Inj SQ SCH ×5 (02:40→21:03)
[2018-05-21 06:30] LABS: Baso % (Auto) 0.2 % (0.0-2.0); Eos % (Auto) 0.1 % (0.0-4.0); Hematocrit 30.9 % (39.0-51.0); Hemoglobin 9.4 gm/dL (13.0-17.0); Lymph # (Auto) 2.3 th/mm3 (1.0-4.8); Mean Corpuscular Volume 71.9 fL (80.0-100.0); Mean Platelet Volume 7.1 fL (7.0-11.0); Mono # (Auto) 1.1 th/mm3 (0.0-0.9); Mono % (Auto) 8.5 % (0.0-8.0); Neut # (Auto) 9.4 th/mm3 (1.8-7.7); Neut % (Auto) 73.2 % (16.0-70.0); Platelet Count 244 th/mm3 (150-450); Red Blood Count 4.29 mil/mm3 (4.50-5.90); Red Cell Distribution Width 22.3 % (11.6-17.2); White Blood Count 12.9 th/mm3 (4.0-11.0)
[2018-05-21 06:33] LABS: Mean Corpuscular HGB Conc 30.6 % (32.0-36.0)
[2018-05-21 06:56] LABS: Calcium 9.3 mg/dL (8.5-10.1); Carbon Dioxide 32.5 meq/L (21.0-32.0)
[2018-05-21 07:04] LABS: Potassium 2.8 meq/L (3.5-5.1)
[2018-05-21] MEDS: clonazePAM 0.5 MG Tablet PO SCH ×2 (08:24→21:01)
[2018-05-21] MEDS: Amiodarone 200 MG Tablet PO SCH (08:24)
[2018-05-21] MEDS: Duloxetine 60 MG DR Capsule PO SCH (08:24)
[2018-05-21] MEDS: Metoprolol Tartrate 50 MG Tablet PO SCH ×2 (08:24→21:02)
[2018-05-21] MEDS: Senna/Docusate Sodium 8.6/50 MG Tablet PO SCH ×2 (08:25→21:02)
[2018-05-21] MEDS: Glimepiride 2 MG Tablet PO SCH (08:25)
[2018-05-21] MEDS: Furosemide 20 MG Tablet PO SCH (08:25)
[2018-05-21] MEDS: MethylPREDNISolone Sod Succinate Inj 40 MG/ML Vial IV.PUSH SCH (08:25)
[2018-05-21] MEDS: hydroCHLOROthiazide 25 MG Tablet PO SCH (08:25)
[2018-05-21 09:02] LABS: Potassium 2.8 meq/L (3.5-5.1)
[2018-05-21] MEDS: Lidocaine 5% Patch T-DERMAL SCH (10:41)
[2018-05-21] MEDS: Budesonide-Formoterol 160/4.5 MCG 6 GM Inhaler INH SCH ×2 (10:42→21:02)
--- NOTE | 2018-05-21 13:09 | P.PN ---
Subjective Interval history: Better now and Off O2 . Used CPAP at HS. CXR is better Physical Exam Vital signs: Vital Signs 05/20/18 15:23 05/20/18 16:00 05/20/18 20:00 Temperature 97.6 F 97.8 F Pulse Rate 97 H 73 81 Respiratory Rate 15 19 18 Blood Pressure 120/59 L 139/59 L Pulse Oximetry 93 L 96 05/21/18 04:00 05/21/18 08:00 05/21/18 12:00 Temperature 97.2 F L 97.5 F L 98.5 F Pulse Rate 61 58 L 66 Respiratory Rate 18 17 18 Blood Pressure 102/48 L 131/60 146/66 H Pulse Oximetry 95 96 98 Intake & Output 05/20/18 05/21/18 05/21/18 18:59 06:59 18:59 Intake Total 340 / 340 400 / 400 Output Total 1250 / 1250 Balance -910 / -910 400 / 400 Weight 152.4 kg Intake: IV 100 / 100 Rocephin Inj 1,000 MG In NS Inj 100 / 100 100 ML @ 200 mls/hr IV.SIG Q24H [facility] Rx#:[id number] Oral 240 / 240 400 / 400 Output: Urine 1250 / 1250 Other: # Voids 2 Date of Last Bowel Movement 05/17/18 05/21/18 05/20/18 # Bowel Movements 1 Narrative: GENERAL: Well developed, obese male in no acute distress. SKIN: Warm and dry. HEAD: Normocephalic. EYES: No scleral icterus. No injection or drainage. NECK: Supple, trachea midline. CARDIOVASCULAR: Regular rate and rhythm without murmurs, gallops, or rubs. RESPIRATORY: Decreased breath sounds diminished and Occ wheeze heard.No accessory muscle use. GASTROINTESTINAL: Abdomen soft, non-tender, nondistended. Normoactive bowel sounds. MUSCULOSKELETAL: No cyanosis, or edema. Moving all extremities spontaneously, left upper extremity range of motion decreased . NEUROLOGICAL: Patient is awake, alert, oriented 3 . Moving all extremities spontaneously, speech is clear. BACK: Nontender without obvious deformity. No CVA tenderness. Results - Labs CBC & Chem 7: 05/21/18 04:10 05/21/18 08:05 Laboratory Results - last 24 hr 05/20/18 05/20/18 05/21/18 17:57 20:34 02:33 WBC RBC Hgb Hct MCV MCH MCHC RDW Plt Count MPV Neut % (Auto) Lymph % (Auto) [place] % (Auto) Eos % (Auto) Baso % (Auto) Neut # (Auto) Lymph # (Auto) [place] # (Auto) Eos # (Auto) Baso # (Auto) WBC Differential Differential Comment Sodium Potassium Chloride Carbon Dioxide Anion Gap BUN Creatinine Estimated GFR POC Glucose 351 H 378 H 111 H Random Glucose Calcium Magnesium 05/21/18 05/21/18 05/21/18 04:10 04:10 07:40 WBC 12.9 H RBC 4.29 L Hgb 9.4 L Hct 30.9 L MCV 71.9 L MCH 22.0 L MCHC 30.6 L RDW 22.3 H Plt Count 244 MPV 7.1 Neut % (Auto) 73.2 H Lymph % (Auto) 18.0 [place] % (Auto) 8.5 H Eos % (Auto) 0.1 Baso % (Auto) 0.2 Neut # (Auto) 9.4 H Lymph # (Auto) 2.3 [place] # (Auto) 1.1 H Eos # (Auto) 0.0 Baso # (Auto) 0.0 WBC Differential . Differential Comment Auto diff final Sodium 139 Potassium 2.8 L* D Chloride 95 L Carbon Dioxide 32.5 H Anion Gap 12 BUN 29 H Creatinine 1.32 H Estimated GFR 54 L POC Glucose 113 H Random Glucose 70 L D Calcium 9.3 Magnesium 05/21/18 05/21/18 08:05 11:55 WBC RBC Hgb Hct MCV MCH MCHC RDW Plt Count MPV Neut % (Auto) Lymph % (Auto) [place] % (Auto) Eos % (Auto) Baso % (Auto) Neut # (Auto) Lymph # (Auto) [place] # (Auto) Eos # (Auto) Baso # (Auto) WBC Differential Differential Comment Sodium Potassium 2.8 L* Chloride Carbon Dioxide Anion Gap BUN Creatinine Estimated GFR POC Glucose 233 H Random Glucose Calcium Magnesium 2.0 Microbiology 05/18/18 13:20 Sputum - Expectorated Sputum Gram Stain - Final 05/18/18 13:20 Sputum - Expectorated Sputum Sputum Culture - Final Moderate growth normal respiratory johnnie Assessment and Plan - Assessment (1) RONAN (obstructive sleep apnea) Code(s): G47.33 - Obstructive sleep apnea (adult) (pediatric) Status: Acute (2) COPD (chronic obstructive pulmonary disease) with acute bronchitis Code(s): J44.0 - Chronic obstructive pulmonary disease with acute lower respiratory infection; J20.9 - Acute bronchitis, unspecified Status: Acute (3) GI bleed Code(s): K92.2 - Gastrointestinal hemorrhage, unspecified Status: Acute (4) Anemia Code(s): D64.9 - Anemia, unspecified Status: Acute (5) Syncope Code(s): R55 - Syncope and collapse Status: Acute (6) Generalized weakness Code(s): R53.1 - Weakness Status: Acute (7) CAD (coronary artery disease) Code(s): I25.10 - Atherosclerotic heart disease of [place] coronary artery without angina pectoris Status: Chronic (8) Paroxysmal A-fib Code(s): I48.0 - Paroxysmal atrial fibrillation Status: Chronic (9) Hypertension Code(s): I10 - Essential (primary) hypertension Status: Chronic (10) Obesity Code(s): E66.9 - Obesity, unspecified Status: Chronic - Plan 1. Continue antibiotic Rocephin and The patient will get his dose at [facility]. 2. D/C Solumedrol and switch to Prednisone 40 mg daily and taper 3. O2 3 L N/C and CPAP at HS 4. Duoneb nebs qid. 5. Home per Dr Rawls 6. I Discussed case with Dr Jackson , partner with Dr Fitch and he has asked us to send him to their clinic as OP to continue his IV Antibiotic and PO Steroids. 7. Pt will use His own CPAP machine upon discharge. (3) GI bleed Qualifiers: GI bleed type/associated pathology: unspecified gastrointestinal hemorrhage type Qualified Code(s): K92.2 - Gastrointestinal hemorrhage, unspecified (4) Anemia Qualifiers: Anemia type: unspecified type Qualified Code(s): D64.9 - Anemia, unspecified (5) Syncope Qualifiers: Syncope type: unspecified Qualified Code(s): R55 - Syncope and collapse
--- NOTE | 2018-05-21 14:54 | P.PN ---
Subjective Interval history: Patient seen sitting up in chair at bedside. is present. Patient denies chest pain. No syncope or dizziness. Does experience some shortness of breath with exertion. Tells me that he feels weak. Also notes that he has less upper arm strength due to pain. Patient does fall asleep during our discussion. His is very concerned that there is something in his brain causing the tremor in his right hand. No tremor noted on exam today. reports that tremor happens most frequently after PT. She is requesting a brain MRI -patient does have a loop recorder. Physical Exam Vital signs: Vital Signs 05/20/18 15:23 05/20/18 16:00 05/20/18 20:00 Temperature 97.6 F 97.8 F Pulse Rate 97 H 73 81 Respiratory Rate 15 19 18 Blood Pressure 120/59 L 139/59 L Pulse Oximetry 93 L 96 05/21/18 04:00 05/21/18 08:00 05/21/18 12:00 Temperature 97.2 F L 97.5 F L 98.5 F Pulse Rate 61 58 L 66 Respiratory Rate 18 17 18 Blood Pressure 102/48 L 131/60 146/66 H Pulse Oximetry 95 96 98 Intake & Output 05/20/18 05/21/18 05/21/18 18:59 06:59 18:59 Intake Total 340 / 340 400 / 400 Output Total 1250 / 1250 Balance -910 / -910 400 / 400 Weight 152.4 kg Intake: IV 100 / 100 Rocephin Inj 1,000 MG In NS Inj 100 / 100 100 ML @ 200 mls/hr IV.SIG Q24H [facility] Rx#:[id number] Oral 240 / 240 400 / 400 Output: Urine 1250 / 1250 Other: # Voids 2 Date of Last Bowel Movement 05/17/18 05/21/18 05/20/18 # Bowel Movements 1 Narrative: GENERAL: Well-nourished, well-developed adult male in no obvious distress. SKIN: Warm and dry. HEAD: Atraumatic. Normocephalic. CARDIOVASCULAR: Regular rate and rhythm. RESPIRATORY: No accessory muscle use. Clear to auscultation. Breath sounds equal bilaterally. GASTROINTESTINAL: Abdomen soft, non-tender, non-distended. Positive bowel sounds. MUSCULOSKELETAL: Extremities without clubbing, cyanosis, or edema. No obvious deformities. Limited range of motion bilateral upper extremities with 4/5 strength equal bilateral. NEUROLOGICAL: Awake and alert. No obvious cranial nerve deficits. Motor grossly within normal limits. Normal speech. Results - Labs CBC & Chem 7: 05/21/18 04:10 05/21/18 08:05 Laboratory Results - last 24 hr 05/20/18 05/20/18 05/21/18 17:57 20:34 02:33 WBC RBC Hgb Hct MCV MCH MCHC RDW Plt Count MPV Neut % (Auto) Lymph % (Auto) [place] % (Auto) Eos % (Auto) Baso % (Auto) Neut # (Auto) Lymph # (Auto) [place] # (Auto) Eos # (Auto) Baso # (Auto) WBC Differential Differential Comment Sodium Potassium Chloride Carbon Dioxide Anion Gap BUN Creatinine Estimated GFR POC Glucose 351 H 378 H 111 H Random Glucose Calcium Magnesium 05/21/18 05/21/18 05/21/18 04:10 04:10 07:40 WBC 12.9 H RBC 4.29 L Hgb 9.4 L Hct 30.9 L MCV 71.9 L MCH 22.0 L MCHC 30.6 L RDW 22.3 H Plt Count 244 MPV 7.1 Neut % (Auto) 73.2 H Lymph % (Auto) 18.0 [place] % (Auto) 8.5 H Eos % (Auto) 0.1 Baso % (Auto) 0.2 Neut # (Auto) 9.4 H Lymph # (Auto) 2.3 [place] # (Auto) 1.1 H Eos # (Auto) 0.0 Baso # (Auto) 0.0 WBC Differential . Differential Comment Auto diff final Sodium 139 Potassium 2.8 L* D Chloride 95 L Carbon Dioxide 32.5 H Anion Gap 12 BUN 29 H Creatinine 1.32 H Estimated GFR 54 L POC Glucose 113 H Random Glucose 70 L D Calcium 9.3 Magnesium 05/21/18 05/21/18 08:05 11:55 WBC RBC Hgb Hct MCV MCH MCHC RDW Plt Count MPV Neut % (Auto) Lymph % (Auto) [place] % (Auto) Eos % (Auto) Baso % (Auto) Neut # (Auto) Lymph # (Auto) [place] # (Auto) Eos # (Auto) Baso # (Auto) WBC Differential Differential Comment Sodium Potassium 2.8 L* Chloride Carbon Dioxide Anion Gap BUN Creatinine Estimated GFR POC Glucose 233 H Random Glucose Calcium Magnesium 2.0 Microbiology 05/18/18 13:20 Sputum - Expectorated Sputum Gram Stain - Final 05/18/18 13:20 Sputum - Expectorated Sputum Sputum Culture - Final Moderate growth normal respiratory johnnie Assessment and Plan - Assessment (1) Generalized weakness Code(s): R53.1 - Weakness Status: Acute - Plan 67-year-old male with a past medical history significant for atrial fibrillation anticoagulated on Eliquis, diabetes mellitus, coronary artery disease status post [place], CHF (last ejection fraction 55%), COPD and a history of breast, colon and prostate cancers presents to ED on 05/12 due to syncopal episode. Symptomatic anemia/syncope/lower GI bleed H&H 7.8/25.0 Hemoccult positive ED with history of black, tarry stools - Gastroenterology consulted, appreciate recommendations - s/p 1 unit of PRBCs transfused -Status post EGD with snare polypectomy and colonoscopy with snare polypectomy and fulguration of AVM's 05/14. Procedure revealed gastric polyps, cecal AVM's, colon polyp and colon diverticulosis -H&H stable, continue monitoring for black or bloody stools, none thus far. -Lower abdominal pain, GI ordered CT of abd/pelvis: Eventration of right hemidiaphragm, moderate gaseous distention of hepatic flexure in the right upper quadrant with component sitting anterior to the liver, previous transpedicular lumbar fixation, otherwise negative. -KUB 05/16 showed no disproportion needed dilated loops of small or large bowel, limited quality exam. s/p Relistor by GI - + BM's no abd. pain Syncope. Recurrent presyncopal/syncopal episodes -Cardiology consulted, and evaluated patient. Placed consult once again for reevaluation of patient due to ongoing syncopal episodes as well as 's request, greatly appreciate assistance and input. -Loop recorder interrogated, [employer] report noted sinus rhythm with PACs ( phone number [phone]) -2D echo showing EF 5560%, normal LV size, mild to moderate concentric left ventricular hypertrophy, no definitive wall motion abnormalities, moderate mitral annular calcification, mild aortic valve stenosis present -Bilateral carotid ultrasound with less than 50% stenosis -Bilateral upper and lower extremity ultrasounds negative for DVT -EEG with mild encephalopathy and sleep -Neurology Dr. Nichols evaluated patient, on low-dose Keppra for possible seizure activity. -CT of C-spine and T- spine to due to possible clonus. - CT- T spine: Negative, CT of T-spine: Advanced degenerative changes at the endplates and facet joints, similar to recent CT. -Orthostatic BP's + on 05/19 (supine 162/68, sitting 140/63, standing 130/63) had a drop of 25mmHg w/ standing on systolic pressure. Repeat orthostatic BP on 05/21 was normal. -Blood pressure medications adjusted. -Discussed with Dr. Nichols 05/20, recommendations to discontinue Keppra, start low -dose Klonopin twice daily Hyperglycemia/diabetes mellitus -On cardiac and diabetic diet, last A1c 8.8 on 01/10/18 -NovoLog 50 units at ADM, NovoLog 20 units at 8 PM (as requested per ) Novolin N 70units in a.m and 75 units HS, Accu-Cheks, sliding scale high coverage -Continue 2 mg of glimepiride -BS improved but still somewhat labile due to steroid use. Hypokalemia Hyponatremia, mild - s/p K replacement; repeated K replacement on 05/21. Monitor labs Atrial fibrillation, chronic HTN, chronic -Continue amiodarone/metoprolol (TSH ordered) -Eliquis resumed, discussed with GI previously. No bleeding noted. CHF/CAD Status post [place] -Continue beta-gunner, diuretics, as recommended by cardiology services -Continue home medications - BP on normal/low side, losartan and Zaroxolyn discontinued. Left shoulder rotator cuff injury Right finger pain - Right hand x-ray negative for fractures. -X-ray reviewed, no acute abnormality, mild osteoarthritis at the acromioclavicular joint, continue Lidoderm patch. Sleep apnea-attending home CPAP machine -Consult pulmonary for further recommendations. JUNIOR -Monitor renal function intermittently. Persistent leukocytosis, chronic -Patient with a history of leukocytosis dating back to 2017 upon review of EMR -Possibly related to steroid use recently -Blood cultures collected on 05/12 with no growth to date -Pulmonary has started ceftriaxone and consulted infectious disease for further recommendations -Patient afebrile with no suspected source of infection - spoke with patient's pulmonary office. Recommends discharging and following up with outpatient clinic for ongoing antibiotic and steroid infusions. to follow up with patient. RLS -Continue home dose Requip Sleep apnea -Pulmonary services following, greatly appreciate assistance. -Cleared for discharge from pulmonary standpoint, discussed with Dr. Conner DVT prophylaxis-Karrie Discussed Condition With: Patient, , staff nurse icu resource team. Discharge Planning: Will need clearance from neurology, increase activity without syncopal episodes. Can follow-up with pulmonary services for ongoing antibiotic and steroid infusions per Dr. Conner
[2018-05-22] MEDS: Insulin NovoLOG Aspart Correctional Sugar Inj SQ SCH ×5 (03:10→21:14)
[2018-05-22] MEDS: Metoprolol Tartrate 50 MG Tablet PO SCH ×2 (09:06→20:58)
[2018-05-22] MEDS: Glimepiride 2 MG Tablet PO SCH (09:06)
[2018-05-22] MEDS: Amiodarone 200 MG Tablet PO SCH (09:06)
[2018-05-22] MEDS: clonazePAM 0.5 MG Tablet PO SCH ×2 (09:06→20:59)
[2018-05-22] MEDS: Duloxetine 60 MG DR Capsule PO SCH (09:07)
[2018-05-22] MEDS: MethylPREDNISolone Sod Succinate Inj 40 MG/ML Vial IV.PUSH SCH (09:07)
[2018-05-22] MEDS: Senna/Docusate Sodium 8.6/50 MG Tablet PO SCH ×2 (09:07→20:58)
[2018-05-22] MEDS: Lidocaine 5% Patch T-DERMAL SCH (09:12)
[2018-05-22] MEDS: Budesonide-Formoterol 160/4.5 MCG 6 GM Inhaler INH SCH ×2 (12:32→21:15)
--- NOTE | 2018-05-22 17:07 | P.PN ---
Subjective Interval history: Patient seen walking in [place] with physical therapy and in room. He reports that he is doing better with a increased walker height. Still gets easily out of breath. No chest pain or palpitations. No dizziness or syncope while sitting or with physical therapy. No nausea vomiting or diarrhea. Tremor not noted today. Physical Exam Vital signs: Vital Signs 05/21/18 20:00 05/22/18 00:00 05/22/18 00:05 Temperature 97.3 F L 97.2 F L Pulse Rate 75 80 78 Respiratory Rate 18 18 Blood Pressure 145/68 H 110/57 L Pulse Oximetry 97 97 Pulse Oximetry [Exertion on Room Air] Pulse Oximetry [Exertion with Oxygen] Pulse Oximetry [Resting on Room Air] 05/22/18 00:43 05/22/18 03:02 05/22/18 04:00 Temperature 98.3 F Pulse Rate 62 63 Respiratory Rate 18 18 Blood Pressure 144/58 H Pulse Oximetry 94 L Pulse Oximetry [Exertion on Room Air] Pulse Oximetry [Exertion with Oxygen] Pulse Oximetry [Resting on Room Air] 05/22/18 08:00 05/22/18 12:00 05/22/18 13:28 Temperature 98.2 F 97.8 F Pulse Rate 63 59 L Respiratory Rate 18 17 Blood Pressure 148/64 H 174/65 H Pulse Oximetry 94 L 98 99 Pulse Oximetry [Exertion on Room Air] Pulse Oximetry [Exertion with Oxygen] Pulse Oximetry [Resting on Room Air] 05/22/18 13:50 Temperature Pulse Rate Respiratory Rate Blood Pressure Pulse Oximetry Pulse Oximetry [Exertion on Room Air] 87 L Pulse Oximetry [Exertion with Oxygen] 94 L Pulse Oximetry [Resting on Room Air] 98 Intake & Output 05/21/18 05/22/18 05/22/18 18:59 06:59 18:59 Intake Total 840 / 840 400 / 400 Output Total 1675 / 1675 1400 / 1400 Balance -835 / -835 -1000 / -1000 Weight 152.4 kg Intake: IV 100 / 100 Rocephin Inj 1,000 MG In NS Inj 100 / 100 100 ML @ 200 mls/hr IV.SIG Q24H [facility] Rx#:[id number] Oral 740 / 740 400 / 400 Output: Urine 1675 / 1675 1400 / 1400 Other: Date of Last Bowel Movement 05/20/18 05/21/18 # Bowel Movements 0 1 Narrative: GENERAL: Well-nourished, obese, well-developed adult male in no obvious distress. SKIN: Warm and dry. HEAD: Atraumatic. Normocephalic. CARDIOVASCULAR: Regular rate and rhythm. RESPIRATORY: No accessory muscle use. Clear to auscultation. Breath sounds equal bilaterally. GASTROINTESTINAL: Abdomen soft, non-tender, non-distended. Positive bowel sounds. MUSCULOSKELETAL: Extremities without clubbing, cyanosis, or edema. No obvious deformities. Limited range of motion bilateral upper extremities with 4/5 strength equal bilateral. NEUROLOGICAL: Awake and alert. No obvious cranial nerve deficits. Motor grossly within normal limits. Normal speech. Results - Labs CBC & Chem 7: 05/21/18 04:10 05/22/18 13:10 Laboratory Results - last 24 hr 05/21/18 05/21/18 05/21/18 16:08 20:52 23:43 Potassium 3.3 L POC Glucose 270 H 202 H 05/22/18 05/22/18 05/22/18 03:06 08:53 11:35 Potassium POC Glucose 139 H 128 H 250 H 05/22/18 13:10 Potassium 3.4 L POC Glucose Assessment and Plan - Assessment (1) Generalized weakness Code(s): R53.1 - Weakness Status: Acute - Plan 67-year-old male with a past medical history significant for atrial fibrillation anticoagulated on Eliquis, diabetes mellitus, coronary artery disease status post [place], CHF (last ejection fraction 55%), COPD and a history of breast, colon and prostate cancers presents to ED on 05/12 due to syncopal episode. Symptomatic anemia/syncope/lower GI bleed H&H 7.8/25.0 Hemoccult positive ED with history of black, tarry stools - Gastroenterology consulted, appreciate recommendations - s/p 1 unit of PRBCs transfused -Status post EGD with snare polypectomy and colonoscopy with snare polypectomy and fulguration of AVM's 05/14. Procedure revealed gastric polyps, cecal AVM's, colon polyp and colon diverticulosis -H&H stable, continue monitoring for black or bloody stools, none thus far. -Lower abdominal pain, GI ordered CT of abd/pelvis: Eventration of right hemidiaphragm, moderate gaseous distention of hepatic flexure in the right upper quadrant with component sitting anterior to the liver, previous transpedicular lumbar fixation, otherwise negative. -KUB 05/16 showed no disproportion needed dilated loops of small or large bowel, limited quality exam. s/p Relistor by GI - + BM's no abd. pain Syncope. Recurrent presyncopal/syncopal episodes -Cardiology consulted, and evaluated patient. Placed consult once again for reevaluation of patient due to ongoing syncopal episodes as well as 's request, greatly appreciate assistance and input. -Loop recorder interrogated, [employer] report noted sinus rhythm with PACs ( phone number [phone]) -2D echo showing EF 5560%, normal LV size, mild to moderate concentric left ventricular hypertrophy, no definitive wall motion abnormalities, moderate mitral annular calcification, mild aortic valve stenosis present -Bilateral carotid ultrasound with less than 50% stenosis -Bilateral upper and lower extremity ultrasounds negative for DVT -EEG with mild encephalopathy and sleep -Neurology Dr. Nichols evaluated patient, on low-dose Keppra for possible seizure activity. -CT of C-spine and T- spine to due to possible clonus. - CT- T spine: Negative, CT of T-spine: Advanced degenerative changes at the endplates and facet joints, similar to recent CT. -Orthostatic BP's + on 05/19 (supine 162/68, sitting 140/63, standing 130/63) had a drop of 25mmHg w/ standing on systolic pressure. Repeat orthostatic BP on 05/21 was normal. -Blood pressure medications adjusted. -Discussed with Dr. Nichols 05/20, recommendations to discontinue Keppra, start low -dose Klonopin twice daily Hyperglycemia/diabetes mellitus -On cardiac and diabetic diet, last A1c 8.8 on 01/10/18 -NovoLog 50 units at ADM, NovoLog 20 units at 8 PM (as requested per ) Novolin N 70units in a.m and 75 units HS, Accu-Cheks, sliding scale high coverage -Continue 2 mg of glimepiride -BS improved but still somewhat labile due to steroid use. Hypokalemia Hyponatremia, mild - s/p K replacement; repeated K replacement on 05/21. Monitor labs Atrial fibrillation, chronic HTN, chronic -Continue amiodarone/metoprolol (TSH ordered) -Eliquis resumed, discussed with GI previously. No bleeding noted. CHF/CAD Status post [place] -Continue beta-gunner, diuretics, as recommended by cardiology services -Continue home medications - BP on normal/low side, losartan and Zaroxolyn discontinued. Left shoulder rotator cuff injury Right finger pain - Right hand x-ray negative for fractures. -X-ray reviewed, no acute abnormality, mild osteoarthritis at the acromioclavicular joint, continue Lidoderm patch. Sleep apnea-attending home CPAP machine -Consult pulmonary for further recommendations. JUNIOR -Monitor renal function intermittently. Persistent leukocytosis, chronic -Patient with a history of leukocytosis dating back to 2016 upon review of EMR -Possibly related to steroid use recently -Blood cultures collected on 05/12 with no growth to date -Pulmonary has started ceftriaxone and consulted infectious disease for further recommendations -Patient afebrile with no suspected source of infection - spoke with patient's pulmonary office. Recommends discharging and following up with outpatient clinic for ongoing antibiotic and steroid infusions. to follow up with patient. -05/22 = required 4 L O2 while with physical therapy to maintain sats; walk test ordered RLS -Continue home dose Requip Sleep apnea -Pulmonary services following, greatly appreciate assistance. -Cleared for discharge from pulmonary standpoint, discussed with Dr. Conner DVT prophylaxis-Karrie Discussed Condition With: Patient, , nursing staffing coordinator. Discharge Planning: Will need clearance from neurology, increase activity without syncopal episodes. Can follow-up with pulmonary services for ongoing antibiotic and steroid infusions per Dr. Conner
[2018-05-22 20:13] LABS: Baso % (Auto) 0.1 % (0.0-2.0); Hematocrit 32.4 % (39.0-51.0); Hemoglobin 9.7 gm/dL (13.0-17.0); Lymph # (Auto) 1.1 th/mm3 (1.0-4.8); Lymph % (Auto) 6.5 % (9.0-44.0); Mean Corpuscular Volume 73.5 fL (80.0-100.0); Mean Platelet Volume 7.4 fL (7.0-11.0); Mono # (Auto) 0.5 th/mm3 (0.0-0.9); Mono % (Auto) 2.7 % (0.0-8.0); Neut % (Auto) 90.7 % (16.0-70.0); Platelet Count 290 th/mm3 (150-450); Red Blood Count 4.41 mil/mm3 (4.50-5.90); Red Cell Distribution Width 21.7 % (11.6-17.2); White Blood Count 17.7 th/mm3 (4.0-11.0)
[2018-05-22 20:29] LABS: Mean Corpuscular HGB Conc 29.9 % (32.0-36.0)
[2018-05-23] MEDS: Insulin NovoLOG Aspart Correctional Sugar Inj SQ SCH ×5 (03:10→22:05)
[2018-05-23] MEDS: Amiodarone 200 MG Tablet PO SCH (09:24)
[2018-05-23] MEDS: clonazePAM 0.5 MG Tablet PO SCH ×2 (09:24→22:03)
[2018-05-23] MEDS: Glimepiride 2 MG Tablet PO SCH (09:24)
[2018-05-23] MEDS: Duloxetine 60 MG DR Capsule PO SCH (09:24)
[2018-05-23] MEDS: MethylPREDNISolone Sod Succinate Inj 40 MG/ML Vial IV.PUSH SCH (09:25)
[2018-05-23] MEDS: Metoprolol Tartrate 50 MG Tablet PO SCH ×2 (09:25→22:04)
[2018-05-23] MEDS: Budesonide-Formoterol 160/4.5 MCG 6 GM Inhaler INH SCH ×2 (09:26→22:10)
[2018-05-23] MEDS: Lidocaine 5% Patch T-DERMAL SCH (09:26)
[2018-05-23] MEDS: Senna/Docusate Sodium 8.6/50 MG Tablet PO SCH ×2 (09:26→22:04)
[2018-05-23 09:58] LABS: Calcium 8.7 mg/dL (8.5-10.1); Carbon Dioxide 31.7 meq/L (21.0-32.0); Potassium 3.3 meq/L (3.5-5.1)
--- NOTE | 2018-05-23 15:57 | P.PN ---
Subjective Interval history: Patient is seen while working with physical therapy. He is noted to be able to walk about 15 steps before he experiences significant muscle tremors starting primarily in the right hand. 5-10 seconds after tremors start patient appears to collapse and is assisted to a seated position in wheelchair. Patient appears to lose focus and is unresponsive to name. Eyes are open but not focused. After being seated in wheelchair he quickly regains focus after about 20-30 seconds but does not remember the event. Complains of things being "foggy" and "seeing white" during episode. Upon repeat of walking exercise he is stopped at start of tremors and stabilized in the standing position; there is no seizure/syncopal type episode and he is able to continue walking. Patient only tolerates a short period of walking before he complains that his legs feel like "Jell-O" and he is returned to his room. Neuro exam post episode is grossly negative. Blood pressure stable throughout. Heart rhythm regular. Sats +95 on nasal cannula. Patient denies any chest pain or significant shortness of breath. No feeling of dizziness or room spinning. Physical Exam Vital signs: Vital Signs 05/22/18 16:00 05/22/18 19:40 05/22/18 20:00 Temperature 98.2 F 97.7 F Pulse Rate 68 77 69 Respiratory Rate 18 17 Blood Pressure 135/57 L 167/72 H Pulse Oximetry 98 96 05/23/18 00:00 05/23/18 04:00 05/23/18 08:00 Temperature 97.6 F 97.8 F 97.6 F Pulse Rate 68 64 59 L Respiratory Rate 17 17 18 Blood Pressure 165/65 H 157/96 H 180/84 H Pulse Oximetry 96 97 96 05/23/18 12:00 Temperature 97.3 F L Pulse Rate 60 Respiratory Rate 17 Blood Pressure 151/72 H Pulse Oximetry 99 Intake & Output 05/22/18 05/23/18 05/23/18 18:59 06:59 18:59 Intake Total 1300 / 1300 Output Total 850 / 850 1350 / 1350 Balance 450 / 450 -1350 / -1350 Intake: IV 100 / 100 Rocephin Inj 1,000 MG In NS Inj 100 / 100 100 ML @ 200 mls/hr IV.SIG Q24H [facility] Rx#:[id number] Oral 1200 / 1200 Output: Urine 850 / 850 1350 / 1350 Other: # Voids 3 Date of Last Bowel Movement 05/21/18 05/21/18 Narrative: GENERAL: Well-nourished, obese, well-developed adult male in no obvious distress. SKIN: Warm and dry. HEAD: Atraumatic. Normocephalic. CARDIOVASCULAR: Regular rate and rhythm. RESPIRATORY: No accessory muscle use. Clear to auscultation. Breath sounds equal bilaterally. GASTROINTESTINAL: Abdomen soft, non-tender, non-distended. Positive bowel sounds. MUSCULOSKELETAL: Extremities without clubbing, cyanosis, or edema. No obvious deformities. Limited range of motion bilateral upper extremities with 4/5 strength equal bilateral. NEUROLOGICAL: Awake and alert. No obvious cranial nerve deficits. Motor grossly within normal limits. Normal speech. Results - Labs CBC & Chem 7: 05/22/18 19:30 05/23/18 08:44 Laboratory Results - last 24 hr 05/22/18 05/22/18 05/22/18 17:33 19:30 21:03 WBC 17.7 H RBC 4.41 L Hgb 9.7 L Hct 32.4 L MCV 73.5 L MCH 22.0 L MCHC 29.9 L RDW 21.7 H Plt Count 290 MPV 7.4 Neut % (Auto) 90.7 H Lymph % (Auto) 6.5 L [place] % (Auto) 2.7 Eos % (Auto) 0.0 Baso % (Auto) 0.1 Neut # (Auto) 16.0 H Lymph # (Auto) 1.1 [place] # (Auto) 0.5 Eos # (Auto) 0.0 Baso # (Auto) 0.0 WBC Differential . Differential Comment Auto diff final Sodium Potassium Chloride Carbon Dioxide Anion Gap BUN Creatinine Estimated GFR POC Glucose 340 H 309 H Random Glucose Calcium 05/23/18 05/23/18 05/23/18 03:12 05:55 07:34 WBC RBC Hgb Hct MCV MCH MCHC RDW Plt Count MPV Neut % (Auto) Lymph % (Auto) [place] % (Auto) Eos % (Auto) Baso % (Auto) Neut # (Auto) Lymph # (Auto) [place] # (Auto) Eos # (Auto) Baso # (Auto) WBC Differential Differential Comment Sodium Potassium Chloride Carbon Dioxide Anion Gap BUN Creatinine Estimated GFR POC Glucose 73 77 73 Random Glucose Calcium 05/23/18 05/23/18 08:44 12:07 WBC RBC Hgb Hct MCV MCH MCHC RDW Plt Count MPV Neut % (Auto) Lymph % (Auto) [place] % (Auto) Eos % (Auto) Baso % (Auto) Neut # (Auto) Lymph # (Auto) [place] # (Auto) Eos # (Auto) Baso # (Auto) WBC Differential Differential Comment Sodium 139 Potassium 3.3 L Chloride 99 Carbon Dioxide 31.7 Anion Gap 8 BUN 26 H Creatinine 1.16 Estimated GFR 63 L POC Glucose 202 H Random Glucose 71 L Calcium 8.7 Assessment and Plan - Assessment (1) Generalized weakness Code(s): R53.1 - Weakness Status: Acute - Plan 67-year-old male with a past medical history significant for atrial fibrillation anticoagulated on Eliquis, diabetes mellitus, coronary artery disease status post NV, CHF (last ejection fraction 55%), COPD and a history of breast, colon and prostate cancers presents to ED on 05/12 due to syncopal episode. Symptomatic anemia/syncope/lower GI bleed H&H 7.8/25.0 Hemoccult positive ED with history of black, tarry stools - Gastroenterology consulted, appreciate recommendations - s/p 1 unit of PRBCs transfused -Status post EGD with snare polypectomy and colonoscopy with snare polypectomy and fulguration of AVM's 05/14. Procedure revealed gastric polyps, cecal AVM's, colon polyp and colon diverticulosis -H&H stable, continue monitoring for black or bloody stools, none thus far. -Lower abdominal pain, GI ordered CT of abd/pelvis: Eventration of right hemidiaphragm, moderate gaseous distention of hepatic flexure in the right upper quadrant with component sitting anterior to the liver, previous transpedicular lumbar fixation, otherwise negative. -KUB 05/16 showed no disproportion needed dilated loops of small or large bowel, limited quality exam. s/p Relistor by GI - + BM's no abd. pain Syncope. Recurrent presyncopal/syncopal episodes -Cardiology consulted, and evaluated patient. Placed consult once again for reevaluation of patient due to ongoing syncopal episodes as well as 's request, greatly appreciate assistance and input. -Loop recorder interrogated, Pressi report noted sinus rhythm with PACs ( phone number [phone]) -2D echo showing EF 5560%, normal LV size, mild to moderate concentric left ventricular hypertrophy, no definitive wall motion abnormalities, moderate mitral annular calcification, mild aortic valve stenosis present -Bilateral carotid ultrasound with less than 50% stenosis -Bilateral upper and lower extremity ultrasounds negative for DVT -EEG with mild encephalopathy and sleep -Neurology Dr. Nichols evaluated patient, on low-dose Keppra for possible seizure activity. -CT of C-spine and T- spine to due to possible clonus. - CT- T spine: Negative, CT of T-spine: Advanced degenerative changes at the endplates and facet joints, similar to recent CT. -Orthostatic BP's + on 05/19 (supine 162/68, sitting 140/63, standing 130/63) had a drop of 25mmHg w/ standing on systolic pressure. Repeat orthostatic BP on 05/21 was normal. -Blood pressure medications adjusted. -Discussed with Dr. Nichols 05/20, recommendations to discontinue Keppra, start low -dose Klonopin twice daily. Appreciate additional neurology evaluation. Hyperglycemia/diabetes mellitus -On cardiac and diabetic diet, last A1c 8.8 on 01/10/18 -NovoLog 50 units at ADM, NovoLog 20 units at 8 PM (as requested per ) Novolin N 70units in a.m and 75 units HS, Accu-Cheks, sliding scale high coverage -Continue 2 mg of glimepiride -BS improved but still somewhat labile due to steroid use. Hypokalemia Hyponatremia, mild - add daily replacement. Monitor labs Atrial fibrillation, chronic HTN, chronic -Continue amiodarone/metoprolol (TSH ordered) -Eliquis resumed, discussed with GI previously. No bleeding noted. CHF/CAD Status post NV -Continue beta-gunner, diuretics, as recommended by cardiology services -Continue home medications - BP on normal/low side, losartan and Zaroxolyn discontinued; restart losartan - BP increased. Left shoulder rotator cuff injury Right finger pain - Right hand x-ray negative for fractures. -X-ray reviewed, no acute abnormality, mild osteoarthritis at the acromioclavicular joint, continue Lidoderm patch. Sleep apnea-attending home CPAP machine -Consult pulmonary for further recommendations. JUNIOR -Monitor renal function intermittently. Persistent leukocytosis, chronic -Patient with a history of leukocytosis dating back to 2016 upon review of EMR -Possibly related to steroid use recently -Blood cultures collected on 05/12 with no growth to date -Pulmonary has started ceftriaxone and consulted infectious disease for further recommendations -Patient afebrile with no suspected source of infection - spoke with patient's pulmonary office. Recommends discharging and following up with outpatient clinic for ongoing antibiotic and steroid infusions. to follow up with patient. -05/22 = required 4 L O2 while with physical therapy to maintain sats; walk test ordered RLS -Continue home dose Requip Sleep apnea -Pulmonary services following, greatly appreciate assistance. -Cleared for discharge from pulmonary standpoint, discussed with Dr. 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 Discharge Planning: -Will need clearance from neurology -Can follow-up with pulmonary services for ongoing antibiotic and steroid infusions per Dr. Conner if DC'd home -Will likely need SNF/rehab
--- NOTE | 2018-05-23 17:16 | P.PN ---
Subjective Interval history: ALERT NAD O2 NC SEVERE WEAKNESS WITH ACTIVITY 6MIN WALK , SIG DESAT. Physical Exam Vital signs: Vital Signs 05/22/18 19:40 05/22/18 20:00 05/23/18 00:00 Temperature 97.7 F 97.6 F Pulse Rate 77 69 68 Respiratory Rate 17 17 Blood Pressure 167/72 H 165/65 H Pulse Oximetry 96 96 05/23/18 04:00 05/23/18 08:00 05/23/18 12:00 Temperature 97.8 F 97.6 F 97.3 F L Pulse Rate 64 59 L 60 Respiratory Rate 17 18 17 Blood Pressure 157/96 H 180/84 H 151/72 H Pulse Oximetry 97 96 99 05/23/18 16:00 Temperature 98.6 F Pulse Rate 65 Respiratory Rate 18 Blood Pressure 109/62 Pulse Oximetry 99 Intake & Output 05/22/18 05/23/18 05/23/18 18:59 06:59 18:59 Intake Total 1300 / 1300 Output Total 850 / 850 1350 / 1350 Balance 450 / 450 -1350 / -1350 Intake: IV 100 / 100 Rocephin Inj 1,000 MG In NS Inj 100 / 100 100 ML @ 200 mls/hr IV.SIG Q24H [facility] Rx#:[id number] Oral 1200 / 1200 Output: Urine 850 / 850 1350 / 1350 Other: # Voids 3 Date of Last Bowel Movement 05/21/18 05/21/18 Narrative: GENERAL: Well-nourished, obese, well-developed adult male in no obvious distress. SKIN: Warm and dry. HEAD: Atraumatic. Normocephalic. CARDIOVASCULAR: Regular rate and rhythm. RESPIRATORY: No accessory muscle use. Clear to auscultation. Breath sounds equal bilaterally. GASTROINTESTINAL: Abdomen soft, non-tender, non-distended. Positive bowel sounds. MUSCULOSKELETAL: Extremities without clubbing, cyanosis, or edema. No obvious deformities. Limited range of motion bilateral upper extremities with 4/5 strength equal bilateral. NEUROLOGICAL: Awake and alert. No obvious cranial nerve deficits. Motor grossly within normal limits. Normal speech. Results - Labs CBC & Chem 7: 05/22/18 19:30 05/23/18 08:44 Laboratory Results - last 24 hr 05/22/18 05/22/18 05/22/18 17:33 19:30 21:03 WBC 17.7 H RBC 4.41 L Hgb 9.7 L Hct 32.4 L MCV 73.5 L MCH 22.0 L MCHC 29.9 L RDW 21.7 H Plt Count 290 MPV 7.4 Neut % (Auto) 90.7 H Lymph % (Auto) 6.5 L [place] % (Auto) 2.7 Eos % (Auto) 0.0 Baso % (Auto) 0.1 Neut # (Auto) 16.0 H Lymph # (Auto) 1.1 [place] # (Auto) 0.5 Eos # (Auto) 0.0 Baso # (Auto) 0.0 WBC Differential . Differential Comment Auto diff final Sodium Potassium Chloride Carbon Dioxide Anion Gap BUN Creatinine Estimated GFR POC Glucose 340 H 309 H Random Glucose Calcium 05/23/18 05/23/18 05/23/18 03:12 05:55 07:34 WBC RBC Hgb Hct MCV MCH MCHC RDW Plt Count MPV Neut % (Auto) Lymph % (Auto) [place] % (Auto) Eos % (Auto) Baso % (Auto) Neut # (Auto) Lymph # (Auto) [place] # (Auto) Eos # (Auto) Baso # (Auto) WBC Differential Differential Comment Sodium Potassium Chloride Carbon Dioxide Anion Gap BUN Creatinine Estimated GFR POC Glucose 73 77 73 Random Glucose Calcium 05/23/18 05/23/18 05/23/18 08:44 12:07 16:44 WBC RBC Hgb Hct MCV MCH MCHC RDW Plt Count MPV Neut % (Auto) Lymph % (Auto) [place] % (Auto) Eos % (Auto) Baso % (Auto) Neut # (Auto) Lymph # (Auto) [place] # (Auto) Eos # (Auto) Baso # (Auto) WBC Differential Differential Comment Sodium 139 Potassium 3.3 L Chloride 99 Carbon Dioxide 31.7 Anion Gap 8 BUN 26 H Creatinine 1.16 Estimated GFR 63 L POC Glucose 202 H 397 H Random Glucose 71 L Calcium 8.7 Assessment and Plan - Plan RESPIRATORY FAILURE COPD RONAN PLAN O2 NEEDED BRONCHODILATOR THERAPY PAP THERAPY NEURO EVAL.
[2018-05-24] MEDS: Insulin NovoLOG Aspart Correctional Sugar Inj SQ SCH ×5 (03:47→20:28)
[2018-05-24 07:57] LABS: Calcium 8.6 mg/dL (8.5-10.1); Carbon Dioxide 31.3 meq/L (21.0-32.0); Potassium 3.3 meq/L (3.5-5.1)
[2018-05-24] MEDS: Lidocaine 5% Patch T-DERMAL SCH (09:08)
[2018-05-24] MEDS: Amiodarone 200 MG Tablet PO SCH (09:09)
[2018-05-24] MEDS: Metoprolol Tartrate 50 MG Tablet PO SCH ×2 (09:09→20:27)
[2018-05-24] MEDS: Duloxetine 60 MG DR Capsule PO SCH (09:09)
[2018-05-24] MEDS: clonazePAM 0.5 MG Tablet PO SCH ×2 (09:09→20:27)
[2018-05-24] MEDS: Senna/Docusate Sodium 8.6/50 MG Tablet PO SCH ×2 (09:09→20:27)
[2018-05-24] MEDS: Budesonide-Formoterol 160/4.5 MCG 6 GM Inhaler INH SCH ×2 (09:10→20:25)
[2018-05-24] MEDS: MethylPREDNISolone Sod Succinate Inj 40 MG/ML Vial IV.PUSH SCH (09:10)
[2018-05-24] MEDS: Glimepiride 2 MG Tablet PO SCH (09:10)
[2018-05-24 13:50] LABS: Baso % (Auto) 0.1 % (0.0-2.0); Eos % (Auto) 0.1 % (0.0-4.0); Hematocrit 32.3 % (39.0-51.0); Hemoglobin 9.7 gm/dL (13.0-17.0); Lymph # (Auto) 0.8 th/mm3 (1.0-4.8); Lymph % (Auto) 4.6 % (9.0-44.0); Mean Corpuscular Hemoglobin 21.8 pg (27.0-34.0); Mean Corpuscular Volume 72.9 fL (80.0-100.0); Mean Platelet Volume 7.6 fL (7.0-11.0); Mono # (Auto) 0.5 th/mm3 (0.0-0.9); Mono % (Auto) 2.9 % (0.0-8.0); Neut % (Auto) 92.3 % (16.0-70.0); Platelet Count 366 th/mm3 (150-450); Red Blood Count 4.43 mil/mm3 (4.50-5.90); Red Cell Distribution Width 21.5 % (11.6-17.2); White Blood Count 18.4 th/mm3 (4.0-11.0)
[2018-05-24 13:52] LABS: Mean Corpuscular HGB Conc 29.9 % (32.0-36.0)
--- NOTE | 2018-05-24 15:30 | P.PN ---
Subjective Interval history: ALERT NO DISTRESS SOB IMPROVED Physical Exam Vital signs: Vital Signs 05/23/18 16:00 05/23/18 19:57 05/23/18 22:00 Temperature 98.6 F 98.1 F Pulse Rate 65 63 64 Respiratory Rate 18 18 Blood Pressure 109/62 164/74 H Pulse Oximetry 99 100 05/23/18 22:34 05/23/18 23:59 05/24/18 00:00 Temperature 98.0 F Pulse Rate 55 L 58 L Respiratory Rate 18 17 Blood Pressure 179/84 H Pulse Oximetry 98 05/24/18 01:34 05/24/18 03:25 05/24/18 04:00 Temperature 98.1 F Pulse Rate 56 L 52 L Respiratory Rate 18 17 Blood Pressure 140/84 Pulse Oximetry 98 05/24/18 05:16 05/24/18 08:00 05/24/18 12:00 Temperature 97.2 F L 97.5 F L Pulse Rate 57 L 65 Respiratory Rate 18 22 Blood Pressure 156/73 H 149/85 H Pulse Oximetry 98 97 94 L Intake & Output 05/23/18 05/24/18 05/24/18 18:59 06:59 18:59 Intake Total 900 / 900 100 / 100 Output Total 950 / 950 Balance 900 / 900 -950 / -950 100 / 100 Intake: IV 100 / 100 100 / 100 Rocephin Inj 1,000 MG In NS Inj 100 / 100 100 / 100 100 ML @ 200 mls/hr IV.SIG Q24H [facility] Rx#:[id number] Oral 800 / 800 Output: Urine 950 / 950 Other: # Voids 3 Date of Last Bowel Movement 05/21/18 05/21/18 05/21/18 Narrative: GENERAL: Well-nourished, obese, well-developed adult male in no obvious distress. SKIN: Warm and dry. HEAD: Atraumatic. Normocephalic. CARDIOVASCULAR: Regular rate and rhythm. RESPIRATORY: No accessory muscle use. Clear to auscultation. Breath sounds equal bilaterally. GASTROINTESTINAL: Abdomen soft, non-tender, non-distended. Positive bowel sounds. MUSCULOSKELETAL: Extremities without clubbing, cyanosis, or edema. No obvious deformities. Limited range of motion bilateral upper extremities with 4/5 strength equal bilateral. NEUROLOGICAL: Awake and alert. No obvious cranial nerve deficits. Motor grossly within normal limits. Normal speech. Results - Labs CBC & Chem 7: 05/24/18 12:18 05/24/18 06:23 Laboratory Results - last 24 hr 05/23/18 05/23/18 05/24/18 16:44 21:46 03:41 WBC RBC Hgb Hct MCV MCH MCHC RDW Plt Count MPV Neut % (Auto) Lymph % (Auto) [place] % (Auto) Eos % (Auto) Baso % (Auto) Neut # (Auto) Lymph # (Auto) [place] # (Auto) Eos # (Auto) Baso # (Auto) WBC Differential Differential Comment Sodium Potassium Chloride Carbon Dioxide Anion Gap BUN Creatinine Estimated GFR POC Glucose 397 H 285 H 115 H Random Glucose Calcium 05/24/18 05/24/18 05/24/18 06:23 08:42 12:05 WBC RBC Hgb Hct MCV MCH MCHC RDW Plt Count MPV Neut % (Auto) Lymph % (Auto) [place] % (Auto) Eos % (Auto) Baso % (Auto) Neut # (Auto) Lymph # (Auto) [place] # (Auto) Eos # (Auto) Baso # (Auto) WBC Differential Differential Comment Sodium 140 Potassium 3.3 L Chloride 99 Carbon Dioxide 31.3 Anion Gap 10 BUN 25 H Creatinine 1.20 Estimated GFR 61 L POC Glucose 134 H 168 H Random Glucose 87 Calcium 8.6 05/24/18 12:18 WBC 18.4 H RBC 4.43 L Hgb 9.7 L Hct 32.3 L MCV 72.9 L MCH 21.8 L MCHC 29.9 L RDW 21.5 H Plt Count 366 MPV 7.6 Neut % (Auto) 92.3 H Lymph % (Auto) 4.6 L [place] % (Auto) 2.9 Eos % (Auto) 0.1 Baso % (Auto) 0.1 Neut # (Auto) 17.0 H Lymph # (Auto) 0.8 L [place] # (Auto) 0.5 Eos # (Auto) 0.0 Baso # (Auto) 0.0 WBC Differential . Differential Comment Auto diff final Sodium Potassium Chloride Carbon Dioxide Anion Gap BUN Creatinine Estimated GFR POC Glucose Random Glucose Calcium Assessment and Plan - Plan RESPIRATORY FAILURE COPD RONAN PLAN O2 NEEDED BRONCHODILATOR THERAPY PAP THERAPY NEURO EVAL.
--- NOTE | 2018-05-24 18:21 | P.PN ---
Subjective Interval history: Patient is seen sitting in room. Also seen while working with physical therapy. He continues to have episodes of arm and leg shaking with exertion. Does not have a repeat syncopal/seizure episode -stopped at onset of shaking and refocused. He denies any chest pain or shortness of breath. Denies nausea vomiting or diarrhea. He is resistant to going to rehab and would like to go home; extensive time spent educating him that he is physically very debilitated and needs rehab to avoid complications such as falls or further rehabilitation. Physical Exam Vital signs: Vital Signs 05/23/18 19:57 05/23/18 22:00 05/23/18 22:34 Temperature 98.1 F Pulse Rate 63 64 Respiratory Rate 18 18 Blood Pressure 164/74 H Pulse Oximetry 100 05/23/18 23:59 05/24/18 00:00 05/24/18 01:34 Temperature 98.0 F Pulse Rate 55 L 58 L Respiratory Rate 17 18 Blood Pressure 179/84 H Pulse Oximetry 98 05/24/18 03:25 05/24/18 04:00 05/24/18 05:16 Temperature 98.1 F Pulse Rate 56 L 52 L Respiratory Rate 17 Blood Pressure 140/84 Pulse Oximetry 98 98 05/24/18 08:00 05/24/18 12:00 05/24/18 16:00 Temperature 97.2 F L 97.5 F L 98.7 F Pulse Rate 57 L 65 62 Respiratory Rate 18 22 20 Blood Pressure 156/73 H 149/85 H 114/26 L Pulse Oximetry 97 94 L 94 L Intake & Output 05/23/18 05/24/18 05/24/18 18:59 06:59 18:59 Intake Total 900 / 900 580 / 580 Output Total 950 / 950 Balance 900 / 900 -950 / -950 580 / 580 Intake: IV 100 / 100 100 / 100 Rocephin Inj 1,000 MG In NS Inj 100 / 100 100 / 100 100 ML @ 200 mls/hr IV.SIG Q24H [facility] Rx#:[id number] Oral 800 / 800 480 / 480 Output: Urine 950 / 950 Other: # Voids 3 3 Date of Last Bowel Movement 05/21/18 05/21/18 05/21/18 # Bowel Movements 1 Narrative: GENERAL: Well-nourished, obese, well-developed adult male in no obvious distress. SKIN: Warm and dry. HEAD: Atraumatic. Normocephalic. CARDIOVASCULAR: Regular rate and rhythm. RESPIRATORY: No accessory muscle use. Clear to auscultation. Breath sounds equal bilaterally. GASTROINTESTINAL: Abdomen soft, non-tender, non-distended. Positive bowel sounds. MUSCULOSKELETAL: Extremities without clubbing, cyanosis, or edema. No obvious deformities. Limited range of motion bilateral upper extremities with 4/5 strength equal bilateral. NEUROLOGICAL: Awake and alert. No obvious cranial nerve deficits. Motor grossly within normal limits. Normal speech. Results - Labs CBC & Chem 7: 05/24/18 12:18 05/24/18 06:23 Laboratory Results - last 24 hr 05/23/18 05/24/18 05/24/18 21:46 03:41 06:23 WBC RBC Hgb Hct MCV MCH MCHC RDW Plt Count MPV Neut % (Auto) Lymph % (Auto) [place] % (Auto) Eos % (Auto) Baso % (Auto) Neut # (Auto) Lymph # (Auto) [place] # (Auto) Eos # (Auto) Baso # (Auto) WBC Differential Differential Comment Sodium 140 Potassium 3.3 L Chloride 99 Carbon Dioxide 31.3 Anion Gap 10 BUN 25 H Creatinine 1.20 Estimated GFR 61 L POC Glucose 285 H 115 H Random Glucose 87 Calcium 8.6 05/24/18 05/24/18 05/24/18 08:42 12:05 12:18 WBC 18.4 H RBC 4.43 L Hgb 9.7 L Hct 32.3 L MCV 72.9 L MCH 21.8 L MCHC 29.9 L RDW 21.5 H Plt Count 366 MPV 7.6 Neut % (Auto) 92.3 H Lymph % (Auto) 4.6 L [place] % (Auto) 2.9 Eos % (Auto) 0.1 Baso % (Auto) 0.1 Neut # (Auto) 17.0 H Lymph # (Auto) 0.8 L [place] # (Auto) 0.5 Eos # (Auto) 0.0 Baso # (Auto) 0.0 WBC Differential . Differential Comment Auto diff final Sodium Potassium Chloride Carbon Dioxide Anion Gap BUN Creatinine Estimated GFR POC Glucose 134 H 168 H Random Glucose Calcium 05/24/18 15:49 WBC RBC Hgb Hct MCV MCH MCHC RDW Plt Count MPV Neut % (Auto) Lymph % (Auto) [place] % (Auto) Eos % (Auto) Baso % (Auto) Neut # (Auto) Lymph # (Auto) [place] # (Auto) Eos # (Auto) Baso # (Auto) WBC Differential Differential Comment Sodium Potassium Chloride Carbon Dioxide Anion Gap BUN Creatinine Estimated GFR POC Glucose 221 H Random Glucose Calcium Assessment and Plan - Assessment (1) Generalized weakness Code(s): R53.1 - Weakness Status: Acute - Plan 67-year-old male with a past medical history significant for atrial fibrillation anticoagulated on Eliquis, diabetes mellitus, coronary artery disease status post ID, CHF (last ejection fraction 55%), COPD and a history of breast, colon and prostate cancers presents to ED on 05/12 due to syncopal episode. Symptomatic anemia/syncope/lower GI bleed H&H 7.8/25.0 Hemoccult positive ED with history of black, tarry stools - Gastroenterology consulted, appreciate recommendations - s/p 1 unit of PRBCs transfused -Status post EGD with snare polypectomy and colonoscopy with snare polypectomy and fulguration of AVM's 05/14. Procedure revealed gastric polyps, cecal AVM's, colon polyp and colon diverticulosis -H&H stable, continue monitoring for black or bloody stools, none thus far. -Lower abdominal pain, GI ordered CT of abd/pelvis: Eventration of right hemidiaphragm, moderate gaseous distention of hepatic flexure in the right upper quadrant with component sitting anterior to the liver, previous transpedicular lumbar fixation, otherwise negative. -KUB 05/16 showed no disproportion needed dilated loops of small or large bowel, limited quality exam. s/p Relistor by GI - + BM's no abd. pain Syncope. Recurrent presyncopal/syncopal episodes -Cardiology consulted, and evaluated patient. Placed consult once again for reevaluation of patient due to ongoing syncopal episodes as well as 's request, greatly appreciate assistance and input. -Loop recorder interrogated, [employer] report noted sinus rhythm with PACs ( phone number [phone]) -2D echo showing EF 5560%, normal LV size, mild to moderate concentric left ventricular hypertrophy, no definitive wall motion abnormalities, moderate mitral annular calcification, mild aortic valve stenosis present -Bilateral carotid ultrasound with less than 50% stenosis -Bilateral upper and lower extremity ultrasounds negative for DVT -EEG with mild encephalopathy and sleep -Neurology Dr. Nichols evaluated patient, on low-dose Keppra for possible seizure activity. -CT of C-spine and T- spine to due to possible clonus. - CT- T spine: Negative, CT of T-spine: Advanced degenerative changes at the endplates and facet joints, similar to recent CT. -Orthostatic BP's + on 05/19 (supine 162/68, sitting 140/63, standing 130/63) had a drop of 25mmHg w/ standing on systolic pressure. Repeat orthostatic BP on 05/21 was normal. -Blood pressure medications adjusted. -Discussed with Dr. Nichols 05/20, recommendations to discontinue Keppra, start low -dose Klonopin twice daily. Appreciate additional neurology evaluation. Hyperglycemia/diabetes mellitus -On cardiac and diabetic diet, last A1c 8.8 on 01/10/18 -NovoLog 50 units at ADM, NovoLog 20 units at 8 PM (as requested per ) Novolin N 70units in a.m and 75 units HS, Accu-Cheks, sliding scale high coverage -Continue 2 mg of glimepiride -BS improved but still somewhat labile due to steroid use. Hypokalemia Hyponatremia, mild - add daily replacement. Monitor labs Atrial fibrillation, chronic HTN, chronic -Continue amiodarone/metoprolol (TSH ordered) -Eliquis resumed, discussed with GI previously. No bleeding noted. CHF/CAD Status post ID -Continue beta-gunner, diuretics, as recommended by cardiology services -Continue home medications - BP on normal/low side, losartan and Zaroxolyn discontinued; restart losartan - BP increased. Left shoulder rotator cuff injury Right finger pain - Right hand x-ray negative for fractures. -X-ray reviewed, no acute abnormality, mild osteoarthritis at the acromioclavicular joint, continue Lidoderm patch. Sleep apnea-attending home CPAP machine -Consult pulmonary for further recommendations. JUNIOR -Monitor renal function intermittently. Persistent leukocytosis, chronic -Patient with a history of leukocytosis dating back to 2017 upon review of EMR -Possibly related to steroid use -Blood cultures collected on 05/12 with no growth to date -Pulmonary has started ceftriaxone and consulted infectious disease for further recommendations -Patient afebrile with no suspected source of infection - spoke with patient's pulmonary office. Recommends discharging and following up with outpatient clinic for ongoing antibiotic and steroid infusions. to follow up with patient. -05/22 = required 4 L O2 while with physical therapy to maintain sats; walk test ordered RLS -Continue home dose Requip Sleep apnea -Pulmonary services following, greatly appreciate assistance. -Cleared for discharge from pulmonary standpoint, discussed with Dr. 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 Discharge Planning: SNF/rehab
--- NOTE | 2018-05-24 19:35 | P.PNNEU ---
Subjective Subjective Comments: Pt is still having intermittent tremors. NO other neuro c/o Active Medications: Active Medications Hydrocodone Bitart/Acetaminophen ([place] 10/325) 1 tab PO Q6H PRN PRN Reason: Pain 2-10 Last Admin: 05/23/18 22:04 Dose: 1 tab Al Hydroxide/Mg Hydroxide (Milk Of Marianne Geller) 30 ml PO Q12H PRN PRN Reason: Mild Constipation Albuterol (Duoneb Neb (Prn)) 1 ampul NEB Q2HR NEB PRN PRN Reason: DYSPNEA Amiodarone HCl (Cordarone) 200 mg PO DAILY [facility] Last Admin: 05/24/18 09:09 Dose: 200 mg Amlodipine Besylate (Norvasc) 5 mg PO DAILY [facility] Last Admin: 05/15/18 08:45 Dose: 5 mg Apixaban (Eliquis) 5 mg PO BID [facility] Last Admin: 05/24/18 09:09 Dose: 5 mg Aspirin (Aspirin Chew) 81 mg PO DAILY [facility] Last Admin: 05/17/18 11:01 Dose: Not Given Atorvastatin Calcium (Lipitor) 10 mg PO HS [facility] Last Admin: 05/23/18 22:03 Dose: 10 mg Bisacodyl (Dulcolax Supp) 10 mg RECTAL DAILY PRN PRN Reason: SEVERE CONSITIPATION Budesonide/Formoterol Fumarate (Symbicort 160/4.5 Mcg Inh) 2 puff INH BID [facility] Last Admin: 05/24/18 09:10 Dose: 2 puff Clonazepam (Klonopin) 0.25 mg PO Q12HR [facility] Last Admin: 05/24/18 09:09 Dose: 0.25 mg Clopidogrel Bisulfate (Plavix) 75 mg PO DAILY [facility] Last Admin: 05/24/18 09:09 Dose: 75 mg Dextrose (D50w Vial) 50 ml IV.PUSH UNSCH PRN PRN Reason: PER HYPOGLYCEMIA PROTOCOL Duloxetine HCl (Cymbalta) 60 mg PO DAILY [facility] Last Admin: 05/24/18 09:09 Dose: 60 mg Furosemide (Lasix) 20 mg PO DAILY [facility] Last Admin: 05/21/18 08:25 Dose: 20 mg Gabapentin (Neurontin) 600 mg PO BID [facility] Last Admin: 05/16/18 08:20 Dose: 600 mg Glimepiride (Amaryl) 2 mg PO DAILY [facility] Last Admin: 05/24/18 09:10 Dose: 2 mg Glucagon (Glucagon Inj) 1 mg OTHER PRN PRN PRN Reason: for Hypoglycemia Protocol Ceftriaxone Sodium 1,000 mg/ (Sodium Chloride) 100 mls @ 200 mls/hr IV.SIG Q24H [facility] Last Infusion: 05/24/18 13:31 Dose: Infused Insulin Aspart (Novolog Insulin Correctional Sugar Inj) 0 unit SQ ACHS AND 3AM [facility]; Protocol Last Admin: 05/24/18 16:47 Dose: 10 unit Insulin Aspart (Novolog Inj) 50 units SQ DAILY@0800 [facility] Last Admin: 05/24/18 09:10 Dose: 50 units Insulin Aspart (Novolog Inj) 20 units SQ DAILY@2000 [facility] Last Admin: 05/23/18 22:05 Dose: 20 units Insulin Human NPH (Novolin N Inj) 75 units SQ HS [facility] Last Admin: 05/23/18 22:06 Dose: 75 units Insulin Human NPH (Novolin N Inj) 70 units SQ DAILY@0800 [facility] Last Admin: 05/24/18 09:10 Dose: 70 units Lactulose (Lactulose Liq) 30 ml PO DAILY PRN PRN Reason: SEVERE CONSITIPATION Lidocaine HCl (Lidoderm 5% Patch.12 Hr) 1 patch T-DERMAL DAILY [facility] Last Admin: 05/24/18 09:08 Dose: 1 patch Losartan Potassium (Cozaar) 50 mg PO DAILY [facility] Last Admin: 05/24/18 09:09 Dose: 50 mg Methylprednisolone Sodium Succinate (Solumedrol Inj) 40 mg IV.PUSH DAILY [facility] Last Admin: 05/24/18 09:10 Dose: 40 mg Metolazone (Zaroxolyn) 5 mg PO DAILY [facility] Last Admin: 05/20/18 08:59 Dose: Not Given Metoprolol Tartrate (Lopressor) 50 mg PO BID [facility] Last Admin: 05/24/18 09:09 Dose: 50 mg Miscellaneous (Pill Splitter) 1 each OTHER UNSCH PRN PRN Reason: SEE LABEL COMMENTS Naloxone HCl (Narcan Inj) 0.4 mg IV.PUSH UNSCH PRN PRN Reason: SEE LABEL COMMENTS Ondansetron HCl (Zofran Inj) 4 mg IV.PUSH Q6H PRN PRN Reason: NAUSEA Last Admin: 05/16/18 06:18 Dose: 4 mg Pantoprazole Sodium (Protonix) 40 mg PO DAILY [facility] Last Admin: 05/24/18 09:09 Dose: 40 mg Patch Removal (Remove Old Patch) 1 each T-DERMAL HS [facility] Last Admin: 05/23/18 22:10 Dose: 1 each Potassium Chloride (K-Dur) 20 meq PO BID [facility] Last Admin: 05/24/18 09:09 Dose: 20 meq Ropinirole HCl (Requip) 0.5 mg PO DAILY [facility] Last Admin: 05/24/18 09:09 Dose: 0.5 mg Ropinirole HCl (Requip) 1 mg PO HS [facility] Last Admin: 05/23/18 22:12 Dose: 1 mg Senna/Docusate Sodium (Danielle-Colace) 1 tab PO BID [facility] Last Admin: 05/24/18 09:09 Dose: 1 tab Sennosides (Senokot) 17.2 mg PO Q12H PRN PRN Reason: Moderate Constipation Sodium Chloride (Ns Flush) 2 ml IV.FLUSH PRN PRN PRN Reason: FLUSH AFTER USING IV ACCESS Sodium Chloride (Ns Flush) 2 ml IV.FLUSH BID [facility] Last Admin: 05/24/18 09:11 Dose: 2 ml Allergies/Adverse Reactions: Allergies Allergy/AdvReac Type Severity Reaction Status Date / Time adhesive Allergy Severe Rash Verified 05/12/18 19:12 atorvastatin Allergy Severe MUSCLE Verified 05/12/18 19:12 WEAKNESS pravastatin Allergy Severe MUSCLE Verified 05/12/18 19:12 WEAKNESS rosuvastatin Allergy Severe MUSCLE Verified 05/12/18 19:12 WEAKNESS morphine AdvReac Severe BECOMES Verified 05/12/18 19:12 VERY AGGRESSIVE Physical Exam Vital signs: Vital Signs 05/23/18 19:57 05/23/18 22:00 05/23/18 22:34 Temperature 98.1 F Pulse Rate 63 64 Respiratory Rate 18 18 Blood Pressure 164/74 H Pulse Oximetry 100 05/23/18 23:59 05/24/18 00:00 05/24/18 01:34 Temperature 98.0 F Pulse Rate 55 L 58 L Respiratory Rate 17 18 Blood Pressure 179/84 H Pulse Oximetry 98 05/24/18 03:25 05/24/18 04:00 05/24/18 05:16 Temperature 98.1 F Pulse Rate 56 L 52 L Respiratory Rate 17 Blood Pressure 140/84 Pulse Oximetry 98 98 05/24/18 08:00 05/24/18 12:00 05/24/18 16:00 Temperature 97.2 F L 97.5 F L 98.7 F Pulse Rate 57 L 65 62 Respiratory Rate 18 22 20 Blood Pressure 156/73 H 149/85 H 114/26 L Pulse Oximetry 97 94 L 94 L Intake & Output 05/24/18 05/24/18 05/25/18 06:59 18:59 06:59 Intake Total 580 / 580 Output Total 950 / 950 Balance -950 / -950 580 / 580 Intake: IV 100 / 100 Rocephin Inj 1,000 MG In NS Inj 100 / 100 100 ML @ 200 mls/hr IV.SIG Q24H [facility] Rx#:[id number] Oral 480 / 480 Output: Urine 950 / 950 Other: # Voids 3 3 Date of Last Bowel Movement 05/21/18 05/21/18 # Bowel Movements 1 - Routine Neurological Exam neuro exam stable. He is stable for dc to rehab from neuro standpoint. Objective Laboratory Results - last 24 hr 05/23/18 05/24/18 05/24/18 21:46 03:41 06:23 WBC RBC Hgb Hct MCV MCH MCHC RDW Plt Count MPV Neut % (Auto) Lymph % (Auto) [place] % (Auto) Eos % (Auto) Baso % (Auto) Neut # (Auto) Lymph # (Auto) [place] # (Auto) Eos # (Auto) Baso # (Auto) WBC Differential Differential Comment Sodium 140 Potassium 3.3 L Chloride 99 Carbon Dioxide 31.3 Anion Gap 10 BUN 25 H Creatinine 1.20 Estimated GFR 61 L POC Glucose 285 H 115 H Random Glucose 87 Calcium 8.6 05/24/18 05/24/18 05/24/18 08:42 12:05 12:18 WBC 18.4 H RBC 4.43 L Hgb 9.7 L Hct 32.3 L MCV 72.9 L MCH 21.8 L MCHC 29.9 L RDW 21.5 H Plt Count 366 MPV 7.6 Neut % (Auto) 92.3 H Lymph % (Auto) 4.6 L [place] % (Auto) 2.9 Eos % (Auto) 0.1 Baso % (Auto) 0.1 Neut # (Auto) 17.0 H Lymph # (Auto) 0.8 L [place] # (Auto) 0.5 Eos # (Auto) 0.0 Baso # (Auto) 0.0 WBC Differential . Differential Comment Auto diff final Sodium Potassium Chloride Carbon Dioxide Anion Gap BUN Creatinine Estimated GFR POC Glucose 134 H 168 H Random Glucose Calcium 05/24/18 15:49 WBC RBC Hgb Hct MCV MCH MCHC RDW Plt Count MPV Neut % (Auto) Lymph % (Auto) [place] % (Auto) Eos % (Auto) Baso % (Auto) Neut # (Auto) Lymph # (Auto) [place] # (Auto) Eos # (Auto) Baso # (Auto) WBC Differential Differential Comment Sodium Potassium Chloride Carbon Dioxide Anion Gap BUN Creatinine Estimated GFR POC Glucose 221 H Random Glucose Calcium Review/Management - Diagnosis (1) GI bleed Code(s): K92.2 - Gastrointestinal hemorrhage, unspecified Status: Acute Current Visit: Yes (2) Anemia Code(s): D64.9 - Anemia, unspecified Status: Acute Current Visit: Yes (3) Syncope Code(s): R55 - Syncope and collapse Status: Acute Current Visit: Yes (4) Generalized weakness Code(s): R53.1 - Weakness Status: Acute Current Visit: Yes - Review/Management Plan: CT C-spine, T-spine shows arthritis no fracture no obvious significant stenosis Syncopal weakness likely related to orthostatic hypotension, anemia deconditioning Recommendations trial of klonopin for [possible orthostatic tremor. (1) GI bleed Qualifiers: GI bleed type/associated pathology: unspecified gastrointestinal hemorrhage type Qualified Code(s): K92.2 - Gastrointestinal hemorrhage, unspecified (2) Anemia Qualifiers: Anemia type: unspecified type Qualified Code(s): D64.9 - Anemia, unspecified (3) Syncope Qualifiers: Syncope type: unspecified Qualified Code(s): R55 - Syncope and collapse
[2018-05-25] MEDS: Insulin NovoLOG Aspart Correctional Sugar Inj SQ SCH ×4 (03:55→18:21)
--- NOTE | 2018-05-25 04:46 | XR ---
EXAM DATE: 05/25/2018 3:59 AM EDT AGE/SEX: 67 years / Male INDICATIONS: Short of breath. CLINICAL DATA: This is the patient's initial encounter. Patient reports that signs and symptoms have been present for 1 day and indicates a pain score of 0/10. MEDICAL/SURGICAL HISTORY: . Carcinoma, colon. Carcinoma, breast. Congestive heart failure. 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 . Fusion, cervical. COMPARISON: [facility] [place] [facility] [place] 1[place] SINGLE AP, 05/12/2018. . FINDINGS: A single AP view of the chest demonstrates omission of the left lateral lung base. Heart is mildly en larged but unchanged. Lungs are clear without infiltrate or effusion. Bony structures are unremarkabl e. CONCLUSION: Cardiomegaly. Clear lungs. Electronically signed by: Sumeet Reese MD 05/25/2018 4:45 AM EDT
[2018-05-25 07:58] LABS: Calcium 8.1 mg/dL (8.5-10.1); Carbon Dioxide 29.4 meq/L (21.0-32.0); Potassium 3.1 meq/L (3.5-5.1)
[2018-05-25] MEDS ORDERED: MethylPREDNISolone Sod Succinate Inj 40 MG/ML Vial IV.PUSH SCH (09:00)
[2018-05-25] MEDS: Lidocaine 5% Patch T-DERMAL SCH (09:13)
[2018-05-25] MEDS: Glimepiride 2 MG Tablet PO SCH (09:14)
[2018-05-25] MEDS: Duloxetine 60 MG DR Capsule PO SCH (09:14)
[2018-05-25] MEDS: Amiodarone 200 MG Tablet PO SCH (09:14)
[2018-05-25] MEDS: clonazePAM 0.5 MG Tablet PO SCH ×2 (09:14→20:18)
[2018-05-25] MEDS: Metoprolol Tartrate 50 MG Tablet PO SCH ×2 (09:15→20:19)
[2018-05-25] MEDS: Senna/Docusate Sodium 8.6/50 MG Tablet PO SCH ×2 (09:19→20:19)
[2018-05-25] MEDS: Budesonide-Formoterol 160/4.5 MCG 6 GM Inhaler INH SCH ×2 (12:17→20:17)
--- NOTE | 2018-05-25 15:49 | P.PN ---
Subjective Interval history: Patient is seen lying in bed. His is present. He tells me that he had an episode of lower abdominal cramping after having a large bowel movement last night. He did not notice any blood or dark tarry stool. Cramping has resolved. He is urinating normally. No nausea or vomiting. Physical Exam Vital signs: Vital Signs 05/24/18 16:00 05/24/18 19:28 05/24/18 19:55 Temperature 98.7 F 98.9 F Pulse Rate 62 67 69 Respiratory Rate 20 19 Blood Pressure 114/26 L 152/66 H Pulse Oximetry 94 L 98 05/24/18 20:45 05/24/18 21:13 05/24/18 23:09 Temperature 97.5 F L Pulse Rate 79 Respiratory Rate 18 19 Blood Pressure 133/58 L Pulse Oximetry 96 96 05/25/18 03:22 05/25/18 04:22 05/25/18 08:00 Temperature 97.8 F 97.2 F L Pulse Rate 58 L 61 Respiratory Rate 19 18 18 Blood Pressure 113/62 109/68 Pulse Oximetry 95 94 L 05/25/18 09:24 05/25/18 12:00 Temperature 97.8 F Pulse Rate 52 L Respiratory Rate 18 Blood Pressure 128/60 Pulse Oximetry 95 93 L Intake & Output 05/24/18 05/25/18 05/25/18 18:59 06:59 18:59 Intake Total 580 / 580 480 / 480 Balance 580 / 580 480 / 480 Weight 152.4 kg Intake: IV 100 / 100 Rocephin Inj 1,000 MG In NS Inj 100 / 100 100 ML @ 200 mls/hr IV.SIG Q24H [facility] Rx#:[id number] Oral 480 / 480 480 / 480 Other: # Voids 3 3 Date of Last Bowel Movement 05/21/18 05/24/18 05/25/18 # Bowel Movements 1 4 Narrative: GENERAL: Well-nourished, obese, well-developed adult male in no obvious distress. SKIN: Warm and dry. HEAD: Atraumatic. Normocephalic. CARDIOVASCULAR: Regular rate and rhythm. RESPIRATORY: No accessory muscle use. Clear to auscultation. Breath sounds equal bilaterally. GASTROINTESTINAL: Abdomen soft, non-tender, non-distended. Positive bowel sounds. MUSCULOSKELETAL: Extremities without clubbing, cyanosis, or edema. No obvious deformities. Limited range of motion bilateral upper extremities with 4/5 strength equal bilateral. NEUROLOGICAL: Awake and alert. No obvious cranial nerve deficits. Motor grossly within normal limits. Normal speech. Results - Labs CBC & Chem 7: 05/24/18 12:18 05/25/18 06:10 Laboratory Results - last 24 hr 05/24/18 05/24/18 05/25/18 15:49 19:48 03:49 Sodium Potassium Chloride Carbon Dioxide Anion Gap BUN Creatinine Estimated GFR POC Glucose 221 H 297 H 84 Random Glucose Calcium 05/25/18 05/25/18 05/25/18 06:10 07:52 08:24 Sodium 144 Potassium 3.1 L Chloride 103 Carbon Dioxide 29.4 Anion Gap 12 BUN 22 H Creatinine 1.28 Estimated GFR 56 L POC Glucose 63 L 83 Random Glucose 54 L Calcium 8.1 L 05/25/18 05/25/18 11:11 12:12 Sodium Potassium Chloride Carbon Dioxide Anion Gap BUN Creatinine Estimated GFR POC Glucose 162 H 147 H Random Glucose Calcium - Imaging Impressions Chest X-Ray 05/25/18 06:00 CONCLUSION: Cardiomegaly. Clear lungs. Assessment and Plan - Assessment (1) Generalized weakness Code(s): R53.1 - Weakness Status: Acute - Plan 67-year-old male with a past medical history significant for atrial fibrillation anticoagulated on Eliquis, diabetes mellitus, coronary artery disease status post RI, CHF (last ejection fraction 55%), COPD and a history of breast, colon and prostate cancers presents to ED on 05/12 due to syncopal episode. Symptomatic anemia/syncope/lower GI bleed H&H 7.8/25.0 Hemoccult positive ED with history of black, tarry stools - Gastroenterology consulted, appreciate recommendations - s/p 1 unit of PRBCs transfused -Status post EGD with snare polypectomy and colonoscopy with snare polypectomy and fulguration of AVM's 05/14. Procedure revealed gastric polyps, cecal AVM's, colon polyp and colon diverticulosis -H&H stable, continue monitoring for black or bloody stools, none thus far. -Lower abdominal pain, GI ordered CT of abd/pelvis: Eventration of right hemidiaphragm, moderate gaseous distention of hepatic flexure in the right upper quadrant with component sitting anterior to the liver, previous transpedicular lumbar fixation, otherwise negative. -KUB 05/16 showed no disproportion needed dilated loops of small or large bowel, limited quality exam. s/p Relistor by GI - + BM's no abd. pain Syncope. Recurrent presyncopal/syncopal episodes -Cardiology consulted, and evaluated patient. Placed consult once again for reevaluation of patient due to ongoing syncopal episodes as well as 's request, greatly appreciate assistance and input. -Loop recorder interrogated, [employer] report noted sinus rhythm with PACs ( phone number [phone]) -2D echo showing EF 5560%, normal LV size, mild to moderate concentric left ventricular hypertrophy, no definitive wall motion abnormalities, moderate mitral annular calcification, mild aortic valve stenosis present -Bilateral carotid ultrasound with less than 50% stenosis -Bilateral upper and lower extremity ultrasounds negative for DVT -EEG with mild encephalopathy and sleep -Neurology Dr. Nichols evaluated patient, on low-dose Keppra for possible seizure activity. -CT of C-spine and T- spine to due to possible clonus. - CT- T spine: Negative, CT of T-spine: Advanced degenerative changes at the endplates and facet joints, similar to recent CT. -Orthostatic BP's + on 05/19 (supine 162/68, sitting 140/63, standing 130/63) had a drop of 25mmHg w/ standing on systolic pressure. Repeat orthostatic BP on 05/21 was normal. -Blood pressure medications adjusted. -Discussed with Dr. Nichols 05/20, recommendations to discontinue Keppra, start low -dose Klonopin twice daily. Appreciate additional neurology evaluation. Neurology has cleared patient for discharge to rehab. Hyperglycemia/diabetes mellitus -On cardiac and diabetic diet, last A1c 8.8 on 01/10/18 -NovoLog 50 units at ADM, NovoLog 20 units at 8 PM (as requested per ) Novolin N 70units in a.m and 75 units HS, Accu-Cheks, sliding scale high coverage. Blood sugar control has been difficult - and patient are very resistant to any adjustments in dosing. -Continue 2 mg of glimepiride -BS improved but still somewhat labile due to steroid use. Hypokalemia Hyponatremia, mild - add daily replacement. Monitor labs Atrial fibrillation, chronic HTN, chronic -Continue amiodarone/metoprolol (TSH ordered) -Eliquis resumed, discussed with GI previously. No bleeding noted. CHF/CAD Status post RI -Continue beta-gunner, diuretics (holding due to persistent hypokalemia), as recommended by cardiology services -Continue home medications - BP on normal/low side, losartan and Zaroxolyn discontinued; restart losartan - BP increased. Left shoulder rotator cuff injury Right finger pain - Right hand x-ray negative for fractures. -X-ray reviewed, no acute abnormality, mild osteoarthritis at the acromioclavicular joint, continue Lidoderm patch. Sleep apnea-attending home CPAP machine -Patient to use home machine. JUNIOR -Monitor renal function intermittently. Persistent leukocytosis, chronic -Patient with a history of leukocytosis dating back to 2017 upon review of EMR -Possibly related to steroid use; currently attempting to wean steroid use -Treated with ceftriaxone and consulted ID consulted; Blood cultures collected on 05/12 with no growth to date; Patient afebrile with no suspected source of infection - spoke with patient's pulmonary office. Recommends discharging and following up with outpatient clinic for ongoing antibiotic and steroid infusions. to follow up with patient. -05/22 = required 4 L O2 while with physical therapy to maintain sats; walk test ordered. Pulmonary reconsulted-VQ scan ordered 05/25. RLS -Continue home dose Requip DVT prophylaxis-Karrie Discussed Condition With: Patient, , technical staff assistant. Discharge Planning: SNF/rehab
--- NOTE | 2018-05-25 16:22 | NM ---
EXAM DATE: 05/25/2018 4:11 PM EDT AGE/SEX: 67 years / Male INDICATIONS: Shortness of breath, embolus. CLINICAL DATA: This is the patient's initial encounter. Patient reports that signs and symptoms have been present for 1 day and indicates a pain score of 0/10. MEDICAL/SURGICAL HISTORY: Congestive heart failure. Diabetes. Chronic obstructive pulmonary d isease. Coronary artery disease, a-fib, history of syncope, history of breast and colon cancer. Pro statectomy. Colon resection. Appendectomy. Cholecystectomy, history of knee, neck and back surgery . COMPARISON: [facility] [place], CHEST 1V SINGLE AP, 05/25/2018. . DOSE: 1.00 mCi Tc99m DTPA aerosol 8.8 mCi Tc99m MAA IV TECHNIQUE: Following five minutes of tidal breathing of DTPA aerosol, planar images of the lungs wer e performed in eight projections. The patient was then injected with MAA, and eight-view perfusion s can was performed. FINDINGS: There is a solitary mass defect involving superior segment left lower lobe and the patient chest x-ra y is clear. CONCLUSION: 1. Solitary matched defect on the left which is indeterminant probability for pulmonary embolus. Electronically signed by: Jeff Angulo MD 05/25/2018 4:20 PM EDT
[2018-05-25] MEDS ORDERED: Simethicone 80 MG Chew Tablet PO PRN (18:25)
[2018-05-26] MEDS: Insulin NovoLOG Aspart Correctional Sugar Inj SQ SCH ×6 (01:20→20:13)
[2018-05-26 06:06] LABS: Calcium 8.3 mg/dL (8.5-10.1); Carbon Dioxide 28.1 meq/L (21.0-32.0); Potassium 3.1 meq/L (3.5-5.1)
[2018-05-26] MEDS: Glimepiride 2 MG Tablet PO SCH ×2 (07:55→11:41)
[2018-05-26] MEDS: Lidocaine 5% Patch T-DERMAL SCH ×2 (07:55→11:41)
[2018-05-26] MEDS: predniSONE 20 MG Tablet PO SCH ×2 (07:56→11:41)
[2018-05-26] MEDS: Metoprolol Tartrate 50 MG Tablet PO SCH ×3 (07:56→20:12)
[2018-05-26] MEDS: Amiodarone 200 MG Tablet PO SCH ×2 (07:56→11:41)
[2018-05-26] MEDS: clonazePAM 0.5 MG Tablet PO SCH ×3 (07:56→20:11)
[2018-05-26] MEDS: Duloxetine 60 MG DR Capsule PO SCH ×2 (07:56→11:41)
[2018-05-26] MEDS ORDERED: MethylPREDNISolone Sod Succinate Inj 40 MG/ML Vial IV.PUSH SCH (09:00)
[2018-05-26] MEDS: Budesonide-Formoterol 160/4.5 MCG 6 GM Inhaler INH SCH ×2 (11:42→20:10)
[2018-05-26] MEDS: Senna/Docusate Sodium 8.6/50 MG Tablet PO SCH ×2 (11:42→20:14)
--- NOTE | 2018-05-26 16:06 | P.PN ---
Subjective Interval history: Patient is seen sitting on side of bed. is on speaker phone. He denies chest pain or shortness of breath. Continues to complain of abdominal cramping and now tells me he has watery diarrhea with blood in it. No nausea or vomiting. Continues to complain of weakness and intermittent tremors. Physical Exam Vital signs: Vital Signs 05/25/18 16:00 05/25/18 20:00 05/26/18 00:00 Temperature 97.2 F L 97.6 F 98 F Pulse Rate 65 60 62 Respiratory Rate 16 20 16 Blood Pressure 173/72 H 150/67 H 159/67 H Pulse Oximetry 16 L 96 96 05/26/18 00:05 05/26/18 00:30 05/26/18 04:00 Temperature 98 F Pulse Rate 58 L 63 Respiratory Rate 17 18 Blood Pressure 145/67 H Pulse Oximetry 95 05/26/18 06:13 05/26/18 07:53 05/26/18 12:00 Temperature 97.2 F L 97.8 F Pulse Rate 65 62 Respiratory Rate 16 18 16 Blood Pressure 128/58 L 134/60 Pulse Oximetry 95 95 Intake & Output 05/25/18 05/26/18 05/26/18 18:59 06:59 18:59 Intake Total 1060 / 1060 480 / 480 Balance 1060 / 1060 480 / 480 Intake: IV 100 / 100 Rocephin Inj 1,000 MG In NS Inj 100 / 100 100 ML @ 200 mls/hr IV.SIG Q24H [facility] Rx#:[id number] Oral 960 / 960 480 / 480 Other: # Voids 4 2 Date of Last Bowel Movement 05/25/18 05/26/18 05/26/18 # Bowel Movements 1 1 Narrative: GENERAL: Well-nourished, obese, well-developed adult male in no obvious distress. SKIN: Warm and dry. HEAD: Atraumatic. Normocephalic. CARDIOVASCULAR: Regular rate and rhythm. RESPIRATORY: No accessory muscle use. Clear to auscultation. Breath sounds equal bilaterally. GASTROINTESTINAL: Abdomen soft, non-tender, non-distended. No guarding. positive bowel sounds. MUSCULOSKELETAL: Extremities without clubbing, cyanosis, or edema. No obvious deformities. Limited range of motion bilateral upper extremities with 4/5 strength equal bilateral. NEUROLOGICAL: Awake and alert. No obvious cranial nerve deficits. Motor grossly within normal limits. Normal speech. Results - Labs CBC & Chem 7: 05/24/18 12:18 05/26/18 03:50 Laboratory Results - last 24 hr 05/25/18 05/25/18 05/25/18 16:57 19:20 21:29 Sodium Potassium Chloride Carbon Dioxide Anion Gap BUN Creatinine Estimated GFR POC Glucose 109 172 H 128 H Random Glucose Calcium 05/26/18 05/26/18 05/26/18 02:55 03:35 03:50 Sodium 143 Potassium 3.1 L Chloride 106 Carbon Dioxide 28.1 Anion Gap 9 BUN 24 H Creatinine 1.23 Estimated GFR 59 L POC Glucose 91 99 Random Glucose 82 Calcium 8.3 L 05/26/18 05/26/18 07:46 11:38 Sodium Potassium Chloride Carbon Dioxide Anion Gap BUN Creatinine Estimated GFR POC Glucose 86 166 H Random Glucose Calcium - Imaging Impressions Pulmonary Perfusion Imaging 05/25/18 00:00 CONCLUSION: 1. Solitary matched defect on the left which is indeterminant probability for pulmonary embolus. Assessment and Plan - Assessment (1) Generalized weakness Code(s): R53.1 - Weakness Status: Acute - Plan 67-year-old male with a past medical history significant for atrial fibrillation anticoagulated on Eliquis, diabetes mellitus, coronary artery disease status post MS, CHF (last ejection fraction 55%), COPD and a history of breast, colon and prostate cancers presents to ED on 05/12 due to syncopal episode. Symptomatic anemia/syncope/lower GI bleed -Hemoccult positive ED with history of black, tarry stools; s/p 1 unit of PRBCs transfused -Status post EGD with snare polypectomy and colonoscopy with snare polypectomy and fulguration of AVM's 05/14. Procedure revealed gastric polyps, cecal AVM's, colon polyp and colon diverticulosis -Lower abdominal pain, GI ordered CT of abd/pelvis: Eventration of right hemidiaphragm, moderate gaseous distention of hepatic flexure in the right upper quadrant with component sitting anterior to the liver, previous transpedicular lumbar fixation, otherwise negative. -KUB 05/16 showed no disproportion needed dilated loops of small or large bowel, limited quality exam. s/p Relistor by GI - 05/26 -developed watery, bloody diarrhea with significant cramping. C. difficile ordered. FOBT ordered. H&H ordered. Reconsult GI. Syncope. Recurrent presyncopal/syncopal episodes -Cardiology consulted, and evaluated patient. Placed consult once again for reevaluation of patient due to ongoing syncopal episodes as well as 's request, greatly appreciate assistance and input. -Loop recorder interrogated, [employer] report noted sinus rhythm with PACs ( phone number [phone]) -2D echo showing EF 5560%, normal LV size, mild to moderate concentric left ventricular hypertrophy, no definitive wall motion abnormalities, moderate mitral annular calcification, mild aortic valve stenosis present -Bilateral carotid ultrasound with less than 50% stenosis -Bilateral upper and lower extremity ultrasounds negative for DVT -EEG with mild encephalopathy and sleep -Neurology Dr. Nichols evaluated patient, on low-dose Keppra for possible seizure activity. -CT of C-spine and T- spine to due to possible clonus. - CT- T spine: Negative, CT of T-spine: Advanced degenerative changes at the endplates and facet joints, similar to recent CT. -Orthostatic BP's + on 05/19 (supine 162/68, sitting 140/63, standing 130/63) had a drop of 25mmHg w/ standing on systolic pressure. Repeat orthostatic BP on 05/21 was normal. -Blood pressure medications adjusted. -Discussed with Dr. Nichols 05/20, recommendations to discontinue Keppra, start low -dose Klonopin twice daily. Appreciate additional neurology evaluation. Neurology has cleared patient for discharge to rehab. Hyperglycemia/diabetes mellitus -On cardiac and diabetic diet, last A1c 8.8 on 01/10/18 -NovoLog 50 units at ADM, NovoLog 20 units at 8 PM (as requested per ) Novolin N 70units in a.m and 75 units HS, Accu-Cheks, sliding scale high coverage. Blood sugar control has been difficult - and patient are very resistant to any adjustments in dosing. -Continue 2 mg of glimepiride -BS improved but still somewhat labile due to steroid use -weaning steroid. Hypokalemia Hyponatremia, mild - add daily replacement. Monitor labs -Patient denies long-term chronic steroid use but does frequently get a Medrol Dosepak for COPD exacerbation -05/26 -Labs ordered to rule out aldosteronism. Consider starting spironolactone. Atrial fibrillation, chronic HTN, chronic -Continue amiodarone/metoprolol (TSH ordered - WNL) -Eliquis resumed, discussed with GI previously. CHF/CAD Status post MS -Continue beta-gunner, diuretics (stopped due to persistent hypokalemia), as recommended by cardiology services -Continue home medications - BP initially on normal/low side, losartan and Zaroxolyn discontinued; restarted losartan 05/23 - BP increased. Left shoulder rotator cuff injury Right finger pain - Right hand x-ray negative for fractures. -X-ray reviewed, no acute abnormality, mild osteoarthritis at the acromioclavicular joint, continue Lidoderm patch. Sleep apnea-attending home CPAP machine -Patient to use home machine. JUNIOR -Monitor renal function intermittently. Persistent leukocytosis, chronic -Patient with a history of leukocytosis dating back to 2016 upon review of EMR -Possibly related to steroid use; currently attempting to wean steroid use -Treated with ceftriaxone and consulted ID consulted; Blood cultures collected on 05/12 with no growth to date; Patient afebrile with no suspected source of infection - spoke with patient's pulmonary office. Recommends discharging and following up with outpatient clinic for ongoing antibiotic and steroid infusions. to follow up with patient. -05/22 = required 4 L O2 while with physical therapy to maintain sats; walk test ordered. Pulmonary reconsulted-VQ scan ordered 05/25 -results indicated possible pulmonary embolism however this is not thought to be acute by Dr. Avendaño. No further evaluation indicated. RLS -Continue home dose Requip DVT prophylaxis-Karrie Discussed Condition With: Patient, , medical staff physician and Dr. Simmons Discharge Planning: SNF/rehab
[2018-05-26 17:25] LABS: Hematocrit 30.8 % (39.0-51.0); Hemoglobin 9.1 gm/dL (13.0-17.0)
[2018-05-27] MEDS: Insulin NovoLOG Aspart Correctional Sugar Inj SQ SCH ×6 (02:46→21:00)
[2018-05-27 05:18] LABS: Baso % (Auto) 0.5 % (0.0-2.0); Eos # (Auto) 0.1 th/mm3 (0.0-0.4); Eos % (Auto) 1.6 % (0.0-4.0); Hematocrit 29.7 % (39.0-51.0); Lymph # (Auto) 2.1 th/mm3 (1.0-4.8); Lymph % (Auto) 23.9 % (9.0-44.0); Mean Corpuscular Hemoglobin 23.3 pg (27.0-34.0); Mean Platelet Volume 6.9 fL (7.0-11.0); Mono # (Auto) 0.7 th/mm3 (0.0-0.9); Mono % (Auto) 7.6 % (0.0-8.0); Neut % (Auto) 66.4 % (16.0-70.0); Platelet Count 422 th/mm3 (150-450); Red Blood Count 3.85 mil/mm3 (4.50-5.90); Red Cell Distribution Width 21.2 % (11.6-17.2)
[2018-05-27 05:20] LABS: Mean Corpuscular HGB Conc 30.3 % (32.0-36.0)
[2018-05-27 05:26] LABS: Calcium 8.8 mg/dL (8.5-10.1); Carbon Dioxide 27.5 meq/L (21.0-32.0); Magnesium 1.9 mg/dL (1.5-2.5); Phosphorus 2.7 mg/dL (2.5-4.9); Potassium 3.4 meq/L (3.5-5.1)
[2018-05-27] MEDS: Amiodarone 200 MG Tablet PO SCH ×2 (07:38→11:01)
[2018-05-27] MEDS: Glimepiride 2 MG Tablet PO SCH ×2 (07:38→11:01)
[2018-05-27] MEDS: Metoprolol Tartrate 50 MG Tablet PO SCH ×3 (07:39→20:32)
[2018-05-27] MEDS: predniSONE 20 MG Tablet PO SCH ×2 (07:39→17:48)
[2018-05-27] MEDS: clonazePAM 0.5 MG Tablet PO SCH ×3 (07:39→20:32)
[2018-05-27] MEDS: Lidocaine 5% Patch T-DERMAL SCH ×2 (07:39→11:02)
[2018-05-27] MEDS: Duloxetine 60 MG DR Capsule PO SCH ×2 (07:39→11:01)
[2018-05-27] MEDS: Budesonide-Formoterol 160/4.5 MCG 6 GM Inhaler INH SCH ×3 (07:40→20:29)
[2018-05-27] MEDS: Senna/Docusate Sodium 8.6/50 MG Tablet PO SCH ×2 (08:13→20:30)
[2018-05-27] MEDS ORDERED: predniSONE 20 MG Tablet PO SCH (10:37)
--- NOTE | 2018-05-27 10:58 | P.PNGI ---
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 <Sydnie Dorado - Last Filed: 05/27/18 11:04> Physical Exam Vital signs: Vital Signs 05/26/18 12:00 05/26/18 16:00 05/26/18 20:00 Temperature 97.8 F 98.0 F 97.9 F Pulse Rate 62 64 66 Respiratory Rate 16 16 16 Blood Pressure 134/60 131/75 133/70 Pulse Oximetry 95 94 L 95 05/26/18 23:19 05/26/18 23:41 05/27/18 00:00 Temperature 97.5 F L Pulse Rate 61 65 58 L Respiratory Rate 18 Blood Pressure 118/48 L Pulse Oximetry 97 05/27/18 04:00 05/27/18 05:16 05/27/18 07:12 Temperature 98.3 F Pulse Rate 66 Respiratory Rate 18 18 18 Blood Pressure 136/61 Pulse Oximetry 97 05/27/18 08:00 Temperature 98.2 F Pulse Rate 60 Respiratory Rate 20 Blood Pressure 189/77 H Pulse Oximetry 98 Intake & Output 05/26/18 05/27/18 05/27/18 18:59 06:59 18:59 Intake Total 1380 / 1380 1440 / 1440 Output Total 675 / 675 Balance 1380 / 1380 765 / 765 Intake: IV 100 / 100 Rocephin Inj 1,000 MG In NS Inj 100 / 100 100 ML @ 200 mls/hr IV.SIG Q24H [facility] Rx#:[id number] Oral 1280 / 1280 1440 / 1440 Output: Urine 675 / 675 Other: # Voids 2 3 Date of Last Bowel Movement 05/26/18 05/27/18 05/26/18 # Bowel Movements 2 1 - Constitutional no acute distress, morbidly obese - Routine HEENT Exam Head: Present: normocephalic ENT: Present: mucous membranes moist - Routine Neck Exam Present: supple - Routine Respiratory Exam Present: accessory muscle use (No obvious shortness of breath at rest) - Routine Cardiovascular Exam Present: S1, S2 - Routine Abdominal Exam Present: soft (Round,taut, active bowel sounds) - Routine Neurological Exam Present: alert (Answer simple questions but fair to poor historian) <Sydnie Dorado - Last Filed: 05/27/18 11:04> Vital signs: Vital Signs 05/26/18 23:19 05/26/18 23:41 05/27/18 00:00 Temperature 97.5 F L Pulse Rate 61 65 58 L Respiratory Rate 18 Blood Pressure 118/48 L Pulse Oximetry 97 05/27/18 04:00 05/27/18 05:16 05/27/18 07:12 Temperature 98.3 F Pulse Rate 66 Respiratory Rate 18 18 18 Blood Pressure 136/61 Pulse Oximetry 97 05/27/18 08:00 05/27/18 12:00 05/27/18 16:00 Temperature 98.2 F 98.0 F 97.8 F Pulse Rate 60 58 L 68 Respiratory Rate 20 20 20 Blood Pressure 189/77 H 144/64 H 149/62 H Pulse Oximetry 98 95 99 05/27/18 20:00 Temperature 98.3 F Pulse Rate 73 Respiratory Rate 16 Blood Pressure 139/61 Pulse Oximetry 99 Intake & Output 05/27/18 05/27/18 05/28/18 06:59 18:59 06:59 Intake Total 1440 / 1440 600 / 600 Output Total 675 / 675 Balance 765 / 765 600 / 600 Intake: Oral 1440 / 1440 600 / 600 Output: Urine 675 / 675 Other: # Voids 3 1 Date of Last Bowel Movement 05/27/18 05/26/18 05/26/18 # Bowel Movements 1 <Eugenia Cohen - Last Filed: 05/27/18 22:43> Results - Labs CBC & Chem 7: 05/27/18 04:01 05/27/18 04:01 Laboratory Results - last 24 hr 05/26/18 05/26/18 05/26/18 11:38 15:10 16:30 WBC RBC Hgb 9.1 L Hct 30.8 L MCV MCH MCHC RDW Plt Count MPV Neut % (Auto) Lymph % (Auto) [place] % (Auto) Eos % (Auto) Baso % (Auto) Neut # (Auto) Lymph # (Auto) [place] # (Auto) Eos # (Auto) Baso # (Auto) WBC Differential Differential Comment Sodium Potassium Chloride Carbon Dioxide Anion Gap BUN Creatinine Estimated GFR POC Glucose 166 H Random Glucose Calcium Phosphorus Magnesium Vitamin B12 St C. diff Tox Epid 027 Negative C. difficile Tox (PCR) Negative 05/26/18 05/26/18 05/27/18 17:05 19:48 02:44 WBC RBC Hgb Hct MCV MCH MCHC RDW Plt Count MPV Neut % (Auto) Lymph % (Auto) [place] % (Auto) Eos % (Auto) Baso % (Auto) Neut # (Auto) Lymph # (Auto) [place] # (Auto) Eos # (Auto) Baso # (Auto) WBC Differential Differential Comment Sodium Potassium Chloride Carbon Dioxide Anion Gap BUN Creatinine Estimated GFR POC Glucose 227 H 190 H 166 H Random Glucose Calcium Phosphorus Magnesium Vitamin B12 St C. diff Tox Epid 027 C. difficile Tox (PCR) 05/27/18 05/27/18 05/27/18 04:01 04:01 04:01 WBC 9.0 RBC 3.85 L Hgb 9.0 L Hct 29.7 L MCV 77.0 L D MCH 23.3 L MCHC 30.3 L RDW 21.2 H Plt Count 422 MPV 6.9 L Neut % (Auto) 66.4 Lymph % (Auto) 23.9 [place] % (Auto) 7.6 Eos % (Auto) 1.6 Baso % (Auto) 0.5 Neut # (Auto) 6.0 Lymph # (Auto) 2.1 [place] # (Auto) 0.7 Eos # (Auto) 0.1 Baso # (Auto) 0.0 WBC Differential . Differential Comment Auto diff final Sodium 143 Potassium 3.4 L Chloride 106 Carbon Dioxide 27.5 Anion Gap 10 BUN 16 Creatinine 1.12 Estimated GFR 66 L POC Glucose Random Glucose 122 H Calcium 8.8 Phosphorus 2.7 Magnesium 1.9 Vitamin B12 [address] C. diff Tox Epid 027 C. difficile Tox (PCR) 05/27/18 07:35 WBC RBC Hgb Hct MCV MCH MCHC RDW Plt Count MPV Neut % (Auto) Lymph % (Auto) [place] % (Auto) Eos % (Auto) Baso % (Auto) Neut # (Auto) Lymph # (Auto) [place] # (Auto) Eos # (Auto) Baso # (Auto) WBC Differential Differential Comment Sodium Potassium Chloride Carbon Dioxide Anion Gap BUN Creatinine Estimated GFR POC Glucose 142 H Random Glucose Calcium Phosphorus Magnesium Vitamin B12 St C. diff Tox Epid 027 C. difficile Tox (PCR) Microbiology 05/26/18 15:10 Stool Stool Occult Blood (CARISA) - Final Hemoccult negative <Sydnie Dorado - Last Filed: 05/27/18 11:04> - Labs CBC & Chem 7: 05/27/18 04:01 05/27/18 04:01 Laboratory Results - last 24 hr 05/27/18 05/27/18 05/27/18 02:44 04:01 04:01 WBC 9.0 RBC 3.85 L Hgb 9.0 L Hct 29.7 L MCV 77.0 L D MCH 23.3 L MCHC 30.3 L RDW 21.2 H Plt Count 422 MPV 6.9 L Neut % (Auto) 66.4 Lymph % (Auto) 23.9 [place] % (Auto) 7.6 Eos % (Auto) 1.6 Baso % (Auto) 0.5 Neut # (Auto) 6.0 Lymph # (Auto) 2.1 [place] # (Auto) 0.7 Eos # (Auto) 0.1 Baso # (Auto) 0.0 WBC Differential . Differential Comment Auto diff final Sodium 143 Potassium 3.4 L Chloride 106 Carbon Dioxide 27.5 Anion Gap 10 BUN 16 Creatinine 1.12 Estimated GFR 66 L POC Glucose 166 H Random Glucose 122 H Calcium 8.8 Phosphorus 2.7 Magnesium 1.9 Vitamin B12 05/27/18 05/27/18 05/27/18 04:01 07:35 12:33 WBC RBC Hgb Hct MCV MCH MCHC RDW Plt Count MPV Neut % (Auto) Lymph % (Auto) [place] % (Auto) Eos % (Auto) Baso % (Auto) Neut # (Auto) Lymph # (Auto) [place] # (Auto) Eos # (Auto) Baso # (Auto) WBC Differential Differential Comment Sodium Potassium Chloride Carbon Dioxide Anion Gap BUN Creatinine Estimated GFR POC Glucose 142 H 218 H Random Glucose Calcium Phosphorus Magnesium Vitamin B12 180 L 05/27/18 05/27/18 16:29 19:43 WBC RBC Hgb Hct MCV MCH MCHC RDW Plt Count MPV Neut % (Auto) Lymph % (Auto) [place] % (Auto) Eos % (Auto) Baso % (Auto) Neut # (Auto) Lymph # (Auto) [place] # (Auto) Eos # (Auto) Baso # (Auto) WBC Differential Differential Comment Sodium Potassium Chloride Carbon Dioxide Anion Gap BUN Creatinine Estimated GFR POC Glucose 218 H 208 H Random Glucose Calcium Phosphorus Magnesium Vitamin B12 Microbiology 05/26/18 15:10 Stool Stool Occult Blood (CARISA) - Final Hemoccult negative <VickiHelgaeverett Donald - Last Filed: 05/27/18 22:43> Assessment and Plan (1) GI bleed Status: Acute Code(s): K92.2 - Gastrointestinal hemorrhage, unspecified (2) Anemia Status: Acute Code(s): D64.9 - Anemia, unspecified - Plan 67-year-old overweight male comes into the hospital on 05/12/2018 with symptomatic anemia, melena stools, GI bleed, and falls, syncopal episodes 3 at home over the past week. Current symptoms have been going on off and on for 2 weeks, aggregating symptoms are probably related to Eliquis and Plavix dual anticoagulation for his atrial fib. According to the record patient had positive Hemoccult in the ER setting. Hemoglobin on admission was 7.8 and decreased to 7.4. Patient received 1 unit packed RBCs, PT/INR 1. EGD colonoscopy approximately [address] Harper possible history of polyps and patient notes previous colon resection but unknown timing. Patient denies history of colon cancer but states polyp removed? Eliquis and Plavix are on hold for 05/13/2018. Gastroenterology has been consulted to assist with his care and evaluate his symptoms. EGD colonoscopy has been discussed with patient. When entered the room patient had been given GoLYTELY per hospitalist on admission to drink throughout the evening but patient denies any bowel movement he has drank approximately 60% of the GoLYTELY, but states he will not drink anymore. 05/15/2018 patient's currently resting in the bed awake and alert with some mild anxiety. 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 Results were discussed again with patient and the findings and recommendations. Capsule endoscopy if patient continues to have problems with anemia and unstable hemoglobin patient states he has already had this procedure before. Repeat colonoscopy in one year. Current hemoglobin is 8.5 mildly decreased and WBC count 17.3. Patient continues to complain today of right lower quadrant and right-sided abdominal pain which he states started post colonoscopy yesterday he states the pain does wax and wane but does have a sharp consistency at times. Patient states no bowel movement since colonoscopy prep which is only been 24-30 hours. Family member on the phone discussed again findings of EGD/colonoscopy in the need to have patient evaluated for his Eliquis and Plavix related to his GI bleeds and findings. Patient is high risk for bleeds especially with dual anticoagulant therapy. CT scan without contrast ordered for today to evaluate new abdominal pain and to rule out any new issues. According to the record patient is back on his Plavix dose today. 05/16/18 Pt is resting in bed, still with RLQ pain, had some nausea and vomiting last night, no bleeding reported. Endorses constipation. He had multiple syncopal episodes yesterday and currently being worked up for this, cardiology, pulmonology and neurology consulted hgb is improving. Abdomen/Pelvis CT 05/15/18 1. Eventration of the right hemidiaphragm 2. Moderate gaseous distention of the hepatic flexure in the right upper quadrant with a component of this sitting anterior to the liver 3. Gallbladder surgically absent 4. Previous transpedicular lumbar fixation. 05/27/2018, GI was reconsulted because patient had some red blood noted and liquid diarrhea stools over the past 24 hours. Initial stool was large diarrhea with obvious red blood, second stool was a smaller amount but still noticeable red blood. Patient hemoglobin is currently 9, PT/INR 1, WBC count normalized at 9. C. difficile negative. 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 Patient was placed back on Plavix and Eliquis due to his cardiovascular disease and coronary artery disease. Dual management with anticoagulation makes patient very high risk for further GI bleeds. Need further discussion and reconsult with cardiology for holding blood thinners and any further GI procedures that need to be done. Currently we will observe for any further bleeding. Discussed with patient and his . According to staff patient is planning [facility] very soon. GI can follow but understand patient may need procedure for GI bleed in the near future. Plan Diet, cardiac, per attending Bowel regimen Hold Eliquis and Plavix Consider reconsult to cardiology for dual therapy with GI bleeding PPI Zofran Monitor labs and transfuse as necessary Patient was seen per myself and Dr. Cohen, note was written on his behalf <Sydnie Dorado M - Last Filed: 05/27/18 11:04> (1) GI bleed Status: Acute Code(s): K92.2 - Gastrointestinal hemorrhage, unspecified (2) Anemia Status: Acute Code(s): D64.9 - Anemia, unspecified - Attending Attestation Seen with Michelle, plan discussed with nursing stuff, given recent diagnosis of Diverticulosis and AVM's, recent anticoagulation restarted likely started the bleeding again. Will observe for bleeding the next few days and will need to reconsider anticoagulation if absouletly needed or not. Further recommendations to follow. <Eugenia Cohen A - Last Filed: 05/27/18 22:43> <Sydnie Dorado M - Last Filed: 05/27/18 11:04> (1) GI bleed Qualifiers: GI bleed type/associated pathology: unspecified gastrointestinal hemorrhage type Qualified Code(s): K92.2 - Gastrointestinal hemorrhage, unspecified (2) Anemia Qualifiers: Anemia type: unspecified type Qualified Code(s): D64.9 - Anemia, unspecified <Eugenia Cohen A - Last Filed: 05/27/18 22:43> (1) GI bleed Qualifiers: GI bleed type/associated pathology: unspecified gastrointestinal hemorrhage type Qualified Code(s): K92.2 - Gastrointestinal hemorrhage, unspecified (2) Anemia Qualifiers: Anemia type: unspecified type Qualified Code(s): D64.9 - Anemia, unspecified
[2018-05-27] MEDS: Ferrous Sulfate 325 MG Tablet PO SCH ×2 (11:01→20:32)
--- NOTE | 2018-05-27 13:00 | P.PN ---
Subjective Interval history: He is up and off O2 Sat 95. V/Q scan done.Pt already on Anticoagulants. Using CPAP at HS . Will go to rehab. Has some Rectal bleed. Physical Exam Vital signs: Vital Signs 05/26/18 16:00 05/26/18 20:00 05/26/18 23:19 Temperature 98.0 F 97.9 F Pulse Rate 64 66 61 Respiratory Rate 16 16 Blood Pressure 131/75 133/70 Pulse Oximetry 94 L 95 05/26/18 23:41 05/27/18 00:00 05/27/18 04:00 Temperature 97.5 F L 98.3 F Pulse Rate 65 58 L 66 Respiratory Rate 18 18 Blood Pressure 118/48 L 136/61 Pulse Oximetry 97 97 05/27/18 05:16 05/27/18 07:12 05/27/18 08:00 Temperature 98.2 F Pulse Rate 60 Respiratory Rate 18 18 20 Blood Pressure 189/77 H Pulse Oximetry 98 Intake & Output 05/26/18 05/27/18 05/27/18 18:59 06:59 18:59 Intake Total 1380 / 1380 1440 / 1440 Output Total 675 / 675 Balance 1380 / 1380 765 / 765 Intake: IV 100 / 100 Rocephin Inj 1,000 MG In NS Inj 100 / 100 100 ML @ 200 mls/hr IV.SIG Q24H [facility] Rx#:[id number] Oral 1280 / 1280 1440 / 1440 Output: Urine 675 / 675 Other: # Voids 2 3 Date of Last Bowel Movement 05/26/18 05/27/18 05/26/18 # Bowel Movements 2 1 Narrative: GENERAL: Well-nourished, obese,Male in no distress HEAD: Atraumatic. Normocephalic. CARDIOVASCULAR: Regular rate and rhythm. RESPIRATORY: No accessory muscle use.Distant breath sounds and Clear to auscultation. Breath sounds equal bilaterally. GASTROINTESTINAL: Abdomen soft, non-tender, non-distended. No guarding. positive bowel sounds. MUSCULOSKELETAL: Extremities without clubbing, cyanosis, or edema. No obvious deformities. NEUROLOGICAL: Awake and alert. Motor grossly within normal limits. Normal speech. Results - Labs CBC & Chem 7: 05/27/18 04:01 05/27/18 04:01 Laboratory Results - last 24 hr 05/26/18 05/26/18 05/26/18 15:10 16:30 17:05 WBC RBC Hgb 9.1 L Hct 30.8 L MCV MCH MCHC RDW Plt Count MPV Neut % (Auto) Lymph % (Auto) [place] % (Auto) Eos % (Auto) Baso % (Auto) Neut # (Auto) Lymph # (Auto) [place] # (Auto) Eos # (Auto) Baso # (Auto) WBC Differential Differential Comment Sodium Potassium Chloride Carbon Dioxide Anion Gap BUN Creatinine Estimated GFR POC Glucose 227 H Random Glucose Calcium Phosphorus Magnesium Vitamin B12 St C. diff Tox Epid 027 Negative C. difficile Tox (PCR) Negative 05/26/18 05/27/18 05/27/18 19:48 02:44 04:01 WBC 9.0 RBC 3.85 L Hgb 9.0 L Hct 29.7 L MCV 77.0 L D MCH 23.3 L MCHC 30.3 L RDW 21.2 H Plt Count 422 MPV 6.9 L Neut % (Auto) 66.4 Lymph % (Auto) 23.9 [place] % (Auto) 7.6 Eos % (Auto) 1.6 Baso % (Auto) 0.5 Neut # (Auto) 6.0 Lymph # (Auto) 2.1 [place] # (Auto) 0.7 Eos # (Auto) 0.1 Baso # (Auto) 0.0 WBC Differential . Differential Comment Auto diff final Sodium Potassium Chloride Carbon Dioxide Anion Gap BUN Creatinine Estimated GFR POC Glucose 190 H 166 H Random Glucose Calcium Phosphorus Magnesium Vitamin B12 St C. diff Tox Epid 027 C. difficile Tox (PCR) 05/27/18 05/27/18 05/27/18 04:01 04:01 07:35 WBC RBC Hgb Hct MCV MCH MCHC RDW Plt Count MPV Neut % (Auto) Lymph % (Auto) [place] % (Auto) Eos % (Auto) Baso % (Auto) Neut # (Auto) Lymph # (Auto) [place] # (Auto) Eos # (Auto) Baso # (Auto) WBC Differential Differential Comment Sodium 143 Potassium 3.4 L Chloride 106 Carbon Dioxide 27.5 Anion Gap 10 BUN 16 Creatinine 1.12 Estimated GFR 66 L POC Glucose 142 H Random Glucose 122 H Calcium 8.8 Phosphorus 2.7 Magnesium 1.9 Vitamin B12 [address] C. diff Tox Epid 027 C. difficile Tox (PCR) 05/27/18 12:33 WBC RBC Hgb Hct MCV MCH MCHC RDW Plt Count MPV Neut % (Auto) Lymph % (Auto) [place] % (Auto) Eos % (Auto) Baso % (Auto) Neut # (Auto) Lymph # (Auto) [place] # (Auto) Eos # (Auto) Baso # (Auto) WBC Differential Differential Comment Sodium Potassium Chloride Carbon Dioxide Anion Gap BUN Creatinine Estimated GFR POC Glucose 218 H Random Glucose Calcium Phosphorus Magnesium Vitamin B12 St C. diff Tox Epid 027 C. difficile Tox (PCR) Microbiology 05/26/18 15:10 Stool Stool Occult Blood (CARISA) - Final Hemoccult negative Assessment and Plan - Assessment (1) RONAN (obstructive sleep apnea) Code(s): G47.33 - Obstructive sleep apnea (adult) (pediatric) Status: Acute (2) COPD (chronic obstructive pulmonary disease) with acute bronchitis Code(s): J44.0 - Chronic obstructive pulmonary disease with acute lower respiratory infection; J20.9 - Acute bronchitis, unspecified Status: Acute (3) GI bleed Code(s): K92.2 - Gastrointestinal hemorrhage, unspecified Status: Acute (4) Anemia Code(s): D64.9 - Anemia, unspecified Status: Acute (5) Syncope Code(s): R55 - Syncope and collapse Status: Acute (6) Generalized weakness Code(s): R53.1 - Weakness Status: Acute (7) CAD (coronary artery disease) Code(s): I25.10 - Atherosclerotic heart disease of [place] coronary artery without angina pectoris Status: Chronic (8) Paroxysmal A-fib Code(s): I48.0 - Paroxysmal atrial fibrillation Status: Chronic (9) Hypertension Code(s): I10 - Essential (primary) hypertension Status: Chronic (10) Obesity Code(s): E66.9 - Obesity, unspecified Status: Chronic (11) Gastrointestinal bleeding Code(s): K92.2 - Gastrointestinal hemorrhage, unspecified Status: Acute - Plan 1. CBC,BMP 2. Prednisone 20 mg daily and taper 3. O2 2 L N/C while walking and CPAP at HS 4. Duoneb nebs qid. 5. Will go to rehab 6. GI Work up.for Bleeding 7. Pt will use His own CPAP machine at HS 8.Hold Eliquis (3) GI bleed Qualifiers: GI bleed type/associated pathology: unspecified gastrointestinal hemorrhage type Qualified Code(s): K92.2 - Gastrointestinal hemorrhage, unspecified (4) Anemia Qualifiers: Anemia type: unspecified type Qualified Code(s): D64.9 - Anemia, unspecified (5) Syncope Qualifiers: Syncope type: unspecified Qualified Code(s): R55 - Syncope and collapse
--- NOTE | 2018-05-27 16:19 | P.PN ---
Subjective Interval history: Patient is seen in room and in the hallway. is present. He continues to have soft stools and intermittent diarrhea. Per nursing he is moving around his room without significant tremors or "seizures". Sugars continue to be very labile however he is noted to eat a considerable amount of outside foods in addition to his hospital food. Denies any chest pain or shortness of breath. No nausea or vomiting. No fever or chills. Physical Exam Vital signs: Vital Signs 05/26/18 20:00 05/26/18 23:19 05/26/18 23:41 Temperature 97.9 F Pulse Rate 66 61 65 Respiratory Rate 16 Blood Pressure 133/70 Pulse Oximetry 95 05/27/18 00:00 05/27/18 04:00 05/27/18 05:16 Temperature 97.5 F L 98.3 F Pulse Rate 58 L 66 Respiratory Rate 18 18 18 Blood Pressure 118/48 L 136/61 Pulse Oximetry 97 97 05/27/18 07:12 05/27/18 08:00 05/27/18 12:00 Temperature 98.2 F 98.0 F Pulse Rate 60 58 L Respiratory Rate 18 20 20 Blood Pressure 189/77 H 144/64 H Pulse Oximetry 98 95 Intake & Output 05/26/18 05/27/18 05/27/18 18:59 06:59 18:59 Intake Total 1380 / 1380 1440 / 1440 Output Total 675 / 675 Balance 1380 / 1380 765 / 765 Intake: IV 100 / 100 Rocephin Inj 1,000 MG In NS Inj 100 / 100 100 ML @ 200 mls/hr IV.SIG Q24H COUNT INCLUDES THE [facility] Rx#:[id number] Oral 1280 / 1280 1440 / 1440 Output: Urine 675 / 675 Other: # Voids 2 3 Date of Last Bowel Movement 05/26/18 05/27/18 05/26/18 # Bowel Movements 2 1 Narrative: GENERAL: Well-nourished, obese, well-developed adult male in no obvious distress. SKIN: Warm and dry. HEAD: Atraumatic. Normocephalic. CARDIOVASCULAR: Regular rate and rhythm. RESPIRATORY: No accessory muscle use. Clear to auscultation. Breath sounds equal bilaterally. GASTROINTESTINAL: Abdomen soft, non-tender, non-distended. No guarding. positive bowel sounds. MUSCULOSKELETAL: Extremities without clubbing, cyanosis, or edema. No obvious deformities. Limited range of motion bilateral upper extremities with 4/5 strength equal bilateral. NEUROLOGICAL: Awake and alert. No obvious cranial nerve deficits. Motor grossly within normal limits. Normal speech. Results - Labs CBC & Chem 7: 05/27/18 04:01 05/27/18 04:01 Laboratory Results - last 24 hr 05/26/18 05/26/18 05/26/18 15:10 16:30 17:05 WBC RBC Hgb 9.1 L Hct 30.8 L MCV MCH MCHC RDW Plt Count MPV Neut % (Auto) Lymph % (Auto) [place] % (Auto) Eos % (Auto) Baso % (Auto) Neut # (Auto) Lymph # (Auto) [place] # (Auto) Eos # (Auto) Baso # (Auto) WBC Differential Differential Comment Sodium Potassium Chloride Carbon Dioxide Anion Gap BUN Creatinine Estimated GFR POC Glucose 227 H Random Glucose Calcium Phosphorus Magnesium Vitamin B12 St C. diff Tox Epid 027 Negative C. difficile Tox (PCR) Negative 05/26/18 05/27/18 05/27/18 19:48 02:44 04:01 WBC 9.0 RBC 3.85 L Hgb 9.0 L Hct 29.7 L MCV 77.0 L D MCH 23.3 L MCHC 30.3 L RDW 21.2 H Plt Count 422 MPV 6.9 L Neut % (Auto) 66.4 Lymph % (Auto) 23.9 [place] % (Auto) 7.6 Eos % (Auto) 1.6 Baso % (Auto) 0.5 Neut # (Auto) 6.0 Lymph # (Auto) 2.1 [place] # (Auto) 0.7 Eos # (Auto) 0.1 Baso # (Auto) 0.0 WBC Differential . Differential Comment Auto diff final Sodium Potassium Chloride Carbon Dioxide Anion Gap BUN Creatinine Estimated GFR POC Glucose 190 H 166 H Random Glucose Calcium Phosphorus Magnesium Vitamin B12 St C. diff Tox Epid 027 C. difficile Tox (PCR) 05/27/18 05/27/18 05/27/18 04:01 04:01 07:35 WBC RBC Hgb Hct MCV MCH MCHC RDW Plt Count MPV Neut % (Auto) Lymph % (Auto) [place] % (Auto) Eos % (Auto) Baso % (Auto) Neut # (Auto) Lymph # (Auto) [place] # (Auto) Eos # (Auto) Baso # (Auto) WBC Differential Differential Comment Sodium 143 Potassium 3.4 L Chloride 106 Carbon Dioxide 27.5 Anion Gap 10 BUN 16 Creatinine 1.12 Estimated GFR 66 L POC Glucose 142 H Random Glucose 122 H Calcium 8.8 Phosphorus 2.7 Magnesium 1.9 Vitamin B12 [address] C. diff Tox Epid 027 C. difficile Tox (PCR) 05/27/18 12:33 WBC RBC Hgb Hct MCV MCH MCHC RDW Plt Count MPV Neut % (Auto) Lymph % (Auto) [place] % (Auto) Eos % (Auto) Baso % (Auto) Neut # (Auto) Lymph # (Auto) [place] # (Auto) Eos # (Auto) Baso # (Auto) WBC Differential Differential Comment Sodium Potassium Chloride Carbon Dioxide Anion Gap BUN Creatinine Estimated GFR POC Glucose 218 H Random Glucose Calcium Phosphorus Magnesium Vitamin B12 St C. diff Tox Epid 027 C. difficile Tox (PCR) Microbiology 05/26/18 15:10 Stool Stool Occult Blood (CARISA) - Final Hemoccult negative Assessment and Plan - Assessment (1) Generalized weakness Code(s): R53.1 - Weakness Status: Acute - Plan 67-year-old male with a past medical history significant for atrial fibrillation anticoagulated on Eliquis, diabetes mellitus, coronary artery disease status post [place], CHF (last ejection fraction 55%), COPD and a history of breast, colon and prostate cancers presents to ED on 05/12 due to syncopal episode. Symptomatic anemia/syncope/lower GI bleed -Hemoccult positive ED with history of black, tarry stools; s/p 1 unit of PRBCs transfused -Status post EGD with snare polypectomy and colonoscopy with snare polypectomy and fulguration of AVM's 05/14. Procedure revealed gastric polyps, cecal AVM's, colon polyp and colon diverticulosis -Lower abdominal pain, GI ordered CT of abd/pelvis: Eventration of right hemidiaphragm, moderate gaseous distention of hepatic flexure in the right upper quadrant with component sitting anterior to the liver, previous transpedicular lumbar fixation, otherwise negative. -KUB 05/16 showed no disproportion needed dilated loops of small or large bowel, limited quality exam. s/p Relistor by GI - 05/26 -developed watery, bloody diarrhea with significant cramping. C. difficile ordered -negative. FOBT ordered -positive. H&H ordered -stable. Reconsult GI - considering colonoscopy; all anticoagulation stopped by GI on 05/27. Syncope. Recurrent presyncopal/syncopal episodes -Cardiology consulted, and evaluated patient. Placed consult once again for reevaluation of patient due to ongoing syncopal episodes as well as 's request, greatly appreciate assistance and input. -Loop recorder interrogated, Materia report noted sinus rhythm with PACs ( phone number [phone]) -2D echo showing EF 5560%, normal LV size, mild to moderate concentric left ventricular hypertrophy, no definitive wall motion abnormalities, moderate mitral annular calcification, mild aortic valve stenosis present -Bilateral carotid ultrasound with less than 50% stenosis -Bilateral upper and lower extremity ultrasounds negative for DVT -EEG with mild encephalopathy and sleep -Neurology Dr. Nichols evaluated patient, on low-dose Keppra for possible seizure activity with no improvement. -CT of C-spine and T- spine to due to possible clonus. - CT- T spine: Negative, CT of T-spine: Advanced degenerative changes at the endplates and facet joints, similar to recent CT. -Orthostatic BP's + on 05/19 (supine 162/68, sitting 140/63, standing 130/63) had a drop of 25mmHg w/ standing on systolic pressure. Repeat orthostatic BP on 05/21 was normal. -Blood pressure medications adjusted. -Discussed with Dr. Nichols 05/20, recommendations to discontinue Keppra, start low -dose Klonopin twice daily. Appreciate additional neurology evaluation. Neurology has cleared patient for discharge to rehab. Hyperglycemia/diabetes mellitus -On cardiac and diabetic diet, last A1c 8.8 on 01/10/18 -NovoLog 50 units at ADM, NovoLog 20 units at 8 PM (as requested per ) Novolin N 70units in a.m and 75 units HS, Accu-Cheks, sliding scale high coverage. Blood sugar control has been difficult - and patient are very resistant to any adjustments in dosing. -Continue 2 mg of glimepiride -BS improved but still somewhat labile due to steroid use -weaning steroid. Hypokalemia Hyponatremia, mild - add daily replacement. Monitor labs -Patient denies long-term chronic steroid use but does frequently get a Medrol Dosepak for COPD exacerbation -05/26 -Labs ordered to rule out aldosteronism. Consider starting spironolactone. Pending results. Atrial fibrillation, chronic HTN, chronic -Continue amiodarone/metoprolol (TSH ordered - WNL) -Eliquis resumed, discussed with GI previously. 05/27 - stopped by GI due to blood in stool CHF/CAD Status post [place] -Continue beta-gunner, diuretics (stopped due to persistent hypokalemia), as recommended by cardiology services -Continue home medications - BP initially on normal/low side, losartan and Zaroxolyn discontinued; restarted losartan 05/23 - BP was increased. Left shoulder rotator cuff injury Right finger pain - Right hand x-ray negative for fractures. -X-ray reviewed, no acute abnormality, mild osteoarthritis at the acromioclavicular joint, continue Lidoderm patch. Sleep apnea-attending home CPAP machine -Patient to use home machine. JUNIOR; improved -Monitor renal function intermittently. Persistent leukocytosis, chronic -Patient with a history of leukocytosis dating back to 2016 upon review of EMR -Possibly related to steroid use; currently attempting to wean steroid use -Treated with ceftriaxone and consulted ID consulted; Blood cultures collected on 05/12 with no growth to date; Patient afebrile with no suspected source of infection. Stopped ceftriaxone 05/26. - spoke with patient's pulmonary office. Recommends discharging and following up with outpatient clinic for ongoing antibiotic and steroid infusions. to follow up with patient. -05/22 = required 4 L O2 while with physical therapy to maintain sats; walk test ordered. Pulmonary reconsulted-VQ scan ordered 05/25 -results indicated possible pulmonary embolism however this is not thought to be acute by Dr. Avendaño. No further evaluation indicated. RLS -Continue home dose Requip DVT prophylaxis-Lindaquramakrishna Discussed Condition With: Patient, , staff mechanical engineer and Dr. Simmons Discharge Planning: SNF/rehab
[2018-05-28] MEDS: Insulin NovoLOG Aspart Correctional Sugar Inj SQ SCH ×5 (03:35→21:15)
[2018-05-28 07:08] LABS: Baso % (Auto) 0.3 % (0.0-2.0); Eos # (Auto) 0.1 th/mm3 (0.0-0.4); Hematocrit 27.6 % (39.0-51.0); Hemoglobin 8.3 gm/dL (13.0-17.0); Lymph # (Auto) 2.6 th/mm3 (1.0-4.8); Lymph % (Auto) 27.2 % (9.0-44.0); Mean Corpuscular Hemoglobin 22.2 pg (27.0-34.0); Mean Corpuscular Volume 73.7 fL (80.0-100.0); Mean Platelet Volume 6.8 fL (7.0-11.0); Mono # (Auto) 0.8 th/mm3 (0.0-0.9); Mono % (Auto) 8.2 % (0.0-8.0); Neut # (Auto) 6.1 th/mm3 (1.8-7.7); Neut % (Auto) 63.3 % (16.0-70.0); Platelet Count 423 th/mm3 (150-450); Red Blood Count 3.74 mil/mm3 (4.50-5.90); Red Cell Distribution Width 20.6 % (11.6-17.2); White Blood Count 9.6 th/mm3 (4.0-11.0)
[2018-05-28 07:10] LABS: Mean Corpuscular HGB Conc 30.1 % (32.0-36.0)
[2018-05-28 07:33] LABS: Calcium 8.4 mg/dL (8.5-10.1); Carbon Dioxide 26.9 meq/L (21.0-32.0); Potassium 3.7 meq/L (3.5-5.1)
[2018-05-28] MEDS: Senna/Docusate Sodium 8.6/50 MG Tablet PO SCH ×2 (08:38→21:18)
[2018-05-28] MEDS: Amiodarone 200 MG Tablet PO SCH (08:39)
[2018-05-28] MEDS: clonazePAM 0.5 MG Tablet PO SCH ×2 (08:40→21:16)
[2018-05-28] MEDS: Ferrous Sulfate 325 MG Tablet PO SCH ×2 (08:41→21:16)
[2018-05-28] MEDS: Metoprolol Tartrate 50 MG Tablet PO SCH ×2 (08:42→21:16)
[2018-05-28] MEDS: Glimepiride 2 MG Tablet PO SCH (08:42)
[2018-05-28] MEDS: predniSONE 20 MG Tablet PO SCH (08:42)
[2018-05-28] MEDS: Duloxetine 60 MG DR Capsule PO SCH (08:48)
[2018-05-28] MEDS: Lidocaine 5% Patch T-DERMAL SCH (08:52)
[2018-05-28] MEDS: Budesonide-Formoterol 160/4.5 MCG 6 GM Inhaler INH SCH ×2 (08:57→21:17)
--- NOTE | 2018-05-28 09:41 | P.PNIM ---
Subjective Interval history: Patient found sitting in bed watching TV. His nurses at the bedside during the interview. He has no complaints. Denies any abdominal pain. Stated that he continues to have GI bleed. Patient stated that this has improved. Denies any nausea or vomiting. He states that he continues to have syncopal episodes where his arm shakes and he passed out. Patient also complaining of not having full range of motion of his left shoulder after a syncopal episode a few weeks ago. Physical Exam Vital signs: Vital Signs 05/27/18 12:00 05/27/18 16:00 05/27/18 19:49 Temperature 98.0 F 97.8 F Pulse Rate 58 L 68 71 Respiratory Rate 20 20 Blood Pressure 144/64 H 149/62 H Pulse Oximetry 95 99 05/27/18 20:00 05/28/18 00:00 05/28/18 00:01 Temperature 98.3 F 98.3 F Pulse Rate 73 60 Respiratory Rate 16 24 18 Blood Pressure 139/61 170/72 H Pulse Oximetry 99 98 05/28/18 00:15 05/28/18 04:00 05/28/18 05:58 Temperature 97.9 F Pulse Rate 57 L 61 Respiratory Rate 12 18 Blood Pressure 151/84 H Pulse Oximetry 97 Intake & Output 05/27/18 05/28/18 05/28/18 18:59 06:59 18:59 Intake Total 600 / 600 570 / 570 Balance 600 / 600 570 / 570 Intake: Oral 600 / 600 570 / 570 Other: # Voids 1 4 Date of Last Bowel Movement 05/26/18 05/26/18 - Constitutional no acute distress - Routine HEENT Exam Head: Present: normocephalic - Routine Neck Exam Present: supple - Routine Respiratory Exam Present: CTA bilaterally - Routine Cardiovascular Exam Present: RRR, S1, S2 - Routine Abdominal Exam Present: soft, normoactive bowel sounds Comments: Positive tenderness palpation in the epigastric area. He does have a large belly. - Routine Extremities Exam Present: edema - Routine Neurological Exam Present: alert, oriented X3 Results - Labs CBC & Chem 7: 05/28/18 04:27 05/28/18 04:27 Laboratory Results - last 24 hr 05/27/18 05/27/18 05/27/18 12:33 16:29 19:43 WBC RBC Hgb Hct MCV MCH MCHC RDW Plt Count MPV Neut % (Auto) Lymph % (Auto) [place] % (Auto) Eos % (Auto) Baso % (Auto) Neut # (Auto) Lymph # (Auto) [place] # (Auto) Eos # (Auto) Baso # (Auto) WBC Differential Differential Comment Sodium Potassium Chloride Carbon Dioxide Anion Gap BUN Creatinine Estimated GFR POC Glucose 218 H 218 H 208 H Random Glucose Calcium 05/28/18 05/28/18 05/28/18 03:32 04:27 04:27 WBC 9.6 RBC 3.74 L Hgb 8.3 L Hct 27.6 L MCV 73.7 L MCH 22.2 L MCHC 30.1 L RDW 20.6 H Plt Count 423 MPV 6.8 L Neut % (Auto) 63.3 Lymph % (Auto) 27.2 [place] % (Auto) 8.2 H Eos % (Auto) 1.0 Baso % (Auto) 0.3 Neut # (Auto) 6.1 Lymph # (Auto) 2.6 [place] # (Auto) 0.8 Eos # (Auto) 0.1 Baso # (Auto) 0.0 WBC Differential . Differential Comment Auto diff final Sodium 143 Potassium 3.7 Chloride 107 Carbon Dioxide 26.9 Anion Gap 9 BUN 19 H Creatinine 0.99 Estimated GFR 76 L POC Glucose 132 H Random Glucose 102 Calcium 8.4 L 05/28/18 07:55 WBC RBC Hgb Hct MCV MCH MCHC RDW Plt Count MPV Neut % (Auto) Lymph % (Auto) [place] % (Auto) Eos % (Auto) Baso % (Auto) Neut # (Auto) Lymph # (Auto) [place] # (Auto) Eos # (Auto) Baso # (Auto) WBC Differential Differential Comment Sodium Potassium Chloride Carbon Dioxide Anion Gap BUN Creatinine Estimated GFR POC Glucose 98 Random Glucose Calcium Assessment and Plan - Assessment (1) Generalized weakness Code(s): R53.1 - Weakness Status: Acute - Plan (1) Generalized weakness Code(s): R53.1 - Weakness Status: Acute - Plan 67-year-old male with a past medical history significant for atrial fibrillation anticoagulated on Eliquis, diabetes mellitus, coronary artery disease status post [place], CHF (last ejection fraction 55%), COPD and a history of breast, colon and prostate cancers presents to ED on 05/12 due to syncopal episode. Symptomatic anemia/syncope/lower GI bleed -Hemoccult positive ED with history of black, tarry stools; s/p 1 unit of PRBCs transfused -Status post EGD with snare polypectomy and colonoscopy with snare polypectomy and fulguration of AVM's 05/14. Procedure revealed gastric polyps, cecal AVM's, colon polyp and colon diverticulosis -Lower abdominal pain, GI ordered CT of abd/pelvis: Eventration of right hemidiaphragm, moderate gaseous distention of hepatic flexure in the right upper quadrant with component sitting anterior to the liver, previous transpedicular lumbar fixation, otherwise negative. -KUB 05/16 showed no disproportion needed dilated loops of small or large bowel, limited quality exam. s/p Relistor by GI -Patient developed bloody diarrhea on 05/26. He continues to be symptomatic but is improving. C. difficile is negative. GI reconsulted. GI stated that will monitor patient off of anticoagulation and Plavix to determine if patient needs to have a repeat colonoscopy. Hemoglobin did drop today from 9 to 8.3. Continue to monitor H&H. Syncope. Recurrent presyncopal/syncopal episodes -Cardiology consulted, and evaluated patient. Placed consult once again for reevaluation of patient due to ongoing syncopal episodes as well as 's request, greatly appreciate assistance and input. -Loop recorder interrogated, 25eight report noted sinus rhythm with PACs ( phone number [phone]) -2D echo showing EF 5560%, normal LV size, mild to moderate concentric left ventricular hypertrophy, no definitive wall motion abnormalities, moderate mitral annular calcification, mild aortic valve stenosis present -Bilateral carotid ultrasound with less than 50% stenosis -Bilateral upper and lower extremity ultrasounds negative for DVT -EEG with mild encephalopathy and sleep -Neurology Dr. Nichols evaluated patient, on low-dose Keppra for possible seizure activity with no improvement. -CT of C-spine and T- spine to due to possible clonus. - CT- T spine: Negative, CT of T-spine: Advanced degenerative changes at the endplates and facet joints, similar to recent CT. -Orthostatic BP's + on 05/19 (supine 162/68, sitting 140/63, standing 130/63) had a drop of 25mmHg w/ standing on systolic pressure. Repeat orthostatic BP on 8/28 was normal. -Blood pressure medications adjusted. -Discussed with Dr. Nichols 05/20, recommendations to discontinue Keppra, start low -dose Klonopin twice daily. Appreciate additional neurology evaluation. Neurology has cleared patient for discharge to rehab. Hyperglycemia/diabetes mellitus -On cardiac and diabetic diet, last A1c 8.8 on 01/10/18 -NovoLog 50 units at ADM, NovoLog 20 units at 8 PM (as requested per ) Novolin N 70units in a.m and 75 units HS, Accu-Cheks, sliding scale high coverage. Blood sugar control has been difficult - and patient are very resistant to any adjustments in dosing. -Continue 2 mg of glimepiride -BS improved but still somewhat labile due to steroid use -weaning steroid. Hypokalemia Hyponatremia, mild - add daily replacement. Monitor labs -Patient denies long-term chronic steroid use but does frequently get a Medrol Dosepak for COPD exacerbation -05/26 -Labs ordered to rule out aldosteronism. Consider starting spironolactone. still pending results. Atrial fibrillation, chronic HTN, chronic -Continue amiodarone/metoprolol (TSH ordered - WNL) -Eliquis resumed, discussed with GI previously. 05/27 - stopped by GI due to blood in stool CHF/CAD Status post [place] -Continue beta-gunner, diuretics (stopped due to persistent hypokalemia), as recommended by cardiology services -Continue home medications - BP initially on normal/low side, losartan and Zaroxolyn discontinued; restarted losartan 05/23 - BP was increased. Left shoulder rotator cuff injury Right finger pain - Right hand x-ray negative for fractures. -X-ray reviewed, no acute abnormality, mild osteoarthritis at the acromioclavicular joint, continue Lidoderm patch. Sleep apnea-attending home CPAP machine -Patient to use home machine. JUNIOR; improved -Monitor renal function intermittently. Persistent leukocytosis, chronic -Patient with a history of leukocytosis dating back to 2017 upon review of EMR -Possibly related to steroid use; currently attempting to wean steroid use -Treated with ceftriaxone and consulted ID consulted; Blood cultures collected on 05/12 with no growth to date; Patient afebrile with no suspected source of infection. Stopped ceftriaxone 05/26. - spoke with patient's pulmonary office. Recommends discharging and following up with outpatient clinic for ongoing antibiotic and steroid infusions. to follow up with patient. -05/22 = required 4 L O2 while with physical therapy to maintain sats; walk test ordered. Pulmonary reconsulted-VQ scan ordered 05/25 -results indicated possible pulmonary embolism however this is not thought to be acute by Dr. Avendaño. No further evaluation indicated. RLS -Continue home dose Requip DVT prophylaxis-Karrie
--- NOTE | 2018-05-28 13:54 | P.PNGI ---
Subjective Interval history: Patient is sitting up in a chair When initially asked patient if he noticed any rectal bleeding he said he was not looking. No bowel movement as of this a.m., but states he does note a sensation of drainage. Currently Plavix and Eliquis on hold for observation, day 2 Discussed the possibility of colonoscopy in the a.m. to reevaluate bleeding but patient is refusing. is currently in the emergency room. Requesting that we wait 1 day longer. No nausea no vomiting, current hemoglobin 8.3 <Sydnie Dorado - Last Filed: 05/28/18 14:58> Physical Exam Vital signs: Vital Signs 05/27/18 16:00 05/27/18 19:49 05/27/18 20:00 Temperature 97.8 F 98.3 F Pulse Rate 68 71 73 Respiratory Rate 20 16 Blood Pressure 149/62 H 139/61 Pulse Oximetry 99 99 05/28/18 00:00 05/28/18 00:01 05/28/18 00:15 Temperature 98.3 F Pulse Rate 60 57 L Respiratory Rate 24 18 Blood Pressure 170/72 H Pulse Oximetry 98 05/28/18 04:00 05/28/18 05:58 05/28/18 08:00 Temperature 97.9 F 97.4 F L Pulse Rate 61 63 Respiratory Rate 12 18 18 Blood Pressure 151/84 H 186/76 H Pulse Oximetry 97 98 Intake & Output 05/27/18 05/28/18 05/28/18 18:59 06:59 18:59 Intake Total 600 / 600 570 / 570 Output Total 200 / 200 Balance 600 / 600 570 / 570 -200 / -200 Intake: Oral 600 / 600 570 / 570 Output: Urine 200 / 200 Other: # Voids 1 4 Date of Last Bowel Movement 05/26/18 05/26/18 - Constitutional no acute distress, morbidly obese - Routine HEENT Exam Head: Present: normocephalic ENT: Present: mucous membranes moist - Routine Respiratory Exam Present: accessory muscle use (No obvious shortness of breath at rest) - Routine Abdominal Exam Present: normoactive bowel sounds (Soft bowel sounds no obvious tenderness) - Routine Neurological Exam Present: alert (Awake, but poor historian) <Sydnie Dorado - Last Filed: 05/28/18 14:58> Vital signs: Vital Signs 05/27/18 19:49 05/27/18 20:00 05/28/18 00:00 Temperature 98.3 F 98.3 F Pulse Rate 71 73 60 Respiratory Rate 16 24 Blood Pressure 139/61 170/72 H Pulse Oximetry 99 98 05/28/18 00:01 05/28/18 00:15 05/28/18 04:00 Temperature 97.9 F Pulse Rate 57 L 61 Respiratory Rate 18 12 Blood Pressure 151/84 H Pulse Oximetry 97 05/28/18 05:58 05/28/18 08:00 05/28/18 12:00 Temperature 97.4 F L 97.8 F Pulse Rate 63 58 L Respiratory Rate 18 18 18 Blood Pressure 186/76 H 132/60 Pulse Oximetry 98 98 Intake & Output 05/27/18 05/28/18 05/28/18 18:59 06:59 18:59 Intake Total 600 / 600 570 / 570 Output Total 200 / 200 Balance 600 / 600 570 / 570 -200 / -200 Intake: Oral 600 / 600 570 / 570 Output: Urine 200 / 200 Other: # Voids 1 4 Date of Last Bowel Movement 05/26/18 05/26/18 05/27/18 <Eugenia Cohen A - Last Filed: 05/28/18 18:01> Results - Labs CBC & Chem 7: 05/28/18 04:27 05/28/18 04:27 Laboratory Results - last 24 hr 05/27/18 05/27/18 05/28/18 16:29 19:43 03:32 WBC RBC Hgb Hct MCV MCH MCHC RDW Plt Count MPV Neut % (Auto) Lymph % (Auto) [place] % (Auto) Eos % (Auto) Baso % (Auto) Neut # (Auto) Lymph # (Auto) [place] # (Auto) Eos # (Auto) Baso # (Auto) WBC Differential Differential Comment Sodium Potassium Chloride Carbon Dioxide Anion Gap BUN Creatinine Estimated GFR POC Glucose 218 H 208 H 132 H Random Glucose Calcium 05/28/18 05/28/18 05/28/18 04:27 04:27 07:55 WBC 9.6 RBC 3.74 L Hgb 8.3 L Hct 27.6 L MCV 73.7 L MCH 22.2 L MCHC 30.1 L RDW 20.6 H Plt Count 423 MPV 6.8 L Neut % (Auto) 63.3 Lymph % (Auto) 27.2 [place] % (Auto) 8.2 H Eos % (Auto) 1.0 Baso % (Auto) 0.3 Neut # (Auto) 6.1 Lymph # (Auto) 2.6 [place] # (Auto) 0.8 Eos # (Auto) 0.1 Baso # (Auto) 0.0 WBC Differential . Differential Comment Auto diff final Sodium 143 Potassium 3.7 Chloride 107 Carbon Dioxide 26.9 Anion Gap 9 BUN 19 H Creatinine 0.99 Estimated GFR 76 L POC Glucose 98 Random Glucose 102 Calcium 8.4 L 05/28/18 11:31 WBC RBC Hgb Hct MCV MCH MCHC RDW Plt Count MPV Neut % (Auto) Lymph % (Auto) [place] % (Auto) Eos % (Auto) Baso % (Auto) Neut # (Auto) Lymph # (Auto) [place] # (Auto) Eos # (Auto) Baso # (Auto) WBC Differential Differential Comment Sodium Potassium Chloride Carbon Dioxide Anion Gap BUN Creatinine Estimated GFR POC Glucose 143 H Random Glucose Calcium <Sydnie Dorado - Last Filed: 05/28/18 14:58> - Labs CBC & Chem 7: 05/28/18 04:27 05/28/18 04:27 Laboratory Results - last 24 hr 05/27/18 05/28/18 05/28/18 19:43 03:32 04:27 WBC 9.6 RBC 3.74 L Hgb 8.3 L Hct 27.6 L MCV 73.7 L MCH 22.2 L MCHC 30.1 L RDW 20.6 H Plt Count 423 MPV 6.8 L Neut % (Auto) 63.3 Lymph % (Auto) 27.2 [place] % (Auto) 8.2 H Eos % (Auto) 1.0 Baso % (Auto) 0.3 Neut # (Auto) 6.1 Lymph # (Auto) 2.6 [place] # (Auto) 0.8 Eos # (Auto) 0.1 Baso # (Auto) 0.0 WBC Differential . Differential Comment Auto diff final Sodium Potassium Chloride Carbon Dioxide Anion Gap BUN Creatinine Estimated GFR POC Glucose 208 H 132 H Random Glucose Calcium 05/28/18 05/28/18 05/28/18 04:27 07:55 11:31 WBC RBC Hgb Hct MCV MCH MCHC RDW Plt Count MPV Neut % (Auto) Lymph % (Auto) [place] % (Auto) Eos % (Auto) Baso % (Auto) Neut # (Auto) Lymph # (Auto) [place] # (Auto) Eos # (Auto) Baso # (Auto) WBC Differential Differential Comment Sodium 143 Potassium 3.7 Chloride 107 Carbon Dioxide 26.9 Anion Gap 9 BUN 19 H Creatinine 0.99 Estimated GFR 76 L POC Glucose 98 143 H Random Glucose 102 Calcium 8.4 L 05/28/18 16:58 WBC RBC Hgb Hct MCV MCH MCHC RDW Plt Count MPV Neut % (Auto) Lymph % (Auto) [place] % (Auto) Eos % (Auto) Baso % (Auto) Neut # (Auto) Lymph # (Auto) [place] # (Auto) Eos # (Auto) Baso # (Auto) WBC Differential Differential Comment Sodium Potassium Chloride Carbon Dioxide Anion Gap BUN Creatinine Estimated GFR POC Glucose 231 H Random Glucose Calcium <Eugenia Cohen - Last Filed: 05/28/18 18:01> Assessment and Plan (1) GI bleed Status: Acute Code(s): K92.2 - Gastrointestinal hemorrhage, unspecified (2) Anemia Status: Acute Code(s): D64.9 - Anemia, unspecified - Plan 67-year-old overweight male comes into the hospital on 05/12/2018 with symptomatic anemia, melena stools, GI bleed, and falls, syncopal episodes 3 at home over the past week. Current symptoms have been going on off and on for 2 weeks, aggregating symptoms are probably related to Eliquis and Plavix dual anticoagulation for his atrial fib. According to the record patient had positive Hemoccult in the ER setting. Hemoglobin on admission was 7.8 and decreased to 7.4. Patient received 1 unit packed RBCs, PT/INR 1. EGD colonoscopy approximately [address] Harper possible history of polyps and patient notes previous colon resection but unknown timing. Patient denies history of colon cancer but states polyp removed? Eliquis and Plavix are on hold for 05/13/2018. Gastroenterology has been consulted to assist with his care and evaluate his symptoms. EGD colonoscopy has been discussed with patient. When entered the room patient had been given GoLYTELY per hospitalist on admission to drink throughout the evening but patient denies any bowel movement he has drank approximately 60% of the GoLYTELY, but states he will not drink anymore. 05/15/2018 patient's currently resting in the bed awake and alert with some mild anxiety. 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 Results were discussed again with patient and the findings and recommendations. Capsule endoscopy if patient continues to have problems with anemia and unstable hemoglobin patient states he has already had this procedure before. Repeat colonoscopy in one year. Current hemoglobin is 8.5 mildly decreased and WBC count 17.3. Patient continues to complain today of right lower quadrant and right-sided abdominal pain which he states started post colonoscopy yesterday he states the pain does wax and wane but does have a sharp consistency at times. Patient states no bowel movement since colonoscopy prep which is only been 24-30 hours. Family member on the phone discussed again findings of EGD/colonoscopy in the need to have patient evaluated for his Eliquis and Plavix related to his GI bleeds and findings. Patient is high risk for bleeds especially with dual anticoagulant therapy. CT scan without contrast ordered for today to evaluate new abdominal pain and to rule out any new issues. According to the record patient is back on his Plavix dose today. 05/16/18 Pt is resting in bed, still with RLQ pain, had some nausea and vomiting last night, no bleeding reported. Endorses constipation. He had multiple syncopal episodes yesterday and currently being worked up for this, cardiology, pulmonology and neurology consulted hgb is improving. Abdomen/Pelvis CT 05/15/18 1. Eventration of the right hemidiaphragm 2. Moderate gaseous distention of the hepatic flexure in the right upper quadrant with a component of this sitting anterior to the liver 3. Gallbladder surgically absent 4. Previous transpedicular lumbar fixation. 05/27/2018, GI was reconsulted because patient had some red blood noted and liquid diarrhea stools over the past 24 hours. Initial stool was large diarrhea with obvious red blood, second stool was a smaller amount but still noticeable red blood. Patient hemoglobin is currently 9, PT/INR 1, WBC count normalized at 9. C. difficile negative. 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 Patient was placed back on Plavix and Eliquis due to his cardiovascular disease and coronary artery disease. Dual management with anticoagulation makes patient very high risk for further GI bleeds. Need further discussion and reconsult with cardiology for holding blood thinners and any further GI procedures that need to be done. Currently we will observe for any further bleeding. Discussed with patient and his . According to staff patient is planning [facility] very soon. GI can follow but understand patient may need procedure for GI bleed in the near future. ' 05/28/2018 current hemoglobin 8.3, mild decrease from 9. over the past 24 hours. Patient is day 2 hold off Plavix and Eliquis. No BM today but patient states still having rectal bleeding but then will state he does not know. Discussion with cardiology today, Dr. Lopez, who also states patient is high risk without anticoagulant on board. Recommendations include Plavix and aspirin or Plavix and Eliquis. Patient appears to be asymptomatic this a.m. discussed with patient bowel regimen and no straining. Patient is also on iron supplements which may discolor the stool. Discussed with patient again evaluation of colonoscopy for any further bleeding since patient's hemoglobin has declined. Patient is very worried and upset right now secondary to his is currently in the emergency room with possible SD. Went with Dr. Guzmán in the room to discuss patient's pros and cons with not restarting his blood thinner for 24 hours and hold off on any further procedures. He currently is requesting to hold all blood thinners and procedures for 24 hours. Plan Diet, cardiac, per attending Bowel regimen, add MiraLAX daily Consider colonoscopy if patient agrees, patient also refusing to restart anticoagulants at least for 24 hours. No straining instructions to patient with defecation PPI Zofran Monitor labs and transfuse as necessary Patient was seen per myself and Dr. Cohen, note was written on his behalf <Sydnie Dorado - Last Filed: 05/28/18 14:58> (1) GI bleed Status: Acute Code(s): K92.2 - Gastrointestinal hemorrhage, unspecified (2) Anemia Status: Acute Code(s): D64.9 - Anemia, unspecified - Attending Attestation Agree with above assessment and plan. Concerned about his 's condition, requesting to hold off any intervention for now. Will follow up clinically and HH. <Eugenia Cohen - Last Filed: 05/28/18 18:01> <Sydnie Dorado M - Last Filed: 05/28/18 14:58> (1) GI bleed Qualifiers: GI bleed type/associated pathology: unspecified gastrointestinal hemorrhage type Qualified Code(s): K92.2 - Gastrointestinal hemorrhage, unspecified (2) Anemia Qualifiers: Anemia type: unspecified type Qualified Code(s): D64.9 - Anemia, unspecified <Eugenia Cohen A - Last Filed: 05/28/18 18:01> (1) GI bleed Qualifiers: GI bleed type/associated pathology: unspecified gastrointestinal hemorrhage type Qualified Code(s): K92.2 - Gastrointestinal hemorrhage, unspecified (2) Anemia Qualifiers: Anemia type: unspecified type Qualified Code(s): D64.9 - Anemia, unspecified
--- NOTE | 2018-05-28 14:42 | P.PN ---
Subjective Interval history: alert less sob Physical Exam Vital signs: Vital Signs 05/27/18 16:00 05/27/18 19:49 05/27/18 20:00 Temperature 97.8 F 98.3 F Pulse Rate 68 71 73 Respiratory Rate 20 16 Blood Pressure 149/62 H 139/61 Pulse Oximetry 99 99 05/28/18 00:00 05/28/18 00:01 05/28/18 00:15 Temperature 98.3 F Pulse Rate 60 57 L Respiratory Rate 24 18 Blood Pressure 170/72 H Pulse Oximetry 98 05/28/18 04:00 05/28/18 05:58 05/28/18 08:00 Temperature 97.9 F 97.4 F L Pulse Rate 61 63 Respiratory Rate 12 18 18 Blood Pressure 151/84 H 186/76 H Pulse Oximetry 97 98 Intake & Output 05/27/18 05/28/18 05/28/18 18:59 06:59 18:59 Intake Total 600 / 600 570 / 570 Output Total 200 / 200 Balance 600 / 600 570 / 570 -200 / -200 Intake: Oral 600 / 600 570 / 570 Output: Urine 200 / 200 Other: # Voids 1 4 Date of Last Bowel Movement 05/26/18 05/26/18 Narrative: GENERAL: Well-nourished, obese, well-developed adult male in no obvious distress. SKIN: Warm and dry. HEAD: Atraumatic. Normocephalic. CARDIOVASCULAR: Regular rate and rhythm. RESPIRATORY: No accessory muscle use. Clear to auscultation. Breath sounds equal bilaterally. GASTROINTESTINAL: Abdomen soft, non-tender, non-distended. No guarding. positive bowel sounds. MUSCULOSKELETAL: Extremities without clubbing, cyanosis, or edema. No obvious deformities. Limited range of motion bilateral upper extremities with 4/5 strength equal bilateral. NEUROLOGICAL: Awake and alert. No obvious cranial nerve deficits. Motor grossly within normal limits. Normal speech. Results - Labs CBC & Chem 7: 05/28/18 04:27 05/28/18 04:27 Laboratory Results - last 24 hr 05/27/18 05/27/18 05/28/18 16:29 19:43 03:32 WBC RBC Hgb Hct MCV MCH MCHC RDW Plt Count MPV Neut % (Auto) Lymph % (Auto) [place] % (Auto) Eos % (Auto) Baso % (Auto) Neut # (Auto) Lymph # (Auto) [place] # (Auto) Eos # (Auto) Baso # (Auto) WBC Differential Differential Comment Sodium Potassium Chloride Carbon Dioxide Anion Gap BUN Creatinine Estimated GFR POC Glucose 218 H 208 H 132 H Random Glucose Calcium 05/28/18 05/28/18 05/28/18 04:27 04:27 07:55 WBC 9.6 RBC 3.74 L Hgb 8.3 L Hct 27.6 L MCV 73.7 L MCH 22.2 L MCHC 30.1 L RDW 20.6 H Plt Count 423 MPV 6.8 L Neut % (Auto) 63.3 Lymph % (Auto) 27.2 [place] % (Auto) 8.2 H Eos % (Auto) 1.0 Baso % (Auto) 0.3 Neut # (Auto) 6.1 Lymph # (Auto) 2.6 [place] # (Auto) 0.8 Eos # (Auto) 0.1 Baso # (Auto) 0.0 WBC Differential . Differential Comment Auto diff final Sodium 143 Potassium 3.7 Chloride 107 Carbon Dioxide 26.9 Anion Gap 9 BUN 19 H Creatinine 0.99 Estimated GFR 76 L POC Glucose 98 Random Glucose 102 Calcium 8.4 L 05/28/18 11:31 WBC RBC Hgb Hct MCV MCH MCHC RDW Plt Count MPV Neut % (Auto) Lymph % (Auto) [place] % (Auto) Eos % (Auto) Baso % (Auto) Neut # (Auto) Lymph # (Auto) [place] # (Auto) Eos # (Auto) Baso # (Auto) WBC Differential Differential Comment Sodium Potassium Chloride Carbon Dioxide Anion Gap BUN Creatinine Estimated GFR POC Glucose 143 H Random Glucose Calcium Assessment and Plan - Plan RESPIRATORY FAILURE COPD RONAN PLAN O2 NEEDED BRONCHODILATOR THERAPY
[2018-05-28] MEDS: Polyethylene Glycol 3350 17 GM Packet PO SCH (15:25)
[2018-05-29] MEDS: Insulin NovoLOG Aspart Correctional Sugar Inj SQ SCH ×4 (03:37→17:29)
[2018-05-29 05:19] LABS: Hematocrit 27.6 % (39.0-51.0); Hemoglobin 8.5 gm/dL (13.0-17.0); Mean Corpuscular Hemoglobin 22.5 pg (27.0-34.0); Mean Platelet Volume 6.6 fL (7.0-11.0); Platelet Count 407 th/mm3 (150-450); Red Blood Count 3.78 mil/mm3 (4.50-5.90); Red Cell Distribution Width 20.8 % (11.6-17.2); White Blood Count 10.2 th/mm3 (4.0-11.0)
[2018-05-29 05:47] LABS: Calcium 8.4 mg/dL (8.5-10.1); Carbon Dioxide 27.4 meq/L (21.0-32.0); Potassium 3.8 meq/L (3.5-5.1)
[2018-05-29 05:51] LABS: Mean Corpuscular HGB Conc 30.8 % (32.0-36.0)
[2018-05-29] MEDS: Senna/Docusate Sodium 8.6/50 MG Tablet PO SCH (08:54)
[2018-05-29] MEDS: Metoprolol Tartrate 50 MG Tablet PO SCH (08:54)
[2018-05-29] MEDS: Duloxetine 60 MG DR Capsule PO SCH (08:54)
[2018-05-29] MEDS: Amiodarone 200 MG Tablet PO SCH (08:55)
[2018-05-29] MEDS: Glimepiride 2 MG Tablet PO SCH (08:55)
[2018-05-29] MEDS: Ferrous Sulfate 325 MG Tablet PO SCH (08:55)
[2018-05-29] MEDS: predniSONE 20 MG Tablet PO SCH (08:55)
[2018-05-29] MEDS: clonazePAM 0.5 MG Tablet PO SCH (08:56)
[2018-05-29] MEDS: Lidocaine 5% Patch T-DERMAL SCH (08:58)
[2018-05-29] MEDS: Polyethylene Glycol 3350 17 GM Packet PO SCH (09:23)
[2018-05-29] MEDS ORDERED: PEG 3350/E-Lyte Soln 4000 ML Bottle PO ONE (10:15)
[2018-05-29] MEDS: Budesonide-Formoterol 160/4.5 MCG 6 GM Inhaler INH SCH (10:17)
--- NOTE | 2018-05-29 10:42 | P.PNIM ---
Subjective Interval history: Got a call from patient's charge nurse in regards to patient being very upset saying that he never refused any medication and that he told the GI doctor Dr. Cohen last night that he is willing to do the colonoscopy tonight. I went to see patient with his charge nurse Rashmi and the nurse in training tyree were also in the room. Patient told his nurse that he did not want her present and asked for different nurse. I spoke to patient in regards her conversation last night in regards that he did decline aspirin and Plavix therapy and that he was aware that this could cause an ND. Patient continued to say that he did not declined and also stated he did not decline a colonoscopy at that time, but at the same time he contradicting himself. His who is in the hospital call during the interview and I spoke to her in regards to the issue. Patient stated that he will get a colonoscopy done tonight if possible and will restart his medication as directed. I spoke to GI FAHAD Sydnie in regards to this and to let Dr. Macias team know that this is a priority and that patient had a recent stent placement in December and he needs to be back on his medication to prevent an ND from happening. Patient was in agreement with management and also his was in agreement. His stated to me that patient is upset because she is in the hospital and he probably does not realize this. I later went back in and saw patient because he was asking to restart Lasix. I told patient why prior provider stop Lasix but I will restart his Lasix since I do not see any contraindication at the moment. Patient then asked me again about the colonoscopy and stated that he cannot be prepped because he needs to see his . I told patient that we had an extensive conversation earlier that he agreed to get the colonoscopy as soon as tonight if GI was able to perform procedure tonight. His was also in agreement with the plan and that this needs to be done LYNN so we can restart dual antiplatelet therapy to prevent thrombosis of the stent which can result in an ND. Patient then asked me a question "then how can I see my after the procedure if I'm going to the restroom all the time." I reminded patient of our prior conversation and stated that this is urgent that we cannot delay any care and that he is high risk of having an ND. Patient then complained about using the bedside commode and wanted to use the bathroom. I told him that I would speak to the charge nurse but the reason why bedside commode was recommended is because his syncopal episode and increased risk of falls. Physical Exam Vital signs: Vital Signs 05/28/18 12:00 05/28/18 16:00 05/28/18 19:12 Temperature 97.8 F 98 F Pulse Rate 58 L 77 Respiratory Rate 18 20 18 Blood Pressure 132/60 159/70 H Pulse Oximetry 98 100 05/28/18 20:00 05/29/18 00:00 05/29/18 01:27 Temperature 97.7 F 97.3 F L Pulse Rate 71 58 L Respiratory Rate 17 17 18 Blood Pressure 146/64 H 116/56 L Pulse Oximetry 98 97 05/29/18 02:03 05/29/18 04:00 Temperature 97.3 F L Pulse Rate 87 66 Respiratory Rate 18 Blood Pressure 159/73 H Pulse Oximetry 96 Intake & Output 05/28/18 05/29/18 05/29/18 18:59 06:59 18:59 Output Total 900 / 900 340 / 340 Balance -900 / -900 -340 / -340 Output: Urine 900 / 900 340 / 340 Other: # Voids 1 Date of Last Bowel Movement 05/27/18 05/27/18 - Constitutional no acute distress - Routine Respiratory Exam Present: CTA bilaterally - Routine Cardiovascular Exam Present: RRR, S1, S2 Comments: No rub murmur gallop. - Routine Abdominal Exam Present: soft, normoactive bowel sounds Comments: no TTP - Routine Extremities Exam Comments: negative pitting edema but patient feels they are swollen - Routine Neurological Exam Present: alert, oriented X3 Results - Labs CBC & Chem 7: 05/29/18 04:14 05/29/18 01:41 Laboratory Results - last 24 hr 05/28/18 05/28/18 05/28/18 11:31 16:58 19:55 WBC RBC Hgb Hct MCV MCH MCHC RDW Plt Count MPV Sodium Potassium Chloride Carbon Dioxide Anion Gap BUN Creatinine Estimated GFR POC Glucose 143 H 231 H 221 H Random Glucose Calcium 05/29/18 05/29/18 05/29/18 01:41 03:36 04:14 WBC 10.2 RBC 3.78 L Hgb 8.5 L Hct 27.6 L MCV 73.0 L MCH 22.5 L MCHC 30.8 L RDW 20.8 H Plt Count 407 MPV 6.6 L Sodium 143 Potassium 3.8 Chloride 106 Carbon Dioxide 27.4 Anion Gap 10 BUN 13 Creatinine 1.05 Estimated GFR 71 L POC Glucose 97 Random Glucose 82 Calcium 8.4 L 05/29/18 07:22 WBC RBC Hgb Hct MCV MCH MCHC RDW Plt Count MPV Sodium Potassium Chloride Carbon Dioxide Anion Gap BUN Creatinine Estimated GFR POC Glucose 115 H Random Glucose Calcium Assessment and Plan - Assessment (1) Generalized weakness Code(s): R53.1 - Weakness Status: Acute - Plan (1) Generalized weakness Code(s): R53.1 - Weakness Status: Acute - Plan 67-year-old male with a past medical history significant for atrial fibrillation anticoagulated on Eliquis, diabetes mellitus, coronary artery disease status post ND, CHF (last ejection fraction 55%), COPD and a history of breast, colon and prostate cancers presents to ED on 05/12 due to syncopal episode. Symptomatic anemia/syncope/lower GI bleed -Hemoccult positive ED with history of black, tarry stools; s/p 1 unit of PRBCs transfused -Status post EGD with snare polypectomy and colonoscopy with snare polypectomy and fulguration of AVM's 05/14. Procedure revealed gastric polyps, cecal AVM's, colon polyp and colon diverticulosis -Lower abdominal pain, GI ordered CT of abd/pelvis: Eventration of right hemidiaphragm, moderate gaseous distention of hepatic flexure in the right upper quadrant with component sitting anterior to the liver, previous transpedicular lumbar fixation, otherwise negative. -KUB 05/16 showed no disproportion needed dilated loops of small or large bowel, limited quality exam. s/p Relistor by GI -Patient developed bloody diarrhea on 05/26. He continues to be symptomatic but is improving. C. difficile is negative. GI reconsulted. GI stated that will monitor patient off of anticoagulation and Plavix to determine if patient needs to have a repeat colonoscopy. Hemoglobin did drop today from 9 to 8.3. Continue to monitor H&H. Syncope. Recurrent presyncopal/syncopal episodes -Cardiology consulted, and evaluated patient. Placed consult once again for reevaluation of patient due to ongoing syncopal episodes as well as 's request, greatly appreciate assistance and input. -Loop recorder interrogated, [employer] report noted sinus rhythm with PACs ( phone number [phone]) -2D echo showing EF 5560%, normal LV size, mild to moderate concentric left ventricular hypertrophy, no definitive wall motion abnormalities, moderate mitral annular calcification, mild aortic valve stenosis present -Bilateral carotid ultrasound with less than 50% stenosis -Bilateral upper and lower extremity ultrasounds negative for DVT -EEG with mild encephalopathy and sleep -Neurology Dr. Nichols evaluated patient, on low-dose Keppra for possible seizure activity with no improvement. -CT of C-spine and T- spine to due to possible clonus. - CT- T spine: Negative, CT of T-spine: Advanced degenerative changes at the endplates and facet joints, similar to recent CT. -Orthostatic BP's + on 05/19 (supine 162/68, sitting 140/63, standing 130/63) had a drop of 25mmHg w/ standing on systolic pressure. Repeat orthostatic BP on 05/21 was normal. -Blood pressure medications adjusted. -Discussed with Dr. Nichols 05/20, recommendations to discontinue Keppra, start low -dose Klonopin twice daily. Appreciate additional neurology evaluation. Neurology has cleared patient for discharge to rehab. Hyperglycemia/diabetes mellitus -On cardiac and diabetic diet, last A1c 8.8 on 01/10/18 -NovoLog 50 units at ADM, NovoLog 20 units at 8 PM (as requested per ) Novolin N 70units in a.m and 75 units HS, Accu-Cheks, sliding scale high coverage. Blood sugar control has been difficult - and patient are very resistant to any adjustments in dosing. -Continue 2 mg of glimepiride -BS improved but still somewhat labile due to steroid use -weaning steroid. Hypokalemia Hyponatremia, mild - add daily replacement. Monitor labs -Patient denies long-term chronic steroid use but does frequently get a Medrol Dosepak for COPD exacerbation -05/26 -Labs ordered to rule out aldosteronism. Consider starting spironolactone. still pending results. Atrial fibrillation, chronic HTN, chronic -Continue amiodarone/metoprolol (TSH ordered - WNL) -Eliquis resumed, discussed with GI previously. 05/27 - stopped by GI due to blood in stool CHF/CAD Status post ND -Continue beta-gunner, diuretics (stopped due to persistent hypokalemia), as recommended by cardiology services -Continue home medications - BP initially on normal/low side, losartan and Zaroxolyn discontinued; restarted losartan 05/23 - BP was increased. Left shoulder rotator cuff injury Right finger pain - Right hand x-ray negative for fractures. -X-ray reviewed, no acute abnormality, mild osteoarthritis at the acromioclavicular joint, continue Lidoderm patch. Sleep apnea-attending home CPAP machine -Patient to use home machine. JUNIOR; improved -Monitor renal function intermittently. Persistent leukocytosis, chronic -Patient with a history of leukocytosis dating back to 2017 upon review of EMR -Possibly related to steroid use; currently attempting to wean steroid use -Treated with ceftriaxone and consulted ID consulted; Blood cultures collected on 05/12 with no growth to date; Patient afebrile with no suspected source of infection. Stopped ceftriaxone 05/26. - spoke with patient's pulmonary office. Recommends discharging and following up with outpatient clinic for ongoing antibiotic and steroid infusions. to follow up with patient. -05/22 = required 4 L O2 while with physical therapy to maintain sats; walk test ordered. Pulmonary reconsulted-VQ scan ordered 05/25 -results indicated possible pulmonary embolism however this is not thought to be acute by Dr. Avendaño. No further evaluation indicated. RLS -Continue home dose Requip DVT prophylaxis-Karrie
[2018-05-29] MEDS ORDERED: Metoprolol Tartrate 25 MG Tablet PO ONE (12:10)
[2018-05-29] MEDS ORDERED: Chlorhexidine Gluconate 2% 1 Pack (2 Cloths) TOPICAL ONE (12:10)
[2018-05-29] MEDS: Furosemide 20 MG Tablet PO SCH (12:39)
--- NOTE | 2018-05-29 12:43 | P.PN ---
Subjective Interval history: Will go for EGD, Colonoscopy. Has some cough but no SOB off O2. Used CPAP at HS Physical Exam Vital signs: Vital Signs 05/28/18 16:00 05/28/18 19:12 05/28/18 20:00 Temperature 98 F 97.7 F Pulse Rate 77 71 Respiratory Rate 20 18 17 Blood Pressure 159/70 H 146/64 H Pulse Oximetry 100 98 05/29/18 00:00 05/29/18 01:27 05/29/18 02:03 Temperature 97.3 F L Pulse Rate 58 L 87 Respiratory Rate 17 18 Blood Pressure 116/56 L Pulse Oximetry 97 05/29/18 04:00 Temperature 97.3 F L Pulse Rate 66 Respiratory Rate 18 Blood Pressure 159/73 H Pulse Oximetry 96 Intake & Output 05/28/18 05/29/18 05/29/18 18:59 06:59 18:59 Output Total 900 / 900 340 / 340 Balance -900 / -900 -340 / -340 Output: Urine 900 / 900 340 / 340 Other: # Voids 1 Date of Last Bowel Movement 05/27/18 05/27/18 GENERAL: Obese elderly W/M alert SKIN: Warm and dry. HEAD: Atraumatic. Normocephalic. EYES: Pupils equal and round. No scleral icterus. No injection or drainage. ENT: No nasal bleeding or discharge. NECK: Trachea midline. No JVD. CARDIOVASCULAR: Regular rate and rhythm. RESPIRATORY: No accessory muscle use. Distant breath sounds. equal bilaterally. GASTROINTESTINAL: Abdomen soft, non-tender, nondistended. Hepatic and splenic margins not palpable. MUSCULOSKELETAL: Extremities without clubbing, cyanosis, or edema. No obvious deformities. NEUROLOGICAL: Awake and alert. No obvious cranial nerve deficits. Motor grossly within normal limits. Five out of 5 muscle strength in the arms and legs. Normal speech. PSYCHIATRIC: Appropriate mood and affect. Narrative: GENERAL: Well-nourished, obese, well-developed adult male in no obvious distress. SKIN: Warm and dry. HEAD: Atraumatic. Normocephalic. CARDIOVASCULAR: Regular rate and rhythm. RESPIRATORY: No accessory muscle use. Clear to auscultation. Breath sounds equal bilaterally. GASTROINTESTINAL: Abdomen soft, non-tender, non-distended. No guarding. positive bowel sounds. MUSCULOSKELETAL: Extremities without clubbing, cyanosis, or edema. No obvious deformities. Limited range of motion bilateral upper extremities with 4/5 strength equal bilateral. NEUROLOGICAL: Awake and alert. No obvious cranial nerve deficits. Motor grossly within normal limits. Normal speech. Results - Labs CBC & Chem 7: 05/29/18 04:14 05/29/18 01:41 Laboratory Results - last 24 hr 05/28/18 05/28/18 05/29/18 16:58 19:55 01:41 WBC RBC Hgb Hct MCV MCH MCHC RDW Plt Count MPV Sodium 143 Potassium 3.8 Chloride 106 Carbon Dioxide 27.4 Anion Gap 10 BUN 13 Creatinine 1.05 Estimated GFR 71 L POC Glucose 231 H 221 H Random Glucose 82 Calcium 8.4 L 05/29/18 05/29/18 05/29/18 03:36 04:14 07:22 WBC 10.2 RBC 3.78 L Hgb 8.5 L Hct 27.6 L MCV 73.0 L MCH 22.5 L MCHC 30.8 L RDW 20.8 H Plt Count 407 MPV 6.6 L Sodium Potassium Chloride Carbon Dioxide Anion Gap BUN Creatinine Estimated GFR POC Glucose 97 115 H Random Glucose Calcium 05/29/18 11:28 WBC RBC Hgb Hct MCV MCH MCHC RDW Plt Count MPV Sodium Potassium Chloride Carbon Dioxide Anion Gap BUN Creatinine Estimated GFR POC Glucose 180 H Random Glucose Calcium Assessment and Plan - Assessment (1) RONAN (obstructive sleep apnea) Code(s): G47.33 - Obstructive sleep apnea (adult) (pediatric) Status: Acute (2) COPD (chronic obstructive pulmonary disease) with acute bronchitis Code(s): J44.0 - Chronic obstructive pulmonary disease with acute lower respiratory infection; J20.9 - Acute bronchitis, unspecified Status: Acute (3) GI bleed Code(s): K92.2 - Gastrointestinal hemorrhage, unspecified Status: Acute (4) Anemia Code(s): D64.9 - Anemia, unspecified Status: Acute (5) Syncope Code(s): R55 - Syncope and collapse Status: Acute (6) Generalized weakness Code(s): R53.1 - Weakness Status: Acute (7) CAD (coronary artery disease) Code(s): I25.10 - Atherosclerotic heart disease of [place] coronary artery without angina pectoris Status: Chronic (8) Paroxysmal A-fib Code(s): I48.0 - Paroxysmal atrial fibrillation Status: Chronic (9) Hypertension Code(s): I10 - Essential (primary) hypertension Status: Chronic (10) Obesity Code(s): E66.9 - Obesity, unspecified Status: Chronic (11) Gastrointestinal bleeding Code(s): K92.2 - Gastrointestinal hemorrhage, unspecified Status: Acute - Plan 1. CBC,BMP in am 2. Prednisone 10 mg daily and stop in 3 days 3. O2 2 L N/C while walking and CPAP at HS 4. Duoneb nebs qid. 5. Colonoscopy /EGD for today 6. IS q2h. 7. Pt will use His own CPAP machine at HS (3) GI bleed Qualifiers: GI bleed type/associated pathology: unspecified gastrointestinal hemorrhage type Qualified Code(s): K92.2 - Gastrointestinal hemorrhage, unspecified (4) Anemia Qualifiers: Anemia type: unspecified type Qualified Code(s): D64.9 - Anemia, unspecified (5) Syncope Qualifiers: Syncope type: unspecified Qualified Code(s): R55 - Syncope and collapse
[2018-05-29] MEDS ORDERED: Sodium Chlor 0.9% Inj 500 ML IV.SIG SCH (13:00)
--- NOTE | 2018-05-29 18:15 | P.PNGI ---
Subjective Interval history: Patient is sitting up in the bed, tolerate GoLYTELY prep slowly. He thinks he may can drink it with Sprite. No nausea vomiting Patient unaware if he is having any rectal bleeding or not but does show general trend down of hemoglobin. 8.3 and 8.5 last 2 hemoglobins reviewed <Sydnie Dorado - Last Filed: 05/29/18 18:10> Physical Exam Vital signs: Vital Signs 05/28/18 19:12 05/28/18 20:00 05/29/18 00:00 Temperature 97.7 F 97.3 F L Pulse Rate 71 58 L Respiratory Rate 18 17 17 Blood Pressure 146/64 H 116/56 L Pulse Oximetry 98 97 05/29/18 01:27 05/29/18 02:03 05/29/18 04:00 Temperature 97.3 F L Pulse Rate 87 66 Respiratory Rate 18 18 Blood Pressure 159/73 H Pulse Oximetry 96 05/29/18 08:00 05/29/18 12:00 Temperature 97.7 F 97.6 F Pulse Rate 64 66 Respiratory Rate 18 18 Blood Pressure 199/84 H 140/63 Pulse Oximetry 99 97 Intake & Output 05/28/18 05/29/18 05/29/18 18:59 06:59 18:59 Output Total 900 / 900 340 / 340 Balance -900 / -900 -340 / -340 Output: Urine 900 / 900 340 / 340 Other: # Voids 1 Date of Last Bowel Movement 05/27/18 05/27/18 05/27/18 - Constitutional morbidly obese - Routine HEENT Exam Head: Present: normocephalic ENT: Present: mucous membranes moist - Routine Respiratory Exam Present: accessory muscle use (No obvious shortness of breath at rest) - Routine Abdominal Exam Present: distended (Mild round, obese, bowel sounds active) <Sydnie Dorado - Last Filed: 05/29/18 18:10> Vital signs: Vital Signs 05/29/18 08:00 05/29/18 12:00 05/29/18 16:00 Temperature 97.7 F 97.6 F 97.7 F Pulse Rate 64 66 68 Respiratory Rate 18 18 20 Blood Pressure 199/84 H 140/63 145/67 H Pulse Oximetry 99 97 97 05/29/18 20:00 05/30/18 00:00 05/30/18 04:00 Temperature 97.4 F L 97.8 F 97.8 F Pulse Rate 66 65 52 L Respiratory Rate 18 18 17 Blood Pressure 134/60 180/80 H 141/65 H Pulse Oximetry 99 99 96 Intake & Output 05/29/18 05/30/18 05/30/18 18:59 06:59 18:59 Output Total 940 / 940 Balance -940 / -940 Output: Urine 940 / 940 Other: # Voids 1 Date of Last Bowel Movement 05/29/18 # Bowel Movements 1 <Eugenia Cohen A - Last Filed: 05/30/18 07:25> Results - Labs CBC & Chem 7: 05/29/18 04:14 05/29/18 01:41 Laboratory Results - last 24 hr 05/28/18 05/29/18 05/29/18 19:55 01:41 03:36 WBC RBC Hgb Hct MCV MCH MCHC RDW Plt Count MPV Sodium 143 Potassium 3.8 Chloride 106 Carbon Dioxide 27.4 Anion Gap 10 BUN 13 Creatinine 1.05 Estimated GFR 71 L POC Glucose 221 H 97 Random Glucose 82 Calcium 8.4 L 05/29/18 05/29/18 05/29/18 04:14 07:22 11:28 WBC 10.2 RBC 3.78 L Hgb 8.5 L Hct 27.6 L MCV 73.0 L MCH 22.5 L MCHC 30.8 L RDW 20.8 H Plt Count 407 MPV 6.6 L Sodium Potassium Chloride Carbon Dioxide Anion Gap BUN Creatinine Estimated GFR POC Glucose 115 H 180 H Random Glucose Calcium 05/29/18 17:00 WBC RBC Hgb Hct MCV MCH MCHC RDW Plt Count MPV Sodium Potassium Chloride Carbon Dioxide Anion Gap BUN Creatinine Estimated GFR POC Glucose 232 H Random Glucose Calcium <Sydnie Dorado M - Last Filed: 05/29/18 18:10> - Labs CBC & Chem 7: 05/29/18 04:14 05/29/18 01:41 Laboratory Results - last 24 hr 05/29/18 05/29/18 05/29/18 07:22 11:28 17:00 POC Glucose 115 H 180 H 232 H 05/29/18 23:11 POC Glucose 163 H <Eugenia Cohen A - Last Filed: 05/30/18 07:25> Assessment and Plan (1) GI bleed Status: Acute Code(s): K92.2 - Gastrointestinal hemorrhage, unspecified (2) Anemia Status: Acute Code(s): D64.9 - Anemia, unspecified - Plan 67-year-old overweight male comes into the hospital on 05/12/2018 with symptomatic anemia, melena stools, GI bleed, and falls, syncopal episodes 3 at home over the past week. Current symptoms have been going on off and on for 2 weeks, aggregating symptoms are probably related to Eliquis and Plavix dual anticoagulation for his atrial fib. According to the record patient had positive Hemoccult in the ER setting. Hemoglobin on admission was 7.8 and decreased to 7.4. Patient received 1 unit packed RBCs, PT/INR 1. EGD colonoscopy approximately [address] Harper possible history of polyps and patient notes previous colon resection but unknown timing. Patient denies history of colon cancer but states polyp removed? Eliquis and Plavix are on hold for 05/13/2018. Gastroenterology has been consulted to assist with his care and evaluate his symptoms. EGD colonoscopy has been discussed with patient. When entered the room patient had been given GoLYTELY per hospitalist on admission to drink throughout the evening but patient denies any bowel movement he has drank approximately 60% of the GoLYTELY, but states he will not drink anymore. 05/15/2018 patient's currently resting in the bed awake and alert with some mild anxiety. 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 Results were discussed again with patient and the findings and recommendations. Capsule endoscopy if patient continues to have problems with anemia and unstable hemoglobin patient states he has already had this procedure before. Repeat colonoscopy in one year. Current hemoglobin is 8.5 mildly decreased and WBC count 17.3. Patient continues to complain today of right lower quadrant and right-sided abdominal pain which he states started post colonoscopy yesterday he states the pain does wax and wane but does have a sharp consistency at times. Patient states no bowel movement since colonoscopy prep which is only been 24-30 hours. Family member on the phone discussed again findings of EGD/colonoscopy in the need to have patient evaluated for his Eliquis and Plavix related to his GI bleeds and findings. Patient is high risk for bleeds especially with dual anticoagulant therapy. CT scan without contrast ordered for today to evaluate new abdominal pain and to rule out any new issues. According to the record patient is back on his Plavix dose today. 05/16/18 Pt is resting in bed, still with RLQ pain, had some nausea and vomiting last night, no bleeding reported. Endorses constipation. He had multiple syncopal episodes yesterday and currently being worked up for this, cardiology, pulmonology and neurology consulted hgb is improving. Abdomen/Pelvis CT 05/15/18 1. Eventration of the right hemidiaphragm 2. Moderate gaseous distention of the hepatic flexure in the right upper quadrant with a component of this sitting anterior to the liver 3. Gallbladder surgically absent 4. Previous transpedicular lumbar fixation. 05/27/2018, GI was reconsulted because patient had some red blood noted and liquid diarrhea stools over the past 24 hours. Initial stool was large diarrhea with obvious red blood, second stool was a smaller amount but still noticeable red blood. Patient hemoglobin is currently 9, PT/INR 1, WBC count normalized at 9. C. difficile negative. 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 Patient was placed back on Plavix and Eliquis due to his cardiovascular disease and coronary artery disease. Dual management with anticoagulation makes patient very high risk for further GI bleeds. Need further discussion and reconsult with cardiology for holding blood thinners and any further GI procedures that need to be done. Currently we will observe for any further bleeding. Discussed with patient and his . According to staff patient is planning [place] [facility] very soon. GI can follow but understand patient may need procedure for GI bleed in the near future. ' 05/28/2018 current hemoglobin 8.3, mild decrease from 9. over the past 24 hours. Patient is day 2 hold off Plavix and Eliquis. No BM today but patient states still having rectal bleeding but then will state he does not know. Discussion with cardiology today, Dr. Lopez, who also states patient is high risk without anticoagulant on board. Recommendations include Plavix and aspirin or Plavix and Eliquis. Patient appears to be asymptomatic this a.m. discussed with patient bowel regimen and no straining. Patient is also on iron supplements which may discolor the stool. Discussed with patient again evaluation of colonoscopy for any further bleeding since patient's hemoglobin has declined. Patient is very worried and upset right now secondary to his is currently in the emergency room with possible NM. Went with Dr. Guzmán in the room to discuss patient's pros and cons with not restarting his blood thinner for 24 hours and hold off on any further procedures. He currently is requesting to hold all blood thinners and procedures for 24 hours. 05/29/2018 initially attempted to give bowel prep this a.m. for patient to have colonoscopy today but patient was unable to tolerate prep. Patient initially had put any testing on hold last p.m. but now has decided that he will resume GI procedures, currently anticoagulants on hold for GI test. Plan now is for EGD colonoscopy in a.m., will continue to monitor hemoglobin which seems to be leveled at 8.3 and 8.5. Encourage patient to monitor stools for any bright red rectal bleeding, and no straining Plan Bowel regimen, add MiraLAX daily Consent for EGD colonoscopy in the a.m. N.p.o. at midnight GoLYTELY Clear liquids today PPI Zofran Monitor labs and transfuse as necessary, supportive care further recommendations to follow Patient was seen per myself and Dr. Cohen, note was written on his behalf <Sydnie Dorado M - Last Filed: 05/29/18 18:10> (1) GI bleed Status: Acute Code(s): K92.2 - Gastrointestinal hemorrhage, unspecified (2) Anemia Status: Acute Code(s): D64.9 - Anemia, unspecified - Attending Attestation Agreed to have the procedures during this admission. Will start bowel prep. for EGD and Colonoscopy. Further recommendations to follow. <Eugenia Cohen A - Last Filed: 05/30/18 07:25> <Sydnie Dorado M - Last Filed: 05/29/18 18:10> (1) GI bleed Qualifiers: GI bleed type/associated pathology: unspecified gastrointestinal hemorrhage type Qualified Code(s): K92.2 - Gastrointestinal hemorrhage, unspecified (2) Anemia Qualifiers: Anemia type: unspecified type Qualified Code(s): D64.9 - Anemia, unspecified <Eugenia Cohen - Last Filed: 05/30/18 07:25> (1) GI bleed Qualifiers: GI bleed type/associated pathology: unspecified gastrointestinal hemorrhage type Qualified Code(s): K92.2 - Gastrointestinal hemorrhage, unspecified (2) Anemia Qualifiers: Anemia type: unspecified type Qualified Code(s): D64.9 - Anemia, unspecified
[2018-05-30] MEDS: Ferrous Sulfate 325 MG Tablet PO SCH ×3 (08:10→20:49)
[2018-05-30] MEDS: Furosemide 20 MG Tablet PO SCH (08:11)
[2018-05-30] MEDS: Duloxetine 60 MG DR Capsule PO SCH (08:11)
[2018-05-30] MEDS: Metoprolol Tartrate 50 MG Tablet PO SCH ×3 (08:11→20:50)
[2018-05-30] MEDS: clonazePAM 0.5 MG Tablet PO SCH ×3 (08:11→20:50)
[2018-05-30] MEDS: Lidocaine 5% Patch T-DERMAL SCH (08:11)
[2018-05-30] MEDS: predniSONE 20 MG Tablet PO SCH (08:11)
[2018-05-30] MEDS: Amiodarone 200 MG Tablet PO SCH (08:11)
[2018-05-30] MEDS: Senna/Docusate Sodium 8.6/50 MG Tablet PO SCH ×3 (08:12→20:56)
[2018-05-30] MEDS: Budesonide-Formoterol 160/4.5 MCG 6 GM Inhaler INH SCH ×3 (08:12→20:55)
[2018-05-30] MEDS: Insulin NovoLOG Aspart Correctional Sugar Inj SQ SCH ×7 (08:12→20:48)
[2018-05-30] MEDS ORDERED: Chlorhexidine Gluconate 2% 1 Pack (2 Cloths) TOPICAL ONE (11:20)
[2018-05-30] MEDS ORDERED: Lidocaine PF 1% Inj 5 ML Syringe INFILTRATN ONE (11:45)
[2018-05-30] MEDS: Polyethylene Glycol 3350 17 GM Packet PO SCH (12:13)
[2018-05-30] MEDS: Glimepiride 2 MG Tablet PO SCH (12:13)
--- NOTE | 2018-05-30 12:22 | GIPROC ---
[facility] [address] [facility]. [facility], [address] EGD PROCEDURE REPORT EXAM DATE: 05/30/2018 PATIENT NAME: Irineo Fay MR #: [id number] BIRTHDATE: 1950 ATTENDING: Eugenia Cohen MD ORDER #: [id number] MACHINE STRAW HAT PRESSER: Manuel Gutierrez and Marion Chavez STATUS: inpatient INDICATIONS: The patient is a 67 yr old male here for an EGD due to hematochezia PROCEDURE PERFORMED: EGD w/ biopsy MEDICATIONS: Per Anesthesia and None. TOPICAL ANESTHETIC: none CONSENT: The patient understands the risks and benefits of the procedure and understands that these risks include, but are not limited to: sedation, allergic reaction, infection, perforation and/or bleeding. Alternative means of evaluation and treatment include, among others: physical exam, x-rays, and/or surgical intervention. The patient elects to proceed with this endoscopic procedure. medical equipment was checked for proper function. Hand hygiene and appropriate measures for infection prevention was taken. After the risks, benefits and alternatives of the procedure were thoroughly explained, Informed consent was verified, confirmed and timeout was successfully executed by the treatment team. The patient was anesthetized with topical anesthesia and the Pentax [id number] endoscope was introduced through the mouth and advanced to the second portion of the duodenum. Retroflexed views revealed no abnormalities The gastroscope was then slowly withdrawn and removed. ESOPHAGUS: There was LA Class A esophagitis noted. STOMACH: There was mild gastritis in the gastric antrum. A small ulcerated sessile polyp was found in the gastric antrum. Multiple biopsies was performed using cold forceps. Sample sent for histology. DUODENUM: The duodenal mucosa appeared normal in the duodenal bulb and 2nd part duodenum. ADVERSE EVENTS: There were no complications. IMPRESSIONS: 1. There was LA Class A esophagitis noted 2. There was mild gastritis in the gastric antrum 3. Small sessile polyp was found in the gastric antrum; multiple biopsies was performed 4. Normal duodenal mucosa in the duodenal bulb and 2nd part duodenum 5. Retroflexed views revealed no abnormalities RECOMMENDATIONS: 1. Await biopsy results. Biopsy results will not be ready for 7-10 days. If you don't hear from us in two weeks, call our office for biopsy results. 2. Continue PPI PATIENT CONDITION: stable DISPOSITION: Observation REPEAT EXAM: NONE Eugenia Cohen MD eSigned: Eugenia Cohen MD 05/30/2018 12:22 PM cc: PATIENT NAME: Irineo Fay MR#: [id number]
--- NOTE | 2018-05-30 12:25 | GIPROC ---
[facility] [address] [facility]. [facility], [address] COLONOSCOPY PROCEDURE REPORT EXAM DATE: 05/30/2018 PATIENT NAME: Irineo Fay MR #: [id number] BIRTHDATE: 1950 ENDOSCOPIST: Eugenia Cohen MD ORDER #: [id number] PASSENGER TIRE INSPECTOR: Manuel Gutierrez and Marion Chavez STATUS: inpatient INDICATIONS: The patient is a 67 yr old male here for a colonoscopy due to hematochezia PROCEDURE PERFORMED: Colonoscopy, diagnostic MEDICATIONS: Per Anesthesia and None. PREP QUALITY: fair PREP TYPE:Magnesium Citrate ESTIMATED BLOOD LOSS: None CONSENT: The patient understands the risks and benefits of the procedure and understands that these risks include, but are not limited to: sedation, allergic reaction, infection, perforation and/or bleeding. Alternative means of evaluation and treatment include, among others: physical exam, x-rays, and/or surgical intervention. The patient elects to proceed with this endoscopic procedure. medical equipment was checked for proper function. Hand hygiene and appropriate measures for infection prevention was taken. After the risks, benefits and alternatives of the procedure were thoroughly explained, Informed consent was verified, confirmed and timeout was successfully executed by the treatment team. A digital exam revealed internal hemorrhoids The New ItemEG-[id number] (Std Gastro) endoscope was introduced through the anus and advanced to the cecum, which was identified by both the appendix and ileocecal valve. The instrument was then slowly withdrawn as the colon was fully examined. COLON FINDINGS: There was evidence of a prior end-to-end colo-colonic surgical anastomosis in the rectosigmoid colon. Diverticulum was found throughout the entire examined colon. The opening was large. Retroflexed views revealed internal hemorrhoids and Retroflexed views revealed medium internal hemorrhoids The scope was then completely withdrawn from the patient and the procedure terminated. PROCEDURE WITHDRAWAL TIME:7minutes ADVERSE EVENTS: There were no complications. IMPRESSIONS: 1. There was evidence of a prior colo-colonic surgical anastomosis in the rectosigmoid colon 2. Diverticulum throughout the entire examined colon 3. Retroflexed views revealed internal hemorrhoids 4. Retroflexed views revealed medium internal hemorrhoids 5. Revealed internal hemorrhoids RECOMMENDATIONS: 1. High fiber diet 2. No seeds, nuts and popcorn in diet RECALL: Return 5 years Colonoscopy Eugenia Cohen MD eSigned: Eugenia Cohen MD 05/30/2018 12:25 PM cc: PATIENT NAME: Irineo Fay MR#: [id number]
--- NOTE | 2018-05-30 14:54 | P.PNIM ---
Subjective Interval history: Follow up GI bleed. Patient is frustrated at this time because he is not getting any answers. He states he has tremors when he walks and is requesting to see another neurologist. Results of egd and colonoscopy were reviewed with the patient. High fiber diet was also discussed. Patient denies any chest pain, sob, fever or chills. Physical Exam Vital signs: Vital Signs 05/29/18 16:00 05/29/18 20:00 05/30/18 00:00 Temperature 97.7 F 97.4 F L 97.8 F Pulse Rate 68 66 65 Respiratory Rate 20 18 18 Blood Pressure 145/67 H 134/60 180/80 H Pulse Oximetry 97 99 99 05/30/18 04:00 05/30/18 05:00 05/30/18 08:00 Temperature 97.8 F 98.1 F Pulse Rate 52 L 50 L Respiratory Rate 17 18 17 Blood Pressure 141/65 H 169/71 H Pulse Oximetry 96 97 05/30/18 12:25 05/30/18 12:30 05/30/18 12:39 Temperature 97.4 F L 97.4 F L Pulse Rate 57 L 52 L 57 L Respiratory Rate 16 16 16 Blood Pressure 109/56 L 102/53 L 109/56 L Pulse Oximetry 93 L 94 L 93 L 05/30/18 12:45 05/30/18 12:50 05/30/18 12:55 Temperature 97.6 F Pulse Rate 54 L 55 L Respiratory Rate 16 16 Blood Pressure 103/55 L 100/56 L Pulse Oximetry 95 96 95 Intake & Output 05/29/18 05/30/18 05/30/18 18:59 06:59 18:59 Intake Total 300 / 300 Output Total 940 / 940 Balance -940 / -940 300 / 300 Intake: Anesthesia Amount 300 / 300 Output: Urine 940 / 940 Other: # Voids 1 Date of Last Bowel Movement 05/29/18 05/27/18 # Bowel Movements 1 Narrative: GENERAL: Well-nourished, obese, well-developed adult male in no obvious distress. SKIN: Warm and dry. HEAD: Atraumatic. Normocephalic. CARDIOVASCULAR: Regular rate and rhythm. RESPIRATORY: No accessory muscle use. Clear to auscultation. Breath sounds equal bilaterally. GASTROINTESTINAL: Abdomen soft, Round, non-tender, non-distended. No guarding. positive bowel sounds. MUSCULOSKELETAL: Extremities without clubbing, cyanosis, or edema. No obvious deformities. Limited range of motion bilateral upper extremities with 4/5 strength equal bilateral. NEUROLOGICAL: Awake and alert. No obvious cranial nerve deficits. Motor grossly within normal limits. Normal speech. Results - Labs CBC & Chem 7: 05/29/18 04:14 05/29/18 01:41 Laboratory Results - last 24 hr 05/26/18 05/29/18 05/29/18 09:13 17:00 23:11 POC Glucose 232 H 163 H Aldosterone 17.0 05/30/18 05/30/18 05/30/18 08:05 12:31 13:26 POC Glucose 101 195 H 214 H Aldosterone Assessment and Plan - Assessment (1) Generalized weakness Code(s): R53.1 - Weakness Status: Acute - Plan 67-year-old male with a past medical history significant for atrial fibrillation anticoagulated on Eliquis, diabetes mellitus, coronary artery disease status post NH, CHF (last ejection fraction 55%), COPD and a history of breast, colon and prostate cancers presents to ED on 05/12 due to syncopal episode. Symptomatic anemia/syncope/lower GI bleed -Hemoccult positive ED with history of black, tarry stools; s/p 1 unit of PRBCs transfused -Status post EGD with snare polypectomy and colonoscopy with snare polypectomy and fulguration of AVM's 05/14. Procedure revealed gastric polyps, cecal AVM's, colon polyp and colon diverticulosis -Lower abdominal pain, GI ordered CT of abd/pelvis: Eventration of right hemidiaphragm, moderate gaseous distention of hepatic flexure in the right upper quadrant with component sitting anterior to the liver, previous transpedicular lumbar fixation, otherwise negative. -KUB 05/16 showed no disproportion needed dilated loops of small or large bowel, limited quality exam. s/p Relistor by GI -Colonoscopy negative, will resume ASA and Plavix, monitor H&H Syncope. Recurrent presyncopal/syncopal episodes -Cardiology consulted, and evaluated patient. Placed consult once again for reevaluation of patient due to ongoing syncopal episodes as well as 's request, greatly appreciate assistance and input. -Loop recorder interrogated, [employer] report noted sinus rhythm with PACs ( phone number [phone]) -2D echo showing EF 5560%, normal LV size, mild to moderate concentric left ventricular hypertrophy, no definitive wall motion abnormalities, moderate mitral annular calcification, mild aortic valve stenosis present -Bilateral carotid ultrasound with less than 50% stenosis -Bilateral upper and lower extremity ultrasounds negative for DVT -EEG with mild encephalopathy and sleep -Neurology Dr. Nichols evaluated patient, on low-dose Keppra for possible seizure activity with no improvement. -CT of C-spine and T- spine to due to possible clonus. - CT- T spine: Negative, CT of T-spine: Advanced degenerative changes at the endplates and facet joints, similar to recent CT. -Orthostatic BP's + on 05/19 (supine 162/68, sitting 140/63, standing 130/63) had a drop of 25mmHg w/ standing on systolic pressure. Repeat orthostatic BP on 05/21 was normal. -Blood pressure medications adjusted. -Discussed with Dr. Nichols 05/20, recommendations to discontinue Keppra, start low -dose Klonopin twice daily. Appreciate additional neurology evaluation. Neurology has cleared patient for discharge to rehab. -Reconsult Neurology per patient request for tremors -Repeat orthostatic BPs Hyperglycemia/diabetes mellitus -On cardiac and diabetic diet, last A1c 8.8 on 01/10/18 -NovoLog 50 units at ADM, NovoLog 20 units at 8 PM (as requested per ) Novolin N 70units in a.m and 75 units HS, Accu-Cheks, sliding scale high coverage. Blood sugar control has been difficult - and patient are very resistant to any adjustments in dosing. -Continue 2 mg of glimepiride -BS improved but still somewhat labile due to steroid use -weaning steroid. Hypokalemia, resolved Hyponatremia, mild - add daily replacement. Monitor labs -Patient denies long-term chronic steroid use but does frequently get a Medrol Dosepak for COPD exacerbation -05/26 -Labs ordered to rule out aldosteronism. Consider starting spironolactone. still pending results. Atrial fibrillation, chronic HTN, chronic -Continue amiodarone/metoprolol (TSH ordered - WNL) -Eliquis resumed due to negative colonoscopy, ok with GI CHF/CAD Status post NH -Continue beta-gunner, diuretics (stopped due to persistent hypokalemia), as recommended by cardiology services -Continue home medications - BP initially on normal/low side, losartan and Zaroxolyn discontinued; restarted losartan 05/23 - BP was increased. Left shoulder rotator cuff injury Right finger pain - Right hand x-ray negative for fractures. -X-ray reviewed, no acute abnormality, mild osteoarthritis at the acromioclavicular joint, continue Lidoderm patch. -Cont PT Sleep apnea-attending home CPAP machine -Patient to use home machine. JUNIOR; improved -Monitor renal function intermittently. Persistent leukocytosis, chronic -Patient with a history of leukocytosis dating back to 2016 upon review of EMR -Possibly related to steroid use; currently attempting to wean steroid use, decreased to 10mg for [address] Tapia -Treated with ceftriaxone and consulted ID consulted; Blood cultures collected on 05/12 with no growth to date; Patient afebrile with no suspected source of infection. Stopped ceftriaxone 05/26. - spoke with patient's pulmonary office. Recommends discharging and following up with outpatient clinic for ongoing antibiotic and steroid infusions. to follow up with patient. -05/22 = required 4 L O2 while with physical therapy to maintain sats; walk test ordered. Pulmonary reconsulted-VQ scan ordered 05/25 -results indicated possible pulmonary embolism however this is not thought to be acute by Dr. Avendaño. No further evaluation indicated. 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
--- NOTE | 2018-05-30 18:13 | P.PN ---
Subjective Interval history: Had colonoscopy done and found to have diverticulosis. No GI bleed at present and back on [facility]. Physical Exam Vital signs: Vital Signs 05/29/18 20:00 05/30/18 00:00 05/30/18 04:00 Temperature 97.4 F L 97.8 F 97.8 F Pulse Rate 66 65 52 L Respiratory Rate 18 18 17 Blood Pressure 134/60 180/80 H 141/65 H Pulse Oximetry 99 99 96 05/30/18 05:00 05/30/18 08:00 05/30/18 12:25 Temperature 98.1 F 97.4 F L Pulse Rate 50 L 57 L Respiratory Rate 18 17 16 Blood Pressure 169/71 H 109/56 L Pulse Oximetry 97 93 L 05/30/18 12:30 05/30/18 12:39 05/30/18 12:45 Temperature 97.4 F L Pulse Rate 52 L 57 L 54 L Respiratory Rate 16 16 16 Blood Pressure 102/53 L 109/56 L 103/55 L Pulse Oximetry 94 L 93 L 95 05/30/18 12:50 05/30/18 12:55 Temperature 97.6 F Pulse Rate 55 L Respiratory Rate 16 Blood Pressure 100/56 L Pulse Oximetry 96 95 Intake & Output 05/29/18 05/30/18 05/30/18 18:59 06:59 18:59 Intake Total 1300 / 1300 Output Total 940 / 940 Balance -940 / -940 1300 / 1300 Intake: IV 1000 / 1000 LR 1000 mL Inj 1,000 ML @ 30 1000 / 1000 mls/hr IV.SIG .Q24H [facility] Rx#: [id number] Anesthesia Amount 300 / 300 Output: Urine 940 / 940 Other: # Voids 1 Date of Last Bowel Movement 05/29/18 05/27/18 # Bowel Movements 1 Narrative: GENERAL: Well-nourished, obese, well-developed adult male in no distress. SKIN: Warm and dry. HEAD: Atraumatic. Normocephalic. CARDIOVASCULAR: Regular rate and rhythm. RESPIRATORY: No accessory muscle use. Clear to auscultation. Distant breath sounds. GASTROINTESTINAL: Abdomen soft, Round, non-tender, non-distended. No guarding. positive bowel sounds. MUSCULOSKELETAL: Extremities without clubbing, cyanosis, or edema. No obvious deformities. Limited range of motion bilateral upper extremities with 4/5 strength equal bilateral. NEUROLOGICAL: Awake and alert. No obvious cranial nerve deficits. Motor grossly within normal limits. Normal speech. Results - Labs CBC & Chem 7: 05/29/18 04:14 05/29/18 01:41 Laboratory Results - last 24 hr 05/26/18 05/29/18 05/30/18 09:13 23:11 08:05 POC Glucose 163 H 101 Aldosterone 17.0 05/30/18 05/30/18 05/30/18 12:31 13:26 17:20 POC Glucose 195 H 214 H 266 H Aldosterone Assessment and Plan - Assessment (1) RONAN (obstructive sleep apnea) Code(s): G47.33 - Obstructive sleep apnea (adult) (pediatric) Status: Acute (2) COPD (chronic obstructive pulmonary disease) with acute bronchitis Code(s): J44.0 - Chronic obstructive pulmonary disease with acute lower respiratory infection; J20.9 - Acute bronchitis, unspecified Status: Acute (3) GI bleed Code(s): K92.2 - Gastrointestinal hemorrhage, unspecified Status: Acute (4) Anemia Code(s): D64.9 - Anemia, unspecified Status: Acute (5) Syncope Code(s): R55 - Syncope and collapse Status: Acute (6) Generalized weakness Code(s): R53.1 - Weakness Status: Acute (7) CAD (coronary artery disease) Code(s): I25.10 - Atherosclerotic heart disease of [place] coronary artery without angina pectoris Status: Chronic (8) Paroxysmal A-fib Code(s): I48.0 - Paroxysmal atrial fibrillation Status: Chronic (9) Hypertension Code(s): I10 - Essential (primary) hypertension Status: Chronic (10) Obesity Code(s): E66.9 - Obesity, unspecified Status: Chronic (11) Gastrointestinal bleeding Code(s): K92.2 - Gastrointestinal hemorrhage, unspecified Status: Acute - Plan 1. CBC in am 2. Prednisone 10 mg daily and stop in 3 days 3. O2 2 L N/C while walking and CPAP at HS 4. Cont Duoneb nebs qid. 5. Resume anticoagulants. 6. IS q2h. 7. Pt will use His own CPAP machine at HS 8. Continue symbicort 160/4.5 mcg , 2 puffs BID (3) GI bleed Qualifiers: GI bleed type/associated pathology: unspecified gastrointestinal hemorrhage type Qualified Code(s): K92.2 - Gastrointestinal hemorrhage, unspecified (4) Anemia Qualifiers: Anemia type: unspecified type Qualified Code(s): D64.9 - Anemia, unspecified (5) Syncope Qualifiers: Syncope type: unspecified Qualified Code(s): R55 - Syncope and collapse
[2018-05-31] MEDS: Insulin NovoLOG Aspart Correctional Sugar Inj SQ SCH ×5 (03:08→20:33)
[2018-05-31 05:19] LABS: Hematocrit 28.3 % (39.0-51.0); Hemoglobin 8.7 gm/dL (13.0-17.0); Mean Corpuscular Hemoglobin 22.6 pg (27.0-34.0); Mean Corpuscular Volume 73.8 fL (80.0-100.0); Mean Platelet Volume 6.6 fL (7.0-11.0); Platelet Count 374 th/mm3 (150-450); Red Blood Count 3.83 mil/mm3 (4.50-5.90); Red Cell Distribution Width 21.5 % (11.6-17.2); White Blood Count 9.8 th/mm3 (4.0-11.0)
[2018-05-31 05:22] LABS: Mean Corpuscular HGB Conc 30.6 % (32.0-36.0)
[2018-05-31 05:44] LABS: Calcium 8.3 mg/dL (8.5-10.1); Carbon Dioxide 30.3 meq/L (21.0-32.0); Potassium 3.5 meq/L (3.5-5.1)
[2018-05-31] MEDS: Amiodarone 200 MG Tablet PO SCH (09:05)
[2018-05-31] MEDS: predniSONE 10 MG Tablet PO SCH (09:05)
[2018-05-31] MEDS: Metoprolol Tartrate 50 MG Tablet PO SCH ×2 (09:05→20:17)
[2018-05-31] MEDS: Furosemide 20 MG Tablet PO SCH (09:05)
[2018-05-31] MEDS: Ferrous Sulfate 325 MG Tablet PO SCH ×2 (09:05→20:19)
[2018-05-31] MEDS: Glimepiride 2 MG Tablet PO SCH (09:05)
[2018-05-31] MEDS: clonazePAM 0.5 MG Tablet PO SCH ×2 (09:05→20:17)
[2018-05-31] MEDS: Budesonide-Formoterol 160/4.5 MCG 6 GM Inhaler INH SCH ×2 (09:06→20:43)
[2018-05-31] MEDS: Duloxetine 60 MG DR Capsule PO SCH (09:06)
[2018-05-31] MEDS: Polyethylene Glycol 3350 17 GM Packet PO SCH (09:09)
[2018-05-31] MEDS: Senna/Docusate Sodium 8.6/50 MG Tablet PO SCH ×2 (09:09→20:19)
[2018-05-31] MEDS: Lidocaine 5% Patch T-DERMAL SCH (09:10)
[2018-05-31 09:43] LABS: % Iron Saturation 6.9 % (20-50)
--- NOTE | 2018-05-31 10:28 | P.PN ---
Subjective Interval history: Neurology consult requested for opinion on pt's symptoms pt has been experiencing tremors of right side w/loss of awareness tunnel vision with standing and walking-feels foggy tunnel vision and confused after walking a few steps then right side shakes and needs to sit.This was seen this am with him with the aid of nursing staff walker and wheelchair-he recovered back to normal once placed in wheelchair. This only has happened since admission maybe even before admission ? Physical Exam Vital signs: Vital Signs 05/30/18 12:25 05/30/18 12:30 05/30/18 12:39 Temperature 97.4 F L 97.4 F L Pulse Rate 57 L 52 L 57 L Respiratory Rate 16 16 16 Blood Pressure 109/56 L 102/53 L 109/56 L Pulse Oximetry 93 L 94 L 93 L 05/30/18 12:45 05/30/18 12:50 05/30/18 12:55 Temperature 97.6 F Pulse Rate 54 L 55 L Respiratory Rate 16 16 Blood Pressure 103/55 L 100/56 L Pulse Oximetry 95 96 95 05/30/18 16:00 05/30/18 20:00 05/30/18 22:29 Temperature 98 F 97.6 F Pulse Rate 55 L 79 Respiratory Rate 18 16 16 Blood Pressure 152/65 H Pulse Oximetry 100 98 05/30/18 22:51 05/31/18 00:00 05/31/18 01:19 Temperature 97.9 F Pulse Rate 55 L Respiratory Rate 18 16 18 Blood Pressure 128/60 Pulse Oximetry 95 05/31/18 04:00 05/31/18 08:00 Temperature 97.3 F L 97.8 F Pulse Rate 57 L 63 Respiratory Rate 18 20 Blood Pressure 147/66 H 148/67 H Pulse Oximetry 97 95 Intake & Output 05/30/18 05/31/18 05/31/18 18:59 06:59 18:59 Intake Total 2380 / 2380 1440 / 1440 Balance 2380 / 2380 1440 / 1440 Weight 146.8 kg Intake: IV 1000 / 1000 LR 1000 mL Inj 1,000 ML @ 30 1000 / 1000 mls/hr IV.SIG .Q24H [facility] Rx#: [id number] Oral 1080 / 1080 1440 / 1440 Anesthesia Amount 300 / 300 Other: # Voids 5 5 Date of Last Bowel Movement 05/27/18 05/27/18 # Bowel Movements 3 Narrative: awake alert nad heart rrr no afib now fluent perrla eomi motor nl tone no rigidity or cogwheeling no drift no atrophy no preston's sign able to get out of chair no tremors at rest or fnf. gait w/walker nl until about 10 steps into it when right ue more than le starts to shake her becomes confused and has to be placed into wheelchair or will fall. in wheelchair regains normal self no tremor alert . Results - Labs CBC & Chem 7: 05/31/18 03:51 05/31/18 03:51 Laboratory Results - last 24 hr 05/30/18 05/30/18 05/30/18 12:31 13:26 17:20 WBC RBC Hgb Hct MCV MCH MCHC RDW Plt Count MPV Sodium Potassium Chloride Carbon Dioxide Anion Gap BUN Creatinine Estimated GFR POC Glucose 195 H 214 H 266 H Random Glucose Calcium Iron TIBC % Saturation 05/30/18 05/31/18 05/31/18 20:44 02:58 03:51 WBC RBC Hgb Hct MCV MCH MCHC RDW Plt Count MPV Sodium 144 Potassium 3.5 Chloride 105 Carbon Dioxide 30.3 Anion Gap 9 BUN 9 Creatinine 1.08 Estimated GFR 69 L POC Glucose 158 H 112 H Random Glucose 101 Calcium 8.3 L Iron TIBC % Saturation 05/31/18 05/31/18 05/31/18 03:51 03:51 07:54 WBC 9.8 RBC 3.83 L Hgb 8.7 L Hct 28.3 L MCV 73.8 L MCH 22.6 L MCHC 30.6 L RDW 21.5 H Plt Count 374 MPV 6.6 L Sodium Potassium Chloride Carbon Dioxide Anion Gap BUN Creatinine Estimated GFR POC Glucose 132 H Random Glucose Calcium Iron 27 L TIBC 392 % Saturation 6.9 L Assessment and Plan - Assessment (1) GI bleed Code(s): K92.2 - Gastrointestinal hemorrhage, unspecified Status: Acute (2) Anemia Code(s): D64.9 - Anemia, unspecified Status: Acute (3) Syncope Code(s): R55 - Syncope and collapse Status: Acute (4) Generalized weakness Code(s): R53.1 - Weakness Status: Acute - Plan near syncope and tremor with gait does not look like sz-eeg neg and no change on keppra. concerning for orthostasis-that will be checked at bedside and should be checked with PT ambulating pt. will do mri brain ,mra cow and carotids as loop is compatible -d/w mri dept. unable to do cta due to renal parameters. if he is truly orthostatic and mri findings are normal should try low dose of midodrine to see if improves with walking. b12 180-replace im further input after tests (1) GI bleed Qualifiers: GI bleed type/associated pathology: unspecified gastrointestinal hemorrhage type Qualified Code(s): K92.2 - Gastrointestinal hemorrhage, unspecified (2) Anemia Qualifiers: Anemia type: unspecified type Qualified Code(s): D64.9 - Anemia, unspecified (3) Syncope Qualifiers: Syncope type: unspecified Qualified Code(s): R55 - Syncope and collapse
[2018-05-31] MEDS ORDERED: diazePAM 5 MG Tablet PO PRN (10:52)
--- NOTE | 2018-05-31 13:40 | P.PNIM ---
Subjective Interval history: Follow up GI bleed and tremors. Patient was seen by neurology and was very pleased. Denies any chest pain or sob. No new bleeding. Physical Exam Vital signs: Vital Signs 05/30/18 16:00 05/30/18 20:00 05/30/18 22:29 Temperature 98 F 97.6 F Pulse Rate 55 L 79 Respiratory Rate 18 16 16 Blood Pressure 152/65 H Pulse Oximetry 100 98 05/30/18 22:51 05/31/18 00:00 05/31/18 01:19 Temperature 97.9 F Pulse Rate 55 L Respiratory Rate 18 16 18 Blood Pressure 128/60 Pulse Oximetry 95 05/31/18 04:00 05/31/18 08:00 05/31/18 12:00 Temperature 97.3 F L 97.8 F 98.4 F Pulse Rate 57 L 63 63 Respiratory Rate 18 20 18 Blood Pressure 147/66 H 148/67 H 151/67 H Pulse Oximetry 97 95 95 Intake & Output 05/30/18 05/31/18 05/31/18 18:59 06:59 18:59 Intake Total 2380 / 2380 1440 / 1440 Balance 2380 / 2380 1440 / 1440 Weight 146.8 kg Intake: IV 1000 / 1000 LR 1000 mL Inj 1,000 ML @ 30 1000 / 1000 mls/hr IV.SIG .Q24H [facility] Rx#: [id number] Oral 1080 / 1080 1440 / 1440 Anesthesia Amount 300 / 300 Other: # Voids 5 5 Date of Last Bowel Movement 05/27/18 05/27/18 05/30/18 # Bowel Movements 3 Narrative: GENERAL: Well-nourished, obese, well-developed adult male in no obvious distress. SKIN: Warm and dry. HEAD: Atraumatic. Normocephalic. CARDIOVASCULAR: Regular rate and rhythm. RESPIRATORY: No accessory muscle use. Clear to auscultation. Breath sounds equal bilaterally. GASTROINTESTINAL: Abdomen soft, Round, non-tender, non-distended. No guarding. positive bowel sounds. MUSCULOSKELETAL: Extremities without clubbing, cyanosis, or edema. No obvious deformities. Limited range of motion bilateral upper extremities with 4/5 strength equal bilateral. NEUROLOGICAL: Awake and alert. No obvious cranial nerve deficits. Motor grossly within normal limits. Normal speech. Results - Labs CBC & Chem 7: 05/31/18 03:51 05/31/18 03:51 Laboratory Results - last 24 hr 05/26/18 05/30/18 05/30/18 09:13 13:26 17:20 WBC RBC Hgb Hct MCV MCH MCHC RDW Plt Count MPV Sodium Potassium Chloride Carbon Dioxide Anion Gap BUN Creatinine Estimated GFR POC Glucose 214 H 266 H Random Glucose Calcium Iron TIBC % Saturation Renin 63 05/30/18 05/31/18 05/31/18 20:44 02:58 03:51 WBC RBC Hgb Hct MCV MCH MCHC RDW Plt Count MPV Sodium 144 Potassium 3.5 Chloride 105 Carbon Dioxide 30.3 Anion Gap 9 BUN 9 Creatinine 1.08 Estimated GFR 69 L POC Glucose 158 H 112 H Random Glucose 101 Calcium 8.3 L Iron TIBC % Saturation Renin 05/31/18 05/31/18 05/31/18 03:51 03:51 07:54 WBC 9.8 RBC 3.83 L Hgb 8.7 L Hct 28.3 L MCV 73.8 L MCH 22.6 L MCHC 30.6 L RDW 21.5 H Plt Count 374 MPV 6.6 L Sodium Potassium Chloride Carbon Dioxide Anion Gap BUN Creatinine Estimated GFR POC Glucose 132 H Random Glucose Calcium Iron 27 L TIBC 392 % Saturation 6.9 L Renin 05/31/18 12:18 WBC RBC Hgb Hct MCV MCH MCHC RDW Plt Count MPV Sodium Potassium Chloride Carbon Dioxide Anion Gap BUN Creatinine Estimated GFR POC Glucose 233 H Random Glucose Calcium Iron TIBC % Saturation Renin Assessment and Plan - Assessment (1) Generalized weakness Code(s): R53.1 - Weakness Status: Acute - Plan 67-year-old male with a past medical history significant for atrial fibrillation anticoagulated on Eliquis, diabetes mellitus, coronary artery disease status post NC, CHF (last ejection fraction 55%), COPD and a history of breast, colon and prostate cancers presents to ED on 05/12 due to syncopal episode. Symptomatic anemia/syncope/lower GI bleed -Hemoccult positive ED with history of black, tarry stools; s/p 1 unit of PRBCs transfused -Status post EGD with snare polypectomy and colonoscopy with snare polypectomy and fulguration of AVM's 05/14. Procedure revealed gastric polyps, cecal AVM's, colon polyp and colon diverticulosis -Lower abdominal pain, GI ordered CT of abd/pelvis: Eventration of right hemidiaphragm, moderate gaseous distention of hepatic flexure in the right upper quadrant with component sitting anterior to the liver, previous transpedicular lumbar fixation, otherwise negative. -KUB 05/16 showed no disproportion needed dilated loops of small or large bowel, limited quality exam. s/p Relistor by GI -Colonoscopy negative, will resume ASA and Plavix, monitor H&H Syncope. Recurrent presyncopal/syncopal episodes -Cardiology consulted, and evaluated patient. Placed consult once again for reevaluation of patient due to ongoing syncopal episodes as well as 's request, greatly appreciate assistance and input. -Loop recorder interrogated, InSequent report noted sinus rhythm with PACs ( phone number [phone]) -2D echo showing EF 5560%, normal LV size, mild to moderate concentric left ventricular hypertrophy, no definitive wall motion abnormalities, moderate mitral annular calcification, mild aortic valve stenosis present -Bilateral carotid ultrasound with less than 50% stenosis -Bilateral upper and lower extremity ultrasounds negative for DVT -EEG with mild encephalopathy and sleep -Neurology Dr. Nichols evaluated patient, on low-dose Keppra for possible seizure activity with no improvement. -CT of C-spine and T- spine to due to possible clonus. - CT- T spine: Negative, CT of T-spine: Advanced degenerative changes at the endplates and facet joints, similar to recent CT. -Orthostatic BP's + on 05/19 (supine 162/68, sitting 140/63, standing 130/63) had a drop of 25mmHg w/ standing on systolic pressure. Repeat orthostatic BP on 05/21 was normal. -Blood pressure medications adjusted. -Discussed with Dr. Nichols 05/20, recommendations to discontinue Keppra, start low -dose Klonopin twice daily. Appreciate additional neurology evaluation. Neurology has cleared patient for discharge to rehab. -Reconsult Neurology per patient request for tremors, neuro has ordered MRI/MRA -Repeat orthostatic BPs, patient appears to be orthostatic Hyperglycemia/diabetes mellitus -On cardiac and diabetic diet, last A1c 8.8 on 01/10/18 -NovoLog 50 units at ADM, NovoLog 20 units at 8 PM (as requested per ) Novolin N 70units in a.m and 75 units HS, Accu-Cheks, sliding scale high coverage. Blood sugar control has been difficult - and patient are very resistant to any adjustments in dosing. -Continue 2 mg of glimepiride -BS improved but still somewhat labile due to steroid use -weaning steroid. Hypokalemia, resolved Hyponatremia, mild - add daily replacement. Monitor labs -Patient denies long-term chronic steroid use but does frequently get a Medrol Dosepak for COPD exacerbation -05/26 -Labs ordered to rule out aldosteronism. Consider starting spironolactone. still pending results. Atrial fibrillation, chronic HTN, chronic -Continue amiodarone/metoprolol (TSH ordered - WNL) -Eliquis resumed due to negative colonoscopy, ok with GI CHF/CAD Status post NC -Continue beta-gunner, diuretics (stopped due to persistent hypokalemia), as recommended by cardiology services -Continue home medications - BP initially on normal/low side, losartan and Zaroxolyn discontinued; restarted losartan 05/23 - BP was increased. Left shoulder rotator cuff injury Right finger pain - Right hand x-ray negative for fractures. -X-ray reviewed, no acute abnormality, mild osteoarthritis at the acromioclavicular joint, continue Lidoderm patch. -Cont PT Sleep apnea-attending home CPAP machine -Patient to use home machine. JUNIOR; improved -Monitor renal function intermittently. Persistent leukocytosis, chronic -Patient with a history of leukocytosis dating back to 2016 upon review of EMR -Possibly related to steroid use; currently attempting to wean steroid use, decreased to 10mg for [address] Tapia then DC -Treated with ceftriaxone and consulted ID consulted; Blood cultures collected on 05/12 with no growth to date; Patient afebrile with no suspected source of infection. Stopped ceftriaxone 05/26. - spoke with patient's pulmonary office. Recommends discharging and following up with outpatient clinic for ongoing antibiotic and steroid infusions. to follow up with patient. -05/22 = required 4 L O2 while with physical therapy to maintain sats; walk test ordered. Pulmonary reconsulted-VQ scan ordered 05/25 -results indicated possible pulmonary embolism however this is not thought to be acute by Dr. Avendaño. No further evaluation indicated. RLS -Continue home dose Requip DVT prophylaxis-Eliquis Discharge Planning: Pending echo
--- NOTE | 2018-05-31 17:10 | MR ---
EXAM DATE: 05/31/2018 5:07 PM EDT AGE/SEX: 67 years / Male INDICATIONS: . Tremors. CLINICAL DATA: This is the patient's initial encounter. Patient reports that signs and symptoms have been present for 2 days and indicates a pain score of 0/10. MEDICAL/SURGICAL HISTORY: Diabetes mellitus type II. Hypertension. Prostate ca. Fusion, lumba r. Prostatectomy. Appendectomy. Ketty. COMPARISON: [facility] [place], MR HEAD W/O CONTRAST, 05/31/2018. . TECHNIQUE: 3D [id number] MRA was performed. Source images, multiplanar STS MIP, and 3D volum e MIP reconstructions were reviewed. FINDINGS: There is excellent visualization of the major intracranial arteries out to the second-order branch ve ssels. There is no evidence for aneurysm, vessel truncation or stenosis, and no evidence for vascula r malformation. CONCLUSION: 1. Negative MRA Cow ([place]) non contrast. Electronically signed by: Ammy Hooks MD 05/31/2018 5:09 PM EDT
--- NOTE | 2018-05-31 17:12 | MR ---
EXAM DATE: 05/31/2018 5:08 PM EDT AGE/SEX: 67 years / Male INDICATIONS: . Tremors. CLINICAL DATA: This is the patient's initial encounter. Patient reports that signs and symptoms have been present for 2 days and indicates a pain score of 0/10. MEDICAL/SURGICAL HISTORY: Diabetes mellitus type II. Hypertension. Carcinoma, breast. Prosta te ca. Coronary artery stent. Fusion, lumbar. COMPARISON: No prior exams available for comparison. TECHNIQUE: Multiplanar, multisequence examination of the brain was performed without contrast. FINDINGS: Cerebrum: The ventricles are normal for age. No evidence of midline shift, mass lesion, hemorrhage or acute infarction. No extraaxial fluid collections are seen. Mildly prominent the sella White Matter: Minimal periventricular white matter changes Posterior Fossa: The cerebellum and brainstem are intact. The 4th ventricle is midline. The cerebel lopontine angle is unremarkable. The cerebellar tonsils are normal in position. Diffusion Imaging: No focal areas of restricted diffusion are seen. No evidence of acute infarction . Extracranial: The visualized portions of the orbits and paranasal sinuses are unremarkable. CONCLUSION: 1. Negative for acute process. 2. Minimal periventricular white matter changes 3. With mild empty sella without ballooning of the sella turcica. Electronically signed by: Abdon Baires MD 05/31/2018 5:11 PM EDT
--- NOTE | 2018-05-31 17:30 | MR ---
EXAM DATE: 05/31/2018 5:24 PM EDT AGE/SEX: 67 years / Male INDICATIONS: . Tremors CLINICAL DATA: This is the patient's initial encounter. Patient reports that signs and symptoms have been present for 2 days and indicates a pain score of 0/10. MEDICAL/SURGICAL HISTORY: Diabetes mellitus type II. Hypertension. Coronary artery stent. Fus ion, lumbar. Prostatectomy. COMPARISON: No prior exams available for comparison. TECHNIQUE: 3D time-of- flight MRA of the extracranial circulation was performed using a neurovascul ar coil. Post processing was performed including rotating sub-volume maximum intensity projections o f each carotid artery, rotating full-volume maximum intensity projections of both carotid arteries, s agittal and coronal sliding thin-slab reformations of each carotid artery, and left oblique sliding t hin-slab reformation through the aortic arch to include the origin of the arch branch vessels. Exam i s severely limited by the patient's large body habitus FINDINGS: Aortic Arch : There is a three-vessel origin of the great vessels from the aorta. No evidence of o stial narrowing. Right Carotid : The common carotid artery is intact. The carotid bulb has a normal configuration wi thout ulceration or narrowing. The internal carotid artery lumen is smooth without stenosis. The ex ternal carotid artery is intact. Left Carotid : The common carotid artery is intact. The carotid bulb has a normal configuration wit hout ulceration or narrowing. The internal carotid artery lumen is smooth without stenosis. The ext ernal carotid artery is intact. Vertebrals : The vertebral arteries have a symmetric diameter. No stenotic lesions are seen. CONCLUSION: 1. Limited exam because of body habitus. I do not see evidence for hemodynamically significant steno sis. Previous ultrasound dated 05/13/2018 had showed no significant stenosis as well. 2. Both vertebral arteries are patent. Percent stenosis is calculated using the diameter of the stenotic region over the diameter of the nor mal distal internal carotid artery Electronically signed by: Abdon Baires MD 05/31/2018 5:28 MIKE
[2018-06-01] MEDS: Insulin NovoLOG Aspart Correctional Sugar Inj SQ SCH ×5 (05:09→21:18)
[2018-06-01] MEDS: Polyethylene Glycol 3350 17 GM Packet PO SCH (08:44)
[2018-06-01] MEDS: Furosemide 20 MG Tablet PO SCH (08:48)
[2018-06-01] MEDS: Metoprolol Tartrate 50 MG Tablet PO SCH ×2 (08:49→21:22)
[2018-06-01] MEDS: Ferrous Sulfate 325 MG Tablet PO SCH ×2 (08:49→21:22)
[2018-06-01] MEDS: clonazePAM 0.5 MG Tablet PO SCH ×2 (08:49→21:23)
[2018-06-01] MEDS: Senna/Docusate Sodium 8.6/50 MG Tablet PO SCH ×2 (08:49→21:22)
[2018-06-01] MEDS: predniSONE 10 MG Tablet PO SCH (08:51)
[2018-06-01] MEDS: Amiodarone 200 MG Tablet PO SCH (08:51)
[2018-06-01] MEDS: Glimepiride 2 MG Tablet PO SCH (08:51)
[2018-06-01] MEDS: Duloxetine 60 MG DR Capsule PO SCH (08:54)
[2018-06-01] MEDS: Lidocaine 5% Patch T-DERMAL SCH (08:55)
--- NOTE | 2018-06-01 09:51 | P.PN ---
Subjective Interval history: no new issues per pt except what has been discussed yesterday. had scans. Physical Exam Vital signs: Vital Signs 05/31/18 12:00 05/31/18 17:25 05/31/18 18:15 Temperature 98.4 F 98.1 F Pulse Rate 63 63 Respiratory Rate 18 20 Blood Pressure 151/67 H 154/66 H Pulse Oximetry 95 97 97 05/31/18 20:00 05/31/18 20:04 05/31/18 23:45 Temperature 98.0 F Pulse Rate 69 68 55 L Respiratory Rate 18 Blood Pressure 162/71 H Pulse Oximetry 96 06/01/18 00:00 06/01/18 00:30 06/01/18 04:00 Temperature 97.7 F 97.7 F Pulse Rate 54 L 70 Respiratory Rate 17 17 17 Blood Pressure 158/71 H 151/61 H Pulse Oximetry 96 95 06/01/18 06:30 06/01/18 08:00 06/01/18 09:00 Temperature 98.7 F Pulse Rate 78 Respiratory Rate 17 16 Blood Pressure 171/77 H 164/74 H Pulse Oximetry 95 Intake & Output 05/31/18 06/01/18 06/01/18 18:59 06:59 18:59 Intake Total 840 / 840 Balance 840 / 840 Intake: Oral 840 / 840 Other: # Voids 3 6 Date of Last Bowel Movement 05/30/18 05/30/18 - Constitutional no acute distress - Routine HEENT Exam Head: Present: normocephalic, atraumatic Eye: Present: EOMI, PERRL - Routine Neck Exam Present: supple - Routine Neurological Exam Present: oriented X3, moving all extremities, normal tone, normal speech Results - Labs CBC & Chem 7: 05/31/18 03:51 05/31/18 03:51 Laboratory Results - last 24 hr 05/26/18 05/31/18 05/31/18 09:13 12:18 17:20 POC Glucose 233 H 211 H [place] 63 05/31/18 06/01/18 06/01/18 20:23 03:01 08:39 POC Glucose 259 H 76 93 Renin - Imaging Impressions Head MRI 05/31/18 00:00 CONCLUSION: 1. Negative for acute process. 2. Minimal periventricular white matter changes 3. With mild empty sella without ballooning of the sella turcica. Head MRA 05/31/18 00:00 CONCLUSION: 1. Negative MRA [place] ([place]) non contrast. Neck MRA 05/31/18 00:00 CONCLUSION: 1. Limited exam because of body habitus. I do not see evidence for hemodynamically significant stenosis. Previous ultrasound dated 05/13/2018 had showed no significant stenosis as well. 2. Both vertebral arteries are patent. _ Percent stenosis is calculated using the diameter of the stenotic region over the diameter of the normal distal internal carotid artery _ Assessment and Plan - Assessment (1) GI bleed Code(s): K92.2 - Gastrointestinal hemorrhage, unspecified Status: Acute (2) Anemia Code(s): D64.9 - Anemia, unspecified Status: Acute (3) Syncope Code(s): R55 - Syncope and collapse Status: Acute (4) Generalized weakness Code(s): R53.1 - Weakness Status: Acute - Plan near syncope and tremor with gait does not look like sz-eeg neg and no change on keppra. concerning for orthostasis-that will be checked at bedside and should be checked with PT ambulating pt. mri no cva or mass mra cow and ca ok this has to be related to bp and or meds with his standing as it never happened sitting or laying flat. consider reeval by cardiology stocking while oob and ambulationg needs bp checked with standing and gait can use wheelchair to get around unit and not be so sedentary. will need PT/rehab, some of his bp meds may need addressing. ?from requip also can be stopped and observed for change in symptoms. d/w Dr Lopez. (1) GI bleed Qualifiers: GI bleed type/associated pathology: unspecified gastrointestinal hemorrhage type Qualified Code(s): K92.2 - Gastrointestinal hemorrhage, unspecified (2) Anemia Qualifiers: Anemia type: unspecified type Qualified Code(s): D64.9 - Anemia, unspecified (3) Syncope Qualifiers: Syncope type: unspecified Qualified Code(s): R55 - Syncope and collapse
--- NOTE | 2018-06-01 12:01 | P.PN ---
Subjective Interval history: Follow-up tremors/labile BP June 01, 2018-patient seen and examined, BP labile. Patient with tremors with ambulation. Case discussed with neurologist Dr. Ibarra. Physical Exam Vital signs: Vital Signs 05/31/18 12:00 05/31/18 17:25 05/31/18 18:15 Temperature 98.4 F 98.1 F Pulse Rate 63 63 Respiratory Rate 18 20 Blood Pressure 151/67 H 154/66 H Pulse Oximetry 95 97 97 05/31/18 20:00 05/31/18 20:04 05/31/18 23:45 Temperature 98.0 F Pulse Rate 69 68 55 L Respiratory Rate 18 Blood Pressure 162/71 H Pulse Oximetry 96 06/01/18 00:00 06/01/18 00:30 06/01/18 04:00 Temperature 97.7 F 97.7 F Pulse Rate 54 L 70 Respiratory Rate 17 17 17 Blood Pressure 158/71 H 151/61 H Pulse Oximetry 96 95 06/01/18 06:30 06/01/18 08:00 06/01/18 08:46 Temperature 98.7 F Pulse Rate 73 Respiratory Rate 17 16 Blood Pressure 171/77 H Pulse Oximetry 95 95 06/01/18 09:00 Temperature Pulse Rate Respiratory Rate Blood Pressure 164/74 H Pulse Oximetry Intake & Output 05/31/18 06/01/18 06/01/18 18:59 06:59 18:59 Intake Total 840 / 840 Balance 840 / 840 Intake: Oral 840 / 840 Other: # Voids 3 6 Date of Last Bowel Movement 05/30/18 05/30/18 05/31/18 Narrative: GENERAL: NAD. SKIN: Warm and dry. HEAD: Atraumatic. Normocephalic. CARDIOVASCULAR: Regular rate and rhythm. RESPIRATORY: No accessory muscle use. Clear to auscultation. Breath sounds equal bilaterally. GASTROINTESTINAL: Abdomen soft, Round, non-tender, non-distended. No guarding. positive bowel sounds. MUSCULOSKELETAL: Extremities without clubbing, cyanosis, or edema. No obvious deformities. bilateral upper extremities with 4/5 strength equal bilateral. NEUROLOGICAL: Awake and alert. No obvious cranial nerve deficits. Motor grossly within normal limits. Normal speech. Results - Labs CBC & Chem 7: 05/31/18 03:51 05/31/18 03:51 Laboratory Results - last 24 hr 05/26/18 05/31/18 05/31/18 09:13 12:18 17:20 POC Glucose 233 H 211 H [place] 63 05/31/18 06/01/18 06/01/18 20:23 03:01 08:39 POC Glucose 259 H 76 93 Renin 06/01/18 11:16 POC Glucose 204 H Renin - Imaging Impressions Head MRI 05/31/18 00:00 CONCLUSION: 1. Negative for acute process. 2. Minimal periventricular white matter changes 3. With mild empty sella without ballooning of the sella turcica. Head MRA 05/31/18 00:00 CONCLUSION: 1. Negative MRA [place] ([place]) non contrast. Neck MRA 05/31/18 00:00 CONCLUSION: 1. Limited exam because of body habitus. I do not see evidence for hemodynamically significant stenosis. Previous ultrasound dated 05/13/2018 had showed no significant stenosis as well. 2. Both vertebral arteries are patent. _ Percent stenosis is calculated using the diameter of the stenotic region over the diameter of the normal distal internal carotid artery _ Assessment and Plan - Assessment (1) Generalized weakness Code(s): R53.1 - Weakness Status: Acute - Plan 67-year-old man with Symptomatic anemia/syncope/lower GI bleed s/p 1 unit of PRBCs transfused Status post EGD with snare polypectomy and colonoscopy with snare polypectomy and fulguration of AVM's 05/14. Colonoscopy negative ASA and Plavix were resumed, monitor H&H Syncope. Recurrent presyncopal/syncopal episodes Cardiology consulted, and evaluated patient. Loop recorder interrogated, [employer] report noted sinus rhythm with PACs ( phone number [phone]) 2D echo showing EF 5560% Bilateral carotid ultrasound with less than 50% stenosis Bilateral upper and lower extremity ultrasounds negative for DVT EEG with mild encephalopathy and sleep Initially evaluated by neurology Dr. Nichols evaluated patient, on low-dose Keppra for possible seizure activity with no improvement. CT of C-spine and T- spine to due to possible clonus. - CT- T spine: Negative, CT of T-spine: Advanced degenerative changes at the endplates and facet joints, similar to recent CT. MRI/MRA reports noted Adjust BP meds accordingly Will hold Requip today 06/01/18 Continue with PT Hyperglycemia/diabetes mellitus NovoLog 50 units at ADM, NovoLog 20 units at 8 PM (as requested per ) Novolin N 70units in a.m and 75 units HS, Accu-Cheks, SSI Continue 2 mg of glimepiride Hypokalemia, resolved Hyponatremia, mild Atrial fibrillation, chronic HTN, chronic Continue amiodarone/metoprolol (TSH ordered - WNL), Eliquis CHF/CAD Status post [place] Continue beta-gunner, diuretics Continue home medications Continue losartan and Zaroxolyn Left shoulder rotator cuff injury Right finger pain-resolved Right hand x-ray negative for fractures. X-ray reviewed, no acute abnormality, mild osteoarthritis at the acromioclavicular joint, continue Lidoderm patch. Cont PT Sleep apnea-attending home CPAP machine Patient to use home machine. JUNIOR; improved Monitor renal function intermittently. Persistent leukocytosis, chronic 2/2 steroid RLS Hold Requip due to side effect DVT prophylaxis-Eliquis
[2018-06-01] MEDS: Budesonide-Formoterol 160/4.5 MCG 6 GM Inhaler INH SCH ×2 (12:34→21:27)
--- NOTE | 2018-06-01 15:10 | P.PN ---
Subjective Interval history: Up in a chair and is doing well. Hgb stable. No chest pains. Off O2 . Physical Exam Vital signs: Vital Signs 05/31/18 17:25 05/31/18 18:15 05/31/18 20:00 Temperature 98.1 F 98.0 F Pulse Rate 63 69 Respiratory Rate 20 18 Blood Pressure 154/66 H 162/71 H Pulse Oximetry 97 97 96 05/31/18 20:04 05/31/18 23:45 06/01/18 00:00 Temperature 97.7 F Pulse Rate 68 55 L 54 L Respiratory Rate 17 Blood Pressure 158/71 H Pulse Oximetry 96 06/01/18 00:30 06/01/18 04:00 06/01/18 06:30 Temperature 97.7 F Pulse Rate 70 Respiratory Rate 17 17 17 Blood Pressure 151/61 H Pulse Oximetry 95 06/01/18 08:00 06/01/18 08:46 06/01/18 09:00 Temperature 98.7 F Pulse Rate 73 Respiratory Rate 16 Blood Pressure 171/77 H 164/74 H Pulse Oximetry 95 95 06/01/18 12:00 Temperature 97.8 F Pulse Rate 53 L Respiratory Rate 18 Blood Pressure 164/72 H Pulse Oximetry 94 L Intake & Output 05/31/18 06/01/18 06/01/18 18:59 06:59 18:59 Intake Total 840 / 840 Balance 840 / 840 Intake: Oral 840 / 840 Other: # Voids 3 6 Date of Last Bowel Movement 05/30/18 05/30/18 05/31/18 Narrative: GENERAL: NAD.Elderly W/M SKIN: Warm and dry. HEAD: Atraumatic. Normocephalic. CARDIOVASCULAR: Regular rate and rhythm. RESPIRATORY: No accessory muscle use. occ Wheeze and Breath sounds equal bilaterally. GASTROINTESTINAL: Abdomen soft, Round, non-tender, non-distended. No guarding. positive bowel sounds. MUSCULOSKELETAL: Extremities without clubbing, cyanosis, but has 1 + edema. No obvious deformities. bilateral upper extremities with 4/5 strength equal bilateral. NEUROLOGICAL: Awake and alert. No obvious cranial nerve deficits. Motor grossly within normal limits. Normal speech. Results - Labs CBC & Chem 7: 05/31/18 03:51 05/31/18 03:51 Laboratory Results - last 24 hr 09/04/1005/31/18 06/01/18 17:20 20:23 03:01 POC Glucose 211 H 259 H 76 06/01/18 06/01/18 08:39 11:16 POC Glucose 93 204 H - Imaging Impressions Head MRI 05/31/18 00:00 CONCLUSION: 1. Negative for acute process. 2. Minimal periventricular white matter changes 3. With mild empty sella without ballooning of the sella turcica. Head MRA 05/31/18 00:00 CONCLUSION: 1. Negative MRA [place] ([place]) non contrast. Neck MRA 05/31/18 00:00 CONCLUSION: 1. Limited exam because of body habitus. I do not see evidence for hemodynamically significant stenosis. Previous ultrasound dated 05/13/2018 had showed no significant stenosis as well. 2. Both vertebral arteries are patent. _ Percent stenosis is calculated using the diameter of the stenotic region over the diameter of the normal distal internal carotid artery _ Assessment and Plan - Assessment (1) RONAN (obstructive sleep apnea) Code(s): G47.33 - Obstructive sleep apnea (adult) (pediatric) Status: Acute (2) COPD (chronic obstructive pulmonary disease) with acute bronchitis Code(s): J44.0 - Chronic obstructive pulmonary disease with acute lower respiratory infection; J20.9 - Acute bronchitis, unspecified Status: Acute (3) GI bleed Code(s): K92.2 - Gastrointestinal hemorrhage, unspecified Status: Acute (4) Anemia Code(s): D64.9 - Anemia, unspecified Status: Acute (5) Syncope Code(s): R55 - Syncope and collapse Status: Acute (6) Generalized weakness Code(s): R53.1 - Weakness Status: Acute (7) CAD (coronary artery disease) Code(s): I25.10 - Atherosclerotic heart disease of [place] coronary artery without angina pectoris Status: Chronic (8) Paroxysmal A-fib Code(s): I48.0 - Paroxysmal atrial fibrillation Status: Chronic (9) Hypertension Code(s): I10 - Essential (primary) hypertension Status: Chronic (10) Obesity Code(s): E66.9 - Obesity, unspecified Status: Chronic (11) Gastrointestinal bleeding Code(s): K92.2 - Gastrointestinal hemorrhage, unspecified Status: Acute - Plan 1. Continue symbicort 160/4.5 mcg , 2 puffs BID 2. CBC,BMP in am 3. Cont CPAP at HS 4. Cont Duoneb nebs qid. 5. D/C O2 6. IS q2h. (3) GI bleed Qualifiers: GI bleed type/associated pathology: unspecified gastrointestinal hemorrhage type Qualified Code(s): K92.2 - Gastrointestinal hemorrhage, unspecified (4) Anemia Qualifiers: Anemia type: unspecified type Qualified Code(s): D64.9 - Anemia, unspecified (5) Syncope Qualifiers: Syncope type: unspecified Qualified Code(s): R55 - Syncope and collapse
[2018-06-02 06:59] LABS: Calcium 8.4 mg/dL (8.5-10.1); Carbon Dioxide 32.2 meq/L (21.0-32.0); Potassium 3.5 meq/L (3.5-5.1)
[2018-06-02 09:52] LABS: Baso # (Auto) 0.1 th/mm3 (0.0-0.2); Baso % (Auto) 0.7 % (0.0-2.0); Eos % (Auto) 0.4 % (0.0-4.0); Hematocrit 31.3 % (39.0-51.0); Hemoglobin 9.3 gm/dL (13.0-17.0); Lymph # (Auto) 2.4 th/mm3 (1.0-4.8); Lymph % (Auto) 22.5 % (9.0-44.0); Mean Corpuscular Hemoglobin 22.3 pg (27.0-34.0); Mean Corpuscular Volume 75.1 fL (80.0-100.0); Mean Platelet Volume 6.4 fL (7.0-11.0); Mono # (Auto) 0.8 th/mm3 (0.0-0.9); Mono % (Auto) 7.2 % (0.0-8.0); Neut # (Auto) 7.5 th/mm3 (1.8-7.7); Neut % (Auto) 69.2 % (16.0-70.0); Platelet Count 327 th/mm3 (150-450); Red Blood Count 4.17 mil/mm3 (4.50-5.90); Red Cell Distribution Width 21.2 % (11.6-17.2); White Blood Count 10.9 th/mm3 (4.0-11.0)
[2018-06-02] MEDS: Glimepiride 2 MG Tablet PO SCH (09:57)
[2018-06-02] MEDS: predniSONE 10 MG Tablet PO SCH (09:57)
[2018-06-02] MEDS: clonazePAM 0.5 MG Tablet PO SCH ×2 (09:58→21:57)
[2018-06-02] MEDS: Metoprolol Tartrate 50 MG Tablet PO SCH ×2 (09:59→21:58)
[2018-06-02] MEDS: Furosemide 20 MG Tablet PO SCH (09:59)
[2018-06-02] MEDS: Senna/Docusate Sodium 8.6/50 MG Tablet PO SCH ×2 (09:59→21:58)
[2018-06-02] MEDS: Amiodarone 200 MG Tablet PO SCH (09:59)
[2018-06-02] MEDS: Ferrous Sulfate 325 MG Tablet PO SCH ×2 (09:59→21:58)
[2018-06-02 10:00] LABS: Mean Corpuscular HGB Conc 29.7 % (32.0-36.0)
[2018-06-02] MEDS: Polyethylene Glycol 3350 17 GM Packet PO SCH (10:00)
[2018-06-02] MEDS: Lidocaine 5% Patch T-DERMAL SCH (10:00)
[2018-06-02] MEDS: Duloxetine 60 MG DR Capsule PO SCH (10:00)
[2018-06-02] MEDS: Budesonide-Formoterol 160/4.5 MCG 6 GM Inhaler INH SCH ×2 (10:01→22:05)
[2018-06-02] MEDS: Insulin NovoLOG Aspart Correctional Sugar Inj SQ SCH ×5 (10:02→21:58)
[2018-06-02 10:20] LABS: Calcium 8.7 mg/dL (8.5-10.1); Carbon Dioxide 28.9 meq/L (21.0-32.0); Potassium 3.6 meq/L (3.5-5.1)
--- NOTE | 2018-06-02 10:44 | P.PN ---
Subjective Interval history: Follow-up tremors/labile BP June 01, 2018-patient seen and examined, BP labile. Patient with tremors with ambulation. Case discussed with neurologist Dr. Ibarra. June 02, 2018-patient seen and examined, he was observed having right hand tremors while walking with physical therapist. Patient had no recollection when it happened Physical Exam Vital signs: Vital Signs 06/01/18 12:00 06/01/18 16:00 06/01/18 16:05 Temperature 97.8 F 98.1 F Pulse Rate 53 L 63 70 Respiratory Rate 18 18 Blood Pressure 164/72 H 165/77 H 144/67 H Pulse Oximetry 94 L 97 06/01/18 19:06 06/01/18 20:00 06/02/18 00:38 Temperature 98.3 F 97.4 F L Pulse Rate 72 72 51 L Respiratory Rate 18 18 Blood Pressure 134/62 154/70 H Pulse Oximetry 97 98 06/02/18 03:00 06/02/18 08:00 Temperature 97.6 F 97.7 F Pulse Rate 63 Respiratory Rate 16 Blood Pressure 151/64 H Pulse Oximetry 96 94 L Intake & Output 06/01/18 06/02/18 06/02/18 18:59 06:59 18:59 Intake Total 600 / 600 360 / 360 Balance 600 / 600 360 / 360 Weight 146 kg Intake: Oral 600 / 600 360 / 360 Other: # Voids 5 3 Date of Last Bowel Movement 05/31/18 05/31/18 # Bowel Movements 3 0 Narrative: GENERAL: NAD SKIN: Warm and dry. HEAD: Atraumatic. Normocephalic. CARDIOVASCULAR: Regular rate and rhythm. RESPIRATORY: No accessory muscle use. occ Wheeze and Breath sounds equal bilaterally. GASTROINTESTINAL: Abdomen soft, Round, non-tender, non-distended. No guarding. positive bowel sounds. MUSCULOSKELETAL: Extremities without clubbing, cyanosis, but has 1 + edema. No obvious deformities. bilateral upper extremities with 4/5 strength equal bilateral. NEUROLOGICAL: Awake and alert. No obvious cranial nerve deficits. Motor grossly within normal limits. Normal speech. Results - Labs CBC & Chem 7: 06/02/18 09:15 06/02/18 09:15 Laboratory Results - last 24 hr 06/01/18 06/01/18 06/01/18 11:16 16:36 20:28 WBC RBC Hgb Hct MCV MCH MCHC RDW Plt Count MPV Neut % (Auto) Lymph % (Auto) Banks % (Auto) Eos % (Auto) Baso % (Auto) Neut # (Auto) Lymph # (Auto) Banks # (Auto) Eos # (Auto) Baso # (Auto) WBC Differential Differential Comment Sodium Potassium Chloride Carbon Dioxide Anion Gap BUN Creatinine Estimated GFR POC Glucose 204 H 200 H 218 H Random Glucose Calcium Magnesium 06/02/18 06/02/18 06/02/18 02:54 06:03 08:18 WBC RBC Hgb Hct MCV MCH MCHC RDW Plt Count MPV Neut % (Auto) Lymph % (Auto) Banks % (Auto) Eos % (Auto) Baso % (Auto) Neut # (Auto) Lymph # (Auto) Banks # (Auto) Eos # (Auto) Baso # (Auto) WBC Differential Differential Comment Sodium 145 Potassium 3.5 Chloride 105 Carbon Dioxide 32.2 H Anion Gap 8 BUN 9 Creatinine 0.95 Estimated GFR 80 L POC Glucose 134 H 93 Random Glucose 83 Calcium 8.4 L Magnesium 06/02/18 06/02/18 06/02/18 09:15 09:15 10:15 WBC 10.9 RBC 4.17 L Hgb 9.3 L Hct 31.3 L MCV 75.1 L MCH 22.3 L MCHC 29.7 L RDW 21.2 H Plt Count 327 MPV 6.4 L Neut % (Auto) 69.2 Lymph % (Auto) 22.5 Banks % (Auto) 7.2 Eos % (Auto) 0.4 Baso % (Auto) 0.7 Neut # (Auto) 7.5 Lymph # (Auto) 2.4 Banks # (Auto) 0.8 Eos # (Auto) 0.0 Baso # (Auto) 0.1 WBC Differential . Differential Comment Auto diff final Sodium 141 Potassium 3.6 Chloride 103 Carbon Dioxide 28.9 Anion Gap 9 BUN 8 Creatinine 1.15 Estimated GFR 64 L POC Glucose 228 H Random Glucose 181 H Calcium 8.7 Magnesium 2.0 Assessment and Plan - Assessment (1) Generalized weakness Code(s): R53.1 - Weakness Status: Acute - Plan 67-year-old man with Symptomatic anemia/syncope/lower GI bleed s/p 1 unit of PRBCs transfused Status post EGD with snare polypectomy and colonoscopy with snare polypectomy and fulguration of AVM's 05/14. Colonoscopy negative ASA and Plavix were resumed, monitor H&H Syncope. Recurrent presyncopal/syncopal episodes Cardiology consulted, and evaluated patient. Loop recorder interrogated, [employer] report noted sinus rhythm with PACs ( phone number [phone]) 2D echo showing EF 5560% Bilateral carotid ultrasound with less than 50% stenosis Bilateral upper and lower extremity ultrasounds negative for DVT EEG with mild encephalopathy and sleep; will recommend continuous 24 hours EEG monitoring Initially evaluated by neurology Dr. Nichols evaluated patient, on low-dose Keppra for possible seizure activity with no improvement. CT of C-spine and T- spine to due to possible clonus. - CT- T spine: Negative, CT of T-spine: Advanced degenerative changes at the endplates and facet joints, similar to recent CT. MRI/MRA reports noted Adjust BP meds accordingly Requip on hold as of June 01, 2018 Continue with PT Hyperglycemia/diabetes mellitus NovoLog 50 units at ADM, NovoLog 20 units at 8 PM (as requested per ) Novolin N 70units in a.m and 75 units HS, Accu-Cheks, SSI Continue 2 mg of glimepiride Hypokalemia, resolved Hyponatremia, mild Atrial fibrillation, chronic HTN, chronic Continue amiodarone/metoprolol (TSH ordered - WNL), Eliquis CHF/CAD Status post [place] Continue beta-gunner, diuretics Continue home medications Continue losartan and Zaroxolyn Left shoulder rotator cuff injury Right finger pain-resolved Right hand x-ray negative for fractures. X-ray reviewed, no acute abnormality, mild osteoarthritis at the acromioclavicular joint, continue Lidoderm patch. Cont PT Sleep apnea-attending home CPAP machine Patient to use home machine. JUNIOR; improved Monitor renal function intermittently. Persistent leukocytosis, chronic 2/2 steroid RLS Requip hold as of June 01, 2018 due to side effect DVT prophylaxis-Eliquis
[2018-06-03] MEDS: Insulin NovoLOG Aspart Correctional Sugar Inj SQ SCH ×5 (05:05→20:43)
[2018-06-03] MEDS: Ferrous Sulfate 325 MG Tablet PO SCH ×2 (08:38→20:39)
[2018-06-03] MEDS: Glimepiride 2 MG Tablet PO SCH (08:38)
[2018-06-03] MEDS: Furosemide 20 MG Tablet PO SCH (08:38)
[2018-06-03] MEDS: Amiodarone 200 MG Tablet PO SCH (08:38)
[2018-06-03] MEDS: Senna/Docusate Sodium 8.6/50 MG Tablet PO SCH ×2 (08:38→20:39)
[2018-06-03] MEDS: clonazePAM 0.5 MG Tablet PO SCH ×2 (08:39→20:39)
[2018-06-03] MEDS: Metoprolol Tartrate 50 MG Tablet PO SCH ×2 (08:39→20:39)
[2018-06-03] MEDS: Lidocaine 5% Patch T-DERMAL SCH (08:42)
[2018-06-03] MEDS: Duloxetine 60 MG DR Capsule PO SCH (08:45)
[2018-06-03] MEDS: Budesonide-Formoterol 160/4.5 MCG 6 GM Inhaler INH SCH ×2 (08:45→21:14)
[2018-06-03] MEDS: Polyethylene Glycol 3350 17 GM Packet PO SCH (08:45)
--- NOTE | 2018-06-03 13:44 | P.PNIM ---
Subjective Interval history: Mr. Fay was afebrile with stable vital signs overnight. Patient was accompanied by his today; they report multiple concerns including lack of sure diagnosis for syncopal/near syncopal episodes and right upper extremity tremoring, persistent left shoulder pain, persistent right finger pain and leg swelling. patient has also reported recent groin pain. Patient does not report chest pain or shortness of breath currently. he states that his last episode of near syncope was yesterday when ambulating for Dr. Lopez. Patient does not report headache or extremity numbness/tingling/ weakness. Physical Exam Vital signs: Vital Signs 06/02/18 16:00 06/02/18 20:00 06/02/18 23:05 Temperature 98.0 F 97.9 F 97.4 F L Pulse Rate 69 72 65 Respiratory Rate 16 19 19 Blood Pressure 175/80 H 163/65 H 133/68 Pulse Oximetry 95 99 96 Intake & Output 06/02/18 06/03/18 06/03/18 18:59 06:59 18:59 Intake Total 650 / 650 480 / 480 Balance 650 / 650 480 / 480 Weight 146 kg Intake: Oral 650 / 650 480 / 480 Other: # Voids 4 3 Date of Last Bowel Movement 06/02/18 06/02/18 # Bowel Movements 2 0 Narrative: GENERAL: NAD SKIN: Warm and dry. Left groin area with ~3 cm painful lump; indurated without fluctuance. Slightly warm to touch; suggestive of folliculitis. HEENT: EOM grossly I. Normal mucus membranes CARDIOVASCULAR: Regular rate and rhythm. Grossly normal perfusion RESPIRATORY: CTAB; normal rate GASTROINTESTINAL: Abdomen soft, nontender, normal BS MUSCULOSKELETAL: Extremities without significant edema; calves nontender. Grossly normal ROM and motor function. Ambulation not assessed NEUROLOGICAL: Awake and alert. Grossly normal CN. Grossly normal peripheral motor/sensory function Results - Labs CBC & Chem 7: 06/02/18 09:15 06/02/18 09:15 Laboratory Results - last 24 hr 06/02/18 06/02/18 06/03/18 18:06 21:02 03:17 POC Glucose 218 H 241 H 63 L 06/03/18 06/03/18 06/03/18 04:49 08:26 11:42 POC Glucose 89 166 H 100 Assessment and Plan - Assessment (1) Generalized weakness Code(s): R53.1 - Weakness Status: Acute (2) GI bleed Code(s): K92.2 - Gastrointestinal hemorrhage, unspecified Status: Acute (3) Anemia Code(s): D64.9 - Anemia, unspecified Status: Acute (4) Syncope Code(s): R55 - Syncope and collapse Status: Acute (5) CAD (coronary artery disease) Code(s): I25.10 - Atherosclerotic heart disease of [place] coronary artery without angina pectoris Status: Chronic (6) Paroxysmal A-fib Code(s): I48.0 - Paroxysmal atrial fibrillation Status: Chronic (7) Hypertension Code(s): I10 - Essential (primary) hypertension Status: Chronic (8) Obesity Code(s): E66.9 - Obesity, unspecified Status: Chronic - Plan Mr. Fay is a 67-year-old man with: Syncope. Recurrent presyncopal/syncopal episodes Loop recorder interrogated, [employer] report noted sinus rhythm with PACs ( phone number [phone]) 2D echo showing EF 5560% Bilateral carotid ultrasound with less than 50% stenosis Bilateral upper and lower extremity ultrasounds negative for DVT EEG with mild encephalopathy and sleep MRI brain, MRA brain and neck- normal CT of C-spine and T- spine- showed worsening of cervical degeneration since 2017; similar to prior -Cardiology consulted. echo reassuring. gentle diuresis given. ASA and Plavix for recent stenting. Afib with regular rhythm. No cardiac etiology for syncope suspected currently. -Neurology consulted -not suspicious for seizure. Concerning for orthostasis -Wheelchair for ambulation -Continue PT/rehab -Orthostatics ambulating with PT -Consider Cardiology reconsult -Requip held -Continue with PT Symptomatic anemia/syncope/lower GI bleed Impression: Stable Hgb; s/p 1 unit of PRBCs transfused Status post EGD with snare polypectomy and colonoscopy with snare polypectomy and fulguration of AVM's 05/14 EGD/colonscopy 05/31- esophagitis, gastritis, gastric polyp -Gastroenterology consulted; outpatient follow-up recommended -ASA, Plavix resumed -Continue Pantoprazole 40mg daily Atrial fibrillation, chronic HTN, chronic Continue amiodarone/metoprolol (TSH ordered - WNL), Eliquis CHF/CAD Status post [place] Continue beta-gunner, diuretics, statin Continue home medications Continue losartan and Zaroxolyn -Continue Furosemide 20mg daily COPD Impression: stable respiratory status currently -Continue Symbicort -Continue PRN [place] Sleep apnea-attending home CPAP machine Patient to use home machine. Hyperglycemia/diabetes mellitus NovoLog 50 units at ADM, NovoLog 20 units at 8 PM (as requested per ) Novolin N 70units in a.m and 75 units HS, Accu-Cheks, SSI Continue 2 mg of glimepiride Hypokalemia, resolved Hyponatremia, mild Left shoulder rotator cuff injury Right finger pain-resolved Impression: Patient and provided with negative XR imaging of shoulder; recommended to have continued physical therapy JUNIOR; resolved -Monitor renal function intermittently. Persistent leukocytosis, chronic Impression: ID consulted; suspected secondary to steroids. S/P COPD exacerbation treatment Chronic pain Impression: Chronic spinal degenerative changes; s/p prior surgery CT imaging of spine without recent acute changes suggestive of reason for RUE shaking intermittently -Recommend outpatient follow-up -Continue home pain control Folliculitis -Will try Doxycycline -Discussed with patient that if abscess formation, may require I+D RLS- Requip hold as of June 01, 2018 due to side effect DVT prophylaxis-Eliquis (2) GI bleed Qualifiers: GI bleed type/associated pathology: unspecified gastrointestinal hemorrhage type Qualified Code(s): K92.2 - Gastrointestinal hemorrhage, unspecified (3) Anemia Qualifiers: Anemia type: unspecified type Qualified Code(s): D64.9 - Anemia, unspecified (4) Syncope Qualifiers: Syncope type: unspecified Qualified Code(s): R55 - Syncope and collapse
--- NOTE | 2018-06-03 16:29 | P.PNGI ---
Subjective Interval history: Patient is sleeping resting comfortable, no obvious nausea vomiting or complaints of abdominal pain Appears to be more stable from a GI standpoint status post EGD colonoscopy on 05/31/2018 current hemoglobin stable at 9.3 <Sydnie Dorado - Last Filed: 06/03/18 16:27> Physical Exam Vital signs: Vital Signs 06/02/18 20:00 06/02/18 23:05 Temperature 97.9 F 97.4 F L Pulse Rate 72 65 Respiratory Rate 19 19 Blood Pressure 163/65 H 133/68 Pulse Oximetry 99 96 Intake & Output 06/02/18 06/03/18 06/03/18 18:59 06:59 18:59 Intake Total 650 / 650 480 / 480 Balance 650 / 650 480 / 480 Weight 146 kg Intake: Oral 650 / 650 480 / 480 Other: # Voids 4 3 Date of Last Bowel Movement 06/02/18 06/02/18 # Bowel Movements 2 0 - Constitutional no acute distress, morbidly obese - Routine HEENT Exam ENT: Present: mucous membranes moist - Routine Respiratory Exam Present: accessory muscle use (No obvious shortness of breath) - Routine Abdominal Exam Present: soft (Round, obese, soft bowel sounds) <Sydnie Dorado - Last Filed: 06/03/18 16:27> Vital signs: Vital Signs 06/02/18 23:05 06/03/18 16:00 Temperature 97.4 F L 98.2 F Pulse Rate 65 63 Respiratory Rate 19 20 Blood Pressure 133/68 130/60 Pulse Oximetry 96 97 Intake & Output 06/03/18 06/03/18 06/04/18 06:59 18:59 06:59 Intake Total 480 / 480 3300 / 3300 Balance 480 / 480 3300 / 3300 Weight 146 kg Intake: Oral 480 / 480 3300 / 3300 Other: # Voids 3 3 Date of Last Bowel Movement 06/02/18 # Bowel Movements 0 1 <Eugenia Cohen - Last Filed: 06/03/18 21:35> Results - Labs CBC & Chem 7: 06/02/18 09:15 06/02/18 09:15 Laboratory Results - last 24 hr 06/02/18 06/02/18 06/03/18 18:06 21:02 03:17 POC Glucose 218 H 241 H 63 L 06/03/18 06/03/18 06/03/18 04:49 08:26 11:42 POC Glucose 89 166 H 100 <Sydnie Dorado - Last Filed: 06/03/18 16:27> - Labs CBC & Chem 7: 06/02/18 09:15 06/02/18 09:15 Laboratory Results - last 24 hr 06/03/18 06/03/18 06/03/18 03:17 04:49 08:26 POC Glucose 63 L 89 166 H 06/03/18 06/03/18 06/03/18 11:42 16:40 20:28 POC Glucose 100 171 H 251 H <Eugenia Cohen - Last Filed: 06/03/18 21:35> Assessment and Plan (1) GI bleed Status: Acute Code(s): K92.2 - Gastrointestinal hemorrhage, unspecified (2) Anemia Status: Acute Code(s): D64.9 - Anemia, unspecified - Plan 67-year-old overweight male comes into the hospital on 05/12/2018 with symptomatic anemia, melena stools, GI bleed, and falls, syncopal episodes 3 at home over the past week. Current symptoms have been going on off and on for 2 weeks, aggregating symptoms are probably related to Eliquis and Plavix dual anticoagulation for his atrial fib. According to the record patient had positive Hemoccult in the ER setting. Hemoglobin on admission was 7.8 and decreased to 7.4. Patient received 1 unit packed RBCs, PT/INR 1. EGD colonoscopy approximately [address] Harper possible history of polyps and patient notes previous colon resection but unknown timing. Patient denies history of colon cancer but states polyp removed? Eliquis and Plavix are on hold for 05/13/2018. Gastroenterology has been consulted to assist with his care and evaluate his symptoms. EGD colonoscopy has been discussed with patient. When entered the room patient had been given GoLYTELY per hospitalist on admission to drink throughout the evening but patient denies any bowel movement he has drank approximately 60% of the GoLYTELY, but states he will not drink anymore. 05/15/2018 patient's currently resting in the bed awake and alert with some mild anxiety. 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 Results were discussed again with patient and the findings and recommendations. Capsule endoscopy if patient continues to have problems with anemia and unstable hemoglobin patient states he has already had this procedure before. Repeat colonoscopy in one year. Current hemoglobin is 8.5 mildly decreased and WBC count 17.3. Patient continues to complain today of right lower quadrant and right-sided abdominal pain which he states started post colonoscopy yesterday he states the pain does wax and wane but does have a sharp consistency at times. Patient states no bowel movement since colonoscopy prep which is only been 24-30 hours. Family member on the phone discussed again findings of EGD/colonoscopy in the need to have patient evaluated for his Eliquis and Plavix related to his GI bleeds and findings. Patient is high risk for bleeds especially with dual anticoagulant therapy. CT scan without contrast ordered for today to evaluate new abdominal pain and to rule out any new issues. According to the record patient is back on his Plavix dose today. 05/16/18 Pt is resting in bed, still with RLQ pain, had some nausea and vomiting last night, no bleeding reported. Endorses constipation. He had multiple syncopal episodes yesterday and currently being worked up for this, cardiology, pulmonology and neurology consulted hgb is improving. Abdomen/Pelvis CT 05/15/18 1. Eventration of the right hemidiaphragm 2. Moderate gaseous distention of the hepatic flexure in the right upper quadrant with a component of this sitting anterior to the liver 3. Gallbladder surgically absent 4. Previous transpedicular lumbar fixation. 05/27/2018, GI was reconsulted because patient had some red blood noted and liquid diarrhea stools over the past 24 hours. Initial stool was large diarrhea with obvious red blood, second stool was a smaller amount but still noticeable red blood. Patient hemoglobin is currently 9, PT/INR 1, WBC count normalized at 9. C. difficile negative. 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 Patient was placed back on Plavix and Eliquis due to his cardiovascular disease and coronary artery disease. Dual management with anticoagulation makes patient very high risk for further GI bleeds. Need further discussion and reconsult with cardiology for holding blood thinners and any further GI procedures that need to be done. Currently we will observe for any further bleeding. Discussed with patient and his . According to staff patient is planning [place] [facility] very soon. GI can follow but understand patient may need procedure for GI bleed in the near future. ' 05/28/2018 current hemoglobin 8.3, mild decrease from 9. over the past 24 hours. Patient is day 2 hold off Plavix and Eliquis. No BM today but patient states still having rectal bleeding but then will state he does not know. Discussion with cardiology today, Dr. Lopez, who also states patient is high risk without anticoagulant on board. Recommendations include Plavix and aspirin or Plavix and Eliquis. Patient appears to be asymptomatic this a.m. discussed with patient bowel regimen and no straining. Patient is also on iron supplements which may discolor the stool. Discussed with patient again evaluation of colonoscopy for any further bleeding since patient's hemoglobin has declined. Patient is very worried and upset right now secondary to his is currently in the emergency room with possible [place]. Went with Dr. Guzmán in the room to discuss patient's pros and cons with not restarting his blood thinner for 24 hours and hold off on any further procedures. He currently is requesting to hold all blood thinners and procedures for 24 hours. 05/29/2018 initially attempted to give bowel prep this a.m. for patient to have colonoscopy today but patient was unable to tolerate prep. Patient initially had put any testing on hold last p.m. but now has decided that he will resume GI procedures, currently anticoagulants on hold for GI test. Plan now is for EGD colonoscopy in a.m., will continue to monitor hemoglobin which seems to be leveled at 8.3 and 8.5. Encourage patient to monitor stools for any bright red rectal bleeding, and no straining 06/03/2018 patient is resting in the room and appears comfortable currently asymptomatic of any nausea vomiting or abdominal pain hemoglobin is stable at 9.3 patient is status post EGD colonoscopy on 05 31 which did show esophagitis, gastritis, and gastric polyp. Patient should be able to transition to rehab from a GI perspective and follow-up on an outpatient basis. GI will sign off for now please reconsult for any needs Patient was seen per myself and Dr. Cohen, this note was written on his behalf <Sydnie Dorado - Last Filed: 06/03/18 16:27> (1) GI bleed Status: Acute Code(s): K92.2 - Gastrointestinal hemorrhage, unspecified (2) Anemia Status: Acute Code(s): D64.9 - Anemia, unspecified - Attending Attestation As above, stable from GI point of view. Please reconsult if needed again. <Eugenia Cohen - Last Filed: 06/03/18 21:35> <Sydnie Dorado M - Last Filed: 06/03/18 16:27> (1) GI bleed Qualifiers: GI bleed type/associated pathology: unspecified gastrointestinal hemorrhage type Qualified Code(s): K92.2 - Gastrointestinal hemorrhage, unspecified (2) Anemia Qualifiers: Anemia type: unspecified type Qualified Code(s): D64.9 - Anemia, unspecified <Eugenia Cohen A - Last Filed: 06/03/18 21:35> (1) GI bleed Qualifiers: GI bleed type/associated pathology: unspecified gastrointestinal hemorrhage type Qualified Code(s): K92.2 - Gastrointestinal hemorrhage, unspecified (2) Anemia Qualifiers: Anemia type: unspecified type Qualified Code(s): D64.9 - Anemia, unspecified
[2018-06-04] MEDS: Insulin NovoLOG Aspart Correctional Sugar Inj SQ SCH ×5 (03:05→20:27)
--- NOTE | 2018-06-04 08:05 | P.PNIM ---
Subjective Interval history: 67 year male with past medical history of CAD, CHF, insulin dependent diabetes, and A. fib admitted for an acute GI bleed and anemia. Patient on admission had a hemoglobin of 7.8 status post 1 unit of PRBCs with most recent hemoglobin of 9.3, patient is status post EGD/colonoscopy on 05/31 showing esophagitis, gastric polyps, AVM's and diverticulosis. Patient on admission was also having syncopal episodes which have now improved with decrease of BP meds, patient has been undergoing PT with some improvement of ambulation. Patient was on Eliquis and Plavix prior to admission these were held due to GI bleed, they have now been resumed; patient's last Hemoccult was negative on . Patient has no further GI bleed, we are pending cardiology recommendations for continuance of Plavix and Eliquis [facility], we are also pending H&H from this morning to assess hemoglobin Physical Exam Vital signs: Vital Signs 06/03/18 16:00 06/03/18 21:10 06/03/18 23:08 Temperature 98.2 F 98.1 F 98.3 F Pulse Rate 63 68 67 Respiratory Rate 20 18 18 Blood Pressure 130/60 137/65 Pulse Oximetry 97 98 97 06/04/18 03:41 06/04/18 04:29 Temperature 97.3 F L Pulse Rate 61 Respiratory Rate 18 Blood Pressure 169/73 H 144/66 H Pulse Oximetry 99 Intake & Output 06/03/18 06/04/18 06/04/18 18:59 06:59 18:59 Intake Total 3300 / 3300 720 / 720 Balance 3300 / 3300 720 / 720 Weight 146.8 kg Intake: Oral 3300 / 3300 720 / 720 Other: # Voids 3 3 Date of Last Bowel Movement 06/03/18 # Bowel Movements 1 3 Narrative: GENERAL: NAD SKIN: Warm and dry. Left groin area with ~2 cm painful mass; indurated without fluctuance, minimal erythema. HEENT: Normal mucus membranes CARDIOVASCULAR: Regular rate and rhythm, no MRG. RESPIRATORY: CTAx2 GASTROINTESTINAL: Abdomen soft, nontender, + BS MUSCULOSKELETAL: Extremities without significant edema, normal ROM and motor function. Ambulation not assessed NEUROLOGICAL: Awake and alert. Grossly normal CN. Grossly normal peripheral motor/sensory function Results - Labs CBC & Chem 7: 09/09/18 09:15 06/02/18 09:15 Laboratory Results - last 24 hr 06/03/18 06/03/18 06/03/18 08:26 11:42 16:40 POC Glucose 166 H 100 171 H 06/03/18 06/04/18 06/04/18 20:28 00:09 03:00 POC Glucose 251 H 143 H 114 H 06/04/18 07:49 POC Glucose 90 Assessment and Plan - Assessment (1) Generalized weakness Code(s): R53.1 - Weakness Status: Acute (2) GI bleed Code(s): K92.2 - Gastrointestinal hemorrhage, unspecified Status: Resolved (3) Anemia Code(s): D64.9 - Anemia, unspecified Status: Acute (4) Syncope Code(s): R55 - Syncope and collapse Status: Resolved (5) CAD (coronary artery disease) Code(s): I25.10 - Atherosclerotic heart disease of [place] coronary artery without angina pectoris Status: Chronic (6) Paroxysmal A-fib Code(s): I48.0 - Paroxysmal atrial fibrillation Status: Chronic (7) Hypertension Code(s): I10 - Essential (primary) hypertension Status: Chronic (8) Obesity Code(s): E66.9 - Obesity, unspecified Status: Chronic - Plan 67 year male with history of CAD CHF IDDM and A.fib admitted for active GI bleed and anemia due to Eliquis and Plavix use status post EGD and colonoscopy showing esophagitis gastric polyps AVM;s and diverticulosis. Patient was having syncopal episodes that have now resolved, plan for discharge to [facility], patient last hemoglobin was 9.3 from 7.8 on admission status post 1 unit PRBCs pending cardiology recommendations for anticoagulation prior to discharge, HD#24 1. Syncope, resolved: -[facility] report noted sinus rhythm with PAC's, 2D echo showing EF 5560%, Bilateral carotid ultrasound with less than 50% stenosis. Bilateral upper and lower extremity ultrasounds negative for DVT. MRI brain, MRA brain WNL. -Cardiology consulted, echo reassuring, Eliquis and Plavix s/p stent. -Neurology consulted, due to orthostasis, cont. PT, [facility] upon D/C. 2. Symptomatic Anemia/GI bleed, improved: -Hgb 9.3 on 06/02, pending H&H today, s/p 1 unit of PRBC's transfused on admission -Status post EGD with snare polypectomy and colonoscopy with snare polypectomy and fulguration of AVM's 05/14 -EGD/colonscopy 05/31- esophagitis, gastritis, gastric polyp -Gastroenterology consulted; outpatient follow-up recommended -Eliquid & Plavix resumed -Continue Pantoprazole 40mg daily 3. Atrial fibrillation/HTN, chronic: Continue amiodarone/metoprolol 4. CHF/CAD, Status post [place] with stent placement -Continue beta-gunner, diuretics, statin 5. COPD, stable respiratory status currently: -Continue Symbicort and Duonebs 6. Sleep apnea: cont. CPAP 7. IDDM: BS 114, 143, and 251. NovoLog 50 units at ADM, NovoLog 20 units at 8 PM (as requested per ) Novolin N 70units in a.m and 75 units HS, Accu-Cheks , SSI. Continue Glimepiride. 8. Left shoulder rotator cuff injury: negative XR imaging of shoulder; recommended to have continued physical therapy. 9. Chronic pain, chronic spinal degenerative changes, s/p prior surgery: CT imaging of spine without recent acute changes suggestive of reason for RUE shaking intermittently -Recommend outpatient follow-up -Continue home pain control 10. Folliculitis, cont. Doxycycline x7 days with warm compresses, no I&D at this time. 11. RLS- Requip held by neuro as of June 01, 2018 due to side effects. 12. DVT prophylaxis-Eliquis/Plavix 13. DISPO: pending Cardiology reccs and AM H&H (2) GI bleed Qualifiers: GI bleed type/associated pathology: unspecified gastrointestinal hemorrhage type Qualified Code(s): K92.2 - Gastrointestinal hemorrhage, unspecified (3) Anemia Qualifiers: Anemia type: unspecified type Qualified Code(s): D64.9 - Anemia, unspecified (4) Syncope Qualifiers: Syncope type: unspecified Qualified Code(s): R55 - Syncope and collapse
[2018-06-04] MEDS: clonazePAM 0.5 MG Tablet PO SCH ×2 (09:15→20:02)
[2018-06-04] MEDS: Lidocaine 5% Patch T-DERMAL SCH (09:17)
[2018-06-04] MEDS: Ferrous Sulfate 325 MG Tablet PO SCH ×2 (09:18→20:03)
[2018-06-04] MEDS: Metoprolol Tartrate 50 MG Tablet PO SCH ×2 (09:19→20:02)
[2018-06-04] MEDS: Duloxetine 60 MG DR Capsule PO SCH (09:20)
[2018-06-04] MEDS: Glimepiride 2 MG Tablet PO SCH (09:20)
[2018-06-04] MEDS: Senna/Docusate Sodium 8.6/50 MG Tablet PO SCH ×2 (09:20→20:02)
[2018-06-04] MEDS: Furosemide 20 MG Tablet PO SCH (09:20)
[2018-06-04] MEDS: Amiodarone 200 MG Tablet PO SCH (09:20)
[2018-06-04] MEDS: Polyethylene Glycol 3350 17 GM Packet PO SCH (09:26)
[2018-06-04] MEDS: Budesonide-Formoterol 160/4.5 MCG 6 GM Inhaler INH SCH ×2 (09:38→20:04)
[2018-06-04 09:57] LABS: Baso # (Auto) 0.1 th/mm3 (0.0-0.2); Baso % (Auto) 0.6 % (0.0-2.0); Eos # (Auto) 0.1 th/mm3 (0.0-0.4); Eos % (Auto) 0.6 % (0.0-4.0); Hematocrit 32.8 % (39.0-51.0); Lymph # (Auto) 2.1 th/mm3 (1.0-4.8); Lymph % (Auto) 22.6 % (9.0-44.0); Mean Corpuscular Hemoglobin 22.7 pg (27.0-34.0); Mean Corpuscular Volume 74.4 fL (80.0-100.0); Mean Platelet Volume 6.7 fL (7.0-11.0); Mono # (Auto) 0.7 th/mm3 (0.0-0.9); Mono % (Auto) 7.8 % (0.0-8.0); Neut # (Auto) 6.4 th/mm3 (1.8-7.7); Neut % (Auto) 68.4 % (16.0-70.0); Platelet Count 294 th/mm3 (150-450); Red Blood Count 4.41 mil/mm3 (4.50-5.90); Red Cell Distribution Width 22.6 % (11.6-17.2); White Blood Count 9.4 th/mm3 (4.0-11.0)
[2018-06-04 10:01] LABS: Mean Corpuscular HGB Conc 30.5 % (32.0-36.0)
[2018-06-04 10:28] LABS: Calcium 8.6 mg/dL (8.5-10.1); Carbon Dioxide 25.9 meq/L (21.0-32.0); Potassium 3.6 meq/L (3.5-5.1)
--- NOTE | 2018-06-04 20:15 | P.DS ---
Date of admission: 05/12/18 21:39 Primary care physician: Frederick Jean Attending physician on discharge: Jazlyn Mcnulty Anticipated date of discharge: 06/04/18 Brief History from admission: 67 year old male with history of CAD s/p stent, CHF, IDDM, and A.fib admitted for active GI bleed and anemia due to Eliquis and Plavix for CAD. Patient had an EGD and colonoscopy showing esophagitis, gastric polyps, AVM's and diverticulosis and is now s/p surgery. Patient update on day of discharge: GI bleed resolved, cont. eliquis and Plavix due to cardia hx per cards reccs, cont. IP rehab for deconditioning post-op DS: Diagnosis - Discharge Diagnosis (1) Generalized weakness Status: Acute (2) GI bleed Status: Resolved (3) Anemia Status: Acute (4) Syncope Status: Resolved (5) CAD (coronary artery disease) Status: Chronic (6) Paroxysmal A-fib Status: Chronic (7) Hypertension Status: Chronic (8) Obesity Status: Chronic DS: Summary Hospital Course: 1. Syncope, resolved: -[facility] report noted sinus rhythm with PAC's, 2D echo showing EF 5560%, Bilateral carotid ultrasound with less than 50% stenosis. Bilateral upper and lower extremity ultrasounds negative for DVT. MRI brain, MRA brain WNL. -Cardiology consulted, echo reassuring, Eliquis and Plavix s/p stent. -Neurology consulted, due to orthostasis, cont. PT, [facility] upon D/C. 2. Symptomatic Anemia/GI bleed, improved: -Hgb 10 from 9.3 on 06/03, s/p 1 unit of PRBC's transfused on admission -Status post EGD with snare polypectomy and colonoscopy with snare polypectomy and fulguration of AVM's 05/14 -EGD/colonscopy 05/31- esophagitis, gastritis, gastric polyp -Gastroenterology consulted; outpatient follow-up recommended -Eliquis & Plavix resumed per Cards reccs -Continue Pantoprazole 40mg daily 3. CHF/CAD, Status post [place] with stent placement -Continue beta-gunner, diuretics, statin, and plavix/eliquis 4. Left shoulder rotator cuff injury: negative XR imaging of shoulder; recommended to have continued physical therapy. 5. Chronic pain, chronic spinal degenerative changes, s/p prior surgery: CT imaging of spine without recent acute changes suggestive of reason for RUE shaking intermittently -Recommend outpatient follow-up -Continue home pain control 6. Folliculitis, cont. Doxycycline x7 days with warm compresses, no I&D at this time. 7. RLS- Requip held by neuro as of June 01, 2018 due to side effects. - Time Spent with Patient Total time spent providing and/or coordinating discharge services: Greater than 30 minutes - Quality: AMI Clinical Trial Participant: No - Quality: VTE Deep Vein Thrombosis/Pulmonary Embolism Present on Admission: No Exam Vital signs: Vital Signs 06/03/18 21:10 06/03/18 23:08 06/04/18 03:41 Temperature 98.1 F 98.3 F 97.3 F L Pulse Rate 68 67 61 Respiratory Rate 18 18 Blood Pressure 137/65 169/73 H Pulse Oximetry 98 97 99 06/04/18 04:29 06/04/18 08:00 06/04/18 11:00 Temperature 97.9 F Pulse Rate 64 72 Respiratory Rate 22 Blood Pressure 144/66 H 157/70 H 140/82 Pulse Oximetry 94 L 06/04/18 12:00 06/04/18 16:00 Temperature 98.1 F 98.6 F Pulse Rate 66 70 Respiratory Rate 22 20 Blood Pressure 151/65 H 164/72 H Pulse Oximetry 95 17 L Intake & Output 06/04/18 06/04/18 06/05/18 06:59 18:59 06:59 Intake Total 720 / 720 520 / 520 Balance 720 / 720 520 / 520 Weight 146.8 kg Intake: Oral 720 / 720 520 / 520 Other: # Voids 3 4 Date of Last Bowel Movement 06/03/18 # Bowel Movements 3 1 Results Procedures completed during hospitalization: -Status post EGD with snare polypectomy and colonoscopy with snare polypectomy and fulguration of AVM's 05/14 -EGD/colonscopy on 05/31- esophagitis, gastritis, gastric polyps Completed studies during hospitalization: Pending at discharge 05/14/18 07:36 Surgical [PTH] Routine 05/30/18 14:50 Surgical [PTH] Routine Labs on day of discharge: Labs from last 24 hours 06/04/18 06/04/18 06/04/18 16:39 11:58 08:47 WBC RBC Hgb Hct MCV MCH MCHC RDW Plt Count MPV Neut % (Auto) Lymph % (Auto) [place] % (Auto) Eos % (Auto) Baso % (Auto) Neut # (Auto) Lymph # (Auto) [place] # (Auto) Eos # (Auto) Baso # (Auto) WBC Differential Differential Comment Sodium 142 Potassium 3.6 Chloride 107 Carbon Dioxide 25.9 Anion Gap 9 BUN 7 Creatinine 1.13 Estimated GFR 65 L POC Glucose 137 H 188 H Random Glucose 103 Calcium 8.6 06/04/18 06/04/18 06/04/18 08:47 07:49 03:00 WBC 9.4 RBC 4.41 L Hgb 10.0 L Hct 32.8 L MCV 74.4 L MCH 22.7 L MCHC 30.5 L RDW 22.6 H Plt Count 294 MPV 6.7 L Neut % (Auto) 68.4 Lymph % (Auto) 22.6 [place] % (Auto) 7.8 Eos % (Auto) 0.6 Baso % (Auto) 0.6 Neut # (Auto) 6.4 Lymph # (Auto) 2.1 [place] # (Auto) 0.7 Eos # (Auto) 0.1 Baso # (Auto) 0.1 WBC Differential . Differential Comment Auto diff final Sodium Potassium Chloride Carbon Dioxide Anion Gap BUN Creatinine Estimated GFR POC Glucose 90 114 H Random Glucose Calcium 06/04/18 06/03/18 00:09 20:28 WBC RBC Hgb Hct MCV MCH MCHC RDW Plt Count MPV Neut % (Auto) Lymph % (Auto) [place] % (Auto) Eos % (Auto) Baso % (Auto) Neut # (Auto) Lymph # (Auto) [place] # (Auto) Eos # (Auto) Baso # (Auto) WBC Differential Differential Comment Sodium Potassium Chloride Carbon Dioxide Anion Gap BUN Creatinine Estimated GFR POC Glucose 143 H 251 H Random Glucose Calcium - Impressions ITS Impressions Forearm X-Ray 05/12/18 19:09 CONCLUSION: No evidence of recent bony injury. Hand X-Ray 05/12/18 19:09 CONCLUSION: No evidence of recent bony injury. No significant arthropathy. Humerus X-Ray 05/12/18 19:09 CONCLUSION: No evidence of recent bony injury. Carotid Doppler Study 05/13/18 00:00 CONCLUSION: 1. Right Internal Carotid Artery: Findings indicate <50% stenosis. 2. Left Internal Carotid Artery: Findings indicate <50% stenosis. Abdomen/Pelvis CT 05/15/18 00:00 CONCLUSION: 1. Eventration of the right hemidiaphragm 2. Moderate gaseous distention of the hepatic flexure in the right upper quadrant with a component of this sitting anterior to the liver 3. Gallbladder surgically absent 4. Previous transpedicular lumbar fixation. Shoulder X-Ray 05/15/18 00:00 CONCLUSION: No acute left shoulder abnormality is identified. There is mild osteoarthritis at the acromioclavicular joint. Abdomen X-Ray 05/16/18 00:00 CONCLUSION: No disproportionate dilated loops of small or large bowel. Limited quality exam. Head CT 05/16/18 00:00 CONCLUSION: 1. No acute findings in the brain. . Venous Doppler Study 05/16/18 00:00 CONCLUSION: 1. The study is negative for bilateral lower extremity deep venous thrombosis. Chest CT 05/16/18 13:09 CONCLUSION: Stable CT appearance of the chest. Minimal parenchymal opacity at the left base. Cervical Spine CT 05/17/18 00:00 CONCLUSION: 1. No acute findings in the cervical spine. The bony spinal canal is normal in size. 2. Advanced degenerative changes at the endplates and facet joints, similar to recent CT. Thoracic Spine CT 05/17/18 00:00 CONCLUSION: 1. Vertebral bodies of the thoracic spine are intact without focal bony destruction. The bony spinal canal is intact. Exam. Pulmonary Perfusion Imaging 05/25/18 00:00 CONCLUSION: 1. Solitary matched defect on the left which is indeterminant probability for pulmonary embolus. Chest X-Ray 05/25/18 06:00 CONCLUSION: Cardiomegaly. Clear lungs. Head MRI 05/31/18 00:00 CONCLUSION: 1. Negative for acute process. 2. Minimal periventricular white matter changes 3. With mild empty sella without ballooning of the sella turcica. Head MRA 05/31/18 00:00 CONCLUSION: 1. Negative MRA [place] ([place]) non contrast. Neck MRA 05/31/18 00:00 CONCLUSION: 1. Limited exam because of body habitus. I do not see evidence for hemodynamically significant stenosis. Previous ultrasound dated 05/13/2018 had showed no significant stenosis as well. 2. Both vertebral arteries are patent. _ Percent stenosis is calculated using the diameter of the stenotic region over the diameter of the normal distal internal carotid artery _ Discharge Plan - Discharge Disposition Patient Disposition: [facility] Inpatient - Discharge Condition Condition: Fair - Discharge Order Discharge Orders: Discharge Order (Routine); Ordered 06/04/18 Ordered By: Jazlyn Mcnulty Cardiology Clear for Discharge (Routine); Ordered 06/04/18 Ordered By: Fede Ellsworth - Physicians Team Primary Care Provider: Frederick Jean Attending Provider: Yessy Cavanaugh Other Providers: Lee Guardado MD ; Fede Ellsworth, DO ; Segundo Nichols MD, PhD ; Clare Kim MD ; Priyank Conner MD ; Adama Oquendo MD ; [facility] ; Eugenia Cohen MD ; July Ibarra MD
[2018-06-04 21:19] VITALS: RESP 18
[2018-06-05] MEDS: Insulin NovoLOG Aspart Correctional Sugar Inj SQ SCH (03:30)
[2018-06-05 05:05] VITALS: BP 154/68; PULSE 68; TEMP 97.7; O2SAT 95
[2018-06-05 05:35] LABS: Baso # (Auto) 0.1 th/mm3 (0.0-0.2); Baso % (Auto) 0.8 % (0.0-2.0); Eos # (Auto) 0.1 th/mm3 (0.0-0.4); Eos % (Auto) 0.7 % (0.0-4.0); Hematocrit 31.2 % (39.0-51.0); Hemoglobin 9.5 gm/dL (13.0-17.0); Lymph % (Auto) 20.8 % (9.0-44.0); Mean Corpuscular Volume 75.8 fL (80.0-100.0); Mean Platelet Volume 6.9 fL (7.0-11.0); Mono # (Auto) 0.8 th/mm3 (0.0-0.9); Mono % (Auto) 8.6 % (0.0-8.0); Neut # (Auto) 6.6 th/mm3 (1.8-7.7); Neut % (Auto) 69.1 % (16.0-70.0); Platelet Count 250 th/mm3 (150-450); Red Blood Count 4.12 mil/mm3 (4.50-5.90); Red Cell Distribution Width 22.7 % (11.6-17.2); White Blood Count 9.6 th/mm3 (4.0-11.0)
[2018-06-05 05:37] LABS: Mean Corpuscular HGB Conc 30.3 % (32.0-36.0)
[2018-06-05 06:00] LABS: Alanine Aminotransferase 42 U/L (12-78); Albumin 3.2 g/dL (3.4-5.0); Anion Gap 10 meq/L (5-15); Aspartate Aminotransferase 14 U/L (15-37); Blood Urea Nitrogen 8 mg/dL (7-18); Calcium 8.5 mg/dL (8.5-10.1); Carbon Dioxide 28.3 meq/L (21.0-32.0); Chloride 107 meq/L (98-107); Glomerular Filtration Rate 74 mL/min (>89); Glucose,Random 97 mg/dL (74-106); Potassium 3.4 meq/L (3.5-5.1); Sodium 145 meq/L (136-145)
[2018-06-05 06:02] LABS: Alkaline Phosphatase 61 U/L (45-117); Total Protein 6.2 g/dL (6.4-8.2)
[2018-06-05] MEDS: Ferrous Sulfate 325 MG Tablet PO SCH (08:11)
[2018-06-05] MEDS: Metoprolol Tartrate 50 MG Tablet PO SCH (08:11)
[2018-06-05] MEDS: Furosemide 20 MG Tablet PO SCH (08:11)
[2018-06-05] MEDS: Senna/Docusate Sodium 8.6/50 MG Tablet PO SCH (08:11)
[2018-06-05] MEDS: Amiodarone 200 MG Tablet PO SCH (08:12)
[2018-06-05] MEDS: Glimepiride 2 MG Tablet PO SCH (08:12)
[2018-06-05] MEDS: clonazePAM 0.5 MG Tablet PO SCH (08:12)
[2018-06-05] MEDS: Duloxetine 60 MG DR Capsule PO SCH (08:13)
== END 2018-06-05 08:49 ==
LOC: NEPC 18:53 → NEDA 21:39 → N06 23:50
PROVIDERS: ADMIT Hospitalist; ATTEND Hospitalist
PROC: COLONOS (2018-05-14 14:16)
PROC: PANENDO (2018-05-14 14:16)

== ENCOUNTER 2018-08-03 20:59 | Observation (INO) ==
--- NOTE | 2018-08-03 22:35 | XR ---
EXAM DATE: 08/03/2018 10:29 PM EST AGE/SEX: 67 years / Male INDICATIONS: Shortness of breath. CLINICAL DATA: This is the patient's initial encounter. Patient reports that signs and symptoms have been present for 1 day and indicates a pain score of 0/10. MEDICAL/SURGICAL HISTORY: Hypertension. Diabetes. Chronic obstructive pulmonary disease. Dionte nary artery stent. COMPARISON: [facility], CTA PULMONARY W CONTRAST W 3D, 06/23/2018. . FINDINGS: A single AP view of the chest demonstrates the lungs to be symmetrically aerated without evidence of mass, infiltrate or effusion. The cardiomediastinal contours are unremarkable. Osseous structures a re intact. CONCLUSION: No acute cardiopulmonary disease demonstrated. Electronically signed by: Priyank Tang MD 08/03/2018 10:33 PM EST
--- NOTE | 2018-08-03 22:46 | ED ---
HPI General Chief Complaint: Syncope Stated Complaint: 3 tremors R side this evening Time Seen by Provider: 08/03/18 21:44 Source: patient and family () Mode of arrival: wheelchair Limitations: no limitations History of Present Illness HPI narrative: 67-year-old male who uses wheelchair for ambulation was brought to the emergency room by his for 3 separate episodes of loss of consciousness with some shaking mostly of his left upper extremity while sitting on the wheelchair. The says that he has had these episodes occurring once a week or so for past 3-4 months. In fact he was hospitalized for almost a month starting from April until May for this where he was evaluated by neurology followed by rehab. Nothing substantial was discovered at that time and patient was eventually discharged home. However since then he has been quite weak and shaky on his legs and after walking for a few feet passes out. Hence he has required wheelchair since then. What was different about today's event was that they were 3 and just 1 day. The second 1 was while he was in a grocery store. The store staff called 911 and EMS came and evaluated the patient. However he wanted to go home at that time and they released him. At home his says that he had another episode. He becomes unresponsive and it lasts for about 3 minutes. She was concerned about the frequency and hence brought him in. Patient has history of diabetes and high blood pressure and has been taking medication like he is supposed to. He also has history of coronary artery disease and A. fib. He is on Eliquis. He denies of some vague chest discomfort that has been on and off for past 1 day. No radiation of the pain. No aggravating or relieving symptoms identified. His blood sugar in triage was 178. He also has history of sleep apnea and requires CPAP at night. complaint: Reports felt faint and other (shaking while in wheel chair) Onset (ago): minute(s) -: minutes(s) Description of event: Reports focal shaking Prodromal symptoms: Reports none Witnessed: yes - by other () Context: Reports at rest Injuries sustained associated with event: Reports none Current symptoms: Reports back to baseline History: Reports other (Similar episodes in the past with extensive workup including EEG and cardiac workup all been negative.) Related Data Home Medications Medication Instructions Recorded Confirmed insulin regular human 1 sliding scale dose SUBCUT UD 08/03/18 08/03/18 insulin regular human See Label Instructions .ROUTE 08/03/18 08/03/18 .COMPLEX insulin regular human See Label Instructions .ROUTE 08/03/18 08/03/18 .COMPLEX pantoprazole [Protonix] 40 mg PO DAILY 08/03/18 08/03/18 Previous Rx's Medication Instructions Recorded acetaminophen 650 mg PO Q4H PRN #100 tab 06/18/18 amiodarone 200 mg PO DAILY #30 tab 06/18/18 apixaban [Eliquis] 5 mg PO BID #60 tab 06/18/18 atorvastatin [Lipitor] 10 mg PO HS #30 tab 06/18/18 budesonide-formoterol [Symbicort] 2 puff INH BID #1 inh 06/18/18 clopidogrel [Plavix] 75 mg PO DAILY #30 tab 06/18/18 duloxetine 60 mg PO DAILY #30 tab 06/18/18 furosemide [Lasix] 40 mg PO DAILY #30 tab 06/18/18 gabapentin [Neurontin] 600 mg PO BID #120 cap 06/18/18 glimepiride 2 mg PO QAM #30 tab 06/18/18 isosorbide mononitrate 1 tab PO DAILY #30 tab 06/18/18 losartan 100 mg PO DAILY #30 tab 06/18/18 methyl salicylate-menthol 1 applicatio TOPICAL UNSCH PRN #1 06/18/18 [Analgesic GRX Moran] tube metoprolol tartrate 50 mg PO BID #60 tab 06/18/18 montelukast 10 mg PO QPM #30 tab 06/18/18 potassium chloride 20 meq PO BID #60 tab 06/18/18 sennosides-docusate sodium [Senna 1 tab PO BID #60 tab 06/18/18 Plus] tizanidine [Zanaflex] 4 mg PO HS #30 tab 06/18/18 oxycodone-acetaminophen 1 tab PO Q4H PRN #40 tab 06/19/18 Allergies Allergy/AdvReac Type Severity Reaction Status Date / Time adhesive Allergy Severe Rash Verified 05/12/18 19:12 atorvastatin Allergy Severe MUSCLE Verified 05/12/18 19:12 WEAKNESS pravastatin Allergy Severe MUSCLE Verified 05/12/18 19:12 WEAKNESS rosuvastatin Allergy Severe MUSCLE Verified 05/12/18 19:12 WEAKNESS morphine AdvReac Severe BECOMES Verified 05/12/18 19:12 VERY AGGRESSIVE Review of Systems ROS: all other systems reviewed are negative [facility] Medical History Medical History A-fib (Acute) CAD (coronary artery disease) (Acute) CHF (congestive heart failure) (Acute) Diabetes (Acute) History of COPD (Acute) History of breast cancer (Acute) History of colon cancer (Acute) History of prostate cancer (Acute) Hx of syncope (Acute) Surgical History Surgical History H/O knee surgery (Acute) H/O neck surgery (Acute) H/O prostatectomy (Acute) H/O shoulder surgery (Acute) History of colon resection (Acute) Hx of appendectomy (Acute) Hx of cholecystectomy (Acute) Previous back surgery (Acute) Family History Family History Uncle Diabetes mellitus Mother Ovarian cancer Father Lung cancer Social History Social History Substance History: No History of Abuse Second Hand Smoke Exposure: No Smoking Status: Former smoker Tobacco Type: Cigarettes Packs Per Day: 2.5 Cigarettes Per Day: 50.0 Years Smoked: 45 Pack-Years: 112.50 Number of Pack-Years (if former smoker): 112 How Often Do You Have a Drink Containing Alcohol: Monthly or less Hx Recent Travel: No Recent Travel in [facility] within the Last 8 Weeks: No Recent Out of Country Travel within the Last 8 Weeks: No Immunization History Tetanus Immunization: <5 Years Exam Narrative Exam Narrative: GENERAL: Awake, alert, anxious, morbidly obese, no obvious distress SKIN: Focused skin assessment warm/dry. HEAD: Atraumatic. Normocephalic. EYES: Pupils equal and round. No scleral icterus. No injection or drainage. ENT: No nasal bleeding or discharge. Mucous membranes pink and moist. NECK: Trachea midline. No JVD. CARDIOVASCULAR: Regular rate and rhythm. No murmur appreciated. RESPIRATORY: No accessory muscle use. Clear to auscultation. Breath sounds equal bilaterally. GASTROINTESTINAL: Abdomen soft, non-tender, nondistended. Hepatic and splenic margins not palpable. MUSCULOSKELETAL: No obvious deformities. No clubbing. No cyanosis. No edema. NEUROLOGICAL: Awake and alert. No obvious cranial nerve deficits. Motor grossly within normal limits. Normal speech. PSYCHIATRIC: Appropriate mood and affect; insight and judgment normal. Course Initial Documented Vital Signs Temperature 98.3 F 08/03/18 21:07 Pulse Rate 81 08/03/18 21:07 Respiratory Rate 15 08/03/18 21:07 Blood Pressure 125/76 08/03/18 21:07 Pulse Oximetry 95 08/03/18 21:07 Last Documented Vital Signs Temperature 97.7 F 08/04/18 07:32 Pulse Rate 60 08/04/18 09:00 Respiratory Rate 20 08/04/18 07:32 Blood Pressure 146/63 H 08/04/18 07:32 Pulse Oximetry 94 L 08/04/18 07:32 Medical Decision Making MDM Narrative Medical decision making narrative: 11:36 PM blood test results are back. Patient's creatinine has gone up slightly from his last blood test result. I looked into his extensive past medical history. During his hospitalization the last time he was mainly evaluated by neurology including EEG which was negative. I did not notice any cardiac consultation. My concern is if his events are anyway related to cardiac dysrhythmia. I would like to admit him for observation. I will discuss this with the patient and his . They mentioned that they have been trying to get a referral to [facility] neurology to evaluate this further. Ambulatory oxygen saturation was done. Please refer to the nursing and respiratory note. Apparently patient did have subjective "unresponsive episode" while he was standing. But his oxygen saturation was 97 % on room air. His blood pressure was more than 200 systolic and I have given him a dose of clonidine. His blood sugar was high and more than 350. Have given him 10 units of subcu regular insulin. Medical Screen Exam Complete: Yes Emergency Medical Condition: Yes Lab Data Result diagrams: 08/04/18 04:27 08/04/18 04:27 Lab Results 08/03/18 08/03/18 08/04/18 Range/Units 22:30 22:30 04:27 WBC 10.1 8.8 (4.0-11.0) th/mm3 RBC 5.22 4.91 (4.50-5.90) mil/mm3 Hgb 13.9 13.0 (13.0-17.0) gm/dL Hct 41.7 39.0 (39.0-51.0) % MCV 79.9 L 79.6 L (80.0-100.0) fL MCH 26.6 L 26.4 L (27.0-34.0) pg MCHC 33.3 33.2 (32.0-36.0) % RDW 15.8 15.9 (11.6-17.2) % Plt Count 340 314 (150-450) th/mm3 MPV 7.6 7.0 (7.0-11.0) fL Neut % (Auto) 59.5 52.6 (16.0-70.0) % Lymph % (Auto) 26.5 31.1 (9.0-44.0) % [place] % (Auto) 11.5 H 13.0 H (0.0-8.0) % Eos % (Auto) 1.9 2.3 (0.0-4.0) % Baso % (Auto) 0.6 1.0 (0.0-2.0) % Neut # (Auto) 6.0 4.6 (1.8-7.7) th/mm3 Lymph # (Auto) 2.7 2.7 (1.0-4.8) th/mm3 [place] # (Auto) 1.2 H 1.1 H (0.0-0.9) th/mm3 Eos # (Auto) 0.2 0.2 (0.0-0.4) th/mm3 Baso # (Auto) 0.1 0.1 (0.0-0.2) th/mm3 WBC Differential . . Differential Comment Auto diff final Auto diff final Sodium 136 (136-145) meq/L Potassium 4.0 (3.5-5.1) meq/L Chloride 94 L (98-107) meq/L Carbon Dioxide 32.7 H (21.0-32.0) meq/L Anion Gap 9 (5-15) meq/L BUN 18 (7-18) mg/dL Creatinine 1.36 H (0.60-1.30) mg/dL Estimated GFR 53 L (>89) mL/min Random Glucose 398 H (74-106) mg/dL Calcium 9.3 (8.5-10.1) mg/dL Magnesium (1.5-2.5) mg/dL Total Bilirubin (0.2-1.0) mg/dL AST (15-37) U/L ALT (12-78) U/L Alkaline Phosphatase (45-117) U/L Troponin I Less than 0.02 L (0.02-0.05) ng/mL Total Protein (6.4-8.2) g/dL Albumin (3.4-5.0) g/dL 08/04/18 08/04/18 Range/Units 04:27 04:27 WBC (4.0-11.0) th/mm3 RBC (4.50-5.90) mil/mm3 Hgb (13.0-17.0) gm/dL Hct (39.0-51.0) % MCV (80.0-100.0) fL MCH (27.0-34.0) pg MCHC (32.0-36.0) % RDW (11.6-17.2) % Plt Count (150-450) th/mm3 MPV (7.0-11.0) fL Neut % (Auto) (16.0-70.0) % Lymph % (Auto) (9.0-44.0) % [place] % (Auto) (0.0-8.0) % Eos % (Auto) (0.0-4.0) % Baso % (Auto) (0.0-2.0) % Neut # (Auto) (1.8-7.7) th/mm3 Lymph # (Auto) (1.0-4.8) th/mm3 [place] # (Auto) (0.0-0.9) th/mm3 Eos # (Auto) (0.0-0.4) th/mm3 Baso # (Auto) (0.0-0.2) th/mm3 WBC Differential Differential Comment Sodium 139 (136-145) meq/L Potassium 3.0 L D (3.5-5.1) meq/L Chloride 96 L (98-107) meq/L Carbon Dioxide 33.8 H (21.0-32.0) meq/L Anion Gap 9 (5-15) meq/L BUN 17 (7-18) mg/dL Creatinine 1.17 (0.60-1.30) mg/dL Estimated GFR 63 L (>89) mL/min Random Glucose 197 H D (74-106) mg/dL Calcium 8.9 (8.5-10.1) mg/dL Magnesium 1.9 (1.5-2.5) mg/dL Total Bilirubin 0.2 (0.2-1.0) mg/dL AST 16 (15-37) U/L ALT 31 (12-78) U/L Alkaline Phosphatase 85 (45-117) U/L Troponin I 0.02 (0.02-0.05) ng/mL Total Protein 6.9 (6.4-8.2) g/dL Albumin 3.5 (3.4-5.0) g/dL Imaging Data Radiologist's impression: Chest X-Ray 08/03/18 22:14 CONCLUSION: No acute cardiopulmonary disease demonstrated. ECG Data Attestation: I personally reviewed and interpreted this ECG as follows: Interpretation: Twelve-lead EKG was reviewed by me. Normal sinus rhythm, left axis deviation, questionable old inferior MS, poor R wave progression. Heart rate of 87 bpm. Discharge Plan Discharge Disposition Patient Disposition: 30 Still Patient Discharge Condition Condition: Stable Discharge Order Discharge Orders: Discharge Order (Routine); Ordered 08/04/18 Ordered By: Adeola Mcgrath Physicians Team ED Provider: Michael Spann Primary Care Provider: UNKNOWN, Attending Provider: Abdulaziz Red Other Providers: Segundo Nichols Status ED Status: Left Department Discharge Information Discharge Date/Time: 08/04/18 02:33
[2018-08-03 23:10] LABS: Anion Gap 9 meq/L (5-15); Blood Urea Nitrogen 18 mg/dL (7-18); Calcium 9.3 mg/dL (8.5-10.1); Carbon Dioxide 32.7 meq/L (21.0-32.0); Chloride 94 meq/L (98-107); Glomerular Filtration Rate 53 mL/min (>89); Glucose,Random 398 mg/dL (74-106); Sodium 136 meq/L (136-145)
[2018-08-03 23:21] LABS: Baso # (Auto) 0.1 th/mm3 (0.0-0.2); Baso % (Auto) 0.6 % (0.0-2.0); Eos # (Auto) 0.2 th/mm3 (0.0-0.4); Eos % (Auto) 1.9 % (0.0-4.0); Hematocrit 41.7 % (39.0-51.0); Hemoglobin 13.9 gm/dL (13.0-17.0); Lymph # (Auto) 2.7 th/mm3 (1.0-4.8); Lymph % (Auto) 26.5 % (9.0-44.0); Mean Corpuscular HGB Conc 33.3 % (32.0-36.0); Mean Corpuscular Hemoglobin 26.6 pg (27.0-34.0); Mean Corpuscular Volume 79.9 fL (80.0-100.0); Mean Platelet Volume 7.6 fL (7.0-11.0); Mono # (Auto) 1.2 th/mm3 (0.0-0.9); Mono % (Auto) 11.5 % (0.0-8.0); Neut % (Auto) 59.5 % (16.0-70.0); Platelet Count 340 th/mm3 (150-450); Red Blood Count 5.22 mil/mm3 (4.50-5.90); Red Cell Distribution Width 15.8 % (11.6-17.2); White Blood Count 10.1 th/mm3 (4.0-11.0)
[2018-08-04] MEDS ORDERED: oxyCODONE/Acetaminophen 10/325 Tablet PO PRN (00:03)
[2018-08-04] MEDS ORDERED: Bisacodyl 10 MG Supp RECTAL PRN (00:05)
[2018-08-04] MEDS ORDERED: Acetaminophen 325 MG Tablet PO PRN (00:05)
--- NOTE | 2018-08-04 00:57 | P.HPIM ---
History of Present Illness Primary Care Physician: UNKNOWN History of Present Illness: This is a 67-year-old male with a PMH of HTN, Hyperlipidemia, COPD, CAD s/p Stent, A. fib on Eliquis, CHF (Echo 05/15/18 w/ EF 55-60%), RONAN on CPAP and h/o Syncope who presented to the ER after syncope x3 today. Pt w/ previous admit -06/04/18 for Syncope, thought to be secondary to GI Bleed requiring transfusion, s/p EGD/Colonoscopy w/ esophagitis and AVMs s/p fulguration, restarted on ASA/Plavix and Eliquis after clearance by GI. S/p eval by Neurology for episodes of syncope w/ tremor/ataxia, not thought to be secondary to seizure activity per review or Neurology notes, EEG negative. +orthostatics w/ adjustment in medications. States he has had ongoing episodes of syncope since discharge, several times per month. +Loop recorder in place, following w / Dr. Ellsworth, also pending appt w/ Dr. Nichols as outpatient. Today, pt states him and his had been out all day running errands and he did a lot of walking, later had 3 episodes of syncope. Pt w/ no recollection of events when they occur, denies dizziness/lightheadedness or chest pain. Notes syncopal episodes only occur during ambulation. [facility] has Home PT, unable to walk more than 2min without having syncope. On arrival, BP 181/89, HR percent on RA, Afebrile. CBC unremarkable, hemoglobin 13.9. Chemistry essentially unremarkable except for creatinine 1.36, previously 1.01 on 06/05/2018. Troponin negative. CXR with no acute findings. - Diagnosis (1) Syncope (2) JUNIOR (acute kidney injury) (3) RONAN (obstructive sleep apnea) (4) DM (diabetes mellitus) (5) HTN (hypertension) (6) Afib Review of Systems PAST FAMILY HISTORY: Reviewed. No h/o DM or CAD All other systems reviewed negative except as stated in HPI [facility] - History History Provided By: Patient, Family Member - Medical History Medical History: Medical History (Last Reviewed 08/03/18 @ 23:35 by Michael Spann MD) A-fib CAD (coronary artery disease) CHF (congestive heart failure) Diabetes History of COPD History of breast cancer History of colon cancer History of prostate cancer Hx of syncope - Surgical History Surgical History: Surgical History (Last Reviewed 08/03/18 @ 23:35 by Michael Spann MD) H/O knee surgery H/O neck surgery H/O prostatectomy H/O shoulder surgery History of colon resection Hx of appendectomy Hx of cholecystectomy Previous back surgery - Family History Family History: Family History (Last Reviewed 08/03/18 @ 23:35 by Michael Spann MD) Uncle Diabetes mellitus Mother Ovarian cancer Father Lung cancer - Tobacco History Second Hand Smoke Exposure: No Smoking Status: Former smoker Tobacco Type: Cigarettes Packs Per Day: 2.5 Years Smoked: 45 Number of Pack Years (if former smoker): 112 - Alcohol History How Often Do You Have a Drink Containing Alcohol: Monthly or less - Substance Use History Substance History: No History of Abuse - Travel History History of Recent Travel: No Recent Travel in the [place] Within the Last 8 Weeks: No Recent Travel Out of the Country Within the Last 8 Weeks: No - Immunization History Tetanus Immunization: <5 Years Medications and Allergies Active Medications: Active Medications Acetaminophen (Tylenol) 650 mg PO Q4H PRN PRN Reason: Temp > 100.4 Al Hydroxide/Mg Hydroxide (Milk Of Magnesia Liq) 30 ml PO Q12H PRN PRN Reason: Mild Constipation Amiodarone HCl (Cordarone) 200 mg PO DAILY SHAWN Apixaban (Eliquis) 5 mg PO BID SHAWN Atorvastatin Calcium (Lipitor) 10 mg PO HS SHAWN Bisacodyl (Dulcolax Supp) 10 mg RECTAL DAILY PRN PRN Reason: SEVERE CONSITIPATION Budesonide/Formoterol Fumarate (Symbicort 160/4.5 Mcg Inh) 2 puff INH BID SHAWN Clopidogrel Bisulfate (Plavix) 75 mg PO DAILY SHAWN Duloxetine HCl (Cymbalta) 60 mg PO DAILY SHAWN Furosemide (Lasix) 40 mg PO DAILY SHAWN Gabapentin (Neurontin) 600 mg PO BID SHAWN Isosorbide Mononitrate (Imdur) 30 mg PO DAILY SHAWN Lactulose (Lactulose Liq) 30 ml PO DAILY PRN PRN Reason: SEVERE CONSITIPATION Metoprolol Tartrate (Lopressor) 50 mg PO BID SHAWN Montelukast Sodium (Singulair) 10 mg PO QPM SHAWN Ondansetron HCl (Zofran Inj) 4 mg IV.PUSH Q6H PRN PRN Reason: NAUSEA OR VOMITING Oxycodone/Acetaminophen (Percocet 10/325 Mg) 1 tab PO Q4H PRN PRN Reason: Pain 3-10 Pantoprazole Sodium (Protonix) 40 mg PO DAILY [facility] Senna/Docusate Sodium (Danielle-Colace) 1 tab PO BID [facility] Sennosides (Senokot) 17.2 mg PO Q12H PRN PRN Reason: Moderate Constipation Allergies Allergy/AdvReac Type Severity Reaction Status Date / Time adhesive Allergy Severe Rash Verified 05/12/18 19:12 atorvastatin Allergy Severe MUSCLE Verified 05/12/18 19:12 WEAKNESS pravastatin Allergy Severe MUSCLE Verified 05/12/18 19:12 WEAKNESS rosuvastatin Allergy Severe MUSCLE Verified 05/12/18 19:12 WEAKNESS morphine AdvReac Severe BECOMES Verified 05/12/18 19:12 VERY AGGRESSIVE Home Medications Medication Instructions Recorded Confirmed Type insulin regular human 1 sliding scale dose SUBCUT UD 08/03/18 08/03/18 History insulin regular human See Label Instructions .ROUTE 08/03/18 08/03/18 History .COMPLEX insulin regular human See Label Instructions .ROUTE 08/03/18 08/03/18 History .COMPLEX pantoprazole [Protonix] 40 mg PO DAILY 08/03/18 08/03/18 History Exam Vital signs: Vital Signs 08/03/18 21:07 08/03/18 21:27 08/03/18 22:22 Temperature 98.3 F Pulse Rate 81 89 Respiratory Rate 15 17 Blood Pressure 125/76 181/89 H Pulse Oximetry 95 96 Pulse Oximetry [Exertion on Room Air] 98 Pulse Oximetry [Resting on Room Air] 96 08/03/18 23:41 Temperature Pulse Rate 88 Respiratory Rate 20 Blood Pressure 168/68 H Pulse Oximetry 98 Pulse Oximetry [Exertion on Room Air] Pulse Oximetry [Resting on Room Air] Intake & Output 08/03/18 08/03/18 08/04/18 06:59 18:59 06:59 Weight 151.953 kg Narrative: PE: GENERAL: Very pleasant morbidly obese white male in no acute distress. SKIN: Focused skin assessment warm and dry. HEENT: PERRLA, EOMI. No scleral icterus or conjunctival pallor. No lid lag or facial droop. CARDIOVASCULAR: Regular rate and rhythm. No obvious murmurs to auscultation. No chest tenderness to palpation. RESPIRATORY: No obvious rhonchi or wheezing. Clear to auscultation. Breath sounds equal bilaterally. GASTROINTESTINAL: Abdomen soft, non-tender, nondistended. BS normal. MUSCULOSKELETAL: Extremities without clubbing, cyanosis, or edema. No obvious deformities. NEUROLOGICAL: Awake, alert and oriented x4. No focal neurologic deficits. Moving both upper and lower extremities spontaneously. PSYCHIATRIC: Appropriate mood and affect. Insight and judgment normal. Results - Labs CBC & Chem 7: 08/03/18 22:30 08/03/18 22:30 Labs: Short CBC 08/03/18 Range/Units 22:30 WBC 10.1 (4.0-11.0) th/mm3 Hgb 13.9 (13.0-17.0) gm/dL Hct 41.7 (39.0-51.0) % Plt Count 340 (150-450) th/mm3 BMP 08/03/18 22:30 Sodium 136 Potassium 4.0 Chloride 94 L Carbon Dioxide 32.7 H BUN 18 Creatinine 1.36 H Calcium 9.3 Cardiac Enzymes 08/03/18 Range/Units 22:30 Troponin I Less than 0.02 L (0.02-0.05) ng/mL - Imaging Impressions Chest X-Ray 08/03/18 22:14 CONCLUSION: No acute cardiopulmonary disease demonstrated. Caprini VTE Risk Assessment Caprini VTE Risk Assessment: Moderate/High Risk (score >= 2) Caprini Risk Assessment Model: Point Value = 1 Point Value = 2 Point Value = 3 Point Value = 5 Age 41-60 Minor surgery BMI > 25 kg/m2 Swollen legs Varicose veins or History of unexplained or recurrent spontaneous Oral contraceptives or hormone replacement Sepsis (< 1 month) Serious lung disease, including pneumonia (< 1 month) Abnormal pulmonary function Acute myocardial infarction Congestive heart failure (< 1 month) History of inflammatory bowel disease Medical patient at bed rest Age 61-74 Arthroscopic surgery Major open surgery (> 45 min) Laparoscopic surgery (> 45 min) Malignancy Confined to bed (> 72 hours) Immobilizing plaster cast Central venous access Age >= 75 History of VTE Family history of VTE Factor V Leiden Prothrombin [id number] Lupus anticoagulant Anticardiolipin antibodies Elevated serum homocysteine Heparin-induced thrombocytopenia Other congenital or acquired thrombophilia Stroke (< 1 month) Elective arthroplasty Hip, pelvis, or leg fracture Acute spinal cord injury (< 1 month) Prophylaxis Regimen: Total Risk Factor Score Risk Level Prophylaxis Regimen 0-1 Low Early ambulation 2 Moderate Order ONE of the following: *Sequential Compression Device (SCD) *Heparin 5000 units SQ BID 3-4 Higher Order ONE of the following medications: *Heparin 5000 units SQ TID *Enoxaparin/Lovenox 40 mg SQ daily (WT < 150 kg, CrCl > 30 mL/min) *Enoxaparin/Lovenox 30 mg SQ daily (WT < 150 kg, CrCl > 10-29 mL/min) *Enoxaparin/Lovenox 30 mg SQ BID (WT < 150 kg, CrCl > 30 mL/min) AND/OR *Sequential Compression Device (SCD) 5 or more Highest Order ONE of the following medications: *Heparin 5000 units SQ TID (Preferred with Epidurals) *Enoxaparin/Lovenox 40 mg SQ daily (WT < 150 kg, CrCl > 30 mL/min) *Enoxaparin/Lovenox 30 mg SQ daily (WT < 150 kg, CrCl > 10-29 mL/min) *Enoxaparin/Lovenox 30 mg SQ BID (WT < 150 kg, CrCl > 30 mL/min) AND *Sequential Compression Device (SCD) Assessment and Plan - Assessment (1) Syncope Code(s): R55 - Syncope and collapse Status: Resolved (2) JUNIOR (acute kidney injury) Code(s): N17.9 - Acute kidney failure, unspecified Status: Acute (3) RONAN (obstructive sleep apnea) Code(s): G47.33 - Obstructive sleep apnea (adult) (pediatric) Status: Acute (4) DM (diabetes mellitus) Code(s): E11.9 - Type 2 diabetes mellitus without complications Status: Acute (5) HTN (hypertension) Code(s): I10 - Essential (primary) hypertension Status: Acute (6) Afib Code(s): I48.91 - Unspecified atrial fibrillation Status: Acute - Plan A/P: 1. Syncope: Recurrent. Recent admit 05/12-06/04/18, for same, initially thought to be due to GI bleed, however extensive Neuro/Cardiac work up all negative. Echo 05/15/18 w/ EF 55-60%. +Loop Recorder in place, no events per [employer]. CT Head 05/16/18 negative, MRI/MRA Head 05/31/18 negative, Neck MRA negative, Pulm Perfusion indeterminate probability for PE 05/25/18, Bilateral UE Doppler negative for DVT, EEG negative. S/p eval by Dr. Ibarra during admission , episodes thought to be due to orthostasis as they only occur while standing, has upcoming appt w/ Dr. Nichols, will Consult Neurology for further eval/ recommendations. Telemetry. Initial trop negative, check serial cardiac enzymes to eval for possible ischemia. 2. JUNIOR: Creatinine 1.36, previously 1.01 on 06/05/18, check U/a to eval for possible UTI, monitor I/O-caution w/ diuretics, repeat labs in am. 3. HTN: Uncontrolled. BP 200's systolic while in ER, s/p Clonidine, resume home medications, monitor BP, antihypertensives as needed for BP >180 4. A-fib: Chronic. Resume home meds. Continue Eliquis 5. DM: Uncontrolled. BS >300, s/p Insulin, sliding scale w/ Accu-Cheks 6. DVT Prophylaxis: Eliquis 7. Social work for d/c planning as needed 8. Case discussed w/ ER physician at length, labs/records/imaging reviewed by me.
[2018-08-04 04:42] LABS: Baso # (Auto) 0.1 th/mm3 (0.0-0.2); Eos # (Auto) 0.2 th/mm3 (0.0-0.4); Eos % (Auto) 2.3 % (0.0-4.0); Lymph # (Auto) 2.7 th/mm3 (1.0-4.8); Lymph % (Auto) 31.1 % (9.0-44.0); Mean Corpuscular HGB Conc 33.2 % (32.0-36.0); Mean Corpuscular Hemoglobin 26.4 pg (27.0-34.0); Mean Corpuscular Volume 79.6 fL (80.0-100.0); Mono # (Auto) 1.1 th/mm3 (0.0-0.9); Neut # (Auto) 4.6 th/mm3 (1.8-7.7); Neut % (Auto) 52.6 % (16.0-70.0); Platelet Count 314 th/mm3 (150-450); Red Blood Count 4.91 mil/mm3 (4.50-5.90); Red Cell Distribution Width 15.9 % (11.6-17.2); White Blood Count 8.8 th/mm3 (4.0-11.0)
[2018-08-04 05:19] LABS: Alanine Aminotransferase 31 U/L (12-78); Albumin 3.5 g/dL (3.4-5.0); Alkaline Phosphatase 85 U/L (45-117); Anion Gap 9 meq/L (5-15); Aspartate Aminotransferase 16 U/L (15-37); Blood Urea Nitrogen 17 mg/dL (7-18); Calcium 8.9 mg/dL (8.5-10.1); Carbon Dioxide 33.8 meq/L (21.0-32.0); Chloride 96 meq/L (98-107); Glomerular Filtration Rate 63 mL/min (>89); Glucose,Random 197 mg/dL (74-106); Sodium 139 meq/L (136-145); Total Protein 6.9 g/dL (6.4-8.2); Troponin I 0.02 ng/mL (0.02-0.05)
[2018-08-04 07:36] VITALS: BP 146/63; RESP 20; TEMP 97.7; O2SAT 94
[2018-08-04] MEDS ORDERED: Amiodarone 200 MG Tablet PO SCH (09:00)
[2018-08-04] MEDS ORDERED: Gabapentin 300 MG Capsule PO SCH (09:00)
[2018-08-04] MEDS ORDERED: Furosemide 40 MG Tablet PO SCH (09:00)
[2018-08-04] MEDS ORDERED: Duloxetine 60 MG DR Capsule PO SCH (09:00)
[2018-08-04] MEDS ORDERED: Budesonide-Formoterol 160/4.5 MCG 6 GM Inhaler INH SCH (09:00)
[2018-08-04] MEDS ORDERED: Senna/Docusate Sodium 8.6/50 MG Tablet PO SCH (09:00)
[2018-08-04] MEDS ORDERED: Metoprolol Tartrate 50 MG Tablet PO SCH (09:00)
[2018-08-04] MEDS ORDERED: Isosorbide Mononitrate 30 MG ER 24HR Tablet (Imdur) PO SCH (09:00)
--- NOTE | 2018-08-04 10:24 | ECG ---
Date Performed: 08/03/2018 Time Performed: 21:54:44 PTAGE: 67 years EKG: Baseline artifact present Normal Sinus rhythm PATTERN CONSISTENT WITH PULMONARY DISEASE LEFT ANTERIOR FASCICULAR BLOCK NONSPECIFIC T-WAVE ABNORMAL ITY ABNORMAL ECG Compared to prior electrocardiogram, rate has increased . PREVIOUS TRACING : 06/23/2018 13.22 DOCTOR: Luis Germain Interpretating Date/Time 08/04/2018 10:23:44
--- NOTE | 2018-08-04 11:00 | P.DS ---
Date of admission: 08/04/18 00:06 Primary care physician: UNKNOWN Attending physician on discharge: Abdulaziz Red Anticipated date of discharge: 08/04/18 Brief History from admission: This is a 67-year-old male with a PMH of HTN, Hyperlipidemia, COPD, CAD s/p Stent, A. fib on Eliquis, CHF (Echo 05/15/18 w/ EF 55-60%), RONAN on CPAP and h/o Syncope who presented to the ER after syncope x3 today. Pt w/ previous admit -06/04/18 for Syncope, thought to be secondary to GI Bleed requiring transfusion, s/p EGD/Colonoscopy w/ esophagitis and AVMs s/p fulguration, restarted on ASA/Plavix and Eliquis after clearance by GI. S/p eval by Neurology for episodes of syncope w/ tremor/ataxia, not thought to be secondary to seizure activity per review or Neurology notes, EEG negative. +orthostatics w/ adjustment in medications. States he has had ongoing episodes of syncope since discharge, several times per month. +Loop recorder in place, following w / Dr. Ellsworth, also pending appt w/ Dr. Nichols as outpatient. Today, pt states him and his had been out all day running errands and he did a lot of walking, later had 3 episodes of syncope. Pt w/ no recollection of events when they occur, denies dizziness/lightheadedness or chest pain. Notes syncopal episodes only occur during ambulation. [facility] has Home PT, unable to walk more than 2min without having syncope. On arrival, BP 181/89, HR percent on RA, Afebrile. CBC unremarkable, hemoglobin 13.9. Chemistry essentially unremarkable except for creatinine 1.36, previously 1.01 on 06/05/2018. Troponin negative. CXR with no acute findings. Patient update on day of discharge: Seen sitting up in bed. is at bedside. He had a repeat syncopal episode while being walked tested by therapy. It was the same as all prior episodes. No other syncopal episodes. They agree that outpatient follow-up at this time is the best choice and would like to go home. DS: Diagnosis - Discharge Diagnosis (1) Syncope Status: Resolved (2) Generalized weakness Status: Acute DS: Summary Hospital Course: No indication for new medical cause of recurrent syncopal episodes. Possibly due to overexertion. Patient needs outpatient follow-up with neurology. A/P: 1. Syncope: Recurrent. Recent admit 05/12-06/04/18, for same, initially thought to be due to GI bleed, however extensive Neuro/Cardiac work up all negative. Echo 05/15/18 w/ EF 55-60%. +Loop Recorder in place, no events per [employer]. CT Head 05/16/18 negative, MRI/MRA Head 05/31/18 negative, Neck MRA negative, Pulm Perfusion indeterminate probability for PE 05/25/18, Bilateral UE Doppler negative for DVT, EEG negative. S/p eval by Dr. Ibarra during admission , episodes thought to be due to orthostasis as they only occur while standing, has upcoming appt w/ Dr. Nichols, will Consult Neurology for further eval/ recommendations. Telemetry. Initial trop negative, check serial cardiac enzymes to eval for possible ischemia. 2. JUNIOR: Creatinine 1.36, previously 1.01 on 06/05/18, check U/a to eval for possible UTI, monitor I/O-caution w/ diuretics, repeat labs in am. 3. HTN: Uncontrolled. BP 200's systolic while in ER, s/p Clonidine, resume home medications, monitor BP, antihypertensives as needed for BP >180 4. A-fib: Chronic. Resume home meds. Continue Eliquis 5. DM: Uncontrolled. BS >300, s/p Insulin, sliding scale w/ Accu-Cheks 6. DVT Prophylaxis: Eliquis - Time Spent with Patient Total time spent providing and/or coordinating discharge services: Less than 30 minutes - Quality: VTE Deep Vein Thrombosis/Pulmonary Embolism Present on Admission: No Exam Vital signs: Vital Signs 08/03/18 21:07 08/03/18 21:27 08/03/18 22:22 Temperature 98.3 F Pulse Rate 81 89 Respiratory Rate 15 17 Blood Pressure 125/76 181/89 H Pulse Oximetry 95 96 Pulse Oximetry [Exertion on Room Air] 98 Pulse Oximetry [Resting on Room Air] 96 08/03/18 23:41 08/04/18 01:37 08/04/18 02:36 Temperature 98.2 F 98.2 F Pulse Rate 88 86 78 Respiratory Rate 20 20 Blood Pressure 168/68 H 148/82 H 168/74 H Pulse Oximetry 98 96 Pulse Oximetry [Exertion on Room Air] Pulse Oximetry [Resting on Room Air] 08/04/18 05:45 08/04/18 07:32 Temperature 97.7 F Pulse Rate 68 Respiratory Rate 18 20 Blood Pressure 146/63 H Pulse Oximetry 94 L Pulse Oximetry [Exertion on Room Air] Pulse Oximetry [Resting on Room Air] Intake & Output 08/03/18 08/04/18 08/04/18 18:59 06:59 18:59 Output Total 800 / 800 Balance -800 / -800 Weight 151.953 kg Output: Urine 800 / 800 Narrative: GENERAL: Very pleasant morbidly obese white male in no acute distress. SKIN: Focused skin assessment warm and dry. HEENT: PERRLA, EOMI. No scleral icterus or conjunctival pallor. No lid lag or facial droop. CARDIOVASCULAR: Regular rate and rhythm. No obvious murmurs to auscultation. No chest tenderness to palpation. RESPIRATORY: No obvious rhonchi or wheezing. Clear to auscultation. Breath sounds equal bilaterally. GASTROINTESTINAL: Abdomen soft, non-tender, nondistended. BS normal. MUSCULOSKELETAL: Extremities without clubbing, cyanosis, or edema. No obvious deformities. NEUROLOGICAL: Awake, alert and oriented x4. No focal neurologic deficits. Moving both upper and lower extremities spontaneously. PSYCHIATRIC: Appropriate mood and affect. Insight and judgment normal. Results Procedures completed during hospitalization: none Labs on day of discharge: Labs from last 24 hours 08/04/18 08/04/18 08/04/18 04:27 04:27 04:27 WBC 8.8 RBC 4.91 Hgb 13.0 Hct 39.0 MCV 79.6 L MCH 26.4 L MCHC 33.2 RDW 15.9 Plt Count 314 MPV 7.0 Neut % (Auto) 52.6 Lymph % (Auto) 31.1 Antelope % (Auto) 13.0 H Eos % (Auto) 2.3 Baso % (Auto) 1.0 Neut # (Auto) 4.6 Lymph # (Auto) 2.7 Antelope # (Auto) 1.1 H Eos # (Auto) 0.2 Baso # (Auto) 0.1 WBC Differential . Differential Comment Auto diff final Sodium 139 Potassium 3.0 L D Chloride 96 L Carbon Dioxide 33.8 H Anion Gap 9 BUN 17 Creatinine 1.17 Estimated GFR 63 L Random Glucose 197 H D Calcium 8.9 Magnesium 1.9 Total Bilirubin 0.2 AST 16 ALT 31 Alkaline Phosphatase 85 Troponin I 0.02 Total Protein 6.9 Albumin 3.5 08/03/18 08/03/18 22:30 22:30 WBC 10.1 RBC 5.22 Hgb 13.9 Hct 41.7 MCV 79.9 L MCH 26.6 L MCHC 33.3 RDW 15.8 Plt Count 340 MPV 7.6 Neut % (Auto) 59.5 Lymph % (Auto) 26.5 Antelope % (Auto) 11.5 H Eos % (Auto) 1.9 Baso % (Auto) 0.6 Neut # (Auto) 6.0 Lymph # (Auto) 2.7 Antelope # (Auto) 1.2 H Eos # (Auto) 0.2 Baso # (Auto) 0.1 WBC Differential . Differential Comment Auto diff final Sodium 136 Potassium 4.0 Chloride 94 L Carbon Dioxide 32.7 H Anion Gap 9 BUN 18 Creatinine 1.36 H Estimated GFR 53 L Random Glucose 398 H Calcium 9.3 Magnesium Total Bilirubin AST ALT Alkaline Phosphatase Troponin I Less than 0.02 L Total Protein Albumin - Impressions ITS Impressions Chest X-Ray 08/03/18 22:14 CONCLUSION: No acute cardiopulmonary disease demonstrated. Discharge Plan - Discharge Disposition Patient Disposition: 01 Discharge Home - Discharge Condition Condition: Stable - Discharge Order Discharge Orders: Discharge Order (Routine); Ordered 08/04/18 Ordered By: Adeola Mcgrath - Physicians Team Primary Care Provider: UNKNOWN, Attending Provider: Abdulaziz Red Other Providers: Segundo Nichols MD, PhD
[2018-08-04 11:12] VITALS: PULSE 60
[2018-08-04] MEDS ORDERED: Montelukast 10 MG Tablet PO SCH (18:00)
== END 2018-08-04 12:45 | disposition home or self-care (01) ==
LOC: NEPC 20:59 → NEDA 20:59 → NEPHCDU 08-04 02:18
PROVIDERS: ADMIT Family Medicine; ATTEND Family Medicine